=== PATIENT | female | born 1980 | race Caucasian/White ===

== ENCOUNTER 2016-06-07 12:50 | Inpatient (IN) | payer OTHER ==
[~2016-06-07] VITALS: Ht 157.5 cm; Wt 68.0 kg
[~2016-06-07 12:50] MED LIST: ALBUTEROL 3 ML3 ML INH; ALBUTEROL0.09 MG/A1 INH; AMOX-CLAV 875-1 EACH PO; AUGMENTIN 875875 MG PO; AZITHROMYCIN250 MG PO; BENADRYL ALLERG25 M1 PO; COTOLONE5 MG PO; FIORICET 325 MG1 TAB PO; LIDODERM 5% PAT1 PAT EXT; MONTELUKAST SOD10 M1 PO; MUCINEX1200 MG PO; NEURONTIN300 MG PO; OXYCODONE HCL30 M1 PO; OXYCODONE HCL30 MG PO; PAROXETINE30 MG PO; PAXIL40 M1 PO; PREDNISONE 10MG10 M1 PO; PREDNISONE10 M2 PO; PREDNISONE10 MG PO; PRENATAL VITAM1 EAC2 PO; ROBITUSSIN W/CO10 ML PO; ROXICODONE30 M1 PO; SINGULAIR10 MG PO; SPIRIVA18 MCG INH; SYMBICORT 160/41 PUF INH; TESSALON PERLE100 MG PO; TRAZODONE50 MG PO; ZOFRAN ODT4 M1 SL; ZOLPIDEM TARTRAT5 M1 PO; ZYRTEC10 M3 PO
--- NOTE | 2016-06-07 13:01 | ED DYSPNEA/ASTHMA COMPLAINT ---
History of Present Illness General Chief Complaint: Wheezing/Asthma Stated Complaint: ASMTHA ATTACK, ON INHALE R SIDE SHOULDER PAIN Source: patient, old records Exam Limitations: no limitations Vital Signs & Intake/Output Vital Signs & Intake/Output Vital Signs Date Time Temp Pulse Resp B/P Pulse O2 O2 Flow FiO2 Ox Delivery Rate 06/07 1811 98.2 100 20 116/62 91 Nasal 2.5L Cannula 06/07 1406 103 20 116/76 94 Nasal 4.0L Cannula 06/07 1401 94 Nasal 4.0L Cannula 06/07 1325 92 Nasal 3.0L Cannula 06/07 1253 96.0 120 20 128/86 90 Room Air Allergies Coded Allergies: NO KNOWN ALLERGIES (03/22/15) Reconcile Medications Albuterol Sulfate (Albuterol Sulfate Hfa) 90 MCG HFA.AER.AD 2 PUFF INH Q4-6 PRN PRN SHORTNESS OF BREATH 90 MCG PER PUFF Budesonide/Formoterol Fumara (Symbicort 160-4.5 Mcg Inhaler) 160 MCG/4.5 MCG PUF 2 PUF INH BID ASTHMA Oxycodone HCl 30 MG TABLET 1 TAB PO 4 TIMES/DAY PRN TMJ (Reported) Prednisone 10 MG TABLET 3 TAB PO DAILY BREATHING PROBLEMS (Reported) Tiotropium Caliente (Spiriva) 18 MCG CAP.W.DEV 1 CAP INH DAILY ASTHMA ( Reported) Trazodone HCl 50 MG TABLET 1 TAB PO QPM SLEEP (Reported) Triage Note: PT TO ED C/O ASTHMA ATTACK. N/V/D X 1 WEEK. PT HAS BEEN ON 30MG PREDNISONE DAILY. STATES HAS BEEN ON PREDNISONE SINCE DECEMBER. PT SEE'S DR GAMBLE FOR HER ASTHMA. RA SATS 90%. PT APPEARS SOB. PT TAKEN TO ROOM 7. Triage Nurses Notes Reviewed? yes : No Patient currently breastfeeds: No HPI: Patient is a 35-year-old female presents complaining of approximately one week of nausea, vomiting, diarrhea with intermittent in diffuse abdominal pain. Patient also reporting that just prior to arrival to the hospital she began with dyspnea and wheezing. Patient is currently on 30 mg of prednisone daily for cryptogenic organizing pneumonia. Patient has been admitted to the hospital she estimates approximately 20 times over the past 2 years due to respiratory issues. Patient has never been placed on a mechanical ventilator. Cough is nonproductive. Wheezing and dyspnea is currently severe. Patient reports that the vomiting and diarrhea has waxed and waned. The past couple of days the stool has been dark and at times appeared black. Patient started taking Pepto- Bismol once a day on Friday. Right posterior thoracic pain intermittent and sharp in nature. Patient denies fevers. Past History Travel History Traveled to [place] past 21 day No Medical History Any Pertinent Medical History? see below for history Neurological: NONE EENT: TMJ arthritis s/p jaw surgery at [facility] 2010 Cardiovascular: syncope (vasovagal(has had cardio eval)) Respiratory: asthma, bronchitis, pneumonia Gastrointestinal: constipation (IBS), irritable bowel syndrome Hepatic: NONE Renal: NONE Musculoskeletal: fibromyalgia Psychiatric: anxiety Endocrine: NONE Blood Disorders: NONE Cancer(s): NONE BUSINESS LIBRARIAN/Reproductive: NONE History of MRSA: No History of VRE: No History of CDIFF: No Pneumonia Vaccine: 03/23/15 Surgical History Surgical History: appendectomy, plantar wart removal jaw surgery for TMJ Psychosocial History Who do you live with Family Services at Home None What is your primary language Italian Tobacco Use: Never used ETOH Use: denies use Illicit Drug Use: denies illicit drug use Family History Family History, If Any: FATHER (Asthma). FH: diabetes mellitus UNCLE-MATERNAL (BOOP). GRANDMOTHER-MATERNAL (CHF). Relation not specified for: FH: CAD (coronary artery disease) FH: HTN (hypertension) FH: ovarian cancer FH: uterine cancer Hx Contributory? No Review of Systems Review of Systems Constitutional: Denies: chills, fever. EENTM: Reports: no symptoms. Respiratory: Reports: see HPI. Cardiovascular: Denies: chest pain. GI: Reports: see HPI. Genitourinary: Reports: no symptoms. Musculoskeletal: Reports: back pain. Skin: Reports: no symptoms. Neurological/Psychological: Reports: no symptoms. Hematologic/Endocrine: Reports: no symptoms. Immunologic/Allergic: Reports: no symptoms. Physical Exam Physical Exam General Appearance: alert, awake Head: atraumatic, normal appearance Eyes: Bilateral: normal appearance, PERRL, EOMI. Ears, Nose, Throat: normal pharynx, normal ENT inspection, hearing grossly normal Neck: normal inspection, supple, full range of motion Respiratory: INCREASED RESPIRATORY EFFORT. dIFFUSE MODERATE INSPIRATORY AND EXPIRATORY WHEEZING WITH DIMINISHED LUNG SOUNDS Cardiovascular: tachycardia (REGULAR RHYTHM) Gastrointestinal: normal bowel sounds, soft, MILD RIGHT UPPER QUADRANT TENDERNESS Extremities: normal inspection, normal capillary refill, normal range of motion Neurologic/Psych: awake, alert, oriented x 3 Skin: intact, normal color, warm/dry Lymphatic: no anterior cervical carol Core Measures ACS in differential dx? No Severe Sepsis Present: No Septic Shock Present: No Progress Differential Diagnosis: asthma, bronchitis, pulmonary embolism, pneumonia, intra -abdominal infection, gastroenteritis, biliary colic, cholecystitis Plan of Care: Orders Procedure Date/time Status Regular Diet 06/08 B Active Saline Lock 06/07 1935 Active Misc Message 06/07 1935 Active ED Holding Orders 06/07 1935 Active Admit to inpatient 06/07 1935 Active Code Status 06/07 1935 Active Patient Data 06/07 1928 Active ARTERIAL BLOOD GAS (GEN) 06/07 1827 Active D-DIMER 06/07 1459 Complete Intake & Output 06/07 1350 Active LIPASE 06/07 1308 Complete HUMAN BETA HCG SCREEN 06/07 1308 Complete COMPREHENSIVE METABOLIC PANEL 06/07 1308 Complete CBC WITHOUT DIFFERENTIAL 06/07 1308 Complete AMYLASE 06/07 1308 Complete Laboratory Tests 06/07/16 1905: pH 7.41, pCO2 39, pO2 71 L, HCO3 24, ABG O2 Sat (Measured) 94.0 L, P-50 (Temp Corrected) Y, Carboxyhemoglobin 0.6 L, O2 Concentration % 3L, Temperature 97.2, O2 Delivery Method N/C, Phlebotomy Draw Site RIGHT RADIAL 06/07/16 1640: D-Dimer 2303 H 06/07/16 1530: CBC w Diff MAN DIFF ORDERED, RBC 5.36, MCV 84.4, MCH 28.2, RDW 14.7 H, MPV 8.1, Gran % 60.7, Lymphocytes % 15.8 L, Monocytes % 2.5, Eosinophils % 20.8 H, Basophils % 0.2, Absolute Granulocytes 10.7 H, Segmented Neutrophils 57, Band Neutrophils 2, Absolute Lymphocytes 2.8, Lymphocytes 16 L, Monocytes 5, Absolute Monocytes 0.4, Eosinophils 19 H, Absolute Eosinophils 3.6, Basophils 1 , Absolute Basophils 0, Platelet Estimate VERIFIED BY SMEAR, Normocytic RBCs VERIFIED, Normochromic RBCs VERIFIED, PUBS MCHC 33.4, Fld Total RBCs Counted 100 06/07/16 1340: Anion Gap 14, Estimated GFR > 60, BUN/Creatinine Ratio 11.3, Glucose 91, Calcium 9.7, Total Bilirubin 0.6, AST 22, ALT 26, Alkaline Phosphatase 104, Total Protein 7.2, Albumin 4.3, Globulin 2.9, Albumin/Globulin Ratio 1.5, Amylase 35, Lipase 110, Total Beta HCG NEGATIVE 1350: Patient reports mild improvement. Discussed with Dr. Mei. 1450: Patient reports improvement of wheezing but continues with dyspnea. Patient's oxygen saturation only 91% on 2 L via nasal cannula. Dr. Gamble paged to discuss 1454: Discussed with Dr. Gamble: recommends adding on d-dimer. Agrees with medications given, no other medication recommendations at this time. 1620: No change in clinical condition. Discussed results with patient. Awaiting d-dimer results. 1820: Discussed with Dr. Sky: will admit, requesting ABG (ARTI COSBY,THOR) Diagnostic Imaging: Viewed by Me: Radiology Read, Ultrasound. Discussed w/RAD: Radiology Read, Ultrasound. Radiology Impression: PATIENT: TERESA RODRIGEZ PRESENT AGE: 35 PATIENT ACCOUNT NO: [id number] : 81 LOCATION: [facility] ORDERING PHYSICIAN: THOR COSBY SERVICE DATE: 06/07/16 EXAM TYPE: US - US-LIMITED ABDOMEN EXAMINATION: US ABDOMEN LIMITED CLINICAL INFORMATION: Abdominal pain. Vomiting and diarrhea. Right upper quadrant abdominal pain.. COMPARISON: Abdominal CT scan of 08/27/07. TECHNIQUE: Real-time imaging of the right upper quadrant abdominal viscera. FINDINGS: PANCREAS: Much of the body and tail are obscured by overlying bowel gas. Visualized portions are unremarkable. LIVER: Normal. The liver demonstrates normal size, contour and echogenicity. No focal lesion or intrahepatic biliary duct dilatation. GALLBLADDER: Normal. The gallbladder is physiologically distended without evidence of stones, sludge, polyps, wall thickening or pericholecystic fluid. COMMON BILE DUCT: Normal in caliber measuring 0.4 cm in diameter. RIGHT KIDNEY: Normal. No hydronephrosis. No renal calculi or focal parenchymal lesions. The kidney measures 8.6 cm in maximum dimension. FREE FLUID: None. IMPRESSION: Unremarkable examination. Incomplete assessment of the pancreas. DICTATED BY: TERESA RUFFIN MD DATE/TIME DICTATED:06/07/161353 CORRUGATOR MACHINE OPERATOR:RAD.LEON DATE/TIME TRANSCRIBED:06/07/161353 CONFIDENTIAL, DO NOT COPY WITHOUT APPROPRIATE AUTHORIZATION. <Electronically signed in Other Vendor System> SIGNED BY: TERESA RUFFIN MD 06/07/16 1401, PATIENT: TERESA RODRIGEZ PRESENT AGE: 35 PATIENT ACCOUNT NO: [id number] : 81 LOCATION: [facility] ORDERING PHYSICIAN: THOR COSBY SERVICE DATE: 140 EXAM TYPE: RAD - XRY-PORTABLE CHEST XRAY EXAMINATION: XR PORTABLE CHEST CLINICAL INFORMATION: Dyspnea, hypoxia and cough. COMPARISON: 04/18/2016 and . TECHNIQUE: Portable view of the chest was obtained. FINDINGS: No acute significant abnormality is noted involving the heart, lungs, mediastinum, bony thorax or soft tissues. Coarse reticulonodular markings are present at both bases and are unchanged. Previously, it was suggested that this might be multifocal pneumonia, however, these findings may be chronic as the findings back in 2014 appear similar as well. IMPRESSION: A worrisome finding is not present. Coarse reticulonodular opacities at the lung bases without significant change. DICTATED BY: ODETTE BLAIR MD DATE/TIME DICTATED:06/07/161447 CORRUGATOR MACHINE OPERATOR:NABOR DATE/TIME TRANSCRIBED:06/07/161447 CONFIDENTIAL, DO NOT COPY WITHOUT APPROPRIATE AUTHORIZATION. <Electronically signed in Other Vendor System> SIGNED BY: ODETTE BLAIR MD 06/07/16 1513, PATIENT: TERESA RODRIGEZ PRESENT AGE: 35 PATIENT ACCOUNT NO: [id number] : 81 LOCATION: [facility] ORDERING PHYSICIAN: THOR COSBY SERVICE DATE: 06/07/16 EXAM TYPE: CAT - CTA CHEST-PULMONARY EMBOLISM EXAMINATION: CT ANGIOGRAM OF THE CHEST WITH AND WITHOUT CONTRAST (CT PULMONARY ANGIOGRAM FOR PE) CLINICAL INFORMATION: 35-year-old female patient with dyspnea and elevated d-dimer. COMPARISON: CTA of the chest on 09/09/2014, CT of the chest on 05/31/2015, and CTA of the chest on 04/18/2016. No pulmonary emboli were seen on the prior CTA exams of the chest. Rather, both exams demonstrated lung disease. TECHNIQUE: Prior to contrast administration, noncontrast localization images were obtained. Subsequently, multidetector volumetric imaging was performed from the thoracic inlet to below the diaphragms following the administration of 95 mL Optiray 320 intravenous contrast. No contrast reaction reported Sagittal, coronal, and MIP oblique sagittal reformatted images were obtained on the CT workstation, uploaded to PACS, and reviewed. Total exam dose-length product 370 mGy-cm FINDINGS: QUALITY OF STUDY/CONTRAST BOLUS: Satisfactory. (Levo phase) PULMONARY ARTERIES: No central or segmental pulmonary emboli. THORACIC AORTA: No aneurysm or dissection. LUNG: Reexamination of the lungs again shows the bilateral patchy groundglass opacities that have been previously described. There is a patchy distribution with preservation of lung volumes. The distribution of this patient's migratory lung disease waxes and wanes, demonstrating fleeting evolution. It is important to note, that the patient's lung disease has significantly improved on long-term steroids. PLEURA: No pleural effusion or pneumothorax. MEDIASTINUM: Normal heart size. No pericardial effusion. No hilar or mediastinal lymphadenopathy. No evidence of septal bowing or right heart strain. CHEST WALL/AXILLA: No axillary or internal mammary lymphadenopathy. OSSEOUS STRUCTURES: No acute or suspicious osseous abnormality. UPPER ABDOMEN: Unremarkable. No reflux of contrast into the hepatic veins to suggest elevated right heart pressures. IMPRESSION: 1. No evidence of pulmonary embolism. 2. Significant improvement in the patient's lung disease. The radiologic pattern fits the diagnosis of cryptogenic organizing pneumonia. VTE: Negative. DICTATED BY: ATTILA GALINDO MD DATE/TIME DICTATED: 06/07/161802 CORRUGATOR MACHINE OPERATOR:NABOR DATE/TIME TRANSCRIBED:06/07/161802 CONFIDENTIAL, DO NOT COPY WITHOUT APPROPRIATE AUTHORIZATION. <Electronically signed in Other Vendor System> SIGNED BY: ATTILA GALINDO MD 06/07/16 1832 Initial ED EKG: none Departure Departure Disposition: STILL A PATIENT Condition: Stable Clinical Impression Primary Impression: Status asthmaticus Qualifiers: Asthma severity: severe persistent Qualified Code: J45.52 - Severe persistent asthma with status asthmaticus Referrals: THEODORA OCONNOR MD (PCP/Family) Departure Forms: Customer Survey General Discharge Information Admission Note Spoke With: MICK SKY MD Documentation of Exam: Documentation of any treatments & extenuating circumstances including Concerns Regarding Discharge (functional status, medication knowledge or non-compliance, living conditions, etc.) that warrant an admission rather than observation: Supplemental oxygen, IV corticosteroids, total respiratory care, pulmonary consultation. Despite continuous high-dose nebulizer treatment, IV steroids, IV magnesium patient continues to require supplemental oxygen. Discharge would be medically harmful. Critical Care Note Critical Care Note Critical Care Time: 30-74 min
[2016-06-07] MEDS ORDERED: PREDNISONE10 M2 PO (14:01)
--- NOTE | 2016-06-07 14:01 | ULTRASOUND REPORT ---
EXAMINATION: US ABDOMEN LIMITED CLINICAL INFORMATION: Abdominal pain. Vomiting and diarrhea. Right upper quadrant abdominal pain.. COMPARISON: Abdominal CT scan of 08/27/07. TECHNIQUE: Real-time imaging of the right upper quadrant abdominal viscera. FINDINGS: PANCREAS: Much of the body and tail are obscured by overlying bowel gas. Visualized portions are unremarkable. LIVER: Normal. The liver demonstrates normal size, contour and echogenicity. No focal lesion or intrahepatic biliary duct dilatation. GALLBLADDER: Normal. The gallbladder is physiologically distended without evidence of stones, sludge, polyps, wall thickening or pericholecystic fluid. COMMON BILE DUCT: Normal in caliber measuring 0.4 cm in diameter. RIGHT KIDNEY: Normal. No hydronephrosis. No renal calculi or focal parenchymal lesions. The kidney measures 8.6 cm in maximum dimension. FREE FLUID: None. IMPRESSION: Unremarkable examination. Incomplete assessment of the pancreas.
[2016-06-07] MEDS ORDERED: TRAZODONE HCL50 M1 PO (14:02)
[2016-06-07] MEDS ORDERED: OXYCODONE HCL30 M1 PO (14:03)
--- NOTE | 2016-06-07 15:13 | RADIOLOGY REPORT ---
EXAMINATION: XR PORTABLE CHEST CLINICAL INFORMATION: Dyspnea, hypoxia and cough. COMPARISON: 04/18/2016 and 09/09/2014. TECHNIQUE: Portable view of the chest was obtained. FINDINGS: No acute significant abnormality is noted involving the heart, lungs, mediastinum, bony thorax or soft tissues. Coarse reticulonodular markings are present at both bases and are unchanged. Previously, it was suggested that this might be multifocal pneumonia, however, these findings may be chronic as the findings back in 2014 appear similar as well. IMPRESSION: A worrisome finding is not present. Coarse reticulonodular opacities at the lung bases without significant change.
[2016-06-07 15:41] LABS: ABSOLUTE BASOPHIL COUNT 0 /CUMM (0.0-0.2); ABSOLUTE EOSINOPHIL COUNT 3.6 /CUMM (0.0-0.7); ABSOLUTE GRANULOCYTE CT 10.7 /CUMM (1.4-6.5); ABSOLUTE LYMPH COUNT 2.8 /CUMM (1.2-3.4); ABSOLUTE MONOCYTE COUNT 0.4 /CUMM (0.10-0.60); BASOPHIL % 0.2 % (0.0-2.0); EOSINOPHIL % 20.8 % (0-5); GRANULOCYTE % 60.7 % (42.2-75.2); HEMATOCRIT 45.2 % (37-47); MEAN CORPUSCULAR HGB 28.2 PG (27.0-31.0); MEAN CORPUSCULAR HGB CONC 33.4 G/DL (33.0-37.0); MEAN CORPUSCULAR VOLUME 84.4 FL (81.0-99.0); MEAN PLATELET VOLUME 8.1 FL (7.4-10.4); PLATELET COUNT 253 /CUMM (130-400); RBC DISTRIBUTION WIDTH 14.7 % (11.5-14.5); RED BLOOD CELL CT 5.36 /CUMM (4.20-5.40); WHITE BLOOD CELL COUNT 17.6 /CUMM (4.8-10.8)
--- NOTE | 2016-06-07 18:34 | CT SCAN REPORT ---
EXAMINATION: CT ANGIOGRAM OF THE CHEST WITH AND WITHOUT CONTRAST (CT PULMONARY ANGIOGRAM FOR PE) CLINICAL INFORMATION: 35-year-old female patient with dyspnea and elevated d-dimer. COMPARISON: CTA of the chest on 09/09/2014, CT of the chest on 05/31/2015, and CTA of the chest on 04/18/2016. No pulmonary emboli were seen on the prior CTA exams of the chest. Rather, both exams demonstrated lung disease. TECHNIQUE: Prior to contrast administration, noncontrast localization images were obtained. Subsequently, multidetector volumetric imaging was performed from the thoracic inlet to below the diaphragms following the administration of 95 mL Optiray 320 intravenous contrast. No contrast reaction reported Sagittal, coronal, and MIP oblique sagittal reformatted images were obtained on the CT workstation, uploaded to PACS, and reviewed. Total exam dose-length product 370 mGy-cm FINDINGS: QUALITY OF STUDY/CONTRAST BOLUS: Satisfactory. (Levo phase) PULMONARY ARTERIES: No central or segmental pulmonary emboli. THORACIC AORTA: No aneurysm or dissection. LUNG: Reexamination of the lungs again shows the bilateral patchy groundglass opacities that have been previously described. There is a patchy distribution with preservation of lung volumes. The distribution of this patient's migratory lung disease waxes and wanes, demonstrating fleeting evolution. It is important to note, that the patient's lung disease has significantly improved on long-term steroids. PLEURA: No pleural effusion or pneumothorax. MEDIASTINUM: Normal heart size. No pericardial effusion. No hilar or mediastinal lymphadenopathy. No evidence of septal bowing or right heart strain. CHEST WALL/AXILLA: No axillary or internal mammary lymphadenopathy. OSSEOUS STRUCTURES: No acute or suspicious osseous abnormality. UPPER ABDOMEN: Unremarkable. No reflux of contrast into the hepatic veins to suggest elevated right heart pressures. IMPRESSION: 1. No evidence of pulmonary embolism. 2. Significant improvement in the patient's lung disease. The radiologic pattern fits the diagnosis of cryptogenic organizing pneumonia. VTE: Negative.
--- NOTE | 2016-06-07 19:33 | History & Physical ---
RYLIEJULIA SHEEHAN 06/07/161931: General Information and HPI MD Statement: I have seen and personally examined TERESA RODRIGEZ and documented this H&P. The patient is a 35 year old F who presented with a patient stated chief complaint of [asthma]. Source of Information: patient, old records Exam Limitations: no limitations History of Present Illness: 35-year-old female with PMH of PNA, asthma attacks, severe dust sensitivity, recent admission on March 2016 to [facility] for shortness of breath during which patient was diagnosed with cryptogenic pneumonia by Dr. Verdugo and is started on long-term prednisone therapy. Two weeks ago patient had two close relatives with URI symptoms, she is not a smoker and received flu vaccine this year. Moving forward, patient developed worsenig SOB and productive cough with minimal sputum production, congestion and sinus fullness and tenderness and PND. Over the span two weeks she needed more Albuterol inhaler and became wheezy. Denies fever, chills, chest pain, AMS. About a week into her worsening respiratory symptoms, patient develped watert diarrhea and N/V ( mainly food and no blood; 3-4 episodes of V/D every day associated with abdominal pain, no blood , no travel). She had a phone conversation with Dr. Verdugo, who recommended her to come to the Ed and get checked. After leaving her house, her dyspnea got severe and she became confused and slurred. According to her friend/patient she had loud expiratory/inspiratory wheeze. Allergies/Medications Allergies: Coded Allergies: NO KNOWN ALLERGIES (03/22/15) Home Med list Albuterol Sulfate (Albuterol Sulfate Hfa) 90 MCG HFA.AER.AD 2 PUFF INH Q4-6 PRN PRN SHORTNESS OF BREATH 90 MCG PER PUFF Budesonide/Formoterol Fumara (Symbicort 160-4.5 Mcg Inhaler) 160 MCG/4.5 MCG PUF 2 PUF INH BID ASTHMA Oxycodone HCl 30 MG TABLET 1 TAB PO 4 TIMES/DAY PRN TMJ (Reported) Prednisone 10 MG TABLET 3 TAB PO DAILY BREATHING PROBLEMS (Reported) Tiotropium [place] (Spiriva) 18 MCG CAP.W.DEV 1 CAP INH DAILY ASTHMA ( Reported) Trazodone HCl 50 MG TABLET 1 TAB PO QPM SLEEP (Reported) Compliance With Home Meds: GOOD Past History Travel History Traveled to [place] past 21 day No Medical History Neurological: NONE EENT: TMJ arthritis s/p jaw surgery at [facility] 2010 Cardiovascular: syncope (vasovagal(has had cardio eval)) Respiratory: asthma, bronchitis, pneumonia Gastrointestinal: constipation (IBS), irritable bowel syndrome Hepatic: NONE Renal: NONE Musculoskeletal: fibromyalgia Psychiatric: anxiety Endocrine: NONE Blood Disorders: NONE Cancer(s): NONE 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 FH: diabetes mellitus UNCLE-MATERNAL (BOOP). GRANDMOTHER-MATERNAL (CHF). Relation not specified for: FH: CAD (coronary artery disease) FH: HTN (hypertension) FH: ovarian cancer FH: uterine cancer Psychosocial History Who Do You Live With? SIGNIFICANT OTHER Services at Home: None Primary Language: Sinhala ETOH Use: denies use Illicit Drug Use: denies illicit drug use Functional Ability ADLs Independent: dressing, eating, toileting, bathing. Ambulation: independent IADLs Independent: shopping, housework, finances, food prep, telephone, transportation , medication admin. Review of Systems Review of Systems Constitutional: Reports: see HPI, malaise. Denies: no symptoms, chills, diaphoresis, fever, weakness, unexplained weight loss. EENTM: Denies: no symptoms, see HPI, blurred vision, double vision, visual changes, eye pain, eye drainage, eye tearing, icterus, ear discharge, ear pain, ear redness, hearing changes, nasal congestion, epistaxis, nasal pain, throat pain, throat swelling, mouth pain, tooth pain. Cardiovascular: Reports: see HPI. Denies: chest pain, edema, orthopena, palpitations, peripheral edema, syncope. Respiratory: Reports: cough, short of breath, sputum production, wheezing. Denies: hemoptysis, orthopnea. GI: Denies: abdominal pain, bloating, constipation, diarrhea, distention, bowel incontinence, melena, nausea, bloody stool, changes in stool, vomiting, steatorrhea. Genitourinary: Denies: discharge, dysuria, frequency, hematuria, hesitation, nocturia, pain, urgency. Musculoskeletal: Denies: back pain, gout, joint pain, joint swelling, muscle pain, muscle stiffness, neck pain. Skin: Denies: cysts, change in skin color, change in hair/nails, dryness, erythema, jaundice, lesions, lymphangitis, lumps, moles, rash. Neurological/Psychological: Reports: headache. Denies: anxiety, ataxia, cognitive dysfunction, confusion, depressed, dementia, emotional problems, numbness, paresthesia, pre-existing deficit, petit mal seizures, tingling, tremors, tonic-clonic seizures, unable to move lower ext, unable to move upper ext, weakness, other. Hematologic/Endocrine: Denies: bruising, bleeding, polyuria, polydipsia, other. Immunologic/Allergic: Denies: splenectomy, HIV/AIDS, lymphadenopathy, other. All Other Systems: Reviewed and Negative Exam & Diagnostic Data Last 24 Hrs of Vital Signs/I&O Vital Signs Date Time Temp Pulse Resp B/P Pulse O2 O2 Flow FiO2 Ox Delivery Rate 06/07 2111 Nasal 3.0L Cannula 06/07 2022 96.4 89 18 100/59 94 Nasal 3.0L Cannula 06/07 1811 98.2 100 20 116/62 91 Nasal 2.5L Cannula 06/07 1406 103 20 116/76 94 Nasal 4.0L Cannula 06/07 1401 94 Nasal 4.0L Cannula 06/07 1325 92 Nasal 3.0L Cannula 06/07 1253 96.0 120 20 128/86 90 Room Air Intake & Output 06/07 1600 06/07 0800 06/07 0000 Intake Total 100 Output Total Balance 100 Intake, IV 100 Patient 160 lb Weight Physical Exam General Appearance Alert, Oriented X3, Cooperative, Mild Distress Skin No Rashes, No Breakdown, No Significant Lesion HEENT Atraumatic, PERRLA, EOMI, Mucous Membr. moist/pink Neck Supple, No JVD, No thryomegaly, +2 Carotid Pulse wo Bruit, No LAD Lymphatic Axillary nl, Cervical nl Cardiovascular Normal S1, Normal S2, No Murmurs Lungs expiratory wheeze, no pulsus paradoxus Abdomen Normal Bowel Sounds, Soft Neurological Normal Speech Extremities No Cyanosis, no central cyanosis Vascular Normal Pulses, Pulses Symmetrical Assessment/Plan Assessment: 35-year-old woman with past medical history significant for recurrent asthma attack and cryptogenic pneumonia was admitted for asthma exacerbation and gastroenteritis. ABG: PH 7.41/PCO2 39/PO2 71/HCO3 24 WBC 17.6 with left shift but no bandemia, platelet count 253 DD: 2303 BEP: Na 143, K 4.3, AG14, BUN 9,Cr 0.8, Abdominal ultrasound: Insignificant Chest CTA: Negative for pulmonary embolism showing cryptogenic pneumonia no significant change compared to previous CTs Chest x-ray: Coarse reticular nodular changes compatible w/ changes in 2015; no acute change List of active problems #1 asthma exacerbation * Continue IV Solu-Medrol 40 mg every 8 * Continue pro-air 3 mL every 4 as needed * Continue Symbicort 2 puffs twice a day * Continuous Spiriva 2 puffs twice a day * IV hydration with normal saline 75 mL per hour-repleting insensible water loss * No sputum cultures * Off antibiotics * O2 supplement is a cannula targets O2 saturation above 92% * TRC [id number] as needed #2 gastroenteritis; * Check C. difficile * Advance diet if tolerated clear liquids * With a chlorpropamide 5 mg every 4 as needed for nausea * IV fluids replacement as it was discussed above #3 cryptogenic pneumonia * IV Solu-Medrol as was discussed above * Consult pulmonology in the a.m. and Dr. Verdugo on Friday #4 leukocytosis-was possibly secondary to prednisone treatments no focal source of infection watch off antibiotics #5 chronic pain * Continue oxycodone 30 mg every 4 h * Tylenol 650 mg every 4 as needed for moderate moderate pain Full code Heparin 5000 U Q8 SQ As Ranked By This Provider Problem List: 1. Status asthmaticus Qualifiers Asthma severity: severe persistent Qualified Code: J45.52 - Severe persistent asthma with status asthmaticus 2. Cryptogenic organizing pneumonia 3. Leukocytosis Core Measures/Miscellaneous Acute Coronary Syndrome ACS Diagnosis: No Cerebrovascular Accident CVA/TIA Diagnosis: No Congestive Heart Failure CHF Diagnosis: No Venous Thromboembolism VTE Risk Factors: Acute medical illness, Obesity VTE Prophylaxis Ordered Inpt: Mech & Pharm No Mech VTE prophylaxis d/t: No contraindications No VTE Pharm Prophylaxis d/t: VTE low risk VTE Diagnosis: No VTE Type: NONE VTE Confirmed by (Test): NONE Severe Sepsis Severe Sepsis Present: No Septic Shock Septic Shock Present: No Miscellaneous Documentation Attending Case Discussed With: MICK MORRISON MD Primary Care Physician: ELVIN CHAPARRO,THEODORA Mehta 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 Level of Patient Care: General Medicine Resident Review Statement Resident Statement: examined this patient, discussed with internet consultant, agreed with internet consultant, discussed with family, reviewed EMR data (avail), discussed with nursing , discussed with case mgmt, reviewed images, amended to note MICK MORRISON 06/08/16 0804: Attending MD Review Statement Attending Statement Attending MD Statement: examined this patient, discuss w/resident/PA/CIG[employer] C[employer]ON SEALER, agreed w/resident/PA/CIGAR[employer] C[employer]ON SEALER, reviewed EMR data (avail), reviewed images, amended to note Attending Assessment/Plan: Cc nausea vomiting diarrhea, worsening of shortness of breath PMH: Asthma, recently diagnosed cryptogenic organizing pneumonia currently on tapering dose of steroid Patient had one week duration of nausea vomiting and diarrhea with vague abdominal pain, not relieved after bowel movement, it is not crampy. She also had upper respiratory symptoms since last 2 weeks along with cough and sputum production. She was on her way to ER for evaluation of diarrhea when her shortness of breath worsened. Vitals: Afebrile, mild tachycardia, RR, BP, within acceptable range O2 saturation well on 3 L. On exam: A O 3, no respiratory distress, anxious, neck supple, no lymphadenopathy, mucosa moist, no pharyngeal congestion. CVS: S1-S2, RRR. RS: No obvious rhonchi or wheezing heard. Abdomen soft, NT, ND, no guarding are rigidity, bowel sounds present. No focal neurological deficit. Labs: WBC 17.6, BMP, LFT unremarkable, d-dimer 2303. ABG does not show any respiratory acidosis., Lipase 110 Imaging: CT angiogram chest: Significant improvement in the patient's lung disease. Ultrasound of the abdomen: Unremarkable. Assessment and plan #1 asthma exacerbation: Even though patient had wheezing at the time of presentation in ER, eventually improved quite a bit with nebulization treatment, continue IV methylprednisolone 40 mg every 8 hour, albuterol nebulizations, taper off oxygen. Informed pulmonology about patient being in hospital, patient is under treatment for cryptogenic organizing pneumonia. #2 nausea vomiting and diarrhea: Probably a viral origin, check C. difficile as patient has been in hospital multiple times. If diarrhea doesn't improve then patient may benefit from stool cultures and stool ova parasite. Continue gentle hydration. No Lomotil or Imodium. #3 DVT prophylaxis with Lovenox, adequate pain control.
[2016-06-07 23:42] VITALS: BP 112/70
--- NOTE | 2016-06-08 05:19 | PN- Housestaff ---
Subjective Follow-up For: Asthma exacerbation Cryptogenic pneumonia Chronic pain Complaints: wheeze- improving, shortness of breath-is improving, mild abdominal pain,improving Subjective: Patient was visited and interviewed this morning. Over overnight she received respiratory treatment and IV Solu-Medrol. His symptoms has improved. Nausea vomiting diarrhea has subsided patient tolerated food very well however wishes to keep the diet on full liquid diet. Vital signs are stable she is on 3 L of oxygen nasal cannula ambulating without oxygen comfortably. Review of Systems Constitutional: Denies: chills, diaphoresis, fever, malaise, weakness, unexplained weight loss. EENTM: Denies: blurred vision, double vision, visual changes, eye pain, eye drainage, eye tearing, icterus, ear discharge, ear pain, ear redness, hearing changes, nasal congestion, epistaxis, nasal pain, throat pain, throat swelling, mouth pain, tooth pain. Cardiovascular: Denies: chest pain, edema, orthopena, palpitations, peripheral edema, syncope. Respiratory: Reports: cough, short of breath, sputum production, wheezing. Denies: hemoptysis, orthopnea. Gastrointestinal: Reports: abdominal pain, bloating, diarrhea, nausea, vomiting. Denies: constipation, distention, bowel incontinence, melena, changes in stool, steatorrhea. Genitourinary: Denies: discharge, dysuria, frequency, hematuria, hesitation, nocturia, pain, urgency. Musculoskeletal: Denies: back pain, gout, joint pain, joint swelling, muscle pain, muscle stiffness, neck pain. Skin: Denies: cysts, change in skin color, change in hair/nails, dryness, erythema, jaundice, lesions, lymphangitis, lumps, moles, rash. Objective Last 24 Hrs of Vital Signs/I&O Vital Signs Date Time Temp Pulse Resp B/P Pulse O2 O2 Flow FiO2 Ox Delivery Rate 06/08 0000 94 Nasal 3.0L Cannula 06/07 2342 97.4 90 20 112/70 92 06/07 2121 94 Nasal 3.0L Cannula 06/07 2110 Nasal 3.0L Cannula 06/07 2022 96.4 89 18 100/59 94 Nasal 3.0L Cannula 06/07 1811 98.2 100 20 116/62 91 Nasal 2.5L Cannula 06/07 1406 103 20 116/76 94 Nasal 4.0L Cannula 06/07 1401 94 Nasal 4.0L Cannula 06/07 1325 92 Nasal 3.0L Cannula 06/07 1253 96.0 120 20 128/86 90 Room Air Intake & Output 06/08 0800 06/08 0000 06/07 1600 Intake Total 1100 525 100 Output Total Balance 1100 525 100 Intake, IV 600 225 100 Intake, Oral 500 300 Patient 150 lb 160 lb Weight Physical Exam General Appearance: Alert, Oriented X3, Cooperative, No Acute Distress Skin: No Rashes, No Breakdown, No Significant Lesion HEENT: Atraumatic, PERRLA, EOMI, Mucous Membr. moist/pink Neck: No JVD, No thryomegaly Cardiovascular: Normal S1, Normal S2, No Murmurs, Gallops Lungs: Clear to Auscultation, Normal Air Movement Abdomen: Normal Bowel Sounds, Soft, No Tenderness, No Hepatospenomegaly Neurological: Normal Speech, Strength at 5/5 X4 Ext Extremities: No Clubbing, No Cyanosis, No Edema, Normal Pulses Vascular: Normal Pulses, Pulses Symmetrical Current Medications: Current Medications Sig/Nathan Start time Last Medication Dose Route Stop Time Status Admin Acetaminophen 650 MG Q4P PRN 06/07 2014 AC PO Albuterol Sulfate 3 ML BID 06/07 2199 AC INH Albuterol Sulfate 3 ML Q4H PRN 06/07 2014 AC INH Albuterol Sulfate 3 ML ONCE ONE 06/07 1315 DC 06/07 INH 06/07 1316 1324 Albuterol Sulfate 3 ML ONCE ONE 06/07 1315 DC 06/07 INH 06/07 1316 1324 Albuterol Sulfate 3 ML ONCE ONE 06/07 1315 DC 06/07 INH 06/07 1316 1324 Albuterol Sulfate 3 ML ONCE ONE 06/07 1315 DC 06/07 INH 06/07 1316 1324 Albuterol Sulfate 3 ML ONCE ONE 06/07 1315 DC 06/07 INH 06/07 1316 1324 Albuterol Sulfate 3 ML ONCE ONE 06/07 1315 DC 06/07 INH 06/07 1316 1324 Budesonide/ 2 PUF BID 06/07 2199 06/07 Formoterol Fumarate INH 2329 Heparin Sodium 5,000 UNIT Q8 06/07 2199 AC 06/08 (Porcine) SC 0608 Ipratropium [place] 2.5 ML ONCE ONE 06/07 1315 DC 06/07 INH 06/07 1316 1324 Magnesium Sulfate 1 GM Q2H 06/07 1315 DC 06/07 Dextrose/Water 100 ML IV 06/07 1714 1446 Methylprednisolone 40 MG Q8 06/07 2200 AC 06/08 IV 0608 Methylprednisolone 0 .STK-MED ONE 06/07 1353 DC .ROUTE Methylprednisolone 125 MG ONCE ONE 06/07 1315 DC 06/07 IV 06/07 1316 1400 Metoclopramide HCl 5 MG AC PRN 06/07 2014 AC PO Omeprazole 20 MG DAILY AC 06/08 0700 AC 06/08 PO 0611 Oxycodone HCl 30 MG Q4 HRS NEEDED PRN 06/07 2014 AC 06/08 PO 0609 Sodium Chloride 1,000 ML Q13H 06/07 2145 AC 06/07 IV 2148 Tiotropium [place] 1 PUF DAILY 06/08 1000 AC INH Trazodone HCl 50 MG QPM 06/07 220 AC 06/07 PO 2150 Last 24 Hrs of Lab/Luke Results Last 24 Hrs of Labs/Mics: Laboratory Tests 06/08/16 0712: Sodium Pending, Potassium Pending, Chloride Pending, Carbon Dioxide Pending, Anion Gap Pending, BUN Pending, Creatinine Pending, BUN/Creatinine Ratio Pending , CBC w Diff Pending, WBC Pending, RBC Pending, Hgb Pending, Hct Pending, MCV Pending, MCH Pending, RDW Pending, Plt Count Pending, MPV Pending, PUBS MCHC Pending 06/07/16 1905: pH 7.41, pCO2 39, pO2 71 L, HCO3 24, ABG O2 Sat (Measured) 94.0 L, P-50 (Temp Corrected) Y, Carboxyhemoglobin 0.6 L, O2 Concentration % 3L, Temperature 97.2, O2 Delivery Method N/C, Phlebotomy Draw Site RIGHT RADIAL 06/07/16 1640: D-Dimer 2303 H 06/07/16 1530: CBC w Diff MAN DIFF ORDERED, RBC 5.36, MCV 84.4, MCH 28.2, RDW 14.7 H, MPV 8.1, Gran % 60.7, Lymphocytes % 15.8 L, Monocytes % 2.5, Eosinophils % 20.8 H, Basophils % 0.2, Absolute Granulocytes 10.7 H, Segmented Neutrophils 57, Band Neutrophils 2, Absolute Lymphocytes 2.8, Lymphocytes 16 L, Monocytes 5, Absolute Monocytes 0.4, Eosinophils 19 H, Absolute Eosinophils 3.6, Basophils 1 , Absolute Basophils 0, Platelet Estimate VERIFIED BY SMEAR, Normocytic RBCs VERIFIED, Normochromic RBCs VERIFIED, PUBS MCHC 33.4, Fld Total RBCs Counted 100 06/07/16 1340: Anion Gap 14, Estimated GFR > 60, BUN/Creatinine Ratio 11.3, Glucose 91, Calcium 9.7, Total Bilirubin 0.6, AST 22, ALT 26, Alkaline Phosphatase 104, Total Protein 7.2, Albumin 4.3, Globulin 2.9, Albumin/Globulin Ratio 1.5, Amylase 35, Lipase 110, Total Beta HCG NEGATIVE Microbiology 06/07 2131 STOOL: Clostridium difficile Toxin A & B - COLB Lines/Diet/Fluids Fluids/Infusions: normal saline Assessment/Plan Assessment: 35-year-old woman with past medical history significant for recurrent asthma attack and cryptogenic pneumonia was admitted for asthma exacerbation and gastroenteritis. #1 asthma exacerbation * Continue IV Solu-Medrol 40 mg every 8 * Continue pro-air 3 mL every 4 as needed * Continue Symbicort 2 puffs twice a day * Continuous Spiriva 2 puffs twice a day * IV hydration with normal saline 75 mL per hour-repleting insensible water loss * No sputum cultures * Off antibiotics * O2 supplement is a cannula targets O2 saturation above 92% * TRC [id number] as needed * Please call Dr. Verdugo and informed him that patient was admitted to the hospital #2 gastroenteritis; * Full liquid diet; patient's could tolerate eating please advance the diet to regular food * Follow C. difficile * Advance diet if tolerated clear liquids * With a chlorpropamide 5 mg every 4 as needed for nausea * IV fluids replacement as it was discussed above #3 cryptogenic pneumonia * IV Solu-Medrol as was discussed above * Consult pulmonology in the a.m. and Dr. Verdugo on Friday #4 leukocytosis-was possibly secondary to prednisone treatments no focal source of infection watch off antibiotics #5 chronic pain * Continue oxycodone 30 mg every 4 h * Tylenol 650 mg every 4 as needed for moderate moderate pain Problem List: 1. Status asthmaticus 2. Depression 3. Vasovagal syncopes 4. Cryptogenic organizing pneumonia 5. TMJ (temporomandibular joint syndrome) 6. Leukocytosis Pain Ratin Pain Location: Back and abdomen Pain Goal: Pain 4 or less Pain Plan: Continue oxycodone 30 mg every 4 h Tylenol 650 mg every 4 as needed for moderate moderate pain Tomorrow's Labs & Rationales: none DVT/Prophylaxis: pharmacological
--- NOTE | 2016-06-08 08:06 | Admission Certification ---
Admission Certification Certification Statement - As attending physician, I certify that at the time of - admission, based on clinical presentation, severity of - symptoms, need for further diagnostic testing and - therapeutic interventions, and risk of adverse outcomes - without in-hospital treatment, in my clinical assessment, - this patient requires an acute hospital stay for a minimum - of two nights or longer. I have also considered psychsocial - factors such as support system, advanced age, financial - issues, cognitive issues, and failed out-patient treatments, - past re-admission history, safety of patient, and lack of - compliance as applicable. Specific rationale supporting this admission is: Asthma exacerbation, dehydration, vomiting diarrhea
[2016-06-08 08:21] LABS: ABSOLUTE BASOPHIL COUNT 0.1 /CUMM (0.0-0.2); ABSOLUTE EOSINOPHIL COUNT 1.1 /CUMM (0.0-0.7); ABSOLUTE GRANULOCYTE CT 15.9 /CUMM (1.4-6.5); ABSOLUTE LYMPH COUNT 3.7 /CUMM (1.2-3.4); ABSOLUTE MONOCYTE COUNT 0.8 /CUMM (0.10-0.60); BASOPHIL % 0.4 % (0.0-2.0); EOSINOPHIL % 5.1 % (0-5); GRANULOCYTE % 73.6 % (42.2-75.2); HEMATOCRIT 41.3 % (37-47); MEAN CORPUSCULAR HGB 28.4 PG (27.0-31.0); MEAN CORPUSCULAR HGB CONC 33.7 G/DL (33.0-37.0); MEAN CORPUSCULAR VOLUME 84.3 FL (81.0-99.0); MEAN PLATELET VOLUME 8.7 FL (7.4-10.4); PLATELET COUNT 258 /CUMM (130-400); RBC DISTRIBUTION WIDTH 14.4 % (11.5-14.5); WHITE BLOOD CELL COUNT 21.7 /CUMM (4.8-10.8)
[2016-06-08 08:27] VITALS: BP 116/60
--- NOTE | 2016-06-08 16:03 | PN- Att Addend ---
Attending MD Review Statement Attending Statement Attending MD Statement: examined this patient, discuss w/resident/PA/HIGHWAY PATROL PILOT, agreed w/resident/PA/HIGHW[employer]IL[employer], reviewed EMR data (avail), discussed w/nursing Attending Assessment/Plan: Patient seen and examined at bedside and agree with the resident's note. Discussed with patient the care plan. Acute asthma exacerbation. Will continue with IV steroids and will get pulmonology consult given her recent diagnosis of cryptogenic organizing pneumonia. Currently her breathing is better. Gastroenteritis with nausea and diarrhea and vomiting. Will send C. difficile to rule out C. difficile colitis. Discussed with patient the care plan in detail.
[2016-06-08 17:12] VITALS: BP 103/62
[2016-06-09 00:02] VITALS: BP 94/50
[2016-06-09 08:08] VITALS: BP 128/60
[2016-06-09 08:08] LABS: ABSOLUTE BASOPHIL COUNT 0.1 /CUMM (0.0-0.2); ABSOLUTE EOSINOPHIL COUNT 0.1 /CUMM (0.0-0.7); ABSOLUTE GRANULOCYTE CT 18.1 /CUMM (1.4-6.5); ABSOLUTE LYMPH COUNT 2.6 /CUMM (1.2-3.4); ABSOLUTE MONOCYTE COUNT 0.9 /CUMM (0.10-0.60); BASOPHIL % 0.2 % (0.0-2.0); EOSINOPHIL % 0.4 % (0-5); GRANULOCYTE % 83.2 % (42.2-75.2); HEMATOCRIT 38.2 % (37-47); MEAN CORPUSCULAR HGB 28.5 PG (27.0-31.0); MEAN CORPUSCULAR HGB CONC 33.8 G/DL (33.0-37.0); MEAN CORPUSCULAR VOLUME 84.4 FL (81.0-99.0); MEAN PLATELET VOLUME 8.9 FL (7.4-10.4); PLATELET COUNT 237 /CUMM (130-400); RBC DISTRIBUTION WIDTH 14.6 % (11.5-14.5); RED BLOOD CELL CT 4.53 /CUMM (4.20-5.40); WHITE BLOOD CELL COUNT 21.7 /CUMM (4.8-10.8)
--- NOTE | 2016-06-09 08:33 | PN- Housestaff ---
Subjective Follow-up For: Asthma exacerbation Cryptogenic pneumonia Chronic pain Subjective: seen and examined patient, complains of lower abdominal pain. Denies fever, chills, shortness of breath, vomitting. Review of Systems Constitutional: Denies: chills, diaphoresis, fever, malaise, weakness, unexplained weight loss. Cardiovascular: Denies: chest pain, edema, orthopena, palpitations, peripheral edema, syncope. Respiratory: Denies: cough, hemoptysis, orthopnea, short of breath, sputum production, stridor, wheezing. Gastrointestinal: Reports: abdominal pain. Denies: diarrhea. Objective Last 24 Hrs of Vital Signs/I&O Vital Signs Date Time Temp Pulse Resp B/P Pulse O2 O2 Flow FiO2 Ox Delivery Rate 06/09 1042 99 Room Air Room Air 06/09 0808 97.9 67 20 128/60 96 Room Air 06/09 0002 98.1 63 20 94/50 93 Room Air 06/08 1935 96 Room Air 06/08 1712 98.1 91 18 103/62 94 06/08 1600 94 Room Air Room Air Intake & Output 06/09 1600 06/09 0800 06/09 0000 Intake Total 500 925 Output Total Balance 500 925 Intake, IV 225 Intake, Oral 500 700 Physical Exam General Appearance: Alert, Oriented X3, Cooperative, No Acute Distress Cardiovascular: Normal S1, Normal S2 Lungs: Clear to Auscultation, Normal Air Movement Abdomen: Normal Bowel Sounds, Soft, pain to palpation of lower abd, no guarding, rebound tenderness noted Extremities: No Edema Current Medications: Current Medications Sig/Nathan Start time Last Medication Dose Route Stop Time Status Admin Acetaminophen 650 MG Q4P PRN 06/07 2014 AC PO Albuterol Sulfate 3 ML BID 06/07 INH 1036 Albuterol Sulfate 3 ML Q4H PRN 06/07 2014 AC INH Budesonide/ 2 PUF BID 06/07 Formoterol Fumarate INH 0841 Heparin Sodium 5,000 UNIT Q8 06/07 (Porcine) SC 0523 Methylprednisolone 40 MG Q8 06/07 IV 0523 Metoclopramide HCl 5 MG AC PRN 06/07 2014 AC PO Omeprazole 20 MG DAILY 06/08 0706/09 PO 0523 Oxycodone HCl 30 MG Q4 HRS NEEDED PRN 06/07 2014 AC 06/09 PO 0840 Sodium Chloride 1,000 ML Q13H 06/07 2145 DC 06/08 IV 0857 Tiotropium [place] 1 PUF DAILY 06/08 1000 AC 06/09 INH 0841 Trazodone HCl 50 MG QPM 06/07 2200 AC 06/08 PO 2108 Last 24 Hrs of Lab/Luke Results Last 24 Hrs of Labs/Mics: Laboratory Tests 06/09/16 0701: CBC w Diff MAN DIFF ORDERED, RBC 4.53, MCV 84.4, MCH 28.5, RDW 14.6 H, MPV 8.9, Gran % 83.2 H, Lymphocytes % 11.8 L, Monocytes % 4.4, Eosinophils % 0.4, Basophils % 0.2, Absolute Granulocytes 18.1 H, Segmented Neutrophils 74, Band Neutrophils 5, Absolute Lymphocytes 2.6, Lymphocytes 13 L, Monocytes 5, Absolute Monocytes 0.9 H, Eosinophils 1, Absolute Eosinophils 0.1, Absolute Basophils 0.1, Metamyelocytes 2 H, Platelet Estimate VERIFIED BY SMEAR, Anisocytosis 1+, PUBS MCHC 33.8 Microbiology 06/08 1731 STOOL: Clostridium difficile Toxin A & B - CAN Cancelled: Cancelled via OE: Duplicate Order Assessment/Plan Assessment: 35-year-old woman with past medical history significant for asthma attack and cryptogenic pneumonia was admitted for asthma exacerbation and gastroenteritis. plan asthma exacerbation * will taper IV Solu-Medrol 40 mg every 12 * Continue pro-air 3 mL every 4 as needed * Continue Symbicort 2 puffs twice a day * Continuous Spiriva 2 puffs twice a day * Off antibiotics * saturating well on RA * TRC [id number] as needed gastroenteritis; * afebrile, wbc 21.7 ( sec to IV steroids) * Full liquid diet;continues to have pain with eating, one episode of diarrhea yester evening * C. difficile negative * Advance diet if tolerated clear liquids * With a chlorpropamide 5 mg every 4 as needed for nausea chronic pain * Continue oxycodone 30 mg every 4 h * Tylenol 650 mg every 4 as needed for moderate moderate pain dvt ppx scheparin full code Problem List: 1. Pneumonia 2. Asthma exacerbation 3. Gastroenteritis Pain Ratin Pain Location: abdomen Pain Goal: Pain 4 or less Pain Plan: current regimen Tomorrow's Labs & Rationales: cbc
[2016-06-09 16:56] VITALS: BP 122/60
--- NOTE | 2016-06-09 18:56 | PN- Att Addend ---
Attending MD Review Statement Attending Statement Attending MD Statement: examined this patient, discuss w/resident/PA/QUALITY ANALYST/TECHNICAL WRITER, agreed w/resident/PA/QUALITY ANALYST/TECHNICAL WRITER, reviewed EMR data (avail) Attending Assessment/Plan: Acute asthma exacerbation. Will continue with IV steroids and will get pulmonology consult given her recent diagnosis of cryptogenic organizing pneumonia. Currently her breathing is better. Will decrease the steroids to 40mg iv q12h today. Gastroenteritis with nausea and diarrhea and vomiting. C diff negative. Diarrhea little better. Pt has undelying IBS with constipation. Could be related to that.
[2016-06-09 23:50] VITALS: BP 124/62
[2016-06-10 08:00] VITALS: BP 118/70
--- NOTE | 2016-06-10 08:08 | PN- Housestaff ---
Subjective Follow-up For: Asthma Assessment/Plan Assessment: 35-year-old woman with past medical history significant for asthma attack and cryptogenic pneumonia was admitted for asthma exacerbation and gastroenteritis. plan asthma exacerbation * will taper IV Solu-Medrol 40 mg every 12 * Continue pro-air 3 mL every 4 as needed * Continue Symbicort 2 puffs twice a day * Continuous Spiriva 2 puffs twice a day * Off antibiotics * saturating well on RA * TRC [id number] as needed gastroenteritis; * afebrile, wbc 21.7 ( sec to IV steroids) * Full liquid diet;continues to have pain with eating, one episode of diarrhea yester evening * C. difficile negative * Advance diet if tolerated clear liquids * With a chlorpropamide 5 mg every 4 as needed for nausea chronic pain * Continue oxycodone 30 mg every 4 h * Tylenol 650 mg every 4 as needed for moderate moderate pain dvt ppx scheparin full code
--- NOTE | 2016-06-10 08:29 | PN- Housestaff ---
JULIA COTA 06/10/16 0827: Subjective Follow-up For: asthma exacerbation Complaints: no complaints Subjective: patient was examine today. Stable and no complaints. She would like to be discharged after seeing Dr. Verdugo. Off O2 and ambulation w/o problem. Review of Systems Constitutional: Denies: chills, diaphoresis, fever, malaise, weakness, unexplained weight loss. EENTM: Denies: blurred vision, double vision, visual changes, eye pain, eye drainage, eye tearing, icterus, ear discharge, ear pain, ear redness, hearing changes, nasal congestion, epistaxis, nasal pain, throat pain, throat swelling, mouth pain, tooth pain. Cardiovascular: Denies: chest pain, edema, orthopena, palpitations, peripheral edema, syncope. Respiratory: Denies: cough, hemoptysis, orthopnea, short of breath, sputum production, stridor, wheezing. Gastrointestinal: Denies: abdominal pain, bloating, constipation, diarrhea, distention, bowel incontinence, melena, nausea, bloody stool, changes in stool, vomiting, steatorrhea. Musculoskeletal: Denies: back pain, gout, joint pain, joint swelling, muscle pain, muscle stiffness, neck pain. Skin: Denies: cysts, change in skin color, change in hair/nails, dryness, erythema, jaundice, lesions, lymphangitis, lumps, moles, rash. Neurological/Psychological: Denies: anxiety, ataxia, cognitive dysfunction, confusion, depressed, dementia, emotional problems, headache, numbness, paresthesia, pre-existing deficit, petit mal seizures, tingling, tremors, tonic-clonic seizures, unable to move lower ext , unable to move upper ext, weakness, other. Objective Last 24 Hrs of Vital Signs/I&O Vital Signs Date Time Temp Pulse Resp B/P Pulse O2 O2 Flow FiO2 Ox Delivery Rate 06/09 2350 97.9 80 20 124/62 96 06/09 1910 93 Room Air 06/09 1656 98.2 72 20 122/60 96 06/09 1042 99 Room Air Room Air Intake & Output 06/10 1600 06/10 0800 06/10 0000 Intake Total 240 880 Output Total Balance 240 880 Intake, Oral 240 880 Physical Exam General Appearance: Alert, Oriented X3, Cooperative, No Acute Distress Skin: No Rashes, No Breakdown, No Significant Lesion HEENT: Atraumatic, PERRLA, EOMI, Mucous Membr. moist/pink Neck: Supple, No JVD, No thryomegaly, +2 Carotid Pulse wo Bruit, No LAD Lymphatic: Axillary nl, Cervical nl Cardiovascular: Normal S1, Normal S2, No Murmurs, Gallops, Rubs Lungs: Clear to Auscultation, Normal Air Movement Abdomen: Normal Bowel Sounds, Soft, No Tenderness, No Hepatospenomegaly, No Masses Neurological: Normal Speech, Strength at 5/5 X4 Ext Extremities: No Clubbing, No Cyanosis, No Edema, Normal Pulses, No Tenderness/ Swelling Pelvic (FEMALE) Appearance Normal, No Cervical Tenderness, No Discharge Current Medications: Current Medications Sig/Nathan Start time Last Medication Dose Route Stop Time Status Admin Acetaminophen 650 MG Q4P PRN 06/07 2014 AC PO Albuterol Sulfate 3 ML BID 06/07 2199 AC 06/09 INH 1909 Albuterol Sulfate 3 ML Q4H PRN 06/07 2014 AC INH Budesonide/ 2 PUF BID 06/07 2199 AC 06/09 Formoterol Fumarate INH 220 Heparin Sodium 5,000 UNIT Q8 06/07 2199 AC 06/09 (Porcine) SC 2207 Methylprednisolone 40 MG Q12 06/09 220 AC 06/09 IV 2207 Methylprednisolone 40 MG Q8 06/07 2200 DC 06/09 IV 0523 Metoclopramide HCl 5 MG AC PRN 06/07 2014 AC PO Omeprazole 20 MG DAILY AC 06/08 0700 AC 06/10 PO 0621 Oxycodone HCl 30 MG Q4 HRS NEEDED PRN 06/07 2014 AC 06/10 PO 0647 Tiotropium [place] 1 PUF DAILY 06/08 1000 AC 06/09 INH 0841 Trazodone HCl 50 MG QPM 06/07 2199 AC 06/09 PO 2207 Assessment/Plan Assessment: 35-year-old woman with past medical history significant for asthma attack and cryptogenic pneumonia was admitted for asthma exacerbation and gastroenteritis. plan asthma exacerbation * Haroon steroids down to po prednisone, 30 mg po prednisone and D/C home * Continue pro-air 3 mL every 4 as needed * Continue Symbicort 2 puffs twice a day * Continuous Spiriva 2 puffs twice a day * Off antibiotics * saturating well on RA * TRC [id number] as needed gastroenteritis; * afebrile, wbc 21.7 ( sec to IV steroids) * Full liquid diet;continues to have pain with eating, one episode of diarrhea yester evening * C. difficile negative * Advance diet if tolerated clear liquids * With a chlorpropamide 5 mg every 4 as needed for nausea chronic pain * Continue oxycodone 30 mg every 4 h * Tylenol 650 mg every 4 as needed for moderate moderate pain dvt ppx scheparin full code Problem List: 1. Gastroenteritis 2. Status asthmaticus 3. Depression 4. Full code status Pain Ratin Pain Location: abdomen lower back Pain Goal: Pain 4 or less Pain Plan: oxycodone Tomorrow's Labs & Rationales: none BASSEM DELEON MD 06/10/16 1210: Attending MD Review Statement Attending Statement Attending MD Statement: examined this patient, discuss w/resident/PA/AQUEDUCT AND RESERVOIR KEEPER, agreed w/resident/PA/AQUEDUCT AND RESERVOIR KEEPER, discussed with family, reviewed EMR data (avail), discussed with nursing, discussed with case mgmt, reviewed images, amended to note Attending Assessment/Plan: Patient seen and examined, feels well. Offers no complaints. She is a 35-year- old male with history significant for cryptogenic pneumonia now admitted with asthma exacerbation. She also has history of chronic pain. She is medically stable for discharge home today on her chronic prednisone as per pulmonology. She will follow-up with her primary care doctor Dr. Ramirez and Dr. Verdugo as an outpatient.
[2016-06-10 09:20] LABS: ABSOLUTE BASOPHIL COUNT 0.1 /CUMM (0.0-0.2); ABSOLUTE EOSINOPHIL COUNT 0.1 /CUMM (0.0-0.7); ABSOLUTE GRANULOCYTE CT 14.2 /CUMM (1.4-6.5); ABSOLUTE MONOCYTE COUNT 0.9 /CUMM (0.10-0.60); BASOPHIL % 0.3 % (0.0-2.0); EOSINOPHIL % 0.5 % (0-5); GRANULOCYTE % 82.2 % (42.2-75.2); HEMATOCRIT 42.1 % (37-47); MEAN CORPUSCULAR HGB 28.5 PG (27.0-31.0); MEAN CORPUSCULAR HGB CONC 33.1 G/DL (33.0-37.0); MEAN CORPUSCULAR VOLUME 85.9 FL (81.0-99.0); MEAN PLATELET VOLUME 9.2 FL (7.4-10.4); PLATELET COUNT 227 /CUMM (130-400); RBC DISTRIBUTION WIDTH 15.1 % (11.5-14.5); WHITE BLOOD CELL COUNT 17.3 /CUMM (4.8-10.8)
--- NOTE | 2016-06-10 10:03 | Patient Discharge Instructions ---
Discharge Instructions General Discharge Information You were seen/treated for: asthma exacerbation Acute Coronary Syndrome Inclusion Criteria At DC or during hospital stay patient has or had the following: ACS DIAGNOSIS No Discharge Core Measures Meds if any: Prescribed or Continued at Discharge Meds if any: NOT Prescribed or Continued at Discharge Congestive Heart Failure Inclusion Criteria At DC or during hospital stay patient has or had the following: CHF DIAGNOSIS No Discharge Core Measures Meds if any: Prescribed or Continued at Discharge Meds if any: NOT Prescribed or Continued at Discharge Cerebrovascular accident Inclusion Criteria At DC or during hospital stay patient has or had the following: CVA/TIA Diagnosis No Discharge Core Measures Meds if any: Prescribed or Continued at Discharge Meds if any: NOT Prescribed or Continued at Discharge Venous thromboembolism Inclusion Criteria VTE Diagnosis No VTE Type NONE VTE Confirmed by (Test) NONE Discharge Core Measures - Per Current guidelines, there needs to be overlap - treatment for the first 5 days of Warfarin therapy. - If discharged on Warfarin prior to 5 days of - overlap therapy, the patient will need to be - assessed for post discharge needs including - *Post discharge parental anticoagulation - *Warfarin and/or parental anticoagulation education - *Follow up date to check INR post discharge At least 5 days overlap therapy as Inpatient No Meds if any: Prescribed or Continued at Discharge Note: Overlap Therapy is Warfarin and Anticoagulant Meds if any: NOT Prescribed or Continued at Discharge
[2016-06-10] MEDS ORDERED: OXYCODONE HCL30 M1 PO (10:07)
--- NOTE | 2016-06-10 12:01 | Cons- Pulmonary ---
General Information and HPI Consulting Request Date of Consult: 06/10/16 Requested By: Dr. 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 Had a miscarriage. Recent admit for asthma exacerbation. Per patient, Dr. Park has no plan for allergy shots. Never saw ENT. Still wheezing. Cough that is mostlly dry, dyspnea on exertion. No sick contacts. Significant allergies, reviewed. Has felt worse recently since stopping steroids. CT chest reviewed. Sig improvement consitent with CASTING MOLDER. Responsive to steroids. Best peak flow 290. Symbicort 2 puffs BID with rinsing of the mouth. Proair for rescue. She does not smoke or use drugs. She has a family history of asthma and CASTING MOLDER per the patient. No sick contacts, no travel history. No n/v/d/c. Allergies/Medications Allergies: Coded Allergies: NO KNOWN ALLERGIES (03/22/15) Home Med List: Albuterol Sulfate (Albuterol Sulfate Hfa) 90 MCG HFA.AER.AD 2 PUFF INH Q4-6 PRN PRN SHORTNESS OF BREATH 90 MCG PER PUFF Budesonide/Formoterol [place] (Symbicort 160-4.5 Mcg Inhaler) 160 MCG/4.5 MCG PUF 2 PUF INH BID ASTHMA Oxycodone HCl 30 MG TABLET 1 TAB PO 4 TIMES/DAY PRN TMJ Prednisone 10 MG TABLET 3 TAB PO DAILY BREATHING PROBLEMS (Reported) Tiotropium [place] (Spiriva) 18 MCG CAP.W.DEV 1 CAP INH DAILY ASTHMA ( Reported) Trazodone HCl 50 MG TABLET 1 TAB PO QPM SLEEP (Reported) Current Medications: Current Medications Sig/Nathan Start time Last Medication Dose Route Stop Time Status Admin Acetaminophen 650 MG Q4P PRN 06/07 2014 DCD PO Albuterol Sulfate 3 ML BID 06/07 2199 DCD 06/09 INH 1909 Albuterol Sulfate 3 ML Q4H PRN 06/07 2014 DCD INH Budesonide/ 2 PUF BID 06/07 2199 DCD 06/10 Formoterol Fumarate INH 1032 Heparin Sodium 5,000 UNIT Q8 06/07 2199 DCD 06/09 (Porcine) SC 2207 Methylprednisolone 40 MG DAILY 06/10 1000 DCD 06/10 IV 1032 Methylprednisolone 40 MG Q12 06/09 2199 DC 06/09 IV 2207 Methylprednisolone 40 MG Q8 06/07 2200 DC 06/09 IV 0523 Metoclopramide HCl 5 MG AC PRN 06/07 2014 DCD PO Omeprazole 20 MG DAILY AC 06/08 0700 DCD 06/10 PO 0621 Oxycodone HCl 30 MG Q4 HRS NEEDED PRN 06/07 2014 DCD 06/10 PO 1032 Tiotropium [place] 1 PUF DAILY 06/08 1000 DCD 06/10 INH 1032 Trazodone HCl 50 MG QPM 06/07 2199 DCD 06/09 PO 2207 Review of Systems Comments 18 point Review of Systems performed. Positive and negative pertinent findings are deliniated in the HPI. Otherwise the ROS is negative. Past History Travel History Traveled to [place] past 21 day No Medical History Blood Transfusion Hx: No Neurological: NONE EENT: TMJ arthritis s/p jaw surgery at [facility] 2010 Cardiovascular: syncope (vasovagal(has had cardio eval)) Respiratory: asthma, bronchitis, pneumonia Gastrointestinal: constipation (IBS), irritable bowel syndrome Hepatic: NONE Renal: NONE Musculoskeletal: fibromyalgia Psychiatric: anxiety Endocrine: NONE Blood Disorders: NONE Cancer(s): NONE GASTROENTEROLOGY PHYSICIAN/Reproductive: NONE Surgical History Surgical History: appendectomy, plantar wart removal jaw surgery for TMJ Family History Relations & Conditions If Any: FATHER (Asthma). FH: diabetes mellitus UNCLE-MATERNAL (BOOP). GRANDMOTHER-MATERNAL (CHF). Relation not specified for: FH: CAD (coronary artery disease) FH: HTN (hypertension) FH: ovarian cancer FH: uterine cancer Psychosocial History Where Do You Live? Home Who Do You Live With? SIGNIFICANT OTHER Services at Home: None Primary Language: Polish Smoking Status: Never Smoked ETOH Use: denies use Illicit Drug Use: denies illicit drug use Functional Ability ADLs Independent: dressing, eating, toileting, bathing. Ambulation: independent IADLs Independent: shopping, housework, finances, food prep, telephone, transportation , medication admin. Exam & Diagnostic Data Last 24 Hrs of Vital Signs/I&O Vital Signs Date Time Temp Pulse Resp B/P Pulse O2 O2 Flow FiO2 Ox Delivery Rate 06/10 0800 Room Air 06/10 0800 97.8 72 18 118/70 98 Room Air 06/09 2350 97.9 80 20 124/62 96 06/09 1910 93 Room Air 06/09 1656 98.2 72 20 122/60 96 Intake & Output 06/10 1600 06/10 0800 06/10 0000 Intake Total 240 880 Output Total Balance 240 880 Intake, Oral 240 880 Physical Exam Other Physical Findings: General - Alert, awake and oriented HEENT - normocephalic, atraumatic Cardiovascular - S1, S2 Lungs - clear lungs Abdomen - soft, bowel sounds positive, no tenderness Extremities - without edema or cyanosis Last 48 Hrs of Labs/Luke: Laboratory Tests 06/10/16 0720: CBC w Diff MAN DIFF ORDERED, RBC 4.90, MCV 85.9, MCH 28.5, RDW 15.1 H, MPV 9.2, Gran % 82.2 H, Lymphocytes % 11.6 L, Monocytes % 5.4, Eosinophils % 0.5, Basophils % 0.3, Absolute Granulocytes 14.2 H, Segmented Neutrophils 75, Band Neutrophils 4, Absolute Lymphocytes 2.0, Lymphocytes 11 L, Monocytes 3, Absolute Monocytes 0.9 H, Absolute Eosinophils 0.1, Absolute Basophils 0.1, Metamyelocytes 3 H, Myelocytes 4 H, Platelet Estimate ADEQUATE, Normocytic RBCs VERIFIED, Normochromic RBCs VERIFIED, PUBS MCHC 33.1 06/09/16 0701: CBC w Diff MAN DIFF ORDERED, RBC 4.53, MCV 84.4, MCH 28.5, RDW 14.6 H, MPV 8.9, Gran % 83.2 H, Lymphocytes % 11.8 L, Monocytes % 4.4, Eosinophils % 0.4, Basophils % 0.2, Absolute Granulocytes 18.1 H, Segmented Neutrophils 74, Band Neutrophils 5, Absolute Lymphocytes 2.6, Lymphocytes 13 L, Monocytes 5, Absolute Monocytes 0.9 H, Eosinophils 1, Absolute Eosinophils 0.1, Absolute Basophils 0.1, Metamyelocytes 2 H, Platelet Estimate VERIFIED BY SMEAR, Anisocytosis 1+, PUBS MCHC 33.8 Assessment/Plan Impression/Plan: Impression 35 year old woman * severe persistent asthma * Cryptogenic organizing pneumonia presumed based on improvement in CAT scan * insomnia Plan * Resume prednisone 30 mg by mouth and will see in the office * Ready for discharge from the pulmonary perspective * DVT prophylaxis at all times Thank you in allowing me to participate in the care of this patient. I will continue to follow along with the patient's progress. Please do not hesitate to call about any questions or issues. Consult Acknowledgment - Thank you for your consult request.
--- NOTE | 2016-06-21 13:21 | Discharge Summary ---
Visit Information Visit Dates Admission Date: 06/07/16 Discharge Date: 06/10/16 Hospital Course Course Attending Physician: BASSEM DELEON MD Primary Care Physician: ELVIN CHAPARRO,THEODORA Mehta Hospital Course: 35-year-old woman with past medical history significant for recurrent asthma attack and cryptogenic pneumonia was admitted for asthma exacerbation. Her initial lab results and imaging; ABG: PH 7.41/PCO2 39/PO2 71/HCO3 24; WBC 17.6 with left shift but no bandemia, platelet count 253; DD: 2303; BEP: Na 143, K 4.3, AG14, BUN 9,Cr 0.8. CTA of the chest was obtained, which was egative for pulmonary embolism showing cryptogenic pneumonia no significant change compared to previous CTs. Chest x-ray: Coarse reticular nodular changes compatible w/ changes in 2014; no acute change. Patient was started on IV solu-medrol and was kept pff-antibiotic, since there was no clear indication/evidence of infection. The next two days of hospital stay highlighted by marked improvement of her condition. On the third day, patient was visited by her clinical applications specialist, Dr. Verdugo. Per clinical applications specialist her IV solu-med was switched to her home-dose of PO prednisone and patient was discharged home, to follow up with Dr. Verdugo's office a an out patient. Allergies: Coded Allergies: NO KNOWN ALLERGIES (03/22/15) Pertinent Lab Results: abdominal Ultra sound: no pathologic finding Disposition Summary Disposition Principal Diagnosis: Asthma exacerbation Additional Diagnosis: Viral gastroenthritis Discharge Disposition: home or self care Discharge Instructions General Discharge Information Code Status: Full Code Patient's Diet: regular diet Patient's Activity: as tolerated Follow-Up Instructions/Appts: folow up w/ your PCP and clinical applications specialist Medications at Discharge Discharge Medications: Continue taking these medications: Albuterol Sulfate (Albuterol Sulfate Hfa) 90 MCG HFA.AER.AD 2 PUFF Inhale through mouth EVERY 4-6 HOURS NEEDED as needed for SHORTNESS OF BREATH Qty = 1 Instructions: 90 MCG PER PUFF Budesonide/Formoterol [place] (Symbicort 160-4.5 Mcg Inhaler) 160 MCG/4.5 MCG PUF 2 Puff Inhale through mouth TWICE DAILY Days = 30 Tiotropium [place] (Spiriva) 18 MCG CAP.W.DEV 1 Capsule Inhale through mouth DAILY Comments: Last Taken: 06/10/16 Time: 10AM Prednisone (Prednisone) 10 MG TABLET 3 Tablet ORAL DAILY Comments: NOT GIVEN IN HOSPITAL Trazodone HCl (Trazodone HCl) 50 MG TABLET 1 Tablet ORAL Every night Qty = 30 Comments: Last Taken: 06/09/16 Time: 10PM Oxycodone HCl (Oxycodone HCl) 30 MG TABLET 1 Tablet ORAL 4 TIMES A DAY as needed for TMJ Qty = 28 Comments: Last Taken: 06/10/16 Time: 10:30AM This prescription has been renewed Copies To: ELVIN CHAPARRO,THEODORA Mehta Attending MD Review Statement Documenting Attending: PANCHO CHAPARRO,BASSEM
== END 2016-06-10 11:26 | DRG 141 ==
LOC: ENPENDDIS → ENRESERVDT → ENRESERVTM → ERH 12:50 → 2NB 19:36 → ERHI 19:36 → 2NB 19:36
PROVIDERS: Internal Medicine; Physician Assistant; Student in an Organized Health Care Education/Training Program; ADMIT Internal Medicine
DX: J45.52 Severe persistent asthma with status asthmaticus (principal); K52.9 Noninfective gastroenteritis and colitis, unspecified; J84.116 Cryptogenic organizing pneumonia; M79.7 Fibromyalgia; F32.9 Major depressive disorder, single episode, unspecified; M26.609 Unspecified temporomandibular joint disorder, unspecified side
CPT/HCPCS: 2NBSP; 36415; 82436; 94644; 96374; 96375; 99291; J1644; J2920; J2930; J3490; J7060

== ENCOUNTER 2016-06-28 15:20 | Inpatient (IN) | payer OTHER ==
[~2016-06-28] VITALS: Ht 157.5 cm; Wt 76.7 kg
[~2016-06-28 15:20] MED LIST changes: +TRAZODONE HCL50 M1 PO
--- NOTE | 2016-06-28 15:27 | NUR ---
35 Y/O FEMALE C/O SOB X 1 WEEK; WORSENING TODAY, NO RELIEF WITH NEB TXS AT HOME (ALBUTEROL X 2, JUST PRIOR TO ARRIVAL). C/O COUGH - NON PRODUCTIVE. PT ABLE TO SPEAK SENTENCES THOUGH APPEARS WINDED AFTER FEW WORDS. SAT 80'S IN TRIAGE TAKEN TO ROOM, RT PAGED.
--- NOTE | 2016-06-28 15:44 | ED DYSPNEA/ASTHMA COMPLAINT ---
History of Present Illness General Chief Complaint: Wheezing/Asthma Stated Complaint: ASTHMA ATTACK Source: patient Exam Limitations: no limitations Allergies Coded Allergies: NO KNOWN ALLERGIES (03/22/15) Reconcile Medications Albuterol Sulfate 2.5 MG/3 ML (0.083 %) VIAL.NEB 1 Vial INH/SIXTO TID CRYPTOGENIC ORGANIZING PNUEMON (Reported) Albuterol Sulfate (Albuterol Sulfate Hfa) 90 MCG HFA.AER.AD 2 PUFF INH Q4-6 PRN PRN SHORTNESS OF BREATH 90 MCG PER PUFF Budesonide/Formoterol Fumara (Symbicort 160-4.5 Mcg Inhaler) 160 MCG/4.5 MCG PUF 2 PUF INH BID ASTHMA Omeprazole Magnesium 20 MG CAPSULE.DR 1 CAP PO DAILY GI (Reported) Oxycodone HCl 30 MG TABLET 1 TAB PO Q4P PRN PAIN (Reported) Prednisone 10 MG TABLET 2 TAB PO DAILY BREATHING PROBLEMS (Reported) Tiotropium [place] (Spiriva) 18 MCG CAP.W.DEV 1 CAP INH DAILY ASTHMA ( Reported) Trazodone HCl 50 MG TABLET 3 TAB PO QPM SLEEP (Reported) Triage Note: 35 Y/O FEMALE C/O SOB X 1 WEEK; WORSENING TODAY, NO RELIEF WITH NEB TXS AT HOME (ALBUTEROL X 2, JUST PRIOR TO ARRIVAL). C/O COUGH - NON PRODUCTIVE. PT ABLE TO SPEAK SENTENCES THOUGH APPEARS WINDED AFTER FEW WORDS. SAT 80'S IN TRIAGE TAKEN TO ROOM, RT PAGED. Triage Nurses Notes Reviewed? yes : No Patient currently breastfeeds: No HPI: This patient is a 35-year-old female with a past medical history including asthma and cryptogenic organizing pneumonia who presented to the emergency department today for evaluation of difficulty breathing. The patient reported that her breathing began today worse on Friday. She reported that due to her diagnosis of cryptogenic organizing pneumonia, she has been on prednisone since March 2016. She reported that whenever they try to wean her off of it, her breathing gets worse. The patient reported that she has been wheezing since Friday. She reported some chest pressure associated with her difficulty breathing. She denied any fevers, chills, headaches, visual changes, jaw pain, arm pain, abdominal pain, nausea, or vomiting. (ANGELA BUTT,ANGELES) Vital Signs & Intake/Output Vital Signs & Intake/Output Vital Signs Date Time Temp Pulse Resp B/P Pulse O2 O2 Flow FiO2 Ox Delivery Rate 06/30 0803 97 Nasal 3.0L Cannula 06/30 0800 95 Nasal 2.0L Cannula 06/30 0759 97.5 85 20 112/80 92 Nasal 4.0L Cannula 06/30 0023 4.0 02 0000 97 Nasal 4.0L Cannula 06/29 2353 97.7 105 20 116/68 94 06/29 2117 Nasal 2.0L Cannula 06/29 1649 95 Nasal 3.0L Cannula 06/29 1523 97.6 81 20 112/70 95 Nasal 4.0L Cannula ED Intake and Output 06/30 0000 06/29 1200 Intake Total 930 200 Output Total Balance 930 200 Intake, IV 30 Intake, Oral 900 200 Past History Travel History Traveled to [place] past 21 day No Medical History Any Pertinent Medical History? see below for history Neurological: NONE EENT: TMJ arthritis s/p jaw surgery at [facility] 2010 Cardiovascular: syncope (vasovagal(has had cardio eval)) Respiratory: asthma, bronchitis, cRYPTOGENIC ORGANIZING PNEUMONIA Gastrointestinal: constipation (IBS), irritable bowel syndrome Hepatic: NONE Renal: NONE Musculoskeletal: fibromyalgia Psychiatric: anxiety Endocrine: NONE Blood Disorders: NONE Cancer(s): NONE TALENT ASSISTANT/Reproductive: NONE History of MRSA: No History of VRE: No History of CDIFF: No Pneumonia Vaccine: 03/23/15 Influenza Vaccine: 01/18/16 Surgical History Surgical History: appendectomy, plantar wart removal jaw surgery for TMJ Psychosocial History Who do you live with Family Services at Home None What is your primary language Bahraini Tobacco Use: Never used Family History Family History, If Any: FATHER (Asthma). FH: diabetes mellitus UNCLE-MATERNAL (BOOP). GRANDMOTHER-MATERNAL (CHF). Relation not specified for: FH: CAD (coronary artery disease) FH: HTN (hypertension) FH: ovarian cancer FH: uterine cancer Hx Contributory? Yes (ANGELES MILLER PA-C) Review of Systems Review of Systems Constitutional: Reports: no symptoms. EENTM: Reports: no symptoms. Respiratory: Reports: see HPI. Cardiovascular: Reports: see HPI. GI: Reports: no symptoms. Genitourinary: Reports: no symptoms. Musculoskeletal: Reports: no symptoms. Skin: Reports: no symptoms. Neurological/Psychological: Reports: no symptoms. All Other Systems: Reviewed and Negative (ANGELA BUTTANGELES) Physical Exam Physical Exam Respiratory: chest non-tender, moderate respiratory distress. No accessory muscle use. Expiratory wheezes heard throughout all lung vargas. Scattered rhonchi. No rales. No stridor or decreased breath sounds Comments: Well-developed well-nourished person in moderate distress HEENT: Normal EENT exam, head normocephalic, moist mucous membranes Pupils equally round and reactive to light. Pharynx normal. No swelling or edema. Neck: Supple, no lymphadenopathy Back: Normal inspection Cardiovascular: Regular rate and rhythm with no murmurs, rubs, or gallops Extremity: Normal equal pulses Neuro: Alert oriented x3, cranial nerves II through XII grossly intact. Skin: No appreciable rash on exposed skin, skin is warm and dry. Psych: Mood and affect is normal Core Measures ACS in differential dx? Yes Severe Sepsis Present: No Septic Shock Present: No (ANGELA BUTT,ANGELES) Progress Differential Diagnosis: asthma, AMI, bronchitis, costochondritis, CHF, COPD, musculoskeletal pain, pericarditis, pulmonary embolism, pneumonia, pneumothorax, unstable angina Diagnostic Imaging: Viewed by Me: Radiology Read, CT Scan. Discussed w/RAD: Radiology Read, CT Scan. Radiology Impression: PATIENT: TERESA RODRIGEZ PRESENT AGE: 35 PATIENT ACCOUNT NO: [id number] : 81 LOCATION: [facility] ORDERING PHYSICIAN: ANGELES MILLER PA-C SERVICE DATE: 06/28/16 EXAM TYPE: CAT - CTA CHEST-PULMONARY EMBOLISM EXAMINATION: CT ANGIOGRAM OF THE CHEST WITH AND WITHOUT CONTRAST (CT PULMONARY ANGIOGRAM FOR PE) CLINICAL INFORMATION: Shortness of breath and elevated d-dimer. COMPARISON: Chest CTA 06/07/2015 per TECHNIQUE: Prior to contrast administration, noncontrast localization images were obtained. Subsequently, multidetector volumetric imaging was performed from the thoracic inlet to below the diaphragms following the administration of 95 mL Optiray 350 intravenous contrast. No contrast reaction reported Sagittal, coronal, and MIP oblique sagittal reformatted images were obtained on the CT workstation, uploaded to PACS, and reviewed. FINDINGS: No filling defects within the central, lobar, or segmental pulmonary arteries to suggest underlying pulmonary embolism. New multifocal areas of crazy paving with patchy groundglass opacities with superimposed interlobular septal thickening within the right and left upper lobes, the right middle lobe and lingula, and the lower lobes bilaterally. More nodular consolidative changes are appreciated within the upper lobes bilaterally. The imaging appearance is similar to the 04/18/[address] with these findings having nearly resolved on the 06/07/[address] and remain suggestive of cryptogenic organizing pneumonia. The thoracic aorta is normal in caliber. The heart is normal in size without evidence of a pericardial effusion. A mildly enlarged subcarinal lymph node is stable. There is no hilar or axillary lymphadenopathy. No significant soft tissue findings within the chest. The partially visualized upper abdomen is unremarkable. No acute osseous abnormalities. IMPRESSION: - No pulmonary embolism. - New multifocal areas of crazy paving with patchy groundglass opacities with superimposed interlobular septal thickening within the right and left upper lobes, the right middle lobe and lingula, and the lower lobes bilaterally. More nodular consolidative changes are appreciated within the upper lobes bilaterally. The imaging appearance is similar to the 04/18/[address] with these findings having nearly resolved on the 06/07/[address] and remain suggestive of cryptogenic organizing pneumonia. DICTATED BY: SARAY HOLLINGSWORTH MD DATE/TIME DICTATED:06/28/161844 MANUFACTURING ENGINEERING INTERN:NABOR DATE/TIME TRANSCRIBED:06/28/161844 CONFIDENTIAL, DO NOT COPY WITHOUT APPROPRIATE AUTHORIZATION. <Electronically signed in Other Vendor System> SIGNED BY: SARAY HOLLINGSWORTH MD 06/28/16 052 CXR Impression: PATIENT: TERESA RODRIGEZ PRESENT AGE : 35 PATIENT ACCOUNT NO: [id number] : 81 LOCATION: [facility] ORDERING PHYSICIAN: ANGELES MILLER PA-C SERVICE DATE: 06/28/16153 EXAM TYPE: RAD - XRY-PORTABLE CHEST XRAY EXAMINATION: XR PORTABLE CHEST CLINICAL INFORMATION: History of cryptogenic organizing pneumonia. COMPARISON: Prior studies including recent chest x-ray and CT scan of 06/07/16. TECHNIQUE: Portable portable AP erect chest. view of the chest was obtained. FINDINGS: No significant abnormality is noted involving the heart, lungs, mediastinum, bony thorax or soft tissues. No focal consolidation or other abnormality is demonstrated. IMPRESSION: Unremarkable examination. DICTATED BY: TERESA RUFFIN MD DATE/TIME DICTATED:06/28/161610 MANUFACTURING ENGINEERING INTERN:NABOR DATE/TIME TRANSCRIBED:1610 CONFIDENTIAL, DO NOT COPY WITHOUT APPROPRIATE AUTHORIZATION. < Electronically signed in Other Vendor System> SIGNED BY: TERESA RUFFIN MD 06/28/161616 Initial ED EKG: normal axis, normal intervals, no ST T wave changes, sinus tachycardia, 97 beats per minute Comments: 06/28/2016 5:05:38 PM: As above patient's bedside for reevaluation. She is still satting at approximately 89% on 2 L of oxygen. Still with expiratory wheezes heard on lung auscultation. D-dimer is elevated. This patient will get a CT angiogram of the chest to rule out PE or any other possible consolidations. The patient reported that Dr. Verdugo has requested that she get a sleep study in the near future to evaluate for obstructive sleep apnea. (ANGELA BUTT,ANGELES) Plan of Care: Orders Procedure Date/time Status CBC WITHOUT DIFFERENTIAL 07/01 599 Active CBC WITHOUT DIFFERENTIAL 06/30 599 Complete BASIC ELECTROLYTES PLUS BUN&CR 06/30 599 Complete THERAPIST ORDERS 06/30 UNK Complete Laboratory Tests 06/30/16 0712: Anion Gap 11, Estimated GFR > 60, BUN/Creatinine Ratio 18.3, CBC w Diff NO MAN DIFF REQ, RBC 4.31, MCV 85.2, MCH 28.4, RDW 14.5, MPV 8.7, Gran % 86.7 H, Lymphocytes % 8.3 L, Monocytes % 3.8, Eosinophils % 0, Basophils % 1.2, Absolute Granulocytes 10.7 H, Absolute Lymphocytes 1.0 L, Absolute Monocytes 0.5, Absolute Eosinophils 0, Absolute Basophils 0.1, PUBS MCHC 33.3 Departure Departure Disposition: STILL A PATIENT Condition: Stable Clinical Impression Primary Impression: Cryptogenic organizing pneumonia Referrals: ELVIN CHAPARRO,THEODORA Mehta (PCP/Family) Departure Forms: Customer Survey General Discharge Information Admission Note Spoke With: MICK MORRISON MD Documentation of Exam: Documentation of any treatments & extenuating circumstances including Concerns Regarding Discharge (functional status, medication knowledge or non-compliance, living conditions, etc.) that warrant an admission rather than observation: [ This patient is a 35 year old female with a history of cryptogenic organizing pneumonia and asthma who presented for SOB. 88% on room air. Cryptogenic organizing pneumonia on CTA. General medicine for oxygen therapy, prednisone, pulmonology consultation, trend labs, follow-up blood cultures, serial nebulizer treatments and close monitoring.] (ANGELES MILLER PA-C) PA/ELECTRICAL CAD DESIGNER Co-Sign Statement Statement: ED Attending supervision documentation- [] I saw and evaluated the patient. I have also reviewed all the pertinent lab results and diagnostic results. I agree with the findings and the plan of care as documented in the PA's/ELECTRICAL CAD DESIGNER's documentation. [x] I have reviewed the ED Record and agree with the PA's/ELECTRICAL CAD DESIGNER's documentation. [] Additions or exceptions (if any) to the PAs/ELECTRICAL CAD DESIGNER's note and plan are summarized below: [] (SARAY ROUSE DO) PA/ELECTRICAL CAD DESIGNER Co-Sign Statement Statement: ED Attending supervision documentation- [] I saw and evaluated the patient. I have also reviewed all the pertinent lab results and diagnostic results. I agree with the findings and the plan of care as documented in the PA's/ELECTRICAL CAD DESIGNER's documentation. [x] I have reviewed the ED Record and agree with the PA's/ELECTRICAL CAD DESIGNER's documentation. [] Additions or exceptions (if any) to the PAs/ELECTRICAL CAD DESIGNER's note and plan are summarized below: [] (ELISSA CHAPARRO,INDIRA Rodgers) Critical Care Note Critical Care Note Critical Care Time: non-applicable (ANGELES MILLER PA-C) suggestive of cryptogenic organizing pneumonia. The thoracic aorta is normal in caliber. The heart is normal in size without evidence of a pericardial effusion. A mildly enlarged subcarinal lymph node is stable. There is no hilar or axillary lymphadenopathy. No significant soft tissue findings within the chest. The partially visualized upper abdomen is unremarkable. No acute osseous abnormalities. IMPRESSION: - No pulmonary embolism. - New multifocal areas of crazy paving with patchy groundglass opacities with superimposed interlobular septal thickening within the right and left upper lobes, the right middle lobe and lingula, and the lower lobes bilaterally. More nodular consolidative changes are appreciated within the upper lobes bilaterally. The imaging appearance is similar to the 04/18/[address] with these findings having nearly resolved on the 06/07/[address] and remain suggestive of cryptogenic organizing pneumonia. DICTATED BY: SARAY HOLLINGSWORTH MD DATE/TIME DICTATED:06/28/161844 MANUFACTURING ENGINEERING INTERN:NABRO DATE/TIME TRANSCRIBED:06/28/161844 CONFIDENTIAL, DO NOT COPY WITHOUT APPROPRIATE AUTHORIZATION. <Electronically signed in Other Vendor System> SIGNED BY: SARAY HOLLINGSWORTH MD 06/28/16 185 CXR Impression: PATIENT: TERESA RODRIGEZ PRESENT AGE : 35 PATIENT ACCOUNT NO: [id number] : 81 LOCATION: [facility] ORDERING PHYSICIAN: ANGELES MILLER PA-C SERVICE DATE: 06/28/16 EXAM TYPE: RAD - XRY-PORTABLE CHEST XRAY EXAMINATION: XR PORTABLE CHEST CLINICAL INFORMATION: History of cryptogenic organizing pneumonia. COMPARISON: Prior studies including recent chest x-ray and CT scan of 06/07/16. TECHNIQUE: Portable portable AP erect chest. view of the chest was obtained. FINDINGS: No significant abnormality is noted involving the heart, lungs, mediastinum, bony thorax or soft tissues. No focal consolidation or other abnormality is demonstrated. IMPRESSION: Unremarkable examination. DICTATED BY: TERESA RUFFIN MD DATE/TIME DICTATED:06/28/161610 MANUFACTURING ENGINEERING INTERN:NABOR DATE/TIME TRANSCRIBED:1610 CONFIDENTIAL, DO NOT COPY WITHOUT APPROPRIATE AUTHORIZATION. < Electronically signed in Other Vendor System> SIGNED BY: TERESA RUFFIN MD 06/28/167 Initial ED EKG: normal axis, normal intervals, no ST T wave changes, sinus tachycardia, 97 beats per minute Comments: 06/28/2016 5:05:38 PM: As above patient's bedside for reevaluation. She is still satting at approximately 89% on 2 L of oxygen. Still with expiratory wheezes heard on lung auscultation. D-dimer is elevated. This patient will get a CT angiogram of the chest to rule out PE or any other possible consolidations. The patient reported that Dr. Verdugo has requested that she get a sleep study in the near future to evaluate for obstructive sleep apnea. (ANGELA BUTT,ANGELES) Departure Departure Disposition: STILL A PATIENT Condition: Stable Clinical Impression Primary Impression: Cryptogenic organizing pneumonia Referrals: THEODORA OCONNOR MD (PCP/Family) Departure Forms: Customer Survey General Discharge Information Admission Note Spoke With: MICK MORRISON MD Documentation of Exam: Documentation of any treatments & extenuating circumstances including Concerns Regarding Discharge (functional status, medication knowledge or non-compliance, living conditions, etc.) that warrant an admission rather than observation: [ This patient is a 35 year old female with a history of cryptogenic organizing pneumonia and asthma who presented for SOB. 88% on room air. Cryptogenic organizing pneumonia on CTA. General medicine for oxygen therapy, prednisone, pulmonology consultation, trend labs, follow-up blood cultures, serial nebulizer treatments and close monitoring.] (ANGELES MILLER PA-C) PA/ELECTRICAL CAD DESIGNER Co-Sign Statement Statement: ED Attending supervision documentation- [] I saw and evaluated the patient. I have also reviewed all the pertinent lab results and diagnostic results. I agree with the findings and the plan of care as documented in the PA's/ELECTRICAL CAD DESIGNER's documentation. [x] I have reviewed the ED Record and agree with the PA's/ELECTRICAL CAD DESIGNER's documentation. [] Additions or exceptions (if any) to the PAs/ELECTRICAL CAD DESIGNER's note and plan are summarized below: [] (SARAY ROUSE DO) PA/ELECTRICAL CAD DESIGNER Co-Sign Statement Statement: ED Attending supervision documentation- [] I saw and evaluated the patient. I have also reviewed all the pertinent lab results and diagnostic results. I agree with the findings and the plan of care as documented in the PA's/ELECTRICAL CAD DESIGNER's documentation. [x] I have reviewed the ED Record and agree with the PA's/ELECTRICAL CAD DESIGNER's documentation. [] Additions or exceptions (if any) to the PAs/ELECTRICAL CAD DESIGNER's note and plan are summarized below: [] (ELISSA CHAPARRO,INDIRA Rodgers) Critical Care Note Critical Care Note Critical Care Time: non-applicable (ANGELES MILLER PA-C)
--- NOTE | 2016-06-28 15:44 | NUR ---
MAYRA FROM RESP THERAPY AT BEDSIDE FOR NEB TREATMENT AND ABG SATS 91% WHILE ON NEB.
[2016-06-28] MEDS ORDERED: OXYCODONE HCL30 M1 PO (15:45)
[2016-06-28] MEDS ORDERED: ALBUTEROL2.5 MG/3 M INH/SOL (15:46)
[2016-06-28] MEDS ORDERED: OMEPRAZOLE MAGN20 M1 PO (15:47)
--- NOTE | 2016-06-28 16:17 | RADIOLOGY REPORT ---
EXAMINATION: XR PORTABLE CHEST CLINICAL INFORMATION: History of cryptogenic organizing pneumonia. COMPARISON: Prior studies including recent chest x-ray and CT scan of 06/07/16. TECHNIQUE: Portable portable AP erect chest. view of the chest was obtained. FINDINGS: No significant abnormality is noted involving the heart, lungs, mediastinum, bony thorax or soft tissues. No focal consolidation or other abnormality is demonstrated. IMPRESSION: Unremarkable examination.
[2016-06-28 16:38] LABS: ABSOLUTE BASOPHIL COUNT 0.1 /CUMM (0.0-0.2); ABSOLUTE EOSINOPHIL COUNT 2.5 /CUMM (0.0-0.7); ABSOLUTE GRANULOCYTE CT 5.6 /CUMM (1.4-6.5); ABSOLUTE LYMPH COUNT 3.1 /CUMM (1.2-3.4); ABSOLUTE MONOCYTE COUNT 0.6 /CUMM (0.10-0.60); BASOPHIL % 0.4 % (0.0-2.0); EOSINOPHIL % 20.8 % (0-5); GRANULOCYTE % 47.6 % (42.2-75.2); HEMATOCRIT 38.8 % (37-47); MEAN CORPUSCULAR HGB 28.3 PG (27.0-31.0); MEAN CORPUSCULAR HGB CONC 33.7 G/DL (33.0-37.0); MEAN CORPUSCULAR VOLUME 84.1 FL (81.0-99.0); MEAN PLATELET VOLUME 7.9 FL (7.4-10.4); PLATELET COUNT 231 /CUMM (130-400); RBC DISTRIBUTION WIDTH 14.1 % (11.5-14.5); RED BLOOD CELL CT 4.61 /CUMM (4.20-5.40); WHITE BLOOD CELL COUNT 11.8 /CUMM (4.8-10.8)
--- NOTE | 2016-06-28 16:51 | NUR ---
IV ACCESS ESTABLISHED, #22 LH IVF N/S INFUSION INITIATED AND PATIENT MEDICATED WTIH SOLUMEDROL PER ORDERS EKG BEING DONE AT PRESENT
--- NOTE | 2016-06-28 18:21 | NUR ---
PT TO CT SCAN AT THIS TIME
--- NOTE | 2016-06-28 18:58 | CT SCAN REPORT ---
EXAMINATION: CT ANGIOGRAM OF THE CHEST WITH AND WITHOUT CONTRAST (CT PULMONARY ANGIOGRAM FOR PE) CLINICAL INFORMATION: Shortness of breath and elevated d-dimer. COMPARISON: Chest CTA 06/07/2015 per TECHNIQUE: Prior to contrast administration, noncontrast localization images were obtained. Subsequently, multidetector volumetric imaging was performed from the thoracic inlet to below the diaphragms following the administration of 95 mL Optiray 350 intravenous contrast. No contrast reaction reported Sagittal, coronal, and MIP oblique sagittal reformatted images were obtained on the CT workstation, uploaded to PACS, and reviewed. FINDINGS: No filling defects within the central, lobar, or segmental pulmonary arteries to suggest underlying pulmonary embolism. New multifocal areas of crazy paving with patchy groundglass opacities with superimposed interlobular septal thickening within the right and left upper lobes, the right middle lobe and lingula, and the lower lobes bilaterally. More nodular consolidative changes are appreciated within the upper lobes bilaterally. The imaging appearance is similar to the 04/18/[address] with these findings having nearly resolved on the 06/07/[address] and remain suggestive of cryptogenic organizing pneumonia. The thoracic aorta is normal in caliber. The heart is normal in size without evidence of a pericardial effusion. A mildly enlarged subcarinal lymph node is stable. There is no hilar or axillary lymphadenopathy. No significant soft tissue findings within the chest. The partially visualized upper abdomen is unremarkable. No acute osseous abnormalities. IMPRESSION: - No pulmonary embolism. - New multifocal areas of crazy paving with patchy groundglass opacities with superimposed interlobular septal thickening within the right and left upper lobes, the right middle lobe and lingula, and the lower lobes bilaterally. More nodular consolidative changes are appreciated within the upper lobes bilaterally. The imaging appearance is similar to the 04/18/[address] with these findings having nearly resolved on the 06/07/[address] and remain suggestive of cryptogenic organizing pneumonia.
--- NOTE | 2016-06-28 19:31 | NUR ---
ASSUMED CARE FROM DEEDEE Alberto RN
--- NOTE | 2016-06-28 20:00 | NUR ---
PT APPEARS TO BE RESTING COMFORTABLY. RESP UNLABORED. PT REPORTS BREATHING IMPROVING. NO APPRENT DISTRESS. WILL CONTINUE TO MONITOR.
--- NOTE | 2016-06-28 20:14 | History & Physical ---
SARAI CHAPARRO,SURENDRA 06/28/16 2013: General Information and HPI MD Statement: I have seen and personally examined TERESA RODRIGEZ and documented this H&P. The patient is a 35 year old F who presented with shortness of breath. Source of Information: patient Exam Limitations: no limitations History of Present Illness: 35 yo F with pmh of recurrent asthma attack and cryptogenic pneumonia presented with worsening shortness of breath since Friday (day 5 today). According to the patient, she was in her usual state of health since her last discharge from [facility] on Jun 10, 2016, when she started having wheezes , cough, and shortness of breath since Friday. The progression was gradual, with productive cough with greyish sputum production. She was having more trouble breathing at night, despite having tried all her inhalers and taking Prednisone 20mg since Friday. Symptoms got worst last night and continued to be the same today which brought her to the emergency department. She admits to palpitations on/off, and sinus congestion. 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 Otherwise, she denies any fever, chills, recent travel, any sick contacts, chest pain, abdomen pain, bowel or bladder habit changes, nausea, vomiting, lethargy, joint pain, malaise. She is allergic to dust, but no recent exposure to unsual amount of dust. Allergies/Medications Allergies: Coded Allergies: NO KNOWN ALLERGIES (03/22/15) Home Med list Albuterol Sulfate 2.5 MG/3 ML (0.083 %) VIAL.NEB 1 Vial INH/SIXTO TID CRYPTOGENIC ORGANIZING PNUEMON (Reported) Albuterol Sulfate (Albuterol Sulfate Hfa) 90 MCG HFA.AER.AD 2 PUFF INH Q4-6 PRN PRN SHORTNESS OF BREATH 90 MCG PER PUFF Budesonide/Formoterol Fumara (Symbicort 160-4.5 Mcg Inhaler) 160 MCG/4.5 MCG PUF 2 PUF INH BID ASTHMA Omeprazole Magnesium 20 MG CAPSULE.DR 1 CAP PO DAILY GI (Reported) Oxycodone HCl 30 MG TABLET 1 TAB PO Q4P PRN PAIN (Reported) Prednisone 10 MG TABLET 2 TAB PO DAILY BREATHING PROBLEMS (Reported) Tiotropium Rodeo (Spiriva) 18 MCG CAP.W.DEV 1 CAP INH DAILY ASTHMA ( Reported) Trazodone HCl 50 MG TABLET 3 TAB PO QPM SLEEP (Reported) Past History Travel History Traveled to [place] past 21 day No Medical History Neurological: NONE EENT: TMJ arthritis s/p jaw surgery at [facility] 2010 Cardiovascular: syncope (vasovagal(has had cardio eval)) Respiratory: asthma, bronchitis, pneumonia, cRYPTOGENIC ORGANIZING Gastrointestinal: constipation (IBS), irritable bowel syndrome Hepatic: NONE Renal: NONE Musculoskeletal: fibromyalgia Psychiatric: anxiety Endocrine: NONE Blood Disorders: NONE Cancer(s): NONE COLOR GRINDER/Reproductive: NONE History of MRSA: No History of VRE: No History of CDIFF: No Influenza Vaccine: 01/18/16 Surgical History Surgical History: appendectomy, plantar wart removal jaw surgery for TMJ Past Family/Social History Family History Relations & Conditions if any FATHER (Asthma). FH: diabetes mellitus UNCLE-MATERNAL (BOOP). GRANDMOTHER-MATERNAL (CHF). Relation not specified for: FH: CAD (coronary artery disease) FH: HTN (hypertension) FH: ovarian cancer FH: uterine cancer Psychosocial History Who Do You Live With? SIGNIFICANT OTHER Services at Home: None Primary Language: Djiboutian Smoking Status: Never Smoked Illicit Drug Use: denies illicit drug use Functional Ability ADLs Independent: dressing, eating, toileting, bathing. Ambulation: independent IADLs Independent: shopping, housework, finances, food prep, telephone, transportation , medication admin. Review of Systems Review of Systems Constitutional: Reports: no symptoms. EENTM: Reports: no symptoms. Cardiovascular: Reports: see HPI, palpitations. Respiratory: Reports: see HPI, cough, short of breath, wheezing. Denies: hemoptysis, sputum production. GI: Reports: no symptoms. Genitourinary: Reports: no symptoms. Musculoskeletal: Reports: no symptoms. Skin: Reports: no symptoms. Neurological/Psychological: Reports: no symptoms. Hematologic/Endocrine: Reports: no symptoms. All Other Systems: Reviewed and Negative Exam & Diagnostic Data Last 24 Hrs of Vital Signs/I&O Vital Signs Date Time Temp Pulse Resp B/P Pulse O2 O2 Flow FiO2 Ox Delivery Rate 06/28 2220 Nasal 4.0L Cannula 06/28 2220 98.0 81 20 100/70 94 06/28 2109 97.7 90 20 133/74 96 Nasal 4.0L Cannula 02/03 1924 94 Nasal 5.0L Cannula 06/28 1907 98.1 83 22 102/58 93 Nasal 4.0L Cannula 06/28 1652 92 Nasal 4.0L Cannula 06/28 1545 88 Nasal 4.0L Cannula 06/28 1524 97.5 118 24 122/83 81 Room Air Intake & Output 06/29 0800 06/29 0000 06/28 1600 Intake Total 0 Output Total Balance 0 Intake, Oral 0 Patient 76.657 kg 72.575 kg Weight Physical Exam General Appearance Alert, Oriented X3, Cooperative, No Acute Distress, has oxygen being delivered via NC Last 24 Hrs of Labs/Luke: Laboratory Tests 06/28/161956: Lactic Acid 1.3 06/28/161609: Lactic Acid 0.6 L 06/28/16 161: Anion Gap 6, Estimated GFR > 60, BUN/Creatinine Ratio 11.4, Glucose 88, Calcium 8.9, Magnesium 1.8, Total Bilirubin 0.8, AST 17, ALT 31, Alkaline Phosphatase 75 , Troponin I < 0.01, Total Protein 6.3, Albumin 3.9, Globulin 2.4, Albumin/ Globulin Ratio 1.6, Total Beta HCG NEGATIVE, D-Dimer 1432 H, CBC w Diff NO MAN DIFF REQ, RBC 4.61, MCV 84.1, MCH 28.3, RDW 14.1, MPV 7.9, Gran % 47.6, Lymphocytes % 26.1, Monocytes % 5.1, Eosinophils % 20.8 H, Basophils % 0.4, Absolute Granulocytes 5.6, Absolute Lymphocytes 3.1, Absolute Monocytes 0.6, Absolute Eosinophils 2.5, Absolute Basophils 0.1, PUBS MCHC 33.7 06/28/16 1558: pH 7.37, pCO2 48 H, pO2 61 L, HCO3 27, ABG O2 Sat (Measured) 91.0 L, P-50 ( Temp Corrected) YES, Carboxyhemoglobin 0.4 L, O2 Concentration % 5L, Temperature 97.5, O2 Delivery Method NC, Phlebotomy Draw Site RIGHT RADIAL Microbiology 06/28 1949 BLOOD: Blood Culture - RECD 06/28 1609 BLOOD: Blood Culture - RECD Diagnostic Data EKG Results Normal sinus rhythm, rate- 97, normal intervals, no ST-T changes CXR Results CXR: Unremarkable examination. DICTATED BY: TERESA RUFFIN MD DATE/TIME DICTATED:06/28/161610 ASBESTOS REMOVAL SUPERVISOR:NABOR DATE/TIME TRANSCRIBED:06/28/161610 CT chest: IMPRESSION: - No pulmonary embolism. - New multifocal areas of crazy paving with patchy groundglass opacities with superimposed interlobular septal thickening within the right and left upper lobes, the right middle lobe and lingula, and the lower lobes bilaterally. More nodular consolidative changes are appreciated within the upper lobes bilaterally. The imaging appearance is similar to the 04/18/[address] with these findings having nearly resolved on the 06/07/[address] and remain suggestive of cryptogenic organizing pneumonia. DICTATED BY: SARAY HOLLINGSWORTH MD DATE/TIME DICTATED:06/28/161844 ASBESTOS REMOVAL SUPERVISOR:NABOR DATE/TIME TRANSCRIBED:06/28/161844 Other Results Physical examnination: General: obese patient in mild resp distress Head: Normocephalic, atraumatic Eyes: Pupils normal in size, regular, reacting to light and accommodation, EOM normal Ears: B/l normal on inspection Nose: Normal on inspection Throat/mouth: Moist mucosa Neck: Supple, full range of motion, no thyromegaly Heart: Regular rate, regular rhythm Lung: B/L WHEEZE PRESENT, no crepts heard Abd: Soft, non-tender, no distention appreciated Back: Normal range of motion Extremities: Normal knee exam bilaterally, no pedal edema, Distal neurovascular intact Neurologic: Alert, oriented x3, Cranial exam grossly intact, Speech is clear and coherent Skin: Warm and dry Psychiatric: Calm, cooperative, coherant Assessment/Plan Assessment: 35 yo F with pmh of recurrent asthma attack and cryptogenic pneumonia presented with worsening shortness of breath since Friday. She presented with acute hypoxia with saturation of 81% on room air, got better to 90% with oxygen at 4 L /m via nasal cannula, tachypneic at 24, tachycardic at 118. She received IV steroid, nebulizations with bronchodilators, normal saline at the emergency department, which improved her clinical condition significantly. Her labs were significant for eosinophils 20.8%, d-dimer 1432, WBC 11.8, otherwise normal CBC and BEP. ABG showed pH 7.37 with Hypertension 48 and significant hypoxia 61 despite oxygen concentration at 5 L/m. CAT scan of the chest ruled out PE but did mention of cryptogenic organizing pneumonia. EKG is in normal sinus rhythm. She is currently being managed in the general medical floor for following issues : #Acute hypoxic hypercarbic respiratory failure secondary to acute asthma exacerbation and flaring up of cryptogenic organizing pneumonia Patient has been having flareups of her symptoms every time her steroids are tapered, which also seems to be the case this time. -Total respiratory care with frequent nebulizations, target saturation level above 90% -IV methylprednisolone with a plan to taper it by oral prednisone. This needs to be discussed with the pulmonary doctor, as she tends to flareup every time. -Sinus tenderness that she has a chronic, so will not actively treat it as an acute sinusitis -Consider Pulmonary consult in the morning or on Friday as patient's condition requires #Continue pain medications for her temporomandibular junction frequent dislocations #Continue her medication trazodone for sleep #DVT prophylaxis with Lovenox #Regular diet #Full CODE STATUS As Ranked By This Provider Problem List: 1. Cryptogenic organizing pneumonia 2. Asthma exacerbation 3. TMJ (temporomandibular joint syndrome) Core Measures/Miscellaneous Acute Coronary Syndrome ACS Diagnosis: No Cerebrovascular Accident CVA/TIA Diagnosis: No Congestive Heart Failure CHF Diagnosis: No Venous Thromboembolism VTE Risk Factors: Obesity VTE Prophylaxis Ordered Inpt: Pharm- Lovenox No [facility] VTE prophylaxis d/t: No contraindications No VTE Pharm Prophylaxis d/t: No contraindications VTE Diagnosis: No VTE Type: NONE VTE Confirmed by (Test): NONE Severe Sepsis Severe Sepsis Present: No Septic Shock Septic Shock Present: No Miscellaneous Documentation Attending Case Discussed With: MICK MORRISON MD Primary Care Physician: THEODORA OCONNOR MD Patient sees these Specialists Cover Remover Dr Verdugo Level of Patient Care: General Medicine MICK MORRISON 06/28/16 8838: Attending Review Statement Attending Statement Attending MD Statement: examined this patient, discuss w/resident/PA/ANNEALING FURNACE OPERATOR, agreed w/resident/PA/ANNEALING FURNACE OPERATOR, discussed with family, reviewed EMR data (avail), reviewed images, amended to note Attending Assessment/Plan: Cc: worsening of SOB PMH: Asthma, cryptogenic organizing pneumonia currently on tapering dose of steroid, Depression, Chronic jaw pain Patient has recurrent hospitalizations with similar complaints since March. She was feeling better for a week and half after her recent discharge on June 10. She started to notice worsening of SOB, wheezing and dry cough since Friday. Her PO prednisone was decreased from 30 mg to 20 mg on Friday. She has been using her rescue inhaler every 1 to 2 hour. Her boyfriend noticed her lips going long during night and she had to wake up for inhalers. No other change that she has noticed, moderate chest tightness and soreness with coughing, no chest pain, no fever, chills, diarrhea, constipation, urinary symptoms, LOC, palpitations. She occasionally uses incentive spirometer at home. Vomiting 2. Her O2 saturation at home today was 78% so she came to ER. Vitals: Afebrile, mild tachycardia 118 at presentation, RR 22-24, BP 102/58, she was saturating 80s in triage, currently 94% on 5 L. On exam: A O 3, mild respiratory distress, anxious, neck supple, no lymphadenopathy, mucosa moist, no pharyngeal congestion. CVS: S1-S2, RRR. RS: Mild wheezing heard bilaterally with prolonged expiration. Abdomen soft, NT, ND, no guarding are rigidity, bowel sounds present. No focal neurological deficit. Labs: WBC 11.8 with eosinophils 20.8%, BMP, LFT unremarkable, d-dimer 1432. ABG 7.37/48/61/27 on 5 L CXR: Unremarkable. CT angiogram chest: No pulmonary embolism. New multifocal areas of crazy paving with patchy groundglass opacities with superimposed interlobular septal thickening within the right and left upper lobes, the right middle lobe and lingula, and the lower lobes bilaterally. More nodular consolidative changes are appreciated within the upper lobes bilaterally. The imaging appearance is similar to the 04/18/[address] with these findings having nearly resolved on the 06/07/[address] and remain suggestive of cryptogenic organizing pneumonia. Assessment and plan #1 acute hypoxic respiratory failure secondary to asthma exacerbation and cryptogenic organizing pneumonia #2 asthma exacerbation: Hypoxia, wheezing even after 2 doses of albuterol inhalation in ER, worsening symptoms over one week. Continue IV methylprednisolone 40 mg every 6 hours, scheduled and when necessary albuterol nebulization, continue oxygen by nasal cannula tapered gradually, PT evaluation in and ambulatory oxygen. #3 CT scan mentions worsening of infiltrates for cryptogenic organizing pneumonia : Continue steroids as mentioned above, nebulization treatment, informed pulmonology patient is known to Dr. Verdugo, patient does not have significant leukocytosis, no fever, no sputum production, no pleuritic chest pain I would hold off antibiotics at this time #4 chronic pain at left jaw continue her home doses of pain medications. #5 depression: Continue her home medications. #6 DVT prophylaxis with Lovenox. FREDO CHAPARRO,ANABELLE 06/29/16 0350: Resident Review Statement Resident Statement: examined this patient, discussed with software engineer intern, agreed with software engineer intern Other Findings: 35 YO F with pmh of crypogenic pna presents to the hosptial with difficulty breathing. She was seen here before with similar complaints. She states that whenever her steroid dose gets tapered she develops increased sob, wheezing and dry cough. Reporting that she recently decreased her prednisone from 30mg to 20mg on Friday. Reports using inhalers as directed without relief. 98.1, 83, 22, 102/58, 94 5LNC Alert and Oriented x 4 cvs s1-s2 no m/r/g resp continous wheezing in all lung vargas abdo soft, nontender, non distended, bs + ext no edema, pulses 2+ wbc 11.8, eosinophils 20.8, d-dimer 1432, BC pending cxr unremarkable cta no pe, patchy ground glass opacities, superimposed interlobular septal thickening w/in rt and left upper lobes 35 YO F with history of crytogenic organizing pna presents with acute hypoxic respiratory failure. She tried to use her inhalers at home to now avail. Reports improvement with steroids and nebulizers in ER. Would continue current treatment with IV steroids, and TRC with nebulizers and have pulmonology evaluate. continue home medications for chronic jaw pain, full code, dvt ppx lovenox
--- NOTE | 2016-06-28 20:43 | NUR ---
Emergency Dept UC Admit Note: To be admitted to [facility] by DR MORRISON with ASTHMA as the diagnosis, to [facility] / ROOM 214-1 location. Nursing Department Supervisor and admitting notified 06/28/16 at 2009
--- NOTE | 2016-06-28 21:49 | NUR ---
PT APPEARS COMFORTABLE. RESP UNLABORED. NO APPARENT DISTRESS
--- NOTE | 2016-06-28 22:00 | NUR ---
PT TRANSPORTED TO FLOOR
[2016-06-28 22:21] VITALS: BP 100/70
--- NOTE | 2016-06-28 23:19 | Admission Certification ---
Admission Certification Certification Statement - As attending physician, I certify that at the time of - admission, based on clinical presentation, severity of - symptoms, need for further diagnostic testing and - therapeutic interventions, and risk of adverse outcomes - without in-hospital treatment, in my clinical assessment, - this patient requires an acute hospital stay for a minimum - of two nights or longer. I have also considered psychsocial - factors such as support system, advanced age, financial - issues, cognitive issues, and failed out-patient treatments, - past re-admission history, safety of patient, and lack of - compliance as applicable. Specific rationale supporting this admission is: Asthma exacerbation , cryptogenic organizing pneumonia, acute hypoxic respiratory failure
--- NOTE | 2016-06-29 07:27 | PN- Housestaff ---
FREDO CHAPARRO,ANABELLE 06/29/16 0704: Subjective Follow-up For: shortness of breath Complaints: short of breath Subjective: Lying comfortably in bed, feels better after recieving treatment Review of Systems Constitutional: Reports: no symptoms. EENTM: Reports: mouth pain. Cardiovascular: Reports: no symptoms. Respiratory: Reports: cough, short of breath, wheezing. Gastrointestinal: Reports: no symptoms. Genitourinary: Reports: no symptoms. Musculoskeletal: Reports: joint pain (TMJ). Skin: Reports: no symptoms. Neurological/Psychological: Reports: no symptoms. Objective Last 24 Hrs of Vital Signs/I&O Vital Signs Date Time Temp Pulse Resp B/P Pulse O2 O2 Flow FiO2 Ox Delivery Rate 06/28 2220 Nasal 4.0L Cannula 06/28 222 98.0 81 20 100/70 94 06/28 2110 97.7 90 20 133/74 96 Nasal 4.0L Cannula 06/28 1924 94 Nasal 5.0L Cannula 06/28 1907 98.1 83 22 102/58 93 Nasal 4.0L Cannula 06/28 1652 92 Nasal 4.0L Cannula 06/28 1545 88 Nasal 4.0L Cannula 06/28 1524 97.5 118 24 122/83 81 Room Air Intake & Output 06/29 0800 06/29 0000 06/28 1600 Intake Total 200 0 Output Total Balance 200 0 Intake, Oral 200 0 Patient 169 lb 160 lb Weight Physical Exam General Appearance: Alert, Oriented X3, Cooperative, Mild Distress HEENT: Atraumatic, PERRLA, EOMI, Mucous Membr. moist/pink Neck: Supple, No JVD Cardiovascular: Regular Rate, Normal S1, Normal S2, No Murmurs Lungs: bilateral wheeze Abdomen: Normal Bowel Sounds, Soft, No Tenderness Neurological: Normal Speech, Strength at 5/5 X4 Ext, Normal Tone, Sensation Intact Extremities: No Edema, Normal Pulses Vascular: Normal Pulses, Pulses Symmetrical Current Medications: Current Medications Sig/Nathan Start time Last Medication Dose Route Stop Time Status Admin Acetaminophen 650 MG Q6P PRN 06/29 0130 AC PO Albuterol Sulfate 3 ML Q6 PRN 06/28 2245 AC INH Albuterol Sulfate 3 ML ONCE ONE 06/28 1630 DC 06/28 INH 06/28 1631 1922 Albuterol Sulfate 3 ML ONCE ONE 06/28 1545 DC 06/28 INH 06/28 1546 1544 Budesonide/ 2 PUF BID 06/29 1000 AC Formoterol Fumarate INH Enoxaparin Sodium 40 MG DAILY 06/29 1000 AC SC Ipratropium [place] 2.5 ML ONCE ONE 06/28 1545 DC 06/28 INH 06/28 1546 1544 Methylprednisolone 40 MG Q8 06/29 0600 AC 06/29 IV 0625 Methylprednisolone 0 .STK-MED ONE 06/28 1648 DC .ROUTE Methylprednisolone 125 MG ONCE ONE 06/28 1545 DC 06/28 IV 06/28 1546 1651 Omeprazole 20 MG DAILY AC 06/29 0700 AC 06/29 PO 0625 Oxycodone HCl 30 MG Q4P PRN 06/28 2245 AC 06/29 PO 0242 Sodium Chloride 1,000 ML BOLUS ONE 06/28 1545 DC 06/28 IV 06/28 1644 1657 Trazodone HCl 150 MG QPM 06/29 2200 AC 06/28 PO 2200 Last 24 Hrs of Lab/Luke Results Last 24 Hrs of Labs/Mics: Laboratory Tests 06/28/16 1957: Lactic Acid 1.3 06/28/16 1610: Lactic Acid 0.6 L 06/28/16 1610: Anion Gap 6, Estimated GFR > 60, BUN/Creatinine Ratio 11.4, Glucose 88, Calcium 8.9, Magnesium 1.8, Total Bilirubin 0.8, AST 17, ALT 31, Alkaline Phosphatase 75 , Troponin I < 0.01, Total Protein 6.3, Albumin 3.9, Globulin 2.4, Albumin/ Globulin Ratio 1.6, Total Beta HCG NEGATIVE, D-Dimer 1432 H, CBC w Diff NO MAN DIFF REQ, RBC 4.61, MCV 84.1, MCH 28.3, RDW 14.1, MPV 7.9, Gran % 47.6, Lymphocytes % 26.1, Monocytes % 5.1, Eosinophils % 20.8 H, Basophils % 0.4, Absolute Granulocytes 5.6, Absolute Lymphocytes 3.1, Absolute Monocytes 0.6, Absolute Eosinophils 2.5, Absolute Basophils 0.1, PUBS MCHC 33.7 06/28/16 1558: pH 7.37, pCO2 48 H, pO2 61 L, HCO3 27, ABG O2 Sat (Measured) 91.0 L, P-50 ( Temp Corrected) YES, Carboxyhemoglobin 0.4 L, O2 Concentration % 5L, Temperature 97.5, O2 Delivery Method NC, Phlebotomy Draw Site RIGHT RADIAL Microbiology 06/28 1949 BLOOD: Blood Culture - RECD 06/28 161 BLOOD: Blood Culture - RECD Orders Radiology Findings: No significant abnormality is noted involving the heart, lungs, mediastinum, bony thorax or soft tissues. No focal consolidation or other abnormality is demonstrated. - No pulmonary embolism. - New multifocal areas of crazy paving with patchy groundglass opacities with superimposed interlobular septal thickening within the right and left upper lobes, the right middle lobe and lingula, and the lower lobes bilaterally. More nodular consolidative changes are appreciated within the upper lobes bilaterally. The imaging appearance is similar to the 04/18/[address] with these findings having nearly resolved on the 06/07/[address] and remain suggestive of cryptogenic organizing pneumonia. Assessment/Plan Assessment: 35 YO Female who developed acute respiratory failure secondary to cryptogenic organizing pneumonia after steroids have been tapered. This has happened to her on at least 2 occasions in the recent past. Asthma exacerbation continue TRC and nebulizers started in ER along with IV soluemdrol 40mg Q8, maintain O2 saturation >92%, if symptoms improve may begin taper. Sees Dr. Verdugo would have him evaluate. Cryptogenic organizing pneumonia continue steroids, nebulizers, will hold off on abx as she has remained afebrile and white count is not signifcantly elevated. Continue to monitor at this time. Depression continue home medications for depression TMJ pain continue home narcotic medications as prescribed, monitoring pain levels. may need to start bowel regimen DVT ppx lovenox Problem List: 1. Asthma exacerbation 2. Cryptogenic organizing pneumonia 3. TMJ (temporomandibular joint syndrome) 4. Depression Pain Ratin Pain Location: TMJ Pain Goal: Pain 4 or less Pain Plan: continue home medication regimen Tomorrow's Labs & Rationales: cbc bep DVT/Prophylaxis: pharmacological Consulting Request: Consulting Specialty: Pulmonary Disease CAROLIN CHAPARRO,BERNICE 06/29/16 1153: Attending Review Statement Attending Statement Attending MD Statement: agreed w/resident/PA/FRENCH PASTRY COOK, reviewed EMR data (avail) Attending Assessment/Plan: Patient was admitted overnight. This morning while signs stable and patient currently afebrile. Her WBC count was 11.8 upon admission. Her CBC today is pending. Her chemistry labs also pending this morning. For her bilateral leg swelling ultrasound Doppler was done which did not show any DVT. Imaging studies from admission were reviewed. CTA from admission did not show any acute embolism. However study did show new multifocal areas of patchy groundglass opacities with septal thickening. Plan * Continue Solu-Medrol * Taper oxygen as tolerated * Continue supportive treatment TRC nebulizer * Obtain pulmonary consult for further recommendation
[2016-06-29 08:00] VITALS: BP 114/80
--- NOTE | 2016-06-29 10:26 | NUR ---
PT OFF THE FLOOR TO U/S TO RULE OUT DVT RO BLE'S. PENDING RETURN TO FLOOR.
--- NOTE | 2016-06-29 11:12 | ULTRASOUND REPORT ---
EXAMINATION: US TRIPLEX LOWER EXTREMITY, BILATERAL CLINICAL INFORMATION: Bilateral lower extremity edema and swelling. COMPARISON: Venous duplex examination dated 01/16/2016. TECHNIQUE: Color-flow triplex imaging with spectral analysis and compression Doppler were performed on the bilateral lower extremities. FINDINGS: Respiratory variation, normal compression and augmented flow are noted throughout the bilateral lower extremities. The visualized common femoral vein, proximal greater saphenous vein, femoral vein, profunda femoral vein, popliteal vein and visualized mid calf venous segments show no evidence of deep venous thrombosis. There is no Lawrence's cyst. IMPRESSION: Normal triplex scan without evidence of deep venous thrombosis involving the bilateral lower extremities.
[2016-06-29 12:13] LABS: ABSOLUTE BASOPHIL COUNT 0 /CUMM (0.0-0.2); ABSOLUTE EOSINOPHIL COUNT 0 /CUMM (0.0-0.7); ABSOLUTE GRANULOCYTE CT 7.9 /CUMM (1.4-6.5); ABSOLUTE LYMPH COUNT 0.9 /CUMM (1.2-3.4); ABSOLUTE MONOCYTE COUNT 0.1 /CUMM (0.10-0.60); BASOPHIL % 0.4 % (0.0-2.0); EOSINOPHIL % 0.1 % (0-5); HEMATOCRIT 38.7 % (37-47); MEAN CORPUSCULAR HGB 28.2 PG (27.0-31.0); MEAN CORPUSCULAR HGB CONC 33.4 G/DL (33.0-37.0); MEAN CORPUSCULAR VOLUME 84.6 FL (81.0-99.0); MEAN PLATELET VOLUME 8.4 FL (7.4-10.4); PLATELET COUNT 241 /CUMM (130-400); RBC DISTRIBUTION WIDTH 14.3 % (11.5-14.5); RED BLOOD CELL CT 4.57 /CUMM (4.20-5.40); WHITE BLOOD CELL COUNT 8.9 /CUMM (4.8-10.8)
[2016-06-29 12:16] LABS: GRANULOCYTE % 88.5 % (42.2-75.2)
--- NOTE | 2016-06-29 14:16 | Cons- Pulmonary ---
General Information and HPI Consulting Request Date of Consult: 06/29/16 Requested By: Med team History of Present Illness: 35 yo F with pmh of recurrent asthma attack and cryptogenic pneumonia presented with worsening shortness of breath since Friday (day 5 today). According to the patient, she was in her usual state of health since her last discharge from [facility] on Jun 10, 2016, when she started having wheezes , cough, and shortness of breath since Friday. The progression was gradual, with productive cough with greyish sputum production. She was having more trouble breathing at night, despite having tried all her inhalers and taking Prednisone 20mg since Friday. Symptoms got worst last night and continued to be the same today which brought her to the emergency department. She admits to palpitations on/off, and sinus congestion. 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 Otherwise, she denies any fever, chills, recent travel, any sick contacts, chest pain, abdomen pain, bowel or bladder habit changes, nausea, vomiting, lethargy, joint pain, malaise. She is allergic to dust, but no recent exposure to unsual amount of dust. Allergies/Medications Allergies: Coded Allergies: NO KNOWN ALLERGIES (03/22/15) Home Med List: Albuterol Sulfate 2.5 MG/3 ML (0.083 %) VIAL.NEB 1 Vial INH/SIXTO TID CRYPTOGENIC ORGANIZING PNUEMON (Reported) Albuterol Sulfate (Albuterol Sulfate Hfa) 90 MCG HFA.AER.AD 2 PUFF INH Q4-6 PRN PRN SHORTNESS OF BREATH 90 MCG PER PUFF Budesonide/Formoterol Fum[place] (Symbicort 160-4.5 Mcg Inhaler) 160 MCG/4.5 MCG PUF 2 PUF INH BID ASTHMA Omeprazole Magnesium 20 MG CAPSULE.DR 1 CAP PO DAILY GI (Reported) Oxycodone HCl 30 MG TABLET 1 TAB PO Q4P PRN PAIN (Reported) Prednisone 10 MG TABLET 2 TAB PO DAILY BREATHING PROBLEMS (Reported) Tiotropium [place] (Spiriva) 18 MCG CAP.W.DEV 1 CAP INH DAILY ASTHMA ( Reported) Trazodone HCl 50 MG TABLET 3 TAB PO QPM SLEEP (Reported) Review of Systems Review of Systems Constitutional: Reports: see HPI. Comments Review of Systems Review of Systems Constitutional: Reports: no symptoms. EENTM: Reports: no symptoms. Cardiovascular: Reports: see HPI, palpitations. Respiratory: Reports: see HPI, cough, short of breath, wheezing. Denies: hemoptysis, sputum production. GI: Reports: no symptoms. Genitourinary: Reports: no symptoms. Musculoskeletal: Reports: no symptoms. Skin: Reports: no symptoms. Neurological/Psychological: Reports: no symptoms. Hematologic/Endocrine: Reports: no symptoms. All Other Systems: Reviewed and Negative Past History Travel History Traveled to [place] past 21 day No Medical History Neurological: NONE EENT: TMJ arthritis s/p jaw surgery at [facility] 2010 Cardiovascular: syncope (vasovagal(has had cardio eval)) Respiratory: asthma, bronchitis, pneumonia, cRYPTOGENIC ORGANIZING Gastrointestinal: constipation (IBS), irritable bowel syndrome Hepatic: NONE Renal: NONE Musculoskeletal: fibromyalgia Psychiatric: anxiety Endocrine: NONE Blood Disorders: NONE Cancer(s): NONE SHAREPOINT MANAGER/Reproductive: NONE Surgical History Surgical History: appendectomy, plantar wart removal jaw surgery for TMJ Family History Relations & Conditions If Any: FATHER (Asthma). FH: diabetes mellitus UNCLE-MATERNAL (BOOP). GRANDMOTHER-MATERNAL (CHF). Relation not specified for: FH: CAD (coronary artery disease) FH: HTN (hypertension) FH: ovarian cancer FH: uterine cancer Psychosocial History Where Do You Live? Home Who Do You Live With? SIGNIFICANT OTHER Services at Home: None Primary Language: Omani Smoking Status: Never Smoked Illicit Drug Use: denies illicit drug use Functional Ability ADLs Independent: dressing, eating, toileting, bathing. Ambulation: independent IADLs Independent: shopping, housework, finances, food prep, telephone, transportation , medication admin. Exam & Diagnostic Data Last 24 Hrs of Vital Signs/I&O Vital Signs Date Time Temp Pulse Resp B/P Pulse O2 O2 Flow FiO2 Ox Delivery Rate 06/29 1019 Nasal 4.0L Cannula 06/29 821 93 Nasal 4.0L Cannula 06/29 08 97 Nasal 4.0L Cannula 06/29 08 97.4 79 20 114/80 95 Room Air 06/28 2220 Nasal 4.0L Cannula 06/28 2220 98.0 81 20 100/70 94 06/280 97.7 90 20 133/74 96 Nasal 4.0L Cannula 06/28 1924 94 Nasal 5.0L Cannula 06/28 1907 98.1 83 22 102/58 93 Nasal 4.0L Cannula 06/28 1652 92 Nasal 4.0L Cannula 06/28 1545 88 Nasal 4.0L Cannula 06/28 1524 97.5 118 24 122/83 81 Room Air Intake & Output 06/29 1600 06/29 0800 02 0000 Intake Total 200 0 Output Total Balance 200 0 Intake, Oral 200 0 Patient 169 lb Weight Last 48 Hrs of Labs/Luke: Laboratory Tests 06/29/16 1125: Anion Gap 10, Estimated GFR > 60, BUN/Creatinine Ratio 11.4, CBC w Diff MAN DIFF ORDERED, RBC 4.57, MCV 84.6, MCH 28.2, RDW 14.3, MPV 8.4, Gran % 88.5 H, Lymphocytes % 9.7 L, Monocytes % 1.3 L, Eosinophils % 0.1, Basophils % 0.4, Absolute Granulocytes 7.9 H, Absolute Lymphocytes 0.9 L, Absolute Monocytes 0.1 L, Absolute Eosinophils 0, Absolute Basophils 0, Platelet Estimate VERIFIED BY SMEAR, Normocytic RBCs VERIFIED, Normochromic RBCs VERIFIED, PUBS MCHC 33.4 06/28/16 1957: Lactic Acid 1.3 06/28/16 1610: Lactic Acid 0.6 L 06/28/16 1610: Anion Gap 6, Estimated GFR > 60, BUN/Creatinine Ratio 11.4, Glucose 88, Calcium 8.9, Magnesium 1.8, Total Bilirubin 0.8, AST 17, ALT 31, Alkaline Phosphatase 75 , Troponin I < 0.01, Total Protein 6.3, Albumin 3.9, Globulin 2.4, Albumin/ Globulin Ratio 1.6, Total Beta HCG NEGATIVE, D-Dimer 1432 H, CBC w Diff NO MAN DIFF REQ, RBC 4.61, MCV 84.1, MCH 28.3, RDW 14.1, MPV 7.9, Gran % 47.6, Lymphocytes % 26.1, Monocytes % 5.1, Eosinophils % 20.8 H, Basophils % 0.4, Absolute Granulocytes 5.6, Absolute Lymphocytes 3.1, Absolute Monocytes 0.6, Absolute Eosinophils 2.5, Absolute Basophils 0.1, PUBS MCHC 33.7 06/28/16 1558: pH 7.37, pCO2 48 H, pO2 61 L, HCO3 27, ABG O2 Sat (Measured) 91.0 L, P-50 ( Temp Corrected) YES, Carboxyhemoglobin 0.4 L, O2 Concentration % 5L, Temperature 97.5, O2 Delivery Method NC, Phlebotomy Draw Site RIGHT RADIAL Assessment/Plan Impression/Plan: 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 - New multifocal areas of crazy paving with patchy groundglass opacities with superimposed interlobular septal thickening within the right and left upper lobes, the right middle lobe and lingula, and the lower lobes bilaterally. More nodular consolidative changes are appreciated within the upper lobes bilaterally. The imaging appearance is similar to the 04/18/[address] with these findings having nearly resolved on the 06/07/[address] and remain suggestive of cryptogenic organizing pneumonia. General: obese patient in mild resp distress Head: Normocephalic, atraumatic Eyes: Pupils normal in size, regular, reacting to light and accommodation, EOM normal Ears: B/l normal on inspection Nose: Normal on inspection Throat/mouth: Moist mucosa Neck: Supple, full range of motion, no thyromegaly Heart: Regular rate, regular rhythm Lung: B/L WHEEZE PRESENT, no crepts heard Abd: Soft, non-tender, no distention appreciated Back: Normal range of motion Extremities: Normal knee exam bilaterally, no pedal edema, Distal neurovascular intact Neurologic: Alert, oriented x3, Cranial exam grossly intact, Speech is clear and coherent Skin: Warm and dry Psychiatric: Calm, cooperative, coherant 35 year old woman * severe persistent asthma, with ongoing wheezing * Cryptogenic organizing pneumonia presumed based on improvement in CAT scan by steroid rx * insomnia REC cont steroids Nebs May need olb will follow Full work up per Dr saldaña Consult Acknowledgment - Thank you for your consult request.
[2016-06-29 15:23] VITALS: BP 112/70
[2016-06-29 23:53] VITALS: BP 116/68
--- NOTE | 2016-06-30 00:47 | NUR ---
PT TEARY EYED, COMPLAINING OF PAIN TO RIGHT JAW. "I FELT A PIECE OF BONE CHIP OFF. IT HAPPENS ALL THE TIME". DR. HATHAWAY NOTIFIED, OK TO GIVE OXYCODONE AT THIS TIME (NOT DUE FOR ONE HOUR). GIVEN WITH TYLENOL WITH GOOD EFFECT
[2016-06-30 07:59] VITALS: BP 112/80
--- NOTE | 2016-06-30 09:11 | PN- Housestaff ---
CHAYA LUNA 06/30/16 0910: Subjective Follow-up For: Asthma exacerbation Cryptogenic organizing pneumonia Subjective: Have seen and examined the patient. Patient is feeling better. Still complains of cough. Vital signs were stable. No fevers. Review of Systems Constitutional: Reports: see HPI. Objective Last 24 Hrs of Vital Signs/I&O Vital Signs Date Time Temp Pulse Resp B/P Pulse O2 O2 Flow FiO2 Ox Delivery Rate 06/30 0803 97 Nasal 3.0L Cannula 06/30 0800 95 Nasal 2.0L Cannula 06/30 0759 97.5 85 20 112/80 92 Nasal 4.0L Cannula 06/30 0023 4.0 06/30 0000 97 Nasal 4.0L Cannula 06/29 2353 97.7 105 20 116/68 94 06/29 2117 Nasal 2.0L Cannula 06/29 1649 95 Nasal 3.0L Cannula 06/29 1523 97.6 81 20 112/70 95 Nasal 4.0L Cannula Intake & Output 06/30 1600 06/30 0800 06/30 0000 Intake Total 100 500 Output Total Balance 100 500 Intake, Oral 100 500 Physical Exam General Appearance: Alert, Oriented X3, Cooperative Other Physical Findings: Skin No Rashes, No Breakdown, No Significant Lesion HEENT Atraumatic, PERRLA, EOMI Neck Supple, No JVD, No thryomegaly Lymphatic Cervical nl Cardiovascular Regular Rate, Normal S1, Normal S2 Lungs clear to auscultation, Normal Air Movement Abdomen Normal Bowel Sounds, Soft, No Tenderness, No Hepatospenomegaly, No Masses Neurological Normal Gait, Normal Speech, Strength at 5/5 X4 Ext, Sensation Intact Extremities No Clubbing, No Cyanosis, No Edema,Normal Pulses Current Medications: Current Medications Sig/Nathan Start time Last Medication Dose Route Stop Time Status Admin Acetaminophen 650 MG .STK-MED ONE 06/30 0020 DC PO 06/30 0021 Acetaminophen 650 MG Q6P PRN 06/29 0130 AC 06/30 PO 1052 Albuterol Sulfate 3 ML EVERY 4 HRS/AWAKE 06/29 0800 AC 06/30 INH 0802 Budesonide/ 2 PUF BID 06/29 1000 AC 06/30 Formoterol Fumarate INH 1052 Enoxaparin Sodium 40 MG DAILY 06/29 1000 AC 06/30 SC 0758 Methylprednisolone 40 MG Q8 06/29 0600 AC 06/30 IV 0647 Omeprazole 20 MG DAILY AC 06/29 0700 AC 06/30 PO 0647 Oxycodone HCl 30 MG Q4P PRN 06/28 2245 AC 06/30 PO 1052 Tiotropium [place] 1 PUF DAILY 06/29 1000 AC 06/30 INH 1053 Trazodone HCl 150 MG QPM 06/29 2200 AC 06/29 PO 2105 Last 24 Hrs of Lab/Luke Results Last 24 Hrs of Labs/Mics: Laboratory Tests 06/30/16 0712: Anion Gap 11, Estimated GFR > 60, BUN/Creatinine Ratio 18.3, CBC w Diff NO MAN DIFF REQ, RBC 4.31, MCV 85.2, MCH 28.4, RDW 14.5, MPV 8.7, Gran % 86.7 H, Lymphocytes % 8.3 L, Monocytes % 3.8, Eosinophils % 0, Basophils % 1.2, Absolute Granulocytes 10.7 H, Absolute Lymphocytes 1.0 L, Absolute Monocytes 0.5, Absolute Eosinophils 0, Absolute Basophils 0.1, PUBS MCHC 33.3 06/29/16 1125: Anion Gap 10, Estimated GFR > 60, BUN/Creatinine Ratio 11.4, CBC w Diff MAN DIFF ORDERED, RBC 4.57, MCV 84.6, MCH 28.2, RDW 14.3, MPV 8.4, Gran % 88.5 H, Lymphocytes % 9.7 L, Monocytes % 1.3 L, Eosinophils % 0.1, Basophils % 0.4, Absolute Granulocytes 7.9 H, Absolute Lymphocytes 0.9 L, Absolute Monocytes 0.1 L, Absolute Eosinophils 0, Absolute Basophils 0, Platelet Estimate VERIFIED BY SMEAR, Normocytic RBCs VERIFIED, Normochromic RBCs VERIFIED, PUBS MCHC 33.4 Assessment/Plan Assessment: 35 YO Female who developed acute respiratory failure secondary to cryptogenic organizing pneumonia after steroids have been tapered. This has happened to her on at least 2 occasions in the recent past. #Asthma exacerbation -continue TRC and nebulizers - IV soluemdrol 40mg Q8, -maintain O2 saturation >92%, -We will follow director sports recommendation #Cryptogenic organizing pneumonia -continue steroids, nebulizers, -will hold off on abx as she has remained afebrile and white count is not signifcantly elevated. #Depression -continue home medications for depression #TMJ pain -continue home narcotic medications as prescribed, -monitoring pain levels. DVT prophylaxis is Lovenox, full code, regular diet Problem List: 1. Asthma exacerbation Pain Ratin Pain Location: no pain Pain Goal: Remain pain free Pain Plan: same Tomorrow's Labs & Rationales: CBC Consulting Request: Consulting Specialty: Pulmonary Disease CAROLIN CHAPARRO,BERNICE 06/30/16 1336: Attending MD Review Statement Attending Statement Attending MD Statement: examined this patient, discuss w/resident/PA/HYDROGEN TREATER, agreed w/resident/PA/HYDROGEN TREATER, reviewed EMR data (avail) Attending Assessment/Plan: Patient was admitted overnight. This morning while signs stable and patient currently afebrile. She feels slightly better compared to yesterday. She continues to have difficulty breathing and dyspnea on exertion. She remains on oxygen at 3 L. Chest exam shows bilateral scattered crepitation. Abdomen soft nontender. Neurological exam is within normal limits. WBC count is 12.3 and chemistry labs are within normal limits. Blood cultures from admission are negative so far. Ultrasound leg done yesterday was negative for DVT Assessment * Acute hypoxic respiratory failure * History of cryptogenic organizing pneumonia * History of depression * Chronic pain syndrome Plan * Continue Solu-Medrol * Taper oxygen as tolerated * Continue supportive treatment TRC nebulizer * Follow pulmonary recommendations
[2016-06-30 09:30] LABS: ABSOLUTE BASOPHIL COUNT 0.1 /CUMM (0.0-0.2); ABSOLUTE EOSINOPHIL COUNT 0 /CUMM (0.0-0.7); ABSOLUTE GRANULOCYTE CT 10.7 /CUMM (1.4-6.5); ABSOLUTE MONOCYTE COUNT 0.5 /CUMM (0.10-0.60); BASOPHIL % 1.2 % (0.0-2.0); EOSINOPHIL % 0 % (0-5); GRANULOCYTE % 86.7 % (42.2-75.2); HEMATOCRIT 36.7 % (37-47); MEAN CORPUSCULAR HGB 28.4 PG (27.0-31.0); MEAN CORPUSCULAR HGB CONC 33.3 G/DL (33.0-37.0); MEAN CORPUSCULAR VOLUME 85.2 FL (81.0-99.0); MEAN PLATELET VOLUME 8.7 FL (7.4-10.4); PLATELET COUNT 249 /CUMM (130-400); RBC DISTRIBUTION WIDTH 14.5 % (11.5-14.5); RED BLOOD CELL CT 4.31 /CUMM (4.20-5.40)
[2016-06-30 10:15] LABS: WHITE BLOOD CELL COUNT 12.3 /CUMM (4.8-10.8)
--- NOTE | 2016-06-30 11:52 | PN- Pulmonary ---
Subjective HPI/Critical Care Issues: Have seen and examined the patient. Patient is feeling better. Still complains of cough. Vital signs were stable. No fevers. Review of Systems Constitutional: Reports: see HPI. Objective Current Medications: Current Medications Sig/Nathan Start time Last Medication Dose Route Stop Time Status Admin Acetaminophen 650 MG .STK-MED ONE 06/30 0020 DC PO 06/30 0021 Acetaminophen 650 MG Q6P PRN 06/29 0130 AC 06/30 PO 1052 Albuterol Sulfate 3 ML EVERY 4 HRS/AWAKE 06/29 0800 AC 06/30 INH 1149 Budesonide/ 2 PUF BID 06/29 1000 AC 06/30 Formoterol Fumarate INH 1052 Enoxaparin Sodium 40 MG DAILY 06/29 1000 AC 06/30 SC 0758 Methylprednisolone 40 MG Q8 06/29 0600 AC 06/30 IV 0647 Omeprazole 20 MG DAILY AC 06/29 0700 AC 06/30 PO 0647 Oxycodone HCl 30 MG Q4P PRN 06/28 2245 AC 06/30 PO 1052 Tiotropium [place] 1 PUF DAILY 06/29 1000 AC 06/30 INH 1053 Trazodone HCl 150 MG QPM 06/29 2200 AC 06/29 PO 2105 Vital Signs & I&O Last 24 Hrs of Vitals and I&O: Vital Signs Date Time Temp Pulse Resp B/P Pulse O2 O2 Flow FiO2 Ox Delivery Rate 06/30 0803 97 Nasal 3.0L Cannula 06/30 0800 95 Nasal 2.0L Cannula 06/30 0759 97.5 85 20 112/80 92 Nasal 4.0L Cannula 06/30 0023 4.0 / 0000 97 Nasal 4.0L Cannula 06/29 2353 97.7 105 20 116/68 94 / 2117 Nasal 2.0L Cannula 06/29 1649 95 Nasal 3.0L Cannula 06/29 1523 97.6 81 20 112/70 95 Nasal 4.0L Cannula Intake & Output 06/30 1600 / 0800 02/ 0000 Intake Total 100 500 Output Total Balance 100 500 Intake, Oral 100 500 Impression/Plan Impression/Plan Impression/Plan: 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 - New multifocal areas of crazy paving with patchy groundglass opacities with superimposed interlobular septal thickening within the right and left upper lobes, the right middle lobe and lingula, and the lower lobes bilaterally. More nodular consolidative changes are appreciated within the upper lobes bilaterally. The imaging appearance is similar to the 04/18/[address] with these findings having nearly resolved on the 06/07/[address] and remain suggestive of cryptogenic organizing pneumonia. General: obese patient in mild resp distress Head: Normocephalic, atraumatic Eyes: Pupils normal in size, regular, reacting to light and accommodation, EOM normal Ears: B/l normal on inspection Nose: Normal on inspection Throat/mouth: Moist mucosa Neck: Supple, full range of motion, no thyromegaly Heart: Regular rate, regular rhythm Lung: B/L WHEEZE PRESENT, no crepts heard Abd: Soft, non-tender, no distention appreciated Back: Normal range of motion Extremities: Normal knee exam bilaterally, no pedal edema, Distal neurovascular intact Neurologic: Alert, oriented x3, Cranial exam grossly intact, Speech is clear and coherent Skin: Warm and dry Psychiatric: Calm, cooperative, coherant IMPRESSION 35 year old woman * severe persistent asthma, with ongoing wheezing * Cryptogenic organizing pneumonia presumed based on improvement in CAT scan by steroid rx * insomnia better REC cont steroids seems to be responding Nebs atc May need olb will follow Full work up per Dr saldaña
[2016-06-30 15:49] VITALS: BP 122/78
[2016-06-30 23:55] VITALS: BP 105/56
--- NOTE | 2016-07-01 06:48 | PN- Housestaff ---
See Addendum Subjective Follow-up For: Asthma exacerbation Cryptogenic organizing pneumonia Subjective: Patient seen and examined at bedside this AM. She reports her respiratory status is much improved and she is wheezing noticably less today. She is requesting discharge soon and is amenable to discharge tomorrow. Review of Systems Constitutional: Denies: chills, fever, malaise. EENTM: Denies: blurred vision, visual changes, hearing changes. Cardiovascular: Denies: chest pain, palpitations. Respiratory: Denies: cough, short of breath, wheezing. Gastrointestinal: Denies: bloating. Genitourinary: Denies: dysuria. Musculoskeletal: Denies: back pain. Skin: Denies: change in skin color, change in hair/nails. Neurological/Psychological: Denies: confusion. Hematologic/Endocrine: Denies: bruising, bleeding. Objective Last 24 Hrs of Vital Signs/I&O Vital Signs Date Time Temp Pulse Resp B/P Pulse O2 O2 Flow FiO2 Ox Delivery Rate 07/01 0906 97.7 89 20 110/64 94 Room Air 07/01 0741 96 Room Air 100% 07/01 0000 96 Room Air 06/30 2355 97.6 80 20 105/56 96 Room Air 06/30 2136 94 Room Air 06/30 1705 92 Room Air 06/30 1549 97.7 79 18 122/78 96 Nasal 2.0L Cannula Intake & Output 07/01 1600 / 0800 02/ 0000 Intake Total 510 480 Output Total Balance 510 480 Intake, IV 30 Intake, Oral 480 480 Physical Exam General Appearance: Alert, Oriented X3, Cooperative, No Acute Distress Skin: No Significant Lesion HEENT: Atraumatic, Mucous Membr. moist/pink Neck: Supple, No JVD Lymphatic: Cervical nl Cardiovascular: Regular Rate, Normal S1, Normal S2, No Murmurs Lungs: Normal Air Movement, Rare rhonchi Abdomen: Normal Bowel Sounds, Soft, No Tenderness Neurological: Normal Gait, Normal Speech, Normal Tone Extremities: No Clubbing, No Cyanosis, No Edema Vascular: Pulses Symmetrical Current Medications: Current Medications Sig/Nathan Start time Last Medication Dose Route Stop Time Status Admin Acetaminophen 650 MG .STK-MED ONE 07/01 551 DC PO 07/01 552 Acetaminophen 650 MG .STK-MED ONE 06/30 1954 DC PO 02/05 1956 Acetaminophen 650 MG Q6P PRN 06/29 0130 AC 07/01 PO 0555 Albuterol Sulfate 3 ML EVERY 4 HRS/AWAKE 06/29 0800 AC 07/01 INH 1235 Budesonide/ 2 PUF BID 06/29 1000 AC 07/01 Formoterol Fumarate INH 1027 Enoxaparin Sodium 40 MG DAILY 06/29 1000 AC 07/01 SC 0811 Methylprednisolone 40 MG Q12 07/01 2200 AC IV 07/02 0000 Methylprednisolone 40 MG Q8 06/29 0600 DC 07/01 IV 0553 Omeprazole 20 MG DAILY AC 06/29 0700 AC 07/01 PO 0552 Ondansetron HCl 4 MG Q12P PRN 06/30 1815 AC IV Oxycodone HCl 30 MG Q4P PRN 06/28 2245 AC 07/01 PO 1221 Prednisone 60 MG DAILY 07/02 1000 AC PO Tiotropium [place] 1 PUF DAILY 06/29 1000 AC 07/01 INH 1026 Trazodone HCl 150 MG QPM 06/29 2200 AC 06/30 PO 2116 Last 24 Hrs of Lab/Luke Results Last 24 Hrs of Labs/Mics: Laboratory Tests 07/01/16712: CBC w Diff NO MAN DIFF REQ, RBC 4.31, MCV 85.9, MCH 28.3, RDW 14.7 H, MPV 8.9, Gran % 88.8 H, Lymphocytes % 8.1 L, Monocytes % 2.9, Eosinophils % 0.1, Basophils % 0.1, Absolute Granulocytes 11.7 H, Absolute Lymphocytes 1.1 L, Absolute Monocytes 0.4, Absolute Eosinophils 0, Absolute Basophils 0, PUBS MCHC 33.0 Orders Radiology Findings: US LE: IMPRESSION: Normal triplex scan without evidence of deep venous thrombosis involving the bilateral lower extremities. Miscellaneous Findings: Chest CTA: IMPRESSION: - No pulmonary embolism. - New multifocal areas of crazy paving with patchy groundglass opacities with superimposed interlobular septal thickening within the right and left upper lobes, the right middle lobe and lingula, and the lower lobes bilaterally. More nodular consolidative changes are appreciated within the upper lobes bilaterally. The imaging appearance is similar to the 04/18/[address] with these findings having nearly resolved on the 06/07/[address] and remain suggestive of cryptogenic organizing pneumonia. Assessment/Plan Assessment: 35 YO Female who developed acute respiratory failure secondary to cryptogenic organizing pneumonia after steroids have been tapered. This has happened to her on at least 2 occasions in the recent past. The following is the assessment/plan: #Asthma exacerbation in the setting of severe persistent asthma -continue TRC and nebulizers - IV soluemdrol 40mg Q12 -Will switch to PO prednisone 60 mg tomorrow and taper as per pulm instructions -Continue symbicort, spiriva, [place]il -Maintain O2 saturation >92%, -We will continue to follow farmer general recommendation #Cryptogenic organizing pneumonia -Continue steroids, nebulizers, -Will hold off on abx as she has remained afebrile and white count is not signifcantly elevated (13.2, likely increased 2/2 high dose steroids). -Blood culture shows no growth to date, f/u final results -Repeat chest CT in 3-4 weeks -Consider biopsy as an outpatient if she continues to have episodic pneumonia #Depression -Continue trazodone 150 mg QPM #TMJ pain -Continue home roxicodone 30 mg PO Q4P -Continue close monitor of pain score FULL CODE DVT prophylaxis: Lovenox Regular Diet Home pain scale Problem List: 1. Asthma exacerbation 2. Cryptogenic organizing pneumonia 3. TMJ (temporomandibular joint syndrome) 4. Depression Pain Ratin Pain Location: n/a Pain Goal: Remain pain free Pain Plan: Roxicodone 30 mg PO Q4P for pain Tomorrow's Labs & Rationales: None. Consulting Request: Consulting Specialty: Pulmonary Disease
[2016-07-01 09:06] VITALS: BP 110/64
--- NOTE | 2016-07-01 09:13 | Patient Discharge Instructions ---
Discharge Instructions General Discharge Information You were seen/treated for: Cryptogenic organizing pneumonia Asthma exacerbation Special Instructions: Please follow up with your PCP within 7 days of discharge. Please follow up with Dr. Verdugo within 1 week of discharge for continued management of your asthma and cryptogenic organizing pneumonia. Please have a repeat Chest CT in 2-[address] Verdugo (he will provide you with a prescription at this 1 week office visit) and have results sent to him. Please take all medications as directed. Take your home prednisone daily as instructed b Dr. Verdugo. Diet Recommended Diet: Regular Activity Activity Self Limited: Yes Acute Coronary Syndrome Inclusion Criteria At DC or during hospital stay patient has or had the following: ACS DIAGNOSIS No Discharge Core Measures Meds if any: Prescribed or Continued at Discharge Meds if any: NOT Prescribed or Continued at Discharge Congestive Heart Failure Inclusion Criteria At DC or during hospital stay patient has or had the following: CHF DIAGNOSIS No Discharge Core Measures Meds if any: Prescribed or Continued at Discharge Meds if any: NOT Prescribed or Continued at Discharge Cerebrovascular accident Inclusion Criteria At DC or during hospital stay patient has or had the following: CVA/TIA Diagnosis No Discharge Core Measures Meds if any: Prescribed or Continued at Discharge Meds if any: NOT Prescribed or Continued at Discharge Venous thromboembolism Inclusion Criteria VTE Diagnosis No VTE Type NONE VTE Confirmed by (Test) NONE Discharge Core Measures - Per Current guidelines, there needs to be overlap - treatment for the first 5 days of Warfarin therapy. - If discharged on Warfarin prior to 5 days of - overlap therapy, the patient will need to be - assessed for post discharge needs including - *Post discharge parental anticoagulation - *Warfarin and/or parental anticoagulation education - *Follow up date to check INR post discharge At least 5 days overlap therapy as Inpatient No Meds if any: Prescribed or Continued at Discharge Note: Overlap Therapy is Warfarin and Anticoagulant Meds if any: NOT Prescribed or Continued at Discharge
[2016-07-01 09:28] LABS: ABSOLUTE BASOPHIL COUNT 0 /CUMM (0.0-0.2); ABSOLUTE EOSINOPHIL COUNT 0 /CUMM (0.0-0.7); ABSOLUTE GRANULOCYTE CT 11.7 /CUMM (1.4-6.5); ABSOLUTE LYMPH COUNT 1.1 /CUMM (1.2-3.4); ABSOLUTE MONOCYTE COUNT 0.4 /CUMM (0.10-0.60); BASOPHIL % 0.1 % (0.0-2.0); EOSINOPHIL % 0.1 % (0-5); MEAN CORPUSCULAR HGB 28.3 PG (27.0-31.0); MEAN CORPUSCULAR VOLUME 85.9 FL (81.0-99.0); MEAN PLATELET VOLUME 8.9 FL (7.4-10.4); PLATELET COUNT 253 /CUMM (130-400); RBC DISTRIBUTION WIDTH 14.7 % (11.5-14.5); RED BLOOD CELL CT 4.31 /CUMM (4.20-5.40); WHITE BLOOD CELL COUNT 13.2 /CUMM (4.8-10.8)
--- NOTE | 2016-07-01 10:45 | PN- Pulmonary ---
Subjective HPI/Critical Care Issues: Patient seen and examined this morning. She is feeling much better and off oxygen. She is saturating 94% on room air. Temperature is 97.7 and her white count is 12.3. Her current Solu-Medrol dose is 40 mg IV every 8. Objective Current Medications: Current Medications Sig/Nathan Start time Last Medication Dose Route Stop Time Status Admin Acetaminophen 650 MG .STK-MED ONE 06/30 1954 DC PO 06/30 1955 Acetaminophen 650 MG .STK-MED ONE 06/30 1046 DC PO 06/30 104 Acetaminophen 650 MG Q6P PRN 06/29 0130 AC 07/01 PO 0555 Albuterol Sulfate 3 ML EVERY 4 HRS/AWAKE 06/29 0800 AC 07/01 INH 0737 Budesonide/ 2 PUF BID 06/29 1000 AC 07/01 Formoterol Fumarate INH 1027 Enoxaparin Sodium 40 MG DAILY 06/29 1000 AC 07/01 SC 0811 Methylprednisolone 40 MG Q8 06/29 0600 AC 07/01 IV 0553 Omeprazole 20 MG DAILY AC 06/29 0700 AC 07/01 PO 0552 Ondansetron HCl 4 MG Q12P PRN 06/30 1815 AC IV Oxycodone HCl 30 MG Q4P PRN 06/28 2245 AC 07/01 PO 0811 Tiotropium [place] 1 PUF DAILY 06/29 1000 AC 07/01 INH 1026 Trazodone HCl 150 MG QPM 06/29 2200 AC 06/30 PO 2116 Vital Signs & I&O Last 24 Hrs of Vitals and I&O: Vital Signs Date Time Temp Pulse Resp B/P Pulse O2 O2 Flow FiO2 Ox Delivery Rate 07/01 0906 97.7 89 20 110/64 94 Room Air 07/01 0741 96 Room Air 100% 07/01 0000 96 Room Air 06/30 2355 97.6 80 20 105/56 96 Room Air 06/30 2136 94 Room Air 06/30 1705 92 Room Air 06/30 1549 97.7 79 18 122/78 96 Nasal 2.0L Cannula Intake & Output 07/01 1600 02/06 0800 02/ 0000 Intake Total 510 480 Output Total Balance 510 480 Intake, IV 30 Intake, Oral 480 480 Exam Other Physical Findings: General - Alert, awake and oriented HEENT - normocephalic, atraumatic Cardiovascular - S1, S2 Lungs - rare rhonchi Abdomen - soft, bowel sounds positive, no tenderness Extremities - without edema or cyanosis Results Last 24 Hrs of Lab Results: Laboratory Tests 07/01/16 0713: CBC w Diff Pending, WBC Pending, RBC Pending, Hgb Pending, Hct Pending, MCV Pending, MCH Pending, RDW Pending, Plt Count Pending, MPV Pending, PUBS MCHC Pending Impression/Plan Impression/Plan Impression/Plan: Impression 35-year-old woman with a history of asthma and cryptogenic organizing pneumonia. Plan -plan to reduce solumedrol 40 mg IV every 12 and plan for by mouth prednisone 60 mg and discharge tomorrow -would repeat ct chest in 3-4 weeks -f/u in office in 3-4 weeks -TRC/Nebs -dvt prophylaxis at all times -if continues to have fleeting pneumonia a biopsy will be warranted
[2016-07-01 12:05] LABS: GRANULOCYTE % 88.8 % (42.2-75.2)
[2016-07-01 16:32] VITALS: BP 110/62
[2016-07-02 00:02] VITALS: BP 112/70
--- NOTE | 2016-07-02 07:01 | PN- Housestaff ---
See Addendum Subjective Follow-up For: Asthma exacerbation Cryptogenic organizing pneumonia Subjective: Patient seen and examined at bedside this AM. She reports much improvement in her respiratory status and is requesting to go home. She reports that she is unable to see her chronic pain specialist for several weeks and is requesting a supple of her oxycodone to hold her over until that time. Review of Systems Constitutional: Denies: chills, fever, weakness. EENTM: Denies: blurred vision, hearing changes, throat pain. Cardiovascular: Denies: chest pain, palpitations. Respiratory: Denies: cough, short of breath, wheezing. Gastrointestinal: Denies: abdominal pain. Genitourinary: Denies: dysuria. Musculoskeletal: Reports: joint pain (TMJ, chronic). Skin: Denies: change in skin color, change in hair/nails. Neurological/Psychological: Denies: anxiety, headache. Hematologic/Endocrine: Denies: bruising, bleeding. Objective Last 24 Hrs of Vital Signs/I&O Vital Signs Date Time Temp Pulse Resp B/P Pulse O2 O2 Flow FiO2 Ox Delivery Rate 07/02 0759 98.3 72 20 120/81 96 Room Air 07/02 0747 98 Room Air Room Air 07/02 0002 98.0 67 19 112/70 93 Room Air 07/01 1634 94 Room Air 07/01 1632 98.0 88 20 110/62 93 07/01 1600 Room Air 07/01 0906 97.7 89 20 110/64 94 Room Air Intake & Output 07/02 1600 07/02 0800 02/ 0000 Intake Total 300 240 Output Total Balance 300 240 Intake, Oral 300 240 Physical Exam General Appearance: Alert, Oriented X3, Cooperative, No Acute Distress Skin: No Significant Lesion HEENT: Atraumatic, Mucous Membr. moist/pink Cardiovascular: Regular Rate, Normal S1, Normal S2, No Murmurs Lungs: Clear to Auscultation, Normal Air Movement Abdomen: Normal Bowel Sounds, Soft, No Tenderness, No Hepatospenomegaly, No Masses Neurological: Normal Speech, Strength at 5/5 X4 Ext, Normal Tone Extremities: No Clubbing, No Cyanosis, No Edema Current Medications: Current Medications Sig/Nathan Start time Last Medication Dose Route Stop Time Status Admin Acetaminophen 650 MG Q6P PRN 06/29 0130 AC 02/06 PO 0555 Albuterol Sulfate 3 ML EVERY 4 HRS/AWAKE 06/29 0800 AC 07/02 INH 0744 Budesonide/ 2 PUF BID 06/29 1000 AC 07/01 Formoterol Fumarate INH 2153 Enoxaparin Sodium 40 MG DAILY 06/29 1000 AC 07/01 SC 0811 Methylprednisolone 40 MG Q12 07/01 2200 DC 07/01 IV 07/02 0000 2151 Methylprednisolone 40 MG Q8 06/29 0600 DC 07/01 IV 0553 Omeprazole 20 MG DAILY AC 06/29 0700 AC 07/02 PO 0705 Ondansetron HCl 4 MG Q12P PRN 06/30 1815 AC IV Oxycodone HCl 30 MG Q4P PRN 06/28 2245 AC 07/02 PO 0709 Prednisone 60 MG DAILY 07/02 1000 AC PO Tiotropium [place] 1 PUF DAILY 06/29 1000 AC 07/01 INH 1026 Trazodone HCl 150 MG QPM 06/29 2200 AC 07/01 PO 2150 Assessment/Plan Assessment: 35 YO Female who developed acute respiratory failure secondary to cryptogenic organizing pneumonia after steroids have been tapered. This has happened to her on at least 2 occasions in the recent past. The following is the assessment/plan: #Asthma exacerbation in the setting of severe persistent asthma -Continue TRC and nebulizers -IV soluemdrol switched to PO prednisone 60 mg today, patient has a large supple of prednisone at home and will continue 40 mg at home and follow up closely with Dr. Verdugo -Pulm consult with Dr. Verdugo appreciated -Continue symbicort, spiriva, proventil -Maintain O2 saturation >92%, -Patient to follow up with Dr. Verdugo after discharge for continued management of asthma #Cryptogenic organizing pneumonia -Continue steroids, nebulizers -Will hold off on abx as she has remained afebrile and white count is not signifcantly elevated (13.2, likely increased 2/2 high dose steroids). -Blood culture shows no growth to date, f/u final results -Repeat chest CT in 3-4 weeks after discharge to monitor UTILIZATION MANAGEMENT RN -Consider biopsy as an outpatient if she continues to have episodic pneumonia #Depression -Continue trazodone 150 mg QPM #TMJ chronic pain -Continue home roxicodone 30 mg PO Q4P -Continue close monitor of pain score -[place] checked today, patient is requesting oxycodone but we will not fill a new prescription as she should have some medication remaining at home -Will send discharge summary to chronic pain specialist to make that physician aware patient is also receiving prescriptions for oxycodone occasionally from prescribers in [place] FULL CODE DVT prophylaxis: Lovenox Regular Diet Home pain scale Problem List: 1. Cryptogenic organizing pneumonia 2. TMJ (temporomandibular joint syndrome) 3. Asthma exacerbation Pain Ratin Pain Location: Chronic low back pain Pain Goal: Pain 4 or less Pain Plan: Oxycodone 30 mg Q4P for back pain. Tomorrow's Labs & Rationales: None. Consulting Request: Consulting Specialty: Pulmonary Disease
[2016-07-02] MEDS ORDERED: OXYCODONE HCL30 M1 PO (07:40)
[2016-07-02 07:59] VITALS: BP 120/81
--- NOTE | 2016-07-02 10:18 | PN- Pulmonary ---
Subjective HPI/Critical Care Issues: pt seen and examined room air feeling better dyspnea improved Objective Current Medications: Current Medications Sig/Nathan Start time Last Medication Dose Route Stop Time Status Admin Acetaminophen 650 MG Q6P PRN 06/29 0130 AC 07/01 PO 0555 Albuterol Sulfate 3 ML EVERY 4 HRS/AWAKE 06/29 0800 AC 07/02 INH 0744 Budesonide/ 2 PUF BID 06/29 1000 AC 07/02 Formoterol Fumarate INH 0902 Enoxaparin Sodium 40 MG DAILY 06/29 1000 AC 07/02 SC 0901 Methylprednisolone 40 MG Q12 07/01 2200 DC 07/01 IV 07/02 0000 2151 Methylprednisolone 40 MG Q8 06/29 0600 DC 07/01 IV 0553 Omeprazole 20 MG DAILY AC 06/29 0700 AC 07/02 PO 0705 Ondansetron HCl 4 MG Q12P PRN 06/30 1815 AC IV Oxycodone HCl 30 MG Q4P PRN 06/28 2245 AC 07/02 PO 0709 Prednisone 60 MG DAILY 07/02 1000 AC 07/02 PO 0901 Tiotropium [place] 1 PUF DAILY 06/29 1000 AC 07/02 INH 0902 Trazodone HCl 150 MG QPM 06/29 2200 AC 07/01 PO 2150 Vital Signs & I&O Last 24 Hrs of Vitals and I&O: Vital Signs Date Time Temp Pulse Resp B/P Pulse O2 O2 Flow FiO2 Ox Delivery Rate 07/02 0759 98.3 72 20 120/81 96 Room Air 07/02 0747 98 Room Air Room Air 07/02 0002 98.0 67 19 112/70 93 Room Air 07/01 1634 94 Room Air 07/01 1632 98.0 88 20 110/62 93 07/01 1600 Room Air Intake & Output 07/02 1600 07/02 0800 07/02 0000 Intake Total 300 240 Output Total Balance 300 240 Intake, Oral 300 240 Exam Other Physical Findings: General - Alert, awake and oriented HEENT - normocephalic, atraumatic Cardiovascular - S1, S2 Lungs - rare rhonchi Abdomen - soft, bowel sounds positive, no tenderness Extremities - without edema or cyanosis Impression/Plan Impression/Plan Impression/Plan: Impression 35-year-old woman with a history of asthma and cryptogenic organizing pneumonia. Plan -dc today on 40mg prednisone without a taper -would repeat ct chest in 3-4 weeks -f/u in office in 2 weeks -TRC/Nebs -dvt prophylaxis at all times -if continues to have fleeting pneumonia a biopsy will be warranted
--- NOTE | 2016-07-02 11:29 | NUR ---
NURSING NOTE: PATIENT DISCHARGED TO HOME SELF CARE. ALL DISCHARGE INFORMATION EDUCATED TO PATIENT. PATIENT HAS PRESCRIPTIONS AT HOME ALREADY. IV DISCONTINUED AT THIS TIME. PAIN CONTROLLED WITH MEDS.
--- NOTE | 2016-07-02 13:10 | Discharge Summary ---
Visit Information Visit Dates Admission Date: 06/28/16 Discharge Date: 07/02/16 Hospital Course Course Attending Physician: JUAN CHAPARRO,MYLA Leo Primary Care Physician: ELVIN CHAPARRO,THEODORA Mehta Consulting Request: Consulting Specialty: Pulmonary Disease Consulting Physician: Dr. Verdugo Reason for Consult: Acute asthma exacerbation, [facility] Course: Ms. Vásquez is a 35 year old female with PMH recurrent asthma attacks, cryptogenic organizing pneumonnia, depression and chronic TMJ pain on oxycodone who presented to [facility] on 06/28/16 with chief complaint of shortness of breath, wheezing and dry cough for about 4 days. Of note, patient had a recent discharge on June 10 for similar issues and was still on a tapering dose of steroids when these symptoms returned. She was requiring the use of her rescue inhaler every 1-2 hours and her boyfriend noted greying of her lips while she was sleeping. In the ED: Vital signs showed T 97.5, HR 118, RR 24, BP 122/83 and O2 saturation of 81% on room air. Labs showed eosinophils 20.8%, d-dimer 1432, WBC 11.8, otherwise normal CBC and BEP. ABG showed pH 7.37 with pCO2 48 and significant hypoxia to 61 despite oxygen concentration at 5 L/m. CXR was done and showed no acute abnormalities. Chest CTA was done and showed evidence of cryptogenic organizing pneumonia. Physical exam was done and is noted as below: General: obese patient in mild respiratory distress Head: Normocephalic, atraumatic Eyes: Pupils normal in size, regular, reactive to light and accommodation, EOM normal Ears: B/L normal on inspection Nose: Normal on inspection Throat/mouth: Moist mucosa Neck: Supple, full range of motion, no thyromegaly Heart: Regular rate, regular rhythm Lung: B/L WHEEZE PRESENT, no crepitis heard Abd: Soft, non-tender, no distention appreciated Back: Normal range of motion Extremities: Normal knee exam bilaterally, no pedal edema, neurovascularly intact Neurologic: Alert, oriented x3, Cranial exam grossly intact, Speech is clear and coherent Skin: Warm and dry Psychiatric: Calm, cooperative, coherant Patient was admitted to the general medicine floor and the following was the management: 1. Acute hypoxic hypercarbic respiratory failure secondary to acute asthma exacerbation and cryptogenic organizing pneumonia flare: Patient is noted to have recurrent flares with tapering doses of steroids. She was provided supplemental oxygen, TRC nebulizers, and started on IV methylprednisolone for anti-inflammatory properties. No antibiotics were started as patient had no fever, leukocytosis or signs of sepsis. Blood cultures were done and showed no growth at time of discharge. Patient was slowly titrated off of oxygen and continued on her home nebulizers. Pulmonary consult was placed and agreed with continuing steroids with a daily taper. Patient was ultimately switched to PO prednisone. Dr. Verdugo, her frame stylist suggested that patient has a large supple of 40 gm PO prednisone at home and she should take this daily until follow up with him in 1 week, at which time he would decide if she needed to be maintained on this dose or tapered. He will also repeat her chest CT within 3-4 weeks to monitor her cryptogenic organizing pneumonia. Patient is to continue all her home inhalers and we recommended highly that patient stay away from all known triggers to her asthma. 2. Depression: Patient was continued on trazodone 150 mg QPM. She may continue this on discharge and follow up closely with her PCP for continued care. 3. TMJ syndrome/Chronic pain: Patient was continued on her home roxicodone [address] [employer]ER was checked prior to patient's discharge and it appeared that patient was receiving prescriptions from both her chronic pain specialist in [place] as well as at several ED/[place] visits she has had recently. I encourage both her PCP and chronic pain specialist to check CT DYE TANK TENDER in both [place] and [place] for close monitoring of her oxycodone use. Patient was not given a prescription for this mediation and told to follow up with her chronic pain specialist for further management. 4. Code: FULL 5. DVT Prophylaxis: SC Lovenox Complications: None. Allergies: Coded Allergies: NO KNOWN ALLERGIES (03/22/15) Significant Procedures: EXAMINATION: XR PORTABLE CHEST CLINICAL INFORMATION: History of cryptogenic organizing pneumonia. COMPARISON: Prior studies including recent chest x-ray and CT scan of 06/07/16. TECHNIQUE: Portable portable AP erect chest. view of the chest was obtained. FINDINGS: No significant abnormality is noted involving the heart, lungs, mediastinum, bony thorax or soft tissues. No focal consolidation or other abnormality is demonstrated. IMPRESSION: Unremarkable examination. EXAMINATION: CT ANGIOGRAM OF THE CHEST WITH AND WITHOUT CONTRAST (CT PULMONARY ANGIOGRAM FOR PE) CLINICAL INFORMATION: Shortness of breath and elevated d-dimer. COMPARISON: Chest CTA 06/07/2015 per TECHNIQUE: Prior to contrast administration, noncontrast localization images were obtained. Subsequently, multidetector volumetric imaging was performed from the thoracic inlet to below the diaphragms following the administration of 95 mL Optiray 350 intravenous contrast. No contrast reaction reported Sagittal, coronal, and MIP oblique sagittal reformatted images were obtained on the CT workstation, uploaded to PACS, and reviewed. FINDINGS: No filling defects within the central, lobar, or segmental pulmonary arteries to suggest underlying pulmonary embolism. New multifocal areas of crazy paving with patchy groundglass opacities with superimposed interlobular septal thickening within the right and left upper lobes, the right middle lobe and lingula, and the lower lobes bilaterally. More nodular consolidative changes are appreciated within the upper lobes bilaterally. The imaging appearance is similar to the 04/18/[address] with these findings having nearly resolved on the 06/07/[address] and remain suggestive of cryptogenic organizing pneumonia. The thoracic aorta is normal in caliber. The heart is normal in size without evidence of a pericardial effusion. A mildly enlarged subcarinal lymph node is stable. There is no hilar or axillary lymphadenopathy. No significant soft tissue findings within the chest. The partially visualized upper abdomen is unremarkable. No acute osseous abnormalities. IMPRESSION: - No pulmonary embolism. - New multifocal areas of crazy paving with patchy groundglass opacities with superimposed interlobular septal thickening within the right and left upper lobes, the right middle lobe and lingula, and the lower lobes bilaterally. More nodular consolidative changes are appreciated within the upper lobes bilaterally. The imaging appearance is similar to the 04/18/[address] with these findings having nearly resolved on the 06/07/[address] and remain suggestive of cryptogenic organizing pneumonia. EXAMINATION: US TRIPLEX LOWER EXTREMITY, BILATERAL CLINICAL INFORMATION: Bilateral lower extremity edema and swelling. COMPARISON: Venous duplex examination dated 01/16/2016. TECHNIQUE: Color-flow triplex imaging with spectral analysis and compression Doppler were performed on the bilateral lower extremities. FINDINGS: Respiratory variation, normal compression and augmented flow are noted throughout the bilateral lower extremities. The visualized common femoral vein, proximal greater saphenous vein, femoral vein, profunda femoral vein, popliteal vein and visualized mid calf venous segments show no evidence of deep venous thrombosis. There is no Lawrence's cyst. IMPRESSION: Normal triplex scan without evidence of deep venous thrombosis involving the bilateral lower extremities. Disposition Summary Disposition Principal Diagnosis: Acute asthma exacerbation Cryptogenic organizing pneumonia Additional Diagnosis: Chronic pain 2/2 TMJ Syndrome Depression Discharge Disposition: home or self care Discharge Instructions General Discharge Information Code Status: Full Code Patient's Diet: Regular diet. Patient's Activity: Self-limited, as tolerated. Follow-Up Instructions/Appts: Please follow up with your PCP within 7 days of discharge. Please follow up with Dr. Verdugo within 1 week of discharge for continued management of your asthma and cryptogenic organizing pneumonia. Please have a repeat Chest CT in 2-[address] Verdugo (he will provide you with a prescription at this 1 week office visit) and have results sent to him. Please take all medications as directed. Take your home prednisone daily as instructed by Dr. Verdugo. Medications at Discharge Discharge Medications: Continue taking these medications: Albuterol Sulfate (Albuterol Sulfate Hfa) 90 MCG HFA.AER.AD 2 PUFF Inhale through mouth EVERY 4-6 HOURS NEEDED as needed for SHORTNESS OF BREATH Qty = 1 Instructions: 90 MCG PER PUFF Budesonide/Formoterol [place] (Symbicort 160-4.5 Mcg Inhaler) 160 MCG/4.5 MCG PUF 2 Puff Inhale through mouth TWICE DAILY Days = 30 Tiotropium [place] (Spiriva) 18 MCG CAP.W.DEV 1 Capsule Inhale through mouth DAILY Comments: Last Taken: 07/02/16 Time: 0900 AM Prednisone (Prednisone) 10 MG TABLET 2 Tablet ORAL DAILY Comments: 3 TABS GIVEN ON 07/02/16 @ 0900 AM Trazodone HCl (Trazodone HCl) 50 MG TABLET 3 Tablet ORAL Every night Qty = 30 Comments: Last Taken: 07/01/16 Time: 2200 PM Oxycodone HCl (Oxycodone HCl) 30 MG TABLET 1 Tablet ORAL EVERY 4 HOURS NEEDED as needed for PAIN Comments: Last Taken: 07/02/16 Time: 1100 AM Albuterol Sulfate (Albuterol Sulfate) 2.5 MG/3 ML (0.083 %) VIAL.NEB 1 Vial Inhale Solution THREE TIMES DAILY Qty = 270 Comments: Last Taken: 07/02/16 Time: 0800 AM GIVEN NEBULIZER TX Omeprazole Magnesium (Omeprazole Magnesium) 20 MG CAPSULE. 1 Capsule ORAL DAILY Qty = 14 Comments: Last Taken: 07/02/16 Time: 0700 AM Copies To: Dr. Heath Montgomery Jr, MD; ELVIN CHAPARRO,THEODORA Mehta; TYE CHAPARRO,ANGEL Attending Review Statement Documenting Attending: JUAN CHAPARRO,MYLA Leo Other Findings: DC home on po prednisone. see my addedum to progress note for more details.
== END 2016-07-02 11:35 | DRG 142 ==
LOC: ENRESERVDT → ENRESERVTM → ERH 15:20 → ERHI 19:12 → 2NB 19:12 → ENPENDDIS 19:12 → 2NB 22:00
PROVIDERS: Internal Medicine; Internal Medicine Interventional Cardiology; Physician Assistant; ADMIT Internal Medicine
DX: J84.116 Cryptogenic organizing pneumonia (principal); J45.901 Unspecified asthma with (acute) exacerbation; J96.01 Acute respiratory failure with hypoxia; K58.9 Irritable bowel syndrome, unspecified; M79.7 Fibromyalgia; F32.9 Major depressive disorder, single episode, unspecified; M26.609 Unspecified temporomandibular joint disorder, unspecified side
CPT/HCPCS: 2NBP; 2NBSP; 36415; 82436; 87040; 93005; 93010; 93970; 96374; J1650; J2405; J2920; J2930; J3490

== ENCOUNTER 2016-07-30 11:46 | Inpatient (IN) | payer OTHER ==
[~2016-07-30] VITALS: Ht 157.5 cm; Wt 74.8 kg
[~2016-07-30 11:46] MED LIST changes: +ALBUTEROL2.5 MG/3 M INH/SOL; +OMEPRAZOLE MAGN20 M1 PO
--- NOTE | 2016-07-30 11:55 | NUR ---
APPRECIATE TRIAGE NOTE. PA STUDENT AND PA ANIA TO BEDSIDE FOR EVAL.
--- NOTE | 2016-07-30 11:58 | ED DYSPNEA/ASTHMA COMPLAINT ---
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 Source: patient Exam Limitations: no limitations Vital Signs & Intake/Output Vital Signs & Intake/Output Vital Signs Date Time Temp Pulse Resp B/P Pulse O2 O2 Flow FiO2 Ox Delivery Rate 07/31 0800 95 Nasal 2.0L Cannula 07/31 0728 96.5 60 18 114/80 95 Nasal 3.0L Cannula 07/31 0000 93 Nasal 2.0L Cannula 07/30 2221 97.2 104 19 130/68 93 07/30 2000 Nasal 4.0L Cannula 07/30 1645 97 Nasal 2.0L Cannula 07/30 1640 98.7 88 20 114/80 97 07/30 1613 97.4 104 20 117/70 95 Room Air Room Air 07/30 1331 97.1 107 18 125/71 96 07/30 1232 94 Nasal 2.0L Cannula 07/30 1206 95 Nasal 2.0L Cannula 07/30 1151 97.4 134 26 124/90 87 Room Air ED Intake and Output 07/31 0000 07/30 1200 Intake Total 600 Output Total 550 Balance 50 Intake, Oral 600 Output, Urine 550 Patient 165 lb 165 lb Weight Allergies Coded Allergies: NO KNOWN ALLERGIES (07/30/16) Triage Note: TRIAGE: PT TO ER C/C DIFFICULTY BREATHING. HX OF ASTHMA, BRONCHITIS AND CRYPTOGENIC ORGANIZING PNEUONOMIA. REPORTS DIFFICULTY BREATHING WORSENING OVER THE LAST FEW DAYS. +AUDIBLE WHEEZE AND INCREASED WORK OF BREATHING. 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 TAKEN FROM TRIAGE TO [facility] RM 6 FOR TREATMENT AND FURTHER EVAL. Triage Nurses Notes Reviewed? yes Onset: Abrupt Duration: day(s):, constant, getting worse Timing: recent history Severity: moderate, severe Activities at Onset: none : No Patient currently breastfeeds: No HPI: 35-year-old female comes into emergency room for further evaluation of shortness of breath. Patient has history of bronchitis pneumonia asthma. Patient sees Dr. Verdugo. Patient has been on 30 mg of prednisone daily since March 2017 and they've been trying to decrease the dosing slowly but every time they do for her symptoms get worse. Some associated chest tightness. Coughing. Denies any fever. Denies any vomiting. Nothing seems to make this better. O2 saturation 88 percent upon arrival. Denies any other associated symptoms. (CY JOHNSON) Reconcile Medications Albuterol Sulfate 2.5 MG/3 ML (0.083 %) VIAL.NEB 1 Vial INH/SIXTO TID CRYPTOGENIC ORGANIZING PNUEMON (Reported) Albuterol Sulfate (Proair Hfa) 90 MCG HFA.AER.AD 2 PUF INH Q4-6 PRN PRN RESPIRATORY (Reported) Budesonide/Formoterol Fumarate (Symbicort 160-4.5 Mcg Inhaler) 160 MCG-4.5 MCG/ ACTUATION HFA.AER.AD 2 PUF INH BID SOB (Reported) Omeprazole Magnesium 20 MG CAPSULE.DR 1 CAP PO DAILY GI (Reported) Oxycodone HCl 30 MG TABLET 1 TAB PO Q4P PRN PAIN (Reported) Prednisone 10 MG TABLET 30 MG PO DAILY STEROID TAPER (Reported) Tiotropium [place] (Spiriva) 18 MCG CAP.W.DEV 1 CAP INH DAILY ASTHMA ( Reported) Trazodone HCl 50 MG TABLET 3 TAB PO QPM SLEEP (Reported) (BRISA CHAPARRO,DEE) Past History Travel History Traveled to [place] past 21 day No Medical History Any Pertinent Medical History? 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 FH: diabetes mellitus UNCLE-MATERNAL (BOOP). GRANDMOTHER-MATERNAL (CHF). Relation not specified for: FH: CAD (coronary artery disease) FH: HTN (hypertension) FH: ovarian cancer FH: uterine cancer Hx Contributory? No (CY JOHNSON) Review of Systems Review of Systems Constitutional: Reports: see HPI. EENTM: Reports: no symptoms. Respiratory: Reports: see HPI. Cardiovascular: Reports: no symptoms. GI: Reports: no symptoms. Genitourinary: Reports: no symptoms. Musculoskeletal: Reports: no symptoms. Skin: Reports: no symptoms. Neurological/Psychological: Reports: no symptoms. Hematologic/Endocrine: Reports: no symptoms. Immunologic/Allergic: Reports: no symptoms. All Other Systems: Reviewed and Negative (CY JOHNSON) Physical Exam Physical Exam General Appearance: well developed/nourished, no apparent distress, alert Head: atraumatic, normal appearance Eyes: Bilateral: normal appearance. Ears, Nose, Throat: normal pharynx, normal ENT inspection, hearing grossly normal Neck: normal inspection Respiratory: decreased breath sounds, wheezing, respiratory distress (moderate) Cardiovascular: regular rate/rhythm Gastrointestinal: soft Extremities: normal inspection, normal capillary refill Neurologic/Psych: awake, alert, oriented x 3, normal gait Skin: intact, normal color Core Measures ACS in differential dx? No Severe Sepsis Present: No Septic Shock Present: No (CY JOHNSON) Progress Differential Diagnosis: asthma, AMI, bronchitis, costochondritis, CHF, COPD, musculoskeletal pain, pericarditis, pulmonary embolism, pneumonia, pneumothorax, rib fracture, unstable angina Plan of Care: Orders Procedure Date/time Status RAPID VIRAL INFLUENZA A 07/31 0756 Complete Regular Diet 07/30 D Active RT: Evaluation 07/30 1959 Active CULTURE,URINE 07/30 1829 Active STREP PNEUMO URINARY ANTIGEN 07/30 1829 Active LEGIONELLA URINARY ANTIGEN 07/30 1829 Active URINALYSIS 07/30 1829 Complete Vital Signs 07/30 1636 Active Teach/Educate 07/30 1636 Active Pain Treatment and Response 07/30 1636 Active Nutritional Intake, Monitor 07/30 1636 Active Isolation 07/30 1636 Active Intake & Output 07/30 1636 Active Patient Care Conference 07/30 1636 Active Activity/Ambulation 07/30 1636 Active Lab Add-on Test 07/30 1502 Active Pathway - chart 07/30 1448 Active Pathway - chart 07/30 1447 Active House Staff 07/30 1447 Active Patient Data 07/30 1447 Active Code Status 07/30 1447 Active Vital Signs 07/30 1444 Active Code Status 07/30 1444 Complete Intake & Output 07/30 1415 Active Patient Data 07/30 1400 Active Admit to inpatient 07/30 1355 Active TROPONIN LEVEL 07/30 1215 Complete PHOSPHORUS 07/30 1215 Complete MAGNESIUM 07/30 1215 Complete HUMAN BETA HCG SCREEN 07/30 1157 Complete COMPREHENSIVE METABOLIC PANEL 07/30 1157 Complete CBC WITHOUT DIFFERENTIAL 07/30 1157 Complete EKG 07/30 1157 Active OXYGEN SETUP CHG 07/30 UNK Complete OXYGEN 07/30 UNK Complete OXYGEN TRANSPORT 07/30 UNK Complete TRC EVALUATION (GEN) 07/30 UNK Complete THERAPIST ORDERS 07/30 UNK Complete AEROSOL (GEN) 07/30 UNK Complete VTE Mechanical Prophylaxis 07/30 UNK Active Current Medications Sig/Nathan Start time Last Medication Dose Stop Time Status Admin Montelukast Sodium 10 MG AT BEDTIME 07/31 2200 AC (Singulair) Loratadine 10 MG DAILY 07/31 1000 AC (Claritin) Acetaminophen 650 MG Q6P PRN 07/30 1500 AC (Tylenol) Laboratory Tests 07/30/162035: Urine Color YEL, Urine Clarity CLEAR, Urine pH 6.5, Ur Specific [place] 1.010, Urine Protein NEG, Urine Ketones NEG, Urine Nitrite NEG, Urine Bilirubin NEG, Urine Urobilinogen 0.2, Ur Leukocyte Esterase NEG, Ur Microscopic EXAM NOT REQUIRED, Urine Hemoglobin NEG, Urine Glucose >=1000 H 07/30/16 1215: Anion Gap 9, Estimated GFR > 60, BUN/Creatinine Ratio 17.1, Glucose 101 H, Calcium 9.1, Phosphorus 4.5, Magnesium 1.6, Total Bilirubin 0.9, AST 26, ALT 35, Alkaline Phosphatase 67, Troponin I < 0.01, Total Protein 6.5, Albumin 3.9, Globulin 2.6, Albumin/Globulin Ratio 1.5, Total Beta HCG NEGATIVE, CBC w Diff NO MAN DIFF REQ, RBC 4.77, MCV 83.9, MCH 28.1, RDW 13.9, MPV 7.6, Gran % 62.7, Lymphocytes % 23.1, Monocytes % 6.6, Eosinophils % 7.1 H, Basophils % 0.5, Absolute Granulocytes 6.0, Absolute Lymphocytes 2.2, Absolute Monocytes 0.6, Absolute Eosinophils 0.7, Absolute Basophils 0, PUBS MCHC 33.5 Microbiology 07/31 09 NASOPHARYN: Influenza Virus A & B Rapid Smear - COMP 07/31 2035 URINE ROUT: Legionella Antigen - RES 07/31 2035 URINE ROUT: Streptococcus pneumoniae Antigen (M - RES 07/31 2035 URINE ROUT: Urine Culture - RES Diagnostic Imaging: Viewed by Me: Radiology Read. Discussed w/RAD: Radiology Read. Radiology Impression: SERVICE DATE: 07/30/16 EXAM TYPE: RAD - XRY-CHEST XRAY, PA AND LATERAL EXAMINATION: XR CHEST, 2 VIEWS CLINICAL INFORMATION: Shortness of breath. COMPARISON: CT and chest radiograph dated 06/28/2016 TECHNIQUE: PA and lateral views of the chest were obtained. FINDINGS: Mild atelectasis is present in the lung bases. Lungs otherwise clear. No consolidation, pneumothorax, or pleural effusion. Cardiac and mediastinal contours are normal. Pulmonary vasculature is unremarkable. Osseous thorax is unremarkable. IMPRESSION: No acute cardiopulmonary findings. Mild bibasilar atelectasis. DICTATED BY: MAMTA MENDIETA MD DATE/TIME DICTATED:07/30/161333 RN PALLIATIVE CARE:NABOR DATE/TIME TRANSCRIBED:07/30/161333 CONFIDENTIAL, DO NOT COPY WITHOUT APPROPRIATE AUTHORIZATION. <Electronically signed in Other Vendor System> Initial ED EKG: normal intervals, normal p-waves, normal sinus rhythm, rate (108 ) (CY JOHNSON) Departure Departure Disposition: STILL A PATIENT Condition: Stable Clinical Impression Primary Impression: Asthma exacerbation Secondary Impressions: Hypoxia Referrals: THEODORA OCONNOR MD (PCP/Family) Departure Forms: Customer Survey General Discharge Information Admission Note Spoke With: JOSE ALFREDO PATRICK MD Documentation of Exam: Documentation of any treatments & extenuating circumstances including Concerns Regarding Discharge (functional status, medication knowledge or non-compliance, living conditions, etc.) that warrant an admission rather than observation: Patient was hypoxic here in the emergency room. Patient will require supplemental oxygen. Regular breathing treatments. IV steroids. Pulmonary consultation. High risk. Patient has failed outpatient treatment with oral steroids. (CY JOHNSON) PA/SECONDARY SET UP MAN Co-Sign Statement Statement: ED Attending supervision documentation- [] I saw and evaluated the patient. I have also reviewed all the pertinent lab results and diagnostic results. I agree with the findings and the plan of care as documented in the PA's/SECONDARY SET UP MAN's documentation. [X] I have reviewed the ED Record and agree with the PA's/SECONDARY SET UP MAN's documentation. [] Additions or exceptions (if any) to the PAs/SECONDARY SET UP MAN's note and plan are summarized below: [] (BRISA CHAPARRO,DEE) Critical Care Note Critical Care Note Critical Care Time: non-applicable (ANIA COSBY,CY)
--- NOTE | 2016-07-30 12:05 | NUR ---
EKG IN PROGRESS. RT TO BEDSIDE FOR DUONEB.
[2016-07-30 12:27] LABS: ABSOLUTE BASOPHIL COUNT 0 /CUMM (0.0-0.2); ABSOLUTE EOSINOPHIL COUNT 0.7 /CUMM (0.0-0.7); ABSOLUTE LYMPH COUNT 2.2 /CUMM (1.2-3.4); ABSOLUTE MONOCYTE COUNT 0.6 /CUMM (0.10-0.60); BASOPHIL % 0.5 % (0.0-2.0); EOSINOPHIL % 7.1 % (0-5); GRANULOCYTE % 62.7 % (42.2-75.2); MEAN CORPUSCULAR HGB 28.1 PG (27.0-31.0); MEAN CORPUSCULAR HGB CONC 33.5 G/DL (33.0-37.0); MEAN CORPUSCULAR VOLUME 83.9 FL (81.0-99.0); MEAN PLATELET VOLUME 7.6 FL (7.4-10.4); PLATELET COUNT 237 /CUMM (130-400); RBC DISTRIBUTION WIDTH 13.9 % (11.5-14.5); RED BLOOD CELL CT 4.77 /CUMM (4.20-5.40); WHITE BLOOD CELL COUNT 9.5 /CUMM (4.8-10.8)
--- NOTE | 2016-07-30 12:30 | NUR ---
LINE EST #20 TO LEFT HAND. LABS OBTAINED AND SENT (LAV,SST,EXTRA BLUE,EXTRA NELSON.) PT MEDICATED WITH SOLUMEDROL 125MG IV PER EMAR. PT SAO2 NOTED TO BE 94% ON NC 2L.
--- NOTE | 2016-07-30 12:51 | NUR ---
PT TO RADIOLOGY VIA STRETCHER.
--- NOTE | 2016-07-30 13:05 | NUR ---
PT RETURN FROM RADIOLOGY VIA STRETCHER.
--- NOTE | 2016-07-30 13:39 | RADIOLOGY REPORT ---
EXAMINATION: XR CHEST, 2 VIEWS CLINICAL INFORMATION: Shortness of breath. COMPARISON: CT and chest radiograph dated 06/28/2016 TECHNIQUE: PA and lateral views of the chest were obtained. FINDINGS: Mild atelectasis is present in the lung bases. Lungs otherwise clear. No consolidation, pneumothorax, or pleural effusion. Cardiac and mediastinal contours are normal. Pulmonary vasculature is unremarkable. Osseous thorax is unremarkable. IMPRESSION: No acute cardiopulmonary findings. Mild bibasilar atelectasis.
--- NOTE | 2016-07-30 13:55 | NUR ---
HARJEET ANIA TO BEDSIDE TO DICUSS RESULTS AND POC.
--- NOTE | 2016-07-30 14:06 | History & Physical ---
MYRA MIN 07/30/16 1406: General Information and HPI MD Statement: I have seen and personally examined TERESA RODRIGEZ and documented this H&P. The patient is a 35 year old F who presented with a patient stated chief complaint of [difficulty breathing]. Source of Information: patient Exam Limitations: no limitations History of Present Illness: Ms. Rodrigez is a 35-year-old patient lady with a PMH of asthma, cryptogenic organizing pneumonia, insomnia, IBS, fibromyalgia, chronic joint pain in setting of TMJ who presents with complaints of 2 day duration persistent difficulty breathing. Symptoms started on Friday after she took her dog in a walk outside in the cool air. She reports that since then she has been experiencing chest tightness and difficulty with deep inspiration. Despite using her pro-air and nebulizer treatment symptoms have persisted. Later that night she did notice that her saturations dropped to 84% on RA. She also endorses wheezing and mild sore throat since Friday. She does endorse sick contact in her knees had an ear infection but denies anyone with URI symptoms. Patient follows up with Dr. Verdugo with her last visit 2 weeks ago when her prednisone was decreased from 40 mg to 30 mg daily. She underwent a 24-hour nocturnal pulse oximetry study and mailed out the device to the [employer] yesterday. ROS: She denies any fevers, chills, palpitations, nausea, vomiting, changes in bowel/bladder habits. Allergies/Medications Allergies: Coded Allergies: NO KNOWN ALLERGIES (07/30/16) Home Med list Albuterol Sulfate 2.5 MG/3 ML (0.083 %) VIAL.NEB 1 Vial INH/SIXTO TID CRYPTOGENIC ORGANIZING PNUEMON (Reported) Albuterol Sulfate (Proair Hfa) 90 MCG HFA.AER.AD 2 PUF INH Q4-6 PRN PRN RESPIRATORY (Reported) Budesonide/Formoterol Fumarate (Symbicort 160-4.5 Mcg Inhaler) 160 MCG-4.5 MCG/ ACTUATION HFA.AER.AD 2 PUF INH BID SOB (Reported) Omeprazole Magnesium 20 MG CAPSULE.DR 1 CAP PO DAILY GI (Reported) Oxycodone HCl 30 MG TABLET 1 TAB PO Q4P PRN PAIN (Reported) Prednisone 10 MG TABLET 30 MG PO DAILY STEROID TAPER (Reported) Tiotropium [place] (Spiriva) 18 MCG CAP.W.DEV 1 CAP INH DAILY ASTHMA ( Reported) Trazodone HCl 50 MG TABLET 3 TAB PO QPM SLEEP (Reported) Past History Travel History Traveled to [place] past 21 day No Medical History Neurological: NONE EENT: TMJ arthritis s/p jaw surgery at [facility] 2010 Cardiovascular: syncope (vasovagal(has had cardio eval)) Respiratory: asthma, bronchitis, pneumonia, cRYPTOGENIC ORGANIZING Gastrointestinal: constipation (IBS), irritable bowel syndrome Hepatic: NONE Renal: NONE Musculoskeletal: fibromyalgia Psychiatric: anxiety Endocrine: NONE Blood Disorders: NONE Cancer(s): 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 FH: diabetes mellitus UNCLE-MATERNAL (BOOP). GRANDMOTHER-MATERNAL (CHF). Relation not specified for: FH: CAD (coronary artery disease) FH: HTN (hypertension) FH: ovarian cancer FH: uterine cancer Psychosocial History Who Do You Live With? SIGNIFICANT OTHER Services at Home: None Primary Language: Citizen Of [place] Functional Ability ADLs Independent: dressing, eating, toileting, bathing. Ambulation: independent IADLs Independent: shopping, housework, finances, food prep, telephone, transportation , medication admin. Review of Systems Review of Systems Constitutional: Reports: see HPI. EENTM: Reports: see HPI. Cardiovascular: Reports: see HPI. Respiratory: Reports: see HPI. GI: Reports: no symptoms. Genitourinary: Reports: no symptoms. Musculoskeletal: Reports: no symptoms. Skin: Reports: no symptoms. Neurological/Psychological: Reports: no symptoms. Exam & Diagnostic Data Last 24 Hrs of Vital Signs/I&O Vital Signs Date Time Temp Pulse Resp B/P Pulse O2 O2 Flow FiO2 Ox Delivery Rate 07/30 1331 97.1 107 18 125/71 96 07/30 1232 94 Nasal 2.0L Cannula 07/30 1206 95 Nasal 2.0L Cannula 07/30 1151 97.4 134 26 124/90 87 Room Air Intake & Output 07/30 1600 07/30 0800 07/30 0000 Intake Total Output Total Balance Patient 165 lb Weight Physical Exam General Appearance Alert, Cooperative, No Acute Distress Skin No Significant Lesion HEENT EOMI, Mucous Membr. moist/pink, SCant pharyngeal erythema Neck No LAD Lymphatic Cervical nl Cardiovascular Regular Rate, Normal S1, Normal S2 Lungs Distant breath sounds with expiratory wheezing present BL Abdomen Normal Bowel Sounds, Soft, No Tenderness Neurological Normal Speech, Strength at 5/5 X4 Ext Extremities No Edema, Normal Pulses Vascular Pulses Symmetrical Last 24 Hrs of Labs/Luke: Laboratory Tests 07/30/16 1215: Anion Gap 9, Estimated GFR > 60, BUN/Creatinine Ratio 17.1, Glucose 101 H, Calcium 9.1, Phosphorus 4.5, Magnesium 1.6, Total Bilirubin 0.9, AST 26, ALT 35, Alkaline Phosphatase 67, Troponin I < 0.01, Total Protein 6.5, Albumin 3.9, Globulin 2.6, Albumin/Globulin Ratio 1.5, Total Beta HCG NEGATIVE, CBC w Diff NO MAN DIFF REQ, RBC 4.77, MCV 83.9, MCH 28.1, RDW 13.9, MPV 7.6, Gran % 62.7, Lymphocytes % 23.1, Monocytes % 6.6, Eosinophils % 7.1 H, Basophils % 0.5, Absolute Granulocytes 6.0, Absolute Lymphocytes 2.2, Absolute Monocytes 0.6, Absolute Eosinophils 0.7, Absolute Basophils 0, PUBS MCHC 33.5 Diagnostic Data CXR Results No acute cardiopulmonary findings. Mild bibasilar atelectasis. Assessment/Plan Assessment: 35-year-old patient lady with a PMH of asthma, cryptogenic organizing pneumonia, insomnia, IBS, fibromyalgia, chronic joint pain in setting of TMJ who presents with complaints of 2 day duration persistent difficulty breathing and chest tightness. VS: BP 124/90, HR 134, RR 26, SPO2 87% on 2L, T 97.4 Pertinent labs: WBC 9.5 with 7.1% eosinophilia, H&H 13.4/40.0, potassium, bicarbonate 28, BUN/Cr 12/0.7 Rapid influenza test: Negative Problem list: 1. Asthma exacerbation with hypoxia 2. History of cryptogenic organizing pneumonia on the steroid taper 3. Chronic jaw pain Plan: * Admit to general medicine floor * Nebulizer treatments * Patient received 1 dose of Solu-Medrol 125 mg in ER. We'll start her on 40 mg IV Q8 from tomorrow with gradual taper * Follow-up strep/Legionella antigens * Follow-up mag and phosphorus levels. Replete if less than 2.0 * EKG unremarkable. Follow-up troponin * Continue oxycodone 30 mg PO Q4PRN for chronic jaw pain * Regular diet * DVT prophylaxis: Lovenox * CODE STATUS: Full code AM TEAM: Follow-up with pulmonology consult. Dr. Verdugo already notified Will contact her building consultant to obtain records of previous workup As Ranked By This Provider Problem List: 1. Asthma exacerbation 2. Hypoxia 3. Cryptogenic organizing pneumonia 4. TMJ (temporomandibular joint syndrome) Core Measures/Miscellaneous Acute Coronary Syndrome ACS Diagnosis: No Cerebrovascular Accident CVA/TIA Diagnosis: No Congestive Heart Failure CHF Diagnosis: No Venous Thromboembolism VTE Risk Factors: Acute medical illness No Mech VTE prophylaxis d/t: No contraindications No VTE Pharm Prophylaxis d/t: No contraindications VTE Diagnosis: No VTE Type: NONE VTE Confirmed by (Test): NONE Severe Sepsis Severe Sepsis Present: No Septic Shock Septic Shock Present: No Miscellaneous Documentation Attending Case Discussed With: JOSE ALFREDO PATRICK MD Primary Care Physician: THEODORA OCONNOR MD Patient sees these Specialists Dr. Verdugo (pulmonology) Level of Patient Care: General Medicine Consults Needed: Consulting Specialty: Pulmonary Disease Resident Review Statement Resident Statement: examined this patient, discussed with rn international, agreed with rn international, reviewed EMR data (avail), discussed with nursing, reviewed images JOSE ALFREDO PATRICK MD 07/30/16 1731: Attending Review Statement Attending Statement Attending Statement: examined this patient, discuss w/resident/PA/WAREHOUSE TEAM MEMBER, agreed w/resident/PA/WAREHOUSE TEAM MEMBER, reviewed EMR data (avail), discussed with nursing, reviewed images, amended to note Attending Assessment/Plan: The patient is a 35 yo female with h/o IBS, GERD, fibromyalgia, chronic joint pain, asthma and cryptogenic organizing pneumonia who presented in the [facility] ED with c/o severe dyspnea that has been worsening over 2 days. Stated that this began after being exposed to cold wind outside. She was noted to be hypoxemic with pulse of of 87% on RA. She has been on Prednisone 30 mg daily. The patient stated that she had seen an building consultant and testing showed multiple environmental allergies, particularly dust. She had been tapered from Prednisone 40 mg to 30 mg 2 weeks prior after seeing Dr. Verdugo. She underwent nocturnal pulse oximetry testing as an OP (device was sent out yesterday for processing). She denied any fever or sputum production. Physical Exam: VS: T 97.4, P 134 on presentation, R 26 on presentation, BP 124/90, PO 87% RA- 94% 2L HEENT: eyes- PERRLA, EOMI cristino- moist mucosa w/o lesions Neck: no adenopathy or thyromegaly Chest: moderate diffuse diminished breath sounds with mild to moderate expiratory wheeze at the time of my exam (post aerosol and IV Medrol) Cor: RRR at time of my exam (was tachy on admit), nl S1, S2 w/o murm Abd: BS+, soft, NT Ext: no edema, pulses 2+ Neuro: alert & oriented x 3, non-focal exam Labs/Tests: As above Impression/Plan: #Acute Hypoxic Respiratory Failure- secondary to asthma exacerbation. Plan: Admit to medical floor and treat above. Nasal oxygen support and follow oxygen levels closely #Acute Asthma Exacerbation- while on Prednisone 30 mg (slow taper). The patient does have eosinophilia and has had 3 recent admits for this. Has seen building consultant and may be allergic component. Dr. Verdugo has spoken about possible lung biopsy for evaluation. Plan: Admit to medical floor as above. Agree with IV Medrol/albuterol aerosol as above. Pulmonary consult Dr. Verdugo (notified by ED) Usually no role for Zitrhomax in asthma. Obtain building consultant report- and explore allergen reduction. ? consider Singulair. #GERD- on omeprazole. Plan: Continue Omeprazole. #Fibromyalgia- on Trazodone. Plan: Continue Trazodone.
[2016-07-30] MEDS ORDERED: PREDNISONE10 M2 PO (14:30)
[2016-07-30] MEDS ORDERED: SYMBICORT 16010.2 GM INH (14:30)
[2016-07-30] MEDS ORDERED: PROAIR HFA8.5 GM INH (14:31)
--- NOTE | 2016-07-30 14:46 | NUR ---
REGULAR FOOD TRAY ORDERED.
--- NOTE | 2016-07-30 15:19 | Admission Certification ---
Admission Certification Certification Statement - As attending physician, I certify that at the time of - admission, based on clinical presentation, severity of - symptoms, need for further diagnostic testing and - therapeutic interventions, and risk of adverse outcomes - without in-hospital treatment, in my clinical assessment, - this patient requires an acute hospital stay for a minimum - of two nights or longer. I have also considered psychsocial - factors such as support system, advanced age, financial - issues, cognitive issues, and failed out-patient treatments, - past re-admission history, safety of patient, and lack of - compliance as applicable. Specific rationale supporting this admission is: The patient presents with acute hypoxic respiratory failure secondary to bronchospasm/asthma exacerbation. Needs admission for IV Medrol, aerosol, oxygen (nasal) and close respiratory monitoring. Pulmonary consult- Dr. Verdugo.
--- NOTE | 2016-07-30 16:03 | NUR ---
REPORT GIVEN TO CLAUDIA PEREIRA. [facility] CALLED FOR PT TRANSPORT.
[2016-07-30 16:40] VITALS: BP 114/80
--- NOTE | 2016-07-30 17:23 | NUR ---
PATIENT ARRIVED TO FLOOR AT 1633 FROM ER, DX ASTHMA VS 98.7 88 20 114/80 97% 2L O2 A&O, INDEPENDENT, SKIN INTACT, LUNG SOUNDS DIMINISHED AT BASES, NO DISTRESS IV #20 TO LH PLACED TODAY IN ER ORIENTED TO CALL JI AND ROOM CONTINUE TO MONITOR
--- NOTE | 2016-07-30 19:01 | Cons- Pulmonary ---
General Information and HPI Consulting Request Date of Consult: 07/30/16 Requested By: Dr. Nascimento Reason for Consult: dyspnea/bronchospasm Source of Information: patient Exam Limitations: no limitations History of Present Illness: 35 year old woman with presumed cryptogenic organizing pneumonia, severe persistent asthma with bronchospasm. 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 Presented to ED after having significant worsened dyspnea. She has had worsening of her symptoms since the weekend, when she walked her dog and the wind caused her to have a significant bronchospasm that was poorly responsive to albuterol at home. Her CXR is normal, no significant laboratory abnormalities. She feels significantly better with bronchodilation and systemic steroids. No fevers, no chills, no sick contacts, no n/v/d/c. Allergies/Medications Allergies: Coded Allergies: NO KNOWN ALLERGIES (07/30/16) Home Med List: Albuterol Sulfate 2.5 MG/3 ML (0.083 %) VIAL.NEB 1 Vial INH/SXITO TID CRYPTOGENIC ORGANIZING PNUEMON (Reported) Albuterol Sulfate (Proair Hfa) 90 MCG HFA.AER.AD 2 PUF INH Q4-6 PRN PRN RESPIRATORY (Reported) Budesonide/Formoterol Fumarate (Symbicort 160-4.5 Mcg Inhaler) 160 MCG-4.5 MCG/ ACTUATION HFA.AER.AD 2 PUF INH BID SOB (Reported) Omeprazole Magnesium 20 MG CAPSULE.DR 1 CAP PO DAILY GI (Reported) Oxycodone HCl 30 MG TABLET 1 TAB PO Q4P PRN PAIN (Reported) Prednisone 10 MG TABLET 30 MG PO DAILY STEROID TAPER (Reported) Tiotropium [place] (Spiriva) 18 MCG CAP.W.DEV 1 CAP INH DAILY ASTHMA ( Reported) Trazodone HCl 50 MG TABLET 3 TAB PO QPM SLEEP (Reported) Current Medications: Current Medications Sig/Nathan Start time Last Medication Dose Route Stop Time Status Admin Acetaminophen 650 MG Q6P PRN 07/30 1500 AC PO Albuterol Sulfate 3 ML ONCE ONE 07/30 1200 DC 07/30 INH 07/30 1201 1206 Budesonide/ 2 PUF BID 07/30 2200 AC Formoterol Fumarate INH Enoxaparin Sodium 40 MG DAILY 07/31 1000 AC SC Ipratropium [place] 2.5 ML ONCE ONE 07/30 1200 DC 07/30 INH 07/30 1201 1206 Methylprednisolone 40 MG Q8 07/31 0600 AC IV Methylprednisolone 0 .STK-MED ONE 07/30 1222 DC .ROUTE Methylprednisolone 125 MG ONCE ONE 07/30 1200 DC 07/30 IV 07/30 1201 1230 Omeprazole 20 MG DAILY AC 07/31 0700 AC PO Oxycodone HCl 30 MG Q4P PRN 07/30 1830 AC 07/30 PO 1832 Oxycodone/ 1 TAB Q6P PRN 07/30 1500 DC Acetaminophen PO Oxycodone/ 2 TAB Q6P PRN 07/30 1500 DC Acetaminophen PO Trazodone HCl 150 MG QPM 07/30 2200 AC PO Review of Systems Comments 18 pt ros reviewed pertinent positives and negatives are in the chart Past History Travel History Traveled to [place] past 21 day No Medical History Blood Transfusion Hx: No Neurological: NONE EENT: TMJ arthritis s/p jaw surgery at [facility] 2010 Cardiovascular: syncope (vasovagal(has had cardio eval)) Respiratory: asthma, bronchitis, pneumonia, cRYPTOGENIC ORGANIZING Gastrointestinal: constipation (IBS), irritable bowel syndrome Hepatic: NONE Renal: NONE Musculoskeletal: fibromyalgia Psychiatric: anxiety Endocrine: NONE Blood Disorders: NONE Cancer(s): NONE MOTOR CHECKER/Reproductive: NONE Surgical History Surgical History: appendectomy, plantar wart removal jaw surgery for TMJ Family History Relations & Conditions If Any: FATHER (Asthma). FH: diabetes mellitus UNCLE-MATERNAL (BOOP). GRANDMOTHER-MATERNAL (CHF). Relation not specified for: FH: CAD (coronary artery disease) FH: HTN (hypertension) FH: ovarian cancer FH: uterine cancer Psychosocial History Where Do You Live? Home Who Do You Live With? SIGNIFICANT OTHER Services at Home: None Primary Language: Divehi Smoking Status: Never Smoked Functional Ability ADLs Independent: dressing, eating, toileting, bathing. Ambulation: independent IADLs Independent: shopping, housework, finances, food prep, telephone, transportation , medication admin. Exam & Diagnostic Data Last 24 Hrs of Vital Signs/I&O Vital Signs Date Time Temp Pulse Resp B/P Pulse O2 O2 Flow FiO2 Ox Delivery Rate 07/30 1645 97 Nasal 2.0L Cannula 07/30 1640 98.7 88 20 114/80 97 07/30 1613 97.4 104 20 117/70 95 Room Air Room Air 07/30 1331 97.1 107 18 125/71 96 07/30 1232 94 Nasal 2.0L Cannula 07/30 1206 95 Nasal 2.0L Cannula 07/30 1151 97.4 134 26 124/90 87 Room Air Intake & Output 07/30 1600 07/30 0800 07/30 0000 Intake Total Output Total Balance Patient 165 lb Weight Physical Exam Other Physical Findings: General - Alert, awake and oriented HEENT - normocephalic, atraumatic Cardiovascular - S1, S2 Lungs - rare rhonchi Abdomen - soft, bowel sounds positive, no tenderness Extremities - without edema or cyanosis Last 48 Hrs of Labs/Luke: Laboratory Tests 07/30/16 1215: Anion Gap 9, Estimated GFR > 60, BUN/Creatinine Ratio 17.1, Glucose 101 H, Calcium 9.1, Phosphorus 4.5, Magnesium 1.6, Total Bilirubin 0.9, AST 26, ALT 35, Alkaline Phosphatase 67, Troponin I < 0.01, Total Protein 6.5, Albumin 3.9, Globulin 2.6, Albumin/Globulin Ratio 1.5, Total Beta HCG NEGATIVE, CBC w Diff NO MAN DIFF REQ, RBC 4.77, MCV 83.9, MCH 28.1, RDW 13.9, MPV 7.6, Gran % 62.7, Lymphocytes % 23.1, Monocytes % 6.6, Eosinophils % 7.1 H, Basophils % 0.5, Absolute Granulocytes 6.0, Absolute Lymphocytes 2.2, Absolute Monocytes 0.6, Absolute Eosinophils 0.7, Absolute Basophils 0, PUBS MCHC 33.5 Assessment/Plan Impression/Plan: Impression 35-year-old woman with a history of asthma and cryptogenic organizing pneumonia. Here with asthma excacerbation/bronchospasm Plan -reduce solumedrol to 40mg iv q12h, plan for po steroids quickly (not to be tapered without pulmonary direction), will guide taper with you. -will repeat ct chest as an outpatient -TRC/Nebs -dvt prophylaxis at all times Consult Acknowledgment - Thank you for your consult request.
[2016-07-30 22:21] VITALS: BP 130/68
--- NOTE | 2016-07-31 07:27 | PN- Housestaff ---
GUERO CHAPARRO,[facility] 07/31/16 0727: Subjective Follow-up For: Asthma exacerbation with hypoxia History of cryptogenic organizing pneumonia on the steroid taper Subjective: Patient was seen and examined this morning. Patient endoursed that her symptoms improved significantly. On 2 L O2, reported dry cough, some muscular chest pain with coughing not radiated to neck or arm, denied papitation. She dened fever, chills. Vital signs are stable, afabrile. No overnight events. Review of Systems Constitutional: Reports: see HPI. Objective Last 24 Hrs of Vital Signs/I&O Vital Signs Date Time Temp Pulse Resp B/P Pulse O2 O2 Flow FiO2 Ox Delivery Rate 07/31 0728 96.5 60 18 114/80 95 Nasal 3.0L Cannula 07/31 0000 93 Nasal 2.0L Cannula 07/30 2221 97.2 104 19 130/68 93 / 2000 Nasal 4.0L Cannula 07/30 1645 97 Nasal 2.0L Cannula 07/30 1640 98.7 88 20 114/80 97 07/30 1613 97.4 104 20 117/70 95 Room Air Room Air 07/30 1331 97.1 107 18 125/71 96 07/30 1232 94 Nasal 2.0L Cannula 07/30 1206 95 Nasal 2.0L Cannula 07/30 1151 97.4 134 26 124/90 87 Room Air Intake & Output 07/31 1600 07/31 0800 /08 0000 Intake Total 240 600 Output Total 550 Balance 240 50 Intake, Oral 240 600 Output, Urine 550 Patient 74.843 kg Weight Physical Exam General Appearance: Alert, Oriented X3, Cooperative, No Acute Distress Skin: No Rashes, No Breakdown, No Significant Lesion HEENT: Atraumatic, PERRLA, EOMI, Mucous Membr. moist/pink Neck: Supple, No JVD Cardiovascular: Regular Rate, Normal S1, Normal S2, No Murmurs Lungs: bilateral decrease air entery with fine expiratory wheeze. Abdomen: Normal Bowel Sounds, Soft, No Tenderness Neurological: Normal Gait, Normal Speech, Strength at 5/5 X4 Ext, Normal Tone, Sensation Intact, Cranial Nerves 3-12 NL, Reflexes 2+ Extremities: No Clubbing, No Cyanosis, No Edema, Normal Pulses Assessment/Plan Assessment: Assessment: 35-year-old patient lady with a PMH of asthma, cryptogenic organizing pneumonia, multiple allergies, insomnia, IBS, fibromyalgia, chronic joint pain in setting of TMJ who presented on 07/30/16 with chief complain of persistent difficulty breathing and chest tightness for 3 days. Chest x-ray: No acute cardiopulmonary findings. Mild bibasilar atelectasis. Rapid influenza test: Negative Problem list: 1. Asthma exacerbation with hypoxia 2. History of cryptogenic organizing pneumonia on the steroid taper 3. Chronic jaw pain Plan: #Asthma exacerbation -Continue Solu-Medrol 40 mg every 12 with possible switch to oral prednisone tomorrow (with guidance from Dr. Verdugo) -Continue nebulizer -Influenza test negative and strep/Legionella antigens negative -Pulmonology consultation is on board, thanks for recommendation -Patient had recently nocturnal oximetry study, waiting for the results to be received by Dr. Verdugo -We contacted patient's allergic specialist Dr. Park ([place]) for records -Will start Singulair 10 mg daily and Claritin 1810 mg daily -CT chest and CBC as follow up outpatient studies #Chronic jaw pain -Continue oxycodone 30 mg PO Q4PRN -Regular diet -DVT prophylaxis: Lovenox -CODE STATUS: Full code -Consultation pulmonology Problem List: 1. Asthma exacerbation 2. Cryptogenic organizing pneumonia Pain Ratin Pain Location: Chronic toe pain Pain Goal: Pain 4 or less Pain Plan: oxycodone 30 mg PO Q4PRN Tomorrow's Labs & Rationales: None Consulting Request: Consulting Specialty: Pulmonary Disease JOSE ALFREDO PATRICK MD 07/31/16 2435: Attending MD Review Statement Attending Statement Attending MD Statement: examined this patient, discuss w/resident/PA/TELETRAY OPERATOR, agreed w/resident/PA/TELETRAY OPERATOR, reviewed EMR data (avail), discussed with nursing, amended to note Attending Assessment/Plan: The patient was seen and discussed with house staff. Agree with the plan of care as outlined.
[2016-07-31 07:28] VITALS: BP 114/80
--- NOTE | 2016-07-31 09:48 | PN- Pulmonary ---
Subjective HPI/Critical Care Issues: pt seen and examined doing much better wheezing resolving eosinophilia noted had a nocturnal pulse oximetry over weekend, awaiting results Objective Current Medications: Current Medications Sig/Nathan Start time Last Medication Dose Route Stop Time Status Admin Acetaminophen 650 MG Q6P PRN 07/30 1500 AC PO Albuterol Sulfate 3 ML EVERY 4 HRS/AWAKE 07/31 0800 DC INH Albuterol Sulfate 3 ML EVERY 4 HRS/AWAKE 07/31 0800 AC 07/31 INH 0823 Albuterol Sulfate 3 ML EVERY 4 HRS/AWAKE .. 07/31 0000 DC INH Albuterol Sulfate 3 ML ONCE ONE 07/30 1200 DC 07/30 INH 07/30 1201 1206 Budesonide/ 2 PUF BID 07/30 2200 AC 07/30 Formoterol Fumarate INH 2056 Enoxaparin Sodium 40 MG DAILY 07/31 1000 AC SC Ipratropium Mobile 2.5 ML ONCE ONE 07/30 1200 DC 07/30 INH 07/30 1201 1206 Loratadine 10 MG DAILY 07/31 1000 UNVr PO Methylprednisolone 40 MG Q8 07/31 06 AC 07/31 IV 0552 Methylprednisolone 0 .STK-MED ONE 07/30 1222 DC .ROUTE Methylprednisolone 125 MG ONCE ONE 07/30 1200 DC 07/30 IV 07/30 1201 1230 Montelukast Sodium 10 MG AT BEDTIME 07/31 0945 UNVr PO Omeprazole 20 MG DAILY AC 07/31 0700 AC 07/31 PO 0552 Oxycodone HCl 30 MG Q4P PRN 07/30 1830 AC 07/31 PO 0654 Oxycodone/ 1 TAB Q6P PRN 07/30 1500 DC Acetaminophen PO Oxycodone/ 2 TAB Q6P PRN 07/30 1500 DC Acetaminophen PO Trazodone HCl 150 MG QPM 07/30 2200 AC 07/30 PO 2058 Vital Signs & I&O Last 24 Hrs of Vitals and I&O: Vital Signs Date Time Temp Pulse Resp B/P Pulse O2 O2 Flow FiO2 Ox Delivery Rate 08/01 727 96.5 60 18 114/80 95 Nasal 3.0L Cannula 07/31 0000 93 Nasal 2.0L Cannula 07/30 2221 97.2 104 19 130/68 93 07/30 2000 Nasal 4.0L Cannula 07/30 1645 97 Nasal 2.0L Cannula 07/30 1640 98.7 88 20 114/80 97 07/30 1613 97.4 104 20 117/70 95 Room Air Room Air 07/30 1331 97.1 107 18 125/71 96 07/30 1232 94 Nasal 2.0L Cannula 07/30 1206 95 Nasal 2.0L Cannula 07/30 1151 97.4 134 26 124/90 87 Room Air Intake & Output 07/31 1600 07/31 0800 07/31 0000 Intake Total 240 600 Output Total 550 Balance 240 50 Intake, Oral 240 600 Output, Urine 550 Patient 165 lb Weight Exam Other Physical Findings: General - Alert, awake and oriented HEENT - normocephalic, atraumatic Cardiovascular - S1, S2 Lungs - rare rhonchi Abdomen - soft, bowel sounds positive, no tenderness Extremities - without edema or cyanosis Results Last 24 Hrs of Lab Results: Laboratory Tests 07/30/162035: Urine Color YEL, Urine Clarity CLEAR, Urine pH 6.5, Ur Specific Morrill 1.010, Urine Protein NEG, Urine Ketones NEG, Urine Nitrite NEG, Urine Bilirubin NEG, Urine Urobilinogen 0.2, Ur Leukocyte Esterase NEG, Ur Microscopic EXAM NOT REQUIRED, Urine Hemoglobin NEG, Urine Glucose >=1000 H 07/30/16 1215: Anion Gap 9, Estimated GFR > 60, BUN/Creatinine Ratio 17.1, Glucose 101 H, Calcium 9.1, Phosphorus 4.5, Magnesium 1.6, Total Bilirubin 0.9, AST 26, ALT 35, Alkaline Phosphatase 67, Troponin I < 0.01, Total Protein 6.5, Albumin 3.9, Globulin 2.6, Albumin/Globulin Ratio 1.5, Total Beta HCG NEGATIVE, CBC w Diff NO MAN DIFF REQ, RBC 4.77, MCV 83.9, MCH 28.1, RDW 13.9, MPV 7.6, Gran % 62.7, Lymphocytes % 23.1, Monocytes % 6.6, Eosinophils % 7.1 H, Basophils % 0.5, Absolute Granulocytes 6.0, Absolute Lymphocytes 2.2, Absolute Monocytes 0.6, Absolute Eosinophils 0.7, Absolute Basophils 0, PUBS MCHC 33.5 Impression/Plan Impression/Plan Impression/Plan: Impression 35-year-old woman with a history of asthma and cryptogenic organizing pneumonia. Here with asthma excacerbation/bronchospasm, eosinophilia. Plan -change solumedrol to 40mg iv q12h (not to be tapered without pulmonary direction), will guide taper with you. will likely reduce to po prednisone tomorrow with a dc plan in next 24 hrs -will repeat ct chest as an outpatient -TRC/Nebs -awaiting results of recent nocturnal oximetry -with respect to eosinophilia, will require a cbc follow up as outpt, she follows with Dr. Park ([place] [facility]), resume singulair 10mg daily -dvt prophylaxis at all times
[2016-07-31 14:46] VITALS: BP 104/68
[2016-07-31 21:52] VITALS: BP 106/68
--- NOTE | 2016-08-01 06:33 | Patient Discharge Instructions ---
Discharge Instructions General Discharge Information You were seen/treated for: Asthma exacerbation Watch for these problems: Worsening shortness of breath, chest pain, palpitations, change in color of sputum fevers or chills. Special Instructions: Please follow-up with your PCP within 1-2 weeks after discharge. Please follow-up with Dr. Verdugo at the next scheduled appointment. We started you on 2 medications for allergies. Please take them as directed. Please contact your patient accounts specialist to schedule a follow up appointment within the next 2 weeks. Diet Continue normal diet: Yes Activity Full Activity/No Limits: Yes Acute Coronary Syndrome Inclusion Criteria At DC or during hospital stay patient has or had the following: ACS DIAGNOSIS No Discharge Core Measures Meds if any: Prescribed or Continued at Discharge Meds if any: NOT Prescribed or Continued at Discharge Congestive Heart Failure Inclusion Criteria At DC or during hospital stay patient has or had the following: CHF DIAGNOSIS No Discharge Core Measures Meds if any: Prescribed or Continued at Discharge Meds if any: NOT Prescribed or Continued at Discharge Cerebrovascular accident Inclusion Criteria At DC or during hospital stay patient has or had the following: CVA/TIA Diagnosis No Discharge Core Measures Meds if any: Prescribed or Continued at Discharge Meds if any: NOT Prescribed or Continued at Discharge Venous thromboembolism Inclusion Criteria VTE Diagnosis No VTE Type NONE VTE Confirmed by (Test) NONE Discharge Core Measures - Per Current guidelines, there needs to be overlap - treatment for the first 5 days of Warfarin therapy. - If discharged on Warfarin prior to 5 days of - overlap therapy, the patient will need to be - assessed for post discharge needs including - *Post discharge parental anticoagulation - *Warfarin and/or parental anticoagulation education - *Follow up date to check INR post discharge At least 5 days overlap therapy as Inpatient No Meds if any: Prescribed or Continued at Discharge Note: Overlap Therapy is Warfarin and Anticoagulant Meds if any: NOT Prescribed or Continued at Discharge
--- NOTE | 2016-08-01 07:11 | PN- Housestaff ---
GUERO CHAPARRO,[facility] 08/01/16 0711: Subjective Follow-up For: Asthma exacerbation with hypoxia History of cryptogenic organizing pneumonia on the steroid taper Subjective: A shunt was seen and examined this morning, she reported improvement of her shortness of breath, she saturated well on room air on ambulation 97-93%. She reported improvement of her cough, may need some Mucinex to bring up the mucus. She denied any fever or chills. She reported last bowel movement 2 days ago but doesn't want any laxatives as this is her regular bowel regimen. She also reported overnight pain at her right toe and its chronic jaw pain that responded to treatment. Review of Systems Constitutional: Reports: see HPI. Objective Last 24 Hrs of Vital Signs/I&O Vital Signs Date Time Temp Pulse Resp B/P Pulse O2 O2 Flow FiO2 Ox Delivery Rate 08/01 1429 98.2 100 18 116/82 92 Room Air 08/01 0814 94 Room Air 08/01 0813 93 Room Air 08/01 0810 16 93 Room Air 08/01 0810 16 93 Room Air 08/01 0806 16 94 Room Air 08/01 0716 96.2 86 18 120/82 96 Nasal 2.0L Cannula 08/01 0000 Nasal 2.0L Cannula 07/31 2152 98.1 89 20 106/68 95 Nasal 2.0L Cannula 07/31 1650 97 Nasal 2.0L Cannula 07/31 1600 92 Nasal 2.0L Cannula Intake & Output 08/01 1600 08/01 0800 08/01 0000 Intake Total 910 800 Output Total Balance 910 800 Intake, IV 10 Intake, Oral 900 800 Number 0 Bowel Movements Physical Exam General Appearance: Alert, Oriented X3, Cooperative, No Acute Distress Skin: No Rashes, No Breakdown, No Significant Lesion HEENT: Atraumatic, PERRLA, EOMI, Mucous Membr. moist/pink Neck: Supple Cardiovascular: Regular Rate, Normal S1, Normal S2, No Murmurs Lungs: Clear to Auscultation, Normal Air Movement Abdomen: Normal Bowel Sounds, Soft, No Tenderness Neurological: Normal Gait, Normal Speech, Strength at 5/5 X4 Ext, Normal Tone, Sensation Intact, Cranial Nerves 3-12 NL, Reflexes 2+ Extremities: No Clubbing, No Cyanosis, No Edema, Normal Pulses Assessment/Plan Assessment: Assessment: 35-year-old patient lady with a PMH of asthma, cryptogenic organizing pneumonia, multiple allergies, insomnia, IBS, fibromyalgia, chronic joint pain in setting of TMJ who presented on 07/30/16 with chief complain of persistent difficulty breathing and chest tightness for 3 days. Chest x-ray: No acute cardiopulmonary findings. Mild bibasilar atelectasis. Rapid influenza test: Negative Problem list: 1. Asthma exacerbation with hypoxia 2. History of cryptogenic organizing pneumonia on the steroid taper 3. Chronic jaw pain Plan: #Asthma exacerbation -Discontinue Solu-Medrol and start prednisone 30 mg without taper (patient will follow up with Dr. Verdugo after discharge for steroid tapering) -Continue nebulizer -Influenza test negative and strep/Legionella antigens negative -Pulmonology consultation is on board, thanks for recommendation -Patient had recently nocturnal oximetry study, waiting for the results to be received by Dr. Verdugo -We contacted patient's allergic specialist Dr. Park ([place]) for records -Continue Singulair 10 mg daily and Claritin 1810 mg daily -CT chest and CBC as follow up outpatient studies -Patient is for discharge today #Chronic jaw pain -Continue oxycodone 30 mg PO Q4PRN -Regular diet -DVT prophylaxis: Lovenox -CODE STATUS: Full code -Consultation pulmonology Problem List: 1. Asthma exacerbation Pain Ratin Pain Location: Jaw pain Pain Goal: Pain 4 or less Pain Plan: oxycodone 30 mg PO Q4PRN Tomorrow's Labs & Rationales: None Consulting Request: Consulting Specialty: Pulmonary Disease JOSE ALFREDO PATRICK MD 08/01/16 9091: Attending MD Review Statement Attending Statement Attending MD Statement: examined this patient, discuss w/resident/PA/VENEER PULLER, agreed w/resident/PA/VENEER PULLER, reviewed EMR data (avail), discussed with nursing, amended to note Attending Assessment/Plan: The patient was seen and discussed with house staff. Agree with the plan of care as outlined.
[2016-08-01 07:16] VITALS: BP 120/82
--- NOTE | 2016-08-01 08:11 | NUR ---
NURSING NOTE: PT RESTING IN BED; 94% O2 ON ROOM AIR. PT AMBULATED IN HALLWAY ON ROOM AIR, O2 SATS REMAIN 93%, PT DENIED SOB, STEADY GAIT NOTED. PT SETTLED BACK INTO BED, 93% O2 ON ROOM AIR. PT DENIES DISTRESS. 156 MADE AWARE. CONT TO MONITOR.
--- NOTE | 2016-08-01 11:38 | PN- Pulmonary ---
Subjective HPI/Critical Care Issues: pt seen and examined feeling better no events no n/v/d/c Objective Current Medications: Current Medications Sig/Nathan Start time Last Medication Dose Route Stop Time Status Admin Acetaminophen 650 MG Q6P PRN 07/30 1500 AC PO Albuterol Sulfate 3 ML EVERY 4 HRS/AWAKE 07/31 0800 AC 08/01 INH 0812 Budesonide/ 2 PUF BID 07/30 2200 AC 08/01 Formoterol Fumarate INH 1130 Enoxaparin Sodium 40 MG DAILY 07/31 1000 AC 08/01 SC 1129 Loratadine 10 MG DAILY 07/31 1000 AC 08/01 PO 1129 Methylprednisolone 40 MG 0600,1800 07/31 1800 AC 08/01 IV 0558 Methylprednisolone 40 MG Q8 07/31 0600 DC 07/31 IV 0552 Montelukast Sodium 10 MG AT BEDTIME 07/31 2200 AC 07/31 PO 2126 Omeprazole 20 MG DAILY AC 07/31 0700 AC 08/01 PO 0558 Ondansetron HCl 4 MG ONCE ONE 08/01 0230 DC 08/01 IV 08/01 0231 0233 Oxycodone HCl 30 MG Q4P PRN 07/30 1830 AC 08/01 PO 1125 Patient Medication 1 ED .STK-MED ONE 07/31 1345 DC Teaching ED 07/31 1346 Trazodone HCl 150 MG QPM 07/30 2200 AC 07/31 PO 2126 Vital Signs & I&O Last 24 Hrs of Vitals and I&O: Vital Signs Date Time Temp Pulse Resp B/P Pulse O2 O2 Flow FiO2 Ox Delivery Rate 08/01 813 94 Room Air 08/01 812 93 Room Air 08/01 809 16 93 Room Air 08/02 0710 16 93 Room Air 08/01 805 16 94 Room Air 08/01 0716 96.2 86 18 120/82 96 Nasal 2.0L Cannula 08/01 0000 Nasal 2.0L Cannula 07/31 2152 98.1 89 20 106/68 95 Nasal 2.0L Cannula 07/31 1650 97 Nasal 2.0L Cannula 07/31 1600 92 Nasal 2.0L Cannula 07/31 1446 97.8 93 20 104/68 92 Nasal 2.0L Cannula Intake & Output 08/01 1600 08/01 0800 08/01 0000 Intake Total 800 Output Total Balance 800 Intake, Oral 800 Exam Other Physical Findings: General - Alert, awake and oriented HEENT - normocephalic, atraumatic Cardiovascular - S1, S2 Lungs - rare rhonchi Abdomen - soft, bowel sounds positive, no tenderness Extremities - without edema or cyanosis Impression/Plan Impression/Plan Impression/Plan: Impression 35-year-old woman with a history of asthma and cryptogenic organizing pneumonia. Here with asthma excacerbation/bronchospasm, eosinophilia. Plan -dc home -dc solumedrol -prednisone 30mg without a taper, to see me in office -will repeat ct chest as an outpatient -TRC/Nebs -awaiting results of recent nocturnal oximetry -with respect to eosinophilia, will require a cbc follow up as outpt, she follows with Dr. Park (Cosmetician/[place]), resume singulair 10mg daily -dvt prophylaxis at all times
[2016-08-01] MEDS ORDERED: ZYRTEC10 M3 PO (14:09)
[2016-08-01] MEDS ORDERED: MONTELUKAST SOD10 M1 PO (14:10)
--- NOTE | 2016-08-01 14:12 | Discharge Summary ---
Visit Information Visit Dates Admission Date: 07/30/16 Discharge Date: 08/01/16 Hospital Course Course Attending Physician: JOSE ALFREDO PATRICK MD Primary Care Physician: ELVIN CHAPARRO,THEODORA Mehta Consulting Request: Consulting Specialty: Pulmonary Disease Hospital Course: Ms. Vásquez is a 35 year old female with past medical history significant for asthma, cryptogenic organizing pneumonia, insomnia, IBS, fibromyalgia, chronic joint pain in setting of TMJ who presented on 07/30/16 with chief complaint of persistent difficulty breathing for 2 days. Patient reported that her symptoms started on Friday 2 days prior to admission, specifically after she took her dog in a walk outside in the cool air. She reports that since then she has been experiencing chest tightness and difficulty with deep inspiration. Despite using her pro-air and nebulizer treatment symptoms have persisted, she also reported drop in her saturation to 84% on room air on that night in association with wheeze and mild sore throat. Positive history of sick contact. Patient has had multiple admissions because of asthma exacerbation, she follows up with Dr. Verdugo with her last visit 2 weeks ago when her prednisone was decreased from 40 mg to 30 mg daily. She underwent a 24-hour nocturnal pulse oximetry study and mailed out the device to the [employer] yesterday. ROS: She denies any fevers, chills, palpitations, nausea, vomiting, changes in bowel/bladder habits. VS: BP 124/90, HR 134, RR 26, SPO2 87% on 2L, T 97.4 Physical Exam: VS: T 97.4, P 134 on presentation, R 26 on presentation, BP 124/90, PO 87% RA- 94% 2L HEENT: eyes- PERRLA, EOMI cristino- moist mucosa w/o lesions Neck: no adenopathy or thyromegaly Chest: moderate diffuse diminished breath sounds with mild to moderate expiratory wheeze at the time of my exam (post aerosol and IV Medrol) Cor: RRR at time of my exam (was tachy on admit), nl S1, S2 w/o murm Abd: BS+, soft, NT Ext: no edema, pulses 2+ Neuro: alert & oriented x 3, non-focal exam Pertinent labs: WBC 9.5 with 7.1% eosinophilia, H&H 13.4/40.0, potassium, bicarbonate 28, BUN/Cr 12/0.7 Chest x-ray: No acute cardiopulmonary findings. Mild bibasilar atelectasis. Rapid influenza test: Negative Assessment: 35-year-old patient lady with a PMH of asthma, cryptogenic organizing pneumonia, multiple allergies, insomnia, IBS, fibromyalgia, chronic joint pain in setting of TMJ who presented on 07/30/16 with chief complain of persistent difficulty breathing and chest tightness for 3 days. Problem list: 1. Asthma exacerbation with hypoxia 2. History of cryptogenic organizing pneumonia on the steroid taper 3. Chronic jaw pain Plan: #Asthma exacerbation -Patient was started on Solu-Medrol for 40mg every 12 and switched to prednisone 30 mg without taper (patient will follow up with Dr. Verdugo after discharge for steroid tapering) -TRC and nebulizer -Influenza test negative and strep/Legionella antigens negative -Pulmonology consultation is on board, thanks for recommendation -Patient had recently nocturnal oximetry study, waiting for the results to be received by Dr. Verdugo -We contacted patient's allergic specialist Dr. Park ([place]) for records, still pending -Singulair 10 mg daily and Claritin 1810 mg daily -CT chest and CBC as follow up outpatient studies #Chronic jaw pain -Continue oxycodone 30 mg PO Q4PRN -Regular diet -DVT prophylaxis: Lovenox -CODE STATUS: Full code -Consultation pulmonology Allergies: Coded Allergies: NO KNOWN ALLERGIES (07/30/16) Disposition Summary Disposition Principal Diagnosis: Asthma exacerbation Additional Diagnosis: Esinophilia mostly allergic related Discharge Disposition: home or self care Discharge Instructions General Discharge Information Code Status: Full Code Patient's Diet: Regular diet Patient's Activity: As tolerated Follow-Up Instructions/Appts: -Please follow-up with your PCP within 1-2 weeks after discharge. -Please follow-up with Dr. Verdugo at the next scheduled appointment. -We started you on 2 medications for allergies. Please take them as directed. -Please contact your locator specialist to schedule a follow up appointment within the next 2 weeks. -Patient was given a lab split for CBC to follow up on esinophilia. Medications at Discharge Discharge Medications: Continue taking these medications: Tiotropium [place] (Spiriva) 18 MCG CAP.W.DEV 1 Capsule Inhale through mouth DAILY Comments: NOT GIVEN IN HOSPITAL Trazodone HCl (Trazodone HCl) 50 MG TABLET 3 Tablet ORAL Every night Qty = 30 Comments: Last Taken: 08/01/16 Time: 2200 PM Oxycodone HCl (Oxycodone HCl) 30 MG TABLET 1 Tablet ORAL EVERY 4 HOURS NEEDED as needed for PAIN Comments: Last Taken: 08/01/16 Time: 3:30PM Albuterol Sulfate (Albuterol Sulfate) 2.5 MG/3 ML (0.083 %) VIAL.NEB 1 Vial Inhale Solution THREE TIMES DAILY Qty = 270 Comments: NOT GIVEN IN HOSPITAL Omeprazole Magnesium (Omeprazole Magnesium) 20 MG CAPSULE.DR 1 Capsule ORAL DAILY Qty = 14 Comments: Last Taken: 08/01/16 Time: 0600 AM Prednisone (Prednisone) 10 MG TABLET 30 Milligram ORAL DAILY Qty = 20 Comments: NOT GIVEN IN HOSPITAL Budesonide/Formoterol Fumarate (Symbicort 160-4.5 Mcg Inhaler) 160 MCG-4.5 MCG/ ACTUATION HFA.AER.AD 2 Puff Inhale through mouth TWICE DAILY Comments: Last Taken: 08/01/16 Time: 1130AM Albuterol Sulfate (Proair Hfa) 90 MCG HFA.AER.AD 2 Puff Inhale through mouth EVERY 4-6 HOURS NEEDED as needed for RESPIRATORY Comments: NOT GIVEN IN HOSPITAL Start taking the following new medications: Cetirizine HCl (Zyrtec) 10 MG TABLET 1 Tablet ORAL AT BEDTIME Qty = 30 No Refills Instructions: INSTRUCTED Montelukast Sodium (Montelukast Sodium) 10 MG TABLET 1 Tablet ORAL AT BEDTIME Qty = 30 No Refills Instructions: INSTRUCTED Copies To: ANGEL VERDUGO MD Attending MD Review Statement Documenting Attending: JOSE ALFREDO PATRICK MD Other Findings: The patient was seen and discussed with house staff. Agree with the plan of care as outlined. Copies To: ANGEL VERDUGO MD
--- NOTE | 2016-08-01 14:18 | NUR ---
NURSING NOTE: PT STATES "MY JAW LOCKED AND WHEN IT POPPED BACK, PART OF MY TOOTH BROKE OFF AND I SWALLOWED IT." 188 MADE AWARE. TYLENOL GIVEN PER MD ORDERS. PT IN NO ACUTE DISTRESS, INSTRUCTED TO REPORT ANY CHEST OR STOMACH PAIN. PT VOICED UNDERSTANDING. CONTINUE TO MONITOR.
[2016-08-01 14:29] VITALS: BP 116/82
--- NOTE | 2016-08-01 15:56 | NUR ---
NURSING NOTE; CMR NOT FINALIZING IN COMPUTER. UNABLE TO PRINT RED. PT ANXIOUS TO LEAVE, UNWILLING TO WAIT, ELECTRONIC SCRIPTS DID NOT TRANSMIT TO PHARMACY, HARD COPY SCRIPTS GIVEN TO PT. DISCHARGED AT 1558
== END 2016-08-01 15:58 | DRG 141 ==
LOC: ENRESERVDT → ENRESERVTM → ERH 11:46 → 2NB 13:55 → ERHI 13:55 → ENPENDDIS 13:55 → 2NB 16:30
PROVIDERS: Physician Assistant Medical; ADMIT Internal Medicine
DX: J45.901 Unspecified asthma with (acute) exacerbation (principal); J84.116 Cryptogenic organizing pneumonia; J96.01 Acute respiratory failure with hypoxia; M26.629 Arthralgia of temporomandibular joint, unspecified side; K58.9 Irritable bowel syndrome, unspecified; M79.7 Fibromyalgia
CPT/HCPCS: 2NBSP; 81003; 87086; 87449; 87450; 87804; 87804-59; 93005; 93010; 96374; J1650; J2405; J2920; J2930; J3490; J7512

== ENCOUNTER 2016-08-20 11:39 | Observation (INO) | payer OTHER ==
[~2016-08-20] VITALS: Ht 157.5 cm; Wt 72.6 kg
[~2016-08-20 11:39] MED LIST changes: +PROAIR HFA8.5 GM INH; +SYMBICORT 16010.2 GM INH
--- NOTE | 2016-08-20 11:48 | NUR ---
PT TO ED FOR C/O SOB. STATES SHE WAS JUST IN DR GAMBLE'S OFFICE AND WAS SENT DOWN TO R/O PE. PT WAS HYPERTENSIVE, TACHY AND HAD LOW 02 SAT'S IN HIS OFFICE. PT C/O NAUSEA AND "FEELS FAINT". DENIES ANY PAIN. RA SATS 92%. BP 109/73, HEARTRATE 142.
--- NOTE | 2016-08-20 11:57 | ED GENERAL ADULT ---
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 Source: patient, old records Exam Limitations: no limitations Vital Signs & Intake/Output Vital Signs & Intake/Output Vital Signs Date Time Temp Pulse Resp B/P Pulse O2 O2 Flow FiO2 Ox Delivery Rate 08/20 1856 98.7 85 20 107/68 95 Nasal 2.5L Cannula 08/20 1721 96.5 97 18 94/60 96 Nasal 2.0L Cannula 08/20 1601 85 18 107/56 94 Nasal 2.0L Cannula 08/20 1404 118 18 119/60 93 Room Air 08/20 1400 Nasal 2.0L Cannula 08/20 1212 96 Nasal 2.5L Cannula 08/20 1145 99.6 144 20 109/73 92 Room Air Allergies Coded Allergies: NO KNOWN ALLERGIES (07/30/16) Reconcile Medications Albuterol Sulfate 2.5 MG/3 ML (0.083 %) VIAL.NEB 1 Vial INH/SIXTO TID CRYPTOGENIC ORGANIZING PNUEMON (Reported) Albuterol Sulfate (Proair Hfa) 90 MCG HFA.AER.AD 2 PUF INH Q4-6 PRN PRN RESPIRATORY (Reported) Budesonide/Formoterol Fumarate (Symbicort 160-4.5 Mcg Inhaler) 160 MCG-4.5 MCG/ ACTUATION HFA.AER.AD 2 PUF INH BID SOB (Reported) Cetirizine HCl (Zyrtec) 10 MG TABLET 1 TAB PO AT BEDTIME Allergies INSTRUCTED Montelukast Sodium 10 MG TABLET 1 TAB PO AT BEDTIME Allergies INSTRUCTED Omeprazole Magnesium 20 MG CAPSULE.DR 1 CAP PO DAILY GI (Reported) Oxycodone HCl 30 MG TABLET 1 TAB PO Q4P PRN PAIN (Reported) Prednisone 10 MG TABLET 30 MG PO DAILY ASTHMA (Reported) Tiotropium [place] (Spiriva) 18 MCG CAP.W.DEV 1 CAP INH DAILY ASTHMA ( Reported) Trazodone HCl 50 MG TABLET 3 TAB PO QPM SLEEP (Reported) Triage Note: PT TO ED FOR C/O SOB. STATES SHE WAS JUST IN DR GAMBLE'S OFFICE AND WAS SENT DOWN TO R/O PE. PT WAS HYPERTENSIVE, TACHY AND HAD LOW 02 SAT'S IN HIS OFFICE. PT C/O NAUSEA AND "FEELS FAINT". DENIES ANY PAIN. RA SATS 92%. BP 109/73, HEARTRATE 142. Triage Nurses Notes Reviewed? yes Onset: Gradual Duration: day(s): (3) Timing: recent history Injury Environment: home Severity: moderate Severity Numbers: 8 Modifying Factors: Improves With: immobilization. : No Patient currently breastfeeds: No HPI: Patient is a 35-year-old female with history of cryptogenic organizing pneumonia and reports that she is in the hospital every 3-4 weeks for an exacerbation of her asthma. She reports that she noticed some increasing shortness of breath, nonproductive cough, malaise worsening over the past 3 days. She just got out of the hospital about 3 weeks ago. She was seeing her retail event assistant today in office and he did not like her vital signs and sent her to the emergency department for evaluation to rule out pulmonary embolus. Patient denying any lower extremity swelling. No recent travel. Positive nausea without vomiting. Reports increasing shortness of breath with exertion. No chest pain or palpitations. She's been using her inhalers at home without relief. (RAFI BEGUM) Past History Travel History Traveled to [place] past 21 day No Medical History Any Pertinent Medical History? see below for history Neurological: NONE EENT: TMJ arthritis s/p jaw surgery at [facility] 2010 Cardiovascular: syncope (vasovagal(has had cardio eval)) Respiratory: asthma, bronchitis, pneumonia, cRYPTOGENIC ORGANIZING Gastrointestinal: constipation (IBS), irritable bowel syndrome Hepatic: NONE Renal: NONE Musculoskeletal: fibromyalgia Psychiatric: anxiety Endocrine: NONE Blood Disorders: NONE Cancer(s): NONE METAL PLATER/Reproductive: NONE History of MRSA: No History of VRE: No History of CDIFF: No Influenza Vaccine: 01/18/16 Surgical History Surgical History: appendectomy, plantar wart removal jaw surgery for TMJ Psychosocial History Who do you live with Significant Other Services at Home None What is your primary language Indonesian Tobacco Use: Never used ETOH Use: denies use Illicit Drug Use: denies illicit drug use Family History Family History, If Any: FATHER (Asthma). FH: diabetes mellitus UNCLE-MATERNAL (BOOP). GRANDMOTHER-MATERNAL (CHF). Relation not specified for: FH: CAD (coronary artery disease) FH: HTN (hypertension) FH: ovarian cancer FH: uterine cancer Hx Contributory? Yes (RAFI EBGUM) Review of Systems Review of Systems Constitutional: Reports: malaise. Comments Review of systems: See HPI, All other systems negative. Constitutional, no chills fever or weight loss HEENT: No visual changes no sore throat Cardiovascular: No chest pain ,palpitation , orthopnea or ankle swelling Skin, no jaundice no rashes Respiratory: No sputum or hemoptysis GI: No nausea no vomiting : No dysuria No hematuria Muscle skeletal: no back pain, no neck pain, Neurologic: No numbness no confusion Psych: No stress anxiety or depression,. Heme/endocrine: No bruising no bleeding no polyuria or polydipsia Immunology: No splenectomy or history of AIDS (RAFI BEGUM) Physical Exam Physical Exam General Appearance: well developed/nourished, alert, awake, mild distress Comments: Well-developed well-nourished person in no acute distress HEENT: . Pupils equally round and reactive to light and accommodation. Nose is atraumatic. External auditory canal and Tympanic membranes clear. Pharynx normal. No swelling or edema. Neck: Supple, no lymphadenopathy, normal range of motion without pain or tenderness Back: Nontender Cardiovascular: Regular rate and rhythms no murmurs rubs or gallops, normal JVP Respiratory: Chest nontender. No respiratory distress.diffuse wheezing to auscultation bilaterally Extremity: No edema, no calf tenderness to palpation, normal and equal pulses. Neuro: Alert oriented x3 Skin: No appreciable rash on exposed skin, skin is warm and dry. Psych: Mood and affect is normal, memory and judgment is normal. Core Measures ACS in differential dx? Yes CVA/TIA Diagnosis: No Severe Sepsis Present: No Septic Shock Present: No (RAFI BEGUM) Progress Differential Diagnoses I considered the following diagnoses in my evaluation of the patient: Asthma exacerbation, exacerbation of cryptogenic obliterating pneumonia, PE, ACS, bronchitis, viral syndrome Plan of Care: Orders Procedure Date/time Status Anticipated Discharge 08/21 0800 Active CBC WITHOUT DIFFERENTIAL 08/21 0600 Active Regular Diet 08/20 D Active Teach/Educate 08/20 185 Active Pain Treatment and Response 08/20 185 Active Nutritional Intake, Monitor 08/20 185 Active Isolation 08/20 185 Active Patient Care Conference 08/20 185 Active Activity/Ambulation 08/[address] in observation 08/20 1745 Active Add-on Test (ER Only) 08/20 1536 Active ECHOCARDIOGRAM 08/20 1523 Active TRC EVALUATION (GEN) 08/20 1521 Active Pathway - chart 08/20 1521 Active House Staff 08/20 1521 Active Patient Data 08/20 1521 Active STREP PNEUMO URINARY ANTIGEN 08/20 1521 Complete LEGIONELLA URINARY ANTIGEN 08/20 1521 Complete LOWER RESPIRATORY CULTURE 08/20 1521 Active URINALYSIS 08/20 1521 Complete Code Status 08/20 1521 Active ED Holding Orders 08/20 1520 Active Vital Signs 08/20 1520 Active Code Status 08/20 1520 Complete RAPID VIRAL INFLUENZA A 08/20 1451 Complete Patient Data 08/20 1444 Active Intake & Output 08/20 1254 Active Add-on Test (ER Only) 08/20 1221 Active THYROID STIMULATING HORMONE 08/20 1206 Complete MAGNESIUM 08/20 1206 Complete FREE T4 08/20 1206 Complete B-TYPE NATRIURETIC PEP (BNP) 08/20 1206 Complete BLOOD CULTURE 08/20 1201 Active TROPONIN LEVEL 08/20 1156 Complete PARTIAL THROMBOPLASTIN TIME 08/20 1156 Complete PROTHROMBIN TIME 08/20 1156 Complete HUMAN BETA HCG SCREEN 08/20 1156 Complete COMPREHENSIVE METABOLIC PANEL 08/20 1156 Complete CBC WITHOUT DIFFERENTIAL 08/20 1156 Complete EKG 08/20 1156 Active VTE Mechanical Prophylaxis 08/20 UNK Active Vital Signs 08/20 UNK Active MISTAKE 08/20 UNK Active Telemetry/Industrial Illuminating Engineer 08/20 UNK Active Current Medications Sig/Nathan Start time Last Medication Dose Stop Time Status Admin Loratadine 10 MG DAILY 08/21 1000 AC (Claritin) Tiotropium [place] 1 PUF DAILY 08/21 1000 AC (Spiriva) Omeprazole 20 MG DAILY AC 08/21 0700 AC (Prilosec) Budesonide/ 2 PUF BID 08/20 2200 AC Formoterol Fumarate (Symbicort) Heparin Sodium 5,000 UNIT Q8 08/20 2200 AC (Porcine) Methylprednisolone 40 MG Q12 08/20 2200 AC (Solumedrol) Montelukast Sodium 10 MG AT BEDTIME 08/20 2200 AC (Singulair) Trazodone HCl 150 MG QPM 08/20 2200 AC (Desyrel) Albuterol Sulfate 2 PUF Q4-6 PRN PRN 08/20 1530 AC (Ventolin) Ondansetron HCl 4 MG Q6P PRN 08/20 1530 AC (Zofran) Laboratory Tests 08/20/16 1750: Urine Color YEL, Urine Clarity CLEAR, Urine pH 8.0, Ur Specific [place] <= 1.005 , Urine Protein NEG, Urine Ketones NEG, Urine Nitrite NEG, Urine Bilirubin NEG, Urine Urobilinogen 0.2, Ur Leukocyte Esterase NEG, Ur Microscopic EXAM NOT REQUIRED, Urine Hemoglobin NEG, Urine Glucose NEG 08/20/16 1206: Anion Gap 9, Estimated GFR > 60, BUN/Creatinine Ratio 10.0, Glucose 91, Calcium 9.2, Magnesium 1.6, Total Bilirubin 0.7, AST 20, ALT 35, Alkaline Phosphatase 83 , Troponin I < 0.01, Jwy-X-Gblvbueexzx Pept 52.9, Total Protein 6.8, Albumin 4.0 , Globulin 2.8, Albumin/Globulin Ratio 1.4, TSH 1.710, Free T4 0.98, Total Beta HCG NEGATIVE, PT 12.0, INR 1.14, APTT 39 H, CBC w Diff MAN DIFF ORDERED, RBC 4.92, MCV 82.3, MCH 28.0, RDW 13.6, MPV 8.0, Gran % 78.0 H, Lymphocytes % 12.8 L, Monocytes % 4.8, Eosinophils % 3.8, Basophils % 0.6, Absolute Granulocytes 13.1 H, Absolute Lymphocytes 2.2, Absolute Monocytes 0.8 H, Absolute Eosinophils 0.6, Absolute Basophils 0.1, Platelet Estimate VERIFIED BY SMEAR, Anisocytosis 1+, PUBS MCHC 34.0 Microbiology 08/20 175 URINE ROUT: Legionella Antigen - COMP 08/20 175 URINE ROUT: Streptococcus pneumoniae Antigen (M - COMP 08/20 1557 NASOPHARYN: Influenza Virus A & B Rapid Smear - COMP 08/20 1521 LOWER RESP: Respiratory Culture - ORD 08/20 1521 LOWER RESP: Gram Stain - ORD 08/20 1230 BLOOD: Blood Culture - RECD 08/20 1221 BLOOD: Blood Culture - RECD Diagnostic Imaging: Viewed by Me: CT Scan. Discussed w/RAD: CT Scan. Radiology Impression: Total exam dose-length product 509 mGy-cm. FINDINGS: QUALITY OF STUDY/CONTRAST BOLUS: Satisfactory PULMONARY ARTERIES: No central or segmental pulmonary emboli. THORACIC AORTA: No aneurysm or dissection. LUNG: The central airways are patent. There is improvement of the previous groundglass opacities seen throughout both lungs. There is new nodular consolidative opacity in the superior segment of the left lower lobe with additional groundglass opacities also seen at the left base. There is near complete resolution of the remaining groundglass opacities. Mild bronchial wall thickening persists. PLEURA : No pleural effusion or pneumothorax. MEDIASTINUM: Normal heart size. No pericardial effusion. No hilar or mediastinal lymphadenopathy. Stable subcarinal lymph node. No evidence of septal bowing or right heart strain. CHEST WALL/ AXILLA: No axillary or internal mammary lymphadenopathy. OSSEOUS STRUCTURES: No acute or suspicious osseous abnormality. UPPER ABDOMEN: Unremarkable. No reflux of contrast into the hepatic veins to suggest elevated right heart pressures. IMPRESSION: 1. No pulmonary embolism. 2. Significant improvement of the multifocal groundglass opacities with septal thickening throughout both lungs. There is residual groundglass opacity at the left lung base with new nodular consolidation in the superior segment of the left lower lobe. These findings are again suspicious for pneumonia. VTE: negative Initial ED EKG: SINUS TACHYCARDIA Comments: Patient given a DuoNeb treatment on arrival. Also given dose of IV Solu-Medrol. Patient was pretty tachycardic. Cannot perk are negative of the lungs have diffuse wheezing. Patient will have CTA. Patient informed of CT results. No signs of pulmonary embolus. Patient will be admitted for exacerbation of cryptogenic pneumonia. IV site measure 40 mg twice a day recommended by pulmonology. Recommending observation admission for tachycardia and steroids. H&H and is resting comfortably. In no acute distress. (RAFI BEGUM) Differential Diagnoses I considered the following diagnoses in my evaluation of the patient: (PADMA RUSSELL,SARAY Sanabria) Departure Departure Time of Disposition: 1428 Disposition: STILL A PATIENT Condition: Stable Clinical Impression Primary Impression: Cryptogenic organizing pneumonia Secondary Impressions: Tachycardia Referrals: ELVIN CHAPARRO,THEODORA Mehta (PCP/Family) Departure Forms: Customer Survey General Discharge Information Observation Note Spoke With: AUGUSTINE CHAPARRO,LANDRY Physician Advisor Notified: ZEUS CHAPARRO,MINA [address] Patient In: Non-ED OBS Care Area Rationale for Observation: My rational for observation is as follows . Patient requiring supplemental oxygen, pulmonology consultation, telemetry monitoring for tachycardia, IV Solu- Medrol to 40 mg twice a day, serial DuoNeb treatment. Requiring more oxygen than patient's baseline. Titration of oxygen will be needed. (RAFI BEGUM) Observation Note Rationale for Observation: My rational for observation is as follows . PA/ACQUISITION EDITOR Co-Sign Statement Statement: ED Attending supervision documentation- [X] I saw and evaluated the patient. I have also reviewed all the pertinent lab results and diagnostic results. I agree with the findings and the plan of care as documented in the PA's/ACQUISITION EDITOR's documentation. [] I have reviewed the ED Record and agree with the PA's/ACQUISITION EDITOR's documentation. [] Additions or exceptions (if any) to the PAs/ACQUISITION EDITOR's note and plan are summarized below: [] 08/20/16 2:30 PM The patient was seen and evaluated by me. I agree with the PAs evaluation. Lungs revealed poor air entry on my exam, she is awake alert and oriented 3. She was placed in observation, IV steroids, pulmonary consultation. (PADMA RUSSELL,SARAY Sanabria) Critical Care Note Critical Care Note Critical Care Time: 30-74 min (RAFI BEUGM)
--- NOTE | 2016-08-20 12:08 | NUR ---
PT TO ROOM 21 FOR HARJEET SUAREZ AT BEDSIDE. EKG DONE, PT PLACED ON INSTRUCTIONAL INTERVENTIONIST AND 2L OF O2 VIA NC FOR LOW O2 SAT ON RA . LABS DRAWN AND SENT. 20G IV PLACED TO RAC FOR CTA
[2016-08-20 12:17] LABS: ABSOLUTE BASOPHIL COUNT 0.1 /CUMM (0.0-0.2); ABSOLUTE EOSINOPHIL COUNT 0.6 /CUMM (0.0-0.7); ABSOLUTE GRANULOCYTE CT 13.1 /CUMM (1.4-6.5); ABSOLUTE LYMPH COUNT 2.2 /CUMM (1.2-3.4); ABSOLUTE MONOCYTE COUNT 0.8 /CUMM (0.10-0.60); BASOPHIL % 0.6 % (0.0-2.0); EOSINOPHIL % 3.8 % (0-5); HEMATOCRIT 40.5 % (37-47); MEAN CORPUSCULAR VOLUME 82.3 FL (81.0-99.0); PLATELET COUNT 260 /CUMM (130-400); RBC DISTRIBUTION WIDTH 13.6 % (11.5-14.5); RED BLOOD CELL CT 4.92 /CUMM (4.20-5.40); WHITE BLOOD CELL COUNT 16.8 /CUMM (4.8-10.8)
--- NOTE | 2016-08-20 12:24 | NUR ---
1ST SET BC SENT
[2016-08-20 12:25] LABS: PTT 39 SEC (25-37)
--- NOTE | 2016-08-20 12:53 | NUR ---
PT SITTING UP IN BED, CHECKING CELL PHONE TEXTS. COMPLAINING OF HEADACHE, NAUSEA AND DRY MOUTH. GIVEN SOLUMEDROL IV
--- NOTE | 2016-08-20 13:02 | NUR ---
PT UP TO BATHROOM DUE TO NAUSEA
--- NOTE | 2016-08-20 13:06 | NUR ---
MEDICATED FOR NAUSEA AND TAKEN TO CT SCAN. REMAINS TACHYCARDIC WITH HEART RATE 124
--- NOTE | 2016-08-20 13:41 | CT SCAN REPORT ---
EXAMINATION: CT ANGIOGRAM OF THE CHEST WITH AND WITHOUT CONTRAST (CT PULMONARY ANGIOGRAM FOR PE) CLINICAL INFORMATION: Shortness of breath. Rule out pulmonary embolism. COMPARISON: Chest radiograph from 07/30/2016. Multiple priors, most recently CTA from 06/28/2016. TECHNIQUE: Prior to contrast administration, noncontrast localization images were obtained. Subsequently, multidetector volumetric imaging was performed from the thoracic inlet to below the diaphragms following the administration of 100 mL Optiray 350 intravenous contrast. No contrast reaction reported. Sagittal, coronal, and MIP oblique sagittal reformatted images were obtained on the CT workstation, uploaded to PACS, and reviewed. Total exam dose-length product 509 mGy-cm. FINDINGS: QUALITY OF STUDY/CONTRAST BOLUS: Satisfactory PULMONARY ARTERIES: No central or segmental pulmonary emboli. THORACIC AORTA: No aneurysm or dissection. LUNG: The central airways are patent. There is improvement of the previous groundglass opacities seen throughout both lungs. There is new nodular consolidative opacity in the superior segment of the left lower lobe with additional groundglass opacities also seen at the left base. There is near complete resolution of the remaining groundglass opacities. Mild bronchial wall thickening persists. PLEURA: No pleural effusion or pneumothorax. MEDIASTINUM: Normal heart size. No pericardial effusion. No hilar or mediastinal lymphadenopathy. Stable subcarinal lymph node. No evidence of septal bowing or right heart strain. CHEST WALL/AXILLA: No axillary or internal mammary lymphadenopathy. OSSEOUS STRUCTURES: No acute or suspicious osseous abnormality. UPPER ABDOMEN: Unremarkable. No reflux of contrast into the hepatic veins to suggest elevated right heart pressures. IMPRESSION: 1. No pulmonary embolism. 2. Significant improvement of the multifocal groundglass opacities with septal thickening throughout both lungs. There is residual groundglass opacity at the left lung base with new nodular consolidation in the superior segment of the left lower lobe. These findings are again suspicious for pneumonia. VTE: negative
--- NOTE | 2016-08-20 15:06 | History & Physical ---
BUNNY CHAPARRO,FLIP 08/20/16 1505: General Information and HPI MD Statement: I have seen and personally examined TERESA RODRIGEZ and documented this H&P. The patient is a 35 year old F who presented with a patient stated chief complaint of [I have body aches and is difficult for me to breathe]. Source of Information: patient, old records Exam Limitations: no limitations History of Present Illness: This is a 35-year-old lady with a history of asthma, cryptogenic organizing pneumonia, insomnia, chronic fibromyalgia presents to the emergency room after being evaluated by Dr. Verdugo who sent her in because she was tachycardic and also has been having tactile fevers, body aches over the course of last couple of days in addition to having dyspnea. She was recently admitted at [facility] at the beginning of July and discharged after being given IV steroids for a few days. She states that this is normal for her to have an exacerbation and she ends up in the ER almost every month. Denies any chest pain, recent travels. Does admit to nausea and had one episode of vomiting nonbloody/ nonbilious in the emergency room. Allergies/Medications Allergies: Coded Allergies: NO KNOWN ALLERGIES (07/30/16) Home Med list Albuterol Sulfate 2.5 MG/3 ML (0.083 %) VIAL.NEB 1 Vial INH/SIXTO TID CRYPTOGENIC ORGANIZING PNUEMON (Reported) Albuterol Sulfate (Proair Hfa) 90 MCG HFA.AER.AD 2 PUF INH Q4-6 PRN PRN RESPIRATORY (Reported) Budesonide/Formoterol Fumarate (Symbicort 160-4.5 Mcg Inhaler) 160 MCG-4.5 MCG/ ACTUATION HFA.AER.AD 2 PUF INH BID SOB (Reported) Cetirizine HCl (Zyrtec) 10 MG TABLET 1 TAB PO AT BEDTIME Allergies INSTRUCTED Montelukast Sodium 10 MG TABLET 1 TAB PO AT BEDTIME Allergies INSTRUCTED Omeprazole Magnesium 20 MG CAPSULE.DR 1 CAP PO DAILY GI (Reported) Oxycodone HCl 30 MG TABLET 1 TAB PO Q4P PRN PAIN (Reported) Prednisone 10 MG TABLET 30 MG PO DAILY ASTHMA (Reported) Tiotropium [place] (Spiriva) 18 MCG CAP.W.DEV 1 CAP INH DAILY ASTHMA ( Reported) Trazodone HCl 50 MG TABLET 3 TAB PO QPM SLEEP (Reported) Past History Travel History Traveled to [place] past 21 day No Medical History Neurological: NONE EENT: TMJ arthritis s/p jaw surgery at [facility] 2010 Cardiovascular: syncope (vasovagal(has had cardio eval)) Respiratory: asthma, bronchitis, pneumonia, cRYPTOGENIC ORGANIZING Gastrointestinal: constipation (IBS), irritable bowel syndrome Hepatic: NONE Renal: NONE Musculoskeletal: fibromyalgia Psychiatric: anxiety Endocrine: NONE Blood Disorders: NONE Cancer(s): NONE 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 FH: diabetes mellitus UNCLE-MATERNAL (BOOP). GRANDMOTHER-MATERNAL (CHF). Relation not specified for: FH: CAD (coronary artery disease) FH: HTN (hypertension) FH: ovarian cancer FH: uterine cancer Psychosocial History Who Do You Live With? SIGNIFICANT OTHER Services at Home: None Primary Language: French ETOH Use: denies use Illicit Drug Use: denies illicit drug use Functional Ability ADLs Independent: dressing, eating, toileting, bathing. Ambulation: independent IADLs Independent: shopping, housework, finances, food prep, telephone, transportation , medication admin. Review of Systems Review of Systems Constitutional: Reports: see HPI. Exam & Diagnostic Data Last 24 Hrs of Vital Signs/I&O Vital Signs Date Time Temp Pulse Resp B/P Pulse O2 O2 Flow FiO2 Ox Delivery Rate 08/20 1404 118 18 119/60 93 Room Air 08/20 1212 96 Nasal 2.5L Cannula 08/20 1145 99.6 144 20 109/73 92 Room Air Intake & Output 08/20 1600 08/20 0800 08/20 0000 Intake Total Output Total Balance Patient 160 lb Weight Physical Exam General Appearance Alert, Oriented X3, Cooperative HEENT Atraumatic, PERRLA, EOMI Neck Supple Lymphatic Axillary nl, Cervical nl Cardiovascular Regular Rate, Normal S1, Normal S2 Lungs wheezing b/l Abdomen Normal Bowel Sounds, Soft, No Tenderness Extremities No Clubbing, No Cyanosis, No Edema Last 24 Hrs of Labs/Luke: Laboratory Tests 08/20/16 1206: Anion Gap 9, Estimated GFR > 60, BUN/Creatinine Ratio 10.0, Glucose 91, Calcium 9.2, Magnesium 1.6, Total Bilirubin 0.7, AST 20, ALT 35, Alkaline Phosphatase 83 , Troponin I < 0.01, Total Protein 6.8, Albumin 4.0, Globulin 2.8, Albumin/ Globulin Ratio 1.4, Total Beta HCG NEGATIVE, PT 12.0, INR 1.14, APTT 39 H, CBC w Diff MAN DIFF ORDERED, RBC 4.92, MCV 82.3, MCH 28.0, RDW 13.6, MPV 8.0, Gran % 78.0 H, Lymphocytes % 12.8 L, Monocytes % 4.8, Eosinophils % 3.8, Basophils % 0.6, Absolute Granulocytes 13.1 H, Absolute Lymphocytes 2.2, Absolute Monocytes 0.8 H, Absolute Eosinophils 0.6, Absolute Basophils 0.1, Platelet Estimate VERIFIED BY SMEAR, Anisocytosis 1+, PUBS MCHC 34.0 Microbiology 08/20 1451 NASOPHARYN: Influenza Virus A & B Rapid Smear - ORD 08/20 1230 BLOOD: Blood Culture - RECD 08/20 1221 BLOOD: Blood Culture - RECD Diagnostic Data EKG Results Rate 123, MA 144, QRS 58, QTC 412Sinus tachycardia, no change since previous tracing Other Results cta- PATIENT: TERESA RODRIGEZ PRESENT AGE: 35 PATIENT ACCOUNT NO: [id number] : 81 LOCATION: [facility] ORDERING PHYSICIAN: RAFI COSBY SERVICE DATE: 08/20/161156 EXAM TYPE: CAT - CTA CHEST-PULMONARY EMBOLISM EXAMINATION: CT ANGIOGRAM OF THE CHEST WITH AND WITHOUT CONTRAST (CT PULMONARY ANGIOGRAM FOR PE) CLINICAL INFORMATION: Shortness of breath. Rule out pulmonary embolism. COMPARISON: Chest radiograph from 07/30/2016. Multiple priors, most recently CTA from 06/28/2016. TECHNIQUE: Prior to contrast administration, noncontrast localization images were obtained. Subsequently, multidetector volumetric imaging was performed from the thoracic inlet to below the diaphragms following the administration of 100 mL Optiray 350 intravenous contrast. No contrast reaction reported. Sagittal, coronal, and MIP oblique sagittal reformatted images were obtained on the CT workstation, uploaded to PACS, and reviewed. Total exam dose-length product 509 mGy-cm. FINDINGS: QUALITY OF STUDY/CONTRAST BOLUS: Satisfactory PULMONARY ARTERIES: No central or segmental pulmonary emboli. THORACIC AORTA: No aneurysm or dissection. LUNG: The central airways are patent. There is improvement of the previous groundglass opacities seen throughout both lungs. There is new nodular consolidative opacity in the superior segment of the left lower lobe with additional groundglass opacities also seen at the left base. There is near complete resolution of the remaining groundglass opacities. Mild bronchial wall thickening persists. PLEURA: No pleural effusion or pneumothorax. MEDIASTINUM: Normal heart size. No pericardial effusion. No hilar or mediastinal lymphadenopathy. Stable subcarinal lymph node. No evidence of septal bowing or right heart strain. CHEST WALL/AXILLA: No axillary or internal mammary lymphadenopathy. OSSEOUS STRUCTURES: No acute or suspicious osseous abnormality. UPPER ABDOMEN: Unremarkable. No reflux of contrast into the hepatic veins to suggest elevated right heart pressures. IMPRESSION: 1. No pulmonary embolism. 2. Significant improvement of the multifocal groundglass opacities with septal thickening throughout both lungs. There is residual groundglass opacity at the left lung base with new nodular consolidation in the superior segment of the left lower lobe. These findings are again suspicious for pneumonia. VTE: negative DICTATED BY: WILDA BRITO MD DATE/TIME DICTATED:08/20/161330 DIRECTOR CORPORATE COMMUNICATIONS:NABOR DATE/TIME TRANSCRIBED:08/20/161330 CONFIDENTIAL, DO NOT COPY WITHOUT APPROPRIATE AUTHORIZATION. 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 Asthma 3. Leukocytosis likely secondary to chronic steroid use 4. Tachycardia, unclear etiology, she does not seem dehydrated or anemic, there is a potential here for an anxiety-like state 5. Chronic TMJ Plan- Telemetry admit Vitals per protocol Solu-Medrol 40 IV twice a day per pulmonary Continue all steroids inhalers and nebulizers Will get an echocardiogram as requested by pulmonary Add on thyroid studies to admission labs Given her myalgias and low-grade fevers, will get flu swab And Legionella antigens, sputum culture if able to expectorate, blood cultures Cardiology evaluation Continue home meds Regular diet Pain pathway DVT prophylaxis with subcutaneous heparin Full code As Ranked By This Provider Problem List: 1. Tachycardia 2. Hypoxia 3. Gastroenteritis 4. Depression 5. Cryptogenic organizing pneumonia Core Measures/Miscellaneous Acute Coronary Syndrome ACS Diagnosis: No Cerebrovascular Accident CVA/TIA Diagnosis: No Congestive Heart Failure CHF Diagnosis: No Venous Thromboembolism VTE Risk Factors: Acute medical illness No [facility] V[facility] prophylaxis d/t: No contraindications No VTE Pharm Prophylaxis d/t: No contraindications VTE Diagnosis: No VTE Type: NONE VTE Confirmed by (Test): NONE Severe Sepsis Severe Sepsis Present: No Septic Shock Septic Shock Present: No Miscellaneous Documentation Attending Case Discussed With: dr. bradshaw Primary Care Physician: THEODORA OCONNOR MD Patient sees these Specialists dr. verdugo Level of Patient Care: Telemetry Resident Review Statement Resident Statement: examined this patient, discussed with internal communications specialist LANDRY BRADSHAW MD 08/20/16 1656: Attending MD Review Statement Attending Statement Attending MD Statement: examined this patient, discuss w/resident/PA/EXPELLER WORKER, agreed w/resident/PA/EXPELLER WORKER, reviewed EMR data (avail) Attending Assessment/Plan: 35F PMH fibromyalgia, cryptogenic organizing pneumonia presenting with 2 days of fever, weakness, fatigue, cough. Sinus tachycardia to 141 in ED. CTA negative in ED. Patient appears short of breath with coarse breath sounds bilaterally. WBC normal, afebrile here. Plan - Observation in telemetry - Pulmonary consult - Solumedrol 40mg IV BID - Nebulizer treatments - Send sputum culture - [place] home medications - Cardiology consult for tachycardia - Obtain echocardiogram - Anticipated discharge tomorrow
--- NOTE | 2016-08-20 15:20 | NUR ---
PT ON MONITOR. HEART RATE IMPROVING. HEART RATE 95
--- NOTE | 2016-08-20 15:23 | NUR ---
PT AWARE OF PLANS TO ADMIT TO HOSPTIAL FOR PNEUMONIA
--- NOTE | 2016-08-20 16:44 | NUR ---
BED ASSIGNMENT [id number]
--- NOTE | 2016-08-20 17:36 | NUR ---
REPORT CALLED TO VAL ON TELE UNIT. PT UP TO RESTROOM TO PROVIDE URINE SPECIMEN. AVL NOTIFIED THAT PT NEEDS RESP CULTURE
[2016-08-20 18:56] VITALS: BP 107/68
[2016-08-20 23:07] VITALS: BP 102/66
--- NOTE | 2016-08-21 03:00 | NUR ---
UPON ASSESSMENT MILD ST ELEVATION NOTED TO TELE MONITOR. PT HAD BEEN C/O NAUSEA WITH RELIEF FROM ZOFRAN. BP 98/62, HR 90'S 02 93% ON 2L. NO C/O CP, MILD C/O SOB WITH NO VISIBLE SIGNS OF DISTRESS. BE ROLON MD MADE AWARE, EKG ORDERED AND REVIEWED. F/U EKG ORDERED FOR 0700 NO OTHER NEW ORDERS AT THIS TIME, WILL CONTINUE TO MONITOR.
--- NOTE | 2016-08-21 07:12 | PN- Housestaff ---
MAGGIE CHAPARRO,NO 08/21/16 0711: Subjective Follow-up For: Cryptogenic organizing pneumonia Tachycardia Complaints: pain in the back of right side of the chest Tele-Events Since Last Visit: Normal sinus rhythm, with heart rate between 78-89, no any overnight events Subjective: Patient is seen and examined at the bedside. She was feeling much better. She was complaining of pain in the back of the right side of the chest. It was 3 out of 10. She says after getting steroids, it is much improved. She denies any tachycardia, tachypnea, chest pain, abdominal pain, fever, nausea, vomiting. Review of Systems Constitutional: Reports: malaise, weakness. Denies: chills, diaphoresis, fever. EENTM: Denies: no symptoms. Cardiovascular: Denies: chest pain, edema, orthopena, palpitations, peripheral edema. Respiratory: Reports: short of breath, wheezing. Denies: cough, hemoptysis, orthopnea, sputum production, stridor. Gastrointestinal: Denies: abdominal pain, bloating, constipation, diarrhea, distention. Genitourinary: Denies: discharge, dysuria, frequency, hematuria. Musculoskeletal: Reports: back pain, joint pain, muscle pain. Denies: joint swelling. Skin: Denies: no symptoms. Neurological/Psychological: Reports: anxiety, depressed. Denies: cognitive dysfunction, confusion, headache. Objective Last 24 Hrs of Vital Signs/I&O Vital Signs Date Time Temp Pulse Resp B/P Pulse O2 O2 Flow FiO2 Ox Delivery Rate 08/21 1627 97.7 94 20 124/64 95 Nasal 4.0L Cannula 08/21 1615 97 Nasal 4.0L Cannula 08/21 0829 92 Nasal 2.5L Cannula 08/21 0800 Nasal 2.0L Cannula 08/21 08 98.0 96 20 100/62 94 Nasal Cannula 08/21 0000 93 Nasal 2.0L Cannula 08/20 2307 98.2 100 20 102/66 92 Nasal 2.0L Cannula 08/20 2116 Nasal 2.0L Cannula 08/20 1856 98.7 85 20 107/68 95 Nasal 2.5L Cannula Intake & Output 08/21 1600 08/21 0800 08/21 0000 Intake Total 720 600 Output Total Balance 720 600 Intake, Oral 720 600 Patient 72.575 kg Weight Physical Exam General Appearance: Alert, Oriented X3, Cooperative, No Acute Distress Skin: No Rashes, No Breakdown Cardiovascular: Normal S1, Normal S2 Lungs: wheezing on the right side of middle part of the chest, rest of the lungs clear to auscultation Abdomen: Soft, No Tenderness Neurological: Normal Speech Extremities: No Clubbing, No Cyanosis, No Edema Vascular: Normal Pulses, Pulses Symmetrical Current Medications: Current Medications Sig/Nathan Start time Last Medication Dose Route Stop Time Status Admin Albuterol Sulfate 3 ML EVERY 4 HRS/AWAKE 08/21 0800 AC 08/21 INH 1638 Albuterol Sulfate 2 PUF Q4-6 PRN PRN 08/20 1530 AC INH Budesonide/ 2 PUF BID 08/20 2200 AC 08/21 Formoterol Fumarate INH 0938 Heparin Sodium 5,000 UNIT Q8 08/20 2200 AC 08/21 (Porcine) SC 1335 Loratadine 10 MG DAILY 08/21 1000 AC 08/21 PO 0937 Methylprednisolone 40 MG Q12 08/21 2200 AC IV 08/21 2205 Methylprednisolone 40 MG Q12 08/20 2200 DC 08/21 IV 0935 Montelukast Sodium 10 MG AT BEDTIME 08/20 2200 AC 08/20 PO 2115 Omeprazole 20 MG DAILY AC 08/21 0700 AC 08/21 PO 0547 Ondansetron HCl 4 MG Q6P PRN 08/20 1530 AC 08/21 IV 0935 Oxycodone HCl 30 MG Q4P PRN 08/20 1530 AC 08/21 PO 1740 Prednisone 60 MG DAILY 08/22 1000 AC PO Prednisone 60 MG DAILY 08/21 1513 DC PO Tiotropium [place] 1 PUF DAILY 08/21 1000 AC 08/21 INH 0935 Trazodone HCl 150 MG QPM 08/20 2200 AC 08/20 PO 2115 Last 24 Hrs of Lab/Luke Results Last 24 Hrs of Labs/Mics: Laboratory Tests 08/21/16 0630: CBC w Diff NO MAN DIFF REQ, RBC 4.56, MCV 82.8, MCH 27.7, RDW 14.1, MPV 8.4, Gran % 92.7 H, Lymphocytes % 6.4 L, Monocytes % 0.9 L, Eosinophils % 0, Basophils % 0 L, Absolute Granulocytes 14.1 H, Absolute Lymphocytes 1.0 L, Absolute Monocytes 0.1 L, Absolute Eosinophils 0, Absolute Basophils 0, PUBS MCHC 33.5 Assessment/Plan Assessment: Patient is a 35-year-old female with significant past medical history of TMJ dislocation on pain medication, IBS , chronic fibromyalgia, asthma, cryptogenic organizing pneumonia, sent to [facility] by Dr. Verdugo and he found that patient had tachycardia, along with fever. She was admitted to [facility] in early July with the same complain and was given IV steroids. Plan - Cryptogenic organizing pneumonia -migratory changes on the CT scan - * CTA was negative for PE * We will follow Dr Bhat rcms * We will continue inj Solu-Medrol 40 milligrams IV twice a day for today and then stop * We'll start patient on tab prednisone 60 mg PO OD * We start patient on Cap Omeprazole 20mg OD PO AC * We will keep oxygen at night and we will check ambulatory SpO2, to determine the oxygen requirment on walking. * Target of SPO2 more than 88% and will try to keep patient on 2 liters of oxygen * We will watch for breathing * We will follow CXR tmr to see for evidence of pneumonia. * TRC/breathing Tachycardia under evaluation * We will watch for tachycardia * We will follow cardiology rcms * We will follow Echo Asthma - * We will continue tab Moteleukast 10mg PO HS. Anxiety/Depression - * We will continue Tab Trazodone 150mg QPM TMJ Arthritis /Dislocation - * Pain medication according to pain score Diet - Regular Diet DVT Prophylaxis - ALPS/Heparin Code status -FC Problem List: 1. Tachycardia 2. Cryptogenic organizing pneumonia 3. TMJ (temporomandibular joint syndrome) 4. Fibromyalgia 5. Asthma Pain Ratin Pain Location: TMJ joint Pain Goal: Remain pain free Pain Plan: mild -moderate Tomorrow's Labs & Rationales: CBC - f/u for leucocytosis CXR -f/u for pneumonia DVT/Prophylaxis: mechanical, pharmacological JOSE ALFREDO PATRICK MD 08/21/16 4679: Attending Review Statement Attending Statement Attending Statement: examined this patient, discuss w/resident/PA/WHISKEY REGAUGER, agreed w/resident/PA/WHISKEY REGAUGER, reviewed EMR data (avail), discussed with nursing, discussed with case mgmt, amended to note Attending Assessment/Plan: The patient was seen and discussed with house staff. Appreciate Pulmonary and Cardiology input. ECHO done and result pending. Still desaturating with ambulation. Will continue care today and re-check ambulatory pulse oximetry tomorrow.
[2016-08-21 08:00] VITALS: BP 100/62; BP 178/70
[2016-08-21 08:04] LABS: ABSOLUTE BASOPHIL COUNT 0 /CUMM (0.0-0.2); ABSOLUTE EOSINOPHIL COUNT 0 /CUMM (0.0-0.7); ABSOLUTE GRANULOCYTE CT 14.1 /CUMM (1.4-6.5); ABSOLUTE MONOCYTE COUNT 0.1 /CUMM (0.10-0.60); BASOPHIL % 0 % (0.0-2.0); EOSINOPHIL % 0 % (0-5); HEMATOCRIT 37.7 % (37-47); MEAN CORPUSCULAR HGB 27.7 PG (27.0-31.0); MEAN CORPUSCULAR HGB CONC 33.5 G/DL (33.0-37.0); MEAN CORPUSCULAR VOLUME 82.8 FL (81.0-99.0); MEAN PLATELET VOLUME 8.4 FL (7.4-10.4); RBC DISTRIBUTION WIDTH 14.1 % (11.5-14.5); RED BLOOD CELL CT 4.56 /CUMM (4.20-5.40); WHITE BLOOD CELL COUNT 15.2 /CUMM (4.8-10.8)
[2016-08-21 08:47] LABS: GRANULOCYTE % 92.7 % (42.2-75.2); PLATELET COUNT 241 /CUMM (130-400)
--- NOTE | 2016-08-21 11:34 | Cons- Pulmonary ---
General Information and HPI Consulting Request Date of Consult: 08/21/16 Requested By: Dr. 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 Sent in to the ED yesterday for Heart rate 146, saturating 87% on room air. Feels faint, but overall improved. Her CT is suggestive of some fleeting/migrotary inflammatory changes, but globally improved. On nocturnal o2. No VTE was seen on CTA. Recent hospitalization. Consistnet with cryptogenic organizing pneumonia. CT scan with migratory features. Biopsy was not pursued due to patient wishes and empiric therapy was preferred. She remains on prednisone. Started on IV solumedrol yesterday. Some weight gain. Significant improvement in dyspnea, no wheezing. Effects of prednisone are primarily weight gain, however realizing improvement. Previously had a miscarriage and continues to have a depressed mood. Per patient, Dr. Park has no plan for allergy shots. Symbicort 2 puffs BID with rinsing of the mouth. Proair for rescue. She does not smoke or use drugs. 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 No sick contacts, no travel history. No n/v/d/c. Allergies/Medications Allergies: Coded Allergies: NO KNOWN ALLERGIES (07/30/16) Home Med List: Albuterol Sulfate 2.5 MG/3 ML (0.083 %) VIAL.NEB 1 Vial INH/SIXTO TID CRYPTOGENIC ORGANIZING PNUEMON (Reported) Albuterol Sulfate (Proair Hfa) 90 MCG HFA.AER.AD 2 PUF INH Q4-6 PRN PRN RESPIRATORY (Reported) Budesonide/Formoterol Fumarate (Symbicort 160-4.5 Mcg Inhaler) 160 MCG-4.5 MCG/ ACTUATION HFA.AER.AD 2 PUF INH BID SOB (Reported) Cetirizine HCl (Zyrtec) 10 MG TABLET 1 TAB PO AT BEDTIME Allergies INSTRUCTED Montelukast Sodium 10 MG TABLET 1 TAB PO AT BEDTIME Allergies INSTRUCTED Omeprazole Magnesium 20 MG CAPSULE.DR 1 CAP PO DAILY GI (Reported) Oxycodone HCl 30 MG TABLET 1 TAB PO Q4P PRN PAIN (Reported) Prednisone 10 MG TABLET 30 MG PO DAILY ASTHMA (Reported) Tiotropium [place] (Spiriva) 18 MCG CAP.W.DEV 1 CAP INH DAILY ASTHMA ( Reported) Trazodone HCl 50 MG TABLET 3 TAB PO QPM SLEEP (Reported) Current Medications: Current Medications Sig/Nathan Start time Last Medication Dose Route Stop Time Status Admin Albuterol Sulfate 3 ML EVERY 4 HRS/AWAKE 08/21 0800 AC 08/21 INH 0827 Albuterol Sulfate 2 PUF Q4-6 PRN PRN 08/20 1530 AC INH Albuterol Sulfate 3 ML ONCE ONE 08/20 1215 DC 08/20 INH 08/20 1216 1210 Budesonide/ 2 PUF BID 08/20 2200 AC 08/21 Formoterol Fumarate INH 0938 Heparin Sodium 5,000 UNIT Q8 08/20 2200 AC 08/21 (Porcine) SC 0547 Ipratropium [place] 2.5 ML ONCE ONE 08/20 1215 DC 08/20 INH 08/20 1216 1210 Loratadine 10 MG DAILY 08/21 1000 AC 08/21 PO 0937 Methylprednisolone 40 MG Q12 08/20 2200 AC 08/21 IV 0935 Methylprednisolone 0 .STK-MED ONE 08/20 1251 DC .ROUTE Methylprednisolone 125 MG ONCE ONE 08/20 1215 DC 08/20 IV 08/20 1216 1253 Montelukast Sodium 10 MG AT BEDTIME 08/20 2200 AC 08/20 PO 2115 Omeprazole 20 MG DAILY AC 08/21 0700 AC 08/21 PO 0547 Ondansetron HCl 4 MG Q6P PRN 08/20 1530 AC 08/21 IV 0935 Ondansetron HCl 4 MG ONCE ONE 08/20 1315 DC 08/20 IV 08/20 1316 1306 Ondansetron HCl 0 .STK-MED ONE 08/20 1306 DC .ROUTE Oxycodone HCl 30 MG Q4P PRN 08/20 1530 AC 08/21 PO 0941 Tiotropium [place] 1 PUF DAILY 08/21 1000 AC 08/21 INH 0935 Trazodone HCl 150 MG QPM 08/20 2200 AC 08/20 PO 2115 Review of Systems Comments 18 point Review of Systems performed. Positive and negative pertinent findings are deliniated in the HPI. Otherwise the ROS is negative. Past History Travel History Traveled to [place] past 21 day No Medical History Blood Transfusion Hx: No Neurological: NONE EENT: TMJ arthritis s/p jaw surgery at 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 FH: diabetes mellitus UNCLE-MATERNAL (BOOP). GRANDMOTHER-MATERNAL (CHF). Relation not specified for: FH: CAD (coronary artery disease) FH: HTN (hypertension) FH: ovarian cancer FH: uterine cancer Psychosocial History Who Do You Live With? SIGNIFICANT OTHER Services at Home: None Primary Language: Romansh Smoking Status: Never Smoked ETOH Use: denies use Illicit Drug Use: denies illicit drug use Functional Ability ADLs Independent: dressing, eating, toileting, bathing. Ambulation: independent IADLs Independent: shopping, housework, finances, food prep, telephone, transportation , medication admin. Exam & Diagnostic Data Last 24 Hrs of Vital Signs/I&O Vital Signs Date Time Temp Pulse Resp B/P Pulse O2 O2 Flow FiO2 Ox Delivery Rate 08/21 0829 92 Nasal 2.5L Cannula 08/21 0800 Nasal 2.0L Cannula 08/21 0800 98.0 96 20 100/62 94 Nasal Cannula 08/21 0000 93 Nasal 2.0L Cannula 08/20 2307 98.2 100 20 102/66 92 Nasal 2.0L Cannula 08/20 2116 Nasal 2.0L Cannula 08/20 1856 98.7 85 20 107/68 95 Nasal 2.5L Cannula 08/20 1721 96.5 97 18 94/60 96 Nasal 2.0L Cannula 08/20 1601 85 18 107/56 94 Nasal 2.0L Cannula 08/20 1404 118 18 119/60 93 Room Air 08/20 1400 Nasal 2.0L Cannula 08/20 1212 96 Nasal 2.5L Cannula 08/20 1145 99.6 144 20 109/73 92 Room Air Intake & Output 08/21 1600 08/21 0800 08/21 0000 Intake Total 600 Output Total Balance 600 Intake, Oral 600 Patient 160 lb Weight Physical Exam Other Physical Findings: General - Alert, awake and oriented HEENT - normocephalic, atraumatic Cardiovascular - S1, S2, tachycardic Lungs - rhonchi improved Abdomen - soft, bowel sounds positive, no tenderness Extremities - without edema or cyanosis Last 48 Hrs of Labs/Luke: Laboratory Tests 08/21/16 0630: CBC w Diff NO MAN DIFF REQ, RBC 4.56, MCV 82.8, MCH 27.7, RDW 14.1, MPV 8.4, Gran % 92.7 H, Lymphocytes % 6.4 L, Monocytes % 0.9 L, Eosinophils % 0, Basophils % 0 L, Absolute Granulocytes 14.1 H, Absolute Lymphocytes 1.0 L, Absolute Monocytes 0.1 L, Absolute Eosinophils 0, Absolute Basophils 0, PUBS MCHC 33.5 08/20/161749: Urine Color YEL, Urine Clarity CLEAR, Urine pH 8.0, Ur Specific [place] <= 1.005 , Urine Protein NEG, Urine Ketones NEG, Urine Nitrite NEG, Urine Bilirubin NEG, Urine Urobilinogen 0.2, Ur Leukocyte Esterase NEG, Ur Microscopic EXAM NOT REQUIRED, Urine Hemoglobin NEG, Urine Glucose NEG 08/20/16 1206: Anion Gap 9, Estimated GFR > 60, BUN/Creatinine Ratio 10.0, Glucose 91, Calcium 9.2, Magnesium 1.6, Total Bilirubin 0.7, AST 20, ALT 35, Alkaline Phosphatase 83 , Troponin I < 0.01, Uyl-V-Ecvsjvqedhw Pept 52.9, Total Protein 6.8, Albumin 4.0 , Globulin 2.8, Albumin/Globulin Ratio 1.4, TSH 1.710, Free T4 0.98, Total Beta HCG NEGATIVE, PT 12.0, INR 1.14, APTT 39 H, CBC w Diff MAN DIFF ORDERED, RBC 4.92, MCV 82.3, MCH 28.0, RDW 13.6, MPV 8.0, Gran % 78.0 H, Lymphocytes % 12.8 L, Monocytes % 4.8, Eosinophils % 3.8, Basophils % 0.6, Absolute Granulocytes 13.1 H, Absolute Lymphocytes 2.2, Absolute Monocytes 0.8 H, Absolute Eosinophils 0.6, Absolute Basophils 0.1, Platelet Estimate VERIFIED BY SMEAR, Anisocytosis 1+, PUBS MCHC 34.0 Microbiology 08/20 1749 URINE ROUT: Legionella Antigen - COMP 03/28 1750 URINE ROUT: Streptococcus pneumoniae Antigen (M - COMP 08/20 1557 NASOPHARYN: Influenza Virus A & B Rapid Smear - COMP Assessment/Plan Impression/Plan: Impression 35 year old woman * Cryptogenic organizing pneumonia - fleeting/migratory changes, overall better * tachycardia of unclear etiology * negative for VTE * depression/anxiety * nocturnal hypoxemia and acute hypoxemic respiratory failure Plan - d/c solumedrol - begin prednisone 60 mg po today - check cxr 08/22 - f/u echo - f/u Dr. Lozano's recommendations - check ambulatory o2 sats to determine o2 needs when walking - continue nocturnal oxygen - no need for abx at this point DVT prophylaxis at all times Consult Acknowledgment - Thank you for your consult request.
--- NOTE | 2016-08-21 12:45 | NUR ---
NSG NOTE: PATIENT REPORTS PALPITATIONS; HR 120S; BP 130/60; PATIENT STATES "I THINK THIS IS BECAUSE MY JAW STILL HURTS"; DR. PATRICK NOTIFIED; WILL MONITOR
[2016-08-21 16:27] VITALS: BP 124/64
--- NOTE | 2016-08-21 17:26 | Cons- Cardiology ---
General Information and HPI Consulting Request Date of Consult: 08/21/16 Requested By: LANDRY BRADSHAW MD Reason for Consult: Persistent tachycardia Source of Information: patient, old records History of Present Illness: This is a 35-year-old lady with a history of asthma, cryptogenic organizing pneumonia, insomnia, chronic fibromyalgia presents to the emergency room after being evaluated by Dr. Verdugo who sent her in because she was tachycardic and also has been having tactile fevers, body aches over the course of last couple of days in addition to having dyspnea. The patient was noted to have elevatd heart rate with sinus tachycardia and no other obvious supraventricular arrhythmias. She denies any known cardiac history. She has had intermittent palpitations. quality assurance monitor final shows episodes of elevated rate with sinus tachycardia and occasional ventricualr ectopy. NO SVT or AF. Rate improving today with ST at 90-110 Allergies/Medications Allergies: Coded Allergies: NO KNOWN ALLERGIES (07/30/16) Home Med List: Albuterol Sulfate 2.5 MG/3 ML (0.083 %) VIAL.NEB 1 Vial INH/SIXTO TID CRYPTOGENIC ORGANIZING PNUEMON (Reported) Albuterol Sulfate (Proair Hfa) 90 MCG HFA.AER.AD 2 PUF INH Q4-6 PRN PRN RESPIRATORY (Reported) Budesonide/Formoterol Fumarate (Symbicort 160-4.5 Mcg Inhaler) 160 MCG-4.5 MCG/ ACTUATION HFA.AER.AD 2 PUF INH BID SOB (Reported) Cetirizine HCl (Zyrtec) 10 MG TABLET 1 TAB PO AT BEDTIME Allergies INSTRUCTED Montelukast Sodium 10 MG TABLET 1 TAB PO AT BEDTIME Allergies INSTRUCTED Omeprazole Magnesium 20 MG CAPSULE.DR 1 CAP PO DAILY GI (Reported) Oxycodone HCl 30 MG TABLET 1 TAB PO Q4P PRN PAIN (Reported) Prednisone 10 MG TABLET 30 MG PO DAILY ASTHMA (Reported) Tiotropium [place] (Spiriva) 18 MCG CAP.W.DEV 1 CAP INH DAILY ASTHMA ( Reported) Trazodone HCl 50 MG TABLET 3 TAB PO QPM SLEEP (Reported) Current Medications: Current Medications Sig/Nathan Start time Last Medication Dose Route Stop Time Status Admin Albuterol Sulfate 3 ML EVERY 4 HRS/AWAKE 08/21 0800 AC 08/21 INH 1638 Albuterol Sulfate 2 PUF Q4-6 PRN PRN 08/20 1530 AC INH Budesonide/ 2 PUF BID 08/20 2200 AC 08/21 Formoterol Fumarate INH 0938 Heparin Sodium 5,000 UNIT Q8 08/20 2200 AC 08/21 (Porcine) SC 1335 Loratadine 10 MG DAILY 08/21 1000 AC 08/21 PO 0937 Methylprednisolone 40 MG Q12 08/21 2200 AC IV 08/21 2205 Methylprednisolone 40 MG Q12 08/20 2200 DC 08/21 IV 0935 Montelukast Sodium 10 MG AT BEDTIME 08/20 2200 AC 08/20 PO 2115 Omeprazole 20 MG DAILY AC 08/21 0700 AC 08/21 PO 0547 Ondansetron HCl 4 MG Q6P PRN 08/20 1530 AC 08/21 IV 0935 Oxycodone HCl 30 MG Q4P PRN 08/20 1530 AC 08/21 PO 1335 Prednisone 60 MG DAILY 08/22 1000 AC PO Prednisone 60 MG DAILY 08/21 1513 DC PO Tiotropium [place] 1 PUF DAILY 08/21 1000 AC 08/21 INH 0935 Trazodone HCl 150 MG QPM 08/20 2200 AC 08/20 PO 2115 Past History Travel History Traveled to [place] past 21 day No Medical History Blood Transfusion Hx: No Neurological: NONE EENT: TMJ arthritis s/p jaw surgery at [facility] 2010 Cardiovascular: syncope (vasovagal(has had cardio eval)) Respiratory: asthma, bronchitis, pneumonia, cRYPTOGENIC ORGANIZING Gastrointestinal: constipation (IBS), irritable bowel syndrome Hepatic: NONE Renal: NONE Musculoskeletal: fibromyalgia Psychiatric: anxiety Endocrine: NONE Blood Disorders: NONE Cancer(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 FH: diabetes mellitus UNCLE-MATERNAL (BOOP). GRANDMOTHER-MATERNAL (CHF). Relation not specified for: FH: CAD (coronary artery disease) FH: HTN (hypertension) FH: ovarian cancer FH: uterine cancer Psychosocial History Who Do You Live With? SIGNIFICANT OTHER Services at Home: None Primary Language: Kyrgyz Smoking Status: Never Smoked ETOH Use: denies use Illicit Drug Use: denies illicit drug use Functional Ability ADLs Independent: dressing, eating, toileting, bathing. Ambulation: independent IADLs Independent: shopping, housework, finances, food prep, telephone, transportation , medication admin. Exam & Diagnostic Data Vital Signs and I&O Vital Signs Date Time Temp Pulse Resp B/P Pulse O2 O2 Flow FiO2 Ox Delivery Rate 08/21 1627 97.7 94 20 124/64 95 Nasal 4.0L Cannula 08/21 1615 97 Nasal 4.0L Cannula 08/21 0829 92 Nasal 2.5L Cannula 08/21 0800 Nasal 2.0L Cannula 08/21 0800 98.0 96 20 100/62 94 Nasal Cannula 08/21 0000 93 Nasal 2.0L Cannula 08/20 2307 98.2 100 20 102/66 92 Nasal 2.0L Cannula 08/20 2116 Nasal 2.0L Cannula 08/20 1856 98.7 85 20 107/68 95 Nasal 2.5L Cannula Intake & Output 08/21 1600 08/21 0800 08/21 0000 08/20 1600 08/20 0800 08/20 0000 Intake Total 720 600 Output Total Balance 720 600 Intake, Oral 720 600 Patient 160 lb 160 lb Weight Physical Exam: General Appearance: Alert, Oriented X3, Cooperative, No Acute Distress, mild Cushingoid appearance Skin: Normal Cardiovascular: Normal S1, Normal S2, 1/6 systolic murmur Lungs: wheezing on the right side of middle part of the chest, rest of the lungs clear to auscultation Abdomen: Soft, No Tenderness Neurological: Non focal Extremities: No Clubbing, No Cyanosis, No Edema Vascular: Normal Pulses, Pulses Symmetrical Labs/Luke Results: Laboratory Tests 08/21 08/20 0630 1750 Hematology CBC w Diff NO MAN DIFF REQ WBC (4.8 - 10.8 /CUMM) 15.2 H RBC (4.20 - 5.40 /CUMM) 4.56 Hgb (12.0 - 16.0 G/DL) 12.6 Hct (37 - 47 %) 37.7 MCV (81.0 - 99.0 FL) 82.8 MCH (27.0 - 31.0 PG) 27.7 RDW (11.5 - 14.5 %) 14.1 Plt Count (130 - 400 /CUMM) 241 MPV (7.4 - 10.4 FL) 8.4 Gran % (42.2 - 75.2 %) 92.7 H Lymphocytes % (20.5 - 51.1 %) 6.4 L Monocytes % (1.7 - 9.3 %) 0.9 L Eosinophils % (0 - 5 %) 0 Basophils % (0.0 - 2.0 %) 0 L Absolute Granulocytes (1.4 - 6.5 /CUMM) 14.1 H Absolute Lymphocytes (1.2 - 3.4 /CUMM) 1.0 L Absolute Monocytes (0.10 - 0.60 /CUMM) 0.1 L Absolute Eosinophils (0.0 - 0.7 /CUMM) 0 Absolute Basophils (0.0 - 0.2 /CUMM) 0 PUBS MCHC (33.0 - 37.0 G/DL) 33.5 Urines Urine Color (YEL,AMB,STR) YEL Urine Clarity (CLEAR) CLEAR Urine pH (5.0 - 8.0) 8.0 Ur Specific [place] (1.001 - 1.035) <= 1.005 Urine Protein (NEG,<30 MG/DL) NEG Urine Ketones (NEG) NEG Urine Nitrite (NEG) NEG Urine Bilirubin (NEG) NEG Urine Urobilinogen (0.1 - 1.0 EU/dl) 0.2 Ur Leukocyte Esterase (NEG) NEG Ur Microscopic EXAM NOT REQUIRED Urine Hemoglobin (NEG) NEG Urine Glucose (N MG/DL) NEG 08/20 1206 Chemistry Sodium (137 - 145 mmol/L) 137 Potassium (3.5 - 5.1 mmol/L) 4.0 Chloride (98 - 107 mmol/L) 98 Carbon Dioxide (22 - 30 mmol/L) 30 Anion Gap (5 - 16) 9 BUN (7 - 17 mg/dL) 8 Creatinine (0.5 - 1.0 mg/dL) 0.8 Estimated GFR (>60 ml/min) > 60 BUN/Creatinine Ratio (7 - 25 %) 10.0 Glucose (65 - 99 mg/dL) 91 Calcium (8.4 - 10.2 mg/dL) 9.2 Magnesium (1.6 - 2.3 mg/dL) 1.6 Total Bilirubin (0.2 - 1.3 mg/dL) 0.7 AST (14 - 36 U/L) 20 ALT (9 - 52 U/L) 35 Alkaline Phosphatase (<127 U/L) 83 Troponin I (< 0.11 ng/ml) < 0.01 Wpq-T-Ckujvvribey Pept (<125 pg/mL) 52.9 Total Protein (6.3 - 8.2 g/dL) 6.8 Albumin (3.5 - 5.0 g/dL) 4.0 Globulin (1.9 - 4.2 gm/dL) 2.8 Albumin/Globulin Ratio (1.1 - 2.2 %) 1.4 TSH (0.270 - 4.200 uIU/mL) 1.710 Free T4 (0.79 - 2.35 ng/dL) 0.98 Total Beta HCG (NEGATIVE) NEGATIVE Coagulation PT (9.4 - 12.5 SEC) 12.0 INR (0.90 - 1.19) 1.14 APTT (25 - 37 SEC) 39 H Hematology CBC w Diff MAN DIFF ORDERED WBC (4.8 - 10.8 /CUMM) 16.8 H RBC (4.20 - 5.40 /CUMM) 4.92 Hgb (12.0 - 16.0 G/DL) 13.8 Hct (37 - 47 %) 40.5 MCV (81.0 - 99.0 FL) 82.3 MCH (27.0 - 31.0 PG) 28.0 RDW (11.5 - 14.5 %) 13.6 Plt Count (130 - 400 /CUMM) 260 MPV (7.4 - 10.4 FL) 8.0 Gran % (42.2 - 75.2 %) 78.0 H Lymphocytes % (20.5 - 51.1 %) 12.8 L Monocytes % (1.7 - 9.3 %) 4.8 Eosinophils % (0 - 5 %) 3.8 Basophils % (0.0 - 2.0 %) 0.6 Absolute Granulocytes (1.4 - 6.5 /CUMM) 13.1 H Absolute Lymphocytes (1.2 - 3.4 /CUMM) 2.2 Absolute Monocytes (0.10 - 0.60 /CUMM) 0.8 H Absolute Eosinophils (0.0 - 0.7 /CUMM) 0.6 Absolute Basophils (0.0 - 0.2 /CUMM) 0.1 Platelet Estimate (ADEQUATE) VERIFIED BY SMEAR Anisocytosis 1+ PUBS MCHC (33.0 - 37.0 G/DL) 34.0 Diagnostic Data Other Results CTA chest: 1. No pulmonary embolism. 2. Significant improvement of the multifocal groundglass opacities with septal thickening throughout both lungs. There is residual groundglass opacity at the left lung base with new nodular consolidation in the superior segment of the left lower lobe. These findings are again suspicious for pneumonia. Assessment/Plan Assessment/Plan Assessment: 1. Sinus tachycardia - likley multifactorial (Hypoxia, dehydration, nebulizers, etc) 2. Cryptogenic Organizing pneumonia 3. TMJ syndrome 4. Fibromyalgia 5. Asthma Recommendations: - At the present time I would continue to monitor the patient's rate and not consider any pharmacologic intervention. - Monitor heart rate response to nebulizer therapy - Echocardiogram to exclude the possibility fo any underlying structural heart disease. Consult Acknowledgment - Thank you for your consult request.
--- NOTE | 2016-08-21 18:59 | Discharge Summary ---
Visit Information Visit Dates Admission Date: 08/20/16 Discharge Date: 08/22/2016 Hospital Course Course Attending Physician: LANDRY BRADSHAW MD Primary Care Physician: THEODORA OCONNOR MD Hospital Course: Patient is a 35-year-old female with significant past medical history of TMJ dislocation on pain medication, IBS , chronic fibromyalgia, asthma, cryptogenic organizing pneumonia, sent to [facility] ED by Dr. Verdugo and he found that patient had tachycardia, along with fever. She was admitted to [facility] in early July with the same complain and was given IV steroids. Vital signs at the time of admission -temperature 99.6, pulse 144, respiratory rate 20, blood pressure 109/73, SPO2 92% on room air. Cryptogenic organizing pneumonia -migratory changes on the CT scan - Patient presented with fever, cough, wheezing, tachycardia. We did CTA which did not show it any signs of PE. We started her on IV Solu-Medrol. She responded well to the steroids. We regularly monitored her in telemetry for tachycardia and shortness of breath. She responded to IV steroid. Later we discharge her on oral steroid tablet prednisone 30 milligrams once a day, with advise to follow- up with Dr. 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 At the time of discharge, she needed 2 liters of oxygen overnight with saturation of 94% and on ambulation her SPO2 was 92% on room air. Tachycardia be secondary to fever/dehydration/albuterol inhalation We took cardiology consult and they advised for telemetry monitoring. During telemetry monitoring she does not had any episodes of arrhythmia/tachycardia. Echocardiogram showed - very small pericardial effusion,LVEF -65-70%. Later patient speaks out that, she was not taking her pain medication since last 1 week and that's why she started getting withdrawal symptoms in form of, anxiety and tachycardia. We discharged her with advised to follow-up with business writer as an outpatient. Allergies: Coded Allergies: NO KNOWN ALLERGIES (07/30/16) Disposition Summary Disposition Principal Diagnosis: Cryptogenic organizing pneumonia -migratory pattern on CT chest Tachycardia, probably secondary to fever, dehydration, albuterol inhalation, anxiety Additional Diagnosis: Asthma Fibromyalgia Anxiety/Depression TMJ Arthritis /Dislocation Obesity Discharge Disposition: home or self care Discharge Instructions General Discharge Information Code Status: Full Code Patient's Diet: Regular diet Patient's Activity: As tolerated Follow-Up Instructions/Appts: Please follow-up with Dr. Verdugo for further evaluation of recurrent episodes of breathlessness. You may require Pulmonary function test in future. Please follow up with business writer within a week of discharge for further evaluation of tachycardia Follow-up with your PCP within a week of discharge Please take the prednisone as advised Medications at Discharge Discharge Medications: Continue taking these medications: Tiotropium [place] (Spiriva) 18 MCG CAP.W.DEV 1 Capsule Inhale through mouth DAILY Comments: NOT GIVEN IN HOSPITAL Trazodone HCl (Trazodone HCl) 50 MG TABLET 3 Tablet ORAL Every night Qty = 30 Comments: Last Taken: 08/01/16 Time: 2200 PM Oxycodone HCl (Oxycodone HCl) 30 MG TABLET 1 Tablet ORAL EVERY 4 HOURS NEEDED as needed for PAIN Comments: Last Taken: 08/01/16 Time: 3:30PM Albuterol Sulfate (Albuterol Sulfate) 2.5 MG/3 ML (0.083 %) VIAL.NEB 1 Vial Inhale Solution THREE TIMES DAILY Qty = 270 Comments: NOT GIVEN IN HOSPITAL Omeprazole Magnesium (Omeprazole Magnesium) 20 MG CAPSULE.DR 1 Capsule ORAL DAILY Qty = 14 Comments: Last Taken: 08/01/16 Time: 0600 AM Prednisone (Prednisone) 10 MG TABLET 30 Milligram ORAL DAILY Qty = 20 Comments: NOT GIVEN IN HOSPITAL Budesonide/Formoterol Fumarate (Symbicort 160-4.5 Mcg Inhaler) 160 MCG-4.5 MCG/ ACTUATION HFA.AER.AD 2 Puff Inhale through mouth TWICE DAILY Comments: Last Taken: 08/01/16 Time: 1130AM Albuterol Sulfate (Proair Hfa) 90 MCG HFA.AER.AD 2 Puff Inhale through mouth EVERY 4-6 HOURS NEEDED as needed for RESPIRATORY Comments: NOT GIVEN IN HOSPITAL Cetirizine HCl (Zyrtec) 10 MG TABLET 1 Tablet ORAL AT BEDTIME Qty = 30 Instructions: INSTRUCTED Montelukast Sodium (Montelukast Sodium) 10 MG TABLET 1 Tablet ORAL AT BEDTIME Qty = 30 Instructions: INSTRUCTED Copies To: ELVIN CHAPARRO,THEODORA Mehta Attending Review Statement Documenting Attending: AUGUSTINE CHAPARRO,LANDRY
[2016-08-22 00:27] VITALS: BP 110/84
--- NOTE | 2016-08-22 08:22 | PN- Housestaff ---
See Addendum Subjective Follow-up For: Cryptogenic organizing pneumonia Tachycardia, probably secondary to withdrawal from pain medication Complaints: no complaints Tele-Events Since Last Visit: Normal sinus rhythm, heart rate between 70-84/MIN, no any overnight events Subjective: Patient seen and examined at the bedside. She does not have any active complain. She states that her pain in her back is much improved. She has an episode of tachycardia in the night, but which was subsided with in seconds. Denies chest pain, shortness of breath, cough, nasal congestion. She was saturating 94% on room air and after walking saturation remains between 92 to 94%. Review of Systems Constitutional: Reports: weakness. Cardiovascular: Denies: chest pain, edema, orthopena, palpitations. Respiratory: Denies: cough, hemoptysis, orthopnea, short of breath, sputum production. Gastrointestinal: Denies: abdominal pain, bloating, constipation, diarrhea. Genitourinary: Denies: no symptoms. Musculoskeletal: Reports: back pain. Denies: no symptoms. Skin: Denies: no symptoms. Objective Last 24 Hrs of Vital Signs/I&O Vital Signs Date Time Temp Pulse Resp B/P Pulse O2 O2 Flow FiO2 Ox Delivery Rate 08/22 1040 93 Room Air 08/22 0831 97.8 77 20 110/62 93 Nasal Cannula 08/22 0027 97.9 89 20 110/84 95 Nasal 2.0L Cannula 08/22 0000 Nasal 2.0L Cannula 08/21 1627 97.7 94 20 124/64 95 Nasal 4.0L Cannula 08/21 1615 97 Nasal 4.0L Cannula 08/21 1600 Nasal 2.0L Cannula Intake & Output 08/22 1600 08/22 0800 08/22 0000 Intake Total 130 500 Output Total Balance 130 500 Intake, IV 10 Intake, Oral 120 500 Physical Exam General Appearance: Alert, Oriented X3, Cooperative, No Acute Distress Cardiovascular: Normal S1, Normal S2 Lungs: Clear to Auscultation, Normal Air Movement, mild wheezing in right middle lobe Abdomen: Soft, No Tenderness Neurological: Normal Speech Extremities: No Clubbing, No Cyanosis, No Edema Vascular: Normal Pulses, Pulses Symmetrical Current Medications: Current Medications Sig/Nathan Start time Last Medication Dose Route Stop Time Status Admin Albuterol Sulfate 3 ML EVERY 4 HRS/AWAKE 08/21 0800 AC 08/22 INH 1037 Albuterol Sulfate 2 PUF Q4-6 PRN PRN 08/20 1530 AC INH Budesonide/ 2 PUF BID 08/20 2200 AC 08/22 Formoterol Fumarate INH 1029 Heparin Sodium 5,000 UNIT Q8 08/20 2200 AC 08/22 (Porcine) SC 0615 Loratadine 10 MG DAILY 08/21 1000 AC 08/22 PO 1026 Methylprednisolone 40 MG Q12 08/21 2200 DC 08/21 IV 08/21 220 2154 Methylprednisolone 40 MG Q12 08/20 2200 DC 08/21 IV 0935 Montelukast Sodium 10 MG AT BEDTIME 08/20 2200 AC 08/21 PO 2152 Omeprazole 20 MG DAILY AC 08/21 0700 AC 08/22 PO 0615 Ondansetron HCl 4 MG .STK-MED ONE 08/21 1914 DC IM 08/21 191 Ondansetron HCl 4 MG .STK-MED ONE 08/21 1906 DC PO 08/21 1907 Ondansetron HCl 4 MG Q6P PRN 08/20 1530 AC 08/21 IV 1918 Oxycodone HCl 30 MG Q4P PRN 08/20 1530 AC 08/22 PO 1026 Prednisone 60 MG DAILY 08/22 1000 AC 08/22 PO 1026 Prednisone 60 MG DAILY 08/21 1513 DC PO Tiotropium [place] 1 PUF DAILY 08/21 1000 AC 08/22 INH 1028 Trazodone HCl 150 MG QPM 08/20 2200 AC 08/21 PO 2153 Assessment/Plan Assessment: Patient is a 35-year-old female with significant past medical history of TMJ dislocation on pain medication, IBS , chronic fibromyalgia, asthma, cryptogenic organizing pneumonia, sent to [place] ED by Dr. Verdugo and he found that patient had tachycardia, along with fever. She was admitted to [facility] in early July with the same complain and was given IV steroids. Plan - Discharged today Cryptogenic organizing pneumonia -migratory changes on the CT scan - * CTA was negative for PE * We will follow Dr Bhat [facility] * We'll give tab prednisone 60 mg PO OD today and followed by prednisone 30 mg PO OD, till she follow-up with Dr. Verdugo as an outpatient. * We will continue Cap Omeprazole 20mg OD PO AC * We will keep patient on 2 liters of oxygen at night * Her ambulatory SpO2, was 92% on air. * TRC/breathing Tachycardia under evaluation * Echo - mild pericardial effusion otherwise normal. Asthma - * We will continue tab Moteleukast 10mg PO HS. Anxiety/Depression - * We will continue Tab Trazodone 150mg QPM TMJ Arthritis /Dislocation - * Pain medication according to pain score Diet - Regular Diet DVT Prophylaxis - ALPS/Heparin Code status - Problem List: 1. Cryptogenic organizing pneumonia 2. Asthma 3. Depression Pain Ratin Pain Location: Right medial part of theback of the chest Pain Goal: Remain pain free Pain Plan: mild Tomorrow's Labs & Rationales: Not required as patient is going home DVT/Prophylaxis: early ambulation low risk
[2016-08-22 08:31] VITALS: BP 110/62
--- NOTE | 2016-08-22 08:34 | ECHOCARDIOGRAM REPORT ---
TERESA RODRIGEZ Age: 35 : 1980 Gender: F Exam Date: 08/21/2016 18:22 Exam Location: 1 [address] Ht (in): 62 Wt (lb): 160 BSA: 1.81 BP: 100 / 62 Ordering Physician: ADRIANA HOLLIS M Referring Physician: Karie Lozano MD Technologist: Leanna Garza [facility] Room Number: 174-02 Indications: SUPRAVENTRICULAR TACHYCARDIA Rhythm: Sinus Technical Quality: Fair FINDINGS Left Ventricle Normal size left ventricle. No obvious regional wall motion abnormalities. Normal left ventricular ejection fraction estimated at 65-70%. Right Ventricle Right ventricle not well visualized, grossly normal. Right Atrium Normal right atrial size. Left Atrium Normal left atrial size. Mitral Valve Mitral valve thickened. Trace mitral regurgitation. Aortic Valve Diffuse thickening (sclerosis) of the aortic valve cusps without reduced excursion. Structurally normal trileaflet aortic valve. No aortic stenosis. No aortic regurgitation. Tricuspid Valve Tricuspid valve not well visualized, grossly normal. Trace tricuspid regurgitation. Pulmonic Valve Pulmonic valve not well visualized, grossly normal. Pericardium Minimal pericardial effusion (normal variant). Great Vessels Normal size aortic root and proximal ascending aorta. CONCLUSIONS 1. This was a technically difficult examination. 2. The aortic valve is trileaflet and normal. 3. Mild thickening of the mitral leaflets is present with minimal mitral insufficiency. 4. A very small pericardial effusion is present. 5. The left ventricular chamber size and systolic function are normal with no resting wall motion abnormalities. 6. The rigth heart structures are grossly normal. Minimal tricuspid insufficiency is present. The RV systolic pressure could not be accurately assessed on this examination. Karie Lozano M.D. (Electronically Signed) Final Date: 22 August 2016 08:33 MEASUREMENTS (Male / Female) Normal Values 2D ECHO LV Diastolic Diameter PLAX 3.6 cm 4.2 - 5.9 / 3.9 - 5.3 cm LV Systolic Diameter PLAX 2.1 cm 2.1 - 4.0 cm LV Fractional Shortening PLAX 41.7 % 25 - 46 % LV Ejection Fraction 2D Teich 73.5 % IVS Diastolic Thickness 1.0 cm LVPW Diastolic Thickness 1.1 cm LV Relative Wall Thickness 0.6 RV Internal Dim ED PLAX 2.1 cm 1.9 - 3.8 cm LVOT Diameter 2.0 cm Aortic Root Diameter 2.5 cm LA Systolic Diameter LX 3.7 cm 3.0 - 4.0 / 2.7 - 3.8 cm LA Volume 29.0 cm 18 - 58 / 22 - 52 cm Ascending Aorta Diameter 2.7 cm DOPPLER AV Peak Velocity 176.0 cm/s AV Peak Gradient 12.4 mmHg AV Mean Velocity 120.0 cm/s AV Mean Gradient 7.0 mmHg AV Velocity Time Integral 34.5 cm LVOT Peak Velocity 155.0 cm/s LVOT Peak Gradient 9.6 mmHg LVOT Mean Velocity 96.2 cm/s LVOT Mean Gradient 5.0 mmHg LVOT Velocity Time Integral 31.7 cm LVOT Stroke Volume 99.6 cm AV Area Cont Eq vti 2.9 cm AV Area Cont Eq pk 2.8 cm MV Peak Velocity 114.0 cm/s MV Peak Gradient 5.2 mmHg MV Mean Velocity 74.0 cm/s MV Mean Gradient 3.0 mmHg Mitral E Point Velocity 120.0 cm/s Mitral A Point Velocity 116.0 cm/s Mitral E to A Ratio 1.0 MV PHT Velocity 120.0 cm/s MV Deceleration [place] 925.0 cm/s MV Pressure Half Time 38.9 ms MV Area PHT 3.2 cm MV Deceleration Time 219.0 ms TR Peak Velocity 140.0 cm/s TR Peak Gradient 7.8 mmHg Right Atrial Pressure 5.0 mmHg Pulmonary Artery Systolic Pressu 12.8 mmHg Right Ventricular Systolic Press 12.8 mmHg PV Peak Velocity 127.0 cm/s PV Peak Gradient 6.5 mmHg PV Mean Velocity 85.8 cm/s PV Mean Gradient 3.0 mmHg PV Velocity Time Integral 27.6 cm LV E' Lateral Velocity 11.6 cm/s Mitral E to LV E' Lateral Ratio 10.3 LV E' Septal Velocity 11.6 cm/s Mitral E to LV E' Septal Ratio 10.3
--- NOTE | 2016-08-22 09:15 | PN- Cardiology ---
Subjective Subjective: Pt seen and examined, offers no complaints. Review of Systems Constitutional: Reports: see HPI. Objective Vital Signs and I&Os Vital Signs Date Time Temp Pulse Resp B/P Pulse O2 O2 Flow FiO2 Ox Delivery Rate 08/22 830 97.8 77 20 110/62 93 Nasal Cannula 08/22 0027 97.9 89 20 110/84 95 Nasal 2.0L Cannula 08/22 0000 Nasal 2.0L Cannula 08/21 1627 97.7 94 20 124/64 95 Nasal 4.0L Cannula 08/21 1615 97 Nasal 4.0L Cannula 08/21 1600 Nasal 2.0L Cannula Intake & Output 08/22 1600 08/22 0800 08/22 0000 08/21 1600 08/21 0800 08/21 0000 Intake Total 130 500 720 600 Output Total Balance 130 500 720 600 Intake, IV 10 Intake, Oral 120 500 720 600 Patient 160 lb Weight Physical Exam General Appearance: well developed/nourished, no apparent distress, alert Ears, Nose, Throat: normal pharynx, normal ENT inspection Respiratory: chest non-tender, no respiratory distress Cardiovascular: regular rate/rhythm Abdomen: normal bowel sounds, soft, non-tender Back: normal inspection, normal range of motion Extremities: normal inspection, normal capillary refill Current Medications: Current Medications Sig/Nathan Start time Last Medication Dose Route Stop Time Status Admin Albuterol Sulfate 3 ML EVERY 4 HRS/AWAKE 08/21 0800 AC 08/21 INH 2055 Albuterol Sulfate 2 PUF Q4-6 PRN PRN 08/20 1530 AC INH Budesonide/ 2 PUF BID 08/20 2200 AC 08/21 Formoterol Fumarate INH 2150 Heparin Sodium 5,000 UNIT Q8 08/20 2200 AC 08/22 (Porcine) SC 0615 Loratadine 10 MG DAILY 08/21 1000 AC 08/21 PO 0937 Methylprednisolone 40 MG Q12 08/21 2199 DC 08/21 IV 08/21 2204 215 Methylprednisolone 40 MG Q12 08/20 2200 DC 08/21 IV 0935 Montelukast Sodium 10 MG AT BEDTIME 08/20 2200 AC 08/21 PO 2152 Omeprazole 20 MG DAILY AC 08/21 0700 AC 08/22 PO 0615 Ondansetron HCl 4 MG .STK-MED ONE 08/21 1913 DC IM 08/21 1914 Ondansetron HCl 4 MG .STK-MED ONE 08/21 1906 DC PO 08/21 1907 Ondansetron HCl 4 MG Q6P PRN 08/20 1530 AC 08/21 IV 1918 Oxycodone HCl 30 MG Q4P PRN 08/20 1530 AC 08/22 PO 0617 Prednisone 60 MG DAILY 08/22 1000 AC PO Prednisone 60 MG DAILY 08/21 1513 DC PO Tiotropium [place] 1 PUF DAILY 08/21 1000 AC 08/21 INH 0935 Trazodone HCl 150 MG QPM 08/20 2200 AC 08/21 PO 2153 Results Last 48 Hrs of Labs/Mics: Laboratory Tests 08/21/16 0630: CBC w Diff NO MAN DIFF REQ, RBC 4.56, MCV 82.8, MCH 27.7, RDW 14.1, MPV 8.4, Gran % 92.7 H, Lymphocytes % 6.4 L, Monocytes % 0.9 L, Eosinophils % 0, Basophils % 0 L, Absolute Granulocytes 14.1 H, Absolute Lymphocytes 1.0 L, Absolute Monocytes 0.1 L, Absolute Eosinophils 0, Absolute Basophils 0, PUBS MCHC 33.5 08/20/16 1750: Urine Color YEL, Urine Clarity CLEAR, Urine pH 8.0, Ur Specific [place] <= 1.005 , Urine Protein NEG, Urine Ketones NEG, Urine Nitrite NEG, Urine Bilirubin NEG, Urine Urobilinogen 0.2, Ur Leukocyte Esterase NEG, Ur Microscopic EXAM NOT REQUIRED, Urine Hemoglobin NEG, Urine Glucose NEG 08/20/16 1206: Anion Gap 9, Estimated GFR > 60, BUN/Creatinine Ratio 10.0, Glucose 91, Calcium 9.2, Magnesium 1.6, Total Bilirubin 0.7, AST 20, ALT 35, Alkaline Phosphatase 83 , Troponin I < 0.01, Vpd-E-Zphvbtufxrb Pept 52.9, Total Protein 6.8, Albumin 4.0 , Globulin 2.8, Albumin/Globulin Ratio 1.4, TSH 1.710, Free T4 0.98, Total Beta HCG NEGATIVE, PT 12.0, INR 1.14, APTT 39 H, CBC w Diff MAN DIFF ORDERED, RBC 4.92, MCV 82.3, MCH 28.0, RDW 13.6, MPV 8.0, Gran % 78.0 H, Lymphocytes % 12.8 L, Monocytes % 4.8, Eosinophils % 3.8, Basophils % 0.6, Absolute Granulocytes 13.1 H, Absolute Lymphocytes 2.2, Absolute Monocytes 0.8 H, Absolute Eosinophils 0.6, Absolute Basophils 0.1, Platelet Estimate VERIFIED BY SMEAR, Anisocytosis 1+, PUBS MCHC 34.0 Microbiology 08/20 1749 URINE ROUT: Legionella Antigen - COMP 08/20 1749 URINE ROUT: Streptococcus pneumoniae Antigen (M - COMP 08/20 1557 NASOPHARYN: Influenza Virus A & B Rapid Smear - COMP Assessment/Plan Assessment/Plan Assessment- 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 Leukocytosis 2/2 steroids 3. Sinus tachycardia, resolved 4. Chronic TMJ syndrome 5. 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 No
--- NOTE | 2016-08-22 10:39 | Patient Discharge Instructions ---
Discharge Instructions General Discharge Information You were seen/treated for: Difficulty in breathing and tachycardia Special Instructions: please follow up with your PCP with in a week of discharge. please follow up with your neurologist. 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 Please continue night time oxygen. Diet Recommended Diet: Heart Healthy Activity Full Activity/No Limits: No (as tolerated) Activity Self Limited: No Acute Coronary Syndrome Inclusion Criteria At DC or during hospital stay patient has or had the following: ACS DIAGNOSIS No Discharge Core Measures Meds if any: Prescribed or Continued at Discharge Meds if any: NOT Prescribed or Continued at Discharge Congestive Heart Failure Inclusion Criteria At DC or during hospital stay patient has or had the following: CHF DIAGNOSIS No Discharge Core Measures Meds if any: Prescribed or Continued at Discharge Meds if any: NOT Prescribed or Continued at Discharge Cerebrovascular accident Inclusion Criteria At DC or during hospital stay patient has or had the following: CVA/TIA Diagnosis No Discharge Core Measures Meds if any: Prescribed or Continued at Discharge Meds if any: NOT Prescribed or Continued at Discharge Venous thromboembolism Inclusion Criteria VTE Diagnosis No VTE Type NONE VTE Confirmed by (Test) NONE Discharge Core Measures - Per Current guidelines, there needs to be overlap - treatment for the first 5 days of Warfarin therapy. - If discharged on Warfarin prior to 5 days of - overlap therapy, the patient will need to be - assessed for post discharge needs including - *Post discharge parental anticoagulation - *Warfarin and/or parental anticoagulation education - *Follow up date to check INR post discharge At least 5 days overlap therapy as Inpatient No Meds if any: Prescribed or Continued at Discharge Note: Overlap Therapy is Warfarin and Anticoagulant Meds if any: NOT Prescribed or Continued at Discharge
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
[2016-08-22] MEDS ORDERED: OXYCODONE HCL30 M1 PO (13:14)
--- NOTE | 2016-08-22 14:42 | RADIOLOGY REPORT ---
EXAMINATION: XR CHEST CLINICAL INFORMATION: Dyspnea. Tachycardia. COMPARISON: Chest done on 07/30/2016. TECHNIQUE: 2 views of the chest were obtained. FINDINGS: Mild prominent bronchovascular markings are noted predominantly at both lower lobes, similar to prior study. No superimposed discrete focal alveolar airspace disease is noted. The cardiac mediastinal silhouette is within normal limits. There is no pleural effusion present. The visualized upper abdomen is unremarkable. No significant change since prior study. IMPRESSION: No acute cardiopulmonary disease. Stable nonspecific bibasilar prominent bronchovascular markings, unchanged since 07/30/2016.
== END 2016-08-22 14:10 ==
LOC: ENRESERVTM → ENRESERVDT → ERH 11:39 → 1NO 15:20 → ENPENDDIS 15:20 → ERHI 15:20 → 1NO 17:45
PROVIDERS: Internal Medicine; Physician Assistant; ADMIT Internal Medicine
DX: J84.116 Cryptogenic organizing pneumonia (principal); R50.9 Fever, unspecified; R00.0 Tachycardia, unspecified; E86.0 Dehydration; J45.909 Unspecified asthma, uncomplicated; M79.7 Fibromyalgia; M26.69 Other specified disorders of temporomandibular joint; E66.9 Obesity, unspecified; R06.00 Dyspnea, unspecified; Z79.52 Long term (current) use of systemic steroids; R06.02 Shortness of breath
CPT/HCPCS: 1NSP; 36415; 81003; 87040; 87070; 87449; 87450; 87804; 87804-59; 93005; 93010; 93306; 96372; 96374; 96375; 96376; G0378; J1644; J2405; J2920; J2930; J3101; J3490

== ENCOUNTER 2016-09-28 12:48 | Inpatient (IN) | payer OTHER ==
[~2016-09-28] VITALS: Ht 157.5 cm; Wt 72.6 kg
--- NOTE | 2016-09-28 13:00 | NUR ---
PT EVALUATED BY HARJEET ESCALANTE
--- NOTE | 2016-09-28 13:02 | ED DYSPNEA/ASTHMA COMPLAINT ---
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/PALP Source: patient, old records Exam Limitations: no limitations Vital Signs & Intake/Output Vital Signs & Intake/Output Vital Signs Date Time Temp Pulse Resp B/P B/P Pulse O2 O2 Flow FiO2 Mean Ox Delivery Rate 09/28 1444 98.2 100 21 138/76 94 Nasal 4.0L Cannula 09/28 1313 87 Nasal 4.0L Cannula 09/28 1307 91 Nasal 4.0L Cannula 09/28 1306 97.9 106 20 125/74 92 Nasal 4.0L Cannula Allergies Coded Allergies: NO KNOWN ALLERGIES (07/30/16) Reconcile Medications Albuterol Sulfate (Proair Hfa) 90 MCG HFA.AER.AD 2 PUF INH Q4-6 PRN PRN RESPIRATORY (Reported) Budesonide/Formoterol Fumarate (Symbicort 160-4.5 Mcg Inhaler) 160 MCG-4.5 MCG/ ACTUATION HFA.AER.AD 2 PUF INH BID SOB (Reported) Cetirizine HCl (Zyrtec) 10 MG TABLET 1 TAB PO AT BEDTIME Allergies INSTRUCTED Montelukast Sodium 10 MG TABLET 1 TAB PO AT BEDTIME Allergies INSTRUCTED Omeprazole Magnesium 20 MG CAPSULE.DR 1 CAP PO DAILY GI (Reported) Oxycodone HCl 30 MG TABLET 1 TAB PO Q4P PRN PAIN Tiotropium [place] (Spiriva) 18 MCG CAP.W.DEV 1 CAP INH DAILY ASTHMA ( Reported) Trazodone HCl 50 MG TABLET 3 TAB PO QPM SLEEP (Reported) Triage Nurses Notes Reviewed? yes HPI: Patient is a 35-year-old female with history of cryptogenic organizing pneumonia presents complaining of asthma exacerbation. Patient reports that she's been having dyspnea and wheezing for 1-2 weeks which has been gradually worsening. Symptoms are currently severe. Patient has been using her albuterol inhaler with minimal improvement. Last used her inhaler yesterday evening. Patient has had recurrent admissions for similar. Patient reports that symptoms began with "a stomach" when she began to have respiratory symptoms. 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 Positive associated diaphoresis. Patient reports that her fianc is a smoker but does not smoke around her changes his clothing prior to being around her. Patient denies chest pain, fevers, lower extemity pain, lower extremity swelling, hormone/contraceptive use. (THOR PEDRO) Past History Medical History Any Pertinent Medical History? see below for history Neurological: NONE EENT: TMJ arthritis s/p jaw surgery at [facility] 2010 Cardiovascular: syncope (vasovagal(has had cardio eval)) Respiratory: asthma, bronchitis, pneumonia, cRYPTOGENIC ORGANIZING Gastrointestinal: constipation (IBS), irritable bowel syndrome Hepatic: NONE Renal: NONE Musculoskeletal: fibromyalgia Psychiatric: anxiety Endocrine: NONE Blood Disorders: NONE Cancer(s): NONE LEATHER SKINNER/Reproductive: NONE History of MRSA: No History of VRE: No History of CDIFF: No Influenza Vaccine: 01/18/16 Surgical History Surgical History: appendectomy, plantar wart removal jaw surgery for TMJ Psychosocial History Who do you live with Significant Other Services at Home None What is your primary language Luxembourgish Family History Family History, If Any: FATHER (Asthma). FH: diabetes mellitus UNCLE-MATERNAL (BOOP). GRANDMOTHER-MATERNAL (CHF). Relation not specified for: FH: CAD (coronary artery disease) FH: HTN (hypertension) FH: ovarian cancer FH: uterine cancer Hx Contributory? No (THOR PEDRO) Review of Systems Review of Systems Constitutional: Reports: diaphoresis. Denies: chills, fever. EENTM: Reports: no symptoms, mouth pain (chronic jaw pain). Respiratory: Reports: see HPI. Cardiovascular: Denies: chest pain. GI: Denies: abdominal pain, nausea, vomiting. Genitourinary: Reports: no symptoms. Musculoskeletal: Reports: no symptoms. Skin: Reports: no symptoms. Neurological/Psychological: Reports: no symptoms. Hematologic/Endocrine: Reports: no symptoms. Immunologic/Allergic: Reports: no symptoms. (THOR PEDRO) Physical Exam Physical Exam General Appearance: alert, awake Head: atraumatic, normal appearance Eyes: Bilateral: normal appearance, PERRL, EOMI. Ears, Nose, Throat: normal pharynx, normal ENT inspection, hearing grossly normal Neck: normal inspection, supple, full range of motion Respiratory: diffusely diminished lung sounds with diffuse moderate inspiratory and expiratory wheezing Cardiovascular: tachycardia (regular rhythm) Gastrointestinal: soft, non-tender Extremities: normal inspection, normal capillary refill, normal range of motion, no edema Neurologic/Psych: no motor/sensory deficits, awake, alert, oriented x 3 Skin: intact, normal color, warm/dry Lymphatic: no anterior cervical carol Core Measures ACS in differential dx? No Severe Sepsis Present: No Septic Shock Present: No (ARTI COSBY,THOR) Progress Differential Diagnosis: asthma, bronchitis, pulmonary embolism, pneumonia, cryptogenic organizing pneumonia vs community acquired pneumonia vs healthcare associated/acquired pneumonia. Malignancy Plan of Care: Orders Procedure Date/time Status Regular Diet 09/28 D Active Patient Data 09/28 1627 Active Add-on Test (ER Only) 09/28 154 Active BLOOD CULTURE 09/28 1548 Active Telemetry/Business Office Manager 09/28 1329 Active LACTIC ACID 09/28 1328 Complete OXYGEN SETUP (GEN) 09/28 132 Active CONTINOUS NEBULIZER TX (1 HR) 09/28 132 Complete Saline Lock 09/28 1320 Active Admit to inpatient 09/28 1320 Active Vital Signs 09/28 1320 Active Activity/Ambulation 09/28 1320 Active Code Status 09/28 1320 Active HUMAN BETA HCG SCREEN 09/28 1310 Complete COMPREHENSIVE METABOLIC PANEL 09/28 1310 Complete CBC WITHOUT DIFFERENTIAL 09/28 1310 Complete EKG 09/28 1250 Active Current Medications Sig/Nathan Start time Last Medication Dose Stop Time Status Admin Azithromycin 500 MG ONCE ONE 09/28 1600 AC (Zithromax) 09/28 1659 Sodium Chloride 250 ML (Normal Saline 0.9%) Laboratory Tests 09/28/16 1328: Anion Gap 13, Estimated GFR > 60, BUN/Creatinine Ratio 11.4, Glucose 82, Lactic Acid 0.8, Calcium 9.0, Total Bilirubin 0.8, AST 21, ALT 36, Alkaline Phosphatase 87, Total Protein 7.0, Albumin 4.2, Globulin 2.8, Albumin/Globulin Ratio 1.5, Total Beta HCG NEGATIVE, CBC w Diff NO MAN DIFF REQ, RBC 5.01, MCV 82.3, MCH 26.7 L, RDW 14.8 H, MPV 8.2, Gran % 54.8, Lymphocytes % 20.8, Monocytes % 6.2, Eosinophils % 17.8 H, Basophils % 0.4, Absolute Granulocytes 7.4 H, Absolute Lymphocytes 2.8, Absolute Monocytes 0.8 H, Absolute Eosinophils 2.4, Absolute Basophils 0.1, PUBS MCHC 32.5 L Microbiology 09/28 1605 BLOOD: Blood Culture - RECD 09/28 1548 BLOOD: Blood Culture - ORD 1310: Patient arrived with an oxygen saturation of 84% on room air. Increased to 91-92% on 4 L by nasal cannula. High-dose continuous albuterol nebulizer ordered. Previous record reviewed. Patient had CTA that ruled out PE on previous admission approximately 5 weeks ago. Repeat CTA deferred at this time. Discussed with Dr. Parada. 1410: Patient reports mild improvement, is still on the continuous nebulizer treatment. Lungs were examined. Improved air movement but continues with moderate diffuse wheezing. Discussed results of labs and chest x-ray with patient. Discussed with Dr. Bradshaw for admission. (ARTI COSBY,THOR) Diagnostic Imaging: Viewed by Me: Radiology Read. Discussed w/RAD: Radiology Read. CXR Impression: PATIENT: TERESA RODRIGEZ PRESENT AGE : 35 PATIENT ACCOUNT NO: [id number] : 81 LOCATION: [facility] ORDERING PHYSICIAN: THOR COSBY SERVICE DATE: 09/28/16 EXAM TYPE: RAD - XRY-PORTABLE CHEST XRAY EXAMINATION: XR PORTABLE CHEST CLINICAL INFORMATION: Cough, dyspnea COMPARISON: 08/22/2016 chest x-ray TECHNIQUE: Portable upright AP view of the chest was obtained. FINDINGS: The cardiomediastinal silhouette is normal. The pulmonary vascularity is within normal limits. There are patchy bilateral airspace disease in the bilateral lower lobes, more prominent than the comparison chest x-ray. There is also suggestion of a 1.1 cm nodular density at the right lung apex. No pleural effusions or pneumothorax. The visualized bony thorax is unremarkable. IMPRESSION: 1. Bilateral lower lungs opacities, can represent pneumonia. 2. A 1.1 cm right upper lobe nodular density. It is a new finding since the comparison CT scan and chest x-ray and could be artifactual and as the result of superimposed shadows. Consider further evaluation by standard PA and lateral chest x-rays, if clinically indicated. DICTATED BY: DANIELA MOMIN MD DATE/TIME DICTATED:09/28/161536 LICENSED PRACTICAL NURSE INSTRUCTOR:NABOR DATE/TIME TRANSCRIBED:09/28/161536 CONFIDENTIAL, DO NOT COPY WITHOUT APPROPRIATE AUTHORIZATION. <Electronically signed in Other Vendor System> SIGNED BY: DANIELA MOMIN MD 09/28/16 1545 Initial ED EKG: sinus tachycardia 105 bpm, normal axis, normal intervals, no acute st/t wave abnormalities Prior EKG: changed (faster rate than previous) Rhythm Strip: normal sinus rhythm (THOR PEDRO) Departure Departure Time of Disposition: 1550 Disposition: STILL A PATIENT Condition: Stable Clinical Impression Primary Impression: Multifocal pneumonia Secondary Impressions: Cryptogenic organizing pneumonia Status asthmaticus Qualifiers: Asthma severity: unspecified severity Qualified Code: J45.902 - Unspecified asthma with status asthmaticus Referrals: THEODORA OCONNOR MD (PCP/Family) Departure Forms: Customer Survey General Discharge Information Admission Note Spoke With: LANDRY BRADSHAW MD Documentation of Exam: Documentation of any treatments & extenuating circumstances including Concerns Regarding Discharge (functional status, medication knowledge or non-compliance, living conditions, etc.) that warrant an admission rather than observation: Total respiratory care, IV steroids, pulmonary consultation, supplemental oxygen (THOR PEDRO) PA/HUMANITIES AND LANGUAGES PROFESSOR Co-Sign Statement Statement: ED Attending supervision documentation- x I saw and evaluated the patient. I have also reviewed all the pertinent lab results and diagnostic results. I agree with the findings and the plan of care as documented in the PA's/HUMANITIES AND LANGUAGES PROFESSOR's documentation. [] I have reviewed the ED Record and agree with the PA's/HUMANITIES AND LANGUAGES PROFESSOR's documentation. [] Additions or exceptions (if any) to the PAs/HUMANITIES AND LANGUAGES PROFESSOR's note and plan are summarized below: [] (EVERT CHAPARRO,DANIELLE) Critical Care Note Critical Care Note Critical Care Time: 30-74 min (THOR PEDRO)
--- NOTE | 2016-09-28 13:02 | NUR ---
35 Y/O FEMALE COMES IN FOR DIFFICULTY BREATHING. PT STS SHE HAS HX OF CRYPTOGENIC ORGANIZING PNEUMONIA, AND FOR PAST WEEK SHE HAS BEEN COUGHING NON STOP AND CAN NOT CATCH BREATH SOMETIMES. PT ARRIVES IN ROOM AND SAT IS 84% RA, PLACED ON OXYGEN 2L WITH SOME EFFECT. PT NOTED TO HAVE EXPIARATORY WHEEZES IN ALL LOBES. EKG COMPLETED AND PT ALSO NOTED TO BE SLIGHTLY TACHY AND DIAPHORETIC. PT STS SHE GETS ANXIOUS WHEN SHE IS UNABLE TO BREATH. PT DENIES ANY OTHER COMPLAINTS.
--- NOTE | 2016-09-28 13:34 | NUR ---
RT AT BEDSIDE WITH PT AND PT MEDICATED ORDERED AND HAS CONTIONOUS NEB GOING
[2016-09-28 14:13] LABS: ABSOLUTE BASOPHIL COUNT 0.1 /CUMM (0.0-0.2); ABSOLUTE EOSINOPHIL COUNT 2.4 /CUMM (0.0-0.7); ABSOLUTE GRANULOCYTE CT 7.4 /CUMM (1.4-6.5); ABSOLUTE LYMPH COUNT 2.8 /CUMM (1.2-3.4); ABSOLUTE MONOCYTE COUNT 0.8 /CUMM (0.10-0.60); BASOPHIL % 0.4 % (0.0-2.0); EOSINOPHIL % 17.8 % (0-5); GRANULOCYTE % 54.8 % (42.2-75.2); HEMATOCRIT 41.2 % (37-47); MEAN CORPUSCULAR HGB 26.7 PG (27.0-31.0); MEAN CORPUSCULAR HGB CONC 32.5 G/DL (33.0-37.0); MEAN CORPUSCULAR VOLUME 82.3 FL (81.0-99.0); MEAN PLATELET VOLUME 8.2 FL (7.4-10.4); PLATELET COUNT 322 /CUMM (130-400); RBC DISTRIBUTION WIDTH 14.8 % (11.5-14.5); RED BLOOD CELL CT 5.01 /CUMM (4.20-5.40); WHITE BLOOD CELL COUNT 13.4 /CUMM (4.8-10.8)
--- NOTE | 2016-09-28 15:45 | RADIOLOGY REPORT ---
EXAMINATION: XR PORTABLE CHEST CLINICAL INFORMATION: Cough, dyspnea COMPARISON: 08/22/2016 chest x-ray TECHNIQUE: Portable upright AP view of the chest was obtained. FINDINGS: The cardiomediastinal silhouette is normal. The pulmonary vascularity is within normal limits. There are patchy bilateral airspace disease in the bilateral lower lobes, more prominent than the comparison chest x-ray. There is also suggestion of a 1.1 cm nodular density at the right lung apex. No pleural effusions or pneumothorax. The visualized bony thorax is unremarkable. IMPRESSION: 1. Bilateral lower lungs opacities, can represent pneumonia. 2. A 1.1 cm right upper lobe nodular density. It is a new finding since the comparison CT scan and chest x-ray and could be artifactual and as the result of superimposed shadows. Consider further evaluation by standard PA and lateral chest x-rays, if clinically indicated.
--- NOTE | 2016-09-28 16:30 | NUR ---
PT MEDICATED ORDERED WITH BOTH ROCEPHIN AND ZITHRO
--- NOTE | 2016-09-28 16:36 | History & Physical ---
JULIA COTA 09/28/16 1636: General Information and HPI MD Statement: I have seen and personally examined TERESA RODRIGEZ and documented this H&P. The patient is a 35 year old F who presented with a patient stated chief complaint of [pneumonia ]. History of Present Illness: 35-year-old woman was admitted for complaint of worsening short of breath cough and wheezing . Patient is a 35-year-old female with significant past medical history of TMJ dislocation on pain medication, IBS , chronic fibromyalgia, mild mild COPD with reversible terminal airway disease on 2 lit nocturnal O2, cryptogenic organizing pneumonia. Isaura was recently was recently discharged from [facility], back in 08/21/2016, on 30 mg of by mouth steroid daily for cryptogenic pneumonia. According to patient about 7-10 days ago she started having worsening cough with intermittent clear sputum, worsening wheezing and increase O2 demenad. Upon presenteation in the ED her O2 sat was 87% and patient was started was placed on 4 lit of NC O2 that corrected her sat to mid 90s %. Patient denies any fever, chills, chest pain, of dictation, joint pain, GI symptoms. No history of recent travel or sick contacts, she has been compliant with his steroid treatment and nebulizers. Lifetime nonsmoker/ no known occupational exposure to organic antigens. Vital signs at the time of admission were stable except for initial desaturaion to 87%. Allergies/Medications Allergies: Coded Allergies: NO KNOWN ALLERGIES (07/30/16) Home Med list Albuterol Sulfate (Proair Hfa) 90 MCG HFA.AER.AD 2 PUF INH Q4-6 PRN PRN RESPIRATORY (Reported) Budesonide/Formoterol Fumarate (Symbicort 160-4.5 Mcg Inhaler) 160 MCG-4.5 MCG/ ACTUATION HFA.AER.AD 2 PUF INH BID SOB (Reported) Cetirizine HCl (Zyrtec) 10 MG TABLET 1 TAB PO AT BEDTIME Allergies INSTRUCTED Montelukast Sodium 10 MG TABLET 1 TAB PO AT BEDTIME Allergies INSTRUCTED Omeprazole Magnesium 20 MG CAPSULE.DR 1 CAP PO DAILY GI (Reported) Oxycodone HCl 30 MG TABLET 1 TAB PO Q4P PRN PAIN Tiotropium [place] (Spiriva) 18 MCG CAP.W.DEV 1 CAP INH DAILY ASTHMA ( Reported) Trazodone HCl 50 MG TABLET 3 TAB PO QPM SLEEP (Reported) Compliance With Home Meds: GOOD Past History Travel History Traveled to [place] past 21 day No Medical History Neurological: NONE EENT: TMJ arthritis s/p jaw surgery at [facility] 2010 Cardiovascular: syncope (vasovagal(has had cardio eval)) Respiratory: asthma, bronchitis, pneumonia, cRYPTOGENIC ORGANIZING Gastrointestinal: constipation (IBS), irritable bowel syndrome Hepatic: NONE Renal: NONE Musculoskeletal: fibromyalgia Psychiatric: anxiety Endocrine: NONE Blood Disorders: NONE Cancer(s): NONE 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 FH: diabetes mellitus UNCLE-MATERNAL (BOOP). GRANDMOTHER-MATERNAL (CHF). Relation not specified for: FH: CAD (coronary artery disease) FH: HTN (hypertension) FH: ovarian cancer FH: uterine cancer Psychosocial History Where do you live? Home Who Do You Live With? SIGNIFICANT OTHER Services at Home: None Primary Language: Icelandic ETOH Use: occasional use Illicit Drug Use: denies illicit drug use Functional Ability ADLs Independent: dressing, eating, toileting, bathing. Ambulation: independent IADLs Independent: shopping, housework, finances, food prep, telephone, transportation , medication admin. Review of Systems Review of Systems Constitutional: Reports: see HPI. Denies: chills, diaphoresis, fever, malaise, weakness, unexplained weight loss. EENTM: Reports: see HPI. Cardiovascular: Reports: no symptoms. Respiratory: Reports: see HPI, cough, short of breath, sputum production. GI: Reports: see HPI. Genitourinary: Reports: see HPI. Musculoskeletal: Reports: see HPI. Skin: Reports: see HPI. Neurological/Psychological: Reports: see HPI. Hematologic/Endocrine: Reports: see HPI. Immunologic/Allergic: Reports: see HPI. All Other Systems: Reviewed and Negative Exam & Diagnostic Data Last 24 Hrs of Vital Signs/I&O Vital Signs Date Time Temp Pulse Resp B/P B/P Pulse O2 O2 Flow FiO2 Mean Ox Delivery Rate 09/28 1725 96.3 92 20 107/63 94 09/28 1444 98.2 100 21 138/76 94 Nasal 4.0L Cannula 09/28 1313 87 Nasal 4.0L Cannula 09/28 1307 91 Nasal 4.0L Cannula 09/28 1306 97.9 106 20 125/74 92 Nasal 4.0L Cannula Intake & Output 09/28 1600 09/28 0800 09/28 0000 Intake Total Output Total Balance Patient 160 lb Weight Weight Reported by Patient Measurement Method Physical Exam General Appearance Alert, Oriented X3, Cooperative, Mild Distress Skin No Rashes, No Breakdown HEENT Atraumatic, PERRLA, EOMI, Mucous Membr. moist/pink Neck Supple, No JVD, No thryomegaly, +2 Carotid Pulse wo Bruit, No LAD Lymphatic Axillary nl, Cervical nl Cardiovascular Normal S1, Normal S2, No Murmurs Lungs end expiratory wheeze, no cracking no rales Abdomen Soft, No Tenderness Neurological Normal Gait, Normal Speech, Strength at 5/5 X4 Ext Extremities No Cyanosis Last 24 Hrs of Labs/Luke: Laboratory Tests 09/28/16 1328: Anion Gap 13, Estimated GFR > 60, BUN/Creatinine Ratio 11.4, Glucose 82, Lactic Acid 0.8, Calcium 9.0, Total Bilirubin 0.8, AST 21, ALT 36, Alkaline Phosphatase 87, Total Protein 7.0, Albumin 4.2, Globulin 2.8, Albumin/Globulin Ratio 1.5, Total Beta HCG NEGATIVE, CBC w Diff NO MAN DIFF REQ, RBC 5.01, MCV 82.3, MCH 26.7 L, RDW 14.8 H, MPV 8.2, Gran % 54.8, Lymphocytes % 20.8, Monocytes % 6.2, Eosinophils % 17.8 H, Basophils % 0.4, Absolute Granulocytes 7.4 H, Absolute Lymphocytes 2.8, Absolute Monocytes 0.8 H, Absolute Eosinophils 2.4, Absolute Basophils 0.1, PUBS MCHC 32.5 L Microbiology 09/28 1625 BLOOD: Blood Culture - RECD 09/28 1605 BLOOD: Blood Culture - RECD Diagnostic Data CXR Results 1. Bilateral lower lungs opacities, can represent pneumonia. 2. A 1.1 cm right upper lobe nodular density. It is a new finding since the comparison CT scan and chest x-ray and could be artifactual and as the result of superimposed shadows. Consider further evaluation by standard PA and lateral chest x-rays, if clinically indicated. Assessment/Plan Assessment: 35-year-old woman was admitted for worsening this apnea. Pertinent findings Sodium 138, potassium 4.3, BUN 8, creatinine 0.7, CURB65 0.7% mortality and PS on 0.1% mortality score 24 class I WBC 13.4 no left shift no bandemia significant peripheral Eosinophilia Vital signs are stable. List of active problems #1 worsening dysrhythmia: List of differential diagnosis for this patient includes another flare of her mild COPD/terminal airway reversible disease overlap and or community acquired pneumonia in the setting of cryptogenic organizing pneumonia- was suggested by imaging finding patient refused lung biopsy; currently on 30 mg by mouth prednisone daily. She has elevated WBC(on by mouth steroids) without fever and one time documented O2 saturation of 87%. Her pneumonia severity index is are very low. She received 1 dose of ceftriaxone and azithro and steroid 125 mg IV in the emergency room. * Admit to general medical floor * Watch off antibiotics-if patient spikes fever cover for immunity acquired pneumonia (ceftriaxone plus azithromycin) * Please could produce a sputum sent sputum culture * Contact Dr. Broderick in the a.m. for pulmonology input # 2 Cryptogenic organizing pneumonia: Patient diagnosis of cryptogenic pneumonia was not confirmed with lung biopsy per patient refusal and wishes to follow [place] treatment with prednisone. 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 Slight change in CXR compare to the past. * Continue by mouth prednisone 30 mg by mouth daily * get stool test for parasite- R/O another cause of peripheral eosinophilia * Follow pulmonology recommendation #3 mild COPD and reversible terminal airway disease * Continue Symbicort 2 puff by mouth twice a day * Albuterol 2 puffs every 6 hours when necessary * Ipratropium 2.5 mL every 4 as needed for shortness of breath * Singulair 10 mg by mouth at bedtime # suspicious new lung nodule or mass * Chest Ct W/o CONTRAST #anxiety and difficulty sleeping * Trazodone 150 mg at bedtime DVT prophylaxis-heparin 5000 units subcutaneous every 8 Pain management-Tylenol 650 mg every 6 as needed for mild pain, oxycodone 30 mg every 4 as needed for severe pain Full code As Ranked By This Provider Problem List: 1. Cryptogenic organizing pneumonia 2. TMJ (temporomandibular joint syndrome) 3. Depression Core Measures/Miscellaneous Acute Coronary Syndrome ACS Diagnosis: No Cerebrovascular Accident CVA/TIA Diagnosis: No Congestive Heart Failure CHF Diagnosis: No Venous Thromboembolism VTE Risk Factors: Acute medical illness, Obesity No Mech VTE prophylaxis d/t: No contraindications No VTE Pharm Prophylaxis d/t: No contraindications VTE Diagnosis: No VTE Type: NONE VTE Confirmed by (Test): NONE Severe Sepsis Severe Sepsis Present: No Septic Shock Septic Shock Present: No Miscellaneous Documentation Attending Case Discussed With: LANDRY BRADSHAW MD Primary Care Physician: THEODORA OCONNOR MD Patient sees these Specialists Supervisor [employer] Level of Patient Care: General Medicine Consults Needed: Consulting Specialty: Pulmonary Disease Consulting Physician: Peggy CHAPARRO Reason for Consult: NARROW GAUGE OPERATOR Resident Review Statement Resident Statement: examined this patient LANDRY BRADSHAW MD 09/28/16 1849: Attending MD Review Statement Attending Statement Attending MD Statement: examined this patient, discuss w/resident/PA/HOME OFFICE REPRESENTATIVE, agreed w/resident/PA/HOME OFFICE REPRESENTATIVE, reviewed EMR data (avail) Attending Assessment/Plan: 35F PMH cryptogenic organizing pneumonia, anxiety admitted for shortness of breath at rest and with exertion and hypoxia to 84% in ED on room air at rest and with ambulation. Patient reports feeling weak and dyspneic the past few days, no infectious symptoms. Afebrile, stable vitals, labs reviewed. Bilateral mild rhonchi on exam, exam otherwise benign. 1. Cryptogenic organizing pneumonia 2. Acute hypoxemic respiratory failure 3. Anxiety Plan - Admit to general medicine - Watch off antibiotics for now - Increase Prednisone to 60mg daily (on 30mg at home) - Pulmonary consult - Nebulizer treatments - Continue home medication - CT chest - DVT PPx
--- NOTE | 2016-09-28 17:09 | NUR ---
HOUSE STAFF AT BEDSIDE WITH PT
--- NOTE | 2016-09-28 17:10 | NUR ---
REPORT GIVEN TO NURSE ON FLOOR
--- NOTE | 2016-09-28 17:14 | NUR ---
PT TO ROOM 229 BED 2
--- NOTE | 2016-09-28 17:50 | NUR ---
TERESA RODRIGEZ Nurse Note by: MELI WHIPPLE I agree with the PROOFING MACHINE OPERATOR findings/evaluation of this patient's condition. Entered by: MELI WHIPPLE Date: 09/28/16 Time: 7632
[2016-09-28 18:25] VITALS: BP 101/71
--- NOTE | 2016-09-28 18:49 | PN- Student ---
Subjective Subjective: Source: Patient and patient's boyfriend, reliable historians. HPI: Patient is a 35 year-old female with a PMH of TMJ dislocation on oxycodone, IBS, GERD, fibromyalgia, asthma (on 2L oxygen at night), cryptogenic organizing pneumonia, who presented with the [facility] ED with a chief complaint of worsening shortness of breath for the past two weeks. Patient decided to come to the ED after home pulse oximetry read 79%. Has been using albuterol inhaler with minimal improvement. Patient was discharged from on 08/21/16 on 30mg PO steroids for cryptogenic pneumonia. She notes the she comes to the ED and is admitted to about every 4-6 weeks for shortness of breath. She is a patient of Dr. Verdugo, but has not seen Dr. Verdugo for follow-up appointment since last discharge from hospital. She had to cancel her last appointment with Dr. Verdugo due to feeling nauseous and vomiting on day of appointment. Shortness of breath is associated with cough and wheezing, fatigue, headaches, and vomiting x2. Cough has occurred for the past 2 weeks, constant cough throughout the day and was productive for 1 week with clear sputum, but for the last week has been a dry cough with no sputum production. Pt describes headaches as "throbbing" and tension-type and occur bilaterally on forehead, occur 3-4 times per week in the morning, and do not wake her up at night. Headaches are worse when coughing, and motrin helps relieve them. Patient notes two episodes of nausea and vomiting in the past week. Vomited 1 week ago, which she thinks was due to a "stomach bug" from something she ate because her boyfriend also vomited one time. Patient vomited again 3 days ago and thinks it was due to not eating and feeling dehydrated. Patient has only felt nauseous around the time of vomiting. Notes no blood in vomit. ED Course: On ED admission, patient had oxygen saturation 87% and was put on 4L oxygen via NC. Oxygen corrected to 94-95%. Started on IV azithromycin 500mg one time. Continuous albuterol nebulizer given. ROS: denies fevers/chills, diarrhea, constipation, urinary symptoms, chest pain, lower extremity edema. Denies recent travel. PMH: -Asthma -Cryptogenic organizing pneumonia -IBS- constipation -GERD -Fibromyalgia -TMJ arthritis s/p jaw surgery in 2011 -Anxiety -Vasovagal syncope- has had cardiology evaluation -Surgeries: appendectomy, wisdom teeth removal, TMJ surgery, plantar wart removal Allergies: NKDA Home Medications: -Albuterol 2 puffs q4-6hrs prn for shortness of breath -Budesonide/Formoterol Fumarate 2 puffs BID for shortness of breath -Cetirizine HCl (Zyrtex) 10mg tablet PO qpm for allergies -Montelukast 10mg tablet PO qpm for asthma -Omeprazole 20mg capsule PO qday for GERD -Oxycodone 30mg tablet PO q4hrs prn for jaw pain -Tiotropium bromide 18mcg inhaled qday for asthma -Trazodone 150mg qpm for sleep -Prednisone 30mg, was planning on tapering down steroids at next visit with Dr. Verdugo -Patient notes good compliance with medications -Denies herbal supplement use Family History: -Father: asthma, DM -Maternal uncle: cryptogenic organizing pneumonia (BOOP), 20 yrs ago from it -Maternal grandmother: CHF Social History: -Denies tobacco use, has never smoked tobacco. -Denies alcohol use, has not had alcohol "for years". -Denies illicit drug use. -Boyfriend smokes tobacco. Patient notes that boyfriend does not smoke around her. -Lives with boyfriend. Objective Objective: Vital Signs Date Time Temp Pulse Resp B/P B/P Pulse O2 O2 Flow FiO2 Mean Ox Delivery Rate 09/28 1835 95 Nasal 4.0L Cannula 09/28 1825 98.1 101 18 101/71 94 Nasal 4.0L Cannula /06 1725 96.3 92 20 107/63 94 05/06 1444 98.2 100 21 138/76 94 Nasal 4.0L Cannula /06 1313 87 Nasal 4.0L Cannula / 1307 91 Nasal 4.0L Cannula 05/ 1306 97.9 106 20 125/74 92 Nasal 4.0L Cannula Intake & Output 05/06 1600 05/06 0800 05/06 0000 Intake Total Output Total Balance Patient 160 lb Weight Weight Reported by Patient Measurement Method Physical Exam: -General: cooperative, in no acute distress -Head: normocephalic, atraumatic -Eyes: EOMI, PERRLA, conjunctivae pink, sclerae anicteric -Nose: no nasal congestion, no trauma -Mouth: dentition good, moist mucous membranes, oropharynx without erythema/ exudates -Neck: supple, trachea midline, no lymphadenopathy -Lungs: no tenderness on chest palpation, bilateral inspiratory and expiratory wheezing heard diffusely, decreased air entry throughout. -Cardiovascular: regular rate and rhythm, S1, S2, no murmurs, rubs, or gallops; radial and PT pulses 2+ bilaterally -Abdomen: bowel sounds normal, soft, non-tender, no masses, no hepatosplenomegaly -Extremities: no clubbing, cyanosis, or edema; FROM bilaterally -Neuro: alert and oriented x3 Results Results: Laboratory Tests 09/28/16 1328: Anion Gap 13, Estimated GFR > 60, BUN/Creatinine Ratio 11.4, Glucose 82, Lactic Acid 0.8, Calcium 9.0, Total Bilirubin 0.8, AST 21, ALT 36, Alkaline Phosphatase 87, Total Protein 7.0, Albumin 4.2, Globulin 2.8, Albumin/Globulin Ratio 1.5, Total Beta HCG NEGATIVE, CBC w Diff NO MAN DIFF REQ, RBC 5.01, MCV 82.3, MCH 26.7 L, RDW 14.8 H, MPV 8.2, Gran % 54.8, Lymphocytes % 20.8, Monocytes % 6.2, Eosinophils % 17.8 H, Basophils % 0.4, Absolute Granulocytes 7.4 H, Absolute Lymphocytes 2.8, Absolute Monocytes 0.8 H, Absolute Eosinophils 2.4, Absolute Basophils 0.1, PUBS MCHC 32.5 L Microbiology 09/28 1758 STOOL: Cryptosporidium Antigen - COLB 09/28 1758 STOOL: Giardia Antigen (LEIDY) - COLB 09/28 175 LOWER RESP: Respiratory Culture - COLB 09/29 1755 LOWER RESP: Gram Stain - COLB 09/28 1625 BLOOD: Blood Culture - RECD 09/28 1605 BLOOD: Blood Culture - RECD EKG: sinus tachycardia 105 bpm, normal axis, normal intervals, no acute ST-T wave abnormalities. Imaging: Chest x-ray: 1. Bilateral lower lung opacities, can represent pneumonia 2. A 1.1 cm right upper lobe nodular density. This is a new finding since the comparison CT scan and CXR, and could be artifactual as the result of superimposed shadows. Consider further evaluation by standard PA and lateral CXRs if clinically indicated. Assessment/Plan Assessment: This is a 35 year-old female with PMH of TMJ dislocation on oxycodone, IBS, GERD , fibromyalgia, asthma (on 2L oxygen at night), cryptogenic organizing pneumonia , who presented with the [facility] ED with a chief complaint of worsening shortness of breath for the past two weeks. Was discharged from on 08/21/16 for cryptogenic organizing pneumonia. Associated with cough, wheezing, fatigue, headaches, and nausea and vomiting x2. On admission, oxygen saturation was 87%. Was put on 4L oxygen NC, continuous albuterol nebulizer, and azithromycin 500mg. Oxygen saturation improved to 95%, and patient noted that she felt less short of breath. Chest x-ray showed bilateral lower lung opacities. Labs notable for WBCs 13.4, eosinophils 17.8%. Differential Diagnosis: 1. Asthma exacerbation: given patient's PMH of asthma, worsening shortness of breath, wheezing, and that albuterol inhaler has been only helping her minimally , the patient could have an asthma exacerbation. Eosinophila could be due to asthma exacerbation. 2. Pneumonia- cryptogenic organizing pneumonia vs. community-acquired pneumonia vs. hospital acquired pneumonia: patient has had fatigue, cough, shortness of breath, but denies fevers. Bilateral lower lung opacities could represent pneumonia. Patient is at increased risk for pneumonia, as she has asthma. Patient was inpatient at 5 weeks ago, and could have hospital-acquired pneumonia. 3. Pulmonary embolism: less likely, as patient had CTA 5 weeks ago on last admission which ruled out PE. 4. Cardiovascular etiology: less likely. Patient had normal EKG, denied chest pain, denied leg swelling. Chest x-ray did not show cardiomegaly or edema. Plan: For shortness of breath and cough: -Admit to general medicine floor for further monitoring and evaluation. -Dr. Verdugo (soldering technician) will plan on seeing patient today. -Dr. Woods (soldering technician) will see patient tomorrow. -Follow pulmonology recommendations. -Will not increase steroid dose at this time- patient has been taking 30mg steroids regularly and was planning on tapering down steroids at next appointment with Dr. Verdugo. -Oxygen via nasal canula as needed for dyspnea. -Respiratory therapy- albuterol nebulizer therapy for dyspnea. -Consider no antibiotics at this time if asthma exacerbation is more likely. -Blood and sputum cultures pending. For headaches: -Ibuprofen 400mg q4-6hrs as needed (maximum 3,200mg/day). Sherif Birch, MS3
--- NOTE | 2016-09-28 18:52 | Admission Certification ---
Admission Certification Certification Statement - As attending physician, I certify that at the time of - admission, based on clinical presentation, severity of - symptoms, need for further diagnostic testing and - therapeutic interventions, and risk of adverse outcomes - without in-hospital treatment, in my clinical assessment, - this patient requires an acute hospital stay for a minimum - of two nights or longer. I have also considered psychsocial - factors such as support system, advanced age, financial - issues, cognitive issues, and failed out-patient treatments, - past re-admission history, safety of patient, and lack of - compliance as applicable. Specific rationale supporting this admission is: Cryptogenic organizing pneumonia with acute hypoxemic respiratory failure
--- NOTE | 2016-09-28 19:50 | NUR ---
1800- PT ARRIVED TO FLOOR VIA STRETCHER FROM ER. REPORT REC'D FROM JUANJOSE SPARKS RN. PT WITH STATUS ASTHMATIUS. O2 SAT 95% ON 4L NC. A/V/OX3. VSS. ORIENTED TO ROOM AND CALL LIGHT.
--- NOTE | 2016-09-28 20:28 | NUR ---
PT HAD A CXRAY DONE AROUND 1400. NOTICED A DUPLICATE ORDER FOR CXRY FOR NOW. CALLED DIRECTOR APPOINTMENT KEREN TO D/C IT. PT SENT FOR CT CHEST WITH DISTRIBUTION.
--- NOTE | 2016-09-28 22:40 | CT SCAN REPORT ---
EXAMINATION: CT CHEST WITHOUT CONTRAST CLINICAL INFORMATION: Shortness of breath. COMPARISON: CTA chest 07/31/2016. TECHNIQUE: Multidetector volumetric CT imaging of the chest was done. Axial MIP volume rendering provided. Sagittal and coronal reformatted images were obtained. DLP: 2:15 mGy-cm FINDINGS: CERTIFIED LACTATION COUNSELOR: Branch Library Clerk views of the chest demonstrate symmetric pulmonary expansion. LUNGS: Evaluation of the lung parenchyma demonstrates diffuse groundglass opacities within the bilateral lungs, notably within the bilateral upper lobes as well as within the right middle and bilateral lower lobes. These findings are nonspecific but may represent an infectious or inflammatory process. Pulmonary edema and hemorrhage can also present similarly. There is minimal debris within the right mainstem bronchus. The airways are otherwise patent, without endobronchial obstructing lesions. No suspicious pulmonary nodules or masses are identified. MEDIASTINUM: Subcentimeter mediastinal lymph nodes with associated central fatty linda. Normal heart size, without significant pericardial effusion. Bovine configuration of the aortic arch. No significant hilar adenopathy. A subcentimeter hypoattenuating nodule within the right thyroid gland measuring approximately 8 mm. This may represent a small thyroid gland nodule. PLEURA: There is no pleural effusion. No pleural mass or thickening. AXILLA: No lymphadenopathy. UPPER ABDOMEN: No acute findings within the upper abdomen. OSSEOUS STRUCTURES: No acute osseous abnormality. Normal alignment of the imaged thoracolumbar spine. IMPRESSION: Diffuse ground glass opacities within all lobes of the bilateral lungs, as detailed above. The visualized ossicles considerations include but are not limited to a diffuse infectious or inflammatory process. Pulmonary edema, inhalational injury and pulmonary hemorrhage can also present similarly. Correlate with patient clinical symptoms.
[2016-09-28 22:48] VITALS: BP 116/60
[2016-09-29 06:30] VITALS: BP 112/68
[2016-09-29 09:32] LABS: ABSOLUTE BASOPHIL COUNT 0 /CUMM (0.0-0.2); ABSOLUTE EOSINOPHIL COUNT 0 /CUMM (0.0-0.7); ABSOLUTE GRANULOCYTE CT 12.6 /CUMM (1.4-6.5); ABSOLUTE LYMPH COUNT 1.6 /CUMM (1.2-3.4); ABSOLUTE MONOCYTE COUNT 0.3 /CUMM (0.10-0.60); BASOPHIL % 0.3 % (0.0-2.0); EOSINOPHIL % 0 % (0-5); HEMATOCRIT 38.2 % (37-47); MEAN CORPUSCULAR HGB CONC 32.7 G/DL (33.0-37.0); MEAN CORPUSCULAR VOLUME 82.5 FL (81.0-99.0); MEAN PLATELET VOLUME 8.4 FL (7.4-10.4); PLATELET COUNT 321 /CUMM (130-400); RBC DISTRIBUTION WIDTH 14.9 % (11.5-14.5); RED BLOOD CELL CT 4.64 /CUMM (4.20-5.40); WHITE BLOOD CELL COUNT 14.6 /CUMM (4.8-10.8)
--- NOTE | 2016-09-29 10:31 | Cons- Pulmonary ---
General Information and HPI Consulting Request Date of Consult: 09/29/16 Requested By: javy Reason for Consult: Shortness of breath History of Present Illness: This is 35-year-old who carries a diagnosis of cryptogenic organizing pneumonia admitted with increasing shortness of breath. CT scan shows diffuse groundglass opacities in conjunction with marked eosinophilia. Patient denies any environmental exposures. She was to followed up for further evaluation but was nonadherent Allergies/Medications Allergies: Coded Allergies: NO KNOWN ALLERGIES (07/30/16) Home Med List: Albuterol Sulfate (Proair Hfa) 90 MCG HFA.AER.AD 2 PUF INH Q4-6 PRN PRN RESPIRATORY (Reported) Budesonide/Formoterol Fumarate (Symbicort 160-4.5 Mcg Inhaler) 160 MCG-4.5 MCG/ ACTUATION HFA.AER.AD 2 PUF INH BID SOB (Reported) Cetirizine HCl (Zyrtec) 10 MG TABLET 1 TAB PO AT BEDTIME Allergies INSTRUCTED Montelukast Sodium 10 MG TABLET 1 TAB PO AT BEDTIME Allergies INSTRUCTED Omeprazole Magnesium 20 MG CAPSULE.DR 1 CAP PO DAILY GI (Reported) Oxycodone HCl 30 MG TABLET 1 TAB PO Q4P PRN PAIN Tiotropium [place] (Spiriva) 18 MCG CAP.W.DEV 1 CAP INH DAILY ASTHMA ( Reported) Trazodone HCl 50 MG TABLET 3 TAB PO QPM SLEEP (Reported) Review of Systems Review of Systems Constitutional: Denies: chills, fever. Cardiovascular: Denies: chest pain. Respiratory: Reports: short of breath. Past History Travel History Traveled to [place] past 21 day No Medical History Blood Transfusion Hx: No Neurological: FIBROMYALGIA EENT: TMJ arthritis s/p jaw surgery at [facility] 2010 Cardiovascular: syncope (vasovagal(has had cardio eval)) Respiratory: asthma, bronchitis, pneumonia, cRYPTOGENIC ORGANIZING Gastrointestinal: constipation (IBS), irritable bowel syndrome Hepatic: NONE Renal: NONE Musculoskeletal: fibromyalgia Psychiatric: anxiety Endocrine: NONE Blood Disorders: NONE Cancer(s): NONE HARPOONER/Reproductive: NONE Surgical History Surgical History: appendectomy, plantar wart removal jaw surgery for TMJ Family History Relations & Conditions If Any: FATHER (Asthma). FH: diabetes mellitus UNCLE-MATERNAL (BOOP). GRANDMOTHER-MATERNAL (CHF). Relation not specified for: FH: CAD (coronary artery disease) FH: HTN (hypertension) FH: ovarian cancer FH: uterine cancer Psychosocial History Where Do You Live? Home Who Do You Live With? SIGNIFICANT OTHER Services at Home: None Primary Language: Romanian Smoking Status: Never Smoked ETOH Use: occasional use Illicit Drug Use: denies illicit drug use Functional Ability ADLs Independent: dressing, eating, toileting, bathing. Ambulation: independent IADLs Independent: shopping, housework, finances, food prep, telephone, transportation , medication admin. Exam & Diagnostic Data Last 24 Hrs of Vital Signs/I&O Vital Signs Date Time Temp Pulse Resp B/P B/P Pulse O2 O2 Flow FiO2 Mean Ox Delivery Rate 09/29 0810 95 Nasal 4.0L Cannula 09/29 0630 98.6 75 18 112/68 95 Nasal 4.0L Cannula 09/29 0022 Nasal 4.0L Cannula 09/29 0000 Nasal 4.0L Cannula / 2248 98.4 89 20 116/60 95 Nasal 4.0L Cannula / 1835 95 Nasal 4.0L Cannula /06 1825 98.1 101 18 101/71 94 Nasal 4.0L Cannula /06 1725 96.3 92 20 107/63 94 05/06 1444 98.2 100 21 138/76 94 Nasal 4.0L Cannula /06 1313 87 Nasal 4.0L Cannula /06 1307 91 Nasal 4.0L Cannula 05/06 1306 97.9 106 20 125/74 92 Nasal 4.0L Cannula Intake & Output / 1600 05/07 0800 05/07 0000 Intake Total 100 100 Output Total Balance 100 100 Intake, Oral 100 100 Patient 160 lb Weight Oxygen saturation 4 L 95% exam for chest shows clear lung vargas rare crackles without wheezing cardiac exam shows normal S1 and S2 without murmurs Last 48 Hrs of Labs/Luke: Laboratory Tests 09/29/16 0717: CBC w Diff Pending, WBC Pending, RBC Pending, Hgb Pending, Hct Pending, MCV Pending, MCH Pending, RDW Pending, Plt Count Pending, MPV Pending, PUBS MCHC Pending 09/28/16 1328: Anion Gap 13, Estimated GFR > 60, BUN/Creatinine Ratio 11.4, Glucose 82, Lactic Acid 0.8, Calcium 9.0, Total Bilirubin 0.8, AST 21, ALT 36, Alkaline Phosphatase 87, Total Protein 7.0, Albumin 4.2, Globulin 2.8, Albumin/Globulin Ratio 1.5, Total Beta HCG NEGATIVE, CBC w Diff NO MAN DIFF REQ, RBC 5.01, MCV 82.3, MCH 26.7 L, RDW 14.8 H, MPV 8.2, Gran % 54.8, Lymphocytes % 20.8, Monocytes % 6.2, Eosinophils % 17.8 H, Basophils % 0.4, Absolute Granulocytes 7.4 H, Absolute Lymphocytes 2.8, Absolute Monocytes 0.8 H, Absolute Eosinophils 2.4, Absolute Basophils 0.1, PUBS MCHC 32.5 L Assessment/Plan Impression/Plan: 35-year-old who is had intermittent marked eosinophilia pulmonary infiltrates of uncertain etiology. Concern is raised over differential of hypersensitivity pneumonitis. Or eosinophilic associated lung diseases Recommendations: Sputum for eosinophils. Continue current medical regimen. Dr. Verdugo will follow-up tomorrow. Taper FiO2 his saturations allow. Would need to reconsider fiberoptic bronchoscopy with lavage and biopsy Consult Acknowledgment - Thank you for your consult request.
[2016-09-29 10:55] LABS: GRANULOCYTE % 86.3 % (42.2-75.2)
--- NOTE | 2016-09-29 13:41 | PN- Att Addend ---
Attending Addendum Attending Brief Note 35F PMH cryptogenic organizing pneumonia, anxiety admitted for shortness of breath at rest and with exertion and hypoxia to 84% in ED on room air at rest and with ambulation. Patient reports feeling weak and dyspneic the past few days, no infectious symptoms. Afebrile, stable vitals, labs reviewed. Bilateral mild rhonchi on exam, exam otherwise benign. AFVSS NAD NCAT Supple RRR Coarse breath sounds bilaterally Soft, NTND No c/c/e Pulses intact A&Ox3 no focal deficits Current Medications Sig/Nathan Start time Last Medication Dose Route Stop Time Status Admin Albuterol Sulfate 3 ML EVERY 4 HRS/AWAKE 09/29 0815 AC 09/29 INH 1146 Albuterol Sulfate 2 PUF Q4-6 PRN PRN 09/28 171 AC INH Azithromycin 500 MG ONCE ONE 09/28 1600 DC 09/28 Sodium Chloride 250 ML IV 09/28 1659 1630 Budesonide/ 2 PUF BID 09/28 2200 AC 09/29 Formoterol Fumarate INH 1036 Ceftriaxone Sodium 1,000 MG ONCE ONE 09/28 1600 DC 09/28 IV 09/28 1601 1630 Heparin Sodium 5,000 UNIT Q8 09/28 1708 AC 09/29 (Porcine) SC 1324 Ipratropium [place] 2.5 ML Q4 HRS NEEDED PRN 09/28 171 AC INH Montelukast Sodium 10 MG AT BEDTIME 09/28 2200 AC 09/28 PO 2131 Omeprazole 20 MG DAILY AC 09/29 0700 AC 09/29 PO 0654 Oxycodone HCl 30 MG Q4P PRN 09/28 1715 09/29 PO 1041 Patient Medication 1 UNIT ONE NR 09/28 171 [place] Teaching ED 09/28 1730 Patient Medication 1 UNIT ONE NR 09/28 1715 [facility] ED 09/28 1730 Patient Medication 1 UNIT ONE NR 09/28 171 [facility] ED 09/28 1730 Prednisone 60 MG DAILY 09/29 1000 AC 09/29 PO 1036 Trazodone HCl 150 MG QPM 09/28 2200 AC 09/28 PO 2131 Laboratory Tests 09/29 0717 Hematology CBC w Diff NO MAN DIFF REQ WBC (4.8 - 10.8 /CUMM) 14.6 H RBC (4.20 - 5.40 /CUMM) 4.64 Hgb (12.0 - 16.0 G/DL) 12.5 Hct (37 - 47 %) 38.2 MCV (81.0 - 99.0 FL) 82.5 MCH (27.0 - 31.0 PG) 27.0 RDW (11.5 - 14.5 %) 14.9 H Plt Count (130 - 400 /CUMM) 321 MPV (7.4 - 10.4 FL) 8.4 Gran % (42.2 - 75.2 %) 86.3 H Lymphocytes % (20.5 - 51.1 %) 11.2 L Monocytes % (1.7 - 9.3 %) 2.2 Eosinophils % (0 - 5 %) 0 Basophils % (0.0 - 2.0 %) 0.3 Absolute Granulocytes (1.4 - 6.5 /CUMM) 12.6 H Absolute Lymphocytes (1.2 - 3.4 /CUMM) 1.6 Absolute Monocytes (0.10 - 0.60 /CUMM) 0.3 Absolute Eosinophils (0.0 - 0.7 /CUMM) 0 Absolute Basophils (0.0 - 0.2 /CUMM) 0 PUBS MCHC (33.0 - 37.0 G/DL) 32.7 L 1. Cryptogenic organizing pneumonia 2. Acute hypoxemic respiratory failure 3. Anxiety Plan - Admit to general medicine - Watch off antibiotics for now - Increase Prednisone to 60mg daily (on 30mg at home) - Pulmonary consult - Nebulizer treatments - Continue home medication - CT chest - DVT PPx
[2016-09-29 14:52] VITALS: BP 118/72
--- NOTE | 2016-09-29 15:41 | NUR ---
ORDER PLACED FOR STOOL FOR OVA AND PARASITE. DISCUSSED WITH DR. MENDIOLA TO WHY ORDER WAS PLACED. MD UNSURE OF WHY ORDER WAS PLACED. PER MD, NO NEED TO SEND STOOL CX'S. REQUESTED ORDER TO BE CANCELLED.
--- NOTE | 2016-09-29 17:29 | Event Note ---
Event Note Event Note: I called laboratory regarding how best to order for sputum eosinophils as recommended per pulmonology. I was informed that it was not a routine test performed in hospital and that only urine could be tested for eosinophils. As such I could not order the recommended test. This will likely have to be followed up on Saturday 09/30.
[2016-09-29 22:32] VITALS: BP 110/64
[2016-09-30 06:30] VITALS: BP 118/60
--- NOTE | 2016-09-30 08:51 | PN- Housestaff ---
ARLENE CHAPARRO,ERIC 09/30/16 0851: Subjective Follow-up For: Eosinophilic pneumonia Subjective: Saw patient at bedside this a.m. She was asleep but arousable. Stated she had no overnight events or complaints. She remains on 3 L nasal cannula. Her home O2 requirement at night is tWO. She said she was too sleepy to answer many of my questions but that she wanted to speak with Dr. Verdugo. Review of Systems Constitutional: Reports: no symptoms. EENTM: Reports: no symptoms. Objective Last 24 Hrs of Vital Signs/I&O Vital Signs Date Time Temp Pulse Resp B/P B/P Pulse O2 O2 Flow FiO2 Mean Ox Delivery Rate 09/30 1610 93 Nasal 3.0L Cannula 09/30 1600 Nasal 3.0L Cannula 09/30 1450 98.7 83 20 110/60 93 Nasal 4.0L Cannula 09/30 0808 94 Nasal 4.0L Cannula 09/30 0800 95 Nasal 3.0L Cannula 09/30 0630 98.4 85 18 118/60 96 Nasal 4.0L Cannula 09/30 0000 Nasal 4.0L Cannula 09/29 2232 98.2 72 18 110/64 92 Nasal 4.0L Cannula Intake & Output 09/30 1600 08 0800 05/08 0000 Intake Total 720 100 100 Output Total Balance 720 100 100 Intake, Oral 720 100 100 Physical Exam General Appearance: Alert, Oriented X3, Cooperative, No Acute Distress Skin: No Significant Lesion HEENT: Mucous Membr. moist/pink Neck: Supple Cardiovascular: Regular Rate, Normal S1, Normal S2, No Murmurs Lungs: DIFFUSE WHEEZES BILAT Abdomen: Soft, No Tenderness Neurological: Normal Speech Current Medications: Current Medications Sig/Nathan Start time Last Medication Dose Route Stop Time Status Admin Albuterol Sulfate 3 ML EVERY 4 HRS/AWAKE 09/29 0815 AC 09/30 INH 1610 Albuterol Sulfate 2 PUF Q4-6 PRN PRN 09/28 1715 AC INH Budesonide/ 2 PUF BID 09/28 2200 AC 09/30 Formoterol Fumarate INH 0951 Heparin Sodium 5,000 UNIT Q8 09/28 1708 AC 09/30 (Porcine) SC 1339 Ipratropium Elsie 2.5 ML Q4 HRS NEEDED PRN 09/28 1715 AC INH Montelukast Sodium 10 MG AT BEDTIME 09/280 AC 09/29 PO 2036 Omeprazole 20 MG DAILY AC 09/29 0700 MO 09/30 PO 0541 Oxycodone HCl 30 MG Q4P PRN 09/28 1715 AC 09/30 PO 1531 Patient Medication 1 ED .STK-MED ONE 09/30 1407 [facility] ED 09/30 1408 Prednisone 70 MG DAILY 09/30 1000 AC 09/30 PO 0951 Prednisone 60 MG DAILY 09/29 1000 DC 09/29 PO 1036 Trazodone HCl 150 MG QPM 09/28 2200 AC 09/29 PO 203 Last 24 Hrs of Lab/Luke Results Last 24 Hrs of Labs/Mics: Laboratory Tests 09/30/16 0640: Anion Gap 7, Estimated GFR > 60, BUN/Creatinine Ratio 24.3, CBC w Diff NO MAN DIFF REQ, RBC 4.30, MCV 82.8, MCH 26.8 L, RDW 15.1 H, MPV 8.7, Gran % 81.5 H, Lymphocytes % 12.0 L, Monocytes % 6.2, Eosinophils % 0.1, Basophils % 0.2, Absolute Granulocytes 12.7 H, Absolute Lymphocytes 1.9, Absolute Monocytes 1.0 H, Absolute Eosinophils 0, Absolute Basophils 0, PUBS MCHC 32.4 L 09/30/16 0600: IgE Pending Assessment/Plan Assessment: This is a 35-year-old female with past medical history significant for TMJ on chronic pain meds, IBS, 5 neuralgia, COPD, reactive airway disease, on 2 L nasal cannula at night, with numerous admissions in the past year for "cryptogenic organizing pneumonia." Patient was recently discharged from [facility] on 08/21/2016 with steroids. However she returns with same chief complaint of shortness of breath. He is admitted to general med floor for further management of shortness of breath and workup for possible cryptogenic organizing pneumonia. CT chest: IMPRESSION: Diffuse ground glass opacities within all lobes of the bilateral lungs, as detailed above. The visualized ossicles considerations include but are not limited to a diffuse infectious or inflammatory process. Pulmonary edema, inhalational injury and pulmonary hemorrhage can also present similarly. Correlate with patient clinical symptoms. PLAN Worsening shortness of breath: Patient carries a previous exit organizing pneumonia. However this diagnosis was not based on Friday biopsy as patient has previously refused this procedure. She has been discharged with empiric 30 mg prednisone treatment. Her CT chest shows groundglass opacities in all lobes of both lungs. Patient is on nocturnal nasal cannula 2 L at home. She does live with partner who is a current heavy smoker. Note that admission patient had significant eosinophilia of 17.8%. Previously she has been as high as 20% eosinophilia. This would not be necessarily consistent with a diagnosis of organic organizing pneumonia. * She received Ceftriaxone and azithromycin 1 AND Solu-Medrol 125 mg 1 in ED * Pulmonary consult with Dr. Verdugo who is her quality assurance supervisor * Follow-up Sputum eosinophilia * Follow-up IgE * Nasal cannula for saturations greater than 92%. * Prednisone 70mg daily; per pulmonology recommendations * Discontinue PPI as it can cause peripheral eosinophilia * Monitor patient off antibiotics * Consider stool testing for ruling out causes of eosinophilia Positive blood culture: One out of 2 blood cultures are positive for GPC, GPR. Upon speaking with the lab, most likely this represents coag negative staph and diphtheroids. Most likely contaminant. * No antibiotics required COPD/reactive airway disease: * Continue nebs * TRC Lung nodule: Patient has cxr finding of possible 1.1 cm lung nodule * F/U Pulmonary recommendations Anxiety/insomnia: Chronic and stable * Continue trazodone Problem List: 1. Multifocal pneumonia 2. Asthma 3. Hypoxia Pain Ratin Pain Location: NONE Pain Goal: Remain pain free Pain Plan: NONE Tomorrow's Labs & Rationales: CBC BEP DVT/Prophylaxis: pharmacological Consulting Request: Consulting Specialty: Pulmonary Disease Consulting Physician: Peggy CHAPARRO Reason for Consult: MELINA LAGOS 09/30/16 1347: Attending MD Review Statement Attending Statement Attending MD Statement: examined this patient, discuss w/resident/PA/OPERATIONS PLANT ATTENDANT, agreed w/resident/PA/OPERATIONS PLANT ATTENDANT, discussed with family, reviewed EMR data (avail), discussed with nursing, discussed with case mgmt, reviewed images, amended to note Attending Assessment/Plan: 1. Cryptogenic organizing pneumonia 2. Acute hypoxemic respiratory failure improving 3. Peripheral eosniophilia 4. Asthma vs ?eosinophil pneumonia Plan - Admit to general medicine - Watch off antibiotics for now, oxygen supplementation as needed. - Increased Prednisone to 70mg daily (on 30mg at home) - Pulmonary appreciated, sputum for eosinophils. - Nebulizer treatments - Discontinue PPI/omeprazole. prn antacids. - CT chest with b/l ground glass opacities. - DVT PPx
[2016-09-30 08:53] LABS: ABSOLUTE BASOPHIL COUNT 0 /CUMM (0.0-0.2); ABSOLUTE EOSINOPHIL COUNT 0 /CUMM (0.0-0.7); ABSOLUTE GRANULOCYTE CT 12.7 /CUMM (1.4-6.5); ABSOLUTE LYMPH COUNT 1.9 /CUMM (1.2-3.4); BASOPHIL % 0.2 % (0.0-2.0); EOSINOPHIL % 0.1 % (0-5); GRANULOCYTE % 81.5 % (42.2-75.2); HEMATOCRIT 35.6 % (37-47); MEAN CORPUSCULAR HGB 26.8 PG (27.0-31.0); MEAN CORPUSCULAR HGB CONC 32.4 G/DL (33.0-37.0); MEAN CORPUSCULAR VOLUME 82.8 FL (81.0-99.0); MEAN PLATELET VOLUME 8.7 FL (7.4-10.4); PLATELET COUNT 328 /CUMM (130-400); RBC DISTRIBUTION WIDTH 15.1 % (11.5-14.5); WHITE BLOOD CELL COUNT 15.6 /CUMM (4.8-10.8)
--- NOTE | 2016-09-30 09:07 | PN- Pulmonary ---
Subjective HPI/Critical Care Issues: pt seen and examined weekend events reviewed 94% on 4LNC hemodynamically stable and afebrile CT reviewed Diffuse ground glass opacities within all lobes of the bilateral lungs. Objective Current Medications: Current Medications Sig/Nathan Start time Last Medication Dose Route Stop Time Status Admin Albuterol Sulfate 3 ML EVERY 4 HRS/AWAKE 09/30 0715 AC 09/30 INH 0804 Albuterol Sulfate 2 PUF Q4-6 PRN PRN 09/28 1715 AC INH Budesonide/ 2 PUF BID 09/28 220 AC 09/29 Formoterol Fumarate INH 2033 Heparin Sodium 5,000 UNIT Q8 09/28 1708 AC 09/30 (Porcine) SC 0541 Ipratropium [place] 2.5 ML Q4 HRS NEEDED PRN 09/28 171 AC INH Montelukast Sodium 10 MG AT BEDTIME 09/28 2200 AC 09/29 PO 2036 Omeprazole 20 MG DAILY AC 09/29 0700 AC 09/30 PO 0541 Oxycodone HCl 30 MG Q4P PRN 09/28 1715 AC 09/30 PO 0541 Prednisone 60 MG DAILY 09/29 1000 AC 09/29 PO 1036 Trazodone HCl 150 MG QPM 09/28 2200 AC 09/29 PO 2032 Vital Signs & I&O Last 24 Hrs of Vitals and I&O: Vital Signs Date Time Temp Pulse Resp B/P B/P Pulse O2 O2 Flow FiO2 Mean Ox Delivery Rate 10/01 807 94 Nasal 4.0L Cannula 09/30 0630 98.4 85 18 118/60 96 Nasal 4.0L Cannula 09/30 0000 Nasal 4.0L Cannula 09/29 2232 98.2 72 18 110/64 92 Nasal 4.0L Cannula 09/29 1630 91 Nasal 4.0L Cannula 09/29 1452 98.0 107 20 118/72 93 Intake & Output 09/30 1600 09/30 0800 09/30 0000 Intake Total 100 100 Output Total Balance 100 100 Intake, Oral 100 100 Exam Other Physical Findings: gen awake and alert heent ncat cvs s1, s2 lungs scattered rhonchi abd soft bs+ ext without edema Results Last 24 Hrs of Lab Results: Laboratory Tests 09/30/16 0640: Anion Gap 7, Estimated GFR > 60, BUN/Creatinine Ratio 24.3, CBC w Diff Pending, WBC Pending, RBC Pending, Hgb Pending, Hct Pending, MCV Pending, MCH Pending, RDW Pending, Plt Count Pending, MPV Pending, PUBS MCHC Pending Impression/Plan Impression/Plan Impression/Plan: Impression 35 year old woman * presumed cryptogenic organizing pneumonia * acute hypoxemic respiratory failure * anxiety * Resolved Eosinophilia Plan - TRC/Nebs - singulair - symbicort continue - cont prednisone 60mg - sputum should be sent for eosinophils - this can be done while the patient is here, inform the lab - check IgE - would increase prednisone to 70mg (1mg/kg) - bronchoscopy less likely to provide yield at this point, if no improvement would consider open lung biopsy DVT prophylaxis at all times
--- NOTE | 2016-09-30 14:43 | PN- Student ---
Subjective Subjective: CC: Worsening shortness of breath, coughing, and wheezing HPI: Patient is a 35-year-old woman with a past medical history significant for anxiety, chronic fibromyalgia, irritable bowel syndrome, asthma, bronchitis, cryptogenic organizing pneumonia, vasovagal pneumonia, and TMJ arthritis who presented to [facility] complaining of worsening shortness of breath, coughing, and wheezing. Symptoms have been present for the past 7-10 days with intermittent production of clear sputum. On ED admission, her O2 saturation was 84% where she was subsequently put on 2L of O2 with some effect. On arrival to the general medicine floor, O2 saturation was 95% on 4L of O2 via nasal canula. Patient was recently discharged from [facility] in 08/21/2016 with 30 mg Prednisone by mouth for Cryptogenic organizing pneumonia. Patient denies any fever, chills, chest pain joint pain, GI symptoms. Past Medical History: Anxiety, chronic fibromyalgia, irritable bowel syndrome, asthma, bronchitis, cryptogenic organizing pneumonia, vasavagal syncope, TMJ arthritis Past Surgical History: Appendectomy, plantar wart removal, jaw surgery for TMJ Family History: Father: Asthma, Diabetes mellitus Maternal uncle: Bronchiolitis [place]iter[place] with Organizing Pneumonia (BOOP) Maternal grandmother: CHF Psychosocial History: Patient lives with her significant other at home. Reports occasional alcohol use. Denies illicit drug use. Home Medication List: Albuterol Sulfate (Proair Hfa) 90 Mcg HFA.AER.AD - 2 PUF INH Q4-6 PRN ( Respiratory) Budesonide/Formoterol Fumarate (Symbicort) 160 Mcg-4.5 Mcg/Actuation HFA.AER.AD - 2 PUF INH BID (Shortness of Breath) Cetirizine HCl (Zyrtec) 10 mg Tablet - 1 Tab PO at Bedtime (Allergies) INSTRUCTED Montelukast Sodium 10 mg Tablet - 1 Tab PO at Bedtime (Allergies) INSTRUCTED Omeprazole Magnesium 20 mg Capsule.DR - 1 CAP PO Daily (GI) Oxycodone HCl 30 mg Tablet - 1 Tab PO Q4P PRN (Pain) Tiotropium [place] (Spiriva) 18 Mcg CAP.W.DEV - 1 CAP INH Daily (Asthma) Trazodone HCl 50 mg Tablet - 3 Tab PO QPM (Sleep) Allergies: No known allergies Objective Objective: Vital Signs Date Time Temp Pulse Resp B/P B/P Pulse O2 O2 Flow FiO2 Mean Ox Delivery Rate 09/30 0808 94 Nasal 4.0L Cannula 09/30 0800 95 Nasal 3.0L Cannula 09/30 0630 98.4 85 18 118/60 96 Nasal 4.0L Cannula 09/30 0000 Nasal 4.0L Cannula 09/29 2232 98.2 72 18 110/64 92 Nasal 4.0L Cannula 09/29 1630 91 Nasal 4.0L Cannula 09/29 1452 98.0 107 20 118/72 93 Intake & Output 09/30 1600 09/30 0800 05 0000 Intake Total 100 100 Output Total Balance 100 100 Intake, Oral 100 100 Physical Exam: General Appearance Alert, Oriented X3, Cooperative Skin No Rashes, No Breakdown HEENT Atraumatic, PERRLA, EOMI, Mucous Membr. moist/pink Neck Supple, No JVD, No thryomegaly, +2 Carotid Pulse wo Bruit, No LAD Lymphatic Axillary nl, Cervical nl Cardiovascular Normal S1, Normal S2, No Murmurs Lungs Diffuse bilateral inspiratory/expiratory wheezing Abdomen Soft, No Tenderness Neurological Normal Gait, Normal Speech, Strength at 5/5 X4 Ext Extremities No Cyanosis Current Medications Sig/Nathan Start time Last Medication Dose Route Stop Time Status Admin Albuterol Sulfate 3 ML EVERY 4 HRS/AWAKE 09/29 0815 AC 09/30 INH 1140 Albuterol Sulfate 2 PUF Q4-6 PRN PRN 09/28 1715 AC INH Budesonide/ 2 PUF BID 09/28 2200 AC 09/30 Formoterol Fumarate INH 0951 Heparin Sodium 5,000 UNIT Q8 09/28 1708 AC 09/30 (Porcine) SC 1339 Ipratropium [place] 2.5 ML Q4 HRS NEEDED PRN 09/28 1715 AC INH Montelukast Sodium 10 MG AT BEDTIME 09/28 2200 AC 09/29 PO 2036 Omeprazole 20 MG DAILY AC 09/29 0700 DC 09/30 PO 0541 Oxycodone HCl 30 MG Q4P PRN 09/28 1715 09/30 PO 0955 Patient Medication 1 ED .STK-MED ONE 09/30 1407 DC Teaching ED 09/30 1408 Prednisone 70 MG DAILY 09/30 1000 AC 09/30 PO 0951 Prednisone 60 MG DAILY 09/29 1000 DC 09/29 PO 1036 Trazodone HCl 150 MG QPM 09/28 2200 AC 09/29 PO 2031 Assessment/Plan Assessment: Patient is a 35-year-old woman with a past medical history significant for anxiety, chronic fibromyalgia, irritable bowel syndrome, asthma, bronchitis, cryptogenic organizing pneumonia, vasovagal pneumonia, and TMJ arthritis who presented to [facility] complaining of worsening shortness of breath, coughing, and wheezing. Symptoms have been present for the past 7-10 days with intermittent production of clear sputum. 1 - Acute Hypoxemic Respiratory Failure 2 - Chronic Eosinophilic Pneumonia vs Asthma vs Cryptogenic Organizing Pneumonia 3 - Eosinophilia 4 - Anxiety 1. Acute Hypoxemic Respiratory Failure. Patient presented to the ED with worsening shortness of breath, coughing, wheezing, and an O2 saturation of 84%. * Predisone 70 mg daily * Symbicort 2 PUFF PO BID * Albuterol 2 PUFF Q6 as needed * Ipratropium 2.5 mL Q4 as needed * Singulair 10 mg PO at bedtime 2. Chronic Eosinophilic Pneumonia vs Asthma vs Cryptogenic Organizing Pneumonia. Patient had an eosinophil count of 17.8 on admission. She was previously discharged from [facility] in 08/21/2016 with 30 mg Prednisone PO for Cryptogenic Organizing Pneumonia. * Sputum culture for eosinophils * Check IgE * Bronchoscopy less likely to provide yield as per Pulmonary consult * If no improvement seen, consider open-lung biopsy 3. Eosinophilia. Eosinophil count on admission was 17.8. * Resolved * Prednisone 70 mg daily 4. Anxiety. * Trazodone 150 mg at bedtime DVT Prophylaxis - Heparin 5000 Units SQ Q8 Pain management - Tylenol 650 mg Q6 (Mild), Oxycodon 30 mg Q4 (Severe) Full code
[2016-09-30 14:50] VITALS: BP 110/60
--- NOTE | 2016-09-30 16:54 | NUR ---
SHIFT NOTE: PT A/V/OX3. IND OOB, STEADY GAIT NOTED. PT REQUESTING PAIN MEDICATIONS AT 1500. PT ON ROXICODONE 30MG PO Q4. PT GIVEN ROXICODONE 30MG PER EMAR FOR A PAIN OF 7/10 TO JAW AND LOWER BACK. PT ON 3LNC, PRN O2 AT HOME AT BEDTIME. EXP & INSP WHEEZES NOTED. PT HAS NONPRODUCTIVE COUGH. #20 LH FLUSHING EASILY. PT SLEEPING AT THIS TIME. WILL CONTINUE TO MONITOR.
[2016-09-30] MEDS ORDERED: PREDNISONE20 M1 PO (20:00)
--- NOTE | 2016-09-30 20:02 | Patient Discharge Instructions ---
Discharge Instructions General Discharge Information You were seen/treated for: SHORTNESS OF BREATH Special Instructions: PLEASE F/U WITH YOUR PCP IN 1 WEEK OF DISCHARGE. PLEASE F/U WITH DR GAMBLE IN 1-2 WEEK OF DISCHARGE Diet Continue normal diet: Yes Activity Full Activity/No Limits: Yes Acute Coronary Syndrome Inclusion Criteria At DC or during hospital stay patient has or had the following: ACS DIAGNOSIS No Discharge Core Measures Meds if any: Prescribed or Continued at Discharge Meds if any: NOT Prescribed or Continued at Discharge Congestive Heart Failure Inclusion Criteria At DC or during hospital stay patient has or had the following: CHF DIAGNOSIS No Discharge Core Measures Meds if any: Prescribed or Continued at Discharge Meds if any: NOT Prescribed or Continued at Discharge Cerebrovascular accident Inclusion Criteria At DC or during hospital stay patient has or had the following: CVA/TIA Diagnosis No Discharge Core Measures Meds if any: Prescribed or Continued at Discharge Meds if any: NOT Prescribed or Continued at Discharge Venous thromboembolism Inclusion Criteria VTE Diagnosis No VTE Type NONE VTE Confirmed by (Test) NONE Discharge Core Measures - Per Current guidelines, there needs to be overlap - treatment for the first 5 days of Warfarin therapy. - If discharged on Warfarin prior to 5 days of - overlap therapy, the patient will need to be - assessed for post discharge needs including - *Post discharge parental anticoagulation - *Warfarin and/or parental anticoagulation education - *Follow up date to check INR post discharge At least 5 days overlap therapy as Inpatient No Meds if any: Prescribed or Continued at Discharge Note: Overlap Therapy is Warfarin and Anticoagulant Meds if any: NOT Prescribed or Continued at Discharge
[2016-09-30 22:07] VITALS: BP 116/72
--- NOTE | 2016-10-01 04:15 | PN- Housestaff ---
KEREN WAGNER 10/01/16 0415: Subjective Follow-up For: 1. Asthma versus COPD exacerbation 2. Cryptogenic organizing pneumonia 3. Chronic eosinophilia 4. Anxiety Complaints: pain scale (0-10) Subjective: Patient was seen and examined this morning. She is alert, awake and oriented to time place and person. No acute events noticed overnight. She does complain some cough and wheezing. However she denies any chest pain, racing of heart. She offers no other complaints. She feels she is getting better with prednisone 70 mg daily. She is saturating at 92% on nasal cannula 2 L. Review of Systems Constitutional: Denies: see HPI. Objective Last 24 Hrs of Vital Signs/I&O Vital Signs Date Time Temp Pulse Resp B/P B/P Pulse O2 O2 Flow FiO2 Mean Ox Delivery Rate 09/30 2206 97.6 78 20 116/72 95 Nasal 2.0L Cannula 09/30 1610 93 Nasal 3.0L Cannula 09/30 1600 Nasal 3.0L Cannula 09/30 1450 98.7 83 20 110/60 93 Nasal 4.0L Cannula 09/30 0808 94 Nasal 4.0L Cannula 09/30 0800 95 Nasal 3.0L Cannula 09/30 0630 98.4 85 18 118/60 96 Nasal 4.0L Cannula Intake & Output 10/01 0800 10/01 0000 09/30 1600 Intake Total 700 720 Output Total Balance 700 720 Intake, Oral 700 720 Physical Exam General Appearance: Alert, Oriented X3, Cooperative, No Acute Distress Skin: No Rashes, No Breakdown HEENT: Atraumatic, PERRLA, EOMI Neck: Supple, No JVD Lymphatic: Cervical nl Cardiovascular: Normal S1, Normal S2 Lungs: rhonchi b/l Abdomen: Normal Bowel Sounds, Soft, No Tenderness Vascular: Normal Pulses Current Medications: Current Medications Sig/Nathan Start time Last Medication Dose Route Stop Time Status Admin Albuterol Sulfate 3 ML EVERY 4 HRS/AWAKE 09/29 0815 AC 10/01 INH 0808 Albuterol Sulfate 2 PUF Q4-6 PRN PRN 09/28 1715 AC INH Budesonide/ 2 PUF BID 09/28 2200 AC 08 Formoterol Fumarate INH 2146 Heparin Sodium 5,000 UNIT Q8 09/28 1708 AC 10/01 (Porcine) SC 0545 Ipratropium [place] 2.5 ML Q4 HRS NEEDED PRN 09/28 1715 AC INH Montelukast Sodium 10 MG AT BEDTIME 09/28 2200 AC 09/30 PO 2146 Omeprazole 20 MG DAILY AC 09/29 0700 DC 09/30 PO 0541 Oxycodone HCl 30 MG Q4P PRN 09/28 1715 AC 10/01 PO 0555 Patient Medication 1 ED .STK-MED ONE 09/30 1407 VT Teaching ED 09/30 1408 Prednisone 70 MG DAILY 09/30 1000 AC 09/30 PO 0951 Prednisone 60 MG DAILY 09/29 1000 DC 09/29 PO 1036 Trazodone HCl 150 MG QPM 09/28 2200 AC 09/30 PO 2146 Last 24 Hrs of Lab/Luke Results Last 24 Hrs of Labs/Mics: Laboratory Tests 10/01/16 0756: Anion Gap 7, Estimated GFR > 60, BUN/Creatinine Ratio 25.7 H, CBC w Diff NO MAN DIFF REQ, RBC 4.37, MCV 82.7, MCH 26.5 L, RDW 14.5, MPV 7.9, Gran % 71.2, Lymphocytes % 20.5, Monocytes % 7.6, Eosinophils % 0.5, Basophils % 0.2, Absolute Granulocytes 9.6 H, Absolute Lymphocytes 2.8, Absolute Monocytes 1.0 H, Absolute Eosinophils 0.1, Absolute Basophils 0, PUBS MCHC 32.0 L Assessment/Plan Assessment: This is a 35-year-old female with past medical history significant for TMJ arthritis on chronic pain meds, IBS, fibromyalgia, COPD, reactive airway disease , on 2 L o2 nasal cannula at night, with numerous admissions in the past year for "cryptogenic organizing pneumonia." Patient was recently discharged from [facility] on 08/21/2016 with steroids. However she returns with same chief complaint of shortness of breath. she is admitted to general med floor for further management of shortness of breath and workup for possible cryptogenic organizing pneumonia. CT chest: IMPRESSION: Diffuse ground glass opacities within all lobes of the bilateral lungs, as detailed above. The visualized ossicles considerations include but are not limited to a diffuse infectious or inflammatory process. Pulmonary edema, inhalational injury and pulmonary hemorrhage can also present similarly. Correlate with patient clinical symptoms. PLAN Worsening shortness of breath: mostly Chronic Eosinophilic Pneumonia vs Asthma vs Cryptogenic Organizing Pneumonia Patient carries a diagnosis of cryptogenic organizing pneumonia. However this diagnosis was not based on lung biopsy as patient has previously refused this procedure. She has been discharged with empiric 30 mg prednisone treatment. Her CT chest shows groundglass opacities in all lobes of both lungs. Patient is on nocturnal nasal cannula 2 L at home. She does live with partner who is a current heavy smoker. Note that on admission patient had significant eosinophilia of 17.8%. Previously she has been as high as 20% eosinophilia. This would not be necessarily consistent with a diagnosis of organic organizing pneumonia. * She received Ceftriaxone and azithromycin 1 AND Solu-Medrol 125 mg 1 in ED * Pulmonary consulted with Dr. Verdugo who is her cushion padder * Follow-up Sputum eosinophilia * Follow-up IgE * Nasal cannula for saturations greater than 92%. * Prednisone 70mg daily; per pulmonology recommendations * Discontinue PPI as it can cause peripheral eosinophilia * Monitor patient off antibiotics * Consider stool testing for ruling out causes of eosinophilia. Acute Hypoxemic Respiratory Failure- improved since admission. Patient presented to the ED with worsening shortness of breath, coughing, wheezing, and an O2 saturation of 84%. * Predisone 70 mg daily * Symbicort 2 PUFF PO BID * Albuterol 2 PUFF Q6 as needed * Ipratropium 2.5 mL Q4 as needed * Singulair 10 mg PO at bedtime Positive blood culture: One out of 2 blood cultures are positive for GPC, GPR. Upon speaking with the lab, most likely this represents coag negative staph and diphtheroids. Most likely contaminant. * No antibiotics required right now. COPD/reactive airway disease: * Continue nebs * TRC Lung nodule: Patient has cxr finding of possible 1.1 cm lung nodule * F/U Pulmonary recommendations Anxiety/insomnia: Chronic and stable * Continue trazodone Peripheral eosinophilia Eosinophil count on admission was 17.8. * Resolved * Prednisone 70 mg daily Problem List: 1. Asthma exacerbation 2. Fibromyalgia 3. IBS (irritable bowel syndrome) 4. TMJ (temporomandibular joint syndrome) 5. Cryptogenic organizing pneumonia Pain Ratin Pain Location: n/a Pain Goal: Remain pain free Pain Plan: tylinol Tomorrow's Labs & Rationales: cbc bep Consulting Request: Consulting Specialty: Pulmonary Disease Consulting Physician: Peggy CHAPARRO Reason for Consult: MELINA LAGOS 10/01/16 1134: Attending MD Review Statement Attending Statement Attending MD Statement: examined this patient, discuss w/resident/PA/ZIPPER TRIMMER HAND, agreed w/resident/PA/ZIPPER TRIMMER HAND, discussed with family, reviewed EMR data (avail), discussed with nursing, discussed with case mgmt, reviewed images, amended to note Attending Assessment/Plan: 1. Cryptogenic organizing pneumonia 2. Acute hypoxemic respiratory failure improving 3. Peripheral eosniophilia 4. Asthma vs ?eosinophil pneumonia Plan - Admit to general medicine - Watch off antibiotics for now, oxygen supplementation as needed. - Increased Prednisone to 70mg daily (on 30mg at home) - Pulmonary appreciated, sputum for eosinophils. Possible send for RAST study - Nebulizer treatments - Discontinued PPI/omeprazole. prn antacids. - CT chest with b/l ground glass opacities. - DVT PPx
[2016-10-01 07:25] VITALS: BP 114/70
--- NOTE | 2016-10-01 08:05 | PN- Student ---
Subjective Subjective: Patient was seen this morning. Appears alert, awake, and oriented to time, place , and person. No acute overnight reports. Patient denies any current complaints. Objective Objective: Vital Signs Date Time Temp Pulse Resp B/P B/P Pulse O2 O2 Flow FiO2 Mean Ox Delivery Rate 10/01 1000 95 Nasal 2.0L Cannula 10/01 0810 92 Nasal 2.0L Cannula 10/01 0800 Nasal 2.0L Cannula 10/01 0725 98.1 89 20 114/70 95 Nasal 2.0L Cannula 10/01 0000 95 Nasal 2.0L Cannula 09/30 2207 97.6 78 20 116/72 95 Nasal 2.0L Cannula 09/30 1610 93 Nasal 3.0L Cannula 09/30 1600 Nasal 3.0L Cannula 09/30 1450 98.7 83 20 110/60 93 Nasal 4.0L Cannula Intake & Output 10/01 1600 10/01 0800 10/01 0000 Intake Total 50 700 Output Total Balance 50 700 Intake, IV 0 Intake, Oral 50 700 Number 0 Bowel Movements Physical Exam: General Appearance Alert, Oriented X3, Cooperative Skin No Rashes, No Breakdown HEENT Atraumatic, PERRLA, EOMI, Mucous Membr. moist/pink Neck Supple, No JVD, No thryomegaly, +2 Carotid Pulse wo Bruit, No LAD Lymphatic Axillary nl, Cervical nl Cardiovascular Normal S1, Normal S2, No Murmurs Lungs Clear lung sounds with occasional expiratory wheezes Abdomen Soft, No Tenderness Neurological Normal Gait, Normal Speech, Strength at 5/5 X4 Ext Extremities No Cyanosis Current Medications Sig/Nathan Start time Last Medication Dose Route Stop Time Status Admin Albuterol Sulfate 3 ML EVERY 4 HRS/AWAKE 09/29 0815 AC 09/30 INH 2100 Albuterol Sulfate 2 PUF Q4-6 PRN PRN 09/28 1715 AC INH Budesonide/ 2 PUF BID 09/28 2200 AC 09/30 Formoterol Fumarate INH 2146 Heparin Sodium 5,000 UNIT Q8 09/28 1708 AC 10/01 (Porcine) SC 0545 Ipratropium [place] 2.5 ML Q4 HRS NEEDED PRN 09/28 1715 AC INH Montelukast Sodium 10 MG AT BEDTIME 09/28 2200 AC 09/30 PO 2146 Omeprazole 20 MG DAILY AC 09/29 0700 DC 09/30 PO 0541 Oxycodone HCl 30 MG Q4P PRN 09/28 1715 AC 10/01 PO 0555 Patient Medication 1 ED .STK-MED ONE 09/30 1407 [facility] ED 09/30 1408 Prednisone 70 MG DAILY 09/30 1000 AC 09/30 PO 0951 Prednisone 60 MG DAILY 09/29 1000 DC 09/29 PO 1036 Trazodone HCl 150 MG QPM 09/28 2200 AC 09/30 PO 2146 Assessment/Plan Assessment: Assessment: Patient is a 35-year-old woman with a past medical history significant for anxiety, chronic fibromyalgia, irritable bowel syndrome, asthma, bronchitis, cryptogenic organizing pneumonia, vasovagal pneumonia, and TMJ arthritis who presented to [facility] complaining of worsening shortness of breath, coughing, and wheezing. Symptoms have been present for the past 7-10 days with intermittent production of clear sputum. 1 - Worsening Shortness of Breath 2 - Acute Hypoxemic Respiratory Failure 3 - Eosinophilia 4 - Lung Nodule 5 - Anxiety Chest CT: IMPRESSION: Diffuse ground glass opacities within all lobes of the bilateral lungs, as detailed above. The visualized ossicles considerations include but are not limited to a diffuse infectious or inflammatory process. Pulmonary edema, inhalational injury and pulmonary hemorrhage can also present similarly. Correlate with patient clinical symptoms. Chest X-Ray IMPRESSION: 1. Bilateral lower lungs opacities, can represent pneumonia. 2. A 1.1 cm right upper lobe nodular density. It is a new finding since the comparison CT scan and chest x-ray and could be artifactual and as the result of superimposed shadows. Consider further evaluation by standard PA and lateral chest x-rays, if clinically indicated. 1. Worsening Shortness of Breath. Differentials include Cryptogenic Organizing Pneumonia, Chronic Eosinophilic Pneumonia, and Asthma. Lung biopsy was previously considered for diagnosis. However, patient refused the procedure. She was discharged from [facility] in 08/21/2016 with 30 mg Prednisone PO for Cryptogenic Organizing Pneumonia. On recent admission, peripheral eosinophil count was 17.8% in the setting of reccurrent past episodes of peripheral eosinophilia as high as 20.8% on 06/07/2016 & 06/28/2016. Improved since admission. * Send sputum culture for eosinophils * Check hypersensitivity penumonitis panel (RAST) * Check IgE * Bronchoscopy less likely to provide yield * If no improvement seen, consider open-lung biopsy 2. Acute Hypoxemic Respiratory Failure. Patient presented to the ED with worsening shortness of breath, coughing, wheezing, and an O2 saturation of 84%. Improved since admission. * Predisone 70 mg daily * Symbicort 2 PUFF PO BID * Albuterol 2 PUFF Q6 as needed * Ipratropium 2.5 mL Q4 as needed * Singulair 10 mg PO at bedtime 3. Eosinophilia. Eosinophil count on admission was 17.8%. * Resolved * Prednisone 70 mg daily 4. Lung Nodule. * Follow-up with Pulmonary recommendations 5. Anxiety. * Trazodone 150 mg at bedtime
[2016-10-01 08:08] LABS: ABSOLUTE BASOPHIL COUNT 0 /CUMM (0.0-0.2); ABSOLUTE EOSINOPHIL COUNT 0.1 /CUMM (0.0-0.7); ABSOLUTE GRANULOCYTE CT 9.6 /CUMM (1.4-6.5); ABSOLUTE LYMPH COUNT 2.8 /CUMM (1.2-3.4); BASOPHIL % 0.2 % (0.0-2.0); EOSINOPHIL % 0.5 % (0-5); GRANULOCYTE % 71.2 % (42.2-75.2); HEMATOCRIT 36.2 % (37-47); MEAN CORPUSCULAR HGB 26.5 PG (27.0-31.0); MEAN CORPUSCULAR VOLUME 82.7 FL (81.0-99.0); MEAN PLATELET VOLUME 7.9 FL (7.4-10.4); PLATELET COUNT 341 /CUMM (130-400); RBC DISTRIBUTION WIDTH 14.5 % (11.5-14.5); RED BLOOD CELL CT 4.37 /CUMM (4.20-5.40); WHITE BLOOD CELL COUNT 13.4 /CUMM (4.8-10.8)
--- NOTE | 2016-10-01 11:24 | PN- Pulmonary ---
Subjective HPI/Critical Care Issues: Patient seen and examined this morning. She appears to be somewhat improved and feels better. She is able to ambulate. Objective Current Medications: Current Medications Sig/Nathan Start time Last Medication Dose Route Stop Time Status Admin Albuterol Sulfate 3 ML EVERY 4 HRS/AWAKE 09/29 0815 AC 10/01 INH 0808 Albuterol Sulfate 2 PUF Q4-6 PRN PRN 09/28 171 AC INH Budesonide/ 2 PUF BID 09/28 2199 AC 10/01 Formoterol Fumarate INH 0957 Heparin Sodium 5,000 UNIT Q8 09/28 1708 AC 10/01 (Porcine) SC 0545 Ipratropium [place] 2.5 ML Q4 HRS NEEDED PRN 09/28 171 AC INH Montelukast Sodium 10 MG AT BEDTIME 09/28 2199 AC 09/30 PO 2146 Oxycodone HCl 30 MG Q4P PRN 09/28 171 AC 10/01 PO 0956 Patient Medication 1 ED .STK-MED ONE 09/30 140 [facility] Teaching ED 09/30 140 Prednisone 70 MG DAILY 09/30 1000 AC 10/01 PO 0956 Trazodone HCl 150 MG QPM 09/28 2200 AC 09/30 PO 2146 Vital Signs & I&O Last 24 Hrs of Vitals and I&O: Vital Signs Date Time Temp Pulse Resp B/P B/P Pulse O2 O2 Flow FiO2 Mean Ox Delivery Rate 10/01 1000 95 Nasal 2.0L Cannula 10/01 0810 92 Nasal 2.0L Cannula 10/01 08 Nasal 2.0L Cannula 10/01 0725 98.1 89 20 114/70 95 Nasal 2.0L Cannula 10/01 0000 95 Nasal 2.0L Cannula 09/30 2207 97.6 78 20 116/72 95 Nasal 2.0L Cannula 09/30 1610 93 Nasal 3.0L Cannula 09/30 1600 Nasal 3.0L Cannula 09/30 1450 98.7 83 20 110/60 93 Nasal 4.0L Cannula Intake & Output 10/01 1600 10/01 0800 05 0000 Intake Total 50 700 Output Total Balance 50 700 Intake, IV 0 Intake, Oral 50 700 Number 0 Bowel Movements Exam Other Physical Findings: gen awake and alert heent ncat cvs s1, s2 lungs scattered rhonchi abd soft bs+ ext without edema Results Last 24 Hrs of Lab Results: Laboratory Tests 10/01/16 0756: Anion Gap 7, Estimated GFR > 60, BUN/Creatinine Ratio 25.7 H, CBC w Diff NO MAN DIFF REQ, RBC 4.37, MCV 82.7, MCH 26.5 L, RDW 14.5, MPV 7.9, Gran % 71.2, Lymphocytes % 20.5, Monocytes % 7.6, Eosinophils % 0.5, Basophils % 0.2, Absolute Granulocytes 9.6 H, Absolute Lymphocytes 2.8, Absolute Monocytes 1.0 H, Absolute Eosinophils 0.1, Absolute Basophils 0, PUBS MCHC 32.0 L 10/01/16 0600: Ref Lab Test Result Pending Impression/Plan Impression/Plan Impression/Plan: Impression 35 year old woman * presumed cryptogenic organizing pneumonia * acute hypoxemic respiratory failure * anxiety * Resolved Eosinophilia Plan - check hypersensitivty pneumonitis panel (RAST) - TRC/Nebs - singulair - symbicort continue - cont prednisone 60mg - sputum should be sent for eosinophils - this can be done while the patient is here, inform the lab - check IgE - cont prednisone to 70mg (1mg/kg) - bronchoscopy less likely to provide yield at this point, if no improvement would consider open lung biopsy DVT prophylaxis at all times
[2016-10-01 14:50] VITALS: BP 115/80
[2016-10-01 22:37] VITALS: BP 124/76
[2016-10-02 06:53] VITALS: BP 114/78
--- NOTE | 2016-10-02 07:32 | PN- Housestaff ---
KEREN WAGNER 10/02/16 0731: Subjective Follow-up For: 1. Asthma versus COPD exacerbation 2. Cryptogenic organizing pneumonia 3. Chronic eosinophilia 4. Anxiety Complaints: pain scale (0-10) Subjective: Patient was seen and examined this morning. She is alert awake and oriented to time place and person. No acute events noticed overnight. She denies any cough, difficulty breathing, wheeze, chest pain. She ambulated last night without oxygen and and her saturations were 95%. She is stable to go home today. She continues to use oxygen at nighttime. Review of Systems Constitutional: Reports: see HPI. Objective Last 24 Hrs of Vital Signs/I&O Vital Signs Date Time Temp Pulse Resp B/P B/P Pulse O2 O2 Flow FiO2 Mean Ox Delivery Rate 10/02 0807 94 Nasal 1.0L Cannula 10/02 0653 98.3 76 18 114/78 95 Nasal Cannula 10/02 0000 95 Nasal 2.0L Cannula 10/01 2237 98.6 88 20 124/76 95 Nasal 2.0L Cannula 10/01 1633 96 Nasal 2.0L Cannula 10/01 1600 Nasal 2.0L Cannula 10/01 1450 97.6 67 20 115/80 92 Intake & Output 10/02 1600 10/02 0800 05 0000 Intake Total 240 Output Total Balance 240 Intake, Oral 240 Physical Exam General Appearance: Alert, Oriented X3, Cooperative, No Acute Distress Skin: No Rashes, No Breakdown HEENT: Atraumatic, PERRLA Neck: Supple, No JVD Lymphatic: Cervical nl Cardiovascular: Normal S1, Normal S2 Lungs: Normal Air Movement, rhonchi heard Abdomen: Normal Bowel Sounds, Soft, No Tenderness Neurological: Strength at 5/5 X4 Ext Extremities: No Clubbing, No Cyanosis, No Edema Vascular: Normal Pulses Current Medications: Current Medications Sig/Nathan Start time Last Medication Dose Route Stop Time Status Admin Albuterol Sulfate 3 ML EVERY 4 HRS/AWAKE 09/29 0815 AC 10 INH 0755 Albuterol Sulfate 2 PUF Q4-6 PRN PRN / 1715 AC INH Budesonide/ 2 PUF BID / 2200 AC 0510 Formoterol Fumarate INH 0907 Heparin Sodium 5,000 UNIT Q8 09/28 1708 AC 10/02 (Porcine) SC 0629 Ipratropium [place] 2.5 ML Q4 HRS NEEDED PRN 09/28 1714 AC INH Montelukast Sodium 10 MG AT BEDTIME 09/280 AC 10/01 PO 2148 Oxycodone HCl 30 MG Q4P PRN 09/28 1715 AC 10/02 PO 1049 Prednisone 70 MG DAILY 09/30 1000 AC 10/02 PO 0907 Trazodone HCl 150 MG QPM 09/28 220 AC 10/01 PO 2148 Last 24 Hrs of Lab/Luke Results Last 24 Hrs of Labs/Mics: Laboratory Tests 10/02/16 0620: Anion Gap 8, Estimated GFR > 60, BUN/Creatinine Ratio 18.6, CBC w Diff NO MAN DIFF REQ, RBC 4.54, MCV 83.3, MCH 26.8 L, RDW 14.8 H, MPV 8.2, Gran % 69.4, Lymphocytes % 21.5, Monocytes % 8.1, Eosinophils % 0.6, Basophils % 0.4, Absolute Granulocytes 10.8 H, Absolute Lymphocytes 3.3, Absolute Monocytes 1.3 H, Absolute Eosinophils 0.1, Absolute Basophils 0.1, PUBS MCHC 32.2 L Assessment/Plan Assessment: This is a 35-year-old female with past medical history significant for TMJ arthritis on chronic pain meds, IBS, fibromyalgia, COPD, reactive airway disease , on 2 L o2 nasal cannula at night, with numerous admissions in the past year for "cryptogenic organizing pneumonia." Patient was recently discharged from [facility] on 08/21/2016 with steroids. However she returns with same chief complaint of shortness of breath. she is admitted to general med floor for further management of shortness of breath and workup for possible cryptogenic organizing pneumonia. CT chest: IMPRESSION: Diffuse ground glass opacities within all lobes of the bilateral lungs, as detailed above. The visualized ossicles considerations include but are not limited to a diffuse infectious or inflammatory process. Pulmonary edema, inhalational injury and pulmonary hemorrhage can also present similarly. Correlate with patient clinical symptoms. PLAN Worsening shortness of breath: mostly Chronic Eosinophilic Pneumonia vs Asthma vs Cryptogenic Organizing Pneumonia Patient carries a diagnosis of cryptogenic organizing pneumonia. However this diagnosis was not based on lung biopsy as patient has previously refused this procedure. She has been discharged with empiric 30 mg prednisone treatment. Her CT chest shows groundglass opacities in all lobes of both lungs. Patient is on nocturnal nasal cannula 2 L at home. She does live with partner who is a current heavy smoker. Note that on admission patient had significant eosinophilia of 17.8%. Previously she has been as high as 20% eosinophilia. * She received Ceftriaxone and azithromycin 1 AND Solu-Medrol 125 mg 1 in ED * Pulmonary consulted with Dr. Verdugo who is her tunnel heading inspector * Follow-up Sputum eosinophilia * Follow-up IgE showed 442. * Nasal cannula for saturations greater than 92%. * Prednisone 70mg daily; per pulmonology recommendations * Discontinue PPI as it can cause peripheral eosinophilia * Monitor patient off antibiotics Acute Hypoxemic Respiratory Failure- improved since admission. Patient presented to the ED with worsening shortness of breath, coughing, wheezing, and an O2 saturation of 84%. * Predisone 70 mg daily * Symbicort 2 PUFF PO BID * Albuterol 2 PUFF Q6 as needed * Ipratropium 2.5 mL Q4 as needed * Singulair 10 mg PO at bedtime Positive blood culture: One out of 2 blood cultures are positive for GPC, GPR. Upon speaking with the lab, most likely this represents coag negative staph and diphtheroids. Most likely contaminant. * No antibiotics required right now. COPD/reactive airway disease: * Continue nebs * TRC Lung nodule: Patient has cxr finding of possible 1.1 cm lung nodule * F/U Pulmonary recommendations Anxiety/insomnia: Chronic and stable * Continue trazodone Peripheral eosinophilia Eosinophil count on admission was 17.8. * Resolved * Prednisone 70 mg daily Patient is stable to go home today * She was advised to take 70 mg prednisone daily for now * Advised her to follow-up with Dr. Verdugo in 2 weeks * Planning to get CT chest as an outpatient and further decisions were made accordingly based on CT results as per Dr. Verdugo Problem List: 1. Asthma 2. Cryptogenic organizing pneumonia Pain Ratin Pain Location: none Pain Goal: Remain pain free Pain Plan: tylinol Tomorrow[facility] Labs & Rationales: none Consulting Request: Consulting Specialty: Pulmonary Disease Consulting Physician: Peggy CHAPARRO Reason for Consult: MELINA LAGOS 10/02/16 1147: Attending MD Review Statement Attending Statement Attending MD Statement: examined this patient, discuss w/resident/PA/DIRECTOR OF QUANTITATIVE RESEARCH, agreed w/resident/PA/DIRECTOR OF QUANTITATIVE RESEARCH, discussed with family, reviewed EMR data (avail), discussed with nursing, discussed with case mgmt, reviewed images, amended to note Attending Assessment/Plan: 1. Cryptogenic organizing pneumonia 2. Acute hypoxemic respiratory failure improving 3. Peripheral eosniophilia 4. Asthma vs ?eosinophil pneumonia Plan - Admit to general medicine - Watch off antibiotics for now, oxygen supplementation as needed. - Increased Prednisone to 70mg daily (on 30mg at home) - Pulmonary appreciated, sputum for eosinophils. - Nebulizer treatments - Discontinued PPI/omeprazole. prn antacids. - CT chest with b/l ground glass opacities. - DVT PPx - f/u Pulmonary Dr verdugo as o/p. hypersensitivity penumonitis panel send out. - Patient stable for discharge.
[2016-10-02 07:47] LABS: ABSOLUTE BASOPHIL COUNT 0.1 /CUMM (0.0-0.2); ABSOLUTE EOSINOPHIL COUNT 0.1 /CUMM (0.0-0.7); ABSOLUTE GRANULOCYTE CT 10.8 /CUMM (1.4-6.5); ABSOLUTE LYMPH COUNT 3.3 /CUMM (1.2-3.4); ABSOLUTE MONOCYTE COUNT 1.3 /CUMM (0.10-0.60); BASOPHIL % 0.4 % (0.0-2.0); EOSINOPHIL % 0.6 % (0-5); GRANULOCYTE % 69.4 % (42.2-75.2); HEMATOCRIT 37.8 % (37-47); MEAN CORPUSCULAR HGB 26.8 PG (27.0-31.0); MEAN CORPUSCULAR HGB CONC 32.2 G/DL (33.0-37.0); MEAN CORPUSCULAR VOLUME 83.3 FL (81.0-99.0); MEAN PLATELET VOLUME 8.2 FL (7.4-10.4); PLATELET COUNT 317 /CUMM (130-400); RBC DISTRIBUTION WIDTH 14.8 % (11.5-14.5); RED BLOOD CELL CT 4.54 /CUMM (4.20-5.40); WHITE BLOOD CELL COUNT 15.5 /CUMM (4.8-10.8)
[2016-10-02] MEDS ORDERED: PREDNISONE20 M1 PO (10:52)
--- NOTE | 2016-10-02 10:55 | PN- Pulmonary ---
Subjective HPI/Critical Care Issues: pt seen and examined feeling better somewhat lethargic on 70mg prednisone Objective Current Medications: Current Medications Sig/Nathan Start time Last Medication Dose Route Stop Time Status Admin Albuterol Sulfate 3 ML EVERY 4 HRS/AWAKE 09/29 0815 AC 10/02 INH 0755 Albuterol Sulfate 2 PUF Q4-6 PRN PRN 09/28 171 AC INH Budesonide/ 2 PUF BID 09/28 220 AC 10/02 Formoterol Fumarate INH 0907 Heparin Sodium 5,000 UNIT Q8 09/28 170 AC 10/02 (Porcine) SC 0629 Ipratropium [place] 2.5 ML Q4 HRS NEEDED PRN 09/28 171 AC INH Montelukast Sodium 10 MG AT BEDTIME 09/28 2199 AC 10/01 PO 2148 Oxycodone HCl 30 MG Q4P PRN 09/28 171 AC 10/02 PO 1049 Prednisone 70 MG DAILY 09/30 1000 AC 10/02 PO 0907 Trazodone HCl 150 MG QPM 09/28 2199 AC 10/01 PO 2148 Vital Signs & I&O Last 24 Hrs of Vitals and I&O: Vital Signs Date Time Temp Pulse Resp B/P B/P Pulse O2 O2 Flow FiO2 Mean Ox Delivery Rate 10/02 0807 94 Nasal 1.0L Cannula 10/02 0653 98.3 76 18 114/78 95 Nasal Cannula 10/02 0000 95 Nasal 2.0L Cannula 10/01 2237 98.6 88 20 124/76 95 Nasal 2.0L Cannula 10/01 1633 96 Nasal 2.0L Cannula 10/01 1600 Nasal 2.0L Cannula 10/01 1450 97.6 67 20 115/80 92 Intake & Output 10/02 1600 10/02 0800 10/02 0000 Intake Total 240 Output Total Balance 240 Intake, Oral 240 Exam Other Physical Findings: gen awake and alert heent ncat cvs s1, s2 lungs scattered rhonchi abd soft bs+ ext without edema Results Last 24 Hrs of Lab Results: Laboratory Tests 10/02/16 0620: Anion Gap 8, Estimated GFR > 60, BUN/Creatinine Ratio 18.6, CBC w Diff NO MAN DIFF REQ, RBC 4.54, MCV 83.3, MCH 26.8 L, RDW 14.8 H, MPV 8.2, Gran % 69.4, Lymphocytes % 21.5, Monocytes % 8.1, Eosinophils % 0.6, Basophils % 0.4, Absolute Granulocytes 10.8 H, Absolute Lymphocytes 3.3, Absolute Monocytes 1.3 H, Absolute Eosinophils 0.1, Absolute Basophils 0.1, PUBS MCHC 32.2 L Impression/Plan Impression/Plan Impression/Plan: Impression 35 year old woman * presumed cryptogenic organizing pneumonia * acute hypoxemic respiratory failure * anxiety * Resolved Eosinophilia Plan - f/u hypersensitivty pneumonitis panel (RAST) - TRC/Nebs - singulair - symbicort continue - cont prednisone to 70mg (1mg/kg) without a taper - bronchoscopy less likely to provide yield at this point, if no improvement would consider open lung biopsy - dc planning, if no improvement on imaging, or readmission, will have OLBx DVT prophylaxis at all times
--- NOTE | 2016-10-02 13:30 | Discharge Summary ---
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 However she returns with same chief complaint of shortness of breath. she is admitted to general med floor for further management of shortness of breath and workup for possible cryptogenic organizing pneumonia. Worsening shortness of breath: * Mostly Chronic Eosinophilic Pneumonia vs Asthma vs Cryptogenic Organizing Pneumonia versus hypersensitivity pneumonitis. Patient carries a diagnosis of cryptogenic organizing pneumonia. However this diagnosis was not based on lung biopsy as patient has previously refused this procedure. She has been discharged with empiric 30 mg prednisone treatment previously. Her CT chest shows groundglass opacities in all lobes of both lungs. Patient is on nocturnal nasal cannula 2 L at home. She does live with partner who is a current heavy smoker. Note that on admission patient had significant eosinophilia of 17.8%. Previously she has been as high as 20% eosinophilia. She received Ceftriaxone and azithromycin 1 AND Solu-Medrol 125 mg 1 in ED. Pulmonary consulted with Dr. Gamble who is her client service consultant. Prednisone increased to 70 mg from 30 mg home dose. Monitored off from antibiotics. We discontinued PPI as it causes peripheral eosinophilia. * Follow-up IgE showed 442. * She was advised to take 70 mg prednisone daily for now * Advised her to follow-up with Dr. Gamble in 2 weeks * Planning to get CT chest as an outpatient and further decisions were made accordingly based on CT results as per Dr. Gamble. * please follow-up hypersensitivity panel testing results with Dr. Gamble as outpatient Acute Hypoxemic Respiratory Failure- improved since admission. Patient presented to the ED with worsening shortness of breath, coughing, wheezing, and an O2 saturation of 84%. * Increased Predisone from 30 to 70 mg daily * Symbicort 2 PUFF PO BID given * Albuterol 2 PUFF Q6 as needed given * Ipratropium 2.5 mL Q4 as needed given * Singulair 10 mg PO at bedtime given Positive blood culture: One out of 2 blood cultures are positive for GPC, GPR. Upon speaking with the lab, most likely this represents coag negative staph and diphtheroids. Most likely contaminant. * No antibiotics were given COPD/reactive airway disease: * Continued nebs andTRC Lung nodule: Patient has cxr finding of possible 1.1 cm lung nodule Advised to follow-up with Dr. Gamble closely Anxiety/insomnia: Chronic and stable * Continued trazodone Peripheral eosinophilia Eosinophil count on admission was 17.8. * Resolved * Prednisone 70 mg daily given Complications: None Allergies: Coded Allergies: NO KNOWN ALLERGIES (07/30/16) Significant Procedures: none Pertinent Lab Results: CXR- IMPRESSION: 1. Bilateral lower lungs opacities, can represent pneumonia. 2. A 1.1 cm right upper lobe nodular density. It is a new finding since the comparison CT scan and chest x-ray and could be artifactual and as the result of superimposed shadows. Consider further evaluation by standard PA and lateral chest x-rays, if clinically indicated. CT CHEST IMPRESSION: Diffuse ground glass opacities within all lobes of the bilateral lungs, as detailed above. The visualized ossicles considerations include but are not limited to a diffuse infectious or inflammatory process. Pulmonary edema, inhalational injury and pulmonary hemorrhage can also present similarly. Correlate with patient clinical symptoms. Disposition Summary Disposition Principal Diagnosis: 1. Asthma versus COPD exacerbation 2. Possible Cryptogenic organizing pneumonia 3. Chronic eosinophilia 4. Anxiety Additional Diagnosis: Possible hypersensitivity pneumonitis Discharge Disposition: home or self care Discharge Instructions General Discharge Information Code Status: Full Code Patient's Diet: As tolerated Patient's Activity: As tolerated Follow-Up Instructions/Appts: * She was advised to take 70 mg prednisone daily for now * Advised her to follow-up with Dr. Gamble in 2 weeks * Planning to get CT chest as an outpatient and further decisions were made accordingly based on CT results as per Dr. Gamble Medications at Discharge Discharge Medications: Continue taking these medications: Tiotropium [place] (Spiriva) 18 MCG CAP.W.DEV 1 Capsule Inhale through mouth DAILY Comments: NOT GIVEN Trazodone HCl (Trazodone HCl) 50 MG TABLET 3 Tablet ORAL Every night Qty = 30 Comments: Last Taken: 10/01/16 Time: 10:00 PM Omeprazole Magnesium (Omeprazole Magnesium) 20 MG CAPSULE.DR 1 Capsule ORAL DAILY Qty = 14 Comments: NOT GIVEN Budesonide/Formoterol Fumarate (Symbicort 160-4.5 Mcg Inhaler) 160 MCG-4.5 MCG/ ACTUATION HFA.AER.AD 2 Puff Inhale through mouth TWICE DAILY Comments: Last Taken: 10/02/16 Time: 10:30 AM Albuterol Sulfate (Proair Hfa) 90 MCG HFA.AER.AD 2 Puff Inhale through mouth EVERY 4-6 HOURS NEEDED as needed for RESPIRATORY Comments: Last Taken: 10/02/16 Time: 0800 AM Cetirizine HCl (Zyrtec) 10 MG TABLET 1 Tablet ORAL AT BEDTIME Qty = 30 Instructions: INSTRUCTED Comments: NOT GIVEN Montelukast Sodium (Montelukast Sodium) 10 MG TABLET 1 Tablet ORAL AT BEDTIME Qty = 30 Instructions: INSTRUCTED Comments: Last Taken: 10/01/16 Time: 10:00 PM Oxycodone HCl (Oxycodone HCl) 30 MG TABLET 1 Tablet ORAL EVERY 4 HOURS NEEDED as needed for PAIN Qty = 18 Comments: Last Taken: 10/02/16 Time: 1050 AM Start taking the following new medications: Prednisone (Prednisone) 20 MG TABLET 70 Milligram ORAL DAILY Qty = 30 No Refills Comments: Last Taken: 10/02/16 Time: 1000 AM Copies To: ANGEL GAMBLE MD
== END 2016-10-02 11:36 | DRG 142 ==
LOC: ERH 12:48 → 2NA 13:20 → ERHI 13:20 → ENRESERV 17:08 → 2NA 17:58
PROVIDERS: Physician Assistant; Student in an Organized Health Care Education/Training Program; ADMIT Internal Medicine
DX: J84.116 Cryptogenic organizing pneumonia (principal); J96.01 Acute respiratory failure with hypoxia; D72.1 Eosinophilia; J45.901 Unspecified asthma with (acute) exacerbation; J44.1 Chronic obstructive pulmonary disease with (acute) exacerbation; J44.9 Chronic obstructive pulmonary disease, unspecified; M26.609 Unspecified temporomandibular joint disorder, unspecified side; K58.9 Irritable bowel syndrome, unspecified; M79.7 Fibromyalgia; F41.8 Other specified anxiety disorders; Z77.22 Contact with and (suspected) exposure to environmental tobacco smoke (acute) (chronic); J45.909 Unspecified asthma, uncomplicated; F41.9 Anxiety disorder, unspecified
CPT/HCPCS: 2NASP; 86331; 86606; 86609; 36415; 82436; 87040; 87070; 87147; 87328; 87329; 93005; 93010; 94644; 96365; J1644; J2930; J3490

== ENCOUNTER 2016-11-03 12:29 | Inpatient (IN) | payer OTHER ==
[~2016-11-03] VITALS: Ht 157.5 cm; Wt 74.8 kg
[~2016-11-03 12:29] MED LIST changes: +PREDNISONE20 M1 PO
--- NOTE | 2016-11-03 12:35 | ED DYSPNEA/ASTHMA COMPLAINT ---
History of Present Illness General Chief Complaint: Wheezing/Asthma Stated Complaint: ASTHMA RA Source: patient Exam Limitations: no limitations Vital Signs & Intake/Output Vital Signs & Intake/Output Vital Signs Date Time Temp Pulse Resp B/P B/P Pulse O2 O2 Flow FiO2 Mean Ox Delivery Rate 11/03 1455 98.1 102 20 104/61 96 Nasal 2.0L Cannula 11/03 1431 94 Nasal 2.0L Cannula 11/03 1245 94 Nasal 2.0L Cannula 11/03 1244 97.8 125 28 127/88 90 Room Air Allergies Coded Allergies: NO KNOWN ALLERGIES (07/30/16) Reconcile Medications Albuterol Sulfate (Proair Hfa) 90 MCG HFA.AER.AD 2 PUF INH Q4-6 PRN PRN RESPIRATORY (Reported) Budesonide/Formoterol Fumarate (Symbicort 160-4.5 Mcg Inhaler) 160 MCG-4.5 MCG/ ACTUATION HFA.AER.AD 2 PUF INH BID SOB (Reported) Cetirizine HCl (Zyrtec) 10 MG TABLET 1 TAB PO AT BEDTIME Allergies INSTRUCTED Montelukast Sodium 10 MG TABLET 1 TAB PO QPM ALLERGIES (Reported) Omeprazole Magnesium 20 MG CAPSULE.DR 1 CAP PO DAILY GI (Reported) Oxycodone HCl 30 MG TABLET 1 TAB PO Q4P PRN PAIN Paroxetine HCl 30 MG TABLET 2 TAB PO DAILY MENTAL HEALTH (Reported) Prednisone 20 MG TABLET 1 TAB PO BID ASTHMA (Reported) Tiotropium [place] (Spiriva) 18 MCG CAP.W.DEV 1 CAP INH DAILY ASTHMA ( Reported) Trazodone HCl 50 MG TABLET 3 TAB PO QPM SLEEP (Reported) Triage Nurses Notes Reviewed? yes Onset: Gradual Duration: day(s): (2-3) Timing: no prior history Severity: moderate Activities at Onset: none Prior Episodes/Possible Cause: frequent episodes Modifying Factors: Improves With: other (PREDNISONE). : No Patient currently breastfeeds: No HPI: Patient is a 36-year-old female with history of cryptogenic organizing pneumonia presenting to the emergency department with chief complaint of shortness of breath, wheezing worsening over the past 2-3 days. Patient denies any fevers or chills. Positive increase in wheezing. Dry cough. No sputum production. History of similar symptoms. Patient reports that she usually gets admitted once a month for the symptoms. She's been on high-dose prednisone daily for the past month with some relief. Denies any large semi-swelling. No chest pain or palpitations. (RAFI BEGUM) Past History Travel History Traveled to [place] past 21 day No Medical History Any Pertinent Medical History? 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 FH: diabetes mellitus UNCLE-MATERNAL (BOOP). GRANDMOTHER-MATERNAL (CHF). Relation not specified for: FH: CAD (coronary artery disease) FH: HTN (hypertension) FH: ovarian cancer FH: uterine cancer Hx Contributory? No (RAFI BEGMU) Review of Systems Review of Systems Constitutional: Reports: no symptoms. Comments Review of systems: See HPI, All other systems negative. Constitutional, no chills fever or weight loss HEENT: No visual changes no sore throat no congestion Cardiovascular: No chest pain ,palpitation , orthopnea or ankle swelling Skin, no jaundice no rashes Respiratory: No sputum or hemoptysis GI: No nausea no vomiting : No dysuria No hematuria Muscle skeletal: no back pain, no neck pain, Neurologic: No numbness no confusion, no headaches Psych: No stress anxiety or depression,. Heme/endocrine: No bruising no bleeding no polyuria or polydipsia Immunology: No splenectomy or history of AIDS (RAFI BEGUM) Physical Exam Physical Exam General Appearance: well developed/nourished, no apparent distress, alert, awake , comfortable Respiratory: wheezing Comments: Well-developed well-nourished person in mild to moderate distress HEENT: Normal EENT exam, extraocular motion intact, no nystagmus. Pupils equally round and reactive to light and accommodation. Nose is atraumatic. External auditory canal and Tympanic membranes clear. Pharynx normal. No swelling or edema. Neck: Supple, no lymphadenopathy, normal range of motion without pain or tenderness Back: Nontender, no CVA tenderness. Full range of motion Cardiovascular: Tachycardic rate and rhythms no murmurs rubs or gallops, normal JVP Respiratory: Chest nontender. Moderate respiratory distress, increased work of breathing.diffuse wheezing to auscultation bilaterally Extremity: No edema Neuro: Alert oriented x3 Skin: No appreciable rash on exposed skin, skin is warm and dry. Psych: Mood and affect is normal, memory and judgment is normal. Core Measures ACS in differential dx? No Severe Sepsis Present: No Septic Shock Present: No (MICHELLE COSBY,RAFI) Progress Differential Diagnosis: PNEUMONIA, EXACERBATION OF BRONCHITIS, ASTHMA EXACERBATION, EXACERBATION OF CRYPTOGENIC ORGANIZING PNEUMONIA Plan of Care: Orders Procedure Date/time Status Admit to inpatient 11/03 1457 Active BLOOD CULTURE 11/03 1449 Active COMPREHENSIVE METABOLIC PANEL 11/03 1236 Complete CBC WITHOUT DIFFERENTIAL 11/03 1236 Complete EKG 11/03 1236 Active Current Medications Sig/Nathan Start time Last Medication Dose Stop Time Status Admin Azithromycin 500 MG ONCE ONE 11/03 1500 AC (Zithromax) 11/03 1559 Sodium Chloride 250 ML (Normal Saline 0.9%) Magnesium Sulfate 1 GM ONCE ONE 11/03 1330 AC 11/03 (Mag Sulfate in D5) 11/03 1729 1400 Dextrose/Water 100 ML (D5W) Laboratory Tests 11/03/16 1313: Anion Gap 14, Estimated GFR > 60, BUN/Creatinine Ratio 11.3, Glucose 99, Calcium 9.6, Total Bilirubin 1.1, AST 26, ALT 78 H, Alkaline Phosphatase 90, Total Protein 7.4, Albumin 4.5, Globulin 2.9, Albumin/Globulin Ratio 1.6, CBC w Diff NO MAN DIFF REQ, RBC 5.67 H, MCV 81.0, MCH 26.0 L, RDW 15.0 H, MPV 7.8, Gran % 50.5, Lymphocytes % 30.4, Monocytes % 5.7, Eosinophils % 12.7 H, Basophils % 0.7, Absolute Granulocytes 5.0, Absolute Lymphocytes 3.0, Absolute Monocytes 0.6 , Absolute Eosinophils 1.3, Absolute Basophils 0.1, PUBS MCHC 32.2 L Microbiology 11/03 1448 BLOOD: Blood Culture - ORD 11/03 1448 BLOOD: Blood Culture - ORD Diagnostic Imaging: Viewed by Me: Radiology Read. Discussed w/RAD: Radiology Read. Radiology Impression: PATIENT: TERESA RODRIGEZ PRESENT AGE: 36 PATIENT ACCOUNT NO: [id number] : 81 LOCATION: [facility] ORDERING PHYSICIAN: RAFI COSBY SERVICE DATE: 11/03/16 EXAM TYPE: RAD - XRY-CHEST XRAY, PA AND LATERAL EXAMINATION: XR CHEST CLINICAL INFORMATION: Shortness of breath. Evaluate for pneumonia. COMPARISON: CXR and chest CT from 09/28/2016. TECHNIQUE: Chest, 2 views FINDINGS: Compared to the prior chest radiograph of 09/28/2016, there has been disease improvement and/or resolution within lung bases. There is likely some residual interstitial opacity in the middle lobe. There is increased opacity in the medial left lung apex. No pneumothorax or pleural effusion. There is apparent peribronchial interstitial thickening in both lungs. Cardiac silhouette is normal in size. The mediastinal and hilar contours are normal. Bones are unremarkable. IMPRESSION: - Peribronchial interstitial thickening in both lungs. Active airway inflammation is suspected. - Although patchy opacities in lower lobes have either improved or resolved, there is increased opacity in the medial left lung apex, consistent with pneumonia. DICTATED BY: EDGARD PENA MD DATE/TIME DICTATED:11/03/161344 LANDSCAPE HORTICULTURE INSTRUCTOR:NABOR DATE/TIME TRANSCRIBED:11/03/161344 CONFIDENTIAL, DO NOT COPY WITHOUT APPROPRI Initial ED EKG: SINUS TACHYCARDIA, LOW VOLTAGE THROUGHOUT, 115 BPM Comments: On arrival patient is afebrile in mild distress with diffuse wheezing on exam. Oxygen saturation hovering around 90% on room air. Patient does not use oxygen at home. History of cryptogenic organizing pneumonia, usually gets admitted to the hospital once a month for similar symptoms. DuoNeb initiated along with a dose of IV Solu-Medrol. 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 Supplemental oxygen provided at 2 L nasal cannula. Oxygen saturation then raised up to 95%. 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 Patient informed of all lab results, x-ray shows new organizing pneumonia. Patient will be treated for pneumonia with IV Rocephin and azithromycin. Started on short continuous nebulizer with 3 albuterol treatments, patient also given IV magnesium to help with bronchodilation. Patient longer in respiratory distress. Patient still has diffuse wheezing, slightly improved after initial breathing treatment. Heart rate seems to be trending downward now the increased work of breathing has subsided. D/W DR WITT AND HE AGREES WITH PLAN. Oxygen saturation off supplemental O2 continues to to the low 90s, upper 80s. 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 We will continue antibiotics and IV steroids. Pulmonology consultation. Discharge at this time and medically harmful. (RAFI BEGUM) Departure Departure Time of Disposition: 1354 Disposition: STILL A PATIENT Condition: Stable Clinical Impression Primary Impression: Cryptogenic organizing pneumonia Secondary Impressions: Pneumonia Qualifiers: Pneumonia type: due to unspecified organism Laterality: left Lung location: unspecified part of lung Qualified Code: J18.9 - Pneumonia, unspecified organism Referrals: ELVIN CHAPARRO,THEODORA Mehta (PCP/Family) Departure Forms: Customer Survey General Discharge Information Admission Note Spoke With: CAROLIN CHAPARRO,MELINDA Alberto Documentation of Exam: Documentation of any treatments & extenuating circumstances including Concerns Regarding Discharge (functional status, medication knowledge or non-compliance, living conditions, etc.) that warrant an admission rather than observation: Patient requiring IV steroids, pulmonary consultation, supplemental oxygen, IV antibiotics to help with pneumonia and inflammation, discharge at this time would be medically harmful. BLOOD CULTURES TO RETURN. (RAFI BEGUM) PA/SENIOR STACK ENGINEER Co-Sign Statement Statement: ED Attending supervision documentation- [X] I saw and evaluated the patient. I have also reviewed all the pertinent lab results and diagnostic results. I agree with the findings and the plan of care as documented in the PA's/SENIOR STACK ENGINEER's documentation. [X] I have reviewed the ED Record and agree with the PA's/SENIOR STACK ENGINEER's documentation. [] Additions or exceptions (if any) to the PAs/SENIOR STACK ENGINEER's note and plan are summarized below: [] (MIRYAM CHAPARRO,VANE Camarena) Critical Care Note Critical Care Note Critical Care Time: 30-74 min (RAFI BEGUM)
--- NOTE | 2016-11-03 12:38 | NUR ---
PT C/O ASTHMA. O2 SATS 88 IN TRIAGE ON RA. PT SPEAKING IN SHORT SENTENCES. PT USED ALBUTEROL AND NEB TX AT HOME WITHOUT RELIEF
--- NOTE | 2016-11-03 12:42 | NUR ---
UPON ARRIVAL TO ROOM RESP PAGED. AUD WHEEZES NOTED ALERT BUT WINDED PLACED ON 2L
[2016-11-03 13:35] LABS: ABSOLUTE BASOPHIL COUNT 0.1 /CUMM (0.0-0.2); ABSOLUTE EOSINOPHIL COUNT 1.3 /CUMM (0.0-0.7); ABSOLUTE MONOCYTE COUNT 0.6 /CUMM (0.10-0.60); BASOPHIL % 0.7 % (0.0-2.0); EOSINOPHIL % 12.7 % (0-5); GRANULOCYTE % 50.5 % (42.2-75.2); HEMATOCRIT 45.9 % (37-47); MEAN CORPUSCULAR HGB CONC 32.2 G/DL (33.0-37.0); MEAN PLATELET VOLUME 7.8 FL (7.4-10.4); PLATELET COUNT 320 /CUMM (130-400); RED BLOOD CELL CT 5.67 /CUMM (4.20-5.40); WHITE BLOOD CELL COUNT 9.9 /CUMM (4.8-10.8)
--- NOTE | 2016-11-03 13:53 | RADIOLOGY REPORT ---
EXAMINATION: XR CHEST CLINICAL INFORMATION: Shortness of breath. Evaluate for pneumonia. COMPARISON: CXR and chest CT from 09/28/2016. TECHNIQUE: Chest, 2 views FINDINGS: Compared to the prior chest radiograph of 09/28/2016, there has been disease improvement and/or resolution within lung bases. There is likely some residual interstitial opacity in the middle lobe. There is increased opacity in the medial left lung apex. No pneumothorax or pleural effusion. There is apparent peribronchial interstitial thickening in both lungs. Cardiac silhouette is normal in size. The mediastinal and hilar contours are normal. Bones are unremarkable. IMPRESSION: - Peribronchial interstitial thickening in both lungs. Active airway inflammation is suspected. - Although patchy opacities in lower lobes have either improved or resolved, there is increased opacity in the medial left lung apex, consistent with pneumonia.
[2016-11-03] MEDS ORDERED: PREDNISONE20 M1 PO (13:57)
[2016-11-03] MEDS ORDERED: PAROXETINE HCL30 M1 PO (13:59)
[2016-11-03] MEDS ORDERED: MONTELUKAST SOD10 M1 PO (14:00)
--- NOTE | 2016-11-03 15:10 | History & Physical ---
GENA CUMMINGS 11/03/16 1510: General Information and HPI MD Statement: I have seen and personally examined TERESA RODRIGEZ and documented this H&P. The patient is a 36 year old F who presented with a patient stated chief complaint of worsening shortness of breath and wheezing since yesterday []. Source of Information: patient Exam Limitations: no limitations History of Present Illness: Patient is 36 year old female with past medical history significant for TMJ arthritis her chronic pain medications, IBS, asthma, seasonal allergies, fibromyalgia, history of cryptogenic organizing pneumonia diagnosed a year ago came with chief complaint of worsening shortness of breath and wheezing since yesterday. Of note patient was admitted with same complaint in September and was discharged on 70 mg of prednisone which was tapered down to 40 mg every day and she was currently taking 40 mg prednisone daily. After discharge she was supposed to see Dr. Verdugo but she went on medications and didn't get a chance to see him. Since yesterday she started having worsening shortness of breath and wheezing that make her come to ED. She denied palpitations, chest pain, headache, any urinary or bowel complaints. She denied fever, chills but endorses to have minimally productive cough. Vital signs on admission were temperature 97.8, pulse 125, respiratory rate 28, blood pressure 127/88 and she was saturating 90% on room air later on she required 2 L nasal cannula oxygen to keep oxygen saturation 94%. Admission labs were WBC count 9.9, hemoglobin 14.8, platelet count 320, eosinophil count 12.7 with normal serum chemistries. Chest x-ray showed - Peribronchial interstitial thickening in both lungs. Active airway inflammation is suspected. - Although patchy opacities in lower lobes have either improved or resolved, there is increased opacity in the medial left lung apex, consistent with pneumonia. In the emergency room patient was given multiple nebulizer treatments, magnesium sulfate with significant relief of her symptoms. She was also given a dose of ceftriaxone and azithromycin Allergies/Medications Allergies: Coded Allergies: NO KNOWN ALLERGIES (07/30/16) Home Med list Albuterol Sulfate (Proair Hfa) 90 MCG HFA.AER.AD 2 PUF INH Q4-6 PRN PRN RESPIRATORY (Reported) Budesonide/Formoterol Fumarate (Symbicort 160-4.5 Mcg Inhaler) 160 MCG-4.5 MCG/ ACTUATION HFA.AER.AD 2 PUF INH BID SOB (Reported) Cetirizine HCl (Zyrtec) 10 MG TABLET 1 TAB PO AT BEDTIME Allergies INSTRUCTED Montelukast Sodium 10 MG TABLET 1 TAB PO QPM ALLERGIES (Reported) Omeprazole Magnesium 20 MG CAPSULE.DR 1 CAP PO DAILY GI (Reported) Oxycodone HCl 30 MG TABLET 1 TAB PO Q4P PRN PAIN Paroxetine HCl 30 MG TABLET 2 TAB PO DAILY MENTAL HEALTH (Reported) Prednisone 20 MG TABLET 1 TAB PO BID ASTHMA (Reported) Tiotropium [place] (Spiriva) 18 MCG CAP.W.DEV 1 CAP INH DAILY ASTHMA ( Reported) Trazodone HCl 50 MG TABLET 3 TAB PO QPM SLEEP (Reported) Compliance With Home Meds: FAIR Past History Travel History Traveled to [place] past 21 day No Medical History Neurological: FIBROMYALGIA EENT: TMJ arthritis s/p jaw surgery at [facility] 2010 Cardiovascular: syncope (vasovagal(has had cardio eval)) Respiratory: asthma, bronchitis, pneumonia, cRYPTOGENIC ORGANIZING Gastrointestinal: constipation (IBS), irritable bowel syndrome Hepatic: NONE Renal: NONE Musculoskeletal: fibromyalgia Psychiatric: anxiety Endocrine: NONE Blood Disorders: NONE Cancer(s): NONE DEBT COUNSELOR/Reproductive: NONE History of MRSA: No History of VRE: No History of CDIFF: No Surgical History Surgical History: appendectomy, plantar wart removal jaw surgery for TMJ Past Family/Social History Family History Relations & Conditions if any FATHER (Asthma). FH: diabetes mellitus UNCLE-MATERNAL (BOOP). GRANDMOTHER-MATERNAL (CHF). Relation not specified for: FH: CAD (coronary artery disease) FH: HTN (hypertension) FH: ovarian cancer FH: uterine cancer Psychosocial History Who Do You Live With? SIGNIFICANT OTHER Services at Home: None Primary Language: Latvian ETOH Use: denies use Illicit Drug Use: denies illicit drug use Functional Ability ADLs Independent: dressing, eating, toileting, bathing. Ambulation: independent IADLs Independent: shopping, housework, finances, food prep, telephone, transportation , medication admin. Review of Systems Review of Systems Constitutional: Denies: chills, diaphoresis, fever. Cardiovascular: Denies: chest pain, edema. Respiratory: Reports: cough, short of breath. GI: Denies: bloating, constipation, diarrhea. Genitourinary: Denies: dysuria, frequency. Musculoskeletal: Denies: gout, joint pain. Exam & Diagnostic Data Last 24 Hrs of Vital Signs/I&O Vital Signs Date Time Temp Pulse Resp B/P B/P Pulse O2 O2 Flow FiO2 Mean Ox Delivery Rate 11/03 1455 98.1 102 20 104/61 96 Nasal 2.0L Cannula 11/03 1431 94 Nasal 2.0L Cannula 11/03 1245 94 Nasal 2.0L Cannula 11/03 1244 97.8 125 28 127/88 90 Room Air Intake & Output 11/03 1600 11/03 0800 11/03 0000 Intake Total Output Total Balance Patient 165 lb Weight Physical Exam General Appearance Alert, Oriented X3, Cooperative, No Acute Distress Cardiovascular Regular Rate, Normal S1, Normal S2 Lungs bilateral expiratory wheezes throughout lung vargas Abdomen Soft, No Tenderness Last 24 Hrs of Labs/Luke: Laboratory Tests 11/03/16 1313: Anion Gap 14, Estimated GFR > 60, BUN/Creatinine Ratio 11.3, Glucose 99, Calcium 9.6, Total Bilirubin 1.1, AST 26, ALT 78 H, Alkaline Phosphatase 90, Total Protein 7.4, Albumin 4.5, Globulin 2.9, Albumin/Globulin Ratio 1.6, CBC w Diff NO MAN DIFF REQ, RBC 5.67 H, MCV 81.0, MCH 26.0 L, RDW 15.0 H, MPV 7.8, Gran % 50.5, Lymphocytes % 30.4, Monocytes % 5.7, Eosinophils % 12.7 H, Basophils % 0.7, Absolute Granulocytes 5.0, Absolute Lymphocytes 3.0, Absolute Monocytes 0.6 , Absolute Eosinophils 1.3, Absolute Basophils 0.1, PUBS MCHC 32.2 L Microbiology 11/03 1526 BLOOD: Blood Culture - RECD 11/03 1515 BLOOD: Blood Culture - RECD 11/03 1514 LOWER RESP: Respiratory Culture - ORD 11/03 151 LOWER RESP: Gram Stain - ORD Diagnostic Data CXR Results - Peribronchial interstitial thickening in both lungs. Active airway inflammation is suspected. - Although patchy opacities in lower lobes have either improved or resolved, there is increased opacity in the medial left lung apex, consistent with pneumonia. Assessment/Plan Assessment: Patient is 36 year old female with history of underlying cryptogenic organizing pneumonia came with worsening shortness of breath and wheezing and found to have elevated eosinophil count and chest x-ray showed increased opacity in the medial left lung apex most likely due to underlying disease. We'll admit patient on general medical floor and will take care for the following problems List 1. History of cryptogenic organizing pneumonia 2. Asthma exacerbation 3. Elevated eosinophil count 4. History of fibromyalgia, chronic pain disorder 5. History of anxiety 6. History of insomnia Plan 1. We will admit patient on general medical floor 2. Patient was given 125 mg of Solu-Medrol in ED with significant relief we will start her on 40 mg Solu-Medrol 3 times a day from tomorrow 3. We will request Dr. Verdugo is see patient in a.m. 4. We will watch patient off of antibiotics for now and we'll send sputum culture 5. TRC and nebulization 6. We will continue her home medications including cetirizine, montelukast, paroxetine, trazodone and inhalers 7. Supplemental oxygen to keep oxygen saturation more than 90% Pharmacological DVT prophylaxis Regular diet Patient is full code As Ranked By This Provider Problem List: 1. Cryptogenic organizing pneumonia 2. Asthma Core Measures/Miscellaneous Acute Coronary Syndrome ACS Diagnosis: No Cerebrovascular Accident CVA/TIA Diagnosis: No Congestive Heart Failure CHF Diagnosis: No VTE (View Protocol) VTE Risk Factors: Acute medical illness No [facility] VTE prophylaxis d/t: No contraindications No VTE Pharm Prophylaxis d/t: No contraindications VTE Diagnosis: No VTE Type: NONE VTE Confirmed by (Test): NONE Sepsis (View Protocol) Severe Sepsis Present: No Septic Shock Septic Shock Present: No Miscellaneous Documentation Attending Case Discussed With: CAROLIN CHAPARRO,BERNICE Primary Care Physician: THEODORA OCONNOR MD Patient sees these Specialists [facility] Finish Opener Level of Patient Care: General Medicine Consults Needed: Consulting Specialty: Pulmonary Disease Consulting Physician: Dr. Verdugo Reason for Consult: cryptogenic organizing pneumonia Resident Review Statement Resident Statement: examined this patient, discussed with advisory internship BERNICE COE MD 11/03/16 1814: Attending Review Statement Attending Statement Attending Assessment/Plan: Patient seen and examined. Plan of care discussed with the medical team and the patient. Available lab work and radiology test reports were reviewed. In summary this is a 36 year old female with past medical history significant for TMJ arthritis her chronic pain medications, IBS, asthma, seasonal allergies, fibromyalgia, history of cryptogenic organizing pneumonia diagnosed a year ago came with chief complaint of worsening shortness of breath and wheezing since yesterday. She has had increasing cough and greenish phlegm for past 1-2 days. She denies any fever. She also complains of right upper chest and shoulder pain. She is complaining of severe jaw pain at this point. Vital Signs Date Time Temp Pulse Resp B/P B/P Pulse O2 O2 Flow FiO2 Mean Ox Delivery Rate 11/03 1710 98.6 107 18 116/72 96 Nasal 2.0L Cannula 11/03 1653 Nasal 2.0L Cannula 11/03 1455 98.1 102 20 104/61 96 Nasal 2.0L Cannula 11/03 1431 94 Nasal 2.0L Cannula 11/03 1245 94 Nasal 2.0L Cannula 11/03 1244 97.8 125 28 127/88 90 Room Air Intake & Output 11/03 1600 11/03 0800 11/03 0000 Intake Total Output Total Balance Patient 165 lb Weight Exam: General: Patient awake alert oriented without any distress CVS: S1 plus S2 without any murmur or gallops Chest: Scattered bronchial breathing on the left side and scattered crepitations with minimal axillary wheeze. There is no respiratory distress. Abdomen: Soft nontender, bowel sound present, no guarding or rebound LITURGICAL MUSIC DIRECTOR: Awake alert oriented without any focal neuro deficit and follows command appropriately Extremities: No edema; no clubbing or cyanosis noted Laboratory Tests 11/03 1313 Chemistry Sodium (137 - 145 mmol/L) 141 Potassium (3.5 - 5.1 mmol/L) 4.6 Chloride (98 - 107 mmol/L) 101 Carbon Dioxide (22 - 30 mmol/L) 26 Anion Gap (5 - 16) 14 BUN (7 - 17 mg/dL) 9 Creatinine (0.5 - 1.0 mg/dL) 0.8 Estimated GFR (>60 ml/min) > 60 BUN/Creatinine Ratio (7 - 25 %) 11.3 Glucose (65 - 99 mg/dL) 99 Calcium (8.4 - 10.2 mg/dL) 9.6 Total Bilirubin (0.2 - 1.3 mg/dL) 1.1 AST (14 - 36 U/L) 26 ALT (9 - 52 U/L) 78 H Alkaline Phosphatase (<127 U/L) 90 Total Protein (6.3 - 8.2 g/dL) 7.4 Albumin (3.5 - 5.0 g/dL) 4.5 Globulin (1.9 - 4.2 gm/dL) 2.9 Albumin/Globulin Ratio (1.1 - 2.2 %) 1.6 Hematology CBC w Diff NO MAN DIFF REQ WBC (4.8 - 10.8 /CUMM) 9.9 RBC (4.20 - 5.40 /CUMM) 5.67 H Hgb (12.0 - 16.0 G/DL) 14.8 Hct (37 - 47 %) 45.9 MCV (81.0 - 99.0 FL) 81.0 MCH (27.0 - 31.0 PG) 26.0 L RDW (11.5 - 14.5 %) 15.0 H Plt Count (130 - 400 /CUMM) 320 MPV (7.4 - 10.4 FL) 7.8 Gran % (42.2 - 75.2 %) 50.5 Lymphocytes % (20.5 - 51.1 %) 30.4 Monocytes % (1.7 - 9.3 %) 5.7 Eosinophils % (0 - 5 %) 12.7 H Basophils % (0.0 - 2.0 %) 0.7 Absolute Granulocytes (1.4 - 6.5 /CUMM) 5.0 Absolute Lymphocytes (1.2 - 3.4 /CUMM) 3.0 Absolute Monocytes (0.10 - 0.60 /CUMM) 0.6 Absolute Eosinophils (0.0 - 0.7 /CUMM) 1.3 Absolute Basophils (0.0 - 0.2 /CUMM) 0.1 PUBS MCHC (33.0 - 37.0 G/DL) 32.2 L Microbiology Date/Time Procedure - Status Source Growth 11/03 1526 Blood Culture - RECD BLOOD 11/03 1515 Blood Culture - RECD BLOOD 11/03 1514 Respiratory Culture - ORD LOWER RESP 11/03 1514 Gram Stain - ORD LOWER RESP Chest x-ray - Peribronchial interstitial thickening in both lungs. Active airway inflammation is suspected. - Although patchy opacities in lower lobes have either improved or resolved, there is increased opacity in the medial left lung apex, consistent with pneumonia Assessment * asthma exacerbation * Possible left-sided pneumonia * History of cryptogenic organizing pneumonia * History of TMJ arthritis Plan * Agree with starting Solu Medrol; hold prednisone this point * Given the patient has a new cough and sputum with a new infiltrate I will start Suprax and azithromycin although patient does not have fever or elevated white cell count or left shift. Patient states that these symptoms are typical for developing new pneumonia. * Resume pain medication as per CMR
--- NOTE | 2016-11-03 15:15 | NUR ---
BREATHING MUCH IMPROVED NO ACUTE RESP DISTRESS.
--- NOTE | 2016-11-03 15:24 | NUR ---
PT ADMITTED TO ROOM 219-2
--- NOTE | 2016-11-03 16:04 | NUR ---
[facility] D/C
[2016-11-03 17:10] VITALS: BP 116/72
--- NOTE | 2016-11-03 18:14 | Admission Certification ---
Admission Certification Certification Statement - As attending physician, I certify that at the time of - admission, based on clinical presentation, severity of - symptoms, need for further diagnostic testing and - therapeutic interventions, and risk of adverse outcomes - without in-hospital treatment, in my clinical assessment, - this patient requires an acute hospital stay for a minimum - of two nights or longer. I have also considered psychsocial - factors such as support system, advanced age, financial - issues, cognitive issues, and failed out-patient treatments, - past re-admission history, safety of patient, and lack of - compliance as applicable. Specific rationale supporting this admission is: Asthma exacerbation and pneumonia
[2016-11-03 22:23] VITALS: BP 118/66
[2016-11-04 06:26] VITALS: BP 112/76
--- NOTE | 2016-11-04 06:38 | PN- Housestaff ---
DOUGLAS CHAPARRO,MIKE 11/04/16 0638: Subjective Follow-up For: Asthma exacerbation Subjective: Patient was seen and examined this morning. Alert, awake and oriented to time place and person. She reports feeling much better but feels like she still needs oxygen. No acute events noted overnight. Denies any fever, chills, chest discomfort, palpitations, abdominal pain, nausea, vomiting, headache. No events reported overnight. Review of Systems Constitutional: Reports: see HPI. Objective Last 24 Hrs of Vital Signs/I&O Vital Signs Date Time Temp Pulse Resp B/P B/P Pulse O2 O2 Flow FiO2 Mean Ox Delivery Rate 11/04 0800 96 Nasal 2.0L Cannula 11/04 0626 97.6 83 20 112/76 92 11/04 0000 Nasal 2.0L Cannula 11/03 2223 98.5 100 20 118/66 100 Nasal 4.0L Cannula 11/03 2148 Nasal 2.0L Cannula 11/03 1710 98.6 107 18 116/72 96 Nasal 2.0L Cannula 11/03 1653 Nasal 2.0L Cannula 11/03 1455 98.1 102 20 104/61 96 Nasal 2.0L Cannula 11/03 1431 94 Nasal 2.0L Cannula Intake & Output 11/04 1600 11/04 0800 11/04 0000 Intake Total 480 780 Output Total Balance 480 780 Intake, IV 300 Intake, Oral 480 480 Patient 74.843 kg Weight Weight Reported by Patient Measurement Method Physical Exam General Appearance: Alert, Oriented X3, Cooperative, No Acute Distress Other Physical Findings: Skin: No Rashes, No Breakdown HEENT: Atraumatic, PERRLA Neck: Supple, No JVD Lymphatic: Cervical nl Cardiovascular: Normal S1, Normal S2 Lungs: Normal Air Movement, rhonchi heard Abdomen: Normal Bowel Sounds, Soft, No Tenderness Neurological: Strength at 5/5 X4 Ext Extremities: No Clubbing, No Cyanosis, No Edema Vascular: Normal Pulses Current Medications: Current Medications Sig/Nathan Start time Last Medication Dose Route Stop Time Status Admin Acetaminophen 650 MG Q6P PRN 11/03 1515 AC PO Albuterol Sulfate 3 ML TID 11/04 1000 CAN INH Albuterol Sulfate 3 ML BID 11/04 1000 AC 11/04 INH 0819 Albuterol Sulfate 2 PUF Q4-6 PRN PRN 11/03 1600 AC INH Azithromycin 500 MG DAILY@2100 11/03 2100 AC 11/03 Sodium Chloride 250 ML IV 2207 Azithromycin 500 MG DAILY@11/03 1900 DC Sodium Chloride 250 ML IV Azithromycin 500 MG DAILY 11/03 1811 CAN Sodium Chloride 250 ML IV Azithromycin 500 MG ONCE ONE 11/03 1500 DC Sodium Chloride 250 ML IV 11/03 1559 Budesonide/ 2 PUF BID 11/03 1554 AC 11/04 Formoterol Fumarate INH 0932 Ceftriaxone Sodium 1,000 MG DAILY@11/03 AC 11/03 IV 2206 Ceftriaxone Sodium 1,000 MG DAILY@11/03 1900 DC IV Ceftriaxone Sodium 1,000 MG DAILY 11/03 1811 CAN IV Ceftriaxone Sodium 0 .STK-MED ONE 11/03 1535 DC .ROUTE Ceftriaxone Sodium 1,000 MG ONCE ONE 11/03 1500 DC IV 11/03 1501 Enoxaparin Sodium 40 MG DAILY 11/03 1512 AC 11/04 SC 0928 Ibuprofen 600 MG Q6P PRN 11/03 1515 AC PO Loratadine 10 MG AT BEDTIME 11/03 2200 AC 11/03 PO 2232 Magnesium Sulfate 1 GM ONCE ONE 11/03 1330 DC 11/03 Dextrose/Water 100 ML IV 11/03 1729 1400 Methylprednisolone 40 MG Q8 11/03 2200 AC 11/04 IV 0622 Montelukast Sodium 10 MG QPM 11/03 2200 AC 11/03 PO 2206 Omeprazole 20 MG DAILY AC 11/04 0700 AC 11/04 PO 0622 Ondansetron HCl 4 MG Q6P PRN 11/03 2215 AC 11/03 IV 2232 Oxycodone HCl 30 MG Q4P PRN 11/04 1030 AC 11/04 PO 1112 Oxycodone HCl 30 MG Q6P PRN 11/04 0706 DC PO Oxycodone HCl 30 MG Q6P PRN 11/04 0000 CAN PO Oxycodone HCl 30 MG Q4P PRN 11/03 2145 DC 11/04 PO 0623 Oxycodone HCl 30 MG Q6P PRN 11/03 1815 DC 11/03 PO 1840 Oxycodone HCl 10 MG Q6P PRN 11/03 1515 DC PO Paroxetine HCl 60 MG DAILY 11/04 1000 AC 11/04 PO 0933 Patient Medication 1 ED .STK-MED ONE 11/04 1358 DC Teaching ED 11/04 1359 Tiotropium [place] 1 PUF DAILY 11/03 1557 AC 11/04 INH 0930 Trazodone HCl 150 MG QPM 11/03 2200 AC 11/03 PO 2205 Last 24 Hrs of Lab/Luke Results Last 24 Hrs of Labs/Mics: Laboratory Tests 11/04/16 0803: Anion Gap 10, Estimated GFR > 60, BUN/Creatinine Ratio 16.7, CBC w Diff MAN DIFF ORDERED, RBC 5.15, MCV 80.7 L, MCH 26.3 L, RDW 15.3 H, MPV 8.1, Gran % 85.8 H, Lymphocytes % 11.8 L, Monocytes % 2.3, Eosinophils % 0.1, Basophils % 0 L, Absolute Granulocytes 9.9 H, Absolute Lymphocytes 1.4, Absolute Monocytes 0.3, Absolute Eosinophils 0, Absolute Basophils 0, Platelet Estimate VERIFIED BY SMEAR, Anisocytosis 1+, PUBS MCHC 32.7 L Microbiology 11/03 1526 BLOOD: Blood Culture - RES 11/03 1515 BLOOD: Blood Culture - RES 11/03 1514 LOWER RESP: Respiratory Culture - COLB 11/03 151 LOWER RESP: Gram Stain - COLB Assessment/Plan Assessment: 60 y/o F with PMHx of Blchzdu-Seybm-Ltevt disease, non-Hodgkin's lymphoma of the head and neck s/p surgery and chemo radiation, RA, and chronic pain disorder/ neuropathy who presented with confusion, fever and productive cough for 3 days, concerning for pneumonia with COPD/asthma exacerbation. # Acute hypoxic resp failure Most likely 2/2 PNA with a component of asthma/COPD exacerbation. Patient carries a diagnosis of cryptogenic organizing pneumonia. However this diagnosis was not based on lung biopsy as patient has previously refused this procedure. * Vitals per protocol * TRC neb tx and oxygen support as needed * Antibiotics/steroid as below # Sepsis - resolved Patient presented with fever and tachycardia. Most likely infectious source PNA. She was also hypotensive. Responded well to IV hdyration with normal saline. * Vitals per protocol * IV hydration as above * Send pancultures * Antibiotics to cover for CAP as discussed below # Community acquired pneumonia CXR showed peribronchial interstitial thickening in both lungs with a suspiscion of active airway inflammation. Also increased opacity in the medial left lung apex, consistent with pneumonia in [place]. Even though she was hospitalized within the past 90 days, her clinical picture doesn't look like HCAP. * Cont IV CTX and Zithromax * Cont to appreciate pulm recs # Asthma/COPD exacerbation * IV Solumedrol 40mg Q8 * Continue TRC neb tx as needed * Cont Singulair, Symbicort, Spiriva, and Claritin # Anxiety/insomnia: Chronic and stable * Continue trazodone at home dose - Regular diet - Mild pain pathway - DVTppx with Lovenox and ALPs - Full code. Problem List: 1. Pneumonia 2. Asthma exacerbation 3. IBS (irritable bowel syndrome) 4. Fibromyalgia 5. Full code status 6. Tachycardia 7. Depression Pain Ratin Pain Location: 0 Pain Goal: Remain pain free Pain Plan: Mild path Tomorrow's Labs & Rationales: CBC - PNA BEP - hyperkalemia Consulting Request: Consulting Specialty: Pulmonary Disease Consulting Physician: Dr. Verdugo Reason for Consult: cryptogenic organizing pneumonia [facility] 1337: Attending MD Review Statement Attending Statement Attending MD Statement: examined this patient, discuss w/resident/PA/STORE SALES CONSULTANT, agreed w/resident/PA/STORE SALES CONSULTANT, reviewed EMR data (avail) Attending Assessment/Plan: 36F PMH TMJ arthritis her chronic pain medications, IBS, asthma, seasonal allergies, fibromyalgia, history of cryptogenic organizing pneumonia admitted with shortness of breath, wheezing, productive cough with green sputum, and left jaw pain in the setting of [place] pneumonia with acute asthma exacerbation. Patient feels much better today. She is breathing comfortably though audible wheezing are still heard. She is off oxygen and feels well. She reports occasionally severe left jaw pain that is controlled with her home pain meds. 1. [place] pneumonia 2. Acute asthma exacerbation 3. TMJ dislocation, chronic Plan - Continue on general medicine - TRC/nebulizer treatments - Continue Ceftriaxone and Azithromycin - Follow cultures - Follow pulmonary recommendations - Continue Solumedrol - Continue home medications - DVT PPx
[2016-11-04 08:25] LABS: ABSOLUTE BASOPHIL COUNT 0 /CUMM (0.0-0.2); ABSOLUTE EOSINOPHIL COUNT 0 /CUMM (0.0-0.7); ABSOLUTE GRANULOCYTE CT 9.9 /CUMM (1.4-6.5); ABSOLUTE LYMPH COUNT 1.4 /CUMM (1.2-3.4); ABSOLUTE MONOCYTE COUNT 0.3 /CUMM (0.10-0.60); BASOPHIL % 0 % (0.0-2.0); EOSINOPHIL % 0.1 % (0-5); HEMATOCRIT 41.5 % (37-47); MEAN CORPUSCULAR HGB 26.3 PG (27.0-31.0); MEAN CORPUSCULAR HGB CONC 32.7 G/DL (33.0-37.0); MEAN CORPUSCULAR VOLUME 80.7 FL (81.0-99.0); MEAN PLATELET VOLUME 8.1 FL (7.4-10.4); PLATELET COUNT 335 /CUMM (130-400); RBC DISTRIBUTION WIDTH 15.3 % (11.5-14.5); RED BLOOD CELL CT 5.15 /CUMM (4.20-5.40); WHITE BLOOD CELL COUNT 11.5 /CUMM (4.8-10.8)
[2016-11-04 08:34] LABS: GRANULOCYTE % 85.8 % (42.2-75.2)
--- NOTE | 2016-11-04 11:11 | Cons- Pulmonary ---
General Information and HPI Consulting Request Date of Consult: 11/04/16 Requested By: Dr. Belcher Reason for Consult: Cough and shortness of breath. Source of Information: patient, old records Exam Limitations: no limitations History of Present Illness: The patient is a 36-year-old female with a history of presumed cryptogenic organizing pneumonia, recurrent acute hypoxemic respiratory failure, eosinophilia and anxiety. She also has TMJ arthritis and chronic pain, IBS, asthma, seasonal allergies, and fibromyalgia. The patient was admitted on 11/03 with complaints of worsening shortness of breath and increased wheezing. The patient has intermittently been on high-dose steroids for her respiratory condition. The patient most recently was taking 40 mg of prednisone daily. She presented with worsening shortness of breath, increased wheezing, and cough productive of yellow sputum. The patient initially had a chest x-ray that demonstrated left upper lobe pneumonia. She has been treated with IV ceftriaxone, azithromycin, and Solu-Medrol. She also has been receiving nebulizer treatments regularly. The patient reports feeling markedly improved. She is now less short of breath and has less wheezing. She is moving more air. She is afebrile. Overall she feels better and denies any new complaints today. Allergies/Medications Allergies: Coded Allergies: NO KNOWN ALLERGIES (07/30/16) Home Med List: Albuterol Sulfate (Proair Hfa) 90 MCG HFA.AER.AD 2 PUF INH Q4-6 PRN PRN RESPIRATORY (Reported) Budesonide/Formoterol Fumarate (Symbicort 160-4.5 Mcg Inhaler) 160 MCG-4.5 MCG/ ACTUATION HFA.AER.AD 2 PUF INH BID SOB (Reported) Cetirizine HCl (Zyrtec) 10 MG TABLET 1 TAB PO AT BEDTIME Allergies INSTRUCTED Montelukast Sodium 10 MG TABLET 1 TAB PO QPM ALLERGIES (Reported) Omeprazole Magnesium 20 MG CAPSULE.DR 1 CAP PO DAILY GI (Reported) Oxycodone HCl 30 MG TABLET 1 TAB PO Q4P PRN PAIN Paroxetine HCl 30 MG TABLET 2 TAB PO DAILY MENTAL HEALTH (Reported) Prednisone 20 MG TABLET 1 TAB PO BID ASTHMA (Reported) Tiotropium [place] (Spiriva) 18 MCG CAP.W.DEV 1 CAP INH DAILY ASTHMA ( Reported) Trazodone HCl 50 MG TABLET 3 TAB PO QPM SLEEP (Reported) Current Medications: Current Medications Sig/Nathan Start time Last Medication Dose Route Stop Time Status Admin Acetaminophen 650 MG Q6P PRN 11/03 1515 AC PO Albuterol Sulfate 3 ML TID 11/04 1000 CAN INH Albuterol Sulfate 3 ML BID 11/04 1000 AC 11/04 INH 0819 Albuterol Sulfate 2 PUF Q4-6 PRN PRN 11/03 1600 AC INH Albuterol Sulfate 3 ML ONCE ONE 11/03 1330 DC 11/03 INH 11/03 1331 1431 Albuterol Sulfate 3 ML ONCE ONE 11/03 1330 DC 11/03 INH 11/03 1331 1431 Albuterol Sulfate 3 ML ONCE ONE 11/03 1330 DC 11/03 INH 11/03 1331 1431 Albuterol Sulfate 3 ML ONCE ONE 11/03 1245 DC 11/03 INH 11/03 1246 1245 Azithromycin 500 MG DAILY@11/03 2100 AC 11/03 Sodium Chloride 250 ML IV 2207 Azithromycin 500 MG DAILY@11/03 1900 DC Sodium Chloride 250 ML IV Azithromycin 500 MG DAILY 11/03 1811 CAN Sodium Chloride 250 ML IV Azithromycin 500 MG ONCE ONE 11/03 1500 DC Sodium Chloride 250 ML IV 11/03 1559 Budesonide/ 2 PUF BID 11/03 1554 AC 11/04 Formoterol Fumarate INH 0932 Ceftriaxone Sodium 1,000 MG DAILY@11/03 AC 11/03 IV 2206 Ceftriaxone Sodium 1,000 MG DAILY@0 11/03 1900 DC IV Ceftriaxone Sodium 1,000 MG DAILY 11/03 1811 CAN IV Ceftriaxone Sodium 0 .STK-MED ONE 11/03 1535 DC .ROUTE Ceftriaxone Sodium 1,000 MG ONCE ONE 11/03 1500 DC IV 11/03 1501 Enoxaparin Sodium 40 MG DAILY 11/03 1512 AC 11/04 SC 0928 Ibuprofen 600 MG Q6P PRN 11/03 1515 AC PO Ipratropium [place] 2.5 ML ONCE ONE 11/03 1245 DC 11/03 INH 11/03 1246 1245 Loratadine 10 MG AT BEDTIME 11/030 AC 11/03 PO 2232 Magnesium Sulfate 1 GM ONCE ONE 11/03 1330 DC 11/03 Dextrose/Water 100 ML IV 11/03 1729 1400 Methylprednisolone 40 MG Q8 11/03 2200 AC 11/04 IV 0622 Methylprednisolone 0 .STK-MED ONE 11/03 1352 DC .ROUTE Methylprednisolone 125 MG ONCE ONE 11/03 1245 DC 11/03 IV 11/03 1246 1243 Montelukast Sodium 10 MG QPM 11/03 2200 AC 11/03 PO 2206 Omeprazole 20 MG DAILY AC 11/04 0700 AC 11/04 PO 0622 Ondansetron HCl 4 MG Q6P PRN 11/03 2215 AC 11/03 IV 2232 Oxycodone HCl 30 MG Q4P PRN 11/04 1030 AC PO Oxycodone HCl 30 MG Q6P PRN 11/04 0706 DC PO Oxycodone HCl 30 MG Q6P PRN 11/04 0000 CAN PO Oxycodone HCl 30 MG Q4P PRN 11/03 2145 DC 11/04 PO 0623 Oxycodone HCl 30 MG Q6P PRN 11/03 1815 DC 11/03 PO 1840 Oxycodone HCl 10 MG Q6P PRN 11/03 1515 DC PO Paroxetine HCl 60 MG DAILY 11/04 1000 AC 11/04 PO 0933 Tiotropium [place] 1 PUF DAILY 11/03 1557 AC 11/04 INH 0930 Trazodone HCl 150 MG QPM 11/03 2200 AC 11/03 PO 2205 Review of Systems Review of Systems Constitutional: Denies: see HPI, chills, diaphoresis, fever, malaise, weakness, unexplained weight loss. Cardiovascular: Denies: chest pain, edema, orthopena, palpitations, peripheral edema, syncope. Respiratory: Reports: cough, orthopnea, short of breath, sputum production, wheezing. Denies : hemoptysis, stridor. GI: Denies: no symptoms. Genitourinary: Denies: no symptoms. Musculoskeletal: Denies: no symptoms. Skin: Denies: no symptoms. All Other Systems: Reviewed and Negative Past History Travel History Traveled to [place] past 21 day No Medical History Neurological: FIBROMYALGIA EENT: TMJ arthritis s/p jaw surgery at [facility] 2010 Cardiovascular: syncope (vasovagal(has had cardio eval)) Respiratory: asthma, bronchitis, pneumonia, cRYPTOGENIC ORGANIZING Gastrointestinal: constipation (IBS), irritable bowel syndrome Hepatic: NONE Renal: NONE Musculoskeletal: fibromyalgia Psychiatric: anxiety Endocrine: NONE Blood Disorders: NONE Cancer(s): NONE HEALTHCARE ANALYST/Reproductive: NONE Surgical History Surgical History: appendectomy, plantar wart removal jaw surgery for TMJ Family History Relations & Conditions If Any: FATHER (Asthma). FH: diabetes mellitus UNCLE-MATERNAL (BOOP). GRANDMOTHER-MATERNAL (CHF). Relation not specified for: FH: CAD (coronary artery disease) FH: HTN (hypertension) FH: ovarian cancer FH: uterine cancer Psychosocial History Who Do You Live With? SIGNIFICANT OTHER Services at Home: None Primary Language: Kyrgyz Smoking Status: Never Smoked ETOH Use: denies use Illicit Drug Use: denies illicit drug use Functional Ability ADLs Independent: dressing, eating, toileting, bathing. Ambulation: independent IADLs Independent: shopping, housework, finances, food prep, telephone, transportation , medication admin. Exam & Diagnostic Data Last 24 Hrs of Vital Signs/I&O Vital Signs Date Time Temp Pulse Resp B/P B/P Pulse O2 O2 Flow FiO2 Mean Ox Delivery Rate 11/04 0626 97.6 83 20 112/76 92 11/04 0000 Nasal 2.0L Cannula 11/03 2223 98.5 100 20 118/66 100 Nasal 4.0L Cannula 11/03 2148 Nasal 2.0L Cannula 11/03 1710 98.6 107 18 116/72 96 Nasal 2.0L Cannula 11/03 1653 Nasal 2.0L Cannula 11/03 1455 98.1 102 20 104/61 96 Nasal 2.0L Cannula 11/03 1431 94 Nasal 2.0L Cannula 11/03 1245 94 Nasal 2.0L Cannula 11/03 1244 97.8 125 28 127/88 90 Room Air Intake & Output 11/04 1600 11/04 0800 11/04 0000 Intake Total 480 780 Output Total Balance 480 780 Intake, IV 300 Intake, Oral 480 480 Patient 165 lb Weight Weight Reported by Patient Measurement Method Physical Exam General Appearance: well developed/nourished, no apparent distress, comfortable Head: atraumatic, normal appearance Neck: supple Respiratory: decreased breath sounds, wheezing Cardiovascular: regular rate/rhythm Gastrointestinal: normal bowel sounds, soft, non-tender Skin: intact, normal color, warm/dry Last 48 Hrs of Labs/Luke: Laboratory Tests 11/04/16 0803: Anion Gap 10, Estimated GFR > 60, BUN/Creatinine Ratio 16.7, CBC w Diff MAN DIFF ORDERED, RBC 5.15, MCV 80.7 L, MCH 26.3 L, RDW 15.3 H, MPV 8.1, Gran % 85.8 H, Lymphocytes % 11.8 L, Monocytes % 2.3, Eosinophils % 0.1, Basophils % 0 L, Absolute Granulocytes 9.9 H, Segmented Neutrophils Pending, Absolute Lymphocytes 1.4, Absolute Monocytes 0.3, Absolute Eosinophils 0, Absolute Basophils 0, PUBS MCHC 32.7 L 11/03/16 1313: Anion Gap 14, Estimated GFR > 60, BUN/Creatinine Ratio 11.3, Glucose 99, Calcium 9.6, Total Bilirubin 1.1, AST 26, ALT 78 H, Alkaline Phosphatase 90, Total Protein 7.4, Albumin 4.5, Globulin 2.9, Albumin/Globulin Ratio 1.6, CBC w Diff NO MAN DIFF REQ, RBC 5.67 H, MCV 81.0, MCH 26.0 L, RDW 15.0 H, MPV 7.8, Gran % 50.5, Lymphocytes % 30.4, Monocytes % 5.7, Eosinophils % 12.7 H, Basophils % 0.7, Absolute Granulocytes 5.0, Absolute Lymphocytes 3.0, Absolute Monocytes 0.6 , Absolute Eosinophils 1.3, Absolute Basophils 0.1, PUBS MCHC 32.2 L Diagnostic Data CXR Results - Peribronchial interstitial thickening in both lungs. Active airway inflammation is suspected. - Although patchy opacities in lower lobes have either improved or resolved, there is increased opacity in the medial left lung apex, consistent with pneumonia. Assessment/Plan Impression/Plan: 1. Left upper lobe pneumonia. 2. History of asthma with ongoing bronchospasm, improved with nebulizer treatments and IV Solu-Medrol. 3. 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 pneumonia, on high-dose steroids. 4. Seasonal allergies, on montelukast and Claritin. Recommendations: * Continue ceftriaxone and azithromycin. * Continue IV Solu-Medrol the current dose. * Continue nebs/total respiratory care. * Montelukast and Claritin asked to continue as well. * Symbicort and Spiriva to continue. * Out of bed to chair. * DVT prophylaxis at all times. * We will continue to follow. Thank you for the consult. Consult Acknowledgment - Thank you for your consult request.
[2016-11-04 14:55] VITALS: BP 110/68
[2016-11-04 22:45] VITALS: BP 110/60
[2016-11-05 06:00] VITALS: BP 122/80
--- NOTE | 2016-11-05 06:18 | PN- Housestaff ---
See Addendum Subjective Follow-up For: Asthma exacerbation Subjective: Patient was seen and examined this morning. She feels much better without humidity here in the hospital. Denies any fever, chills, chest discomfort, palpitations, abdominal pain, nausea, vomiting, headache. No events reported overnight. Review of Systems Constitutional: Reports: see HPI. Objective Last 24 Hrs of Vital Signs/I&O Vital Signs Date Time Temp Pulse Resp B/P B/P Pulse O2 O2 Flow FiO2 Mean Ox Delivery Rate 11/04 2245 97.9 100 18 110/60 92 Room Air 11/04 1900 94 Room Air 11/04 1455 98.2 97 20 110/68 91 Room Air 11/04 0800 96 Nasal 2.0L Cannula Intake & Output 11/05 0800 11/05 0000 11/04 1600 Intake Total 720 Output Total Balance 720 Intake, Oral 720 Number 0 Bowel Movements Physical Exam General Appearance: Alert, Oriented X3, Cooperative, No Acute Distress Other Physical Findings: Skin: No Rashes, No Breakdown HEENT: Atraumatic, PERRLA Neck: Supple, No JVD Lymphatic: Cervical nl Cardiovascular: Normal S1, Normal S2 Lungs: Normal Air Movement, rhonchi heard Abdomen: Normal Bowel Sounds, Soft, No Tenderness Neurological: Strength at 5/5 X4 Ext Extremities: No Clubbing, No Cyanosis, No Edema Vascular: Normal Pulses Current Medications: Current Medications Sig/Nathan Start time Last Medication Dose Route Stop Time Status Admin Acetaminophen 650 MG Q6P PRN 11/03 1515 AC PO Albuterol Sulfate 3 ML TID 11/04 1000 CAN INH Albuterol Sulfate 3 ML BID 11/04 1000 AC 11/04 INH 1900 Albuterol Sulfate 2 PUF Q4-6 PRN PRN 11/03 1600 AC INH Alprazolam 0.25 MG ONCE ONE 11/04 2230 DC 11/04 PO 11/04 2231 2302 Azithromycin 500 MG DAILY@11/03 AC 11/04 Sodium Chloride 250 ML IV 2153 Budesonide/ 2 PUF BID 11/03 1554 AC 11/04 Formoterol Fumarate INH 2144 Ceftriaxone Sodium 1,000 MG DAILY@11/03 2100 AC 11/04 IV 2148 Enoxaparin Sodium 40 MG DAILY 11/03 1512 AC 11/04 SC 0928 Ibuprofen 600 MG Q6P PRN 11/03 1515 AC PO Loratadine 10 MG AT BEDTIME 11/03 2199 AC 11/04 PO 2146 Methylprednisolone 40 MG Q8 11/03 2200 AC 11/05 IV 0537 Montelukast Sodium 10 MG QPM 11/03 2200 AC 11/04 PO 2146 Omeprazole 20 MG DAILY AC 11/04 0700 AC 11/05 PO 0536 Ondansetron HCl 4 MG Q6P PRN 11/03 2215 AC 11/03 IV 2232 Oxycodone HCl 30 MG .STK-MED ONE 11/04 1051 DC PO 11/04 1052 Oxycodone HCl 30 MG Q4P PRN 11/04 1030 AC 11/05 PO 0535 Oxycodone HCl 30 MG Q6P PRN 11/04 0706 DC PO Paroxetine HCl 60 MG DAILY 11/04 1000 AC 11/04 PO 0933 Patient Medication 1 ED .STK-MED ONE 11/04 1358 DC Teaching ED 11/04 1359 Tiotropium [place] 1 PUF DAILY 11/03 1557 AC 11/04 INH 0930 Trazodone HCl 150 MG QPM 11/03 2199 AC 11/04 PO 2146 Last 24 Hrs of Lab/Luke Results Last 24 Hrs of Labs/Mics: Laboratory Tests 11/05/16 0636: Sodium Pending, Potassium Pending, Chloride Pending, Carbon Dioxide Pending, Anion Gap Pending, BUN Pending, Creatinine Pending, BUN/Creatinine Ratio Pending , CBC w Diff Pending, WBC Pending, RBC Pending, Hgb Pending, Hct Pending, MCV Pending, MCH Pending, RDW Pending, Plt Count Pending, MPV Pending, PUBS MCHC Pending 11/04/16 0803: Anion Gap 10, Estimated GFR > 60, BUN/Creatinine Ratio 16.7, CBC w Diff MAN DIFF ORDERED, RBC 5.15, MCV 80.7 L, MCH 26.3 L, RDW 15.3 H, MPV 8.1, Gran % 85.8 H, Lymphocytes % 11.8 L, Monocytes % 2.3, Eosinophils % 0.1, Basophils % 0 L, Absolute Granulocytes 9.9 H, Absolute Lymphocytes 1.4, Absolute Monocytes 0.3, Absolute Eosinophils 0, Absolute Basophils 0, Platelet Estimate VERIFIED BY SMEAR, Anisocytosis 1+, PUBS MCHC 32.7 L Assessment/Plan Assessment: 60 y/o F with PMHx of Gbeevjc-Mfhsx-Slqyc disease, non-Hodgkin's lymphoma of the head and neck s/p surgery and chemo radiation, RA, and chronic pain disorder/ neuropathy who presented with confusion, fever and productive cough for 3 days, concerning for pneumonia with COPD/asthma exacerbation. # Acute hypoxic resp failure Most likely 2/2 PNA with a component of asthma/COPD exacerbation. Patient carries a diagnosis of cryptogenic organizing pneumonia. However this diagnosis was not based on lung biopsy as patient has previously refused this procedure. * Vitals per protocol * TRC neb tx and oxygen support as needed * Antibiotics/steroid as below # Sepsis - resolved Patient presented with fever and tachycardia. Most likely infectious source PNA. She was also hypotensive. Responded well to IV hdyration with normal saline. * Vitals per protocol * IV hydration as above * Send pancultures * Antibiotics to cover for CAP as discussed below # Community acquired pneumonia CXR showed peribronchial interstitial thickening in both lungs with a suspiscion of active airway inflammation. Also increased opacity in the medial left lung apex, consistent with pneumonia in [place]. Even though she was hospitalized within the past 90 days, her clinical picture doesn't look like HCAP. * Discontinue IV CTX and Zithromax, switch to moxifloxacin * Cont to appreciate pulm recs # Asthma/COPD exacerbation * Discontinue IV Solumedrol 40mg Q8 * Discharge on prednisone (patient takes 20mg PO BID for asthma) * Continue TRC neb tx as needed * Cont Singulair, Symbicort, Spiriva, and Claritin # Anxiety/insomnia: Chronic and stable * Continue trazodone at home dose - Regular diet - Mild pain pathway - DVTppx with Lovenox and ALPs - Full code. Problem List: 1. Pneumonia 2. Asthma 3. Multifocal pneumonia 4. Hypoxia 5. Depression 6. TMJ (temporomandibular joint syndrome) 7. Cryptogenic organizing pneumonia Pain Ratin Pain Location: Shoulder Pain Goal: Pain 7 or less Pain Plan: Mild Tomorrow's Labs & Rationales: CBC - PNA Consulting Request: Consulting Specialty: Pulmonary Disease Consulting Physician: Dr. Verdugo Reason for Consult: cryptogenic organizing pneumonia
[2016-11-05 07:51] LABS: ABSOLUTE BASOPHIL COUNT 0 /CUMM (0.0-0.2); ABSOLUTE EOSINOPHIL COUNT 0 /CUMM (0.0-0.7); ABSOLUTE LYMPH COUNT 1.3 /CUMM (1.2-3.4); EOSINOPHIL % 0 % (0-5); HEMATOCRIT 38.4 % (37-47); MEAN CORPUSCULAR HGB CONC 32.7 G/DL (33.0-37.0)
[2016-11-05 08:14] LABS: ABSOLUTE GRANULOCYTE CT 16.1 /CUMM (1.4-6.5); ABSOLUTE MONOCYTE COUNT 0.5 /CUMM (0.10-0.60); BASOPHIL % 0.1 % (0.0-2.0); GRANULOCYTE % 90.3 % (42.2-75.2); MEAN CORPUSCULAR HGB 26.5 PG (27.0-31.0); MEAN CORPUSCULAR VOLUME 81.1 FL (81.0-99.0); MEAN PLATELET VOLUME 8.7 FL (7.4-10.4); PLATELET COUNT 338 /CUMM (130-400); RBC DISTRIBUTION WIDTH 15.4 % (11.5-14.5); RED BLOOD CELL CT 4.73 /CUMM (4.20-5.40)
[2016-11-05 08:21] LABS: WHITE BLOOD CELL COUNT 17.8 /CUMM (4.8-10.8)
--- NOTE | 2016-11-05 08:50 | PN- Pulmonary ---
See Addendum Subjective HPI/Critical Care Issues: pt seen and examined 93% on room air afebrile hemodynamically stable feels much better Objective Current Medications: Current Medications Sig/Nathan Start time Last Medication Dose Route Stop Time Status Admin Acetaminophen 650 MG Q6P PRN 11/03 1515 AC PO Albuterol Sulfate 3 ML TID 11/04 1000 CAN INH Albuterol Sulfate 3 ML BID 11/04 1000 AC 11/05 INH 0824 Albuterol Sulfate 2 PUF Q4-6 PRN PRN 11/03 1600 AC INH Alprazolam 0.25 MG ONCE ONE 11/04 2230 DC 11/04 PO 11/04 2231 2302 Azithromycin 500 MG DAILY@11/03 2100 AC 11/04 Sodium Chloride 250 ML IV 2153 Budesonide/ 2 PUF BID 11/03 1554 AC 11/04 Formoterol Fumarate INH 2144 Ceftriaxone Sodium 1,000 MG DAILY@11/03 2100 AC 11/04 IV 2148 Enoxaparin Sodium 40 MG DAILY 11/03 1512 AC 11/04 SC 0928 Ibuprofen 600 MG Q6P PRN 11/03 1515 AC PO Loratadine 10 MG AT BEDTIME 11/03 2200 AC 11/04 PO 2146 Methylprednisolone 40 MG Q8 11/03 2200 AC 11/05 IV 0537 Montelukast Sodium 10 MG QPM 11/03 2200 AC 11/04 PO 2146 Omeprazole 20 MG DAILY AC 11/04 0700 AC 11/05 PO 0536 Ondansetron HCl 4 MG Q6P PRN 11/03 2215 AC 11/03 IV 2232 Oxycodone HCl 30 MG .STK-MED ONE 11/04 1051 DC PO 11/04 1052 Oxycodone HCl 30 MG Q4P PRN 11/04 1030 AC 11/05 PO 0535 Oxycodone HCl 30 MG Q6P PRN 11/04 0706 DC PO Paroxetine HCl 60 MG DAILY 11/04 1000 AC 11/04 PO 0933 Patient Medication 1 ED .STK-MED ONE 11/04 1358 DC Teaching ED 11/04 1359 Tiotropium [place] 1 PUF DAILY 11/03 1557 AC 11/04 INH 0930 Trazodone HCl 150 MG QPM 11/03 2200 AC 11/04 PO 2146 Vital Signs & I&O Last 24 Hrs of Vitals and I&O: Vital Signs Date Time Temp Pulse Resp B/P B/P Pulse O2 O2 Flow FiO2 Mean Ox Delivery Rate 11/05 0828 93 Room Air Room Air 11/04 2245 97.9 100 18 110/60 92 Room Air 11/04 1900 94 Room Air 11/04 1455 98.2 97 20 110/68 91 Room Air Exam Other Physical Findings: gen awake and alert heent ncat cvs s1, s2 lungs rare rhonchi abd soft bs+ ext without edema Results Last 24 Hrs of Lab Results: Laboratory Tests 11/05/16 0636: Anion Gap 13, Estimated GFR > 60, BUN/Creatinine Ratio 20.0, CBC w Diff MAN DIFF ORDERED, WBC Pending, RBC Pending, Hgb Pending, Hct Pending, MCV Pending, MCH Pending, RDW Pending, Plt Count Pending, MPV Pending, Gran % Pending, Lymphocytes % Pending, Monocytes % Pending, Eosinophils % Pending, Basophils % Pending, Absolute Granulocytes Pending, Segmented Neutrophils Pending, Absolute Lymphocytes Pending, Absolute Monocytes Pending, Absolute Eosinophils Pending, Absolute Basophils Pending, PUBS MCHC Pending Impression/Plan Impression/Plan Impression/Plan: Impression 36 year old woman * [place] CAP * 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
[2016-11-05] MEDS ORDERED: AVELOX400 M1 PO (09:16)
--- NOTE | 2016-11-05 09:17 | Patient Discharge Instructions ---
Discharge Instructions General Discharge Information You were seen/treated for: Community acquired pneumonia Asthma/COPD exacerbation Special Instructions: Please follow up with Dr. Verdugo within 2 weeks. Finish taking antibiotics as prescribed. Avoid any possible triggers of your asthma/COPD exacerbation (i.e. humidity). Acute Coronary Syndrome Inclusion Criteria At DC or during hospital stay patient has or had the following: ACS DIAGNOSIS No Discharge Core Measures Meds if any: Prescribed or Continued at Discharge Meds if any: NOT Prescribed or Continued at Discharge Congestive Heart Failure Inclusion Criteria At DC or during hospital stay patient has or had the following: CHF DIAGNOSIS No Discharge Core Measures Meds if any: Prescribed or Continued at Discharge Meds if any: NOT Prescribed or Continued at Discharge Cerebrovascular accident Inclusion Criteria At DC or during hospital stay patient has or had the following: CVA/TIA Diagnosis No Discharge Core Measures Meds if any: Prescribed or Continued at Discharge Meds if any: NOT Prescribed or Continued at Discharge Venous thromboembolism Inclusion Criteria VTE Diagnosis No VTE Type NONE VTE Confirmed by (Test) NONE Discharge Core Measures - Per Current guidelines, there needs to be overlap - treatment for the first 5 days of Warfarin therapy. - If discharged on Warfarin prior to 5 days of - overlap therapy, the patient will need to be - assessed for post discharge needs including - *Post discharge parental anticoagulation - *Warfarin and/or parental anticoagulation education - *Follow up date to check INR post discharge At least 5 days overlap therapy as Inpatient No Meds if any: Prescribed or Continued at Discharge Note: Overlap Therapy is Warfarin and Anticoagulant Meds if any: NOT Prescribed or Continued at Discharge
--- NOTE | 2016-11-05 13:18 | Discharge Summary ---
Visit Information Visit Dates Admission Date: 11/03/16 Discharge Date: 11/05/16 Hospital Course Course Attending Physician: LANDRY BRADSHAW MD Primary Care Physician: THEODORA OCONNOR MD Consulting Request: Consulting Specialty: Pulmonary Disease Consulting Physician: Dr. Verdugo Reason for Consult: cryptogenic organizing pneumonia Hospital Course: 60 y/o F with PMHx of Khtrtbe-Xmalp-Zxizs disease, non-Hodgkin's lymphoma of the head and neck s/p surgery and chemo radiation, RA, and chronic pain disorder/ neuropathy who presented with confusion, fever and productive cough for 3 days, concerning for pneumonia with COPD/asthma exacerbation. # Acute hypoxic resp failure - resolved Most likely 2/2 PNA with a component of asthma/COPD exacerbation. Patient carries a diagnosis of cryptogenic organizing pneumonia. However this diagnosis was not based on lung biopsy as patient has previously refused this procedure. Her respiratry status improved with treatment for pneumonia as below. # Sepsis - resolved Patient presented with fever and tachycardia. Most likely infectious source PNA. She was also hypotensive. Responded well to IV hdyration with normal saline. Blood cultures didn't show any growth. Patient was kept on antibiotics to cover for CAP as discussed below. # Community acquired pneumonia CXR showed peribronchial interstitial thickening in both lungs with a suspiscion of active airway inflammation. Also increased opacity in the medial left lung apex, consistent with pneumonia in [place]. Even though she was hospitalized within the past 90 days, her clinical picture doesn't look like HCAP. Patient received IV CTX and Zithromax, which were transitioned to 4 days of moxifloxacin 400mg PO daily on discharge. # Asthma/COPD exacerbation Patient received IV Solumedrol 40mg Q8 which was switched to home dose of prednisone 20mg PO BID. She was kept on home meds Singulair, Symbicort, Spiriva, and Claritin. # Anxiety/insomnia: Chronic and stable Patient was kept on trazodone at home dose. - Regular diet - Mild pain pathway - DVTppx with Lovenox and ALPs - Full code. Allergies: Coded Allergies: NO KNOWN ALLERGIES (07/30/16) Disposition Summary Disposition Principal Diagnosis: Community acquired pneumonia Additional Diagnosis: Sepsis Acute hypoxic respiratory failure Discharge Disposition: home or self care Discharge Instructions General Discharge Information Code Status: Full Code Patient's Diet: Heart heatlhy Patient's Activity: As tolerated Follow-Up Instructions/Appts: Please follow up with Dr. Verdugo within 2 weeks. Finish taking antibiotics as prescribed. Avoid any possible triggers of your asthma/COPD exacerbation (i.e. humidity). Medications at Discharge Discharge Medications: Continue taking these medications: Tiotropium [place] (Spiriva) 18 MCG CAP.W.DEV 1 Capsule Inhale through mouth DAILY Comments: Last Taken: 11/05/16 Time: 09 Trazodone HCl (Trazodone HCl) 50 MG TABLET 3 Tablet ORAL Every night Qty = 30 Comments: Last Taken: 10/01/16 Time: 10:00 PM Omeprazole Magnesium (Omeprazole Magnesium) 20 MG CAPSULE.DR 1 Capsule ORAL DAILY Qty = 14 Comments: Last Taken:11/05/16 Time: 0536 Budesonide/Formoterol Fumarate (Symbicort 160-4.5 Mcg Inhaler) 160 MCG-4.5 MCG/ ACTUATION HFA.AER.AD 2 Puff Inhale through mouth TWICE DAILY Comments: Last Taken: 11/05/16 Time: 08 Albuterol Sulfate (Proair Hfa) 90 MCG HFA.AER.AD 2 Puff Inhale through mouth EVERY 4-6 HOURS NEEDED as needed for RESPIRATORY Comments: Cetirizine HCl (Zyrtec) 10 MG TABLET 1 Tablet ORAL AT BEDTIME Qty = 30 Instructions: INSTRUCTED Comments: NOT GIVEN Oxycodone HCl (Oxycodone HCl) 30 MG TABLET 1 Tablet ORAL EVERY 4 HOURS NEEDED as needed for PAIN Qty = 18 Comments: Last Taken: 11/05/16 Time: 934 Prednisone (Prednisone) 20 MG TABLET 1 Tablet ORAL TWICE DAILY Paroxetine HCl (Paroxetine HCl) 30 MG TABLET 2 Tablet ORAL DAILY Qty = 60 Comments: Last Taken: 11/05/16 Time: 933 Montelukast Sodium (Montelukast Sodium) 10 MG TABLET 1 Tablet ORAL Every night Comments: Last Taken: 11/04/16 Time: 2145 Start taking the following new medications: Moxifloxacin HCl (Avelox) 400 MG TABLET 1 Tablet ORAL DAILY Qty = 4 No Refills Instructions: Stop after last dose on 11/08. Copies To: EVLIN CHAPARRO,THEODORA Mehta; TYE CHAPARRO,ANGEL
--- NOTE | 2016-11-05 13:39 | Event Note ---
Event Note Event Note: Patient's prescription for repeat CBC was dropped off at the [facility] on [facility] floor. Because I was unable to get hold of Ms. Vásquez who already left the hospital, this information was relayed to her friend Mr. Barneyew Adela. He confirmed that he and Ms. Vásquez will come by and case picker the prescription.
== END 2016-11-05 12:30 | DRG 140 ==
LOC: ERH 12:29 → 2NB 14:57 → ERHI 14:57 → ENRESERV 15:22 → ENTRNSPT 16:12 → 2NB 16:53 → CMPTRNSPT 16:59 → 2NB 11-04 09:00
PROVIDERS: Internal Medicine; Physician Assistant; ADMIT Hospitalist
DX: J44.0 Chronic obstructive pulmonary disease with (acute) lower respiratory infection (principal); J96.01 Acute respiratory failure with hypoxia; J18.9 Pneumonia, unspecified organism; J44.1 Chronic obstructive pulmonary disease with (acute) exacerbation; J45.901 Unspecified asthma with (acute) exacerbation; F41.9 Anxiety disorder, unspecified; M79.7 Fibromyalgia; M26.69 Other specified disorders of temporomandibular joint; K58.9 Irritable bowel syndrome, unspecified
CPT/HCPCS: 2NSBP; 36415; 82436; 87040; 87070; 93005; 93010; 96374; 96375; 99291; J0456; J0696; J1650; J2405; J2920; J2930; J3490; J7040

== ENCOUNTER 2016-11-27 21:30 | Emergency (ER) | payer OTHER ==
[~2016-11-27] VITALS: Ht 157.5 cm; Wt 72.6 kg
[~2016-11-27 21:30] MED LIST changes: +AVELOX400 M1 PO; +PAROXETINE HCL30 M1 PO
--- NOTE | 2016-11-27 22:14 | ED DYSPNEA/ASTHMA COMPLAINT ---
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 [employer] Source: patient Exam Limitations: no limitations Vital Signs & Intake/Output Vital Signs & Intake/Output Vital Signs Date Time Temp Pulse Resp B/P B/P Pulse O2 O2 Flow FiO2 Mean Ox Delivery Rate 11/28 0057 98.3 78 20 110/62 96 Room Air 11/28 0008 97.5 79 20 113/64 97 Nasal 3.0L Cannula 11/27 2305 98 Room Air 11/274 96 Nasal 3.5L Cannula 11/27 2136 97.5 87 26 110/81 94 Room Air ED Intake and Output 11/28 0000 11/27 1200 Intake Total Output Total Balance Patient 160 lb Weight Weight Reported by Patient Measurement Method Allergies Coded Allergies: NO KNOWN ALLERGIES (07/30/16) Reconcile Medications Albuterol Sulfate (Proair Hfa) 90 MCG HFA.AER.AD 2 PUF INH Q4-6 PRN PRN RESPIRATORY (Reported) Budesonide/Formoterol Fumarate (Symbicort 160-4.5 Mcg Inhaler) 160 MCG-4.5 MCG/ ACTUATION HFA.AER.AD 2 PUF INH BID SOB (Reported) Cetirizine HCl (Zyrtec) 10 MG TABLET 1 TAB PO AT BEDTIME Allergies INSTRUCTED Montelukast Sodium 10 MG TABLET 1 TAB PO QPM ALLERGIES (Reported) Omeprazole Magnesium 20 MG CAPSULE.DR 1 CAP PO DAILY GI (Reported) Oxycodone HCl 30 MG TABLET 1 TAB PO Q4P PRN PAIN Paroxetine HCl 30 MG TABLET 2 TAB PO DAILY MENTAL HEALTH (Reported) Prednisone 20 MG TABLET 1 TAB PO BID ASTHMA (Reported) Tiotropium [place] (Spiriva) 18 MCG CAP.W.DEV 1 CAP INH DAILY ASTHMA ( Reported) Trazodone HCl 50 MG TABLET 3 TAB PO QPM SLEEP (Reported) Triage Note: PT TO ED C/O ASTHMA EXACERBATION. O2 SAT 94% ON RA ON ARRIVAL WITH 3 WORD DYSPNEA AND AUDIBLE WHEEZES. PLACED ON 4L NC, O2 SAT TO 95%. FINISHED ABX ON 11/08. IS CURRENTLY ON 40 MG PREDNISONE Triage Nurses Notes Reviewed? yes Onset: Gradual Duration: day(s): (2) Timing: recent history Severity: moderate Activities at Onset: none Prior Episodes/Possible Cause: frequent episodes Modifying Factors: Improves With: immobilization. Worsens With: movement. Associated Symptoms: cough : No Patient currently breastfeeds: No HPI: Patient is a 36-year-old female presenting to the emergency department with chief complaint of increasing wheezing, dry cough this pain going on for the past 2 days. History of cryptogenic organizing pneumonia, he usually is seen in the emergency department once every month for similar symptoms. Is usually on steroids and different inhalers for her symptoms. Tried using her inhaler multiple times prior to arrival without relief. No fevers or chills. Denies any chest pain. Positive shortness of breath. Symptoms worse with coughing and exertion. (RAFI BEGUM) Past History Travel History Traveled to [place] past 21 day No Medical History Any Pertinent Medical History? 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 FH: diabetes mellitus UNCLE-MATERNAL (BOOP). GRANDMOTHER-MATERNAL (CHF). Relation not specified for: FH: CAD (coronary artery disease) FH: HTN (hypertension) FH: ovarian cancer FH: uterine cancer Hx Contributory? No (RAFI BEGUM) Review of Systems Review of Systems Constitutional: Reports: no symptoms. Comments Review of systems: See HPI, All other systems negative. Constitutional, no chills fever or weight loss HEENT: No visual changes no sore throat no congestion Cardiovascular: No chest pain ,palpitation , orthopnea or ankle swelling Skin, no jaundice no rashes Respiratory: No sputum or hemoptysis GI: No nausea no vomiting : No dysuria No hematuria Muscle skeletal: no back pain, no neck pain, Neurologic: No numbness no confusion NO ONEILL Psych: No stress anxiety or depression,. Heme/endocrine: No bruising no bleeding no polyuria or polydipsia Immunology: No splenectomy or history of AIDS (RAFI BEGUM) Physical Exam Physical Exam General Appearance: well developed/nourished, no apparent distress, alert, awake , comfortable Respiratory: INSPIRATORY AND EXPIRATORY WHEEZING Comments: Well-developed well-nourished person in no acute distress HEENT: Pupils equally round and reactive to light and accommodation. Nose is atraumatic. External auditory canal and Tympanic membranes clear. Pharynx normal. No swelling or edema. Neck: Normal inspection, full range of motion Back: Nontender Cardiovascular: Regular rate and rhythms no murmurs rubs or gallops, normal JVP Respiratory: Chest nontender. No respiratory distress. expiratory and inspiratory wheezing auscultation bilaterally. No increased work of breathing. Abdomen: Soft, nontender nondistended, no appreciable organomegaly. Normal bowel sounds. No ascites Extremity: No edema, no calf tenderness to palpation, normal and equal pulses. Neuro: Alert oriented x3 Skin: No appreciable rash on exposed skin, skin is warm and dry. Psych: Mood and affect is normal, memory and judgment is normal. Core Measures ACS in differential dx? No Severe Sepsis Present: No Septic Shock Present: No (RAFI BEGUM) Progress Differential Diagnosis: asthma, bronchitis, costochondritis, CHF, COPD, pulmonary embolism, pneumonia Plan of Care: Orders Procedure Date/time Status TROPONIN LEVEL 11/27 2226 Complete MAGNESIUM 11/27 2226 Complete COMPREHENSIVE METABOLIC PANEL 11/27 2226 Complete CBC WITHOUT DIFFERENTIAL 11/27 2226 Complete Laboratory Tests 11/27/16 2243: Anion Gap 13, Estimated GFR > 60, BUN/Creatinine Ratio 11.4, Glucose 98, Calcium 9.0, Magnesium 2.0, Total Bilirubin 1.4 H, AST 40 H, ALT 33, Alkaline Phosphatase 73, Troponin I < 0.01, Total Protein 7.7, Albumin 4.7, Globulin 3.0, Albumin/Globulin Ratio 1.6, CBC w Diff NO MAN DIFF REQ, RBC 5.42 H, MCV 80.8 L , MCH 26.4 L, RDW 16.3 H, MPV 8.3, Gran % 49.6, Lymphocytes % 29.6, Monocytes % 5.3, Eosinophils % 14.9 H, Basophils % 0.6, Absolute Granulocytes 5.0, Absolute Lymphocytes 3.0, Absolute Monocytes 0.5, Absolute Eosinophils 1.5, Absolute Basophils 0.1, PUBS MCHC 32.7 L Diagnostic Imaging: Viewed by Me: Radiology Read. Discussed w/RAD: Radiology Read. Radiology Impression: PATIENT: TERESA RODRIGEZ PRESENT AGE: 36 PATIENT ACCOUNT NO: [id number] : 81 LOCATION: [facility] ORDERING PHYSICIAN: RAFI COSBY SERVICE DATE: 11/27/16 EXAM TYPE: RAD - XRY-CHEST XRAY, PA AND LATERAL EXAMINATION: XR CHEST CLINICAL INFORMATION: Shortness of breath COMPARISON: 11/03/2016 TECHNIQUE: 2 views of the chest were obtained. FINDINGS: The lungs are well expanded. There is no focal consolidation, edema, or effusion. Mild bronchial wall thickening noted. No pneumothorax. The cardiomediastinal silhouette is within normal limits. No acute osseous abnormality. IMPRESSION: No dense consolidation. Bronchial wall thickening can be seen with a small airways process such as asthma or atypical/ viral infection. DICTATED BY: DARYL CHAPARRO,WILDA DATE/TIME DICTATED:11/27/162319 Initial ED EKG: none Comments: 0024: Patient updated on imaging results and lab work results. When she was informed that there was no pneumonia on x-ray results she reports that they usually can see it on CT. Patient reports that she does not get comfortable going home. She does not have air conditioning at home. Patient just finished her magnesium, we're going to perform an ambulatory oxygen saturation test. She reports that she is getting increased anxiety. 0048: Ambulatory oxygen saturation remains at 96%. Patient moving better air after breathing treatments. Patient will be discharged home, she will continue daily medications. Patient reports that every time she gets anxious her jaw locks up, requires Ativan to help with her symptoms. Patient given 1 mg Ativan IV. Her father's picking her up from the hospital. Patient nontoxic. SINCE incident. She'll return for any worsening symptoms or concerns. (MICHELLE COSBY,RAFI) Departure Departure Time of Disposition: 45 Disposition: HOME OR SELF CARE Condition: Stable Clinical Impression Primary Impression: Asthma Qualifiers: Asthma severity: unspecified severity Asthma complication type: uncomplicated Qualified Code: J45.909 - Unspecified asthma, uncomplicated Referrals: ELVIN CHAPARRO,THEODORA Mehta (PCP/Family) ANGEL GAMBLE MD Additional Instructions: Follow-up with your database designer call to make an appointment. Continue daily medications as previously prescribed. Return for any worsening symptoms or concerns. Departure Forms: Customer Survey General Discharge Information (RAFI BEGUM) PA/CARAMEL CANDY MAKER HELPER Co-Sign Statement Statement: ED Attending supervision documentation- [] I saw and evaluated the patient. I have also reviewed all the pertinent lab results and diagnostic results. I agree with the findings and the plan of care as documented in the PA's/CARAMEL CANDY MAKER HELPER's documentation. [x] I have reviewed the ED Record and agree with the PA's/CARAMEL CANDY MAKER HELPER's documentation. [] Additions or exceptions (if any) to the PAs/CARAMEL CANDY MAKER HELPER's note and plan are summarized below: [] (ELISSA CHAPARRO,INDIRA Rodgers) Critical Care Note Critical Care Note Critical Care Time: non-applicable (RAFI BEGUM)
[2016-11-27 22:58] LABS: ABSOLUTE BASOPHIL COUNT 0.1 /CUMM (0.0-0.2); ABSOLUTE EOSINOPHIL COUNT 1.5 /CUMM (0.0-0.7); ABSOLUTE MONOCYTE COUNT 0.5 /CUMM (0.10-0.60); BASOPHIL % 0.6 % (0.0-2.0); EOSINOPHIL % 14.9 % (0-5); GRANULOCYTE % 49.6 % (42.2-75.2); HEMATOCRIT 43.8 % (37-47); MEAN CORPUSCULAR HGB 26.4 PG (27.0-31.0); MEAN CORPUSCULAR HGB CONC 32.7 G/DL (33.0-37.0); MEAN CORPUSCULAR VOLUME 80.8 FL (81.0-99.0); MEAN PLATELET VOLUME 8.3 FL (7.4-10.4); PLATELET COUNT 289 /CUMM (130-400); RBC DISTRIBUTION WIDTH 16.3 % (11.5-14.5); RED BLOOD CELL CT 5.42 /CUMM (4.20-5.40); WHITE BLOOD CELL COUNT 10.1 /CUMM (4.8-10.8)
--- NOTE | 2016-11-27 23:26 | RADIOLOGY REPORT ---
EXAMINATION: XR CHEST CLINICAL INFORMATION: Shortness of breath COMPARISON: 11/03/2016 TECHNIQUE: 2 views of the chest were obtained. FINDINGS: The lungs are well expanded. There is no focal consolidation, edema, or effusion. Mild bronchial wall thickening noted. No pneumothorax. The cardiomediastinal silhouette is within normal limits. No acute osseous abnormality. IMPRESSION: No dense consolidation. Bronchial wall thickening can be seen with a small airways process such as asthma or atypical/viral infection.
[2016-11-28 00:57] VITALS: BP 110/62
== END 2016-11-28 00:57 ==
LOC: ERH 21:30
PROVIDERS: Physician Assistant
DX: J45.909 Unspecified asthma, uncomplicated (principal)
CPT/HCPCS: 1263; 96365; 96375; J2930

== ENCOUNTER 2016-12-12 20:58 | Inpatient (IN) | payer OTHER ==
[~2016-12-12] VITALS: Ht 165.1 cm; Wt 74.8 kg
--- NOTE | 2016-12-12 21:01 | NUR ---
PT SPO2 84% HR 129
--- NOTE | 2016-12-12 21:11 | NUR ---
36 F WITH SIGNIFICANT ASTHMA HX ARRIVES WITH SEVERE DIFFUSE INSP/EXP WHEEZE AND 02 SAT 82% RA. DUONEB TX'S AT HOME WITHOUT RELIEF, LAST 20 MINS AGO WITHOUT RELIEF. TRIPODING IN TRIAGE, WITH DIFF TAKING DEEP BREATH. RATE 30 AND SHALLOW. RT CALLED FOR CONTINUOUS TX AND EVAL. PT IMMEDIATELY TO ROOM FOR SUPPLIMENTAL O2
--- NOTE | 2016-12-12 21:25 | NUR ---
RESP AT BESIDE
--- NOTE | 2016-12-12 21:25 | NUR ---
IV EST #20 RAC
--- NOTE | 2016-12-12 21:25 | ED DYSPNEA/ASTHMA COMPLAINT ---
History of Present Illness General Chief Complaint: Dyspnea (COPD, CHF, Other) Stated Complaint: DIFF BREATHING Source: patient, old records Exam Limitations: no limitations Vital Signs & Intake/Output Vital Signs & Intake/Output Vital Signs Date Time Temp Pulse Resp B/P B/P Pulse O2 O2 Flow FiO2 Mean Ox Delivery Rate 12/13 0340 90 91 Venti Mask 45% 12/13 0158 96 Venti Mask 45% 12/13 0149 97.8 102 26 108/78 96 Venti Mask 45% 12/12 2349 96 Venti Mask 45% 12/12 2335 96.7 101 16 134/63 98 Non 100% ReBreather 12/12 2206 98 Non 100% ReBreather 12/12 2118 100 Non 100% ReBreather 12/12 2112 99.6 104 24 139/80 99 Non 100% ReBreather 12/12 2106 126 30 82 Room Air Allergies Coded Allergies: NO KNOWN ALLERGIES (07/30/16) Reconcile Medications Albuterol Sulfate (Proair Hfa) 90 MCG HFA.AER.AD 2 PUF INH Q4-6 PRN PRN RESPIRATORY (Reported) Budesonide/Formoterol Fumarate (Symbicort 160-4.5 Mcg Inhaler) 160 MCG-4.5 MCG/ ACTUATION HFA.AER.AD 2 PUF INH BID SOB (Reported) Cetirizine HCl (Zyrtec) 10 MG TABLET 1 TAB PO AT BEDTIME Allergies INSTRUCTED Montelukast Sodium 10 MG TABLET 1 TAB PO QPM ALLERGIES (Reported) Omeprazole Magnesium 20 MG CAPSULE.DR 1 CAP PO DAILY GI (Reported) Oxycodone HCl 30 MG TABLET 1 TAB PO Q4P PRN PAIN Paroxetine HCl 30 MG TABLET 2 TAB PO DAILY MENTAL HEALTH (Reported) Prednisone 20 MG TABLET 1 TAB PO BID ASTHMA (Reported) Tiotropium Brandywine (Spiriva) 18 MCG CAP.W.DEV 1 CAP INH DAILY ASTHMA ( Reported) Trazodone HCl 50 MG TABLET 3 TAB PO QPM SLEEP (Reported) Triage Note: 36 F WITH SIGNIFICANT ASTHMA HX ARRIVES WITH SEVERE DIFFUSE INSP/EXP WHEEZE AND 02 SAT 82% RA. DUONEB TX'S AT HOME WITHOUT RELIEF, LAST 20 MINS AGO WITHOUT RELIEF. TRIPODING IN TRIAGE, WITH DIFF TAKING DEEP BREATH. RATE 30 AND SHALLOW. RT CALLED FOR CONTINUOUS TX AND EVAL. PT IMMEDIATELY TO ROOM FOR SUPPLIMENTAL O2 Triage Nurses Notes Reviewed? yes Onset: 2 days Duration: day(s):, constant, continues in ED Timing: recent history Severity: severe Activities at Onset: none Prior Episodes/Possible Cause: frequent episodes, illness exposure Modifying Factors: Improves With: rest. Worsens With: movement. Associated Symptoms: cough, wheezing, weakness LMP (ages 10-50): unknown : No Patient currently breastfeeds: No HPI: 2 days prior to admission patient complains of progressive shortness of breath with increasing wheezing associated with fatigue and nonproductive cough. She denies fever chills chest pain headache dysuria rash bleeding nausea vomiting diarrhea abdominal pain. Past History Medical History Any Pertinent Medical History? 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 FH: diabetes mellitus UNCLE-MATERNAL (BOOP). GRANDMOTHER-MATERNAL (CHF). Relation not specified for: FH: CAD (coronary artery disease) FH: HTN (hypertension) FH: ovarian cancer FH: uterine cancer Hx Contributory? Yes Review of Systems Review of Systems Constitutional: Reports: see HPI, weakness. EENTM: Reports: no symptoms. Respiratory: Reports: see HPI, cough, short of breath, wheezing. Denies: sputum production. Cardiovascular: Reports: no symptoms. GI: Reports: no symptoms. Genitourinary: Reports: no symptoms. Musculoskeletal: Reports: no symptoms. Skin: Reports: no symptoms. Neurological/Psychological: Reports: no symptoms. Hematologic/Endocrine: Reports: no symptoms. Immunologic/Allergic: Reports: no symptoms. All Other Systems: Reviewed and Negative Physical Exam Physical Exam General Appearance: well developed/nourished, alert, awake, anxious, severe distress, obese Head: atraumatic, normal appearance Eyes: Bilateral: normal appearance, PERRL, EOMI. Ears, Nose, Throat: normal pharynx, normal ENT inspection Neck: normal inspection, supple, full range of motion, no midline tenderness Respiratory: chest non-tender, accessory muscle use, wheezing, respiratory distress Cardiovascular: regular rate/rhythm, normal peripheral pulses, norml femoral pulses equa Peripheral Pulses: 4+ carotid (R), 4+ carotid (L) Gastrointestinal: normal bowel sounds, soft, non-tender, no organomegaly Extremities: normal inspection, normal capillary refill, normal range of motion, no edema Neurologic/Psych: no motor/sensory deficits, awake, alert, oriented x 3, normal mood/affect, laboratory monitor II-XII nml as tested Skin: intact, normal color, warm/dry Lymphatic: no anterior cervical carol Core Measures ACS in differential dx? No Severe Sepsis Present: No Septic Shock Present: No Progress Differential Diagnosis: asthma, bronchitis, COPD, pneumonia Plan of Care: Orders Procedure Date/time Status Regular Diet 12/13 B Active ARTERIAL BLOOD GAS (GEN) 12/13 0600 Active CBC WITHOUT DIFFERENTIAL 12/13 0600 Active BASIC ELECTROLYTES PLUS BUN&CR 12/13 0600 Active LACTIC ACID 12/13 0530 Active Pathway - chart 12/13 0224 Active House Staff 12/13 0224 Active Code Status 12/13 0224 Active STREP PNEUMO URINARY ANTIGEN 12/13 0149 Active LEGIONELLA URINARY ANTIGEN 12/13 0149 Active LOWER RESPIRATORY CULTURE 12/13 0149 Active Vital Signs 12/13 0148 Active Teach/Educate 12/138 Active Pain Treatment and Response 12/13 0148 Active Nutritional Intake, Monitor 12/13 0148 Active Isolation 12/13 0148 Active Intake & Output 12/13 0148 Active Patient Care Conference 12/13 0148 Active Activity/Ambulation 12/13 0148 Active LACTIC ACID 12/13 0142 Complete OXYGEN SETUP (GEN) 12/13 0020 Complete Saline Lock 12/13 0020 Active Admit to inpatient 12/13 0020 Active Vital Signs 12/13 0020 Active Activity/Ambulation 12/13 0020 Active Code Status 12/13 0020 Complete Admit to inpatient 12/13 0014 Active Patient Data 12/13 0014 Active Patient Data 12/13 0013 Active ARTERIAL BLOOD GAS (GEN) 12/13 0007 Complete TRC EVALUATION (GEN) 12/13 UNK Active VTE Mechanical Prophylaxis 12/13 UNK Active FingerStick- Glucose 12/13 UNK Active Intake & Output 12/12 2346 Active BLOOD CULTURE 12/13 2115 Active MAGNESIUM 12/13 2115 Complete HUMAN BETA HCG SCREEN 12/13 2115 Complete COMPREHENSIVE METABOLIC PANEL 12/13 2115 Complete CBC WITHOUT DIFFERENTIAL 12/13 2115 Complete Current Medications Sig/Nathan Start time Last Medication Dose Stop Time Status Admin Loratadine 10 MG 2200 12/13 220 AC (Claritin) Montelukast Sodium 10 MG QPM 12/13 2200 AC (Singulair) Trazodone HCl 150 MG QPM 12/13 2200 AC (Desyrel) Vancomycin HCl 1,000 MG DAILY 12/13 220 AC Sodium Chloride 250 ML (Normal Saline 0.9%) Budesonide/ 2 PUF BID 12/13 1000 AC Formoterol Fumarate (Symbicort) Enoxaparin Sodium 40 MG DAILY 12/13 1000 AC (Lovenox) Paroxetine HCl 60 MG DAILY 12/13 1000 AC (Paxil) Tiotropium Brandywine 1 PUF DAILY 12/13 1000 AC (Spiriva) Ceftazidime 2,000 MG IQ8 12/13 0800 AC (Fortaz) Omeprazole 20 MG DAILY AC 12/13 0700 AC (Prilosec) Methylprednisolone 40 MG Q6 12/13 0600 AC (Solumedrol) Sodium Chloride 1,000 ML Q8H 12/13 0345 UNVr 12/13 (Normal Saline 0.9%) 12/13 1144 0358 Acetaminophen 650 MG Q6P PRN 12/13 0230 AC (Tylenol) Oxycodone HCl 30 MG Q4P PRN 12/13 0145 AC 12/13 (Roxicodone) 0210 Laboratory Tests 12/13/16 0220: Lactic Acid 3.3 H 12/13/16 0030: pH 7.36, pCO2 46 H, pO2 88, HCO3 25, ABG O2 Sat (Measured) 96.0, Carboxyhemoglobin 0.3 L, O2 Concentration % .45, O2 Delivery Method V/M, Phlebotomy Draw Site RIGHT BRACHIAL 12/12/162133: Anion Gap 11, Estimated GFR > 60, BUN/Creatinine Ratio 8.8, Glucose 91, Calcium 9.6, Magnesium 1.9, Total Bilirubin 0.9, AST 21, ALT 24, Alkaline Phosphatase 89 , Total Protein 7.7, Albumin 4.7, Globulin 3.0, Albumin/Globulin Ratio 1.6, Total Beta HCG NEGATIVE, CBC w Diff NO MAN DIFF REQ, RBC 5.27, MCV 82.4, MCH 26.4 L, RDW 15.8 H, MPV 8.6, Gran % 61.9, Lymphocytes % 23.7, Monocytes % 4.6, Eosinophils % 9.3 H, Basophils % 0.5, Absolute Granulocytes 8.1 H, Absolute Lymphocytes 3.1, Absolute Monocytes 0.6, Absolute Eosinophils 1.2, Absolute Basophils 0.1, PUBS MCHC 32.0 L Microbiology 12/13 148 URINE ROUT: Legionella Antigen - ORD 12/13 148 URINE ROUT: Streptococcus pneumoniae Antigen (M - ORD 12/13 148 LOWER RESP: Respiratory Culture - COLB 12/13 148 LOWER RESP: Gram Stain - COLB 12/12 2153 BLOOD: Blood Culture - RECD 12/13 2143 BLOOD: Blood Culture - RECD Diagnostic Imaging: Viewed by Me: Radiology Read. Discussed w/RAD: Radiology Read. CXR Impression: Small focus of hazy opacification within the right lung base which could correspond to atelectasis or developing infiltrate. Initial ED EKG: none Departure Departure Disposition: STILL A PATIENT Condition: Stable Clinical Impression Primary Impression: Pneumonia Qualifiers: Pneumonia type: due to unspecified organism Laterality: right Lung location: unspecified part of lung Qualified Code: J18.9 - Pneumonia, unspecified organism Secondary Impressions: Status asthmaticus Qualifiers: Asthma severity: severe persistent Qualified Code: J45.52 - Severe persistent asthma with status asthmaticus Referrals: THEODORA OCONNOR MD (PCP/Family) Departure Forms: Customer Survey General Discharge Information Admission Note Spoke With: MICK MORRISON MD Documentation of Exam: Documentation of any treatments & extenuating circumstances including Concerns Regarding Discharge (functional status, medication knowledge or non-compliance, living conditions, etc.) that warrant an admission rather than observation: Supplemental oxygen serial beta agonist nebs medication adjustment IV steroids IV antibiotics pulmonary evaluation continuing care discharge planning Critical Care Note Critical Care Note Critical Care Time: 30-74 min (40)
--- NOTE | 2016-12-12 21:32 | NUR ---
PT MEDICATED PER EMAR
[2016-12-12 21:44] LABS: ABSOLUTE BASOPHIL COUNT 0.1 /CUMM (0.0-0.2); ABSOLUTE EOSINOPHIL COUNT 1.2 /CUMM (0.0-0.7); ABSOLUTE GRANULOCYTE CT 8.1 /CUMM (1.4-6.5); ABSOLUTE LYMPH COUNT 3.1 /CUMM (1.2-3.4); ABSOLUTE MONOCYTE COUNT 0.6 /CUMM (0.10-0.60); BASOPHIL % 0.5 % (0.0-2.0); EOSINOPHIL % 9.3 % (0-5); GRANULOCYTE % 61.9 % (42.2-75.2); HEMATOCRIT 43.4 % (37-47); MEAN CORPUSCULAR HGB 26.4 PG (27.0-31.0); MEAN CORPUSCULAR VOLUME 82.4 FL (81.0-99.0); MEAN PLATELET VOLUME 8.6 FL (7.4-10.4); PLATELET COUNT 357 /CUMM (130-400); RBC DISTRIBUTION WIDTH 15.8 % (11.5-14.5); RED BLOOD CELL CT 5.27 /CUMM (4.20-5.40); WHITE BLOOD CELL COUNT 13.1 /CUMM (4.8-10.8)
--- NOTE | 2016-12-12 22:03 | NUR ---
PT MEDICATED PER EMAR WITH MAG RUNNING OVER [address] LOYD
--- NOTE | 2016-12-12 22:03 | NUR ---
RESP AT BEDSIDE
--- NOTE | 2016-12-12 22:26 | RADIOLOGY REPORT ---
EXAMINATION: CHEST 1 VIEW CLINICAL INFORMATION: Shortness of breath, wheezing. COMPARISON: 11/27/2016. TECHNIQUE: An AP view of the chest is provided. FINDINGS: The cardiac silhouette is not enlarged. The mediastinal and hilar contours are unremarkable. There are neither pleural effusions nor pneumothoraces. There is a small focus of hazy opacification within the right lung base. The osseous structures are unremarkable. IMPRESSION: Small focus of hazy opacification within the right lung base which could correspond to atelectasis or developing infiltrate. Recommendation is for a followup chest series to be obtained following treatment and/or resolution of symptoms to assure resolution of this appearance.
--- NOTE | 2016-12-12 22:55 | NUR ---
THIS RN ASSUMED CARE OF PT PER CLAUDIA HIGGINBOTHAM.
--- NOTE | 2016-12-12 23:25 | NUR ---
DR LOYD IN FOR POC
--- NOTE | 2016-12-12 23:38 | NUR ---
RT CAME INTO PTS RM AND CHANGED PT TO VENTI MASK AT 45%.
--- NOTE | 2016-12-13 01:14 | NUR ---
PT TO AND FROM CT SCAN VIA STRETCHER.
--- NOTE | 2016-12-13 01:18 | NUR ---
PT AMBULATED TO THE BATHROOM WITH A STEADY GAIT
--- NOTE | 2016-12-13 01:23 | NUR ---
THIS RN GAVE REPORT TO CLAUDIA MTZ.
--- NOTE | 2016-12-13 01:41 | CT SCAN REPORT ---
EXAMINATION: CT CHEST WITHOUT CONTRAST CLINICAL INFORMATION: Acute dyspnea. COMPARISON: 09/28/2016 and 08/12/2016 TECHNIQUE: Multidetector volumetric CT imaging of the chest was done. Axial MIP volume rendering provided. Sagittal and coronal reformatted images were obtained. DLP: 275 mGy-cm FINDINGS: LUNGS: Again seen are patchy foci of groundglass attenuation throughout both lungs with adjacent interstitial thickening, consistent with a crazy paving pattern. The involvement of the lung bases appears improved as compared to the prior study, though as does the calcification in the right middle lobe and left upper lobe appears more pronounced. Opacities in the right upper lobe are different than prior, though in a similar distribution and not significantly changed in extent. Central airways are clear. No superimposed nodules or significant interstitial thickening. MEDIASTINUM: Mediastinal is normal. Heart is normal in size. No pericardial effusion. Thyroid gland is normal. There are a few subcentimeter mediastinal lymph nodes. The 0.8 cm precarinal lymph node (short axis) is within normal limits with a normal fatty hilum, unchanged. PLEURA: There is no pleural effusion. No pleural mass or thickening. AXILLA: No lymphadenopathy. UPPER ABDOMEN: Unremarkable. OSSEOUS STRUCTURES: Unremarkable. IMPRESSION: Patchy multifocal groundglass opacities throughout both lungs in a similar distribution to the prior study with new opacities in some areas and resolution of previously seen opacities in others. Overall burden of opacities is not significantly changed from 09/28/2016. As previously noted, the pattern is suggestive of cryptogenic organizing pneumonia, though other inflammatory and infectious etiologies are possible.
[2016-12-13 01:49] VITALS: BP 108/78
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
--- NOTE | 2016-12-13 02:34 | Admission Certification ---
Admission Certification Certification Statement - As attending physician, I certify that at the time of - admission, based on clinical presentation, severity of - symptoms, need for further diagnostic testing and - therapeutic interventions, and risk of adverse outcomes - without in-hospital treatment, in my clinical assessment, - this patient requires an acute hospital stay for a minimum - of two nights or longer. I have also considered psychsocial - factors such as support system, advanced age, financial - issues, cognitive issues, and failed out-patient treatments, - past re-admission history, safety of patient, and lack of - compliance as applicable. Specific rationale supporting this admission is: Acute on chronic hypoxic respiratory failure secondary to asthma exacerbation and presumed cryptogenic organizing pneumonia with secondary pneumonia
[2016-12-13 07:27] VITALS: BP 114/62
[2016-12-13 08:38] LABS: ABSOLUTE BASOPHIL COUNT 0 /CUMM (0.0-0.2); ABSOLUTE EOSINOPHIL COUNT 0 /CUMM (0.0-0.7); ABSOLUTE GRANULOCYTE CT 8.9 /CUMM (1.4-6.5); ABSOLUTE LYMPH COUNT 0.6 /CUMM (1.2-3.4); ABSOLUTE MONOCYTE COUNT 0 /CUMM (0.10-0.60); BASOPHIL % 0.1 % (0.0-2.0); EOSINOPHIL % 0 % (0-5); MEAN CORPUSCULAR HGB 26.1 PG (27.0-31.0); MEAN CORPUSCULAR HGB CONC 32.1 G/DL (33.0-37.0); MEAN CORPUSCULAR VOLUME 81.4 FL (81.0-99.0); MEAN PLATELET VOLUME 9.1 FL (7.4-10.4); PLATELET COUNT 289 /CUMM (130-400); RBC DISTRIBUTION WIDTH 15.8 % (11.5-14.5); RED BLOOD CELL CT 4.59 /CUMM (4.20-5.40); WHITE BLOOD CELL COUNT 9.4 /CUMM (4.8-10.8)
--- NOTE | 2016-12-13 09:15 | PN- Housestaff ---
JANETH CHAPARRO,NOVA 12/13/16 0847: Subjective Follow-up For: # acute hypoxic respiratory failure secondary to asthma exacerbation cryptogenic organizing pneumonia with suspected superadded bacterial pneumonia chronic pain at left jaw, depression Complaints: SOB Cough Tele-Events Since Last Visit: [id number] Subjective: I personally examined the patient at bedside she was sitting comfortably in bed in no acute distress shows a nasal oxygen 4 L was saturating at 96%, she reported having shortness of breath and cough Review of Systems Constitutional: Denies: see HPI. Cardiovascular: Denies: no symptoms. Respiratory: Reports: cough, short of breath, sputum production, wheezing. Gastrointestinal: Denies: no symptoms. Genitourinary: Denies: no symptoms. Objective Last 24 Hrs of Vital Signs/I&O Vital Signs Date Time Temp Pulse Resp B/P B/P Pulse O2 O2 Flow FiO2 Mean Ox Delivery Rate 12/13 0820 94 Nasal 4.0L Cannula 12/13 0727 97.7 94 18 114/62 98 CPAP 12/13 0455 92 Venti Mask 45% 12/13 0340 90 91 Venti Mask 45% 12/13 0158 96 Venti Mask 45% 12/13 0149 97.8 102 26 108/78 96 Venti Mask 45% 12/12 2349 96 Venti Mask 45% 12/12 2335 96.7 101 16 134/63 98 Non 100% ReBreather 12/12 2206 98 Non 100% ReBreather 12/12 2118 100 Non 100% ReBreather 12/12 2113 99.6 104 24 139/80 99 Non 100% ReBreather 12/12 2106 126 30 82 Room Air Intake & Output 12/13 1600 12/13 0800 12/13 0000 Intake Total 730 Output Total Balance 730 Intake, IV 250 Intake, Oral 480 Patient 165 lb Weight Weight Reported by Patient Measurement Method Physical Exam General Appearance: Alert, Oriented X3, Cooperative, No Acute Distress Skin: No Rashes, No Breakdown, No Significant Lesion Skin Temp/Moisture Exam: Warm/Dry Sepsis Skin Exam (color): Normal for Ethnicity HEENT: Atraumatic, PERRLA, EOMI, Mucous Membr. moist/pink Neck: Supple, No JVD Cardiovascular: Regular Rate, Normal S1, Normal S2, No Murmurs Lungs: wide spread wheezes and crepitation Abdomen: Normal Bowel Sounds, Soft, No Tenderness Neurological: Normal Speech, Strength at 5/5 X4 Ext, Normal Tone, Sensation Intact, Cranial Nerves 3-12 NL Extremities: No Edema Current Medications: Current Medications Sig/Nathan Start time Last Medication Dose Route Stop Time Status Admin Acetaminophen 650 MG Q6P PRN 12/13 0230 AC PO Albuterol Sulfate 15 ML ONCE ONE 12/12 2214 DC 12/12 INH 12/12 Albuterol Sulfate 9 ML ONCE ONE 12/12 2199 DC 12/12 INH 12/12 Albuterol Sulfate 3 ML ONCE ONE 12/12 2114 DC 12/12 INH 12/12 Albuterol Sulfate 3 ML ONCE ONE 12/12 2114 DC 12/12 INH 12/12 Albuterol Sulfate 3 ML ONCE ONE 12/12 2114 DC 12/12 INH 12/12 Budesonide/ 2 PUF BID 12/13 1000 AC Formoterol Fumarate INH Ceftazidime 2,000 MG IQ8 12/13 0800 AC IV Ceftazidime 0 .STK-MED ONE 12/12 2308 DC .ROUTE Ceftazidime 1,000 MG ONCE ONE 12/12 2245 DC 12/12 IV 12/12 2246 2310 Enoxaparin Sodium 40 MG DAILY 12/13 1000 AC SC Ipratropium [place] 2.5 ML ONCE ONE 12/12 2114 DC INH 12/13 2115 Loratadine 10 MG 2200 12/13 2199 AC PO Magnesium Sulfate 2 GM ONCE ONE 12/12 2114 DC 12/12 Dextrose/Water 100 ML IV 12/13 0114 2203 Methylprednisolone 40 MG Q6 12/13 0600 AC 12/13 IV 0604 Methylprednisolone 0 .STK-MED ONE 12/12 2133 DC .ROUTE Methylprednisolone 125 MG ONCE ONE 12/12 2114 DC 12/12 IV 12/13 2115 213 Montelukast Sodium 10 MG QPM 12/13 2200 AC PO Omeprazole 20 MG DAILY AC 12/13 0700 AC 12/13 PO 0604 Oxycodone HCl 30 MG Q4P PRN 12/13 0145 AC 12/13 PO 0609 Paroxetine HCl 60 MG DAILY 12/13 1000 AC PO Sodium Chloride 1,000 ML Q8H 12/13 0345 AC 12/13 IV 12/13 1144 0358 Tiotropium [place] 1 PUF DAILY 12/13 1000 AC INH Trazodone HCl 150 MG QPM 12/13 2199 AC PO Vancomycin HCl 1,000 MG DAILY 12/13 2199 AC Sodium Chloride 250 ML IV Vancomycin HCl 0 .STK-MED ONE 12/12 2308 DC .ROUTE Vancomycin HCl 1,000 MG ONCE ONE 12/12 2245 DC 12/12 Sodium Chloride 250 ML IV 12/12 2344 2312 Last 24 Hrs of Lab/Luke Results Last 24 Hrs of Labs/Mics: Laboratory Tests 12/13/16 0650: Lactic Acid 4.3 H 12/13/16 0650: Anion Gap 14, Estimated GFR > 60, BUN/Creatinine Ratio 10.0, CBC w Diff Pending, WBC Pending, RBC Pending, Hgb Pending, Hct Pending, MCV Pending, MCH Pending, RDW Pending, Plt Count Pending, MPV Pending, PUBS MCHC Pending 12/13/16 0220: Lactic Acid 3.3 H 12/13/16 0030: pH 7.36, pCO2 46 H, pO2 88, HCO3 25, ABG O2 Sat (Measured) 96.0, Carboxyhemoglobin 0.3 L, O2 Concentration % .45, O2 Delivery Method V/M, Phlebotomy Draw Site RIGHT BRACHIAL 12/12/162133: Anion Gap 11, Estimated GFR > 60, BUN/Creatinine Ratio 8.8, Glucose 91, Calcium 9.6, Magnesium 1.9, Total Bilirubin 0.9, AST 21, ALT 24, Alkaline Phosphatase 89 , Total Protein 7.7, Albumin 4.7, Globulin 3.0, Albumin/Globulin Ratio 1.6, Total Beta HCG NEGATIVE, CBC w Diff NO MAN DIFF REQ, RBC 5.27, MCV 82.4, MCH 26.4 L, RDW 15.8 H, MPV 8.6, Gran % 61.9, Lymphocytes % 23.7, Monocytes % 4.6, Eosinophils % 9.3 H, Basophils % 0.5, Absolute Granulocytes 8.1 H, Absolute Lymphocytes 3.1, Absolute Monocytes 0.6, Absolute Eosinophils 1.2, Absolute Basophils 0.1, PUBS MCHC 32.0 L Microbiology 12/13 148 URINE ROUT: Legionella Antigen - COLB 12/13 148 URINE ROUT: Streptococcus pneumoniae Antigen (M - COLB 07/21 0149 LOWER RESP: Respiratory Culture - COLB 12/13 014 LOWER RESP: Gram Stain - COLB 12/12 215 BLOOD: Blood Culture - RECD 12/13 2143 BLOOD: Blood Culture - RECD Orders Radiology Findings: CT Chest: Patchy multifocal groundglass opacities throughout both lungs in a similar distribution to the prior study with new opacities in some areas and resolution of previously seen opacities in others. Overall burden of opacities is not significantly changed from 09/28/2016. As previously noted, the pattern is suggestive of cryptogenic organizing pneumonia, though other inflammatory and infectious etiologies are possible. 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 She is on home dose of prednisone 40 mg. She is one of Dr. Verdugo patient's.She presented to the ED for worsening shortness of breath, pleuritic chest pain, peresistant cough.She was desaturated on room air, tachycardic She was treated with IV Solu-Medrol, nonreproducible mask 100% oxygen and nebulizer. Vital signs on admission heart rate 100, blood pressure stable, no fever O2 saturation more than 92% on 40% ventimask. Labs: WBC 13.1, hemoglobin 13.9, hematocrit 43.4, platelets 357, RDW 15.8, neutrophils 61%, eosinophils 9.3% ,BMP, LFT unremarkable ,ABG 7.36/46/88/25 on 45% venture mask CXR: 1. Small focus of hazy opacification within the right lung base which could correspond to atelectasis or developing infiltrate. 2. Recommendation is for a followup chest series to be obtained following treatment and/or resolution of symptoms to assure resolution of this appearance. CT chest without contast: Again seen are patchy foci of groundglass attenuation throughout both lungs with adjacent interstitial thickening, consistent with a crazy paving pattern. The involvement of the lung bases appears improved as compared to the prior study, though as does the calcification in the right middle lobe and left upper lobe appears more pronounced. Opacities in the right upper lobe are different than prior, though in a similar distribution and not significantly changed in extent. # acute hypoxic respiratory failure: Secondary to asthma exacerbation versus persistent cryptogenic organizing pneumonia versus with the superadded bacterial pneumonia Continue IV methylprednisone 40 mg Q 12 DC ceftazidime and vancomycin as per dr Verdugo ( low possibility of infection) We'll continue to monitor her off antibiotics Continuous pulse oximetry monitoring Follow-up one urine strep and Legionella Blood cultures, sputum culture , in lactate History and TRC, nebulizer Continue to monitor in telemetry Pulmonary consult appreciated #TMJ disease: 1. Continue her home doses of pain meds #Depression: The patient has history of depression Continue home meds paroxetine by mouth Full code DVT prophylaxis: Lovenox Regular Most probably secondary to asthma exacerbation versus cryptogenic pneumonia with superadded bacterial infection Problem List: 1. Asthma with acute exacerbation in adult 2. Multifocal pneumonia 3. Hypoxia 4. Cryptogenic organizing pneumonia 5. TMJ (temporomandibular joint syndrome) 6. Acute and chronic respiratory failure with hypoxia 7. Depression Pain Ratin Pain Location: N/A Pain Goal: Remain pain free Pain Plan: TYLENOL Tomorrow's Labs & Rationales: CBC BEP DVT/Prophylaxis: pharmacological JOHN CHAPARRO,DEION 12/13/16 1223: Attending MD Review Statement Attending Statement Attending MD Statement: examined this patient, discuss w/resident/PA/HOT DIPPER, agreed w/resident/PA/HOT DIPPER, reviewed EMR data (avail), discussed with nursing, discussed with case mgmt, amended to note Attending Assessment/Plan: Patient seen and examined. Lying comfortably in bed not in any acute distress. She reports feeling better. She reports secondhand smoke exposure from her ex- boyfriend. She denies chest pain. She denies nausea vomiting. She reports good appetite. She is currently hemodynamically stable and maintaining saturation on 3 L of oxygen. On examination she is not in any respiratory distress. She has fair entry bilaterally with mild expiratory rhonchi. She has no clinical evidence of infection at present. She is afebrile. She is hemodynamically stable. Leukocytosis presents on presentation yesterday have resolved today. It is noted she is on chronic steroid therapy. Chest CT was suggestive of no significant overall change in burden of opacities. Previously seen opacities were resolved but a new opacity was seen in some areas. Pulmonary consultation appreciated. Recommendations as management in case of asthma exacerbation. She is noted to have eosinophilia on her labs. Recommendations: -Continue bronchodilator therapy. -Continue systemic steroid therapy. Okay to reduce dose to twice daily. -Obtain sputum cultures if able. -Continue oxygen supplementation. Patient will require home O2 at nighttime per recommendations of the pulmonology service. -Patient to consider undergoing a lung biopsy to establish a diagnosis of cryptogenic organizing pneumonia. -Pulmonology service is considering monitoring patient off antibiotic therapy. Follow-up sputum cultures. If patient remains afebrile and lactic acid begins to trend downwards may consider discontinuing antibiotic therapy. -Continue IV hydration for now until the lactic acid level is trending downwards.
[2016-12-13 09:50] LABS: HEMATOCRIT 37.4 % (37-47)
[2016-12-13 09:51] LABS: GRANULOCYTE % 93.7 % (42.2-75.2)
--- NOTE | 2016-12-13 10:22 | Cons- Pulmonary ---
General Information and HPI Consulting Request Date of Consult: 12/13/16 Requested By: Dr. Sky Reason for Consult: hypoxemic respiratory failure Source of Information: patient, old records Exam Limitations: no limitations History of Present Illness: 36 year old woman. Known to me. Hx of presumed cryptogenic organizing pneumonia. On steroids, currently at home on 40mg prednisone. Has declined lung bx previously. Hx of asthma. Exposed to smoking from boyfriend, with whom she just . She presented in hypoxemic respiratory failure, saturation at home per patient was as low as 79%. She had a mild leukocytosis which can be contributed to steroids. She feels somewhat better, but still with dyspnea and hypoxemia. Her CT scan has minimal change from September 2016. 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 No fevers, no chills, no n/v/d/c. + Anxiety, no sick contacts, + tobacco exposure. No cp, no headaches, no dizziness. Allergies/Medications Allergies: Coded Allergies: NO KNOWN ALLERGIES (07/30/16) Home Med List: Albuterol Sulfate (Proair Hfa) 90 MCG HFA.AER.AD 2 PUF INH Q4-6 PRN PRN RESPIRATORY (Reported) Budesonide/Formoterol Fumarate (Symbicort 160-4.5 Mcg Inhaler) 160 MCG-4.5 MCG/ ACTUATION HFA.AER.AD 2 PUF INH BID SOB (Reported) Cetirizine HCl (Zyrtec) 10 MG TABLET 1 TAB PO AT BEDTIME Allergies INSTRUCTED Montelukast Sodium 10 MG TABLET 1 TAB PO QPM ALLERGIES (Reported) Omeprazole Magnesium 20 MG CAPSULE.DR 1 CAP PO DAILY GI (Reported) Oxycodone HCl 30 MG TABLET 1 TAB PO Q4P PRN PAIN Paroxetine HCl 30 MG TABLET 2 TAB PO DAILY MENTAL HEALTH (Reported) Prednisone 20 MG TABLET 1 TAB PO BID ASTHMA (Reported) Tiotropium [place] (Spiriva) 18 MCG CAP.W.DEV 1 CAP INH DAILY ASTHMA ( Reported) Trazodone HCl 50 MG TABLET 3 TAB PO QPM SLEEP (Reported) Current Medications: Current Medications Sig/Nathan Start time Last Medication Dose Route Stop Time Status Admin Acetaminophen 650 MG Q6P PRN 12/13 0230 AC PO Albuterol Sulfate 15 ML ONCE ONE 12/12 2214 DC 12/12 INH 12/12 Albuterol Sulfate 9 ML ONCE ONE 12/12 2199 DC 12/12 INH 12/12 Albuterol Sulfate 3 ML ONCE ONE 12/12 2114 DC 12/12 INH 12/12 Albuterol Sulfate 3 ML ONCE ONE 12/12 2114 DC 12/12 INH 12/12 Albuterol Sulfate 3 ML ONCE ONE 12/12 2114 DC 12/12 INH 12/12 Budesonide/ 2 PUF BID 12/13 1000 AC 12/13 Formoterol Fumarate INH 09 Ceftazidime 2,000 MG IQ8 12/13 0800 AC 12/13 IV 0929 Ceftazidime 0 .STK-MED ONE 12/13 2307 DC .ROUTE Ceftazidime 1,000 MG ONCE ONE 12/125 DC 12/12 IV 12/12 224 2310 Enoxaparin Sodium 40 MG DAILY 12/13 1000 AC 12/13 SC 0930 Ipratropium [place] 2.5 ML ONCE ONE 12/12 2114 DC INH 12/13 2115 Loratadine 10 MG 2200 12/13 2199 AC PO Magnesium Sulfate 2 GM ONCE ONE 12/12 2114 DC 12/12 Dextrose/Water 100 ML IV 12/13 113 2203 Methylprednisolone 40 MG Q6 12/13 0600 AC 12/13 IV 0604 Methylprednisolone 0 .STK-MED ONE 12/12 2133 DC .ROUTE Methylprednisolone 125 MG ONCE ONE 12/12 2114 DC 12/12 IV 12/12 Montelukast Sodium 10 MG QPM 12/13 2200 AC PO Omeprazole 20 MG DAILY AC 12/13 0700 AC 12/13 PO 0604 Oxycodone HCl 30 MG Q4P PRN 12/13 0145 AC 12/13 PO 0609 Paroxetine HCl 60 MG DAILY 12/13 1000 AC 12/13 PO 0930 Sodium Chloride 1,000 ML Q8H 12/13 0345 AC 12/13 IV 12/13 1944 0358 Tiotropium [place] 1 PUF DAILY 12/13 1000 AC 12/13 INH 0931 Trazodone HCl 150 MG QPM 12/13 2200 AC PO Vancomycin HCl 1,000 MG DAILY 12/13 220 AC Sodium Chloride 250 ML IV Vancomycin HCl 0 .STK-MED ONE 07/20 2308 DC .ROUTE Vancomycin HCl 1,000 MG ONCE ONE 12/12 2245 DC 12/12 Sodium Chloride 250 ML IV 12/12 2344 2312 Review of Systems Comments 18 point review of systems performed. Pertinent positive and negative findings are in the HPI, otherwise negative. 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 FH: diabetes mellitus UNCLE-MATERNAL (BOOP). GRANDMOTHER-MATERNAL (CHF). Relation not specified for: FH: CAD (coronary artery disease) FH: HTN (hypertension) FH: ovarian cancer FH: uterine cancer Psychosocial History Where Do You Live? Home Who Do You Live With? SIGNIFICANT OTHER Services at Home: None Primary Language: Maltese Smoking Status: Never Smoked Functional Ability ADLs Independent: dressing, eating, toileting, bathing. Ambulation: independent IADLs Independent: shopping, housework, finances, food prep, telephone, transportation , medication admin. Exam & Diagnostic Data Last 24 Hrs of Vital Signs/I&O Vital Signs Date Time Temp Pulse Resp B/P B/P Pulse O2 O2 Flow FiO2 Mean Ox Delivery Rate 12/13 0820 94 Nasal 4.0L Cannula 12/13 0727 97.7 94 18 114/62 98 CPAP 12/13 0455 92 Venti Mask 45% 12/13 0340 90 91 Venti Mask 45% 12/13 0158 96 Venti Mask 45% 12/13 0149 97.8 102 26 108/78 96 Venti Mask 45% 12/12 2349 96 Venti Mask 45% 12/12 2335 96.7 101 16 134/63 98 Non 100% ReBreather 12/126 98 Non 100% ReBreather 12/12 2117 100 Non 100% ReBreather 12/12 2112 99.6 104 24 139/80 99 Non 100% ReBreather 12/12 2106 126 30 82 Room Air Intake & Output 12/13 1600 12/13 0800 12/13 0000 Intake Total 730 Output Total Balance 730 Intake, IV 250 Intake, Oral 480 Patient 165 lb Weight Weight Reported by Patient Measurement Method Physical Exam Other Physical Findings: gen awake and alert heent ncat cvs s1, s2 lungs end expiratory wheezing abd bs+, elevated bmi ext without edema Last 48 Hrs of Labs/Luke: Laboratory Tests 12/13/16 0650: Lactic Acid 4.3 H 12/13/16 0650: Anion Gap 14, Estimated GFR > 60, BUN/Creatinine Ratio 10.0, CBC w Diff NO MAN DIFF REQ, RBC 4.59, MCV 81.4, MCH 26.1 L, RDW 15.8 H, MPV 9.1, Gran % 93.7 H, Lymphocytes % 5.9 L, Monocytes % 0.3 L, Eosinophils % 0, Basophils % 0.1, Absolute Granulocytes 8.9 H, Absolute Lymphocytes 0.6 L, Absolute Monocytes 0 L, Absolute Eosinophils 0, Absolute Basophils 0, PUBS MCHC 32.1 L 12/13/16 0220: Lactic Acid 3.3 H 12/13/16 0030: pH 7.36, pCO2 46 H, pO2 88, HCO3 25, ABG O2 Sat (Measured) 96.0, Carboxyhemoglobin 0.3 L, O2 Concentration % .45, O2 Delivery Method V/M, Phlebotomy Draw Site RIGHT BRACHIAL 12/12/162133: Anion Gap 11, Estimated GFR > 60, BUN/Creatinine Ratio 8.8, Glucose 91, Calcium 9.6, Magnesium 1.9, Total Bilirubin 0.9, AST 21, ALT 24, Alkaline Phosphatase 89 , Total Protein 7.7, Albumin 4.7, Globulin 3.0, Albumin/Globulin Ratio 1.6, Total Beta HCG NEGATIVE, CBC w Diff NO MAN DIFF REQ, RBC 5.27, MCV 82.4, MCH 26.4 L, RDW 15.8 H, MPV 8.6, Gran % 61.9, Lymphocytes % 23.7, Monocytes % 4.6, Eosinophils % 9.3 H, Basophils % 0.5, Absolute Granulocytes 8.1 H, Absolute Lymphocytes 3.1, Absolute Monocytes 0.6, Absolute Eosinophils 1.2, Absolute Basophils 0.1, PUBS MCHC 32.0 L Assessment/Plan Impression/Plan: Impression 36 year old woman * acute exacerbation of asthma likely from second hand tobacco exposure * presumed crytptogenic organizing pneumonia * hypoxemic respiratory failure due to above * anxiety * elevated bmi * eosinophilia Plan -trc/nebs -cont symbicort, spiriva -singulair and claritin -check IgE level -eosinophils peripherally resolved -reduce solumedrol to 40mg iv q12h -monitor pulse oximetry - goal >92% -requires nocturnal oxygen (arranged at home) -patient can benefit from a lung biopsy, I discussed with patient, based on her present clinical course will make that determination, she remains reluctant -doubt need for antibiotics, consider monitoring off antibiotics -send sputum cx, legionella and strep ag DVT prophylaxis at all times Consult Acknowledgment - Thank you for your consult request.
--- NOTE | 2016-12-13 18:09 | Discharge Summary ---
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 She waas on home dose of prednisone 40 mg. She is one of Dr. Verdugo patient's.She presented to the ED for worsening shortness of breath, pleuritic chest pain, peresistant cough.She was desaturated on room air, tachycardic She was treated in ED with IV Solu-Medrol, nonreproducible mask 100% oxygen and nebulizer. Vital signs on admission heart rate 100, blood pressure stable, no fever O2 saturation more than 92% on 40% ventimask. Labs on admission: WBC 13.1, hemoglobin 13.9, hematocrit 43.4, platelets 357, RDW 15.8, neutrophils 61%, eosinophils 9.3% ,BMP, LFT unremarkable ,ABG 7.36/46/ 88/25 on 45% venture mask CXR: 1. Small focus of hazy opacification within the right lung base which could correspond to atelectasis or developing infiltrate. 2. Recommendation is for a followup chest series to be obtained following treatment and/or resolution of symptoms to assure resolution of this appearance. CT chest without contast: Again seen are patchy foci of groundglass attenuation throughout both lungs with adjacent interstitial thickening, consistent with a crazy paving pattern. The involvement of the lung bases appears improved as compared to the prior study, though as does the calcification in the right middle lobe and left upper lobe appears more pronounced. Opacities in the right upper lobe are different than prior, though in a similar distribution and not significantly changed in extent. # acute hypoxic respiratory failure: Likely was Secondary to asthma exacerbation but still might be due to persistent cryptogenic organizing pneumonia versus with the superadded bacterial pneumonia. She was treated with IV methylprednisone, was monitored off antibiotics for low possibility of active infection, blood cultures, sputum cultures, urine for strep and legonella was sent. She was monitored on telemetry. Her pulse ox was continuously monitored. She was also treated his oxygen, TRC, nebulizer. Dr. Verdugo (her engraving operator) was on board. Shw was sent home on prednisone Ramo aggarwal for PCP prophylaxis. Planning to do lung biopsy in outpatient clinic. #TMJ disease: Patient had history of TMJ disease, she was kept on her home doses of pain meds #Depression: The patient had history of depression. She was kept on her home meds paroxetine by mouth Full code DVT prophylaxis: Lovenox Regular Allergies: Coded Allergies: NO KNOWN ALLERGIES (07/30/16) Disposition Summary Disposition Principal Diagnosis: 1. Asthma with acute exacerbation in adult 2. Multifocal pneumonia 3. Hypoxia 4. Cryptogenic organizing pneumonia Additional Diagnosis: 1-TMJ (temporomandibular joint syndrome) 2- Acute and chronic respiratory failure with hypoxia 3- Depression Discharge Disposition: home or self care Discharge Instructions General Discharge Information Code Status: Full Code Patient's Diet: Regular diet Patient's Activity: As tolerated Follow-Up Instructions/Appts: #1 please follow up with her legal practice manager in 1 week of discharge #2 please follow-up with your PCP in 1 week of discharge Medications at Discharge Discharge Medications: Stop taking the following medications: Prednisone (Prednisone) 20 MG TABLET ORAL TWICE DAILY Continue taking these medications: Tiotropium [place] (Spiriva) 18 MCG CAP.W.DEV 1 Capsule Inhale through mouth DAILY Comments: Last Taken: 12/18/16 Time: 09:26a.m Trazodone HCl (Trazodone HCl) 50 MG TABLET 3 Tablet ORAL Every night Qty = 30 Comments: Last Taken: 12/17/16 Time: 9:48 PM Omeprazole Magnesium (Omeprazole Magnesium) 20 MG CAPSULE.DR 1 Capsule ORAL DAILY Qty = 14 Comments: Last Taken:12/18/16 Time: 6:30A.M Budesonide/Formoterol Fumarate (Symbicort 160-4.5 Mcg Inhaler) 160 MCG-4.5 MCG/ ACTUATION HFA.AER.AD 2 Puff Inhale through mouth TWICE DAILY Comments: Last Taken:12/18/16 Time: 9:26A.M Albuterol Sulfate (Proair Hfa) 90 MCG HFA.AER.AD 2 Puff Inhale through mouth EVERY 4-6 HOURS NEEDED as needed for RESPIRATORY Comments: Last Taken:12/18/16 Time: 7:59A.M Cetirizine HCl (Zyrtec) 10 MG TABLET 1 Tablet ORAL AT BEDTIME Qty = 30 Instructions: INSTRUCTED Comments: NOT GIVEN Oxycodone HCl (Oxycodone HCl) 30 MG TABLET 1 Tablet ORAL EVERY 4 HOURS NEEDED as needed for PAIN Qty = 18 Comments: Last Taken: 12/18/16 Time: 9:26a.m Paroxetine HCl (Paroxetine HCl) 30 MG TABLET 2 Tablet ORAL DAILY Qty = 60 Comments: Last Taken: 12/18/16 Time: 09:26a.m Montelukast Sodium (Montelukast Sodium) 10 MG TABLET 1 Tablet ORAL Every night Comments: Last Taken: 12/17/16 Time:9:48P.M Start taking the following new medications: Prednisone (Prednisone) 20 MG TABLET 2 Tablet ORAL DAILY Qty = 30 No Refills Comments: PLEASE TAKE 2 TAB PO DAILY (40 MG) STARTING FROM 12/21 ONWARDS TILL YOU SEE YOUR GYMNASTIC TEACHER LAST TAKEN: 12/18/16 TIME 9:26A.M Prednisone (Prednisone) 50 MG TABLET 1 Tablet ORAL DAILY Qty = 3 No Refills Instructions: . Comments: Last Taken:12/18/16 Time:9:26A.M PLEASE TAKE ONE TAB PO DAILY (50 MG) ON 12/19,12/20,12/21 Sulfamethoxazole/Trimethoprim (Sulfamethoxazole-Tmp Ds Tablet) 800 MG-160 MG TABLET 1 Tablet ORAL DAILY Qty = 30 No Refills Comments: Last Taken:12/18/16 Time:9:26A.M Copies To: ELVIN CHAPARRO,THEODORA Mehta Attending MD Review Statement Documenting Attending: JOSE ALFREDO PATRICK MD Other Findings: The patient was seen by Dr. Vizcaino on the day of discharge. Plan as above to follow-up with Dr. Verdugo who will arrange OP lung biopsy.
--- NOTE | 2016-12-13 18:13 | Patient Discharge Instructions ---
Discharge Instructions General Discharge Information You were seen/treated for: # acute hypoxic respiratory failure secondary to asthma exacerbation # cryptogenic organizing pneumonia with suspected superadded bacterial pneumonia #TMJ disease in left jaw # depression Watch for these problems: Worsening shortness of breath Increased heart rate Increased respirations. Special Instructions: #1 please follow up with your legal support analyst in 1 week of discharge. You may need an outpatient lung biopsy, which can be arranged at that time. #2 please follow-up with your PCP in 1 week of discharge Diet Continue normal diet: Yes Recommended Diet: Regular Activity Full Activity/No Limits: Yes Acute Coronary Syndrome Inclusion Criteria At DC or during hospital stay patient has or had the following: ACS DIAGNOSIS No Discharge Core Measures Meds if any: Prescribed or Continued at Discharge Meds if any: NOT Prescribed or Continued at Discharge Congestive Heart Failure Inclusion Criteria At DC or during hospital stay patient has or had the following: CHF DIAGNOSIS No Discharge Core Measures Meds if any: Prescribed or Continued at Discharge Meds if any: NOT Prescribed or Continued at Discharge Cerebrovascular accident Inclusion Criteria At DC or during hospital stay patient has or had the following: CVA/TIA Diagnosis No Discharge Core Measures Meds if any: Prescribed or Continued at Discharge Meds if any: NOT Prescribed or Continued at Discharge Venous thromboembolism Inclusion Criteria VTE Diagnosis No VTE Type NONE VTE Confirmed by (Test) NONE Discharge Core Measures - Per Current guidelines, there needs to be overlap - treatment for the first 5 days of Warfarin therapy. - If discharged on Warfarin prior to 5 days of - overlap therapy, the patient will need to be - assessed for post discharge needs including - *Post discharge parental anticoagulation - *Warfarin and/or parental anticoagulation education - *Follow up date to check INR post discharge At least 5 days overlap therapy as Inpatient No Meds if any: Prescribed or Continued at Discharge Note: Overlap Therapy is Warfarin and Anticoagulant Meds if any: NOT Prescribed or Continued at Discharge
[2016-12-13 22:52] VITALS: BP 110/60
[2016-12-14 07:11] VITALS: BP 100/60
--- NOTE | 2016-12-14 08:45 | PN- Housestaff ---
JAMARCUS LACEY 12/14/16 0845: Subjective Follow-up For: Acute hypoxic respiratory failure secondary to asthma exacerbation Cryptogenic organizing pneumonia with suspected superadded bacterial pneumonia Chronic pain at left jaw Depression Subjective: Patient has no complaints. No acute events overnight Review of Systems Constitutional: Reports: see HPI. Objective Last 24 Hrs of Vital Signs/I&O Vital Signs Date Time Temp Pulse Resp B/P B/P Pulse O2 O2 Flow FiO2 Mean Ox Delivery Rate 12/14 1458 97.9 84 20 110/64 94 Nasal Cannula 12/14 0900 Nasal 4.0L Cannula 12/14 0825 Nasal 2.0L Cannula 12/14 0711 98.4 61 20 100/60 93 Nasal Cannula 12/14 0000 Nasal 4.0L Cannula 12/13 2252 97.6 74 20 110/60 91 Nasal 3.0L Cannula 12/13 1600 96 Nasal 4.0L Cannula 12/13 1559 98 Nasal 3.0L Cannula Intake & Output 12/14 1600 12/14 0800 12/14 0000 Intake Total 240 1025 Output Total Balance 240 1025 Intake, IV 375 Intake, Oral 240 650 Physical Exam General Appearance: Alert, Oriented X3, Cooperative, No Acute Distress HEENT: Atraumatic, PERRLA Cardiovascular: Regular Rate, Normal S1, Normal S2 Lungs: Bilateral wheezing on 2LNC Abdomen: Normal Bowel Sounds, Soft, No Tenderness Extremities: No Cyanosis, No Edema, No Tenderness/Swelling Current Medications: Current Medications Sig/Nathan Start time Last Medication Dose Route Stop Time Status Admin Acetaminophen 650 MG Q6P PRN 12/13 0230 AC PO Albuterol Sulfate 3 ML EVERY 4 HRS/AWAKE 12/13 1200 AC 12/14 INH 1221 Budesonide/ 2 PUF BID 12/13 1000 AC 12/14 Formoterol Fumarate INH 1022 Enoxaparin Sodium 40 MG DAILY 12/13 1000 AC 12/14 SC 1021 Loratadine 10 MG 2200 12/130 AC 12/13 PO 2133 Methylprednisolone 40 MG Q12 12/13 2199 AC 12/14 IV 1019 Montelukast Sodium 10 MG QPM 12/13 2200 AC 12/13 PO 2133 Omeprazole 20 MG DAILY AC 12/13 0700 AC 12/14 PO 0652 Oxycodone HCl 30 MG .STK-MED ONE 12/13 1625 DC PO 12/13 1626 Oxycodone HCl 30 MG Q4P PRN 12/13 0145 AC 12/14 PO 1506 Paroxetine HCl 60 MG DAILY 12/13 1000 AC 12/14 PO 1019 Sodium Chloride 1,000 ML Q8H 12/13 0345 DC 12/13 IV 12/13 1944 1111 Tiotropium [place] 1 PUF DAILY 12/13 1000 AC 12/14 INH 1022 Trazodone HCl 150 MG QPM 12/13 2200 AC 12/13 PO 2133 Assessment/Plan Assessment: 76-year-old lady with past medical history of cryptogenic organizing pneumonia ( without any biopsy to prove the diagnosis), asthma, allergy to dust, fibromyalgia, TMJ disorder, 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 She is on home dose of prednisone 40 mg. She is one of Dr. Verdugo patient's.She presented to the ED for worsening shortness of breath, pleuritic chest pain, peresistant cough.She was desaturated on room air, tachycardic She was treated with IV Solu-Medrol, nonreproducible mask 100% oxygen and nebulizer. Vital signs on admission heart rate 100, blood pressure stable, no fever O2 saturation more than 92% on 40% ventimask. Labs: WBC 13.1, hemoglobin 13.9, hematocrit 43.4, platelets 357, RDW 15.8, neutrophils 61%, eosinophils 9.3% ,BMP, LFT unremarkable ,ABG 7.36/46/88/25 on 45% venture mask CXR: 1. Small focus of hazy opacification within the right lung base which could correspond to atelectasis or developing infiltrate. 2. Recommendation is for a followup chest series to be obtained following treatment and/or resolution of symptoms to assure resolution of this appearance. CT chest without contast: Again seen are patchy foci of groundglass attenuation throughout both lungs with adjacent interstitial thickening, consistent with a crazy paving pattern. The involvement of the lung bases appears improved as compared to the prior study, though as does the calcification in the right middle lobe and left upper lobe appears more pronounced. Opacities in the right upper lobe are different than prior, though in a similar distribution and not significantly changed in extent. # acute hypoxic respiratory failure: Secondary to asthma exacerbation versus persistent cryptogenic organizing pneumonia versus with the superadded bacterial pneumonia DC ceftazidime and vancomycin as per dr Verdugo ( low possibility of infection) We'll continue to monitor her off antibiotics Continuous pulse oximetry monitoring Follow-up one urine strep and Legionella Blood cultures, sputum culture , in lactate History and TRC, nebulizer Continue to monitor in telemetry Pulmonary consult appreciated Discontinued IV methylprednisone 40 mg Q 12 for 12/14 last dose, to start Prednisone 60mg PO 12/15 #TMJ disease: 1. Continue her home doses of pain meds #Depression: The patient has history of depression Continue home meds paroxetine by mouth Full code DVT prophylaxis: Lovenox Regular Most probably secondary to asthma exacerbation versus cryptogenic pneumonia with superadded bacterial infection Problem List: 1. Cryptogenic organizing pneumonia 2. Acute and chronic respiratory failure with hypoxia 3. Pneumonia 4. Asthma exacerbation 5. TMJ (temporomandibular joint syndrome) Pain Ratin Pain Location: N/A Pain Goal: Remain pain free Pain Plan: N/A Tomorrow's Labs & Rationales: CBC BEP FELIX LOPEZ MD,DEION 12/14/16 0917: Attending MD Review Statement Attending Statement Attending MD Statement: examined this patient, discuss w/resident/PA/[employer] SPECIAL AGENT, agreed w/resident/PA/[employer] SPECIAL AGENT, reviewed EMR data (avail), discussed with nursing, amended to note Attending Assessment/Plan: Patient seen and examined. Resting comfortably and not in any acute distress. Reports feeling better. Denies shortness of breath or cough this morning. She is maintaining saturation on 2 L of oxygen. On examination lungs are clear to auscultation bilaterally. She has no new complaints this morning. Recommendations: -Continue Solu-Medrol 40 mg IV every 12 today. Transition to prednisone 40 mg orally daily tomorrow. -Mobilize patient. -Anticipate discharge in the next 48 hours if she continues to improve clinically. -Out-Patient follow-up with the pulmonary service for consideration of lung biopsy. -Lactic acid level is trending down. Discontinue IV hydration. -She has been unable to provide sputum for cultures. She is afebrile. Leukocytosis has resolved. Antibiotics were discontinued per recommendations of the pulmonology service.
--- NOTE | 2016-12-14 11:42 | PN- Pulmonary ---
Subjective HPI/Critical Care Issues: pt seen and examined saturating 93% on 2LNC feels better still wheezing Objective Current Medications: Current Medications Sig/Nathan Start time Last Medication Dose Route Stop Time Status Admin Acetaminophen 650 MG Q6P PRN 12/13 0230 AC PO Albuterol Sulfate 3 ML EVERY 4 HRS/AWAKE 12/13 1200 AC 12/14 INH 0824 Budesonide/ 2 PUF BID 12/13 1000 AC 12/14 Formoterol Fumarate INH 1022 Ceftazidime 2,000 MG IQ8 12/13 0800 DC 12/13 IV 0929 Enoxaparin Sodium 40 MG DAILY 12/13 1000 AC 12/14 SC 1021 Loratadine 10 MG 2200 12/13 2200 AC 12/13 PO 2133 Methylprednisolone 40 MG Q12 12/13 2200 AC 12/14 IV 1019 Montelukast Sodium 10 MG QPM 12/13 2200 AC 12/13 PO 2133 Omeprazole 20 MG DAILY AC 12/13 0700 AC 12/14 PO 0652 Oxycodone HCl 30 MG .STK-MED ONE 12/13 1625 DC PO 12/13 1626 Oxycodone HCl 30 MG Q4P PRN 12/13 0145 AC 12/14 PO 1020 Paroxetine HCl 60 MG DAILY 12/13 1000 AC 12/14 PO 1019 Sodium Chloride 1,000 ML Q8H 12/13 0345 DC 12/13 IV 12/13 1944 1111 Tiotropium [place] 1 PUF DAILY 12/13 1000 AC 12/14 INH 1022 Trazodone HCl 150 MG QPM 12/13 2200 AC 12/13 PO 2133 Vancomycin HCl 1,000 MG DAILY 12/13 2200 CAN Sodium Chloride 250 ML IV Vital Signs & I&O Last 24 Hrs of Vitals and I&O: Vital Signs Date Time Temp Pulse Resp B/P B/P Pulse O2 O2 Flow FiO2 Mean Ox Delivery Rate 12/14 0825 Nasal 2.0L Cannula 12/14 0711 98.4 61 20 100/60 93 Nasal Cannula 12/14 0000 Nasal 4.0L Cannula 12/13 2252 97.6 74 20 110/60 91 Nasal 3.0L Cannula 12/13 1600 96 Nasal 4.0L Cannula 12/13 1559 98 Nasal 3.0L Cannula 12/13 1413 Nasal 3.0L Cannula Intake & Output 12/14 1600 12/14 0800 12/14 0000 Intake Total 240 1025 Output Total Balance 240 1025 Intake, IV 375 Intake, Oral 240 650 Exam Other Physical Findings: gen awake and alert heent ncat cvs s1, s2 lungs end expiratory wheezing abd bs+, elevated bmi ext without edema Results Last 24 Hrs of Lab Results: Laboratory Tests 12/13/16 1230: Lactic Acid 2.7 H, IgE 152 H Impression/Plan Impression/Plan Impression/Plan: Impression 36 year old woman * acute exacerbation of asthma likely from second hand tobacco exposure * presumed crytptogenic organizing pneumonia * hypoxemic respiratory failure due to above * anxiety * elevated bmi * eosinophilia Plan -trc/nebs -cont symbicort, spiriva -singulair and claritin -IgE is 152 from 442 and eosinophilia resolved -cont solumedrol to 40mg iv q12h today and reduce to 60mg prednisone tomorrow -monitor pulse oximetry - goal >92% -requires nocturnal oxygen (arranged at home) -patient can benefit from a lung biopsy, I discussed with patient, based on her present clinical course will make that determination, she remains reluctant -no obvious infection and would consider monitoring off antibiotics DVT prophylaxis at all times DC planning
[2016-12-14 14:58] VITALS: BP 110/64
[2016-12-14 22:37] VITALS: BP 100/60
[2016-12-15 06:39] VITALS: BP 103/64
[2016-12-15 08:27] LABS: ABSOLUTE BASOPHIL COUNT 0 /CUMM (0.0-0.2); ABSOLUTE EOSINOPHIL COUNT 0 /CUMM (0.0-0.7); ABSOLUTE GRANULOCYTE CT 14.8 /CUMM (1.4-6.5); ABSOLUTE LYMPH COUNT 1.1 /CUMM (1.2-3.4); ABSOLUTE MONOCYTE COUNT 0.4 /CUMM (0.10-0.60); BASOPHIL % 0.1 % (0.0-2.0); EOSINOPHIL % 0 % (0-5); GRANULOCYTE % 91.1 % (42.2-75.2); HEMATOCRIT 36.5 % (37-47); MEAN CORPUSCULAR HGB 26.5 PG (27.0-31.0); MEAN CORPUSCULAR HGB CONC 32.2 G/DL (33.0-37.0); MEAN CORPUSCULAR VOLUME 82.3 FL (81.0-99.0); MEAN PLATELET VOLUME 9.6 FL (7.4-10.4); PLATELET COUNT 306 /CUMM (130-400); RBC DISTRIBUTION WIDTH 16.2 % (11.5-14.5); RED BLOOD CELL CT 4.44 /CUMM (4.20-5.40)
--- NOTE | 2016-12-15 09:49 | PN- Pulmonary ---
Subjective HPI/Critical Care Issues: pt seen and examined o2 is at 4LNC still with dyspnea but wheezing improved difficulty staying asleep able to ambulate Objective Current Medications: Current Medications Sig/Nathan Start time Last Medication Dose Route Stop Time Status Admin Acetaminophen 650 MG Q6P PRN 12/13 0230 AC PO Albuterol Sulfate 3 ML EVERY 4 HRS/AWAKE 12/13 1200 AC 12/15 INH 0732 Budesonide/ 2 PUF BID 12/13 1000 AC 12/15 Formoterol Fumarate INH 0920 Enoxaparin Sodium 40 MG DAILY 12/13 1000 AC 12/15 SC 0922 Loratadine 10 MG 2200 12/13 2200 AC 12/14 PO 2202 Methylprednisolone 40 MG Q12 12/13 2200 DC 12/14 IV 12/14 2359 2203 Montelukast Sodium 10 MG QPM 12/13 2200 AC 12/14 PO 2202 Omeprazole 20 MG DAILY AC 12/13 0700 AC 12/15 PO 0632 Oxycodone HCl 30 MG .STK-MED ONE 12/14 1505 DC PO 12/14 1506 Oxycodone HCl 30 MG Q4P PRN 12/13 0145 AC 12/15 PO 0921 Paroxetine HCl 60 MG DAILY 12/13 1000 AC 12/15 PO 0923 Prednisone 60 MG DAILY 12/15 1000 AC 12/15 PO 0922 Tiotropium [place] 1 PUF DAILY 12/13 1000 AC 12/15 INH 0923 Trazodone HCl 150 MG QPM 12/13 2200 AC 12/14 PO 2202 Vital Signs & I&O Last 24 Hrs of Vitals and I&O: Vital Signs Date Time Temp Pulse Resp B/P B/P Pulse O2 O2 Flow FiO2 Mean Ox Delivery Rate 12/15 0743 94 Nasal 2.0L Cannula 12/15 0639 98.4 88 20 103/64 94 Nasal 2.0L Cannula 12/15 0000 Nasal 2.0L Cannula 12/147 98.0 82 20 100/60 95 Nasal Cannula 12/14 1615 93 Nasal 2.0L Cannula 12/14 1458 97.9 84 20 110/64 94 Nasal Cannula Intake & Output 12/15 1600 12/15 0800 12/15 0000 Intake Total 240 600 Output Total Balance 240 600 Intake, Oral 240 600 Exam Other Physical Findings: gen awake and alert heent ncat cvs s1, s2 lungs end expiratory wheezing abd bs+, elevated bmi ext without edema Results Last 24 Hrs of Lab Results: Laboratory Tests 12/15/16 0605: Anion Gap 12, Estimated GFR > 60, BUN/Creatinine Ratio 17.1, Lactic Acid 3.0 H, CBC w Diff Pending, WBC Pending, RBC Pending, Hgb Pending, Hct Pending, MCV Pending, MCH Pending, RDW Pending, Plt Count Pending, MPV Pending, Gran % Pending, Lymphocytes % Pending, Monocytes % Pending, Eosinophils % Pending, Basophils % Pending, Absolute Granulocytes Pending, Absolute Lymphocytes Pending , Absolute Monocytes Pending, Absolute Eosinophils Pending, Absolute Basophils Pending, PUBS MCHC Pending Impression/Plan Impression/Plan Impression/Plan: Impression 36 year old woman * acute exacerbation of asthma likely from second hand tobacco exposure * presumed crytptogenic organizing pneumonia * hypoxemic respiratory failure due to above * anxiety * elevated bmi * eosinophilia resolved Plan -trc/nebs -cont symbicort, spiriva -singulair and claritin -IgE is 152 from 442 and eosinophilia resolved -60mg prednisone x 3 days, 50x3, then remain on 40mg as outpatient and f/u with me in office -will d/w pt and consider bactrim for PCP prophylaxis given high steroids- if pt agreeble would begin prophylactic Bactrim (PO) -monitor pulse oximetry - goal >92% -requires nocturnal oxygen (arranged at home) -patient can benefit from a lung biopsy, I discussed with patient, based on her present clinical course will make that determination, she remains reluctant -no obvious infection and would consider monitoring off antibiotics DVT prophylaxis at all times DC planning
--- NOTE | 2016-12-15 09:57 | PN- Housestaff ---
JANETH CHAPARRO,NOVA 12/15/16 0956: Subjective Follow-up For: Acute hypoxic respiratory failure secondary to asthma exacerbation Cryptogenic organizing pneumonia with suspected superadded bacterial pneumonia Chronic pain at left jaw Depression Complaints: SOB Subjective: I personally seen the patient at bedside, she looked short of breath" weeker, was on nasal cannula on 4 L oxygen Review of Systems Constitutional: Reports: diaphoresis, malaise, weakness. EENTM: Denies: no symptoms. Cardiovascular: Denies: no symptoms. Respiratory: Reports: cough, short of breath, sputum production, wheezing. Gastrointestinal: Denies: no symptoms. Genitourinary: Denies: no symptoms. Neurological/Psychological: Denies: no symptoms. Objective Last 24 Hrs of Vital Signs/I&O Vital Signs Date Time Temp Pulse Resp B/P B/P Pulse O2 O2 Flow FiO2 Mean Ox Delivery Rate 12/15 0743 94 Nasal 2.0L Cannula 12/15 0639 98.4 88 20 103/64 94 Nasal 2.0L Cannula 12/15 0000 Nasal 2.0L Cannula 12/14 2237 98.0 82 20 100/60 95 Nasal Cannula 12/14 1615 93 Nasal 2.0L Cannula 12/14 1458 97.9 84 20 110/64 94 Nasal Cannula Intake & Output 12/15 1600 12/15 0800 12/15 0000 Intake Total 240 600 Output Total Balance 240 600 Intake, Oral 240 600 Physical Exam General Appearance: Alert, Oriented X3, Cooperative, No Acute Distress, Mild Distress Skin: No Rashes, No Breakdown, No Significant Lesion Skin Temp/Moisture Exam: Warm/Dry HEENT: Atraumatic, PERRLA, EOMI, Mucous Membr. 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 She is on home dose of prednisone 40 mg. She is one of Dr. Verdugo patient's.She presented to the ED for worsening shortness of breath, pleuritic chest pain, peresistant cough.She was desaturated on room air, tachycardic She was treated with IV Solu-Medrol, nonreproducible mask 100% oxygen and nebulizer. Vital signs on admission heart rate 100, blood pressure stable, no fever O2 saturation more than 92% on 40% ventimask. Labs: WBC 13.1, hemoglobin 13.9, hematocrit 43.4, platelets 357, RDW 15.8, neutrophils 61%, eosinophils 9.3% ,BMP, LFT unremarkable ,ABG 7.36/46/88/25 on 45% venture mask CXR: 1. Small focus of hazy opacification within the right lung base which could correspond to atelectasis or developing infiltrate. 2. Recommendation is for a followup chest series to be obtained following treatment and/or resolution of symptoms to assure resolution of this appearance. CT chest without contast: Again seen are patchy foci of groundglass attenuation throughout both lungs with adjacent interstitial thickening, consistent with a crazy paving pattern. The involvement of the lung bases appears improved as compared to the prior study, though as does the calcification in the right middle lobe and left upper lobe appears more pronounced. Opacities in the right upper lobe are different than prior, though in a similar distribution and not significantly changed in extent. # acute hypoxic respiratory failure: Worsened, pulse ox is 94 on 4 L today Secondary to asthma exacerbation versus persistent cryptogenic organizing pneumonia versus with the superadded bacterial pneumonia DC ceftazidime and vancomycin as per dr Verdugo ( low possibility of infection) Bactrim twice a day was started. PCP prophylaxis as PER Dr. Verdugo recommendation We'll continue to monitor her off antibiotics Continuous pulse oximetry monitoring Follow-up one urine strep and Legionella Blood cultures, sputum culture , in lactate History and TRC, nebulizer Continue to monitor in telemetry Discontinued IV methylprednisone 40 mg Q 12 for 12/14 last dose, Continue Prednisone taper 60mg PO started ON 12/15 #TMJ disease: 1. Continue her home doses of pain meds #Depression: The patient has history of depression Continue home meds paroxetine by mouth Full code DVT prophylaxis: Lovenox Regular Most probably secondary to asthma exacerbation versus cryptogenic pneumonia with superadded bacterial infection Problem List: 1. Acute and chronic respiratory failure with hypoxia 2. Asthma Pain Ratin Pain Location: N/A Pain Goal: Remain pain free Pain Plan: TYLENOL Tomorrow's Labs & Rationales: CBC BEP LACTATE DVT/Prophylaxis: mechanical JOHN CHAPARRO,DEION 12/15/16 1331: Attending MD Review Statement Attending Statement Attending MD Statement: examined this patient, discuss w/resident/PA/EDGE DRUMMER, agreed w/resident/PA/EDGE DRUMMER, reviewed EMR data (avail), discussed with nursing, amended to note Attending Assessment/Plan: And examined. Resting comfortably and not in acute distress. No issues overnight. She continues to require oxygen supplementation during the day. At home she is only on oxygen at night. She offers no complaints today and reports feeling better. On examination she has good entry bilaterally with no added sounds. Laboratory data reveals significant increase of her white cell count likely secondary to steroid therapy. Recommendations: -Continue bronchodilator therapy. -Gl Accountant service is considering prophylactic dose of Bactrim for PCP. Please follow-up. -Anticipate discharge in the next 24-48 hours. -Assess need for daytime oxygen supplementation prior to discharge. -Repeat CBC in a.m.
[2016-12-15 10:08] LABS: WHITE BLOOD CELL COUNT 16.2 /CUMM (4.8-10.8)
[2016-12-15 14:33] VITALS: BP 104/80
[2016-12-15 22:00] VITALS: BP 104/68
[2016-12-16 05:40] VITALS: BP 110/66
[2016-12-16 08:30] LABS: ABSOLUTE BASOPHIL COUNT 0 /CUMM (0.0-0.2); ABSOLUTE EOSINOPHIL COUNT 0 /CUMM (0.0-0.7); ABSOLUTE GRANULOCYTE CT 12.1 /CUMM (1.4-6.5); ABSOLUTE LYMPH COUNT 1.8 /CUMM (1.2-3.4); ABSOLUTE MONOCYTE COUNT 0.7 /CUMM (0.10-0.60); BASOPHIL % 0.2 % (0.0-2.0); EOSINOPHIL % 0.1 % (0-5); GRANULOCYTE % 82.7 % (42.2-75.2); HEMATOCRIT 37.6 % (37-47); MEAN CORPUSCULAR HGB 26.4 PG (27.0-31.0); MEAN CORPUSCULAR HGB CONC 32.2 G/DL (33.0-37.0); PLATELET COUNT 295 /CUMM (130-400); RBC DISTRIBUTION WIDTH 16.8 % (11.5-14.5); RED BLOOD CELL CT 4.58 /CUMM (4.20-5.40); WHITE BLOOD CELL COUNT 14.7 /CUMM (4.8-10.8)
--- NOTE | 2016-12-16 08:46 | PN- Housestaff ---
See Addendum Subjective Follow-up For: Acute hypoxic respiratory failure secondary to asthma exacerbation Cryptogenic organizing pneumonia with suspected superadded bacterial pneumonia Chronic pain at left jaw Depression Complaints: SOB Subjective: And personally examined the patient at bedside, she reports having shortness of breath, sweating, and low-grade fever in addition to increased cough Review of Systems Constitutional: Reports: diaphoresis. Denies: see HPI. Cardiovascular: Denies: no symptoms. Respiratory: Reports: cough, short of breath, wheezing. Gastrointestinal: Denies: no symptoms. Genitourinary: Denies: no symptoms. Neurological/Psychological: Denies: no symptoms. Objective Last 24 Hrs of Vital Signs/I&O Vital Signs Date Time Temp Pulse Resp B/P B/P Pulse O2 O2 Flow FiO2 Mean Ox Delivery Rate 12/16 0757 95 Nasal 4.0L Cannula 12/16 0540 97.9 65 18 110/66 96 Nasal 4.0L Cannula 12/16 0000 Nasal 4.0L Cannula 12/15 2229 98.2 12/15 2200 99.1 88 18 104/68 92 Nasal 4.0L Cannula 12/15 2130 99.1 12/15 1554 91 Nasal 4.0L Cannula 12/15 1433 98.9 80 20 104/80 93 Intake & Output 12/16 1600 12/16 0800 12/16 0000 Intake Total 600 Output Total Balance 600 Intake, Oral 600 Physical Exam General Appearance: Alert, Oriented X3, Cooperative, No Acute Distress Skin: No Rashes, No Breakdown, No Significant Lesion Skin Temp/Moisture Exam: Warm/Dry HEENT: Atraumatic, PERRLA, EOMI, Mucous Membr. 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 She is on home dose of prednisone 40 mg. She is one of Dr. Verdugo patient's.She presented to the ED for worsening shortness of breath, pleuritic chest pain, peresistant cough.She was desaturated on room air, tachycardic She was treated with IV Solu-Medrol, nonreproducible mask 100% oxygen and nebulizer. Vital signs on admission heart rate 100, blood pressure stable, no fever O2 saturation more than 92% on 40% ventimask. Labs: WBC 13.1, hemoglobin 13.9, hematocrit 43.4, platelets 357, RDW 15.8, neutrophils 61%, eosinophils 9.3% ,BMP, LFT unremarkable ,ABG 7.36/46/88/25 on 45% venture mask CXR: 1. Small focus of hazy opacification within the right lung base which could correspond to atelectasis or developing infiltrate. 2. Recommendation is for a followup chest series to be obtained following treatment and/or resolution of symptoms to assure resolution of this appearance. CT chest without contast: Again seen are patchy foci of groundglass attenuation throughout both lungs with adjacent interstitial thickening, consistent with a crazy paving pattern. The involvement of the lung bases appears improved as compared to the prior study, though as does the calcification in the right middle lobe and left upper lobe appears more pronounced. Opacities in the right upper lobe are different than prior, though in a similar distribution and not significantly changed in extent. # acute hypoxic respiratory failure: Worsened, pulse ox is 95 on 3 L today Secondary to asthma exacerbation versus persistent cryptogenic organizing pneumonia with the superadded bacterial pneumonia DC ceftazidime and vancomycin as per dr Verdugo ( low possibility of infection) Continue Bactrim DS once a day for PCP prophylaxis as PER Dr. Verdugo recommendation (day 2) Continue Prednisone taper 60mg PO started ON 12/15 Continuous pulse oximetry monitoring Negative urine for strep and Legionella Blood cultures no growth in day 1 tube TRC, nebulizer, oxygen Continue to monitor in telemetry #TMJ disease: Continue her home doses of pain meds #Depression: The patient has history of depression Continue home meds paroxetine by mouth Full code DVT prophylaxis: Lovenox Regular Problem List: 1. Acute and chronic respiratory failure with hypoxia 2. Asthma with acute exacerbation in adult Pain Ratin Pain Location: N/A Pain Goal: Remain pain free Pain Plan: TylenoL Tomorrow's Labs & Rationales: CC BEP DVT/Prophylaxis: pharmacological
--- NOTE | 2016-12-16 09:32 | PN- Pulmonary ---
Subjective HPI/Critical Care Issues: pt seen and examined 4LNC saturating 95%, will reduce fio2 started on bactrim somewhat improving Objective Current Medications: Current Medications Sig/Nathan Start time Last Medication Dose Route Stop Time Status Admin Acetaminophen 650 MG .STK-MED ONE 12/15 2128 DC PO 12/15 2129 Acetaminophen 650 MG Q6P PRN 12/13 0230 AC 12/15 PO 2130 Albuterol Sulfate 3 ML EVERY 4 HRS/AWAKE 12/13 1200 AC 12/16 INH 0755 Budesonide/ 2 PUF BID 12/13 1000 AC 12/16 Formoterol Fumarate INH 09 Enoxaparin Sodium 40 MG DAILY 12/13 1000 AC 12/16 SC 0912 Loratadine 10 MG 2200 12/13 2200 AC 12/15 PO 2129 Montelukast Sodium 10 MG QPM 12/13 2200 AC 12/15 PO 2129 Omeprazole 20 MG DAILY AC 12/13 0700 AC 12/16 PO 0637 Ondansetron HCl 4 MG ONCE ONE 12/15 1914 DC 12/15 IV 12/15 Oxycodone HCl 30 MG .STK-MED ONE 12/16 0018 DC PO 12/16 0019 Oxycodone HCl 30 MG .STK-MED ONE 12/16 1999 DC PO 12/15 2000 Oxycodone HCl 30 MG .STK-MED ONE 12/15 1436 DC PO 12/15 1437 Oxycodone HCl 30 MG Q4P PRN 12/13 0145 AC 12/16 PO 0735 Paroxetine HCl 60 MG DAILY 12/13 1000 AC 12/16 PO 0912 Prednisone 60 MG DAILY 12/15 1000 AC 12/16 PO 0913 Tiotropium [place] 1 PUF DAILY 12/13 1000 AC 12/16 INH 0912 Trazodone HCl 150 MG QPM 12/13 2200 AC 12/15 PO 2129 Trimethoprim/ 1 TAB DAILY 12/16 1000 AC 12/16 Sulfamethoxazole PO 09 Trimethoprim/ 1 TAB BID 12/15 1213 DC 12/15 Sulfamethoxazole PO 12/15 Vital Signs & I&O Last 24 Hrs of Vitals and I&O: Vital Signs Date Time Temp Pulse Resp B/P B/P Pulse O2 O2 Flow FiO2 Mean Ox Delivery Rate 12/16 0757 95 Nasal 4.0L Cannula 12/16 0540 97.9 65 18 110/66 96 Nasal 4.0L Cannula 12/16 0000 Nasal 4.0L Cannula 12/15 2229 98.2 12/15 2200 99.1 88 18 104/68 92 Nasal 4.0L Cannula 12/15 2130 99.1 12/15 1554 91 Nasal 4.0L Cannula 12/15 1433 98.9 80 20 104/80 93 Intake & Output 12/16 1600 12/16 0800 12/16 0000 Intake Total 600 Output Total Balance 600 Intake, Oral 600 Exam Other Physical Findings: gen awake and alert heent ncat cvs s1, s2 lungs end expiratory wheezing abd bs+, elevated bmi ext without edema Results Last 24 Hrs of Lab Results: Laboratory Tests 12/16/16 0728: Anion Gap 11, Estimated GFR > 60, BUN/Creatinine Ratio 18.6, Lactic Acid 1.8, CBC w Diff NO MAN DIFF REQ, RBC 4.58, MCV 82.0, MCH 26.4 L, RDW 16.8 H, MPV 9.0, Gran % 82.7 H, Lymphocytes % 11.9 L, Monocytes % 5.1, Eosinophils % 0.1, Basophils % 0.2, Absolute Granulocytes 12.1 H, Absolute Lymphocytes 1.8, Absolute Monocytes 0.7 H, Absolute Eosinophils 0, Absolute Basophils 0, PUBS MCHC 32.2 L Impression/Plan Impression/Plan Impression/Plan: Impression 36 year old woman * acute exacerbation of asthma likely from second hand tobacco exposure * presumed crytptogenic organizing pneumonia * hypoxemic respiratory failure due to above * anxiety * elevated bmi * eosinophilia resolved Plan -trc/nebs -cont symbicort, spiriva -singulair and claritin -IgE is 152 from 442 and eosinophilia resolved -prednisone taper as ordered -bactrim for PCP prophylaxis given high steroids -monitor pulse oximetry - goal >92% -requires nocturnal oxygen (arranged at home) -patient can benefit from a lung biopsy, I discussed with patient, based on her present clinical course will make that determination, she remains reluctant -no obvious infection and would consider monitoring off antibiotics DVT prophylaxis at all times DC planning
--- NOTE | 2016-12-16 11:43 | PN- Student ---
JANY WALKER 12/16/16 1105: Subjective Subjective: Patient is a 36 year old female with a notable past medical history of cryptogenic organizing pneumonia (no validating biospy), asthma, fibromyalgia, TMJ disorder, reversible terminal airway disease who was treated for pneumonia in October 2016, is assessed today due to her recent asthma exacerbation. Patient reports increased diaphoresis over the last two nights. There does not appear to be any specific trigger or pattern to these periods of profuse sweating, but she does report a fever of "around 99.5" last night. Patient reports that she does not normally become febrile when she is ill. She also reports that she is still having interscapular pain upon deep inspiration that she reports is moderate in nature. Patient reports that this pain is very similar to the pain she has felt when diagnosed with pneumonia. She is currently on 3 L nasal cannula, a decrease from 4 L she was on yesterday. She is still reporting episodes of shortness of breath and coughing that occurs more in the evening. Patient denies chest pain, palpitations, abdominal pain, headache, dizziness and other musculoskeletal pain. Objective Objective: Laboratory Tests 12/17 727 Chemistry Sodium (137 - 145 mmol/L) 139 Potassium (3.5 - 5.1 mmol/L) 4.5 Chloride (98 - 107 mmol/L) 101 Carbon Dioxide (22 - 30 mmol/L) 28 Anion Gap (5 - 16) 11 BUN (7 - 17 mg/dL) 13 Creatinine (0.5 - 1.0 mg/dL) 0.7 Estimated GFR (>60 ml/min) > 60 BUN/Creatinine Ratio (7 - 25 %) 18.6 Lactic Acid (0.7 - 2.1 mmol/L) 1.8 Hematology CBC w Diff NO MAN DIFF REQ WBC (4.8 - 10.8 /CUMM) 14.7 H RBC (4.20 - 5.40 /CUMM) 4.58 Hgb (12.0 - 16.0 G/DL) 12.1 Hct (37 - 47 %) 37.6 MCV (81.0 - 99.0 FL) 82.0 MCH (27.0 - 31.0 PG) 26.4 L RDW (11.5 - 14.5 %) 16.8 H Plt Count (130 - 400 /CUMM) 295 MPV (7.4 - 10.4 FL) 9.0 Gran % (42.2 - 75.2 %) 82.7 H Lymphocytes % (20.5 - 51.1 %) 11.9 L Monocytes % (1.7 - 9.3 %) 5.1 Eosinophils % (0 - 5 %) 0.1 Basophils % (0.0 - 2.0 %) 0.2 Absolute Granulocytes (1.4 - 6.5 /CUMM) 12.1 H Absolute Lymphocytes (1.2 - 3.4 /CUMM) 1.8 Absolute Monocytes (0.10 - 0.60 /CUMM) 0.7 H Absolute Eosinophils (0.0 - 0.7 /CUMM) 0 Absolute Basophils (0.0 - 0.2 /CUMM) 0 PUBS MCHC (33.0 - 37.0 G/DL) 32.2 L Vital Signs Date Time Temp Pulse Resp B/P B/P Pulse O2 O2 Flow FiO2 Mean Ox Delivery Rate 12/16 0757 95 Nasal 4.0L Cannula 12/16 0540 97.9 65 18 110/66 96 Nasal 4.0L Cannula 12/16 0000 Nasal 4.0L Cannula 12/15 2229 98.2 12/15 2200 99.1 88 18 104/68 92 Nasal 4.0L Cannula 12/15 2130 99.1 12/15 1554 91 Nasal 4.0L Cannula 12/15 1433 98.9 80 20 104/80 93 Physical Exam: General: Patient is alert and oriented x3. Patient is apporpriately dressed and is sitting up in bed with a nasal cannula. HEENT: Normocephalic and atraumatic. Neck: No apparent JVD. Patient freely turns her head without pain. Cardiovasular: S1 and S2 heard. No thrills palpated. No rubs, murmurs or gallops heard in all precordial areas. Regular rate and rhythm. Pulse is strong and rhythmic bilaterally. Respiratory: Wheeze heard in all lung vargas bilaterally at the end of expiration. Abdomen: Soft and nontender to palpation. Normal bowel sounds upon ausculation. Skin: No apparent rashes or lesions observed. Assessment/Plan Assessment: #Acute hypoxia Patient should remain on 3 L O2 per nasal cannula with continuous pulse ox monitoring. Continue Bactrim DS, day 2, for PCP prophylaxis. Prednisone taper started on 12/15 is still in effect. D/C vancomycin and ceftazidime due to low likelihood of infection. WBC count decresed over the last 24 hours from 16.2 to 14.7. Continue home medications for TMJ disease and depression. JOSE ALFREDO PATRICK MD 12/19/16 5880: Attending MD Review Statement Attending Sign Off Attending Cosign Statement: I have: examined this patient, agreed w/resident/PA/SYNTHETIC GEM PRESS OPERATOR. Other Findings: Agree with above.
[2016-12-16 16:09] VITALS: BP 100/70
[2016-12-16 22:00] VITALS: BP 112/74
--- NOTE | 2016-12-17 07:17 | PN- Housestaff ---
JANETH CHAPARRO,NOVA 12/17/16 0717: Subjective Follow-up For: -Acute hypoxic respiratory failure secondary to asthma exacerbation -Cryptogenic organizing pneumonia with suspected superadded bacterial pneumonia -Chronic pain at left jaw -Depression Complaints: SOB NIGHT SWEAT chest pain Tele-Events Since Last Visit: i have personally examined the patient at bed side, she was sittinig comfortable in bed , reports having SOB and night sweats Review of Systems Constitutional: Reports: diaphoresis, weakness. EENTM: Denies: no symptoms. Cardiovascular: Denies: no symptoms. Respiratory: Reports: short of breath, sputum production, wheezing. Gastrointestinal: Denies: no symptoms. Skin: Denies: no symptoms. Objective Last 24 Hrs of Vital Signs/I&O Vital Signs Date Time Temp Pulse Resp B/P B/P Pulse O2 O2 Flow FiO2 Mean Ox Delivery Rate 12/17 0728 98.4 77 18 108/70 96 Nasal 3.0L Cannula 12/17 0721 94 Nasal 3.0L Cannula 12/17 0000 Nasal 3.0L Cannula 12/16 2200 98.6 75 18 112/74 93 Nasal 3.0L Cannula 12/16 1609 98.4 81 20 100/70 92 Nasal 3.0L Cannula 12/16 1600 93 Nasal 3.0L Cannula 12/16 1550 94 Nasal 3.0L Cannula Intake & Output 12/17 1600 12/17 0800 12/17 0000 Intake Total 600 Output Total Balance 600 Intake, IV 0 Intake, Oral 600 Number 0 Bowel Movements Physical Exam General Appearance: Alert, Oriented X3, Cooperative, No Acute Distress Skin: No Rashes, No Breakdown, No Significant Lesion Skin Temp/Moisture Exam: Warm/Dry HEENT: Atraumatic, PERRLA, EOMI, Mucous Membr. 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 She is on home dose of prednisone 40 mg. She is one of Dr. Verdugo patient's.She presented to the ED for worsening shortness of breath, pleuritic chest pain, peresistant cough.She was desaturated on room air, tachycardic She was treated with IV Solu-Medrol, nonreproducible mask 100% oxygen and nebulizer. Vital signs on admission heart rate 100, blood pressure stable, no fever O2 saturation more than 92% on 40% ventimask. Labs on admission: WBC 13.1, hemoglobin 13.9, hematocrit 43.4, platelets 357, RDW 15.8, neutrophils 61%, eosinophils 9.3% ,BMP, LFT unremarkable ,ABG 7.36/46/ 88/25 on 45% venture mask CXR: 1. Small focus of hazy opacification within the right lung base which could correspond to atelectasis or developing infiltrate. 2. Recommendation is for a followup chest series to be obtained following treatment and/or resolution of symptoms to assure resolution of this appearance. CT chest without contast: Again seen are patchy foci of groundglass attenuation throughout both lungs with adjacent interstitial thickening, consistent with a hrazy paving pattern. The involvement of the lung bases appears improved as compared to the prior study, though as does the calcification in the right middle lobe and left upper lobe appears more pronounced. Opacities in the right upper lobe are different than prior, though in a similar distribution and not significantly changed in extent. # acute hypoxic respiratory failure: improved, pulse ox is 96 on 3 L today likely Secondary to asthma exacerbation versus persistent cryptogenic organizing pneumonia We'll continue to monitor her off antibiotics ( low possibility of infection) Continue Bactrim DS once a day for PCP prophylaxis as PER Dr. Verdugo recommendation (day 3) ID consult appreciated Continue Prednisone taper 60mg PO started ON 12/15 Continuous pulse oximetry monitoring Negative urine for strep and Legionella Blood cultures no growth in day 1 tube TRC, nebulizer, oxygen Continue to monitor in telemetry #TMJ disease: Continue her home doses of pain meds #Depression: The patient has history of depression Continue home meds paroxetine by mouth Full code DVT prophylaxis: Lovenox Regular Problem List: 1. Acute and chronic respiratory failure with hypoxia 2. Asthma with acute exacerbation in adult 3. Cryptogenic organizing pneumonia Pain Ratin Pain Location: jaw Pain Goal: Pain 4 or less Pain Plan: Tylenol Oxycodone Tomorrow's Labs & Rationales: n/a DVT/Prophylaxis: mechanical, pharmacological JOSE ALFREDO PATRICK MD 12/17/16 2143: Attending MD Review Statement Attending Statement Attending MD Statement: examined this patient, discuss w/resident/PA/UTILITY AIRCREWMAN, agreed w/resident/PA/UTILITY AIRCREWMAN, reviewed EMR data (avail), discussed with nursing, discussed with case mgmt, amended to note Attending Assessment/Plan: The patient was seen and discussed with house staff. Agree with the plan of care as outlined. Slow improvement with decreased wheezing today. Appreciate pulmonary follow-up. Patient to have lung biopsy as outpatient when stable.
[2016-12-17 07:28] VITALS: BP 108/70
[2016-12-17 08:30] LABS: ABSOLUTE BASOPHIL COUNT 0 /CUMM (0.0-0.2); ABSOLUTE EOSINOPHIL COUNT 0 /CUMM (0.0-0.7); ABSOLUTE GRANULOCYTE CT 12.5 /CUMM (1.4-6.5); ABSOLUTE LYMPH COUNT 2.6 /CUMM (1.2-3.4); ABSOLUTE MONOCYTE COUNT 0.8 /CUMM (0.10-0.60); BASOPHIL % 0.2 % (0.0-2.0); EOSINOPHIL % 0.3 % (0-5); GRANULOCYTE % 77.9 % (42.2-75.2); MEAN PLATELET VOLUME 8.6 FL (7.4-10.4); PLATELET COUNT 329 /CUMM (130-400); RBC DISTRIBUTION WIDTH 16.1 % (11.5-14.5); WHITE BLOOD CELL COUNT 16.1 /CUMM (4.8-10.8)
[2016-12-17 09:20] LABS: HEMATOCRIT 41.8 % (37-47); MEAN CORPUSCULAR HGB 26.1 PG (27.0-31.0); MEAN CORPUSCULAR HGB CONC 32.3 G/DL (33.0-37.0); MEAN CORPUSCULAR VOLUME 80.9 FL (81.0-99.0); RED BLOOD CELL CT 5.17 /CUMM (4.20-5.40)
--- NOTE | 2016-12-17 11:09 | PN- Pulmonary ---
Subjective HPI/Critical Care Issues: pt seen and examined feeling better slightly has not been out of bed Objective Current Medications: Current Medications Sig/Nathan Start time Last Medication Dose Route Stop Time Status Admin Acetaminophen 650 MG Q6P PRN 12/13 0230 AC 12/15 PO 2130 Albuterol Sulfate 3 ML EVERY 4 HRS/AWAKE 12/13 1200 AC 12/17 INH 0718 Budesonide/ 2 PUF BID 12/13 1000 AC 12/17 Formoterol Fumarate INH 0913 Enoxaparin Sodium 40 MG DAILY 12/13 1000 AC 12/17 SC 0911 Guaifenesin 600 MG Q12 12/17 1000 AC PO Loratadine 10 MG 2200 12/13 2200 AC 12/16 PO 2240 Montelukast Sodium 10 MG QPM 12/13 2200 AC 12/16 PO 2240 Omeprazole 20 MG DAILY AC 12/13 0700 AC 12/17 PO 0636 Oxycodone HCl 30 MG .STK-MED ONE 12/16 1117 DC PO 12/16 1118 Oxycodone HCl 30 MG Q4P PRN 12/13 0145 AC 12/17 PO 0452 Paroxetine HCl 60 MG DAILY 12/13 1000 AC 12/17 PO 0912 Prednisone 60 MG DAILY 12/15 1000 AC 12/17 PO 0912 Tiotropium [place] 1 PUF DAILY 12/13 1000 AC 12/17 INH 0913 Trazodone HCl 150 MG QPM 12/13 2200 AC 12/16 PO 2240 Trimethoprim/ 1 TAB DAILY 12/16 1000 AC 12/17 Sulfamethoxazole PO 0912 Vital Signs & I&O Last 24 Hrs of Vitals and I&O: Vital Signs Date Time Temp Pulse Resp B/P B/P Pulse O2 O2 Flow FiO2 Mean Ox Delivery Rate 12/18 727 98.4 77 18 108/70 96 Nasal 3.0L Cannula 12/17 0721 94 Nasal 3.0L Cannula 12/17 0000 Nasal 3.0L Cannula 12/16 2199 98.6 75 18 112/74 93 Nasal 3.0L Cannula 12/16 1609 98.4 81 20 100/70 92 Nasal 3.0L Cannula 12/16 1600 93 Nasal 3.0L Cannula 12/16 1550 94 Nasal 3.0L Cannula Intake & Output 12/17 1600 12/17 0800 12/17 0000 Intake Total 600 Output Total Balance 600 Intake, IV 0 Intake, Oral 600 Number 0 Bowel Movements Exam Other Physical Findings: gen awake and alert heent ncat cvs s1, s2 lungs end expiratory wheezing improved abd bs+, elevated bmi ext without edema Results Last 24 Hrs of Lab Results: Laboratory Tests 12/17/16 0755: CBC w Diff NO MAN DIFF REQ, RBC 5.17, MCV 80.9 L, MCH 26.1 L, RDW 16.1 H, MPV 8.6, Gran % 77.9 H, Lymphocytes % 16.4 L, Monocytes % 5.2, Eosinophils % 0.3, Basophils % 0.2, Absolute Granulocytes 12.5 H, Absolute Lymphocytes 2.6, Absolute Monocytes 0.8 H, Absolute Eosinophils 0, Absolute Basophils 0, PUBS MCHC 32.3 L Impression/Plan Impression/Plan Impression/Plan: Impression 36 year old woman * acute exacerbation of asthma likely from second hand tobacco exposure * presumed crytptogenic organizing pneumonia * hypoxemic respiratory failure due to above * anxiety * elevated bmi * eosinophilia resolved Plan -trc/nebs -cont symbicort, spiriva -singulair and claritin -IgE is 152 from 442 and eosinophilia resolved -prednisone taper as ordered -bactrim for PCP prophylaxis given high steroids -monitor pulse oximetry - goal >92% -requires nocturnal oxygen (arranged at home) -patient can benefit from a lung biopsy, I discussed with patient, based on her present clinical course will make that determination, she remains reluctant -no obvious infection and would consider monitoring off antibiotics DVT prophylaxis at all times DC planning review o2 requirements
[2016-12-17] MEDS ORDERED: PREDNISONE50 M1 PO (14:22)
[2016-12-17] MEDS ORDERED: PREDNISONE20 M1 PO (14:22)
--- NOTE | 2016-12-17 14:31 | PN- Student ---
JANY WALKER 12/17/16 1344: Subjective Subjective: Patient is a 36 year old female with a notable past medical history of cryptogenic organizing pneumonia (no validating biospy), asthma, fibromyalgia, TMJ disorder, reversible terminal airway disease who was treated for pneumonia in October 2016, is assessed today due to her recent asthma exacerbation. Patient continues to report increased diaphoresis at night, but reports that her wheezing is improving. She also reports that last night her jaw "locked up" due to her TMJ disorder and that she had intense left sided dental pain because of it. Patient continues to report similar intrascapular back pain upon inspiration, but reports no other issues. She reports having a bowel movement yesterday and she is having no problems ambulating. Patient is still on 3 L O2 via nasal cannula. Upon questioning, patient denies recent sick contacts of individuals with TB and reports that she can no longer have the tuberculin skin test due to continuous positive tests. She adds that when she is assessed for TB she is required to have a chest X-Ray, that has yielded negative results. Auto Camp Attendant was present for a conversation between supervising advisory internship and patient regarding the potential of a lung biopsy, where patient expressed concern due to possible sternotomy. Current Medications Sig/Nathan Start time Last Medication Dose Route Stop Time Status Admin Acetaminophen 650 MG Q6P PRN 12/13 0230 AC 12/15 PO 2130 Albuterol Sulfate 3 ML EVERY 4 HRS/AWAKE 12/13 1200 AC 12/17 INH 1123 Budesonide/ 2 PUF BID 12/13 1000 AC 12/17 Formoterol Fumarate INH 0913 Enoxaparin Sodium 40 MG DAILY 12/13 1000 AC 12/17 SC 0911 Guaifenesin 600 MG Q12 12/17 1000 AC 12/17 PO 1320 Loratadine 10 MG 2200 12/13 2200 AC 12/16 PO 2240 Montelukast Sodium 10 MG QPM 12/13 2200 AC 12/16 PO 2240 Omeprazole 20 MG DAILY AC 12/13 0700 AC 12/17 PO 0636 Oxycodone HCl 30 MG Q4P PRN 12/13 0145 AC 12/17 PO 1321 Paroxetine HCl 60 MG DAILY 12/13 1000 AC 12/17 PO 0912 Prednisone 60 MG DAILY 12/15 1000 AC 12/17 PO 0912 Tiotropium [place] 1 PUF DAILY 12/13 1000 AC 12/17 INH 0913 Trazodone HCl 150 MG QPM 12/13 2200 AC 12/16 PO 2240 Trimethoprim/ 1 TAB DAILY 12/16 1000 AC 12/17 Sulfamethoxazole PO 0912 Objective Objective: Physical Exam: General: Patient is laying in bed, appropriate dress and hygiene, oriented x3. HEENT: Normocephalic and atraumatic. EOMI. Neck: Flexible without any tenderness upon motion and palpation. No JVD observed. Cardiovascular: S1 and S2 heard and are of normal rate and rhythm. No thrills palpated. No rubs, murmurs or gallops heard in all precordial areas. Radial pulses are strong and rhythmic. Respiratory: Expiratory wheeze is heard in all lung vargas, but is of less severity than assessment done yesterday. Patient is still on 3L of O2 via nasal cannula. Abdomen: Soft and nontender to palpation. Normal bowel sounds are heard in all four quadrants. Skin: No apparent lesions or rashes observed. Laboratory Tests 12/17 0755 Hematology CBC w Diff NO MAN DIFF REQ WBC (4.8 - 10.8 /CUMM) 16.1 H RBC (4.20 - 5.40 /CUMM) 5.17 Hgb (12.0 - 16.0 G/DL) 13.5 Hct (37 - 47 %) 41.8 MCV (81.0 - 99.0 FL) 80.9 L MCH (27.0 - 31.0 PG) 26.1 L RDW (11.5 - 14.5 %) 16.1 H Plt Count (130 - 400 /CUMM) 329 MPV (7.4 - 10.4 FL) 8.6 Gran % (42.2 - 75.2 %) 77.9 H Lymphocytes % (20.5 - 51.1 %) 16.4 L Monocytes % (1.7 - 9.3 %) 5.2 Eosinophils % (0 - 5 %) 0.3 Basophils % (0.0 - 2.0 %) 0.2 Absolute Granulocytes (1.4 - 6.5 /CUMM) 12.5 H Absolute Lymphocytes (1.2 - 3.4 /CUMM) 2.6 Absolute Monocytes (0.10 - 0.60 /CUMM) 0.8 H Absolute Eosinophils (0.0 - 0.7 /CUMM) 0 Absolute Basophils (0.0 - 0.2 /CUMM) 0 PUBS MCHC (33.0 - 37.0 G/DL) 32.3 L Vital Signs Date Time Temp Pulse Resp B/P B/P Pulse O2 O2 Flow FiO2 Mean Ox Delivery Rate 12/17 1354 95 Nasal 2.0L Cannula 12/17 0728 98.4 77 18 108/70 96 Nasal 3.0L Cannula 12/17 0721 94 Nasal 3.0L Cannula 12/17 0000 Nasal 3.0L Cannula 12/16 2200 98.6 75 18 112/74 93 Nasal 3.0L Cannula 12/16 1609 98.4 81 20 100/70 92 Nasal 3.0L Cannula 12/16 1600 93 Nasal 3.0L Cannula 12/16 1550 94 Nasal 3.0L Cannula Intake & Output 12/17 1600 12/17 0800 12/17 0000 Intake Total 600 Output Total Balance 600 Intake, IV 0 Intake, Oral 600 Number 0 Bowel Movements Assessment/Plan Assessment: #Acute hypoxia Patient should remain on 3 L O2 per nasal cannula with continuous pulse ox monitoring. Continue Bactrim DS, day 3, for PCP prophylaxis. Prednisone taper started on 12/15 is still in effect. Consult pulmonolgy in regards to potential biopsy options and in order to have a conversation about these possibilites with patient. #Tuberculosis R/O Initially considered due to continued night sweating and duration of symptoms although atypical of TB. Due to lack of sick contacts, and imaging studies/history inconsistencies, TB has been ruled out. #Continue home medications for TMJ disease and depression. JOSE ALFREDO PATRICK MD 12/19/16 9920: Attending MD Review Statement Attending Sign Off Attending Cosign Statement: I have: examined this patient, agreed w/resident/PA/CLOTH DOFFER. Other Findings: Agree with above.
[2016-12-17 14:50] VITALS: BP 120/80
--- NOTE | 2016-12-17 19:00 | NUR ---
PT ARRIVED TO FLOOR FROM 1NA. VSS. PT C/O SEVERE, CHRONIC JAW PAIN. WILL MEDICATE PER EMAR. PT ON 2L NC AT 92%. PT ORIENTED TO ROOM AND EDUCATED REPAIR SPECIALIST JI.
[2016-12-17 19:11] VITALS: BP 106/66
[2016-12-17 21:57] VITALS: BP 124/80
[2016-12-18 06:00] VITALS: BP 118/66
--- NOTE | 2016-12-18 10:35 | PN- Pulmonary ---
Subjective HPI/Critical Care Issues: Patient seen and examined this morning. She is on room air and feeling somewhat better. Her wheezing has clearly decreased. She is afebrile and at this being discharged later today. Objective Current Medications: Current Medications Sig/Nathan Start time Last Medication Dose Route Stop Time Status Admin Acetaminophen 650 MG Q6P PRN 12/13 0230 AC 12/15 PO 2130 Albuterol Sulfate 3 ML EVERY 4 HRS/AWAKE 12/13 1200 AC 12/18 INH 0759 Budesonide/ 2 PUF BID 12/13 1000 AC 12/18 Formoterol Fumarate INH 0926 Enoxaparin Sodium 40 MG DAILY 12/13 1000 AC 12/18 SC 0926 Guaifenesin 600 MG Q12 12/17 1000 AC 12/18 PO 0926 Loratadine 10 MG 2200 12/13 2200 AC 12/17 PO 2148 Montelukast Sodium 10 MG QPM 12/13 2200 AC 12/17 PO 2148 Omeprazole 20 MG DAILY AC 12/13 0700 AC 12/18 PO 0630 Oxycodone HCl 30 MG .STK-MED ONE 12/17 1320 DC PO 12/17 1321 Oxycodone HCl 30 MG Q4P PRN 12/13 0145 AC 12/18 PO 0700 Paroxetine HCl 60 MG DAILY 12/13 1000 AC 12/18 PO 0926 Prednisone 60 MG DAILY 12/15 1000 AC 12/18 PO 0926 Tiotropium [place] 1 PUF DAILY 12/13 1000 AC 12/18 INH 0926 Trazodone HCl 150 MG QPM 12/13 2200 AC 12/17 PO 2148 Trimethoprim/ 1 TAB DAILY 12/16 1000 AC 12/18 Sulfamethoxazole PO 0926 Vital Signs & I&O Last 24 Hrs of Vitals and I&O: Vital Signs Date Time Temp Pulse Resp B/P B/P Pulse O2 O2 Flow FiO2 Mean Ox Delivery Rate 12/18 0802 97 Nasal 1.5L Cannula 12/18 08 97 Nasal 2.0L Cannula 12/18 06 98.0 63 20 118/66 93 Nasal Cannula 12/177 98.1 90 20 124/80 94 12/17 1911 98.2 90 20 106/66 92 Nasal 2.0L Cannula 12/17 1610 94 Room Air 2.0L 12/17 1450 98.6 80 18 120/80 93 Nasal 2.0L Cannula 12/17 1354 95 Nasal 2.0L Cannula Intake & Output 12/18 1600 12/18 0800 12/18 0000 Intake Total 80 Output Total Balance 80 Intake, Oral 80 Exam Other Physical Findings: She is awake and alert. Her wheezing has decreased. Her abdomen is soft. There is no edema. Cardiac exam is normal. Impression/Plan Impression/Plan Impression/Plan: Impression 36 year old woman * improved acute exacerbation of asthma likely from second hand tobacco exposure * presumed crytptogenic organizing pneumonia * hypoxemic respiratory failure due to above Plan -trc/nebs -cont symbicort, spiriva -singulair and claritin -IgE is 152 from 442 and eosinophilia resolved -prednisone taper as ordered, remain on 40mg prednisone without taper until seen in office -bactrim for PCP prophylaxis given high steroids -monitor pulse oximetry - goal >92% -requires nocturnal oxygen (arranged at home) -patient can benefit from a lung biopsy, I discussed with patient, based on her present clinical course will make that determination, she remains reluctant -no obvious infection and would consider monitoring off antibiotics DVT prophylaxis at all times DC planning review o2 requirements
--- NOTE | 2016-12-18 11:10 | PN- Housestaff ---
Subjective Follow-up For: -Acute hypoxic respiratory failure secondary to asthma exacerbation -Cryptogenic organizing pneumonia -Chronic pain at left jaw -Depression Subjective: I have personally seen and examined the patient this morning. Reports improvement in her breathing. Still complains of pain in her jaw. Denies any fever, chills, worsening shortness of breath, chest pain or overnight events. Review of Systems Constitutional: Reports: no symptoms. EENTM: Reports: no symptoms. Cardiovascular: Reports: no symptoms. Respiratory: Reports: cough, sputum production. Gastrointestinal: Reports: no symptoms. Genitourinary: Reports: no symptoms. Musculoskeletal: Reports: no symptoms. Skin: Reports: no symptoms. Neurological/Psychological: Reports: no symptoms. Hematologic/Endocrine: Reports: no symptoms. Immunologic/Allergic: Reports: no symptoms. Objective Last 24 Hrs of Vital Signs/I&O Vital Signs Date Time Temp Pulse Resp B/P B/P Pulse O2 O2 Flow FiO2 Mean Ox Delivery Rate 12/18 1300 91 Room Air Room Air 12/18 0802 97 Nasal 1.5L Cannula 12/18 0800 97 Nasal 2.0L Cannula 12/18 0600 98.0 63 20 118/66 93 Nasal Cannula 12/18 0000 94 Nasal 2.0L Cannula 12/17 2157 98.1 90 20 124/80 94 12/17 1911 98.2 90 20 106/66 92 Nasal 2.0L Cannula 12/17 1610 94 Room Air 2.0L 12/17 1450 98.6 80 18 120/80 93 Nasal 2.0L Cannula Intake & Output 12/18 1600 12/18 0800 12/18 0000 Intake Total 480 100 80 Output Total Balance 480 100 80 Intake, IV 0 Intake, Oral 480 100 80 Number 0 Bowel Movements Patient 165 lb Weight Physical Exam General Appearance: Alert, Oriented X3, Cooperative Other Physical Findings: Skin: No Rashes, No Breakdown, No Significant Lesion Skin Temp/Moisture Exam: Warm/Dry HEENT: Atraumatic, PERRLA, EOMI, Mucous Membr. moist/pink Neck: Supple, No JVD Cardiovascular: Regular Rate, Normal S1, Normal S2, No Murmurs Lungs: Mild wheezing most noticeable in lung apices Abdomen: Normal Bowel Sounds, Soft, No Tenderness Neurological: Normal Gait, Normal Speech, Strength at 5/5 X4 Ext, Normal Tone Extremities: No Clubbing, No Cyanosis, No Edema Current Medications: Current Medications Sig/Nathan Start time Last Medication Dose Route Stop Time Status Admin Acetaminophen 650 MG Q6P PRN 12/13 0230 AC 12/15 PO 2130 Albuterol Sulfate 3 ML EVERY 4 HRS/AWAKE 12/13 1200 AC 12/18 INH 0759 Budesonide/ 2 PUF BID 12/13 1000 AC 12/18 Formoterol Fumarate INH 0926 Enoxaparin Sodium 40 MG DAILY 12/13 1000 AC 12/18 SC 0926 Guaifenesin 600 MG Q12 12/17 1000 AC 12/18 PO 0926 Loratadine 10 MG 2200 12/13 2200 AC 12/17 PO 2148 Montelukast Sodium 10 MG QPM 12/13 2200 AC 12/17 PO 2148 Omeprazole 20 MG DAILY AC 12/13 0700 AC 12/18 PO 0630 Oxycodone HCl 30 MG Q4P PRN 12/13 0145 AC 12/18 PO 1117 Paroxetine HCl 60 MG DAILY 12/13 1000 AC 12/18 PO 0926 Prednisone 60 MG DAILY 12/15 1000 AC 12/18 PO 0926 Tiotropium [place] 1 PUF DAILY 12/13 1000 AC 12/18 INH 0926 Trazodone HCl 150 MG QPM 12/13 220 AC 12/17 PO 2148 Trimethoprim/ 1 TAB DAILY 12/16 1000 AC 12/18 Sulfamethoxazole PO 09 Assessment/Plan Assessment: 36-year-old lady with past medical history of cryptogenic organizing pneumonia ( without any biopsy to prove the diagnosis), asthma, allergy to dust, fibromyalgia, TMJ disorder, 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 She is on home dose of prednisone 40 mg. She is one of Dr. Verdugo patient's.She presented to the ED for worsening shortness of breath, pleuritic chest pain, peresistant cough.She was desaturated on room air, tachycardic She was treated with IV Solu-Medrol, nonreproducible mask 100% oxygen and nebulizer. Vital signs on admission heart rate 100, blood pressure stable, no fever O2 saturation more than 92% on 40% ventimask. Labs on admission: WBC 13.1, hemoglobin 13.9, hematocrit 43.4, platelets 357, RDW 15.8, neutrophils 61%, eosinophils 9.3% ,BMP, LFT unremarkable ,ABG 7.36/46/ 88/25 on 45% venture mask CXR: 1. Small focus of hazy opacification within the right lung base which could correspond to atelectasis or developing infiltrate. 2. Recommendation is for a followup chest series to be obtained following treatment and/or resolution of symptoms to assure resolution of this appearance. CT chest without contast: Again seen are patchy foci of groundglass attenuation throughout both lungs with adjacent interstitial thickening, consistent with a hrazy paving pattern. The involvement of the lung bases appears improved as compared to the prior study, though as does the calcification in the right middle lobe and left upper lobe appears more pronounced. Opacities in the right upper lobe are different than prior, though in a similar distribution and not significantly changed in extent. # acute hypoxic respiratory failure: improved, pulse ox is 97 on 2 L this morning likely Secondary to asthma exacerbation versus persistent cryptogenic organizing pneumonia We'll continue to monitor her off antibiotics ( low possibility of infection) Continue Bactrim DS once a day for PCP prophylaxis as PER Dr. Verdugo recommendation (day 4) ID consult appreciated Continue Prednisone taper 60mg PO started ON 12/15, discharged on 50mg x 3days, will resume her usual dose of 40 mg after 3 days Continuous pulse oximetry monitoring Negative urine for strep and Legionella Blood cultures no growth in day 1 tube TRC, nebulizer, oxygen Continue to monitor in telemetry #TMJ disease: Continue her home doses of pain meds #Depression: The patient has history of depression Continue home meds paroxetine by mouth Full code DVT prophylaxis: Lovenox Regular Problem List: 1. Asthma exacerbation 2. Cryptogenic organizing pneumonia 3. TMJ (temporomandibular joint syndrome) 4. Depression Pain Ratin Pain Location: jaw Pain Goal: Remain pain free Pain Plan: Pain pathway Tomorrow's Labs & Rationales: None
[2016-12-18] MEDS ORDERED: PREDNISONE20 M1 PO (13:31)
[2016-12-18] MEDS ORDERED: PREDNISONE50 M1 PO (13:33)
[2016-12-18] MEDS ORDERED: SULFAMETHOXAZO1 EAC1 PO (13:38)
--- NOTE | 2016-12-18 13:51 | PN- Att Addend ---
Attending MD Review Statement Attending Statement Attending MD Statement: examined this patient, discuss w/resident/PA/CHILDREN'S MINISTER, agreed w/resident/PA/CHILDREN'S MINISTER, reviewed EMR data (avail), discussed w/nursing, discussed w/ case mgmt Attending Assessment/Plan: d/w stud master/mistress dr saldaña, he is ok with pt being dced on po steroid taper and pt will be tapered off to 40mg daily and then will f/u with pulmonary clinic for further management . d/w pt the care plan. see dc summary for more details.
== END 2016-12-18 13:54 | DRG 142 ==
LOC: DELPENDDIS → ERH 20:58 → ERHI 12-13 00:14 → 2NA 12-13 00:14 → 1NO 12-13 00:14 → ENRESERV 12-13 01:01 → 1NO 12-13 01:43 → ENPENDDIS 12-16 11:34 → 2NA 12-17 19:08 → ENPENDDIS 12-18 13:44 → 2NA 12-18 13:54
PROVIDERS: Emergency Medicine; Internal Medicine; ADMIT Internal Medicine
DX: J84.116 Cryptogenic organizing pneumonia (principal); F32.9 Major depressive disorder, single episode, unspecified; G89.29 Other chronic pain; Z87.891 Personal history of nicotine dependence; M79.7 Fibromyalgia; J30.89 Other allergic rhinitis; M26.609 Unspecified temporomandibular joint disorder, unspecified side; Z99.81 Dependence on supplemental oxygen; J96.21 Acute and chronic respiratory failure with hypoxia; J45.901 Unspecified asthma with (acute) exacerbation; F41.9 Anxiety disorder, unspecified; J15.9 Unspecified bacterial pneumonia
CPT/HCPCS: 1NP; 2NAP; 36415; 82436; 87040; 87070; 87449; 87450; 94644; 94645; 96374; 96375; 99291; J0713; J1650; J2405; J2920; J2930; J3370; J3490; J7040

== ENCOUNTER 2017-05-23 14:30 | Observation (INO) | payer OTHER, MEDICARE ==
[~2017-05-23] VITALS: Ht 157.5 cm; Wt 77.1 kg
[~2017-05-23 14:30] MED LIST changes: +AZITHROMYCIN250 M1 PO; +BACTRIM 400-801 EACH PO; +BACTRIM DS TAB1 EACH PO; +LORATADINE10 M1 PO; +OMEPRAZOLE20 M3 PO; +PREDNISONE50 M1 PO; +SULFAMETHOXAZO1 EAC1 PO
[2017-05-23] MEDS ORDERED: HYDROXYZINE HCL10 M2 PO (14:46)
--- NOTE | 2017-05-23 15:22 | RADIOLOGY REPORT ---
EXAMINATION: XR PORTABLE CHEST CLINICAL INFORMATION: Shortness breath. Hypoxia. COMPARISON: CT dated 07/28/2016 and radiograph dated 04/07/2017 TECHNIQUE: AP portable upright view of the chest FINDINGS: Chronic patchy areas of hazy opacification in the lung bases (right greater than left) are unchanged from prior. No new airspace opacification is identified. Cardiac mediastinal contours are unchanged. Pulmonary vasculature is normal. Osseous structures are unremarkable. IMPRESSION: Persistent hazy airspace opacities in the lung bases. These are not significantly changed from prior. Cryptogenic organizing pneumonia was the main possibility entertained on the prior CT.
[2017-05-23 15:28] LABS: ABSOLUTE BASOPHIL COUNT 0 /CUMM (0.0-0.2); ABSOLUTE EOSINOPHIL COUNT 1.2 /CUMM (0.0-0.7); ABSOLUTE GRANULOCYTE CT 5.8 /CUMM (1.4-6.5); ABSOLUTE LYMPH COUNT 2.8 /CUMM (1.2-3.4); ABSOLUTE MONOCYTE COUNT 0.4 /CUMM (0.10-0.60); BASOPHIL % 0.2 % (0.0-2.0); EOSINOPHIL % 11.8 % (0-5); GRANULOCYTE % 56.6 % (42.2-75.2); HEMATOCRIT 36.7 % (37-47); MEAN CORPUSCULAR HGB 25.6 PG (27.0-31.0); MEAN CORPUSCULAR HGB CONC 32.6 G/DL (33.0-37.0); MEAN CORPUSCULAR VOLUME 78.4 FL (81.0-99.0); MEAN PLATELET VOLUME 7.4 FL (7.4-10.4); PLATELET COUNT 408 /CUMM (130-400); RBC DISTRIBUTION WIDTH 17.8 % (11.5-14.5); RED BLOOD CELL CT 4.67 /CUMM (4.20-5.40); WHITE BLOOD CELL COUNT 10.2 /CUMM (4.8-10.8)
--- NOTE | 2017-05-23 16:19 | ED DYSPNEA/ASTHMA COMPLAINT ---
See Addendum History of Present Illness General Chief Complaint: Dyspnea (COPD, CHF, Other) Stated Complaint: BIBA FOR SOB,DIFF BREATHING Source: patient, old records Exam Limitations: no limitations Vital Signs & Intake/Output Vital Signs & Intake/Output Vital Signs Date Time Temp Pulse Resp B/P B/P Pulse O2 O2 Flow FiO2 Mean Ox Delivery Rate 05/23 2007 98.5 95 18 134/85 97 Room Air Room Air 05/23 1837 Nasal 2.0L Cannula 05/23 174 98.3 96 20 133/85 97 Nasal 2.0L Cannula 05/23 1437 98.3 96 22 149/87 96 Non ReBreather Allergies Coded Allergies: NO KNOWN ALLERGIES (07/30/16) Reconcile Medications Albuterol Sulfate (Proair Hfa) 90 MCG HFA.AER.AD 2 PUF INH Q4-6 PRN PRN RESPIRATORY (Reported) Budesonide/Formoterol Fumarate (Symbicort 160-4.5 Mcg Inhaler) 160 MCG-4.5 MCG/ ACTUATION HFA.AER.AD 2 PUF INH BID SOB (Reported) Hydroxyzine HCl (hydrOXYzine HCl) 10 MG TABLET 10 MG PO PRN FOR INCREASED HEART RATE (Reported) Loratadine 10 MG TABLET 10 MG PO DAILY ASTHMA . Montelukast Sodium 10 MG TABLET 10 MG PO AT BEDTIME asthma . Oxycodone HCl 30 MG TABLET 1 TAB PO Q4H PRN PAIN (Reported) Paroxetine HCl 30 MG TABLET 2 TAB PO DAILY MENTAL HEALTH (Reported) Prednisone 20 MG TABLET 2 TAB PO DAILY SHORTNESS OF BREATH . Tiotropium [place] (Spiriva) 18 MCG CAP.W.DEV 1 CAP INH DAILY ASTHMA ( Reported) Trazodone HCl 50 MG TABLET 3 TAB PO QPM SLEEP (Reported) Triage Note: ELINA FOR INCREASED SOB, LOW O2 81% AT HOME-TRIALED 4 ALBUTEROL TREATMENTS WITH MINIMAL RELIEF. WITH EMS ALBUTEROL X1, SOLUMEDROL 125 MG IV, 2G MAG IV PT C/O BACK PAIN WITH DEEP INSPIRATION Triage Nurses Notes Reviewed? yes Onset: Gradual Duration: day(s): (3-4), constant, continues in ED, getting worse Timing: recent history Severity: mild, moderate Activities at Onset: none Prior Episodes/Possible Cause: frequent episodes Modifying Factors: Worsens With: movement. Associated Symptoms: anxiety, cough, chest pain, wheezing, weakness LMP (ages 10-50): unknown : No Patient currently breastfeeds: No HPI: 36-year-old female past medical history of cryptogenic pneumonia presents for evaluation of cough, weakness, shortness of breath and wheezing. Patient states that symptoms have been gradually worsening over the past few days. She states that shortness of breath or significant only worse on exertion and improves slightly at rest. She has been seen here multiple times for this. She's been using DuoNeb times at home without any improvement. She states that her oxygen saturation was 81% at home on room air. She came in by ambulance and received 2 g of magnesium 125 of Solu-Medrol and DuoNeb times. She states she's done 5 DuoNeb's today. No fevers hemoptysis or lower extremity edema. She does report pain with deep inspiration in her back and flanks. No nausea vomiting diarrhea no fever. (Reji Walker) Past History Travel History Traveled to [place] past 21 day No Medical History Any Pertinent Medical History? 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 FH: diabetes mellitus UNCLE-MATERNAL (BOOP). GRANDMOTHER-MATERNAL (CHF). Relation not specified for: FH: CAD (coronary artery disease) FH: HTN (hypertension) FH: ovarian cancer FH: uterine cancer Hx Contributory? No (Reji Walker) Review of Systems Review of Systems Constitutional: Reports: no symptoms. EENTM: Reports: no symptoms. Respiratory: Reports: see HPI, cough, short of breath, wheezing. Cardiovascular: Reports: see HPI, chest pain. GI: Reports: no symptoms. Genitourinary: Reports: no symptoms. Musculoskeletal: Reports: no symptoms. Skin: Reports: no symptoms. Neurological/Psychological: Reports: no symptoms. Hematologic/Endocrine: Reports: no symptoms. Immunologic/Allergic: Reports: no symptoms. All Other Systems: Reviewed and Negative (Reji Walker) Physical Exam Physical Exam General Appearance: well developed/nourished, alert, awake, anxious, moderate distress, obese Head: atraumatic, normal appearance Eyes: Bilateral: normal appearance, PERRL, EOMI. Ears, Nose, Throat: normal pharynx, normal ENT inspection, hearing grossly normal Neck: normal inspection, supple, full range of motion Respiratory: rhonchi, wheezing, respiratory distress, chest wall is diffusely tender to palpation. The lateral and posterior ribs tender to palpation Cardiovascular: regular rate/rhythm, normal peripheral pulses Peripheral Pulses: 2+ radial (R), 2+ radial (L) Gastrointestinal: normal bowel sounds, soft, non-tender, no organomegaly Extremities: normal inspection, normal range of motion, no edema Neurologic/Psych: no motor/sensory deficits, awake, alert, oriented x 3, normal gait Skin: intact, normal color, warm/dry Lymphatic: no anterior cervical carol Core Measures ACS in differential dx? No CVA/TIA Diagnosis No Sepsis Present: No Sepsis Focused Exam Completed? No (Reji Walker) Progress Differential Diagnosis: asthma, bronchitis, CHF, COPD, pulmonary embolism, pneumonia, pneumothorax, cryptogenic pneumonia Plan of Care: Orders Procedure Date/time Status Regular Diet 05/24 B Active Vital Signs 05/23 2018 Active Teach/Educate 05/23 2018 Active Pain Treatment and Response 05/23 2018 Active Nutritional Intake, Monitor 05/23 2018 Active Isolation 05/23 2018 Active Intake & Output 05/23 2018 Active Patient Care Conference 05/23 2018 Active Activity/Ambulation 05/23 2018 Active RT: Evaluation 05/23 1836 Active Pathway - chart 05/23 1814 Active House Staff 05/23 1814 Active Code Status 05/[address] in observation 05/23 1729 Active Misc Message 05/23 1729 Active ED Holding Orders 05/23 1729 Active Vital Signs 05/23 1729 Active Code Status 05/23 1729 Complete ARTERIAL BLOOD GAS (GEN) 05/23 1716 Complete Patient Data 05/23 170 Active Add-on Test (ER Only) 05/23 1619 Active EKG 05/23 1619 Active Intake & Output 05/23 1525 Active TROPONIN LEVEL 05/23 1515 Complete B-TYPE NATRIURETIC PEP (BNP) 05/23 1515 Complete D-DIMER 05/23 1459 Complete COMPREHENSIVE METABOLIC PANEL 05/23 1442 Complete CBC WITHOUT DIFFERENTIAL 05/23 1442 Complete TRC EVALUATION (GEN) 05/23 UNK Complete THERAPIST ORDERS 05/23 UNK Complete VTE Mechanical Prophylaxis 05/23 UNK Active Current Medications Sig/Nathan Start time Last Medication Dose Stop Time Status Admin Budesonide/ 2 PUF BID 05/23 2200 AC Formoterol Fumarate (Symbicort) Heparin Sodium 5,000 UNIT Q8 05/23 2200 AC (Porcine) Methylprednisolone 40 MG Q8 05/23 2200 AC (Solumedrol) Oxycodone HCl 30 MG Q4 05/23 2200 AC (Roxicodone) Trazodone HCl 150 MG 0 05/23 2200 AC (Desyrel) Albuterol Sulfate 3 ML EVERY 4 HRS/AWAKE 05/23 2000 AC (Proventil) Tiotropium [place] 1 PUF DAILY 05/23 1817 AC (Spiriva) Loratadine 10 MG DAILY 05/23 1816 AC (Claritin) Loratadine 10 MG DAILY 05/23 1815 CAN (Claritin) Laboratory Tests 05/23/17 182: pH 7.42, pCO2 39, pO2 87, HCO3 25, ABG O2 Sat (Measured) 96.0, P-50 (Temp Corrected) Y, Carboxyhemoglobin 0.1 L, O2 Concentration % 2L, Temperature 97.2, O2 Delivery Method N/C, Phlebotomy Draw Site RIGHT RADIAL 05/23/17 151: Anion Gap 10, Estimated GFR > 60, BUN/Creatinine Ratio 13.8, Glucose 124 H, Calcium 9.1, Total Bilirubin 0.6, AST 19, ALT 26, Alkaline Phosphatase 97, Troponin I < 0.01, Zrq-T-Iycmerwtkyr Pept 57.9, Total Protein 6.6, Albumin 4.1, Globulin 2.5, Albumin/Globulin Ratio 1.6, D-Dimer High Sensitivty < 200, CBC w Diff NO MAN DIFF REQ, RBC 4.67, MCV 78.4 L, MCH 25.6 L, RDW 17.8 H, MPV 7.4, Gran % 56.6, Lymphocytes % 27.4, Monocytes % 4.0, Eosinophils % 11.8 H, Basophils % 0.2, Absolute Granulocytes 5.8, Absolute Lymphocytes 2.8, Absolute Monocytes 0.4, Absolute Eosinophils 1.2, Absolute Basophils 0, PUBS MCHC 32.6 L Patient seen and evaluated. She has had multiple similar episodes. She received magnesium Solu-Medrol and DuoNeb times in route. She received a DuoNeb here without any improvement. She has diffuse wheezing and rhonchi bilaterally. Patient was ambulated in the emergency department and desaturated to the 80s on room air. She's been on nasal cannula oxygen and saturating in the mid 90s while at rest. Patient becomes very short of breath with any type of exertion. Patient has a negative chest x-ray negative white blood cell count negative d- dimer negative EKG and troponin. Patient will be admitted to the hospital for IV steroids, IV antibiotics, pulmonology consult, oxygen saturation monitoring. Case discussed with Dr. Mei he agrees. Patient cleared by case management for observation. Diagnostic Imaging: Viewed by Me: Radiology Read. Discussed w/RAD: Radiology Read. CXR Impression: PATIENT: TERESA RODRIGEZ PRESENT AGE : 36 PATIENT ACCOUNT NO: [id number] : 81 LOCATION: [facility] ORDERING PHYSICIAN: Reji COSBY SERVICE DATE: 05/23/17 EXAM TYPE: RAD - XRY- PORTABLE CHEST XRAY EXAMINATION: XR PORTABLE CHEST CLINICAL INFORMATION: Shortness breath. Hypoxia. COMPARISON: CT dated 07/28/2016 and radiograph dated TECHNIQUE: AP portable upright view of the chest FINDINGS: Chronic patchy areas of hazy opacification in the lung bases (right greater than left) are unchanged from prior. No new airspace opacification is identified. Cardiac mediastinal contours are unchanged. Pulmonary vasculature is normal. Osseous structures are unremarkable. IMPRESSION: Persistent hazy airspace opacities in the lung bases. These are not significantly changed from prior. Cryptogenic organizing pneumonia was the main possibility entertained on the prior CT. DICTATED BY: Abel Garner MD DATE/TIME DICTATED:05/23/171516 TILE SPRAYER:NABOR DATE/TIME TRANSCRIBED:05/23/177 CONFIDENTIAL, DO NOT COPY WITHOUT APPROPRIATE AUTHORIZATION. Initial ED EKG: normal sinus rhythm (Reji Walker) Departure Departure Disposition: STILL A PATIENT Condition: Stable Clinical Impression Primary Impression: Hypoxia Referrals: James CHAPARRO,Socrates Mehta (PCP/Family) Departure Forms: Customer Survey General Discharge Information Observation Note Spoke With: Kaylen CHAPARRO,Sarath Physician Advisor Notified: ZEUS CHAPARRO,MINA [address] Patient In: Non-ED OBS Care Area Rationale for Observation: My rational for observation is as follows [patient is hypoxic when ambulating at room air. She received IV Solu-Medrol IV magnesium and multiple DuoNeb this without any improvement. She was ambulated in the emergency department and desaturated to 88%. She'll be admitted for observation.]. (Reji Walker) PA/MEDICAID BILLER Co-Sign Statement Statement: ED Attending supervision documentation- [x] I saw and evaluated the patient. I have also reviewed all the pertinent lab results and diagnostic results. I agree with the findings and the plan of care as documented in the PA's/MEDICAID BILLER's documentation. [] I have reviewed the ED Record and agree with the PA's/MEDICAID BILLER's documentation. [] Additions or exceptions (if any) to the PAs/MEDICAID BILLER's note and plan are summarized below: [] (Hamida CHAPARRO,Jackson Hu) Critical Care Note Critical Care Note Critical Care Time: non-applicable (Reji Walker)
--- NOTE | 2017-05-23 17:14 | History & Physical ---
Suzy Gibbs 05/23/17 1713: General Information and HPI MD Statement: I have seen and personally examined TERESA RODRIGEZ and documented this H&P. The patient is a 36 year old F who presented with a patient stated chief complaint of [shortness of breath ]. 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 She was at her normal state of health care discharged from [facility] earlier this month. Facies course of Bactrim and was on by mouth prednisone. About 2-3 days ago patient noticed intermittent wheezing and mild dyspnea primarily on exertion. According to patient, all of her family members had symptoms of upper respiratory tract infection one week prior to her symptoms. Patient shortness of breath worsened over this ratio of 2-3 days and did not improve with frequent use of inhaler. According to patient she was found hypoxic at 81 and 87% on room air by her visiting nurse. Ambulance was called, her emergency responders patient was hypoxic to 81% and received 1 dose of IV Solu-Medrol 125 and 2 g of IV magnesium which improved her shortness of breath. Additionally patient noticed few days of generalized fatigue and, dry cough and nasal congestion. She denies any runny nose, fevers, shaking chills, GI symptoms. Currently nonsmoker (neither active nor passes). During her last admission, she was treated with PO steroids, Singulair, Spiriva, Claritin and was sent home on Bactrim prophylaxis for PCP. She was supposed to follow up with her usual count team clerk specialist next week. Of note, according to patient he is on OxyContin 30 mg every 4 for pain management. In the ED vitals temperature 98.3, pulse 96, respiration 20, blood pressure 133/ 85, pulse ox 88% on 2 L nasal cannula. Labs showed a white count of 11.7,eosinophils 11.8%, normal chemistries, d-dimer less than 200 Allergies/Medications Allergies: Coded Allergies: NO KNOWN ALLERGIES (07/30/16) Home Med list Albuterol Sulfate (Proair Hfa) 90 MCG HFA.AER.AD 2 PUF INH Q4-6 PRN PRN RESPIRATORY (Reported) Budesonide/Formoterol Fumarate (Symbicort 160-4.5 Mcg Inhaler) 160 MCG-4.5 MCG/ ACTUATION HFA.AER.AD 2 PUF INH BID SOB (Reported) Hydroxyzine HCl (hydrOXYzine HCl) 10 MG TABLET 10 MG PO DAILY PRN FOR INCREASED HEART RATE (Reported) Loratadine 10 MG TABLET 10 MG PO DAILY ASTHMA . Montelukast Sodium 10 MG TABLET 10 MG PO AT BEDTIME asthma . Oxycodone HCl 30 MG TABLET 1 TAB PO Q4H PRN PAIN (Reported) Paroxetine HCl 30 MG TABLET 2 TAB PO DAILY MENTAL HEALTH (Reported) Prednisone 20 MG TABLET 2 TAB PO DAILY SHORTNESS OF BREATH . Sulfamethoxazole/Trimethoprim (Bactrim Ds Tablet) 800 MG-160 MG TABLET 1 TAB PO Friday PCP PROPHYLAXIS Tiotropium [place] (Spiriva) 18 MCG CAP.W.DEV 1 CAP INH DAILY ASTHMA ( Reported) Trazodone HCl 50 MG TABLET 3 TAB PO QPM SLEEP (Reported) Compliance With Home Meds: FAIR Past History Travel History Traveled to [place] past 21 day No Medical History Neurological: FIBROMYALGIA EENT: TMJ arthritis s/p jaw surgery at [facility] 2010 Cardiovascular: syncope (vasovagal(has had cardio eval)) Respiratory: asthma, bronchitis, pneumonia, CRYPTOGENIC ORGANIZING Gastrointestinal: constipation (IBS), irritable bowel syndrome Hepatic: NONE Renal: NONE Musculoskeletal: fibromyalgia Psychiatric: anxiety Endocrine: NONE Blood Disorders: NONE Cancer(s): NONE 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 FH: diabetes mellitus UNCLE-MATERNAL (BOOP). GRANDMOTHER-MATERNAL (CHF). Relation not specified for: FH: CAD (coronary artery disease) FH: HTN (hypertension) FH: ovarian cancer FH: uterine cancer Psychosocial History Who Do You Live With? SIGNIFICANT OTHER Services at Home: None Primary Language: Mauritanian ETOH Use: denies use Illicit Drug Use: denies illicit drug use Functional Ability ADLs Independent: dressing, eating, toileting, bathing. Ambulation: independent IADLs Independent: shopping, housework, finances, food prep, telephone, transportation , medication admin. Review of Systems Review of Systems Constitutional: Reports: see HPI. Exam & Diagnostic Data Last 24 Hrs of Vital Signs/I&O Vital Signs Date Time Temp Pulse Resp B/P B/P Pulse O2 O2 Flow FiO2 Mean Ox Delivery Rate 05/23 1745 98.3 96 20 133/85 97 Nasal 2.0L Cannula 05/23 1437 98.3 96 22 149/87 96 Non ReBreather Intake & Output 05/23 1600 05/23 0800 05/23 0000 Intake Total Output Total Balance Patient 170 lb Weight Weight Reported by Patient Measurement Method Physical Exam General Appearance Alert, Oriented X3, Cooperative, Mild Distress Skin No Rashes, No Breakdown, No Significant Lesion Skin Temp/Moisture Exam: Warm/Dry HEENT PERRLA, EOMI Neck No JVD Cardiovascular Normal S1, Normal S2, No Murmurs Lungs mild expiratory wheeze, poor respiratory effort Abdomen Soft Neurological Normal Speech, Strength at 5/5 X4 Ext, Normal Tone, Sensation Intact, L4-L5 paraspinal muscle tenderness Extremities No Cyanosis, No Edema Body Front and Back (Adult) 1) Paraspinal muscle tenderness Last 24 Hrs of Labs/Luke: Laboratory Tests 05/23/17 1515: Anion Gap 10, Estimated GFR > 60, BUN/Creatinine Ratio 13.8, Glucose 124 H, Calcium 9.1, Total Bilirubin 0.6, AST 19, ALT 26, Alkaline Phosphatase 97, Troponin I < 0.01, Uri-B-Cstxljrhhfr Pept 57.9, Total Protein 6.6, Albumin 4.1, Globulin 2.5, Albumin/Globulin Ratio 1.6, D-Dimer High Sensitivty < 200, CBC w Diff NO MAN DIFF REQ, RBC 4.67, MCV 78.4 L, MCH 25.6 L, RDW 17.8 H, MPV 7.4, Gran % 56.6, Lymphocytes % 27.4, Monocytes % 4.0, Eosinophils % 11.8 H, Basophils % 0.2, Absolute Granulocytes 5.8, Absolute Lymphocytes 2.8, Absolute Monocytes 0.4, Absolute Eosinophils 1.2, Absolute Basophils 0, PUBS MCHC 32.6 L Diagnostic Data CXR Results Persistently hazy airspace opacities in lung bases. No change compared to pass. Cryptogenic organizing pneumonia is a main possibilities Assessment/Plan Assessment: 36-year-old woman with past medical history of mild COPD-asthma overlap syndrome , presumable cryptogenic organizing pneumonia (no tissue diagnosis per patient wishes on chronic prednisone) and peripheral eosinophilia was admitted for allegedly hypoxic respiratory failure. 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, [place], chronic allerigic pneumonitis, multifactorial #2 Significant leukocytosis without evidence of infection was possibly secondary to steroids #3 chronic pain Plan * Admit to general medical floor as an observation * TRC / neb * Symbicort 1604 0.52 puffs twice daily * Spriva 18 MCG one capsule daily * IV Solu-Medrol 40 mg every 8h * Oxycodone 30 mg 1 tab every 4 as needed for chronic pain * Loratadine 10 mg by mouth daily * Singulair 10 mg by mouth daily at bedtime * pulm consult in the am Housekeeping [facility] As Ranked By This Provider Problem List: 1. Cryptogenic organizing pneumonia 2. Depression 3. TMJ (temporomandibular joint syndrome) 4. Leukocytosis 5. Full code status Core Measures/Misc (02/09) Acute Coronary Syndrome ACS Diagnosis: No Congestive Heart Failure Congestive Heart Failure Diagnosis No Cerebrovascular Accident CVA/TIA Diagnosis: No VTE (View Protocol) VTE Risk Factors CHF or Resp Failure No Mechanical VTE Prophylaxis d/t N/A MechProphylax Ordered No VTE Pharm Prophylaxis d/t NA PharmProphylax ordered Sepsis (View protocol) Sepsis Present: No Resident Review Statement Resident Statement: examined this patient, discussed with geotechnical intern, agreed with geotechnical intern, discussed with family, reviewed EMR data (avail), discussed with nursing , discussed with case mgmt, reviewed images, amended to note Attending MD Review Statement Attending Statement Attending MD Statement: examined this patient, discuss w/resident/PA/WIRELESS TECHNICIAN, agreed w/resident/PA/WIRELESS TECHNICIAN, discussed with family, reviewed EMR data (avail), discussed with nursing, discussed with case mgmt, reviewed images, amended to note Sarath Abdullahi 05/23/17 1747: Attending MD Review Statement Attending Statement Attending MD Statement: examined this patient, discuss w/resident/PA/WIRELESS TECHNICIAN, agreed w/resident/PA/WIRELESS TECHNICIAN, discussed with family, reviewed EMR data (avail), discussed with nursing, discussed with case mgmt, reviewed images, amended to note Attending Assessment/Plan: 36 o/f with pmh of asthma/ [place] on chronic steroid therapy and bactrim prophyalxis with triple therapy comes with shortness of breath and hypoxic 80 desaturating in ER requrign magnesium iv, iv solu medrol, oxygen supplementation. Patient being placed in observation status for asthma exacerbation with underlying [place]. Chest xray with similar findings as previous chest xray. Patient will receive iv solu-medrol, bactrim, bronchodilators, TRCs. Consult pulmonary. Patient had multiple hospitalsiations this year from similar complaints. gi/dvt prophylaxis full code, plan of care d/fri patient bedside in er.
[2017-05-23 20:24] VITALS: BP 122/84
--- NOTE | 2017-05-24 04:41 | PN- Housestaff ---
Suzy Gibbs 05/24/17 0440: Subjective Follow-up For: acute hypoxic respiratory failure 2/2 to asthma-copd exacerbation chronic pain anxiety and depression Complaints: back pain 7 out of 10, shortness of breath Subjective: patient reports interactible back pain. worsens w/ movement. no radiation. VSS On N/C 2 lit Not in distress; uses full sentences for communication and was able to finish her meal. Review of Systems Constitutional: Reports: see HPI. Cardiovascular: Reports: see HPI. Respiratory: Reports: short of breath, wheezing. Denies: cough. Gastrointestinal: Reports: no symptoms. Musculoskeletal: Reports: see HPI, back pain. Objective Last 24 Hrs of Vital Signs/I&O Vital Signs Date Time Temp Pulse Resp B/P B/P Pulse O2 O2 Flow FiO2 Mean Ox Delivery Rate 05/24 0831 94 Nasal 2.0L Cannula 05/24 0738 92 Nasal 2.0L Cannula 05/24 0724 24 94 Nasal 2.0L Cannula 05/24 0700 98.5 77 18 120/73 92 Nasal 2.0L Cannula 05/24 0000 94 Nasal 2.0L Cannula 05/23 2024 98.1 89 19 122/84 94 Nasal 2.0L Cannula 05/23 2021 94 Nasal 2.0L Cannula 05/23 2007 98.5 95 18 134/85 97 Room Air Room Air 05/23 1837 Nasal 2.0L Cannula 05/23 1745 98.3 96 20 133/85 97 Nasal 2.0L Cannula 05/23 1437 98.3 96 22 149/87 96 Non ReBreather Intake & Output 05/24 1600 05/24 0800 05/24 0000 Intake Total 510 480 Output Total Balance 510 480 Intake, IV 30 Intake, Oral 480 480 Number 0 Bowel Movements Patient 170 lb Weight Physical Exam General Appearance: Alert, Oriented X3, Cooperative, No Acute Distress HEENT: Atraumatic, PERRLA, EOMI, Mucous Membr. moist/pink Neck: No JVD Lymphatic: Axillary nl, Cervical nl Cardiovascular: Normal S1, Normal S2, No Murmurs Lungs: faint end expiratory wheez Abdomen: Soft Neurological: Normal Gait, Normal Speech Extremities: No Edema Current Medications: Current Medications Sig/Nathan Start time Last Medication Dose Route Stop Time Status Admin Acetaminophen 0 .STK-MED ONE 05/23 1505 DC IV Acetaminophen 1,000 MG ONCE ONE 05/23 1500 DC 05/23 N/A 1 UNIT IV 05/23 1514 1512 Albuterol Sulfate 3 ML EVERY 4 HRS/AWAKE 05/23 2000 AC 05/24 INH 0733 Budesonide/ 2 PUF BID 05/23 2200 AC 05/24 Formoterol Fumarate INH 0723 Diclofenac Sodium 1 REILLY 4 TIMES/DAY 05/24 1007 AC TOP Heparin Sodium 5,000 UNIT Q8 05/23 2200 AC (Porcine) SC Hydroxyzine HCl 10 MG DAILY 05/24 1000 AC PO Loratadine 10 MG DAILY 05/23 1816 AC 05/24 PO 0945 Loratadine 10 MG DAILY 05/23 1815 CAN PO Methylprednisolone 40 MG Q8 05/23 2200 AC 05/24 IV 0557 Montelukast Sodium 10 MG AT BEDTIME 05/24 2200 AC PO Oxycodone HCl 30 MG Q4 05/23 2200 AC 05/24 PO 0945 Paroxetine HCl 60 MG DAILY 05/24 1000 AC PO Tiotropium [place] 1 PUF DAILY 05/23 1817 AC 05/24 INH 0945 Trazodone HCl 150 MG 05/23 AC 05/23 PO 2107 Last 24 Hrs of Lab/Luke Results Last 24 Hrs of Labs/Mics: Laboratory Tests 05/23/17 1825: pH 7.42, pCO2 39, pO2 87, HCO3 25, ABG O2 Sat (Measured) 96.0, P-50 (Temp Corrected) Y, Carboxyhemoglobin 0.1 L, O2 Concentration % 2L, Temperature 97.2, O2 Delivery Method N/C, Phlebotomy Draw Site RIGHT RADIAL 05/23/17 1515: Anion Gap 10, Estimated GFR > 60, BUN/Creatinine Ratio 13.8, Glucose 124 H, Calcium 9.1, Total Bilirubin 0.6, AST 19, ALT 26, Alkaline Phosphatase 97, Troponin I < 0.01, Lwf-[id number]-Hniafgdgdum Pept 57.9, Total Protein 6.6, Albumin 4.1, Globulin 2.5, Albumin/Globulin Ratio 1.6, D-Dimer High Sensitivty < 200, CBC w Diff NO MAN DIFF REQ, RBC 4.67, MCV 78.4 L, MCH 25.6 L, RDW 17.8 H, MPV 7.4, Gran % 56.6, Lymphocytes % 27.4, Monocytes % 4.0, Eosinophils % 11.8 H, Basophils % 0.2, Absolute Granulocytes 5.8, Absolute Lymphocytes 2.8, Absolute Monocytes 0.4, Absolute Eosinophils 1.2, Absolute Basophils 0, PUBS MCHC 32.6 L Assessment/Plan Assessment: 36-year-old woman with past medical history of mild COPD-asthma overlap syndrome , presumable cryptogenic organizing pneumonia (no tissue diagnosis per patient wishes on chronic prednisone) and peripheral eosinophilia was admitted for allegedly hypoxic respiratory failure. 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 Headache 2. Pneumonia 3. Asthma exacerbation 4. IBS (irritable bowel syndrome) 5. Fibromyalgia 6. Full code status 7. 8. Leukocytosis 9. Acute bronchitis 10. 11. TMJ (temporomandibular joint syndrome) 12. Cryptogenic organizing pneumonia 13. Vasovagal syncopes 14. Depression 15. Status asthmaticus 16. Gastroenteritis 17. Hypoxia 18. Tachycardia 19. Asthma 20. Multifocal pneumonia 21. Asthma with acute exacerbation in adult 22. Acute and chronic respiratory failure with hypoxia 23. Acute and chronic respiratory failure with hypoxia 24. Cryptogenic organizing pneumonia Pain Ratin Pain Location: low back Pain Goal: Pain 4 or less Pain Plan: pain pathway Tomorrow's Labs & Rationales: none Discharge Plan Discharge Disposition: home Stable for Discharge? No Anticipated Discharge (Day): tomorrow Donna Landa MD 05/24/17 1205: Attending MD Review Statement Attending Statement Attending MD Statement: examined this patient, discuss w/resident/PA/PICTURE BOOKER, agreed w/resident/PA/PICTURE BOOKER, reviewed EMR data (avail), discussed with nursing, reviewed images Attending Assessment/Plan: Pt feels like she pulled/twisted her back. The resident has prescribed some voltaren gel for her in addition to her usual opiates. 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 We are treating her with IV steroids as an exacerbation of COPD. Awaiting pulmonary evaluation. I don't think she needs antibiotics but will follow closely. She is on Bactrim for prophylaxis as she is chronically steroid dependent.
[2017-05-24 07:00] VITALS: BP 120/73
[2017-05-24 14:33] VITALS: BP 118/70
--- NOTE | 2017-05-24 16:11 | Cons- Pulmonary ---
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 She was at her normal state of health care discharged from [facility] earlier this month. Facies course of Bactrim and was on by mouth prednisone. About 2-3 days ago patient noticed intermittent wheezing and mild dyspnea primarily on exertion. According to patient, all of her family members had symptoms of upper respiratory tract infection one week prior to her symptoms. Patient shortness of breath worsened over this ratio of 2-3 days and did not improve with frequent use of inhaler. According to patient she was found hypoxic at 81 and 87% on room air by her visiting nurse. Ambulance was called, her emergency responders patient was hypoxic to 81% and received 1 dose of IV Solu-Medrol 125 and 2 g of IV magnesium which improved her shortness of breath. Additionally patient noticed few days of generalized fatigue and, dry cough and nasal congestion. She denies any runny nose, fevers, shaking chills, GI symptoms. Currently nonsmoker (neither active nor passes). During her last admission, she was treated with PO steroids, Singulair, Spiriva, Claritin and was sent home on Bactrim prophylaxis for PCP. She was supposed to follow up with her usual member of technical staff specialist next week. Of note, according to patient he is on OxyContin 30 mg every 4 for pain management. In the ED vitals temperature 98.3, pulse 96, respiration 20, blood pressure 133/ 85, pulse ox 88% on 2 L nasal cannula. Labs showed a white count of 11.7,eosinophils 11.8%, normal chemistries, d-dimer less than 200 Allergies/Medications Allergies: Coded Allergies: NO KNOWN ALLERGIES (07/30/16) Home Med List: Albuterol Sulfate (Proair Hfa) 90 MCG HFA.AER.AD 2 PUF INH Q4-6 PRN PRN RESPIRATORY (Reported) Budesonide/Formoterol Fumarate (Symbicort 160-4.5 Mcg Inhaler) 160 MCG-4.5 MCG/ ACTUATION HFA.AER.AD 2 PUF INH BID SOB (Reported) Hydroxyzine HCl (hydrOXYzine HCl) 10 MG TABLET 10 MG PO PRN FOR INCREASED HEART RATE (Reported) Loratadine 10 MG TABLET 10 MG PO DAILY ASTHMA . Montelukast Sodium 10 MG TABLET 10 MG PO AT BEDTIME asthma . Oxycodone HCl 30 MG TABLET 1 TAB PO Q4H PRN PAIN (Reported) Paroxetine HCl 30 MG TABLET 2 TAB PO DAILY MENTAL HEALTH (Reported) Prednisone 20 MG TABLET 2 TAB PO DAILY SHORTNESS OF BREATH . Tiotropium [place] (Spiriva) 18 MCG CAP.W.DEV 1 CAP INH DAILY ASTHMA ( Reported) Trazodone HCl 50 MG TABLET 3 TAB PO QPM SLEEP (Reported) Review of Systems Review of Systems Constitutional: Reports: see HPI. Past History Travel History Traveled to [place] past 21 day No Medical History Blood Transfusion Hx: No Neurological: FIBROMYALGIA EENT: TMJ arthritis s/p jaw surgery at [facility] 2010 Cardiovascular: syncope (vasovagal(has had cardio eval)) Respiratory: asthma, bronchitis, pneumonia, CRYPTOGENIC ORGANIZING Gastrointestinal: constipation (IBS), irritable bowel syndrome Hepatic: NONE Renal: NONE Musculoskeletal: fibromyalgia Psychiatric: anxiety Endocrine: NONE Blood Disorders: NONE Cancer(s): NONE EMERGENCY MEDICINE NURSE PRACTITIONER/Reproductive: miscarriage, 2016 Surgical History Surgical History: appendectomy, plantar wart removal jaw surgery for TMJ Family History Relations & Conditions If Any: FATHER (Asthma). FH: diabetes mellitus UNCLE-MATERNAL (BOOP). GRANDMOTHER-MATERNAL (CHF). Relation not specified for: FH: CAD (coronary artery disease) FH: HTN (hypertension) FH: ovarian cancer FH: uterine cancer Psychosocial History Who Do You Live With? SIGNIFICANT OTHER Services at Home: None Primary Language: Thai Smoking Status: Never Smoked ETOH Use: denies use Illicit Drug Use: denies illicit drug use Functional Ability ADLs Independent: dressing, eating, toileting, bathing. Ambulation: independent IADLs Independent: shopping, housework, finances, food prep, telephone, transportation , medication admin. Exam & Diagnostic Data Last 24 Hrs of Vital Signs/I&O Vital Signs Date Time Temp Pulse Resp B/P B/P Pulse O2 O2 Flow FiO2 Mean Ox Delivery Rate 05/24 1433 98.2 101 18 118/70 93 Nasal 2.0L Cannula 05/24 0831 94 Nasal 2.0L Cannula 05/24 0738 92 Nasal 2.0L Cannula 05/24 0724 24 94 Nasal 2.0L Cannula 05/24 0700 98.5 77 18 120/73 92 Nasal 2.0L Cannula 05/24 0000 94 Nasal 2.0L Cannula 05/23 2024 98.1 89 19 122/84 94 Nasal 2.0L Cannula 05/23 2021 94 Nasal 2.0L Cannula 05/23 2007 98.5 95 18 134/85 97 Room Air Room Air 05/23 1837 Nasal 2.0L Cannula 05/23 1745 98.3 96 20 133/85 97 Nasal 2.0L Cannula Intake & Output 05/24 1600 05/24 0800 05/24 0000 Intake Total 820 510 480 Output Total Balance 820 510 480 Intake, IV 20 30 Intake, Oral 800 480 480 Number 0 0 Bowel Movements Patient 170 lb Weight Last 48 Hrs of Labs/Luke: Laboratory Tests 05/23/17 1825: pH 7.42, pCO2 39, pO2 87, HCO3 25, ABG O2 Sat (Measured) 96.0, P-50 (Temp Corrected) Y, Carboxyhemoglobin 0.1 L, O2 Concentration % 2L, Temperature 97.2, O2 Delivery Method N/C, Phlebotomy Draw Site RIGHT RADIAL 05/23/17 1515: Anion Gap 10, Estimated GFR > 60, BUN/Creatinine Ratio 13.8, Glucose 124 H, Calcium 9.1, Total Bilirubin 0.6, AST 19, ALT 26, Alkaline Phosphatase 97, Troponin I < 0.01, Jal-V-Dbugtjkdwjh Pept 57.9, Total Protein 6.6, Albumin 4.1, Globulin 2.5, Albumin/Globulin Ratio 1.6, D-Dimer High Sensitivty < 200, CBC w Diff NO MAN DIFF REQ, RBC 4.67, MCV 78.4 L, MCH 25.6 L, RDW 17.8 H, MPV 7.4, Gran % 56.6, Lymphocytes % 27.4, Monocytes % 4.0, Eosinophils % 11.8 H, Basophils % 0.2, Absolute Granulocytes 5.8, Absolute Lymphocytes 2.8, Absolute Monocytes 0.4, Absolute Eosinophils 1.2, Absolute Basophils 0, PUBS MCHC 32.6 L Assessment/Plan Impression/Plan: General Appearance Alert, Oriented X3, Cooperative, Mild Distress Skin No Rashes, No Breakdown, No Significant Lesion Skin Temp/Moisture Exam: Warm/Dry HEENT PERRLA, EOMI Neck No JVD Cardiovascular Normal S1, Normal S2, No Murmurs Lungs mild expiratory wheeze, poor respiratory effort Abdomen Soft Neurological Normal Speech, Strength at 5/5 X4 Ext, Normal Tone, Sensation Intact, L4-L5 paraspinal muscle tenderness Extremities No Cyanosis, No Edema IMRRESSION 36-year-old woman with past medical history of mild COPD-asthma overlap syndrome , chronic on and off eosinophilic phenotype, presumable cryptogenic organizing pneumonia (no tissue diagnosis per patient wishes on chronic prednisone) and peripheral eosinophilia was admitted for worsening resp insuff ISSUES Mild resp insuff due to above Severe asthma with eosinophilic phenotype 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
[2017-05-24] MEDS ORDERED: BACTRIM DS TAB1 EACH PO (18:01)
[2017-05-24 21:58] VITALS: BP 114/70
[2017-05-25 06:53] VITALS: BP 118/80
[2017-05-25 08:37] LABS: ABSOLUTE BASOPHIL COUNT 0 /CUMM (0.0-0.2); ABSOLUTE EOSINOPHIL COUNT 0 /CUMM (0.0-0.7); ABSOLUTE GRANULOCYTE CT 10.5 /CUMM (1.4-6.5); ABSOLUTE LYMPH COUNT 0.9 /CUMM (1.2-3.4); ABSOLUTE MONOCYTE COUNT 0.4 /CUMM (0.10-0.60); BASOPHIL % 0.3 % (0.0-2.0); EOSINOPHIL % 0 % (0-5); HEMATOCRIT 35.6 % (37-47); MEAN CORPUSCULAR HGB 25.7 PG (27.0-31.0); MEAN CORPUSCULAR HGB CONC 32.3 G/DL (33.0-37.0); MEAN CORPUSCULAR VOLUME 79.4 FL (81.0-99.0); MEAN PLATELET VOLUME 8.3 FL (7.4-10.4); PLATELET COUNT 451 /CUMM (130-400); RBC DISTRIBUTION WIDTH 18.4 % (11.5-14.5); RED BLOOD CELL CT 4.49 /CUMM (4.20-5.40); WHITE BLOOD CELL COUNT 11.8 /CUMM (4.8-10.8)
[2017-05-25 09:09] LABS: GRANULOCYTE % 88.6 % (42.2-75.2)
--- NOTE | 2017-05-25 09:39 | PN- Housestaff ---
Phoebe,[facility] 05/25/17 0938: Subjective Follow-up For: -Asthma exacerbation Complaints: no complaints Subjective: Patient seen and examined, lying on the bed comfortable, with no acute distress, she is on 2 L oxygen, she reported that her baseline is 2L nocturnal oxygen. She reports improvements in her breathing, minimal cough, no fever, no chills, vitals overnight remained stable Review of Systems Constitutional: Reports: no symptoms. EENTM: Reports: no symptoms. Cardiovascular: Reports: no symptoms. Respiratory: Reports: cough, short of breath, wheezing. Gastrointestinal: Reports: no symptoms. Genitourinary: Reports: no symptoms. Musculoskeletal: Reports: see HPI. Skin: Reports: no symptoms. Objective Last 24 Hrs of Vital Signs/I&O Vital Signs Date Time Temp Pulse Resp B/P B/P Pulse O2 O2 Flow FiO2 Mean Ox Delivery Rate 05/25 0730 Nasal 2.0L Cannula 05/25 0653 98.0 74 20 118/80 94 05/25 0000 Nasal 2.0L Cannula 05/24 2158 98.6 78 19 114/70 93 Nasal 2.0L Cannula 05/24 1610 91 Nasal 2.0L Cannula 05/24 1600 Nasal 2.0L Cannula 05/24 1433 98.2 101 18 118/70 93 Nasal 2.0L Cannula Intake & Output 05/25 1600 05/25 0800 05/25 0000 Intake Total 490 1010 Output Total Balance 490 1010 Intake, IV 10 10 Intake, Oral 480 1000 Number 0 Bowel Movements Physical Exam General Appearance: Alert, Oriented X3, Cooperative, No Acute Distress Skin: No Rashes, No Breakdown, No Significant Lesion HEENT: Atraumatic, PERRLA, EOMI, Mucous Membr. moist/pink Neck: Supple, No JVD Lymphatic: Axillary nl, Cervical nl Cardiovascular: Regular Rate, Normal S1, Normal S2, No Murmurs Lungs: Normal Air Movement, B/L wheezing Abdomen: Normal Bowel Sounds, Soft, No Tenderness Neurological: Normal Speech, Strength at 5/5 X4 Ext, Normal Tone, Sensation Intact Extremities: No Clubbing, No Cyanosis, No Edema Vascular: Normal Pulses, Pulses Symmetrical Current Medications: Current Medications Sig/Nathan Start time Last Medication Dose Route Stop Time Status Admin Albuterol Sulfate 3 ML EVERY 4 HRS/AWAKE 05/23 2000 AC 05/24 INH 2030 Budesonide/ 2 PUF BID 05/23 2200 AC 05/25 Formoterol Fumarate INH 0859 Diclofenac Sodium 1 REILLY 4 TIMES/DAY 05/24 1007 AC TOP Heparin Sodium 5,000 UNIT Q8 05/23 2200 AC (Porcine) SC Hydroxyzine HCl 10 MG DAILY 05/24 1000 AC 05/25 PO 0900 Loratadine 10 MG DAILY 05/236 AC 05/25 PO 0900 Methylprednisolone 40 MG Q8 05/230 DC 05/24 IV 1408 Montelukast Sodium 10 MG AT BEDTIME 05/24 2200 AC 05/24 PO 2141 Oxycodone HCl 30 MG Q4 05/25 1400 AC PO Oxycodone HCl 20 MG Q4 05/24 2200 DC 05/25 PO 0859 Oxycodone HCl 30 MG Q4 05/23 2200 DC 05/24 PO 1755 Paroxetine HCl 60 MG DAILY 05/24 1000 AC 05/25 PO 0900 Prednisone 40 MG DAILY 05/24 1752 AC 05/25 PO 0900 Tiotropium [place] 1 PUF DAILY 05/23 1817 AC 05/25 INH 0859 Trazodone HCl 150 MG 05/23 AC 05/24 PO 2142 Trimethoprim/ 1 TAB BID 05/24 2200 AC 05/24 Sulfamethoxazole PO 214 Last 24 Hrs of Lab/Luke Results Last 24 Hrs of Labs/Mics: Laboratory Tests 05/25/17 0707: CBC w Diff NO MAN DIFF REQ, RBC 4.49, MCV 79.4 L, MCH 25.7 L, RDW 18.4 H, MPV 8.3, Gran % 88.6 H, Lymphocytes % 7.8 L, Monocytes % 3.3, Eosinophils % 0, Basophils % 0.3, Absolute Granulocytes 10.5 H, Absolute Lymphocytes 0.9 L, Absolute Monocytes 0.4, Absolute Eosinophils 0, Absolute Basophils 0, PUBS MCHC 32.3 L Assessment/Plan Assessment: 36-year-old woman with past medical history of mild COPD-asthma overlap syndrome , presumable cryptogenic organizing pneumonia (no tissue diagnosis per patient wishes on chronic prednisone) and peripheral eosinophilia was admitted for allegedly hypoxic respiratory failure. 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, RECRUITING INTERN, chronic allerigic pneumonitis, multifactorial #2 Significant leukocytosis without evidence of infection was possibly secondary to steroids #3 chronic pain #4 anxiety and depression Plan * continue observation * TRC / neb * Symbicort 1604 0.52 puffs twice daily * Spriva 18 MCG one capsule daily * On prednisone 40mg daily * Oxycodone 30 mg 1 tab every 4 as needed for chronic pain * Loratadine 10 mg by mouth daily * Singulair 10 mg by mouth daily at bedtime * paroxethin -home dose * Voltran gel 1% for back pain * PT * Will extend observation for 24 hours, if she remained stable dc at am [employer] Problem List: 1. Asthma exacerbation 2. Cryptogenic organizing pneumonia Pain Ratin Pain Location: Generalized Pain Goal: Remain pain free Pain Plan: - Tomorrow's Labs & Rationales: - DVT/Prophylaxis: pharmacological Donna Landa MD 05/25/17 1032: Attending MD Review Statement Attending Statement Attending MD Statement: examined this patient, discuss w/resident/PA/BUILDING ENGINEER, agreed w/resident/PA/BUILDING ENGINEER, reviewed EMR data (avail), discussed with nursing, reviewed images Attending Assessment/Plan: Pt still feels significantly short of breath and doesn't feel up to going home today. She feels like tomorrow will be better for her. She also states that she takes oxycodone 30 every 4 and she is unclear why the dose was reduced. Will extend the observationfor another 24 hours. She has underlying suspected cryptogenic organizing pneumonia, not biopsy proven as per patient choice and is chronically steroid dependent. We are treating her with by mouth steroids and will ambulate her and check her sats. Will increase her oxycodone to 30 every 4 as she normally takes and will anticipate discharge in a.m. with outpatient follow-up.
--- NOTE | 2017-05-25 13:35 | PN- Pulmonary ---
Subjective HPI/Critical Care Issues: Patient seen and examined, lying on the bed comfortable, with no acute distress, she is on 2 L oxygen, she reported that her baseline is 2L nocturnal oxygen. She reports improvements in her breathing, minimal cough, no fever, no chills, vitals overnight remained stable Objective Current Medications: Current Medications Sig/Nathan Start time Last Medication Dose Route Stop Time Status Admin Albuterol Sulfate 3 ML EVERY 4 HRS/AWAKE 05/23 2000 AC 05/25 INH 1110 Budesonide/ 2 PUF BID 05/23 2200 AC 05/25 Formoterol Fumarate INH 0859 Diclofenac Sodium 1 REILLY 4 TIMES/DAY 05/24 1007 AC TOP Heparin Sodium 5,000 UNIT Q8 05/23 2200 AC (Porcine) SC Hydroxyzine HCl 10 MG DAILY 05/24 1000 AC 05/25 PO 0900 Loratadine 10 MG DAILY 05/23 181 AC 05/25 PO 0900 Methylprednisolone 40 MG Q8 05/23 2200 DC 05/24 IV 1408 Montelukast Sodium 10 MG AT BEDTIME 05/24 2200 AC 05/24 PO 2141 Oxycodone HCl 30 MG Q4 05/25 1400 AC 05/25 PO 1301 Oxycodone HCl 20 MG Q4 05/24 2200 DC 05/25 PO 0859 Oxycodone HCl 30 MG Q4 05/23 2200 DC 05/24 PO 1755 Paroxetine HCl 60 MG DAILY 05/24 1000 AC 05/25 PO 0900 Prednisone 40 MG DAILY 05/24 1752 AC 05/25 PO 0900 Tiotropium [place] 1 PUF DAILY 05/23 1817 AC 05/25 INH 0859 Trazodone HCl 150 MG 2200 05/23 2200 AC 05/24 PO 2142 Trimethoprim/ 1 TAB BID 05/24 2200 AC 05/25 Sulfamethoxazole PO 1116 Vital Signs & I&O Last 24 Hrs of Vitals and I&O: Vital Signs Date Time Temp Pulse Resp B/P B/P Pulse O2 O2 Flow FiO2 Mean Ox Delivery Rate 05/25 1113 95 Nasal 2.0L Cannula 05/25 0730 Nasal 2.0L Cannula 05/25 0653 98.0 74 20 118/80 94 05/25 0000 Nasal 2.0L Cannula 05/24 2158 98.6 78 19 114/70 93 Nasal 2.0L Cannula 05/24 1610 91 Nasal 2.0L Cannula 05/24 1600 Nasal 2.0L Cannula 05/24 1433 98.2 101 18 118/70 93 Nasal 2.0L Cannula Intake & Output 05/25 1600 05/25 0800 05/25 0000 Intake Total 490 1010 Output Total Balance 490 1010 Intake, IV 10 10 Intake, Oral 480 1000 Number 0 Bowel Movements Impression/Plan Impression/Plan Impression/Plan: General Appearance Alert, Oriented X3, Cooperative, Mild Distress Skin No Rashes, No Breakdown, No Significant Lesion Skin Temp/Moisture Exam: Warm/Dry HEENT PERRLA, EOMI Neck No JVD Cardiovascular Normal S1, Normal S2, No Murmurs Lungs mild expiratory wheeze, poor respiratory effort Abdomen Soft Neurological Normal Speech, Strength at 5/5 X4 Ext, Normal Tone, Sensation Intact, L4-L5 paraspinal muscle tenderness Extremities No Cyanosis, No Edema IMRRESSION 36-year-old woman with past medical history of mild COPD-asthma overlap syndrome , chronic on and off eosinophilic phenotype, presumable cryptogenic organizing pneumonia (no tissue diagnosis per patient wishes on chronic prednisone) and peripheral eosinophilia was admitted for worsening resp insuff ISSUES Mild resp insuff due to above Severe asthma with eosinophilic phenotype 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
[2017-05-25 14:10] VITALS: BP 110/60
[2017-05-25 21:53] VITALS: BP 120/80
[2017-05-26 06:41] VITALS: BP 128/84
--- NOTE | 2017-05-26 09:39 | PN- Housestaff ---
Subjective Follow-up For: Asthma exacerbation Complaints: lethargic Subjective: Patient feeling better as compared to yesterday. She did not have any acute episodes of shortness of breath or chest pain overnight. She feels lethargic. Review of Systems Constitutional: Denies: chills, fever. EENTM: Denies: visual changes. Cardiovascular: Denies: chest pain, palpitations. Respiratory: Denies: cough, short of breath. Gastrointestinal: Denies: abdominal pain, constipation. Genitourinary: Denies: dysuria. Musculoskeletal: Reports: joint pain (TMJ). Objective Last 24 Hrs of Vital Signs/I&O Vital Signs Date Time Temp Pulse Resp B/P B/P Pulse O2 O2 Flow FiO2 Mean Ox Delivery Rate 05/26 0808 98 Nasal 2.0L Cannula 05/26 0725 95 Nasal 2.0L Cannula 05/26 0641 98.0 71 18 128/84 95 05/26 0000 Nasal 2.0L Cannula 05/25 2153 98.0 87 19 120/80 96 Nasal 2.0L Cannula 05/25 2031 95 Nasal 2.0L Cannula 05/25 1620 91 Nasal 2.0L Cannula 05/25 1600 Nasal 2.0L Cannula 05/25 1410 97.8 92 22 110/60 94 Nasal 2.0L Cannula Intake & Output 05/26 1600 05/26 0800 05/26 0000 Intake Total 240 1210 Output Total Balance 240 1210 Intake, IV 10 Intake, Oral 240 1200 Physical Exam General Appearance: Alert, Oriented X3, Cooperative, No Acute Distress HEENT: Atraumatic Neck: Supple Cardiovascular: Regular Rate, Normal S1, Normal S2 Lungs: mild bilateral wheezing Abdomen: Normal Bowel Sounds, Soft, No Tenderness Neurological: Normal Speech, Normal Tone, Sensation Intact Extremities: No Clubbing, No Edema Vascular: Normal Pulses Current Medications: Current Medications Sig/Nathan Start time Last Medication Dose Route Stop Time Status Admin Albuterol Sulfate 3 ML EVERY 4 HRS/AWAKE 05/23 2000 AC 05/26 INH 0806 Budesonide/ 2 PUF BID 05/23 2200 AC 05/26 Formoterol Fumarate INH 1031 Diclofenac Sodium 1 REILLY 4 TIMES/DAY 05/24 1007 AC TOP Heparin Sodium 5,000 UNIT Q8 05/23 2200 AC (Porcine) SC Hydroxyzine HCl 10 MG DAILY 05/24 1000 AC 05/26 PO 1031 Loratadine 10 MG DAILY 05/23 1816 AC 05/26 PO 1032 Montelukast Sodium 10 MG AT BEDTIME 05/24 2200 AC 05/25 PO 2130 Oxycodone HCl 30 MG Q4 05/25 1400 AC 05/26 PO 1031 Oxycodone HCl 30 MG .STK-MED ONE 05/25 1258 DC PO 05/25 1259 Paroxetine HCl 60 MG DAILY 05/24 1000 AC 05/26 PO 1031 Prednisone 40 MG DAILY 05/24 1752 AC 05/26 PO 1031 Tiotropium [place] 1 PUF DAILY 05/23 1817 AC 05/26 INH 1031 Trazodone HCl 150 MG 2200 05/23 220 AC 05/25 PO 2130 Trimethoprim/ 1 TAB BID 05/24 2200 DC 05/25 Sulfamethoxazole PO 0 Last 24 Hrs of Lab/Luke Results Last 24 Hrs of Labs/Mics: Laboratory Tests 05/25/17 1305: Urine Opiates Screen > 4000.00 H, Methadone Screen 42, Barbiturate Screen < 60, Ur Phencyclidine Scrn < 6.00, Amphetamines Screen < 100, U Benzodiazepines Scrn < 85, Urine Cocaine Screen 554 H, Urine Cannabis Screen < 5.00 Lines/Diet/Fluids Restraints: none Assessment/Plan Assessment: 36-year-old woman with past medical history of mild COPD-asthma overlap syndrome , presumable cryptogenic organizing pneumonia (no tissue diagnosis per patient wishes on chronic prednisone) and peripheral eosinophilia was admitted for hypoxic respiratory failure. Significant leukocytosis and eosinophilia on yesterday labs Chest x-ray unchanged suggestive of cryptogenic organizing pneumonia Vital signs are stable, patient remained afebrile overnight Patient was placed in observation for the management of following problems #1 hypoxic respiratory failure secondary to COPD/asthma ( probably allergic w/ peripheral eosino) overlap syndrome exacerbation, GLASS CUT OFF TENDER, chronic allerigic pneumonitis, multifactorial #2 Significant leukocytosis without evidence of infection was possibly secondary to steroids #3 chronic pain #4 anxiety and depression Plan * continue observation * TRC / neb * Symbicort 1604 0.52 puffs twice daily * Spriva 18 MCG one capsule daily * On prednisone 40mg daily * Oxycodone 30 mg 1 tab every 4 as needed for chronic pain * Loratadine 10 mg by mouth daily * Singulair 10 mg by mouth daily at bedtime * paroxethin -home dose * Voltran gel 1% for back pain * Patient was placed on Bactrim for PCP prophylaxis yesterday 1 Bactrim DS tablet 3 times a week, will continue that on discharge * Observation was extended yesterday. We will check oxygen saturation off oxygen sitting and on ambulation. Patient will follow-up with Dr. Verdugo on discharge Lethargy Patient was complaining of weakness and lethargy this morning. Likely secondary to decreased mobility during hospitalization. Physical therapy ordered. If patients weakness does not improve during the day will obtain influenza testing as patient did not receive vaccination this season. Patient is currently full code Patient is on heparin for DVT prophylaxis Patient is on pain management Patient is on regular diet Problem List: 1. Cryptogenic organizing pneumonia 2. Asthma with acute exacerbation in adult Pain Ratin Pain Location: TMJ Pain Goal: Pain 4 or less Pain Plan: Pain medications on board Tomorrow's Labs & Rationales: No labs DVT/Prophylaxis: pharmacological
--- NOTE | 2017-05-26 10:13 | Patient Discharge Instructions ---
Discharge Instructions General Discharge Information You were seen/treated for: Shortness of breath Special Instructions: Follow up with Dr. Verdugo in a week after discharge. Follow up with PCP in 2 weeks after discharge Diet Continue normal diet: Yes Activity Full Activity/No Limits: No Acute Coronary Syndrome Inclusion Criteria At DC or during hospital stay patient has or had the following: ACS DIAGNOSIS No Discharge Core Measures Meds if any: Prescribed or Continued at Discharge Meds if any: NOT Prescribed or Continued at Discharge Congestive Heart Failure Inclusion Criteria At DC or during hospital stay patient has or had the following: CHF DIAGNOSIS No Discharge Core Measures Meds if any: Prescribed or Continued at Discharge Meds if any: NOT Prescribed or Continued at Discharge Cerebrovascular accident Inclusion Criteria At DC or during hospital stay patient has or had the following: CVA/TIA Diagnosis No Discharge Core Measures Meds if any: Prescribed or Continued at Discharge Meds if any: NOT Prescribed or Continued at Discharge Venous thromboembolism Inclusion Criteria VTE Diagnosis No VTE Type NONE VTE Confirmed by (Test) NONE Discharge Core Measures - Per Current guidelines, there needs to be overlap - treatment for the first 5 days of Warfarin therapy. - If discharged on Warfarin prior to 5 days of - overlap therapy, the patient will need to be - assessed for post discharge needs including - *Post discharge parental anticoagulation - *Warfarin and/or parental anticoagulation education - *Follow up date to check INR post discharge At least 5 days overlap therapy as Inpatient No Meds if any: Prescribed or Continued at Discharge Note: Overlap Therapy is Warfarin and Anticoagulant Meds if any: NOT Prescribed or Continued at Discharge
--- NOTE | 2017-05-26 11:32 | PN- Att Addend ---
Attending Addendum Attending Brief Note Patient seen and examined. Agree with resident's note. Patient feels tired and weak today. I encouraged the patient to walk around after lunch. If she stays stable with no desaturation then likely discharge today with outpatient follow- up. She is chronically prednisone and opiate dependent. And has this presumptive diagnosis of COPD with no biopsy as per her choice.
[2017-05-26] MEDS ORDERED: BACTRIM DS TAB1 EACH PO ×2 (11:34→12:07)
--- NOTE | 2017-05-26 12:36 | PN- Pulmonary ---
Subjective HPI/Critical Care Issues: Doing better Objective Current Medications: Current Medications Sig/Nathan Start time Last Medication Dose Route Stop Time Status Admin Albuterol Sulfate 3 ML EVERY 4 HRS/AWAKE 05/23 2000 AC 05/26 INH 0806 Budesonide/ 2 PUF BID 05/23 2200 AC 05/26 Formoterol Fumarate INH 1031 Diclofenac Sodium 1 REILLY 4 TIMES/DAY 05/24 1007 AC TOP Heparin Sodium 5,000 UNIT Q8 05/23 220 AC (Porcine) SC Hydroxyzine HCl 10 MG DAILY 05/24 1000 AC 05/26 PO 1031 Loratadine 10 MG DAILY 05/23 1816 AC 05/26 PO 1032 Montelukast Sodium 10 MG AT BEDTIME 05/24 2200 AC 05/25 PO 2130 Oxycodone HCl 30 MG Q4 05/25 1400 AC 05/26 PO 1031 Oxycodone HCl 30 MG .STK-MED ONE 05/25 1258 DC PO 05/25 1259 Paroxetine HCl 60 MG DAILY 05/24 1000 AC 05/26 PO 1031 Prednisone 40 MG DAILY 05/24 1752 AC 05/26 PO 1031 Tiotropium [place] 1 PUF DAILY 05/23 1817 AC 05/26 INH 1031 Trazodone HCl 150 MG 05/23 AC 05/25 PO 2130 Trimethoprim/ 1 TAB BID 05/24 2200 DC 05/25 Sulfamethoxazole PO 2130 Vital Signs & I&O Last 24 Hrs of Vitals and I&O: Vital Signs Date Time Temp Pulse Resp B/P B/P Pulse O2 O2 Flow FiO2 Mean Ox Delivery Rate 05/26 0808 98 Nasal 2.0L Cannula 05/26 0725 95 Nasal 2.0L Cannula 05/26 0641 98.0 71 18 128/84 95 05/26 0000 Nasal 2.0L Cannula 05/25 2153 98.0 87 19 120/80 96 Nasal 2.0L Cannula 05/25 2031 95 Nasal 2.0L Cannula 05/25 1620 91 Nasal 2.0L Cannula 05/25 1600 Nasal 2.0L Cannula 05/25 1410 97.8 92 22 110/60 94 Nasal 2.0L Cannula Intake & Output 05/26 1600 05/26 0800 05/26 0000 Intake Total 240 1210 Output Total Balance 240 1210 Intake, IV 10 Intake, Oral 240 1200 Impression/Plan Impression/Plan Impression/Plan: General Appearance Alert, Oriented X3, Cooperative, Mild Distress Skin No Rashes, No Breakdown, No Significant Lesion Skin Temp/Moisture Exam: Warm/Dry HEENT PERRLA, EOMI Neck No JVD Cardiovascular Normal S1, Normal S2, No Murmurs Lungs mild expiratory wheeze, poor respiratory effort Abdomen Soft Neurological Normal Speech, Strength at 5/5 X4 Ext, Normal Tone, Sensation Intact, L4-L5 paraspinal muscle tenderness Extremities No Cyanosis, No Edema Urine tox positive for cocaine and morphine IMPRESSION 36-year-old woman with past medical history of mild COPD-asthma overlap syndrome , chronic on and off eosinophilic phenotype, presumable cryptogenic organizing pneumonia (no tissue diagnosis per patient wishes on chronic prednisone) and peripheral eosinophilia was admitted for worsening resp insuff ISSUES Mild resp insuff due to above Severe asthma with eosinophilic phenotype 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
[2017-05-26 14:29] VITALS: BP 122/80
== END 2017-05-26 17:33 ==
LOC: ERH 14:30 → ERHI 17:29 → 2NB 17:29 → ENRESERV 18:16 → ENTRNSPT 19:53 → EDTRNSPT 20:04 → EDTRNSPTSTS 20:04 → 2NB 20:16 → CMPTRNSPT 20:25 → ENPENDDIS 05-26 17:00 → 2NB 05-26 17:33
PROVIDERS: Physician Assistant Medical; Student in an Organized Health Care Education/Training Program
DX: J96.01 Acute respiratory failure with hypoxia (principal); J44.1 Chronic obstructive pulmonary disease with (acute) exacerbation; D72.1 Eosinophilia; M79.7 Fibromyalgia; D72.829 Elevated white blood cell count, unspecified; M26.609 Unspecified temporomandibular joint disorder, unspecified side; F41.9 Anxiety disorder, unspecified; G89.29 Other chronic pain; F32.9 Major depressive disorder, single episode, unspecified; F11.20 Opioid dependence, uncomplicated; E66.01 Morbid (severe) obesity due to excess calories; Z99.81 Dependence on supplemental oxygen; Z79.52 Long term (current) use of systemic steroids; K58.1 Irritable bowel syndrome with constipation; R06.89 Other abnormalities of breathing
CPT/HCPCS: 1263; 1328; 1530; 1748; 36415; 80307; 93005; 93010; 96374; 96375; 96376; G0378; J0131; J1644; J2920; J3490

== ENCOUNTER 2017-06-19 20:02 | Observation (INO) | payer OTHER, MEDICARE ==
[~2017-06-19] VITALS: Ht 157.5 cm; Wt 77.1 kg
[~2017-06-19 20:02] MED LIST changes: +HYDROXYZINE HCL10 M2 PO
--- NOTE | 2017-06-19 20:30 | ED DYSPNEA/ASTHMA COMPLAINT ---
History of Present Illness General Chief Complaint: General Adult Stated Complaint: PT IS HAVING PROBLEM BREATHING Source: patient Exam Limitations: no limitations Vital Signs & Intake/Output Vital Signs & Intake/Output Vital Signs Date Time Temp Pulse Resp B/P B/P Pulse O2 O2 Flow FiO2 Mean Ox Delivery Rate 06/19 2231 98.5 85 19 121/72 97 Nasal 4.0L Cannula 06/19 2152 94 Nasal 4.0L Cannula 06/19 2035 Nasal 4.0L Cannula 06/19 93 Nasal 4.0L Cannula 06/19 2004 120 30 128/81 79 Room Air Room Air ED Intake and Output 06/20 0000 06/19 1200 Intake Total 0 Output Total Balance 0 Intake, Oral 0 Patient 170 lb Weight Allergies Coded Allergies: No Known Allergies (06/19/17) Reconcile Medications Albuterol Sulfate (Proair Hfa) 90 MCG HFA.AER.AD 2 PUF INH Q4-6 PRN PRN RESPIRATORY (Reported) Budesonide/Formoterol Fumarate (Symbicort 160-4.5 Mcg Inhaler) 160 MCG-4.5 MCG/ ACTUATION HFA.AER.AD 2 PUF INH BID SOB (Reported) Guaifenesin/Dextromethorphan (Mucinex Dm ER 1,200-60 MG Tab) (Unknown Strength) TBMP.12HR (Unknown Dose) PO BID MUCUS/COUGH (Reported) Hydroxyzine HCl (hydrOXYzine HCl) 10 MG TABLET 10 MG PO DAILY PRN FOR INCREASED HEART RATE (Reported) Loratadine 10 MG TABLET 10 MG PO DAILY ASTHMA . Montelukast Sodium 10 MG TABLET 10 MG PO AT BEDTIME asthma . Oxycodone HCl 30 MG TABLET 1 TAB PO Q4H PRN PAIN (Reported) Paroxetine HCl 30 MG TABLET 2 TAB PO DAILY MENTAL HEALTH (Reported) Prednisone 20 MG TABLET 2 TAB PO DAILY SHORTNESS OF BREATH . Tiotropium [place] (Spiriva) 18 MCG CAP.W.DEV 1 CAP INH DAILY ASTHMA ( Reported) Trazodone HCl 50 MG TABLET 3 TAB PO QPM SLEEP (Reported) Triage Note: PT BROUGHT DIRECTLY TO [facility] FOR BACK PAIN, SWEATS, NAUSEA AND COUGHING. PT HAS A HX OF cryptogenic organizing pneumonia, AND IS CHRONICALLY ON 2L AT NIGHT. PT AT 79% ON ARRIVAL AND PLACED ON 4L. PT STATES SHE TOOK A DUONEB AND WOULD LIKE TO HOLD OFF BECUASE HER HEART IS RACING, CURRENTLY 120 Triage Nurses Notes Reviewed? 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 she reports SOB, cough, nausea, headache and back pain. symptoms have been present for 2 weeks with today being the worst. cough is productive with green/beaulieu sputum with occassional blood. patient states she did a nebulizer treatment prior to coming to the hospital with no relief of symptoms. Patient feels sweaty and diaphoretic with associated chills. (Denver Marrero) Past History Travel History Traveled to [place] past 21 day No Medical History Any Pertinent Medical History? 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 FH: diabetes mellitus UNCLE-MATERNAL (BOOP). GRANDMOTHER-MATERNAL (CHF). Relation not specified for: FH: CAD (coronary artery disease) FH: HTN (hypertension) FH: ovarian cancer FH: uterine cancer Hx Contributory? Yes (Denver Marrero) Review of Systems Review of Systems Constitutional: Reports: chills, diaphoresis, malaise. Denies: fever. EENTM: Reports: no symptoms. Respiratory: Reports: cough, short of breath, sputum production, wheezing. Cardiovascular: Reports: palpitations. GI: Reports: abdominal pain, nausea. Genitourinary: Reports: no symptoms. Musculoskeletal: Reports: muscle pain (back). Skin: Reports: no symptoms. Neurological/Psychological: Reports: no symptoms. Hematologic/Endocrine: Reports: no symptoms. Immunologic/Allergic: Reports: no symptoms. All Other Systems: Reviewed and Negative (Denver Marrero) Physical Exam Physical Exam General Appearance: well developed/nourished, alert, awake, anxious, moderate distress Head: atraumatic, normal appearance Eyes: Bilateral: normal appearance, EOMI. Ears, Nose, Throat: normal ENT inspection Neck: normal inspection Respiratory: chest non-tender, accessory muscle use, rhonchi, wheezing, respiratory distress (moderate) Cardiovascular: tachycardia Gastrointestinal: non-tender, no organomegaly Extremities: normal inspection Neurologic/Psych: awake, alert Skin: intact, normal color Core Measures ACS in differential dx? No CVA/TIA Diagnosis No Sepsis Present: No Sepsis Focused Exam Completed? No (Denver Marrero) Progress Differential Diagnosis: asthma, altitude sickness, bronchitis, costochondritis, COPD, musculoskeletal pain, pericarditis, pulmonary embolism, pneumonia, pneumothorax, rib fracture, unstable angina, SUBSYSTEMS ENGINEER Plan of Care: Orders Procedure Date/time Status Regular Diet 06/20 B Active OXYGEN SETUP (GEN) 06/20 28 Active Saline Lock 06/[address] in observation 06/20 0029 Active Vital Signs 06/20 28 Active Activity/Ambulation 06/20 002 Active Code Status 06/20 002 Active Patient Data 06/20 0027 Active RAPID VIRAL INFLUENZA A 06/19 2016 Complete BLOOD CULTURE 06/19 2014 Active TROPONIN LEVEL 06/19 2014 Complete LACTIC ACID 06/19 2014 Complete HUMAN BETA HCG SCREEN 06/19 2014 Complete COMPREHENSIVE METABOLIC PANEL 06/19 2014 Complete CBC WITHOUT DIFFERENTIAL 06/19 2014 Complete EKG 06/19 2014 Active Laboratory Tests 06/19/17 2315: Lactic Acid Cancelled 06/19/17 2035: Anion Gap 12, Estimated GFR > 60, BUN/Creatinine Ratio 14.3, Glucose 87, Lactic Acid 0.7, Calcium 9.4, Total Bilirubin 1.2, AST 20, ALT 25, Alkaline Phosphatase 116, Troponin I < 0.01, Total Protein 7.4, Albumin 4.4, Globulin 3.0, Albumin/ Globulin Ratio 1.5, Total Beta HCG NEGATIVE, CBC w Diff NO MAN DIFF REQ, RBC 4.82, MCV 78.3 L, MCH 25.3 L, MCHC 32.2 L, RDW 17.1 H, MPV 7.9, Gran % 66.6, Lymphocytes % 18.2 L, Monocytes % 5.2, Eosinophils % 9.5 H, Basophils % 0.5, Absolute Granulocytes 9.1 H, Absolute Lymphocytes 2.5, Absolute Monocytes 0.7 H, Absolute Eosinophils 1.3, Absolute Basophils 0.1 Microbiology 06/19 2034 BLOOD: Blood Culture - RECD 06/19 2034 BLOOD: Blood Culture - RECD 06/19 2029 NASOPHARYN: Influenza Virus A & B Rapid Smear - COMP Diagnostic Imaging: Viewed by Me: Radiology Read. Discussed w/RAD: Radiology Read. Radiology Impression: PATIENT: TERESA RODRIGEZ PRESENT AGE: 36 PATIENT ACCOUNT NO: [id number] : 81 LOCATION: [facility] ORDERING PHYSICIAN: Denver COSBY SERVICE DATE: 06/19/17 EXAM TYPE : RAD - XRY-PORTABLE CHEST XRAY EXAMINATION: XR PORTABLE CHEST CLINICAL INFORMATION: Shortness of breath COMPARISON: Chest CT 04/29/2017. Chest x-ray . TECHNIQUE: Portable frontal view of the chest was obtained. FINDINGS: Lung volumes are low. There is patchy hazy opacity at the lung bases which is more conspicuous than on the prior study. No dense focal consolidation. No pleural effusion. Heart size upper limits of normal. Normal pulmonary vascularity. Regional skeleton intact. IMPRESSION: Patchy hazy opacities at the lung bases are more conspicuous than on the prior study. Its unclear if this is technical or represents actual worsening of the airspace process present previously. Nonetheless, there is no dense focal consolidation seen. Prior studies given the history of cryptogenic organizing pneumonia. DICTATED BY: Sahil Nielsen MD DATE/TIME DICTATED:06/19/172114 MATERIAL MANAGER:NABOR DATE/TIME TRANSCRIBED:06/19/172114 CONFIDENTIAL, DO NOT COPY WITHOUT APPROPRIATE AUTHORIZATION. <Electronically signed in Other Vendor System> SIGNED BY: Sahil Nielsen MD 06/19/172118 Initial ED EKG: normal sinus rhythm, rate (90) (Denver Marrero) Departure Departure Disposition: STILL A PATIENT Condition: Stable Clinical Impression Primary Impression: Asthma exacerbation in COPD Referrals: James CHAPARRO,Socrates Mehta (PCP/Family) Departure Forms: Customer Survey General Discharge Information Observation Note Spoke With: Harish CHAPARRO,Jessica Physician Advisor Notified: SARYA ROUSE DO Place Patient In: Non-ED OBS Care Area Rationale for Observation: My rational for observation is as follows . Patient will require IV steroids. Oxygen. Pulmonary consult. Regular nebulizer treatments. Despite multiple treatments and steroids patient is still to Diaphoretic and has persistent tachypnea with wheezing and rhonchi. She has been admitted before. Medically not safe for discharge. She has failed outpatient treatment with oral steroids. (Denver Marrero) PA/BUILDING PRINCIPAL Co-Sign Statement Statement: ED Attending supervision documentation- x I saw and evaluated the patient. I have also reviewed all the pertinent lab results and diagnostic results. I agree with the findings and the plan of care as documented in the PA's/BUILDING PRINCIPAL's documentation. SOB, hypoxia improved with nebs and oxygen [] I have reviewed the ED Record and agree with the PA's/BUILDING PRINCIPAL's documentation. [] Additions or exceptions (if any) to the PAs/BUILDING PRINCIPAL's note and plan are summarized below: [] (Karma CHAPARRO,Kenneth) Critical Care Note Critical Care Note Critical Care Time: non-applicable (Denver Marrero)
[2017-06-19 20:51] LABS: ABSOLUTE BASOPHIL COUNT 0.1 /CUMM (0.0-0.2); ABSOLUTE EOSINOPHIL COUNT 1.3 /CUMM (0.0-0.7); ABSOLUTE GRANULOCYTE CT 9.1 /CUMM (1.4-6.5); ABSOLUTE LYMPH COUNT 2.5 /CUMM (1.2-3.4); ABSOLUTE MONOCYTE COUNT 0.7 /CUMM (0.10-0.60); BASOPHIL % 0.5 % (0.0-2.0); EOSINOPHIL % 9.5 % (0-5); GRANULOCYTE % 66.6 % (42.2-75.2); HEMATOCRIT 37.8 % (37-47); MEAN CORPUSCULAR HGB 25.3 PG (27.0-31.0); MEAN CORPUSCULAR HGB CONC 32.2 G/DL (33.0-37.0); MEAN CORPUSCULAR VOLUME 78.3 FL (81.0-99.0); MEAN PLATELET VOLUME 7.9 FL (7.4-10.4); PLATELET COUNT 353 /CUMM (130-400); RBC DISTRIBUTION WIDTH 17.1 % (11.5-14.5); RED BLOOD CELL CT 4.82 /CUMM (4.20-5.40); WHITE BLOOD CELL COUNT 13.6 /CUMM (4.8-10.8)
--- NOTE | 2017-06-19 21:19 | RADIOLOGY REPORT ---
EXAMINATION: XR PORTABLE CHEST CLINICAL INFORMATION: Shortness of breath COMPARISON: Chest CT 04/29/2017. Chest x-ray 05/23/2017. TECHNIQUE: Portable frontal view of the chest was obtained. FINDINGS: Lung volumes are low. There is patchy hazy opacity at the lung bases which is more conspicuous than on the prior study. No dense focal consolidation. No pleural effusion. Heart size upper limits of normal. Normal pulmonary vascularity. Regional skeleton intact. IMPRESSION: Patchy hazy opacities at the lung bases are more conspicuous than on the prior study. Its unclear if this is technical or represents actual worsening of the airspace process present previously. Nonetheless, there is no dense focal consolidation seen. Prior studies given the history of cryptogenic organizing pneumonia.
[2017-06-19] MEDS ORDERED: MUCINEX DM ER1 EACH PO (22:04)
--- NOTE | 2017-06-20 00:14 | History & Physical ---
Michoacano CHAPARRO,[facility] 06/20/17 0013: General Information and HPI MD Statement: I have seen and personally examined TERESA RODRIGEZ and documented this H&P. The patient is a 36 year old F who presented with a patient stated chief complaint of [SOB]. 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 She's presented to [place] ED on 06/17 with complaints of shortness of breath. The patient was in usual state of health until 2 weeks back when she had a viral illness with cold-like symptoms, cough, feeling rundown and fatigued and sleeping a lot. One week back patient went to her PCP Dr. Page, flu negative and was prescribed Mucinex, Robitussin and Z-Dominic. Patient states that her symptoms did not improve but got worse. She has been having unbearable cough and cannot bring up any phlegm. She feels congested, once or twice she did bring up some sputum which was light green in color. She has been sleeping most of the time during the day because she of fatigued. Patient reports having chest rib pain with deep breathing and cough, secondary to bouts of coughing. She also reports getting chills and diaphoresis which has been becoming more and more frequent since her illness started. Denies fever. The patient woke up today and felt like that she could not be she did her oxygen saturation which was up to 79%. She did a breathing treatment and which brought it out to 88% and decided to come to ED for further evaluation. Review of systems patient reports dizziness, lightheadedness, sinus tenderness, nausea and gagging. Patient reports sick contacts (nephew has flu, niece has croup). She did not get a flu shot never had pneumonia shot. She has never been intubated with the past. Of note patient was recently discharged from [facility] on 05/26 after being treated for acute hypoxic respiratory failure due to asthma versus COPD. She has had multiple admissions in the past for similar complaints roughly almost every month. She is currently on chronic steroid therapy prednisone 40 mg every day. Patient has an appointment at [place] [facility] for discussion of biopsy on July 10 to confirm cryptogenic pneumonia. On her last visit she was discharged on Bactrim 3 times a week for PCP prophylaxis considering chronic steroid therapy. She stopped taking Bactrim last week. Allergies/Medications Allergies: Coded Allergies: No Known Allergies (06/19/17) Home Med list Albuterol Sulfate (Proair Hfa) 90 MCG HFA.AER.AD 2 PUF INH Q4-6 PRN PRN RESPIRATORY (Reported) Budesonide/Formoterol Fumarate (Symbicort 160-4.5 Mcg Inhaler) 160 MCG-4.5 MCG/ ACTUATION HFA.AER.AD 2 PUF INH BID SOB (Reported) Guaifenesin 100 MG/5 ML LIQUID 10 ML PO Q4P PRN COUGH Guaifenesin/Dextromethorphan (Mucinex Dm ER 1,200-60 MG Tab) (Unknown Strength) TBMP.12HR (Unknown Dose) PO BID MUCUS/COUGH (Reported) Hydroxyzine HCl (hydrOXYzine HCl) 10 MG TABLET 10 MG PO DAILY PRN FOR INCREASED HEART RATE (Reported) Loratadine 10 MG TABLET 10 MG PO DAILY ASTHMA . Montelukast Sodium 10 MG TABLET 10 MG PO AT BEDTIME asthma . Oxycodone HCl 30 MG TABLET 1 TAB PO Q4H PRN PAIN (Reported) Paroxetine HCl 30 MG TABLET 2 TAB PO DAILY MENTAL HEALTH (Reported) Prednisone 20 MG TABLET 2 TAB PO DAILY SHORTNESS OF BREATH . Sulfamethoxazole/Trimethoprim (Sulfamethoxazole-Tmp Ds Tablet) 800 MG-160 MG TABLET 1 TAB PO Friday PCP PROPHYLAXIS (Reported) Tiotropium [place] (Spiriva) 18 MCG CAP.W.DEV 1 CAP INH DAILY ASTHMA ( Reported) Trazodone HCl 50 MG TABLET 3 TAB PO QPM SLEEP (Reported) Compliance With Home Meds: GOOD Past History Travel History Traveled to [place] past 21 day No Medical History Neurological: FIBROMYALGIA EENT: TMJ arthritis s/p jaw surgery at [facility] 2010 Cardiovascular: syncope (vasovagal(has had cardio eval)) Respiratory: asthma, bronchitis, pneumonia, CRYPTOGENIC ORGANIZING Gastrointestinal: constipation (IBS), irritable bowel syndrome Hepatic: NONE Renal: NONE Musculoskeletal: fibromyalgia Psychiatric: anxiety Endocrine: NONE Blood Disorders: NONE Cancer(s): NONE 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 FH: diabetes mellitus UNCLE-MATERNAL (BOOP). GRANDMOTHER-MATERNAL (CHF). Relation not specified for: FH: CAD (coronary artery disease) FH: HTN (hypertension) FH: ovarian cancer FH: uterine cancer Psychosocial History Where do you live? Home Who Do You Live With? parent Services at Home: None Primary Language: Greek Smoking Status: Never Smoked ETOH Use: denies use Illicit Drug Use: denies illicit drug use Functional Ability ADLs Independent: dressing, eating, toileting, bathing. Ambulation: independent IADLs Independent: shopping, housework, finances, food prep, telephone, transportation , medication admin. Review of Systems Review of Systems Constitutional: Reports: see HPI, chills, diaphoresis, malaise, weakness. Denies: fever. Cardiovascular: Reports: no symptoms. Respiratory: Reports: cough, short of breath, wheezing. Denies: hemoptysis, sputum production. GI: Reports: no symptoms. Genitourinary: Reports: no symptoms. Musculoskeletal: Reports: back pain. Skin: Reports: no symptoms. Neurological/Psychological: Reports: no symptoms. Exam & Diagnostic Data Last 24 Hrs of Vital Signs/I&O Vital Signs Date Time Temp Pulse Resp B/P B/P Pulse O2 O2 Flow FiO2 Mean Ox Delivery Rate 06/19 2231 98.5 85 19 121/72 97 Nasal 4.0L Cannula 06/19 2152 94 Nasal 4.0L Cannula 06/19 2035 Nasal 4.0L Cannula 06/19 2015 22 93 Nasal 4.0L Cannula 06/19 2004 120 30 128/81 79 Room Air Room Air Intake & Output 06/20 0800 06/20 0000 06/19 1600 Intake Total 0 Output Total Balance 0 Intake, Oral 0 Patient 170 lb Weight Physical Exam General Appearance Alert, Oriented X3, Cooperative, No Acute Distress HEENT Atraumatic, mild sinus tenderness can be 2/2 to fibromyalgia Neck Supple, No LAD Lymphatic Cervical nl Cardiovascular Normal S1, Normal S2, No Murmurs Lungs diffuse expiratory wheezes Abdomen Normal Bowel Sounds, Soft, No Tenderness, No Hepatospenomegaly Neurological Normal Speech Last 24 Hrs of Labs/Luke: Laboratory Tests 06/19/17 2315: Lactic Acid Cancelled 06/19/172034: Anion Gap 12, Estimated GFR > 60, BUN/Creatinine Ratio 14.3, Glucose 87, Lactic Acid 0.7, Calcium 9.4, Total Bilirubin 1.2, AST 20, ALT 25, Alkaline Phosphatase 116, Troponin I < 0.01, Total Protein 7.4, Albumin 4.4, Globulin 3.0, Albumin/ Globulin Ratio 1.5, Total Beta HCG NEGATIVE, CBC w Diff NO MAN DIFF REQ, RBC 4.82, MCV 78.3 L, MCH 25.3 L, MCHC 32.2 L, RDW 17.1 H, MPV 7.9, Gran % 66.6, Lymphocytes % 18.2 L, Monocytes % 5.2, Eosinophils % 9.5 H, Basophils % 0.5, Absolute Granulocytes 9.1 H, Absolute Lymphocytes 2.5, Absolute Monocytes 0.7 H, Absolute Eosinophils 1.3, Absolute Basophils 0.1 Microbiology 06/19 2034 BLOOD: Blood Culture - RECD 06/19 2034 BLOOD: Blood Culture - RECD 06/19 2029 NASOPHARYN: Influenza Virus A & B Rapid Smear - COMP Diagnostic Data EKG Results Sinus QTC 435 CXR Results IMPRESSION: Patchy hazy opacities at the lung bases are more conspicuous than on the prior study. Its unclear if this is technical or represents actual worsening of the airspace process present previously. Nonetheless, there is no dense focal consolidation seen. Prior studies given the history of cryptogenic organizing pneumonia. 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 She's presented to [place] ED on 06/17 with complaints of shortness of breath. -VS HR 120, RR 30, oxygen saturation 79% on room air -Pertinent labs WBC count 13.6, eosinophils 9.5, bicarbonate 32, flu negative -Chest x-ray findings dictated above -In ED at time of presentation patient was the setting of 79% and was put on 4 L to maintain oxygen saturation above 90%. She received ceftriaxone and azithromycin, Zofran, roxicodone and 125 mg of methylprednisone. 2 sets of blood cultures were drawn The patient is being admitted to general medicine floor and is being treated and evaluated for following conditions #Acute hypoxic respiratory failure multifactorial secondary to asthmatic exacerbation vs recurrent infections related to probable cryptogenic pneumonia versus allergic (peripheral eosinophilia) The patient is presenting with heart rate of 120, oxygen saturation of 79% on room air. She has diffuse wheezes on examination. She does have an elevated white count but that likely is secondary to chronic steroid therapy. Eosinophil count is 9.5 secondary to peripheral eosinophilia. Chest x-ray does not show any consolidation, but there was worsening of air space disease process. Patient remains afebrile which can be questioned in context of chronic steroids. -Monitor fever and WBC curve -TRC/ Duonebs -Oxygen supplementation to maintain oxygen saturation above 92% -Follow-up blood cultures -Sputum culture -Urine strep and Legionella antigen -Mucinex and Robitussin for cough -IV methylprednisone Q8 -Continue Spiriva and Symbicort -Continue singular and loratadine -Restart PCP prophylaxis with Bactrim M/W/F -Pulmonology consult in the morning with Dr. Verdugo -Monitor off antibiotics for now #Chronic medical conditions anxiety, fibromyalgia back pain, TMJ continue paroxetine, trazodone and oxycodone #FC/DVT prophylaxis with Lovenox/regular diet As Ranked By This Provider Problem List: 1. Asthma exacerbation 2. Cryptogenic organizing pneumonia Core Measures/Misc (02/09) Acute Coronary Syndrome ACS Diagnosis: No Congestive Heart Failure Congestive Heart Failure Diagnosis No Cerebrovascular Accident CVA/TIA Diagnosis: No VTE (View Protocol) VTE Risk Factors Immobility No Mechanical VTE Prophylaxis d/t N/A MechProphylax Ordered No VTE Pharm Prophylaxis d/t NA PharmProphylax ordered Sepsis (View protocol) Sepsis Present: No Earnest Cristina 06/20/17 0141: Resident Review Statement Resident Statement: discussed with internal controls manager Other Findings: 36-year-old woman with past medical history of mild COPD-asthma overlap syndrome , peripheral eosinophilia, presumable cryptogenic organizing pneumonia (no tissue diagnosis per patient wishes on chronic prednisone), 2 L of nocturnal oxygen at home, fibromyalgia, IBS-C, TMJ disorder, anxiety, multiple admissions in past due to hypoxic respiratory failure given her pulmonary issues, On PCP prophylaxis with Bactrim given chronic steroid use. She presents to ER with complaint of productive cough with greenish phlegm, intermittent chills and sweating, shortness of breath, rib pain due to persistent coughing for last 2 weeks and fatigue. She started having nausea and dry heaving today. Also complains of dizziness/lightheadedness. Positive sick contacts. She denies any vomiting, abdominal pain, diarrhea or constipation, urinary symptoms. She is scheduled to see a chief of safety and protection at [facility] [place] on July 10 for second opinion. Vitals on admission: Temperature 98.5, pulse 120, respiratory rate 30, blood pressure 128/81 and oxygen saturation 79% on room air. She was put on 4 L of oxygen via nasal cannula. Pertinent physical exam findings: Bilateral expiratory wheezes and crackles bilaterally. Tachycardia on heart auscultation. Pertinent labs: WBC count 13.6, eosinophils 9.5. Rapid flu negative Chest x-ray showed low lung volumes and patchy hazy opacity at the lung bases which is more conspicuous than on the prior study. No dense focal consolidation. No pleural effusion. In ER she was given respiratory treatment, IV steroids, Zofran, IV ceftriaxone and azithromycin. Problem list 1. Hypoxic respiratory failure secondary to underlying pulmonary disease and reported rotation incontinence pneumonia 2. Leukocytosis likely secondary to chronic steroid use PLAN - Admit on general medicine floor - Monitor vitals closely - Continue TRC nebs - Keep oxygen saturation more than 92% - Continue IV steroids - No Abx - Pulm consult in am - We will start PCP prophylaxis with Bactrim (MWF) given chronic steroid use - Pain management pathway - DVT prophylaxis - Full code Harish CHAPARRO, [facility] 06/20/17 0422: Attending MD Review Statement Attending Statement Attending MD Statement: examined this patient, discuss w/resident/PA/BUSHLER, agreed w/resident/PA/BUSHLER, reviewed images, amended to note Attending Assessment/Plan: 36 yo F nonsmoker with h/o asthma-COPD overlap on 2 L nocturnal O2, seasonal allergies, eosinophilia, 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 She reports flu like symptoms that started 2 weeks back, saw her PCP, did her flu swab that was negative, gave her Zpak with some relief. Today she fell asleep without her O2. When she woke up, she was dizzy, nauseous, short of breath, diaphoretic, checked her O2 sats ~ 78%, tried nebs and oxygen without relief so came to ER. Sick contacts++ (nerolly had croup, father/sister had flu). Of note, patient has also not been taking her PCP prophylaxis with bactrim for the past 2 weeks, she did not think she needed it anymore. She is due to seek a second opinion at the [facility] on Jul 10. Vitals: afebrile, HR 80-120, BP 100/60, sats 98% on 4 L --> 92% on 2L. Exam: AAO, diaphoretic, in mild distress due to nausea, dry mucous membranes, Neck supple, Chest b/l reduced air entry with expiratory wheeze++, Heart S1S2 regular, tachycardic. Labs: WBC 13.6 on steroids, eosinophils 9.5%, bicarb 32, lactic acid 1.2, trop neg. Flu swab negative. IgE is elevated 120 (Mar 2017). CXR: patchy hazy opacities at lung bases more conspicuous, no dense consolidation. PFT (2015): mild obstructive lung disease with reversible component, hyperinflation, airtrapping and resting desaturation. Echo (2017): EF 65-70% Assessment and plan: 1. Acute on chronic hypoxic respiratory failure 2. Asthma exacerbation with eosinophilia 3. Cryptogenic organizing pneumonia on chronic prednisone 4. Opiate dependence - 23 hour observation on general medicine - [facility] nebs - Sputum culture - IV solumedrol 40 Q8 for now - Patient received IV ceftriaxone and azithro in ER - Resume Bactrim three times a week for PCP prophylaxis while on steroids - No need for other antibiotics now. - Pulm consult Dr. Verdugo - Check urine tox screen DVT ppx Lovenox. Full code. Observation Initial Note - I have personally examined TERESA RODRIGEZ on 06/20/17 at 0422. The disposition of TERESA RODRIGEZ is uncertain at this time and before a determination can be made, she requires a period of observation for the following reasons [hypoxia, asthma exacerbation]
[2017-06-20] MEDS ORDERED: SULFAMETHOXAZO1 EAC1 PO (00:51)
[2017-06-20 03:05] VITALS: BP 92/70
--- NOTE | 2017-06-20 07:18 | PN-Observation ---
Pablo CHAPARRO,Idania 06/20/17 0718: Assessment/Plan Assessment: The patient is 36-year-old female with past medical history of persumable cryptogenic organizing pneumonia (not confirmed with biopsy), Mild COPD-asthma overlap syndrome and peripheral eosinophilia, on 2 L of nocturnal oxygen, allergic to dust, fibromyalgia, TMJ disorder, IBS and anxiety. She's presented to [place] ED on 06/17 with complaints of shortness of breath. Patient is awaiting second opinion at [facility] on June #Acute hypoxic respiratory failure multifactorial secondary to asthmatic exacerbation vs recurrent infections related to probable cryptogenic pneumonia versus allergic (peripheral eosinophilia) -Monitor fever and CBC -TRC/ Duonebs -Oxygen supplementation to maintain oxygen saturation above 92% -Follow-up blood cultures -Sputum culture -Urine strep and Legionella antigen -Mucinex and Robitussin for cough -IV methylprednisone Q8 -Continue Spiriva and Symbicort -Continue singular and loratadine -Restart PCP prophylaxis with Bactrim due to chronic steroid use -Monitor off antibiotics for now Full code Regular diet DVT prophylaxis with subcutaneous Lovenox Problem List: 1. Cryptogenic organizing pneumonia 2. Acute and chronic respiratory failure with hypoxia DVT/Prophylaxis: mechanical, pharmacological Subjective Follow-up For: 1. Asthma exacerbation 2. Cryptogenic organizing pneumonia Subjective: Patient was seen and examined at bedside, she complains of excessive sweating, cough, shortness of breath, severe nausea, denies chest pain, abdominal pain, vomiting or diarrhea Review of Systems Constitutional: Reports: diaphoresis, malaise, weakness. Cardiovascular: Denies: no symptoms. Respiratory: Reports: cough, short of breath, sputum production. Gastrointestinal: Denies: no symptoms. Genitourinary: Denies: no symptoms. Musculoskeletal: Denies: no symptoms. Skin: Denies: no symptoms. Objective Last 24 Hrs of Vital Signs/I&O Vital Signs Date Time Temp Pulse Resp B/P B/P Pulse O2 O2 Flow FiO2 Mean Ox Delivery Rate 06/20 1635 98.8 06/20 1600 Nasal 2.0L Cannula 06/20 1517 99.4 06/20 1508 99.4 06/20 1405 99.2 100 20 100/60 90 Nasal 2.0L Cannula 06/20 1221 Nasal 2.0L Cannula 06/20 0800 Nasal 2.0L Cannula 06/20 0305 98.6 83 20 92/70 92 Nasal 2.0L Cannula 06/20 0204 97.8 83 20 100/60 98 Nasal 4.0L Cannula 06/19 2231 98.5 85 19 121/72 97 Nasal 4.0L Cannula 06/19 2153 94 Nasal 4.0L Cannula 06/19 2035 Nasal 4.0L Cannula 06/19 2015 22 93 Nasal 4.0L Cannula 06/19 2004 120 30 128/81 79 Room Air Room Air Intake & Output 06/20 1600 06/20 0800 06/20 0000 Intake Total 350 120 0 Output Total Balance 350 120 0 Intake, IV 20 Intake, Oral 350 100 0 Patient 170 lb 170 lb Weight Physical Exam General Appearance: Alert, Oriented X3, Cooperative, No Acute Distress Skin: No Rashes, No Breakdown, No Significant Lesion HEENT: Atraumatic, PERRLA, EOMI, Mucous Membr. 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 Given Ceftriaxone and Azithromycin in ED along with Solumedrol. Mildly improved from overnight per patient. Plan - Continue as observation in general medicine - Pulmonary consult - Continue Solumedrol - Robitussin with codeine for cough suppression - Continue home medications - DVT PPx - Anticipated discharge tomorrow if improves
[2017-06-20 14:05] VITALS: BP 100/60
--- NOTE | 2017-06-20 14:44 | Cons- Pulmonary ---
General Information and HPI Consulting Request Date of Consult: 06/20/17 Requested By: Dyspnea Reason for Consult: Shortness of breath bronchitis Source of Information: patient Exam Limitations: no limitations History of Present Illness: 36 year old woman. History of asthma, peripheral eosinophilia. 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 She has been on chronic prednisone. Recently paused Bactrim. Awaiting second opinion at the [facility]. She remains hypoxemic on oxygen at home. CXR Patchy hazy opacities at the lung bases are more conspicuous than on the prior study. Its unclear if this is technical or represents actual worsening of the airspace process present previously. Nonetheless, there is no dense focal consolidation seen. Prior studies given the history of cryptogenic organizing pneumonia. eosinophilia Her IgE was elevated as high as 452 (last 120). She may qualify for Xolair therapy. She is currently on spiriva, paxil, claritin, proventil, trazadone, singulair, symbicort, bactrim DS, roxicodone Lovenox for DVT prophylaxis. IV solumedrol 40mg iv q8h No n/v/d/c. No cp. Dyspnea primarily on exertion, wheezing, coughing (dry). Occasional ONEILL, no joint pains or rashes. Allergies/Medications Allergies: Coded Allergies: No Known Allergies (06/19/17) Home Med List: Albuterol Sulfate (Proair Hfa) 90 MCG HFA.AER.AD 2 PUF INH Q4-6 PRN PRN RESPIRATORY (Reported) Budesonide/Formoterol Fumarate (Symbicort 160-4.5 Mcg Inhaler) 160 MCG-4.5 MCG/ ACTUATION HFA.AER.AD 2 PUF INH BID SOB (Reported) Guaifenesin/Dextromethorphan (Mucinex Dm ER 1,200-60 MG Tab) (Unknown Strength) TBMP.12HR (Unknown Dose) PO BID MUCUS/COUGH (Reported) Hydroxyzine HCl (hydrOXYzine HCl) 10 MG TABLET 10 MG PO DAILY PRN FOR INCREASED HEART RATE (Reported) Loratadine 10 MG TABLET 10 MG PO DAILY ASTHMA . Montelukast Sodium 10 MG TABLET 10 MG PO AT BEDTIME asthma . Oxycodone HCl 30 MG TABLET 1 TAB PO Q4H PRN PAIN (Reported) Paroxetine HCl 30 MG TABLET 2 TAB PO DAILY MENTAL HEALTH (Reported) Prednisone 20 MG TABLET 2 TAB PO DAILY SHORTNESS OF BREATH . Sulfamethoxazole/Trimethoprim (Sulfamethoxazole-Tmp Ds Tablet) 800 MG-160 MG TABLET 1 TAB PO Friday PCP PROPHYLAXIS (Reported) Tiotropium [place] (Spiriva) 18 MCG CAP.W.DEV 1 CAP INH DAILY ASTHMA ( Reported) Trazodone HCl 50 MG TABLET 3 TAB PO QPM SLEEP (Reported) Current Medications: Current Medications Sig/Nathan Start time Last Medication Dose Route Stop Time Status Admin Acetaminophen 650 MG Q8P PRN 06/20 0115 AC PO Albuterol Sulfate 3 ML TID 06/20 1100 AC 06/20 INH 1417 Albuterol Sulfate 3 ML ONCE ONE 06/190 DC 06/19 INH 06/19 2130 214 Azithromycin 500 MG ONCE ONE 06/19 2330 DC 06/19 Dextrose/Water 250 ML IV 06/20 0029 2356 Budesonide/ 2 PUF BID 06/20 1000 AC 06/20 Formoterol Fumarate INH 0813 Ceftriaxone Sodium 0 .STK-MED ONE 06/19 2345 DC .ROUTE Ceftriaxone Sodium 1,000 MG ONCE ONE 06/19 2330 DC 06/19 IV 06/19 2331 2356 Enoxaparin Sodium 40 MG DAILY 06/20 1000 AC 06/20 SC 0813 Guaifenesin 10 ML Q4P PRN 06/20 1400 AC PO Guaifenesin 10 ML Q4P PRN 06/20 1230 DC 06/20 PO 1221 Guaifenesin 600 MG Q12 06/20 1000 AC 06/20 PO 0812 Guaifenesin/Codeine 10 ML Q6P PRN 06/20 1400 CAN Phosphate PO Guaifenesin/Codeine 10 ML Q6P PRN 06/20 1215 DC Phosphate PO Ipratropium [place] 2.5 ML ONCE ONE 06/19 2130 DC 06/19 INH 06/19 2130 214 Loratadine 10 MG DAILY 06/20 1000 AC 06/20 PO 0813 Methylprednisolone 40 MG Q8 06/20 0600 AC 06/20 IV 0635 Methylprednisolone 0 .STK-MED ONE 06/19 2133 DC .ROUTE Methylprednisolone 125 MG ONCE ONE 06/19 2130 DC 06/19 IV 06/19 2130 213 Montelukast Sodium 10 MG AT BEDTIME 06/20 2200 AC PO Ondansetron HCl 4 MG Q6P PRN 06/20 0115 AC 06/20 IV 0251 Ondansetron HCl 4 MG ONCE ONE 06/19 2144 DC 06/19 IV 06/19 Ondansetron HCl 0 .STK-MED ONE 06/19 2140 DC .ROUTE Oxycodone HCl 30 MG Q4P PRN 06/20 0115 AC 06/20 PO 1214 Oxycodone HCl 0 .STK-MED ONE 06/19 2048 DC PO Oxycodone HCl 30 MG ONCE ONE 06/19 2030 DC 06/19 PO 06/19 Paroxetine HCl 60 MG DAILY 06/20 1000 AC 06/20 PO 0812 Tiotropium [place] 1 PUF DAILY 06/20 1000 AC 06/20 INH 0815 Trazodone HCl 150 MG QPM 06/20 220 AC PO Trimethoprim/ 1 TAB MoWeFr 06/20 1000 AC 06/20 Sulfamethoxazole PO 0813 Review of Systems Comments 18 point review of systems was performed and reviewed. Please see pertinent positives and pertinent negatives in the HPI. Otherwise ROS is negative. Past History Travel History Traveled to [place] past 21 day No Medical History Blood Transfusion Hx: No Neurological: FIBROMYALGIA EENT: TMJ arthritis s/p jaw surgery at [facility] 2010 Cardiovascular: syncope (vasovagal(has had cardio eval)) Respiratory: asthma, bronchitis, pneumonia, CRYPTOGENIC ORGANIZING PNA Gastrointestinal: constipation (IBS), irritable bowel syndrome Hepatic: NONE Renal: NONE Musculoskeletal: fibromyalgia Psychiatric: anxiety Endocrine: NONE Blood Disorders: NONE Cancer(s): NONE [employer]/Reproductive: miscarriage, 2016 Surgical History Surgical History: appendectomy, plantar wart removal jaw surgery for TMJ Family History Relations & Conditions If Any: FATHER (Asthma). FH: diabetes mellitus UNCLE-MATERNAL (BOOP). GRANDMOTHER-MATERNAL (CHF). Relation not specified for: FH: CAD (coronary artery disease) FH: HTN (hypertension) FH: ovarian cancer FH: uterine cancer Psychosocial History Where Do You Live? Home Who Do You Live With? parent Services at Home: None Primary Language: Belarusian Smoking Status: Never Smoked ETOH Use: denies use Illicit Drug Use: denies illicit drug use Functional Ability ADLs Independent: dressing, eating, toileting, bathing. Ambulation: independent IADLs Independent: shopping, housework, finances, food prep, telephone, transportation , medication admin. Exam & Diagnostic Data Last 24 Hrs of Vital Signs/I&O Vital Signs Date Time Temp Pulse Resp B/P B/P Pulse O2 O2 Flow FiO2 Mean Ox Delivery Rate 06/20 1405 99.2 100 20 100/60 90 Nasal 2.0L Cannula 06/20 1221 Nasal 2.0L Cannula 06/20 0800 Nasal 2.0L Cannula 06/20 0305 98.6 83 20 92/70 92 Nasal 2.0L Cannula 06/20 0204 97.8 83 20 100/60 98 Nasal 4.0L Cannula 06/19 2231 98.5 85 19 121/72 97 Nasal 4.0L Cannula 06/193 94 Nasal 4.0L Cannula 06/19 2035 Nasal 4.0L Cannula 06/19 93 Nasal 4.0L Cannula 06/19 2004 120 30 128/81 79 Room Air Room Air Intake & Output 06/20 1600 06/20 0800 06/20 0000 Intake Total 350 120 0 Output Total Balance 350 120 0 Intake, IV 20 Intake, Oral 350 100 0 Patient 170 lb 170 lb Weight Physical Exam Other Physical Findings: gen awake and alert heent ncat cvs s1, s2 lungs rhonchi scattered abd soft, elevated bmi ext without edema Last 48 Hrs of Labs/Luke: Laboratory Tests 06/19/172314: Lactic Acid Cancelled 06/19/172034: Anion Gap 12, Estimated GFR > 60, BUN/Creatinine Ratio 14.3, Glucose 87, Lactic Acid 0.7, Calcium 9.4, Total Bilirubin 1.2, AST 20, ALT 25, Alkaline Phosphatase 116, Troponin I < 0.01, Total Protein 7.4, Albumin 4.4, Globulin 3.0, Albumin/ Globulin Ratio 1.5, Total Beta HCG NEGATIVE, CBC w Diff NO MAN DIFF REQ, RBC 4.82, MCV 78.3 L, MCH 25.3 L, MCHC 32.2 L, RDW 17.1 H, MPV 7.9, Gran % 66.6, Lymphocytes % 18.2 L, Monocytes % 5.2, Eosinophils % 9.5 H, Basophils % 0.5, Absolute Granulocytes 9.1 H, Absolute Lymphocytes 2.5, Absolute Monocytes 0.7 H, Absolute Eosinophils 1.3, Absolute Basophils 0.1 Microbiology 06/19 2029 NASOPHARYN: Influenza Virus A & B Rapid Smear - COMP Assessment/Plan Impression/Plan: 36 year old woman. History of asthma, peripheral eosinophilia. 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 She has been on chronic prednisone. Recently paused Bactrim. Awaiting second opinion at the [facility]. She remains hypoxemic on oxygen at home. CXR Patchy hazy opacities at the lung bases are more conspicuous than on the prior study. Its unclear if this is technical or represents actual worsening of the airspace process present previously. Nonetheless, there is no dense focal consolidation seen. Prior studies given the history of cryptogenic organizing pneumonia. eosinophilia Her IgE was elevated as high as 452 (last 120). She may qualify for Xolair therapy. She is currently on spiriva, paxil, claritin, proventil, trazadone, singulair, symbicort, bactrim DS, roxicodone Lovenox for DVT prophylaxis. IV solumedrol 40mg iv q8h No n/v/d/c. No cp. Dyspnea primarily on exertion, wheezing, coughing (dry). Occasional ONEILL, no joint pains or rashes. Plan -cont solumedrol -bactrim for pcp prophylaxis given chronic steroid use -cont inhalers/trc/nebs -awaiting second opinion at [facility] [facility] June DVT prophylaxis at all times Consult Acknowledgment - Thank you for your consult request.
[2017-06-20] MEDS ORDERED: GUAIFENESI100 MG/5 M PO (17:10)
--- NOTE | 2017-06-20 17:11 | Patient Discharge Instructions ---
Discharge Instructions General Discharge Information You were seen/treated for: Acute hypoxic respiratory failure due to asthma exacerbation Special Instructions: 1-please follow-up with your PCP in 1 week of discharge 2-please follow-up with your cat skinner in 1 week of discharge Acute Coronary Syndrome Inclusion Criteria At DC or during hospital stay patient has or had the following: ACS DIAGNOSIS No Discharge Core Measures Meds if any: Prescribed or Continued at Discharge Meds if any: NOT Prescribed or Continued at Discharge Congestive Heart Failure Inclusion Criteria At DC or during hospital stay patient has or had the following: CHF DIAGNOSIS No Discharge Core Measures Meds if any: Prescribed or Continued at Discharge Meds if any: NOT Prescribed or Continued at Discharge Cerebrovascular accident Inclusion Criteria At DC or during hospital stay patient has or had the following: CVA/TIA Diagnosis No Discharge Core Measures Meds if any: Prescribed or Continued at Discharge Meds if any: NOT Prescribed or Continued at Discharge Venous thromboembolism Inclusion Criteria VTE Diagnosis No VTE Type NONE VTE Confirmed by (Test) NONE Discharge Core Measures - Per Current guidelines, there needs to be overlap - treatment for the first 5 days of Warfarin therapy. - If discharged on Warfarin prior to 5 days of - overlap therapy, the patient will need to be - assessed for post discharge needs including - *Post discharge parental anticoagulation - *Warfarin and/or parental anticoagulation education - *Follow up date to check INR post discharge At least 5 days overlap therapy as Inpatient No Meds if any: Prescribed or Continued at Discharge Note: Overlap Therapy is Warfarin and Anticoagulant Meds if any: NOT Prescribed or Continued at Discharge
[2017-06-20 21:55] VITALS: BP 116/70
[2017-06-20 21:56] VITALS: BP 116/70
[2017-06-21 06:00] VITALS: BP 112/68
--- NOTE | 2017-06-21 09:13 | PN-Observation ---
[facility] 0903: Observation Note Observation Note _ I have personally examined TERESA RODRIGEZ. her disposition is uncertain at this time. Before a determination can be made, she requires continued observation for the following reasons acute hypoxic respiratory failure.[]. 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 She's presented to [place] ED on 06/17 with complaints of shortness of breath. Patient is awaiting second opinion at [place] [facility] on June Acute on chronic hypoxic respiratory failure: -multifactorial secondary to asthmatic exacerbation vs recurrent infections related to probable cryptogenic pneumonia versus allergic (peripheral eosinophilia) -Oxygen supplementation to maintain oxygen saturation above 92% -Follow-up blood cultures -Sputum culture -Urine strep and Legionella antigen -Mucinex and Robitussin for cough -IV methylprednisone Q8 -Continue Spiriva and Symbicort -Continue singular and loratadine -Restart PCP prophylaxis with Bactrim due to chronic steroid use -Monitor off antibiotics for now Full code Regular diet DVT prophylaxis with subcutaneous Lovenox Problem List: 1. Asthma exacerbation in COPD 2. Cryptogenic organizing pneumonia Plan: Acute hypoxic respiratory failure: -multifactorial secondary to asthmatic exacerbation vs recurrent infections related to probable cryptogenic pneumonia versus allergic (peripheral eosinophilia) -Oxygen supplementation to maintain oxygen saturation above 92% -Follow-up blood cultures -Sputum culture -Urine strep and Legionella antigen -Mucinex and Robitussin for cough -IV methylprednisone Q8 -Continue Spiriva and Symbicort -Continue singular and loratadine -Restart PCP prophylaxis with Bactrim due to chronic steroid use -Monitor off antibiotics for now Full code Regular diet DVT prophylaxis with subcutaneous Lovenox Subjective Follow-up For: Acute on chronic hypoxic respiratory failure Asthma- COPD overlap Subjective: No overnight events. Patient remained afebrile overnight. seen and examined this morning. She is on 2 L of oxygen and maintaining saturation 91%. Patient reported dry cough and chest congestion. She denied any chest pain, palpitation , shortness of breath, abdominal pain, chills, fever and dysuria. Review of Systems Constitutional: Reports: no symptoms. EENTM: Reports: no symptoms. Cardiovascular: Reports: no symptoms. Respiratory: Reports: cough. Gastrointestinal: Reports: no symptoms. Genitourinary: Reports: no symptoms. Neurological/Psychological: Reports: no symptoms. Objective Last 24 Hrs of Vital Signs/I&O Vital Signs Date Time Temp Pulse Resp B/P B/P Pulse O2 O2 Flow FiO2 Mean Ox Delivery Rate 06/21 0600 97.9 67 20 112/68 91 Nasal 2.0L Cannula 06/21 0000 Nasal 2.0L Cannula 06/20 2156 98.4 72 20 116/70 93 06/20 2155 98.4 72 20 116/70 93 06/20 1635 98.8 06/20 1600 Nasal 2.0L Cannula 06/20 1517 99.4 06/20 1508 99.4 06/20 1405 99.2 100 20 100/60 90 Nasal 2.0L Cannula 06/20 1221 Nasal 2.0L Cannula Intake & Output 06/21 1600 06/21 0800 06/21 0000 Intake Total 120 700 Output Total 5 Balance 115 700 Intake, Oral 120 700 Output, 5 Drainage Physical Exam General Appearance: Alert, Oriented X3, Cooperative Skin Temp/Moisture Exam: Warm/Dry Sepsis Skin Exam (color): Normal for Ethnicity HEENT: Atraumatic, PERRLA, EOMI Neck: Supple Cardiovascular: Normal S1, Normal S2 Lungs: wheezing and crackles b/l Abdomen: Soft, No Tenderness Neurological: Normal Speech, Strength at 5/5 X4 Ext, Normal Tone, Sensation Intact Extremities: No Edema Stephan Belcher MD 06/21/17 1231: Addendum Addendum 36F PMH asthma-COPD overlap on 2 L nocturnal O2, seasonal allergies, eosinophilia, 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 Given Ceftriaxone and Azithromycin in ED along with Solumedrol. Mildly improved from overnight per patient. Plan - Continue as observation in general medicine - Pulmonary consult - Continue Solumedrol - Robitussin with codeine for cough suppression - Continue home medications - DVT PPx - Anticipated discharge tomorrow if improves
[2017-06-21 10:05] LABS: ABSOLUTE BASOPHIL COUNT 0 /CUMM (0.0-0.2); ABSOLUTE EOSINOPHIL COUNT 0 /CUMM (0.0-0.7); ABSOLUTE GRANULOCYTE CT 11.1 /CUMM (1.4-6.5); ABSOLUTE LYMPH COUNT 1.2 /CUMM (1.2-3.4); ABSOLUTE MONOCYTE COUNT 0.5 /CUMM (0.10-0.60); BASOPHIL % 0 % (0.0-2.0); EOSINOPHIL % 0 % (0-5); GRANULOCYTE % 87.3 % (42.2-75.2); HEMATOCRIT 34.9 % (37-47); MEAN CORPUSCULAR HGB 25.7 PG (27.0-31.0); MEAN CORPUSCULAR HGB CONC 32.5 G/DL (33.0-37.0); MEAN CORPUSCULAR VOLUME 79.2 FL (81.0-99.0); MEAN PLATELET VOLUME 8.9 FL (7.4-10.4); PLATELET COUNT 332 /CUMM (130-400); RBC DISTRIBUTION WIDTH 17.1 % (11.5-14.5); RED BLOOD CELL CT 4.41 /CUMM (4.20-5.40); WHITE BLOOD CELL COUNT 12.7 /CUMM (4.8-10.8)
--- NOTE | 2017-06-21 10:41 | PN- Pulmonary ---
Subjective HPI/Critical Care Issues: Patient feels weak and concern about going home as to family members have an influenza Objective Current Medications: Current Medications Sig/Nathan Start time Last Medication Dose Route Stop Time Status Admin Acetaminophen 500 MG Q6P PRN 06/20 1515 AC PO Acetaminophen 650 MG Q8P PRN 06/20 0115 AC 06/20 PO 1517 Albuterol Sulfate 3 ML TID 06/20 1100 AC 06/20 INH 1417 Budesonide/ 2 PUF BID 06/20 1000 AC 06/21 Formoterol Fumarate INH 0941 Enoxaparin Sodium 40 MG DAILY 06/20 1000 AC 06/21 SC 0941 Guaifenesin 10 ML Q4P PRN 06/20 1400 AC 06/20 PO 1300 Guaifenesin 10 ML Q4P PRN 06/20 1230 DC 06/20 PO 1221 Guaifenesin 600 MG Q12 06/20 1000 AC 06/21 PO 0941 Guaifenesin/Codeine 10 ML Q6P PRN 06/20 1400 CAN Phosphate PO Guaifenesin/Codeine 10 ML Q6P PRN 06/20 1215 DC Phosphate PO Loratadine 10 MG DAILY 06/20 1000 AC 06/21 PO 0941 Methylprednisolone 40 MG Q8 06/20 0600 AC 06/21 IV 0555 Montelukast Sodium 10 MG AT BEDTIME 06/20 2200 AC 06/20 PO 2030 Ondansetron HCl 4 MG Q6P PRN 06/20 0115 AC 06/20 IV 2035 Oxycodone HCl 30 MG Q4P PRN 06/20 0115 AC 06/21 PO 0940 Paroxetine HCl 60 MG DAILY 06/20 1000 AC 06/21 PO 0941 Tiotropium [place] 1 PUF DAILY 06/20 1000 AC 06/21 INH 0941 Trazodone HCl 150 MG QPM 06/20 2200 AC 06/20 PO 2029 Trimethoprim/ 1 TAB MoWeFr 06/20 1000 AC 06/20 Sulfamethoxazole PO 0813 Vital Signs & I&O Last 24 Hrs of Vitals and I&O: Vital Signs Date Time Temp Pulse Resp B/P B/P Pulse O2 O2 Flow FiO2 Mean Ox Delivery Rate 06/21 0600 97.9 67 20 112/68 91 Nasal 2.0L Cannula 06/21 0000 Nasal 2.0L Cannula 06/20 2155 98.4 72 20 116/70 93 06/20 2155 98.4 72 20 116/70 93 06/20 1635 98.8 06/20 1600 Nasal 2.0L Cannula 06/20 1517 99.4 06/20 1508 99.4 06/20 1405 99.2 100 20 100/60 90 Nasal 2.0L Cannula 06/20 1221 Nasal 2.0L Cannula Intake & Output 06/21 1600 06/21 0800 06/21 0000 Intake Total 120 700 Output Total 5 Balance 115 700 Intake, Oral 120 700 Output, 5 Drainage Oxygen saturation 2 L 91% exam for chest shows occasional crackles there are no wheezes cardiac exam shows a regular S1 and S2 without murmurs Impression/Plan Impression/Plan Impression/Plan: 36-year-old woman with occult interstitial lung disease admitted with increasing shortness of breath flu negative Recommendations: Continue current medical regimen. Assess saturations with ambulation. Follow- up with Dr. Verdugo post discharge
[2017-06-21 14:09] VITALS: BP 120/82
[2017-06-21 22:47] VITALS: BP 116/62
[2017-06-22 06:20] VITALS: BP 112/78
[2017-06-22 09:25] LABS: ABSOLUTE BASOPHIL COUNT 0 /CUMM (0.0-0.2); ABSOLUTE EOSINOPHIL COUNT 0 /CUMM (0.0-0.7); ABSOLUTE LYMPH COUNT 0.9 /CUMM (1.2-3.4); ABSOLUTE MONOCYTE COUNT 0.4 /CUMM (0.10-0.60); BASOPHIL % 0 % (0.0-2.0); EOSINOPHIL % 0 % (0-5); HEMATOCRIT 36.3 % (37-47); MEAN CORPUSCULAR HGB 25.4 PG (27.0-31.0); MEAN CORPUSCULAR HGB CONC 31.8 G/DL (33.0-37.0); MEAN CORPUSCULAR VOLUME 79.8 FL (81.0-99.0); MEAN PLATELET VOLUME 8.9 FL (7.4-10.4); PLATELET COUNT 342 /CUMM (130-400); RBC DISTRIBUTION WIDTH 17.4 % (11.5-14.5); RED BLOOD CELL CT 4.54 /CUMM (4.20-5.40); WHITE BLOOD CELL COUNT 12.3 /CUMM (4.8-10.8)
--- NOTE | 2017-06-22 10:39 | PN- Pulmonary ---
Subjective HPI/Critical Care Issues: Patient continues to complain of being weak Objective Current Medications: Current Medications Sig/Nathan Start time Last Medication Dose Route Stop Time Status Admin Acetaminophen 500 MG Q6P PRN 06/20 1515 AC PO Acetaminophen 650 MG Q8P PRN 06/20 0115 AC 06/20 PO 1517 Albuterol Sulfate 3 ML TID 06/20 1100 AC 06/21 INH 1923 Budesonide/ 2 PUF BID 06/20 1000 AC 06/22 Formoterol Fumarate INH 1008 Enoxaparin Sodium 40 MG DAILY 06/20 1000 AC 06/22 SC 1007 Guaifenesin 10 ML Q4P PRN 06/20 1400 DC 06/20 PO 1300 Guaifenesin 600 MG Q12 06/20 1000 AC 06/22 PO 1008 Guaifenesin/Codeine 10 ML Q6P PRN 06/21 1200 AC 06/21 Phosphate PO 1416 Loratadine 10 MG DAILY 06/20 1000 AC 06/22 PO 1008 Methylprednisolone 40 MG Q8 06/20 0600 AC 06/22 IV 0549 Montelukast Sodium 10 MG AT BEDTIME 06/20 2200 AC 06/21 PO 2114 Ondansetron HCl 4 MG .STK-MED ONE 06/21 1415 DC IM 06/21 1416 Ondansetron HCl 4 MG Q6P PRN 06/20 0115 AC 06/21 IV 1416 Oxycodone HCl 30 MG .STK-MED ONE 06/22 0026 DC PO 06/22 0027 Oxycodone HCl 30 MG Q4P PRN 06/20 0115 AC 06/22 PO 1010 Paroxetine HCl 60 MG DAILY 06/20 1000 AC 06/22 PO 1007 Tiotropium [place] 1 PUF DAILY 06/20 1000 AC 06/22 INH 1008 Trazodone HCl 150 MG QPM 06/20 2200 AC 06/21 PO 2114 Trimethoprim/ 1 TAB MoWeFr 06/20 1000 AC 06/20 Sulfamethoxazole PO 0813 Vital Signs & I&O Last 24 Hrs of Vitals and I&O: Vital Signs Date Time Temp Pulse Resp B/P B/P Pulse O2 O2 Flow FiO2 Mean Ox Delivery Rate 06/22 0620 98.5 60 18 112/78 92 Nasal Cannula 06/22 0000 Nasal 3.0L Cannula 06/21 2246 97.7 69 20 116/62 92 Nasal 2.0L Cannula 06/21 1925 88 Nasal 2.0L Cannula 06/21 1600 Nasal 2.0L Cannula 06/21 1409 98.4 74 20 120/82 91 Intake & Output 06/22 1600 06/22 0800 06/22 0000 Intake Total 220 120 Output Total Balance 220 120 Intake, IV 20 20 Intake, Oral 200 100 Oxygen increased to 3 L saturation 92% exam for chest shows scattered crackles cardiac exam shows regular S1 and S2 without murmurs Impression/Plan Impression/Plan Impression/Plan: 36-year-old woman with occult interstitial lung disease admitted with increasing shortness of breath flu negative. Respiratory status is unchanged with persistent dyspnea Recommendations: Continue current medical regimen. Assess saturations with ambulation. No new pulmonary suggestions
[2017-06-22] MEDS ORDERED: ZITHROMAX250 M2 PO (11:24)
[2017-06-22] MEDS ORDERED: PREDNISONE10 M2 PO (11:24)
[2017-06-22 11:45] LABS: GRANULOCYTE % 89.3 % (42.2-75.2)
--- NOTE | 2017-06-22 13:36 | PN- Att Addend ---
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 Given Ceftriaxone and Azithromycin in ED along with Solumedrol. Mildly improved from overnight per patient. Plan - Stable for discharge home - Outpatient pulmonary follow up - Prednisone taper - Complete Azithromycin - Robitussin with codeine for cough suppression - Continue home medications
[2017-06-22 15:12] VITALS: BP 130/68
== END 2017-06-22 15:45 | disposition home health service (06) ==
LOC: ERH 20:02 → 2NA 06-20 00:29 → ERHI 06-20 00:29 → ENRESERV 06-20 01:55 → 2NA 06-20 02:44 → ENPENDDIS 06-22 10:59 → ENTRNSPT 06-22 15:41 → 2NA 06-22 15:45 → CMPTRNSPT 06-22 15:52
PROVIDERS: Physician Assistant Medical; Student in an Organized Health Care Education/Training Program
DX: J96.01 Acute respiratory failure with hypoxia (principal); Z79.52 Long term (current) use of systemic steroids; F11.20 Opioid dependence, uncomplicated; D72.1 Eosinophilia; Z99.81 Dependence on supplemental oxygen; M79.7 Fibromyalgia; K58.1 Irritable bowel syndrome with constipation; F41.9 Anxiety disorder, unspecified
CPT/HCPCS: 1263; 1328; 1530; 36415; 71045; 80307; 82436; 87040; 87449; 87450; 87804; 87804-59; 93005; 93010; 96372; 96374; 96375; G0378; J0456; J0696; J1650; J2405; J2920; J2930; J3490; J7060

== ENCOUNTER 2017-07-17 11:36 | Inpatient (IN) | payer OTHER, MEDICARE ==
[~2017-07-17] VITALS: Ht 157.5 cm; Wt 79.4 kg
[~2017-07-17 11:36] MED LIST changes: +GUAIFENESI100 MG/5 M PO; +MUCINEX DM ER1 EACH PO; +ZITHROMAX250 M2 PO
--- NOTE | 2017-07-17 12:17 | ED DYSPNEA/ASTHMA COMPLAINT ---
History of Present Illness General Chief Complaint: Dyspnea (COPD, CHF, Other) Stated Complaint: DYSPNEA, WHEEZING Source: patient Exam Limitations: no limitations Vital Signs & Intake/Output Vital Signs & Intake/Output Vital Signs Date Time Temp Pulse Resp B/P B/P Pulse O2 O2 Flow FiO2 Mean Ox Delivery Rate 07/17 1306 20 98 Aerosol 8L Mask 07/17 1304 90 Room Air 07/17 1241 95 Nasal 3.0L Cannula 07/17 1151 93 Nasal 3.0L Cannula 07/17 1137 96.4 120 20 135/93 90 Room Air Allergies Coded Allergies: No Known Allergies (06/19/17) Reconcile Medications Albuterol Sulfate (Proair Hfa) 90 MCG HFA.AER.AD 2 PUF INH Q4-6 PRN PRN RESPIRATORY (Reported) Budesonide/Formoterol Fumarate (Symbicort 160-4.5 Mcg Inhaler) 160 MCG-4.5 MCG/ ACTUATION HFA.AER.AD 2 PUF INH BID SOB (Reported) Guaifenesin 100 MG/5 ML LIQUID 10 ML PO Q4P PRN COUGH Guaifenesin/Dextromethorphan (Mucinex Dm ER 1,200-60 MG Tab) (Unknown Strength) TBMP.12HR (Unknown Dose) PO BID MUCUS/COUGH (Reported) Hydroxyzine HCl (hydrOXYzine HCl) 10 MG TABLET 10 MG PO DAILY PRN FOR INCREASED HEART RATE (Reported) Loratadine 10 MG TABLET 10 MG PO DAILY ASTHMA . Montelukast Sodium 10 MG TABLET 10 MG PO AT BEDTIME asthma . Oxycodone HCl 30 MG TABLET 1 TAB PO Q4H PRN PAIN (Reported) Paroxetine HCl 30 MG TABLET 2 TAB PO DAILY MENTAL HEALTH (Reported) Tiotropium Willard (Spiriva) 18 MCG CAP.W.DEV 1 CAP INH DAILY ASTHMA ( Reported) Trazodone HCl 50 MG TABLET 3 TAB PO QPM SLEEP (Reported) Triage Note: PT TO ED C/O SOB WITH WHEEZING. H/O ASTHMA, BRONCHITIS, PNA. USED NEBS AND INHALERS AT HOME WITH NO RELIEF. AUDIBLE WHEEZES HEARD. RA SATS 90%. PT TAKEN TO ROOM 8 VIA W/C. Triage Nurses Notes Reviewed? 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 FH: diabetes mellitus UNCLE-MATERNAL (BOOP). GRANDMOTHER-MATERNAL (CHF). Relation not specified for: FH: CAD (coronary artery disease) FH: HTN (hypertension) FH: ovarian cancer FH: uterine cancer Hx Contributory? No Review of Systems Review of Systems Constitutional: Reports: no symptoms. EENTM: Reports: no symptoms. Respiratory: Reports: see HPI, cough, short of breath. Cardiovascular: Reports: no symptoms. GI: Reports: no symptoms. Genitourinary: Reports: no symptoms. Musculoskeletal: Reports: no symptoms. Skin: Reports: no symptoms. Neurological/Psychological: Reports: no symptoms. Hematologic/Endocrine: Reports: no symptoms. Immunologic/Allergic: Reports: no symptoms. All Other Systems: Reviewed and Negative Physical Exam Physical Exam General Appearance: no apparent distress, alert, comfortable Head: atraumatic Eyes: Bilateral: normal appearance, PERRL. Ears, Nose, Throat: normal pharynx Neck: normal inspection Respiratory: no respiratory distress, wheezing Cardiovascular: tachycardia Peripheral Pulses: 2+ radial (R) Extremities: normal inspection Skin: intact, normal color, warm/dry Core Measures ACS in differential dx? No CVA/TIA Diagnosis No Sepsis Present: No Sepsis Focused Exam Completed? No Progress Differential Diagnosis: asthma, AMI, bronchitis, costochondritis, CHF, COPD, musculoskeletal pain, pericarditis, pulmonary embolism, pneumonia, pneumothorax, unstable angina Plan of Care: Orders Procedure Date/time Status Regular Diet 07/17 D Active RAPID VIRAL INFLUENZA A 07/17 1338 Active TROPONIN LEVEL 07/17 1338 Complete HUMAN BETA HCG SCREEN 07/17 1338 Complete COMPREHENSIVE METABOLIC PANEL 07/17 1338 Complete CBC WITHOUT DIFFERENTIAL 07/17 1338 Complete EKG 07/17 1338 Active Current Medications Sig/Nathan Start time Last Medication Dose Stop Time Status Admin Magnesium Sulfate 1 GM ONCE ONE 07/17 1230 AC 07/17 (Mag Sulfate in D5) 07/17 1629 1302 Dextrose/Water 100 ML (D5W) Laboratory Tests 07/17/17 1349: Anion Gap 13, Estimated GFR > 60, BUN/Creatinine Ratio 12.5, Glucose 148 H, Calcium 9.3, Total Bilirubin 0.6, AST 20, ALT 30, Alkaline Phosphatase 87, Troponin I < 0.01, Total Protein 6.4, Albumin 3.8, Globulin 2.6, Albumin/ Globulin Ratio 1.5, Total Beta HCG NEGATIVE, CBC w Diff NO MAN DIFF REQ, RBC 4.53, MCV 78.1 L, MCH 25.7 L, MCHC 32.9 L, RDW 16.1 H, MPV 8.0, Gran % 55.9, Lymphocytes % 22.2, Monocytes % 7.3, Eosinophils % 14.1 H, Basophils % 0.5, Absolute Granulocytes 4.9, Absolute Lymphocytes 1.9, Absolute Monocytes 0.6, Absolute Eosinophils 1.2, Absolute Basophils 0 Microbiology 07/17 1338 NASOPHARYN: Influenza Virus A & B Rapid Smear - ORD Patient on initial examination was in no respiratory distress 2 L of nasal cannula was administered 95% room air persistent wheezing was noted low-flow one hour treatment of albuterol will be administered. After nebulizer treatments and steroids was administered patient still has no symptoms of relief of wheezing Patient has failed outpatient treatment prior to arrival Diagnostic Imaging: Viewed by Me: Radiology Read. CXR Impression: SEE COMMENTS Initial ED EK BPM,NSR Comments: PATIENT: TERESA RODRIGEZ PRESENT AGE: 36 PATIENT ACCOUNT NO: [id number] : 81 LOCATION: [facility] ORDERING PHYSICIAN: Binh COSBY SERVICE DATE: 07/17/17 EXAM TYPE: RAD - XRY-CHEST XRAY, TWO VIEWS EXAMINATION: XR CHEST CLINICAL INFORMATION: Wheezing and shortness of breath COMPARISON: Multiple chest x-rays most recent prior dated 06/19/2017 TECHNIQUE: 2 views of the chest were obtained. FINDINGS: Stable cardiomediastinal silhouette. Mild prominence of the bronchial markings with peribronchial cuffing right lower lung seen on the previous examination compatible with reactive airway disease or bronchitis/bronchiolitis. No acute airspace disease. No evidence of pleural effusion. Slightly improved aeration noted in the right lateral base. IMPRESSION: Reactive airway disease or superimposed bronchitis/bronchiolitis right lower lung with no significant interval change. DICTATED BY: Valentina Vo MD DATE/TIME DICTATED:07/17/171318 [employer] ERECTOR:NABRO DATE/TIME TRANSCRIBED:07/17/171318 Departure Departure Disposition: STILL A PATIENT Condition: Stable Clinical Impression Primary Impression: Asthma exacerbation Secondary Impressions: Bronchitis Referrals: Socrates Ramirez MD (PCP/Family) Departure Forms: Customer Survey General Discharge Information Admission Note Spoke With: Gumaro Garces MD Documentation of Exam: Documentation of any treatments & extenuating circumstances including Concerns Regarding Discharge (functional status, medication knowledge or non-compliance, living conditions, etc.) that warrant an admission rather than observation: [ Patient requires repeat nebulizer treatments IV steroids pulmonary consultation nasal cannula oxygen supplementation antibiotics outpatient treatment would be medically harmful due to prior to arrival failed outpatient treatment] Critical Care Note Critical Care Note Critical Care Time: 30-74 min
--- NOTE | 2017-07-17 13:24 | RADIOLOGY REPORT ---
EXAMINATION: XR CHEST CLINICAL INFORMATION: Wheezing and shortness of breath COMPARISON: Multiple chest x-rays most recent prior dated 06/19/2017 TECHNIQUE: 2 views of the chest were obtained. FINDINGS: Stable cardiomediastinal silhouette. Mild prominence of the bronchial markings with peribronchial cuffing right lower lung seen on the previous examination compatible with reactive airway disease or bronchitis/bronchiolitis. No acute airspace disease. No evidence of pleural effusion. Slightly improved aeration noted in the right lateral base. IMPRESSION: Reactive airway disease or superimposed bronchitis/bronchiolitis right lower lung with no significant interval change.
[2017-07-17 14:06] LABS: ABSOLUTE BASOPHIL COUNT 0 /CUMM (0.0-0.2); ABSOLUTE EOSINOPHIL COUNT 1.2 /CUMM (0.0-0.7); ABSOLUTE GRANULOCYTE CT 4.9 /CUMM (1.4-6.5); ABSOLUTE LYMPH COUNT 1.9 /CUMM (1.2-3.4); ABSOLUTE MONOCYTE COUNT 0.6 /CUMM (0.10-0.60); BASOPHIL % 0.5 % (0.0-2.0); EOSINOPHIL % 14.1 % (0-5); GRANULOCYTE % 55.9 % (42.2-75.2); HEMATOCRIT 35.4 % (37-47); MEAN CORPUSCULAR HGB 25.7 PG (27.0-31.0); MEAN CORPUSCULAR HGB CONC 32.9 G/DL (33.0-37.0); MEAN CORPUSCULAR VOLUME 78.1 FL (81.0-99.0); PLATELET COUNT 308 /CUMM (130-400); RBC DISTRIBUTION WIDTH 16.1 % (11.5-14.5); RED BLOOD CELL CT 4.53 /CUMM (4.20-5.40); WHITE BLOOD CELL COUNT 8.7 /CUMM (4.8-10.8)
--- NOTE | 2017-07-17 16:20 | History & Physical ---
Selvin Ann MD 07/17/17 5967: General Information and HPI MD Statement: I have seen and personally examined TERESA RODRIGEZ and documented this H&P. The patient is a 36 year old F who presented with a patient stated chief complaint of dyspnea and hypoxia Source of Information: patient, old records Exam Limitations: no limitations History of Present Illness: 36 year old female with past medical history significant for asthma/COPD, peripheral eosinophilia, and presumptive diagnosis of cryptogenic organizing pneumonia based on symptoms and radiographic findings without biopsy confirmation with multiple admissions over the past six months with dyspnea, wheezing, and acute hypoxic respiratory failure presents with similiar complaints of an upper respiratory infection, chest tightness, and hypoxia at home not responsive to her inhalers and nebulized albuterol. She has been on chronic prednisone for years, currently 40mg daily. She has been using nocturnal 2L but with her recent symptoms of worsening cough, congestion, sinus pressure, wheezing, cough productive of green sputum, chest tightness and dyspnea, she has been using oxygen continuously at 2L for the past two days. She denies fevers and chills and states she has had some post tussive nausea and dry heaving. She is also complaining of significant pleuritic chest and back pain worse with coughing and deep inspiration. She reportedly had a referral recently from Dr. Verdugo to a timber feller at [place] who recommended pulmonary function tests, bronchoscopy, possible transbronchial biopsy, and polysomnography for obstructive sleep apnea. She also has gain 40-50 pounds in the past six months from chronic steroids. She reports that her oxygen saturations were 82% on 2L supplemental oxygen at rest at home and that she felt like she was in bronchospasm. On arrival, according to the ED notes the patient was not in significant respiratory distress, room air SpO2% was 90% and 95% on 2L after nebulized albuterol treatments. Allergies/Medications Allergies: Coded Allergies: No Known Allergies (06/19/17) Home Med list Albuterol Sulfate (Proair Hfa) 90 MCG HFA.AER.AD 2 PUF INH Q4-6 PRN PRN RESPIRATORY (Reported) Budesonide/Formoterol Fumarate (Symbicort 160-4.5 Mcg Inhaler) 160 MCG-4.5 MCG/ ACTUATION HFA.AER.AD 2 PUF INH BID SOB (Reported) Guaifenesin 100 MG/5 ML LIQUID 10 ML PO Q4P PRN COUGH Guaifenesin/Dextromethorphan (Mucinex Dm ER 1,200-60 MG Tab) (Unknown Strength) TBMP.12HR (Unknown Dose) PO BID MUCUS/COUGH (Reported) Hydroxyzine HCl (hydrOXYzine HCl) 10 MG TABLET 10 MG PO DAILY PRN FOR INCREASED HEART RATE (Reported) Loratadine 10 MG TABLET 10 MG PO DAILY ASTHMA . Montelukast Sodium 10 MG TABLET 10 MG PO AT BEDTIME asthma . Oxycodone HCl 30 MG TABLET 1 TAB PO Q4H PRN PAIN (Reported) Paroxetine HCl 30 MG TABLET 2 TAB PO DAILY MENTAL HEALTH (Reported) Tiotropium Harmony (Spiriva) 18 MCG CAP.W.DEV 1 CAP INH DAILY ASTHMA ( Reported) Trazodone HCl 50 MG TABLET 3 TAB PO QPM SLEEP (Reported) Compliance With Home Meds: GOOD Past History Travel History Traveled to [facility] past 21 day No Medical History Neurological: FIBROMYALGIA EENT: TMJ arthritis s/p jaw surgery at [facility] 2010 Cardiovascular: syncope (vasovagal(has had cardio eval)) Respiratory: asthma, bronchitis, pneumonia, CRYPTOGENIC ORGANIZING PNA Gastrointestinal: constipation (IBS), irritable bowel syndrome Hepatic: NONE Renal: NONE Musculoskeletal: fibromyalgia Psychiatric: anxiety Endocrine: NONE Blood Disorders: NONE Cancer(s): NONE 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 FH: diabetes mellitus UNCLE-MATERNAL (BOOP). GRANDMOTHER-MATERNAL (CHF). Relation not specified for: FH: CAD (coronary artery disease) FH: HTN (hypertension) FH: ovarian cancer FH: uterine cancer Psychosocial History Who Do You Live With? parent Services at Home: None Primary Language: Slovenian ETOH Use: denies use Illicit Drug Use: denies illicit drug use Functional Ability ADLs Independent: dressing, eating, toileting, bathing. Ambulation: independent IADLs Independent: shopping, housework, finances, food prep, telephone, transportation , medication admin. Review of Systems Review of Systems Constitutional: Denies: chills, fever. EENTM: Reports: nasal congestion. Cardiovascular: Reports: chest pain. Denies: edema, palpitations, peripheral edema, syncope. Respiratory: Reports: cough, short of breath, sputum production, wheezing. GI: Denies: abdominal pain, diarrhea, nausea, vomiting. Genitourinary: Denies: dysuria, frequency. Musculoskeletal: Reports: back pain. Skin: Reports: no symptoms. Neurological/Psychological: Reports: anxiety. Hematologic/Endocrine: Reports: no symptoms. Immunologic/Allergic: Reports: no symptoms. All Other Systems: Reviewed and Negative Exam & Diagnostic Data Last 24 Hrs of Vital Signs/I&O Vital Signs Date Time Temp Pulse Resp B/P B/P Pulse O2 O2 Flow FiO2 Mean Ox Delivery Rate 07/17 2128 Nasal 3.0L Cannula 07/17 2055 Nasal 3.0L Cannula 07/17 2013 97.4 84 20 114/70 97 Nasal 3.0L Cannula 07/17 1828 96.2 74 20 118/66 97 Nasal 3.0L Cannula 07/17 1517 98.3 94 20 112/80 98 Nasal 3.0L Cannula 07/17 1306 20 98 Aerosol 8L Mask 07/17 1304 90 Room Air 07/17 1241 95 Nasal 3.0L Cannula 07/17 1151 93 Nasal 3.0L Cannula 07/17 1137 96.4 120 20 135/93 90 Room Air Intake & Output 07/17 1600 07/17 0800 07/17 0000 Intake Total 100 Output Total Balance 100 Intake, IV 100 Patient 79.379 kg Weight Weight Reported by Patient Measurement Method Physical Exam General Appearance Alert, Oriented X3, Cooperative, No Acute Distress, obese Cardiovascular Regular Rate, Normal S1, Normal S2, No Murmurs Lungs diminished but clear no audible wheezing or rhonchi Abdomen Normal Bowel Sounds, Soft, No Tenderness, No Masses Extremities No Clubbing, No Cyanosis, Normal Pulses, trace pedal edema Last 24 Hrs of Labs/Luke: Laboratory Tests 07/17/17 1349: Anion Gap 13, Estimated GFR > 60, BUN/Creatinine Ratio 12.5, Glucose 148 H, Calcium 9.3, Iron 17 L, TIBC 342, Ferritin 27.8, Total Bilirubin 0.6, AST 20, ALT 30, Alkaline Phosphatase 87, Troponin I < 0.01, Total Protein 6.4, Albumin 3.8, Globulin 2.6, Albumin/Globulin Ratio 1.5, Total Beta HCG NEGATIVE, CBC w Diff NO MAN DIFF REQ, RBC 4.53, MCV 78.1 L, MCH 25.7 L, MCHC 32.9 L, RDW 16.1 H, MPV 8.0, Gran % 55.9, Lymphocytes % 22.2, Monocytes % 7.3, Eosinophils % 14.1 H, Basophils % 0.5, Absolute Granulocytes 4.9, Absolute Lymphocytes 1.9, Absolute Monocytes 0.6, Absolute Eosinophils 1.2, Absolute Basophils 0 Microbiology 07/17 1729 NASOPHARYN: Influenza Virus A & B Rapid Smear - COMP Diagnostic Data CXR Results Stable cardiomediastinal silhouette. Mild prominence of the bronchial markings with peribronchial cuffing right lower lung seen on the previous examination compatible with reactive airway disease or bronchitis/bronchiolitis. No acute airspace disease. No evidence of pleural effusion. Slightly improved aeration noted in the right lateral base. Assessment/Plan Assessment: 36 year old female with PMH asthma/COPD, peripheral eosinophilia, cryptogenic organizing pneumonia without biopsy confirmation presents with complaints of recent URI, productive cough, and hypoxia despite supplemental oxygen not responsive to her inhalers and nebulized albuterol. 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 Acute and chronic respiratory failure with hypoxia 2. Cryptogenic organizing pneumonia 3. Asthma exacerbation in COPD 4. Bronchitis Core Measures/Misc (02/09) Acute Coronary Syndrome ACS Diagnosis: No Congestive Heart Failure Congestive Heart Failure Diagnosis No Cerebrovascular Accident CVA/TIA Diagnosis: No VTE (View Protocol) VTE Risk Factors Age>40 No Mechanical VTE Prophylaxis d/t N/A MechProphylax Ordered No VTE Pharm Prophylaxis d/t NA PharmProphylax ordered Sepsis (View protocol) Sepsis Present: No Dez CHAPARROSheridanfernanda 07/17/17 1635: Attending Review Statement Attending Statement Attending Statement: examined this patient, discuss w/resident/PA/REPORT CHECKER, agreed w/resident/PA/REPORT CHECKER, reviewed EMR data (avail), discussed with nursing, amended to note Attending Assessment/Plan: Patient is a pleasant 36-year-old female with medical history significant for COPD/asthma overlap syndrome, presumed cryptogenic organizing pneumonia although there is no tissue diagnosis on chronic steroid therapy, intermittent eosinophilia and steroid-induced obesity. She has had repeated hospitalizations for respiratory symptoms. She unfortunately appears to be hospitalized monthly due to this. She was just discharged last month after being managed for another exacerbation of her disease. She reports doing well at home after discharge until in the hours of this morning when she awoke from sleep with difficulty breathing and finally has saturation to be in the 80s despite utilizing her routine oxygen supplementation. She felt herself wheezing significantly and eventually came to the emergency room for evaluation. Patient reports that at baseline she has a chronic intermittent cough. She also reports that frequently at night Shell weeks with difficulty breathing. She states that occasionally she finds that her nasal, has been dislodged while sleeping. She reports feeling also covering her mouth and nose while she is asleep. She has been referred to an interstitial lung disease specialist at [facility] and she is scheduled to undergo pulmonary function testing, bronchoscopy and sleep study in the future. She reports compliance with her uncle dilator regimen and steroid therapy. She denies exposure to any known triggers. Emergency room she had a prolonged course of bronchodilator therapy in addition to systemic steroids and IV azithromycin. Saturation remained stable on oxygen supplementation and her wheezing improved however because she felt unwell she was referred to the inpatient medical service for further evaluation and management. When I evaluated emergency room I found her alert and oriented 3. Conversing appropriately. She was not in any respiratory distress whatsoever. She was afebrile and hemodynamically stable. She was saturating 97% on 3 L of oxygen. She had good entry bilaterally with some expiratory rhonchi. Abdomen soft and nontender. She had no peripheral edema. Problems: 1. Acute on chronic hypoxic respiratory failure (patient reports saturations were in the 80s at home.) 2. Exacerbation of her asthma/COPD overlap in the setting of presumed cryptogenic organizing pneumonia. 3. Eosinophilia; intermittently elevated. Chronic microcytic anemia. 4. Hypokalemia; likely secondary to bronchodilator therapy. 5. Chronic Pain Syndrome Plan: -Admit to the inpatient general medical service. -Continue bronchodilator therapy per TR. -Systemic steroid therapy with Solu-Medrol 40 mg IV every 12 hours. I believe she may be quickly transitioned to oral steroid therapy tomorrow. -Consultation with patient's timber feller. -Check iron profile. -Supplement potassium orally. Repeat serum chemistry in a.m. -No clinical evidence of an infectious process at present. We'll hold off antibiotic therapy for now unless recommended by her timber feller service. -DVT prophylaxis with heparin subcutaneous. -Patient may have a component of obstructive sleep apnea. Would recommend she follow-up with her timber feller service as an outpatient for a formal sleep study. -Patient would like to continue her opiods fr her chronic pain syndrome. Continue with cautions. Fanny CHAPARRO,[facility] 07/17/17 7312: General Information and HPI MD Statement: I have seen and personally examined TERESA RODRIGEZ and documented this H&P. The patient is a 36 year old F who presented with a patient stated chief complaint of []. Resident Review Statement Resident Statement: examined this patient, discussed with internet marketing analyst, agreed with internet marketing analyst Other Findings: 36-year-old female with PMH of COPD (on 2 L of O2 at home), asthma, questionable cryptogenic organization pneumonia, and peripheral eosinophilia who presented to [place] ED complaining of 2 days of progressive shortness of breath and wheezing.The patient denies fever, chills, cough, or chest pain. For the past week patient has been using Provera 3-4 time a day with no relief of her symptoms. Patient is taking 40 mg prednisone for the past few months. The patient has a chronic right jaw pain related to chronic TMJ joint pain, on oxycodone at home. On physical exam patient has a very mild wheezing, normal cardiac exam, normal abdominal exam, trace lower extremity edema. She saturating 97% on 3 L of oxygen, hemodynamically stable and afebrile. Assessment The patient presented with shortness breath and mild wheezing, her symptoms can be multifactorial in origin related to asthma, COPD, and possible none diagnosed obstructive sleep apnea. Even though patient presented with shortness breath during history taking she stressed the need for oxycodone for her jaw pain, and she seemed careless about her shortness breath. Plan * Admit to general medicine floor * Peak flow twice a day * IV slow Medrol 40 mg twice a day * Fingerstick glucose monitoring given the chronic steroid use * We will start calcium and vitamin D if she can continue using steroid * TRC/nebs * Continue home inhalers, montelukast, and loratadine * 1 dose of oxycodone, confirm pain medication the morning. * Consult timber feller in a.m. * Subcutaneous heparin * Diabetic diet * Full code
[2017-07-17 22:17] VITALS: BP 116/82
--- NOTE | 2017-07-18 07:26 | PN- Housestaff ---
See Addendum Subjective Follow-up For: acute on chronic hypoxic respiratory failure Subjective: patients dyspnea and chest tightness feel significantly improved today nonproductive cough and pleuritic pain remain remains on supplemental oxygen Review of Systems Constitutional: Reports: see HPI. Objective Last 24 Hrs of Vital Signs/I&O Vital Signs Date Time Temp Pulse Resp B/P B/P Pulse O2 O2 Flow FiO2 Mean Ox Delivery Rate 07/18 0800 95 Nasal 3.0L Cannula 07/18 0728 97.6 58 18 120/88 95 Nasal 3.0L Cannula 07/177 98.3 83 18 116/82 93 Nasal 3.0L Cannula 07/17 2128 Nasal 3.0L Cannula 07/17 2055 Nasal 3.0L Cannula 07/17 2013 97.4 84 20 114/70 97 Nasal 3.0L Cannula 07/17 1828 96.2 74 20 118/66 97 Nasal 3.0L Cannula 07/17 1517 98.3 94 20 112/80 98 Nasal 3.0L Cannula 07/17 1306 20 98 Aerosol 8L Mask 07/17 1304 90 Room Air 07/17 1241 95 Nasal 3.0L Cannula Intake & Output 07/18 1600 07/18 0800 07/18 0000 Intake Total 240 480 Output Total Balance 240 480 Intake, Oral 240 480 Patient 79.379 kg Weight Weight Reported by Patient Measurement Method Physical Exam General Appearance: Alert, Oriented X3, Cooperative, No Acute Distress Cardiovascular: Regular Rate, Normal S1, Normal S2, No Murmurs Lungs: Clear to Auscultation, diminished air movement but no audible wheezing Abdomen: Normal Bowel Sounds, Soft, No Tenderness, No Masses Extremities: No Clubbing, No Cyanosis, No Edema, Normal Pulses Current Medications: Current Medications Sig/Nathan Start time Last Medication Dose Route Stop Time Status Admin Albuterol Sulfate 3 ML Q6P PRN 07/17 1800 AC INH Budesonide/ 2 PUF BID 07/17 2199 AC 07/18 Formoterol Fumarate INH 1056 Calcium/Vitamin D 1 TAB BID 07/18 1233 UNVr PO Heparin Sodium 5,000 UNIT Q8 07/17 2199 AC 07/17 (Porcine) SC 2257 Hydroxyzine HCl 0 .STK-MED ONE 07/17 183 DC PO Hydroxyzine HCl 10 MG DAILY PRN 07/17 1815 AC 07/17 PO 1835 Influenza Virus 0.5 ML ONCE ONE 07/17 2130 DC Vaccine IM 07/17 2131 Loratadine 10 MG DAILY 07/18 1000 AC 07/18 PO 1056 Magnesium Sulfate 1 GM ONCE ONE 07/17 1230 DC 07/17 Dextrose/Water 100 ML IV 07/17 1629 1302 Methylprednisolone 40 MG Q12 07/17 2200 AC 07/18 IV 1055 Montelukast Sodium 10 MG AT BEDTIME 07/17 220 AC 07/17 PO 2257 Oxycodone HCl 30 MG Q4P PRN 07/17 2330 AC 07/18 PO 1103 Oxycodone HCl 30 MG .STK-MED ONE 07/17 2247 DC PO 07/17 2248 Oxycodone HCl 5 MG ONCE PRN 07/17 2199 DC PO Oxycodone HCl 0 .STK-MED ONE 07/17 1837 DC PO Oxycodone HCl 30 MG ONCE ONE 07/17 1830 DC 07/17 PO 07/17 1831 1835 Paroxetine HCl 60 MG DAILY 07/18 1000 AC 07/18 PO 1056 Potassium Chloride 40 MEQ ONCE ONE 07/17 2230 DC 07/17 PO 07/17 2231 2311 Potassium Chloride 0 .STK-MED ONE 07/17 1837 DC PO Potassium Chloride 20 MEQ ONCE ONE 07/17 1800 DC 07/17 PO 07/17 1801 1835 Prednisone 0 .STK-MED ONE 07/17 1241 DC PO Tiotropium [place] 1 PUF DAILY 07/18 1000 AC 07/18 INH 1056 Trazodone HCl 150 MG QPM 07/17 2199 AC 07/17 PO 2258 Last 24 Hrs of Lab/Luke Results Last 24 Hrs of Labs/Mics: Laboratory Tests 07/18/17 0705: Anion Gap 9, Estimated GFR > 60, BUN/Creatinine Ratio 13.3 07/17/17 1349: Anion Gap 13, Estimated GFR > 60, BUN/Creatinine Ratio 12.5, Glucose 148 H, Calcium 9.3, Iron 17 L, TIBC 342, Ferritin 27.8, Total Bilirubin 0.6, AST 20, ALT 30, Alkaline Phosphatase 87, Troponin I < 0.01, Total Protein 6.4, Albumin 3.8, Globulin 2.6, Albumin/Globulin Ratio 1.5, Total Beta HCG NEGATIVE, CBC w Diff NO MAN DIFF REQ, RBC 4.53, MCV 78.1 L, MCH 25.7 L, MCHC 32.9 L, RDW 16.1 H, MPV 8.0, Gran % 55.9, Lymphocytes % 22.2, Monocytes % 7.3, Eosinophils % 14.1 H, Basophils % 0.5, Absolute Granulocytes 4.9, Absolute Lymphocytes 1.9, Absolute Monocytes 0.6, Absolute Eosinophils 1.2, Absolute Basophils 0 Microbiology 07/17 1729 NASOPHARYN: Influenza Virus A & B Rapid Smear - COMP Assessment/Plan Assessment: 36 year old female with PMH asthma/COPD, peripheral eosinophilia, cryptogenic organizing pneumonia without biopsy confirmation presents with complaints of recent URI, productive cough, and hypoxia despite supplemental oxygen not responsive to her inhalers and nebulized albuterol. asthma exacerbation: Trend peak flow Received magnesium Despite chronic 40mg daily steroids Consider DEXA scan, calcium/Vit D supplementation for osteoporosis on steroids Accuchecks given hyperglycemia on chemistry and steroids Continue spiriva, symbicort, and singulair Chronic respiratory respiratory failure: Titrate supplemental oxygen to an SpO2 > 94% Solumedrol 40mg IV q12h, took 40mg PO at home prior to arrival TRC evaluation Convert to oral steroids Pulmonology consultation, follow up recommendations Hypokalemia: Replete potassium probably secondary to metabolic alkolosis with steroids 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 Cryptogenic organizing pneumonia 2. Asthma exacerbation in COPD 3. Bronchitis 4. Acute and chronic respiratory failure with hypoxia 5. Hypoxia Pain Ratin Pain Location: pleuritic chest pain Pain Goal: Pain 4 or less Pain Plan: prn Tomorrow's Labs & Rationales: none
[2017-07-18 07:28] VITALS: BP 120/88
[2017-07-18] MEDS ORDERED: PREDNISONE20 M1 PO ×2 (13:11→13:12)
--- NOTE | 2017-07-18 13:51 | Cons- Pulmonary ---
General Information and HPI Consulting Request Date of Consult: 07/18/17 Requested By: Dr. Belcher Reason for Consult: dyspnea Source of Information: patient Exam Limitations: no limitations History of Present Illness: 36 year old woman. History of asthma, peripheral eosinophilia. 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 She has been on chronic prednisone. Recently paused Bactrim. Awaiting second opinion at the [facility]. She remains hypoxemic on oxygen at home. CXR unchanged from prior eosinophilia Her IgE was elevated as high as 452 (last 120). She may qualify for Xolair therapy. She is currently on spiriva, paxil, claritin, proventil, trazadone, singulair, symbicort, bactrim DS, roxicodone Lovenox for DVT prophylaxis. IV solumedrol 40mg iv q12h No n/v/d/c. No cp. Dyspnea primarily on exertion, wheezing, coughing (dry). Occasional ONEILL, no joint pains or rashes. Patient has been to [facility] for a second opinion she is awaiting to complete their requested workup including bronchoscopy and sleep study which is pending, she has an appointment next week. Allergies/Medications Allergies: Coded Allergies: No Known Allergies (06/19/17) Home Med List: Albuterol Sulfate (Proair Hfa) 90 MCG HFA.AER.AD 2 PUF INH Q4-6 PRN PRN RESPIRATORY (Reported) Budesonide/Formoterol Fumarate (Symbicort 160-4.5 Mcg Inhaler) 160 MCG-4.5 MCG/ ACTUATION HFA.AER.AD 2 PUF INH BID SOB (Reported) Guaifenesin 100 MG/5 ML LIQUID 10 ML PO Q4P PRN COUGH Guaifenesin/Dextromethorphan (Mucinex Dm ER 1,200-60 MG Tab) (Unknown Strength) TBMP.12HR (Unknown Dose) PO BID MUCUS/COUGH (Reported) Hydroxyzine HCl (hydrOXYzine HCl) 10 MG TABLET 10 MG PO DAILY PRN FOR INCREASED HEART RATE (Reported) Loratadine 10 MG TABLET 10 MG PO DAILY ASTHMA . Montelukast Sodium 10 MG TABLET 10 MG PO AT BEDTIME asthma . Oxycodone HCl 30 MG TABLET 1 TAB PO Q4H PRN PAIN (Reported) Paroxetine HCl 30 MG TABLET 2 TAB PO DAILY MENTAL HEALTH (Reported) Prednisone 20 MG TABLET 2 TAB PO DAILY ASTHMA/COPD (Reported) Tiotropium [place] (Spiriva) 18 MCG CAP.W.DEV 1 CAP INH DAILY ASTHMA ( Reported) Trazodone HCl 50 MG TABLET 3 TAB PO QPM SLEEP (Reported) Current Medications: Current Medications Sig/Nathan Start time Last Medication Dose Route Stop Time Status Admin Albuterol Sulfate 3 ML BID 07/18 2199 UNV INH Albuterol Sulfate 3 ML Q6P PRN 07/17 1800 AC INH Budesonide/ 2 PUF BID 07/17 2200 AC 07/18 Formoterol Fumarate INH 1056 Calcium/Vitamin D 1 TAB BID 07/18 1233 AC PO Heparin Sodium 5,000 UNIT Q8 07/17 2199 AC 07/17 (Porcine) SC 2257 Hydroxyzine HCl 0 .STK-MED ONE 07/17 1836 DC PO Hydroxyzine HCl 10 MG DAILY PRN 07/17 1815 AC 07/17 PO 1835 Influenza Virus 0.5 ML ONCE ONE 07/17 2129 DC Vaccine IM 07/17 2130 Loratadine 10 MG DAILY 07/18 1000 AC 07/18 PO 1056 Magnesium Sulfate 1 GM ONCE ONE 07/17 1230 DC 07/17 Dextrose/Water 100 ML IV 07/17 1629 1302 Methylprednisolone 40 MG Q12 07/17 2200 AC 07/18 IV 1055 Montelukast Sodium 10 MG AT BEDTIME 07/17 2200 AC 07/17 PO 2257 Oxycodone HCl 30 MG Q4P PRN 07/17 2330 AC 07/18 PO 1103 Oxycodone HCl 30 MG .STK-MED ONE 07/17 2247 DC PO 07/17 2248 Oxycodone HCl 5 MG ONCE PRN 07/17 2199 DC PO Oxycodone HCl 0 .STK-MED ONE 07/17 1837 DC PO Oxycodone HCl 30 MG ONCE ONE 07/17 1830 DC 07/17 PO 07/17 183 1835 Paroxetine HCl 60 MG DAILY 07/18 1000 AC 07/18 PO 1056 Potassium Chloride 40 MEQ ONCE ONE 07/17 2230 DC 07/17 PO 07/17 2231 2311 Potassium Chloride 0 .STK-MED ONE 07/17 1837 DC PO Potassium Chloride 20 MEQ ONCE ONE 07/17 1800 DC 07/17 PO 07/17 1801 1835 Tiotropium [place] 1 PUF DAILY 07/18 1000 AC 07/18 INH 1056 Trazodone HCl 150 MG QPM 07/17 2200 AC 07/17 PO 2258 Review of Systems Comments 18 point review of systems was performed and reviewed. Please see pertinent positives and pertinent negatives in the HPI. Otherwise ROS is negative. 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 FH: diabetes mellitus UNCLE-MATERNAL (BOOP). GRANDMOTHER-MATERNAL (CHF). Relation not specified for: FH: CAD (coronary artery disease) FH: HTN (hypertension) FH: ovarian cancer FH: uterine cancer Psychosocial History Where Do You Live? Home Who Do You Live With? parent Services at Home: None Primary Language: Slovak Smoking Status: Never Smoked ETOH Use: denies use Illicit Drug Use: denies illicit drug use Functional Ability ADLs Independent: dressing, eating, toileting, bathing. Ambulation: independent IADLs Independent: shopping, housework, finances, food prep, telephone, transportation , medication admin. Exam & Diagnostic Data Last 24 Hrs of Vital Signs/I&O Vital Signs Date Time Temp Pulse Resp B/P B/P Pulse O2 O2 Flow FiO2 Mean Ox Delivery Rate 07/18 0800 95 Nasal 3.0L Cannula 07/18 0728 97.6 58 18 120/88 95 Nasal 3.0L Cannula 07/17 2216 98.3 83 18 116/82 93 Nasal 3.0L Cannula 07/17 2128 Nasal 3.0L Cannula 07/17 2055 Nasal 3.0L Cannula 07/17 2013 97.4 84 20 114/70 97 Nasal 3.0L Cannula 07/17 1827 96.2 74 20 118/66 97 Nasal 3.0L Cannula 07/17 1517 98.3 94 20 112/80 98 Nasal 3.0L Cannula Intake & Output 07/18 1600 07/18 0800 07/18 0000 Intake Total 240 480 Output Total Balance 240 480 Intake, Oral 240 480 Patient 175 lb Weight Weight Reported by Patient Measurement Method Physical Exam Other Physical Findings: gen awake and alert heent ncat cvs s1, s2 lungs rhonchi scattered abd soft, elevated bmi ext without edema Last 48 Hrs of Labs/Luke: Laboratory Tests 07/18/17 0705: Anion Gap 9, Estimated GFR > 60, BUN/Creatinine Ratio 13.3 07/17/17 1349: Anion Gap 13, Estimated GFR > 60, BUN/Creatinine Ratio 12.5, Glucose 148 H, Calcium 9.3, Iron 17 L, TIBC 342, Ferritin 27.8, Total Bilirubin 0.6, AST 20, ALT 30, Alkaline Phosphatase 87, Troponin I < 0.01, Total Protein 6.4, Albumin 3.8, Globulin 2.6, Albumin/Globulin Ratio 1.5, Total Beta HCG NEGATIVE, CBC w Diff NO MAN DIFF REQ, RBC 4.53, MCV 78.1 L, MCH 25.7 L, MCHC 32.9 L, RDW 16.1 H, MPV 8.0, Gran % 55.9, Lymphocytes % 22.2, Monocytes % 7.3, Eosinophils % 14.1 H, Basophils % 0.5, Absolute Granulocytes 4.9, Absolute Lymphocytes 1.9, Absolute Monocytes 0.6, Absolute Eosinophils 1.2, Absolute Basophils 0 Microbiology 07/17 1729 NASOPHARYN: Influenza Virus A & B Rapid Smear - COMP Assessment/Plan Impression/Plan: 36 year old woman. History of asthma, peripheral eosinophilia. 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 She has been on chronic prednisone. Recently paused Bactrim. Awaiting second opinion at the [facility]. She remains hypoxemic on oxygen at home. CXR unchanged from prior eosinophilia Her IgE was elevated as high as 452 (last 120). She may qualify for Xolair therapy. She is currently on spiriva, paxil, claritin, proventil, trazadone, singulair, symbicort, bactrim DS, roxicodone Lovenox for DVT prophylaxis. IV solumedrol 40mg iv q12h No n/v/d/c. No cp. Dyspnea primarily on exertion, wheezing, coughing (dry). Occasional ONEILL, no joint pains or rashes. Patient has been to [facility] for a second opinion she is awaiting to complete their requested workup including bronchoscopy and sleep study which is pending, she has an appointment next week. Consult Acknowledgment - Thank you for your consult request.
[2017-07-18 14:04] VITALS: BP 117/67
[2017-07-18 22:53] VITALS: BP 110/76
[2017-07-19 06:48] VITALS: BP 114/70
--- NOTE | 2017-07-19 11:27 | PN- Housestaff ---
See Addendum Subjective Follow-up For: COPD/Asthma Subjective: No overnight events. Patient says she is improving but not ready to go home. Breathing still not great. Also concerned about getting the flu from her dad who has it at home. Review of Systems Constitutional: Reports: no symptoms. EENTM: Reports: no symptoms. Cardiovascular: Reports: no symptoms. Respiratory: Reports: see HPI. Gastrointestinal: Reports: no symptoms. Genitourinary: Reports: no symptoms. Musculoskeletal: Reports: no symptoms. Skin: Reports: no symptoms. Neurological/Psychological: Reports: no symptoms. Hematologic/Endocrine: Reports: no symptoms. Immunologic/Allergic: Reports: no symptoms. Objective Last 24 Hrs of Vital Signs/I&O Vital Signs Date Time Temp Pulse Resp B/P B/P Pulse O2 O2 Flow FiO2 Mean Ox Delivery Rate 07/19 0648 97.8 62 18 114/70 96 Nasal 3.0L Cannula 07/19 0000 97 Nasal 3.0L Cannula 07/18 2253 98.0 88 20 110/76 95 Nasal 3.0L Cannula 07/18 1927 89 Nasal 3.0L Cannula 07/18 1404 98.7 72 16 117/67 94 Room Air Intake & Output 07/19 1600 07/19 0800 07/19 0000 Intake Total 240 480 Output Total Balance 240 480 Intake, Oral 240 480 Physical Exam General Appearance: Alert, Oriented X3, Cooperative, No Acute Distress Cardiovascular: Regular Rate, Normal S1, Normal S2, No Murmurs Lungs: mild wheezing Abdomen: Normal Bowel Sounds, Soft, No Tenderness Neurological: Normal Speech Extremities: No Edema, Normal Pulses, No Tenderness/Swelling Current Medications: Current Medications Sig/Nathan Start time Last Medication Dose Route Stop Time Status Admin Albuterol Sulfate 3 ML BID 07/18 INH 1924 Albuterol Sulfate 3 ML Q6P PRN 07/17 1800 AC INH Budesonide/ 2 PUF BID 07/17 220 AC 07/19 Formoterol Fumarate INH 0911 Calcium/Vitamin D 1 TAB BID 07/18 1233 AC 07/19 PO 0912 Heparin Sodium 5,000 UNIT Q8 07/17 2199 AC 07/18 (Porcine) SC 1627 Hydroxyzine HCl 10 MG DAILY PRN 07/17 1815 AC 07/17 PO 1835 Loratadine 10 MG DAILY 07/18 1000 AC 07/19 PO 0912 Methylprednisolone 40 MG Q12 07/17 2199 DC 07/18 IV 07/18 2300 2305 Montelukast Sodium 10 MG AT BEDTIME 07/17 2199 AC 07/18 PO 2304 Oxycodone HCl 30 MG Q4P PRN 07/17 2330 AC 07/19 PO 0911 Paroxetine HCl 60 MG DAILY 07/18 1000 AC 07/19 PO 0913 Prednisone 40 MG DAILY 07/19 1000 AC 07/19 PO 0913 Tiotropium [place] 1 PUF DAILY 07/18 1000 AC 07/19 INH 0911 Trazodone HCl 150 MG QPM 07/17 2199 AC 07/18 PO 2304 Assessment/Plan Assessment: 36 year old female with PMH asthma/COPD, peripheral eosinophilia, cryptogenic organizing pneumonia without biopsy confirmation presents with complaints of recent URI, productive cough, and hypoxia despite supplemental oxygen not responsive to her inhalers and nebulized albuterol. asthma exacerbation: Trend peak flow Received magnesium Despite chronic 40mg daily steroids Consider DEXA scan, calcium/Vit D supplementation for osteoporosis on steroids Accuchecks given hyperglycemia on chemistry and steroids Continue spiriva, symbicort, and singulair Will be following up at [facility] for full workup of pulm issues. Not ready for discharge today, wants to stay another day. Still having some mild wheezing. 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 Asthma exacerbation in COPD Pain Ratin Pain Location: no Pain Goal: Remain pain free Pain Plan: seea/p Tomorrow's Labs & Rationales: no
--- NOTE | 2017-07-19 12:27 | PN- Pulmonary ---
Subjective HPI/Critical Care Issues: Patient seen and examined this morning. She appears to be feeling better and she has minor wheezing. She is anticipating discharge shortly. Objective Current Medications: Current Medications Sig/Nathan Start time Last Medication Dose Route Stop Time Status Admin Albuterol Sulfate 3 ML BID 07/18 2200 AC 07/18 INH 1924 Albuterol Sulfate 3 ML Q6P PRN 07/17 1800 AC INH Budesonide/ 2 PUF BID 07/17 2200 AC 07/19 Formoterol Fumarate INH 0911 Calcium/Vitamin D 1 TAB BID 07/18 1233 AC 07/19 PO 0912 Heparin Sodium 5,000 UNIT Q8 07/17 2200 AC 07/18 (Porcine) SC 1627 Hydroxyzine HCl 10 MG DAILY PRN 07/17 1815 AC 07/17 PO 1835 Loratadine 10 MG DAILY 07/18 1000 AC 07/19 PO 0912 Methylprednisolone 40 MG Q12 07/17 2200 DC 07/18 IV 07/18 2300 2305 Montelukast Sodium 10 MG AT BEDTIME 07/17 2200 AC 07/18 PO 2304 Oxycodone HCl 30 MG Q4P PRN 07/17 2330 AC 07/19 PO 0911 Paroxetine HCl 60 MG DAILY 07/18 1000 AC 07/19 PO 0913 Prednisone 40 MG DAILY 07/19 1000 AC 07/19 PO 0913 Tiotropium [place] 1 PUF DAILY 07/18 1000 AC 07/19 INH 0911 Trazodone HCl 150 MG QPM 07/17 2200 AC 07/18 PO 2304 Vital Signs & I&O Last 24 Hrs of Vitals and I&O: Vital Signs Date Time Temp Pulse Resp B/P B/P Pulse O2 O2 Flow FiO2 Mean Ox Delivery Rate 07/19 1128 99 Nasal 3.0L Cannula 07/19 0648 97.8 62 18 114/70 96 Nasal 3.0L Cannula 07/19 0000 97 Nasal 3.0L Cannula 07/18 2253 98.0 88 20 110/76 95 Nasal 3.0L Cannula 07/18 1927 89 Nasal 3.0L Cannula 07/18 1404 98.7 72 16 117/67 94 Room Air Intake & Output 07/19 1600 07/19 0800 07/19 0000 Intake Total 240 480 Output Total Balance 240 480 Intake, Oral 240 480 Exam Other Physical Findings: gen awake and alert heent ncat cvs s1, s2 lungs rhonchi scattered abd soft, elevated bmi ext without edema Impression/Plan Impression/Plan Impression/Plan: Impression 36-year-old woman * History of cryptogenic pneumonia and asthma mild exacerbation significantly improved Plan -Reduce prednisone to 40 mg and discharge and 40 mg without a taper -Patient has been to [facility] for a second opinion she is awaiting to complete their requested workup including bronchoscopy and sleep study which is pending, she has an appointment next week. okay for dc from pulmonary perspective
[2017-07-19 14:51] VITALS: BP 118/60
--- NOTE | 2017-07-21 09:30 | Discharge Summary ---
Visit Information Visit Dates Admission Date: 07/17/17 Discharge Date: 07/19/17 Hospital Course Course Attending Physician: Stephan Belcher MD Primary Care Physician: Socrates Ramirez MD Hospital Course: 36 year old female with PMH asthma/COPD, peripheral eosinophilia, cryptogenic organizing pneumonia without biopsy confirmation presents with complaints of recent URI, productive cough, and hypoxia despite supplemental oxygen. The patient was admitted for increased work of breathing, wheezing, and persistent hypoxia that failed to improve after treatment with her inhalers and nebulized albuterol at home. The patient was admitted and treated for an asthma exacerbation. Pulmonology was consulted give her complicated history of lung disease and frequent hospitalizations. The patient was treated with nebulized albuterol and ipatropium, spiriva, singular, symbicort, and antitussives. The patient at baseline uses 2L of nocturnal oxygen but had increased requirement to 2L continuously the days prior to admission. The patient was started on 3L nasal cannula in the hospital and gradually titrated down to basline. She was treated with intravenous steroids for two days and converted to oral prednisone. The patient is on chronic steroids currently and was discharged on 40mg of prednisone with instructions to follow up with pulmonology. Given the patient's persistent requirement for steroids, she should take calcium and Vitamin D supplementation and should be screened in the future for osteoporosis. In regards to her elevated IgE and peripheral eosinophilia, she is planning to follow up with pulmonology for possible treatment with xolair. She is also scheduled for follow up at [facility] with plans for polysomnography and bronchoscopy. The day of discharge, the patient's cough, chest tightness, dyspnea, and hypoxia were all significantly improved and she was discharged home with plans to follow up with her primary care physician and pulmonology. Allergies: Coded Allergies: No Known Allergies (06/19/17) Disposition Summary Disposition Principal Diagnosis: Asthma exacerbation Additional Diagnosis: Recurrent pneumonia, possibly cryptogenic organizing pneumonia COPD/asthma Elevated IgE, peripheral eosinophilia Chronic pain Discharge Disposition: home health services Discharge Instructions General Discharge Information Code Status: Full Code Patient's Diet: Regular diet Patient's Activity: No limitations, as tolerated Follow-Up Instructions/Appts: Please follow up with your primary care physician and business improvement manager after discharge Medications at Discharge Discharge Medications: Continue taking these medications: Tiotropium [place] (Spiriva) 18 MCG CAP.W.DEV 1 Capsule Inhale through mouth DAILY Comments: Last Taken: 06/22/17 Time: 1000AM Trazodone HCl (Trazodone HCl) 50 MG TABLET 3 Tablet ORAL Every night Qty = 30 Comments: last given 07/18/17 @ 2300 Budesonide/Formoterol Fumarate (Symbicort 160-4.5 Mcg Inhaler) 160 MCG-4.5 MCG/ ACTUATION HFA.AER.AD 2 Puff Inhale through mouth TWICE DAILY Comments: last given 07/19/17 @ 0900 Albuterol Sulfate (Proair Hfa) 90 MCG HFA.AER.AD 2 Puff Inhale through mouth EVERY 4-6 HOURS NEEDED as needed for RESPIRATORY Comments: Last Taken: 06/21/17 Time: 1923 Paroxetine HCl (Paroxetine HCl) 30 MG TABLET 2 Tablet ORAL DAILY Comments: last given 07/19/17 @ 0900 Oxycodone HCl (Oxycodone HCl) 30 MG TABLET 1 Tablet ORAL Q4H as needed for PAIN Comments: last given 07/19/17 @ 1710 Loratadine (Loratadine) 10 MG TABLET 10 Milligram ORAL DAILY Qty = 30 Instructions: . Comments: last given 07/19/17 @ 0900 Montelukast Sodium (Montelukast Sodium) 10 MG TABLET 10 Milligram ORAL AT BEDTIME Qty = 30 Instructions: . Comments: last given 07/18/17/@2300 Hydroxyzine HCl (hydrOXYzine HCl) 10 MG TABLET 10 Milligram ORAL DAILY as needed for FOR INCREASED HEART RATE Qty = 30 Comments: last given 07/17/17 @1830 Guaifenesin/Dextromethorphan (Mucinex Dm ER 1,200-60 MG Tab) (Unknown Strength) TBMP.12HR Unknown Dose ORAL TWICE DAILY Comments: Not administered in hospital Guaifenesin (Guaifenesin) 100 MG/5 ML LIQUID 10 Milliliters ORAL EVERY 4 HOURS NEEDED as needed for COUGH Days = 28 Prednisone (Prednisone) 20 MG TABLET 2 Tablet ORAL DAILY Qty = 60 Comments: last given 07/19/17 @ 0900 Copies To: James CHAPARRO,Socrates Mehta; Lucina CHAPARRO,Quang Attending Review Statement Documenting Attending: Stephan Belcher MD
== END 2017-07-19 17:31 | disposition home health service (06) | DRG 190 ==
LOC: ERH 11:36 → 2NB 17:41 → ERHI 17:41 → 2NB 17:41 → ENRESERV 18:05 → CANRESERV 18:05 → ENRESERV 18:47 → ENTRNSPT 20:09 → EDTRNSPT 20:13 → EDTRNSPTSTS 20:13 → 2NB 20:24 → CMPTRNSPT 20:32 → ENPENDDIS 07-19 14:26 → 2NB 07-19 17:31
PROVIDERS: Physician Assistant
DX: J44.1 Chronic obstructive pulmonary disease with (acute) exacerbation (principal); J96.21 Acute and chronic respiratory failure with hypoxia; J84.116 Cryptogenic organizing pneumonia; Z99.81 Dependence on supplemental oxygen; D72.1 Eosinophilia; K58.1 Irritable bowel syndrome with constipation; M79.7 Fibromyalgia; E87.6 Hypokalemia; G89.4 Chronic pain syndrome
CPT/HCPCS: 2NBSP; 36415; 71046; 82436; 87804; 87804-59; 93005; 93010; 96374; 99291; J1644; J2920; J3490

== ENCOUNTER 2017-08-04 12:08 | Observation (INO) | payer OTHER, MEDICARE ==
[~2017-08-04] VITALS: Ht 157.5 cm; Wt 77.1 kg
--- NOTE | 2017-08-04 12:23 | ED DYSPNEA/ASTHMA COMPLAINT ---
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 Source: patient, old records Exam Limitations: no limitations Vital Signs & Intake/Output Vital Signs & Intake/Output Vital Signs Date Time Temp Pulse Resp B/P B/P Pulse O2 O2 Flow FiO2 Mean Ox Delivery Rate 08/05 0934 94 Nasal 3.5L Cannula 08/05 0800 93 Nasal 3.5L Cannula 08/05 0705 97.8 68 20 112/66 96 Room Air 08/05 0000 97 Nasal 3.5L Cannula 08/04 2128 Nasal 3.5L Cannula 08/04 1737 97 Nasal 3.5L Cannula 08/04 1737 98.4 93 20 110/60 97 Nasal 3.5L Cannula 08/04 1604 98.4 99 18 114/62 95 Nasal 3.5L Cannula 08/04 1439 93 Nasal 3.5L Cannula 08/04 1439 93 Nasal 3.5L Cannula 08/04 1251 93 Nasal 2.0L Cannula 08/04 1230 92 Nasal 3.5L Cannula 08/04 1219 97.4 102 24 145/81 91 Nasal 2.0L Cannula ED Intake and Output 08/05 0000 08/04 1200 Intake Total 1010 Output Total Balance 1010 Intake, IV 10 Intake, Oral 1000 Patient 170 lb Weight Weight Reported by Patient Measurement Method Allergies Coded Allergies: No Known Allergies (06/19/17) Reconcile Medications Albuterol Sulfate (Proair Hfa) 90 MCG HFA.AER.AD 2 PUF INH Q4-6 PRN PRN RESPIRATORY (Reported) Budesonide/Formoterol Fumarate (Symbicort 160-4.5 Mcg Inhaler) 160 MCG-4.5 MCG/ ACTUATION HFA.AER.AD 2 PUF INH BID SOB (Reported) Guaifenesin 100 MG/5 ML LIQUID 10 ML PO Q4P PRN COUGH Guaifenesin/Dextromethorphan (Mucinex Dm ER 1,200-60 MG Tab) (Unknown Strength) TBMP.12HR (Unknown Dose) PO BID MUCUS/COUGH (Reported) Hydroxyzine HCl (hydrOXYzine HCl) 10 MG TABLET 10 MG PO DAILY PRN FOR INCREASED HEART RATE (Reported) Loratadine 10 MG TABLET 10 MG PO DAILY ASTHMA . Montelukast Sodium 10 MG TABLET 10 MG PO AT BEDTIME asthma . Oxycodone HCl 30 MG TABLET 1 TAB PO Q4H PRN PAIN (Reported) Paroxetine HCl 30 MG TABLET 2 TAB PO DAILY MENTAL HEALTH (Reported) Prednisone 20 MG TABLET 2 TAB PO DAILY ASTHMA/COPD (Reported) Tiotropium Robinson (Spiriva) 18 MCG CAP.W.DEV 1 CAP INH DAILY ASTHMA ( Reported) Trazodone HCl 50 MG TABLET 3 TAB PO QPM SLEEP (Reported) Triage Note: PT TO ED C/O FEELING SOB SINCE LAST NIGHT. H/O ASTHMA, BRONCHITIS, PNA. HAS BEEN USING NEBS AND INHALERS WITH NO RELIEF. PT ON 2L NC. SATS 85%. PT TAKEN TO ROOM VIA W/C FOR EVAL. Triage Nurses Notes Reviewed? yes Onset: Gradual Duration: worse persistent since (2 DAYS) Timing: recent history Severity: moderate, severe Activities at Onset: none Prior Episodes/Possible Cause: frequent episodes Modifying Factors: Improves With: immobilization, rest. Associated Symptoms: cough, wheezing, CHILLS : No Patient currently breastfeeds: No HPI: Patient is a 36-year-old female with history of cryptogenic organizing pneumonia presenting to the emergency department complaining of increasing shortness of breath, dry cough and wheezing thing going on for the past 2 days. She reports several hospital stays over the past several months due to symptoms. Currently in transition to being seen by specialists for further evaluation. She has a sleep study scheduled up as well as a bronchoscopy ordered. No recent changes with medications or dosing. Currently on prednisone 40 mg daily. Last dose was this morning. She is been using her inhalers at home without relief in symptoms. She usually uses oxygen 2 L at night but has been requiring to use it during the day in excessive of 2 L. Patient denying any chest pain or palpitations. She was told by her furnace tender that if she ever requires more than 2 L at home during the day she should come into the emergency department for evaluation. Positive chills no fevers. She did not get the flu vaccine this year. No sick contacts or recent travel. Denies abdominal pain. No change in bowel habits. Denies any urinary symptoms. (Maranda Candelaria) Past History Travel History Traveled to [place] past 21 day No Medical History Any Pertinent Medical History? 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 FH: diabetes mellitus UNCLE-MATERNAL (BOOP). GRANDMOTHER-MATERNAL (CHF). Relation not specified for: FH: CAD (coronary artery disease) FH: HTN (hypertension) FH: ovarian cancer FH: uterine cancer Hx Contributory? No (Maranda Candelaria) Review of Systems Review of Systems Constitutional: Reports: see HPI, chills. Comments Review of systems: See HPI, All other systems negative. Constitutional, no fever or weight loss HEENT: No visual changes no sore throat Cardiovascular: No chest pain ,palpitation , orthopnea or ankle swelling Skin, no jaundice no rashes Respiratory: No sputum or hemoptysis GI: No nausea no vomiting : No dysuria No hematuria Muscle skeletal: no back pain, no neck pain, Neurologic: No numbness no confusion, no headaches Psych: No stress anxiety or depression,. Heme/endocrine: No bruising no bleeding no polyuria or polydipsia Immunology: No splenectomy or history of AIDS (Maranda Candelaria) Physical Exam Physical Exam General Appearance: well developed/nourished, alert, awake, mild distress Respiratory: accessory muscle use, wheezing Comments: Well-developed well-nourished person in mild distress HEENT: Pupils equally round and reactive to light and accommodation. Nose is atraumatic. External auditory canal and Tympanic membranes clear. Pharynx normal. No swelling or edema. Neck: Supple, no lymphadenopathy Back: Nontender Cardiovascular: Regular rate and rhythms no murmurs rubs or gallops Respiratory: Chest nontender. Mild to moderate respiratory distress.diffuse expiratory and inspiratory wheezing to auscultation bilaterally Extremity: No edema Neuro: Alert oriented x3 Skin: No appreciable rash on exposed skin, skin is warm and dry. Psych: Mood and affect is normal, memory and judgment is normal. Core Measures ACS in differential dx? Yes CVA/TIA Diagnosis No Sepsis Present: No Sepsis Focused Exam Completed? No (Maximo COSBY,Maranda) Progress Differential Diagnosis: asthma, AMI, bronchitis, costochondritis, CHF, COPD, pulmonary embolism, pneumonia, pneumothorax Plan of Care: Orders Procedure Date/time Status Heart Healthy Diet 08/05 B Active BASIC ELECTROLYTES PLUS BUN&CR 08/05 0600 Complete Regular Diet 08/04 L Complete RT: Evaluation 08/04 2126 Active Vital Signs 08/04 1733 Active Teach/Educate 08/04 1733 Active Pain Treatment and Response 08/04 1733 Active Nutritional Intake, Monitor 08/04 1733 Active Isolation 08/04 1733 Active Intake & Output 08/04 1733 Active Patient Care Conference 08/04 1733 Active Activity/Ambulation 08/04 1733 Active Intake & Output 08/04 1724 Active TRC EVALUATION (GEN) 08/04 1633 Active OXYGEN SETUP (GEN) 08/04 1633 Active Pathway - chart 08/04 1633 Active House Staff 08/04 1633 Active Code Status 08/04 1633 Active Patient Data 08/04 1625 Active TRC EVALUATION (GEN) 08/04 1518 Complete RT ED ORDERS 08/04 1518 Active Patient Data 08/[address] in observation 08/04 1515 Active ED Holding Orders 08/04 1515 Active Vital Signs 08/04 1515 Active Code Status 08/04 1515 Complete URINE 08/04 1514 Complete URINE DRUG SCREEN FOR ER ONLY 08/04 1514 Complete URINALYSIS 08/04 1514 Complete AEROSOL (GEN) 08/04 1439 Complete ARTERIAL BLOOD GAS (GEN) 08/04 1336 Active RAPID VIRAL INFLUENZA A 08/04 1252 Complete AEROSOL (GEN) 08/04 1238 Complete Telemetry/Technology Professional 08/04 1222 Complete TROPONIN LEVEL 08/04 1222 Complete PARTIAL THROMBOPLASTIN TIME 08/04 1222 Complete PROTHROMBIN TIME 08/04 1222 Complete COMPREHENSIVE METABOLIC PANEL 08/04 1222 Complete CBC WITHOUT DIFFERENTIAL 08/04 1222 Complete EKG 08/04 1222 Active OXYGEN SETUP CHG 08/04 UNK Complete OXYGEN 03/12 UNK Complete OXYGEN TRANSPORT 08/04 UNK Complete THERAPIST ORDERS 08/04 UNK Complete OXYGEN SETUP (GEN) 08/04 UNK Complete VTE Mechanical Prophylaxis 08/04 UNK Active MISSING MEDICATION FORM 08/04 UNK Active Current Medications Sig/Nathan Start time Last Medication Dose Stop Time Status Admin Enoxaparin Sodium 40 MG DAILY 08/05 1000 AC (Lovenox) Methylprednisolone 40 MG BID 08/05 1000 AC 08/05 (Solumedrol) 0912 Paroxetine HCl 60 MG DAILY 08/05 1000 AC 08/05 (Paxil) 0912 Albuterol Sulfate 3 ML BID 08/04 2200 AC 08/05 (Proventil) 0852 Budesonide/ 2 PUF BID 08/04 2200 AC 08/05 Formoterol Fumarate 0912 (Symbicort) Guaifenesin 600 MG Q12 08/04 2200 AC 08/05 (Mucinex) 0912 Montelukast Sodium 10 MG AT BEDTIME 08/04 2200 AC 08/04 (Singulair) 2144 Trazodone HCl 150 MG QPM 08/04 2200 AC 08/04 (Desyrel) 2121 Albuterol Sulfate 2 PUF Q4-6 PRN PRN 08/04 1630 AC (Ventolin) Guaifenesin 10 ML Q4P PRN 08/04 1630 AC 08/04 (Robitussin) 1938 Hydroxyzine HCl 10 MG DAILY PRN 08/04 1630 AC (Atarax) Ipratropium Robinson 2.5 ML Q4 HRS NEEDED PRN 08/04 1630 AC (Atrovent) Oxycodone HCl 30 MG Q4H PRN 08/04 1630 AC 08/05 (Roxicodone) 1118 Loratadine 10 MG DAILY 08/04 1500 AC 08/05 (Claritin) 0912 Laboratory Tests 08/05/17 0715: Anion Gap 10, Estimated GFR > 60, BUN/Creatinine Ratio 12.9 08/04/17 1753: Urine Opiates Screen > 4000.00 H, Methadone Screen < 40, Barbiturate Screen < 60, Ur Phencyclidine Scrn < 6.00, Amphetamines Screen < 100, U Benzodiazepines Scrn < 85, Urine Cocaine Screen 107, Urine Cannabis Screen < 5.00, Urine Color YEL, Urine Clarity CLEAR, Urine pH 6.0, Ur Specific Mccormick 1.015, Urine Protein NEG, Urine Ketones TRACE H, Urine Nitrite NEG, Urine Bilirubin NEG, Urine Urobilinogen 1.0, Ur Leukocyte Esterase TRACE H, Ur Microscopic SEDIMENT EXAMINED, Urine RBC RARE, Urine WBC 3-5 H, Ur Epithelial Cells MANY H, Urine Hemoglobin NEG, Urine Glucose >=1000 H, Urine Test NEGATIVE 08/04/17 1300: Anion Gap 11, Estimated GFR > 60, BUN/Creatinine Ratio 8.6, Glucose 95, Calcium 9.3, Total Bilirubin 1.4 H, AST 17, ALT 28, Alkaline Phosphatase 93, Troponin I < 0.01, Total Protein 6.7, Albumin 3.9, Globulin 2.8, Albumin/Globulin Ratio 1.4 , PT 13.1 H, INR 1.20 H, APTT 42 H, CBC w Diff NO MAN DIFF REQ, RBC 4.90, MCV 78.5 L, MCH 25.3 L, MCHC 32.2 L, RDW 15.9 H, MPV 8.0, Gran % 60.9, Lymphocytes % 23.9, Monocytes % 5.2, Eosinophils % 9.5 H, Basophils % 0.5, Absolute Granulocytes 7.5 H, Absolute Lymphocytes 3.0, Absolute Monocytes 0.6, Absolute Eosinophils 1.2, Absolute Basophils 0.1 Microbiology 08/04 1417 NASOPHARYN: Influenza Virus A & B Rapid Smear - COMP 08/04/2017 3:24:42 PM patient feeling improved slightly after serial breathing treatments, IV site Metro. Patient still has expiratory and respiratory wheezing on exam. No acute distress at this time. Oxygen saturation remaining around 91-92% on 2 L nasal cannula. Patient will be admitted for asthma exacerbation. Pulmonology consultation. Patient will need continued breathing treatments, IV steroids. Diagnostic Imaging: Viewed by Me: Radiology Read. Discussed w/RAD: Radiology Read. Radiology Impression: PATIENT: TERESA RODRIGEZ PRESENT AGE: 36 PATIENT ACCOUNT NO: [id number] : 81 LOCATION: [facility] ORDERING PHYSICIAN: Maranda COSBY SERVICE DATE: 08/04/17-1222 EXAM TYPE: RAD - XRY-PORTABLE CHEST XRAY EXAMINATION: XR PORTABLE CHEST CLINICAL INFORMATION: Shortness of breath and cough COMPARISON: CXR from 07/17/2017. Prior chest CT exams from 09/28/2016, 12/13/2016, 04/09/2017 and 04/29/2017. TECHNIQUE: Portable frontal view of the chest was obtained. FINDINGS: The lungs are symmetrically expanded. A ill-defined, hazy opacity in the medial right lung base observed on 07/17/2017 has either improved or resolved. There appears to be persistent, ill-defined hazy opacity in the left lung base. Note that there were bilateral groundglass pulmonary opacities on the multiple prior chest CT exams. No new pulmonary findings compared to the chest radiograph from 07/17/2017. No pleural effusion. Cardiac silhouette has normal size and contour. Bones are unremarkable. IMPRESSION: The ill-defined hazy, groundglass opacity in the medial right lung base has improved or resolved compared to 07/17/2017. In this patient with history of cryptogenic pneumonia, there appears to be persistent hazy opacity at the left base. No new cardiopulmonary findings compared to 07/17. DICTATED BY: Sal Deng MD DATE/TIME DICTATED:08/04/171411 ASSOCIATE MEDICAL DIRECTOR:NABOR DATE/TIME TRANSCRIBED:08/04/171411 CONFIDENTIAL, DO NOT COPY WITHOUT APPROPRIATE AUTHORIZATION. Initial ED EKG: SINUS TACHY 107 (Maranda Candelaria) Departure Departure Time of Disposition: 1513 Disposition: STILL A PATIENT Condition: Stable Clinical Impression Primary Impression: Asthma exacerbation Qualifiers: Asthma severity: moderate Asthma persistence: persistent Qualified Code: J45.41 - Moderate persistent asthma with (acute) exacerbation Referrals: Socrates Ramirez MD (PCP/Family) Departure Forms: Customer Survey General Discharge Information Observation Note Spoke With: Uriel Nascimento MD Physician Advisor Notified: MINA SCHULZ MD Place Patient In: Non-ED OBS Care Area Rationale for Observation: My rational for observation is as follows . Patient requiring serial DuoNeb treatments, IV steroids, requiring more oxygen than patient's baseline, pulmonology consultation, discharge at this time is medicalLY HAMRFUL. (Maranda Candelaria) PA/BENCH CARPENTER Co-Sign Statement Statement: ED Attending supervision documentation- [X] I saw and evaluated the patient. I have also reviewed all the pertinent lab results and diagnostic results. I agree with the findings and the plan of care as documented in the PA's/BENCH CARPENTER's documentation. [X] I have reviewed the ED Record and agree with the PA's/BENCH CARPENTER's documentation. [] Additions or exceptions (if any) to the PAs/BENCH CARPENTER's note and plan are summarized below: [] (Alessandro CHAPARRO,Yancy) Critical Care Note Critical Care Note Critical Care Time: 30-74 min (Maximo COSBY,Maranda)
[2017-08-04 13:12] LABS: ABSOLUTE BASOPHIL COUNT 0.1 /CUMM (0.0-0.2); ABSOLUTE EOSINOPHIL COUNT 1.2 /CUMM (0.0-0.7); ABSOLUTE GRANULOCYTE CT 7.5 /CUMM (1.4-6.5); ABSOLUTE MONOCYTE COUNT 0.6 /CUMM (0.10-0.60); BASOPHIL % 0.5 % (0.0-2.0); EOSINOPHIL % 9.5 % (0-5); GRANULOCYTE % 60.9 % (42.2-75.2); HEMATOCRIT 38.4 % (37-47); MEAN CORPUSCULAR HGB 25.3 PG (27.0-31.0); MEAN CORPUSCULAR HGB CONC 32.2 G/DL (33.0-37.0); MEAN CORPUSCULAR VOLUME 78.5 FL (81.0-99.0); PLATELET COUNT 280 /CUMM (130-400); RBC DISTRIBUTION WIDTH 15.9 % (11.5-14.5); WHITE BLOOD CELL COUNT 12.4 /CUMM (4.8-10.8)
[2017-08-04 13:24] LABS: PT 13.1 SEC (9.4-12.5); PTT 42 SEC (25-37)
--- NOTE | 2017-08-04 14:27 | RADIOLOGY REPORT ---
EXAMINATION: XR PORTABLE CHEST CLINICAL INFORMATION: Shortness of breath and cough COMPARISON: CXR from 07/17/2017. Prior chest CT exams from 09/28/2016, 12/13/2016, 04/09/2017 and 04/29/2017. TECHNIQUE: Portable frontal view of the chest was obtained. FINDINGS: The lungs are symmetrically expanded. A ill-defined, hazy opacity in the medial right lung base observed on 07/17/2017 has either improved or resolved. There appears to be persistent, ill-defined hazy opacity in the left lung base. Note that there were bilateral groundglass pulmonary opacities on the multiple prior chest CT exams. No new pulmonary findings compared to the chest radiograph from 07/17/2017. No pleural effusion. Cardiac silhouette has normal size and contour. Bones are unremarkable. IMPRESSION: The ill-defined hazy, groundglass opacity in the medial right lung base has improved or resolved compared to 07/17/2017. In this patient with history of cryptogenic pneumonia, there appears to be persistent hazy opacity at the left base. No new cardiopulmonary findings compared to 07/17/2017.
--- NOTE | 2017-08-04 15:36 | History & Physical ---
SaiSuzy 08/04/17 1535: General Information and HPI MD Statement: I have seen and personally examined TERESA RODRIGEZ and documented this H&P. The patient is a 36 year old F who presented with a patient stated chief complaint of []. Source of Information: patient, family, old records Exam Limitations: no limitations History of Present Illness: 36 year old female with PMH asthma/COPD, peripheral eosinophilia, cryptogenic organizing pneumonia without biopsy confirmation presents with complaints of increased oxygen demand and worsening shortness of breath. The patient was admitted (07/17-07/19) for persistent hypoxia secondary to asthma exacerbation that failed to improve after treatment with her inhalers and nebulized albuterol at home. The patient was admitted and treated for an asthma exacerbation and discharged home with a plan to follow up with [facility] for lung biopsy /bronchoscopy and a sleep study. Patient may contact with those aforementioned centers she had a sleep study scheduled for next week and pending lung biopsy after obtaining the sleep study. At her baseline she is on 2 L of nocturnal oxygen. For the past 2-3 days patient has noticed gradual but constant increasing oxygen demands and increasing usage of rescue albuterol. At her baseline she is able to ambulate without any limitation. Last 48 hours remained in bed due to severe shortness of breath and O2 dependence. Additionally she developed unproductive in frequents coughs about 2-3 days ago denies any malaise, symptoms of URI, fevers, reports occasional chills, no sick contact no recent travel, no GI/ symptoms. Allergies/Medications Allergies: Coded Allergies: No Known Allergies (06/19/17) Compliance With Home Meds: GOOD Past History Travel History Traveled to [place] past 21 day No Medical History Neurological: FIBROMYALGIA EENT: TMJ arthritis s/p jaw surgery at [facility] 2010 Cardiovascular: syncope (vasovagal(has had cardio eval)) Respiratory: asthma, bronchitis, pneumonia, CRYPTOGENIC ORGANIZING PNA Gastrointestinal: constipation (IBS), irritable bowel syndrome Hepatic: NONE Renal: NONE Musculoskeletal: fibromyalgia Psychiatric: anxiety Endocrine: NONE Blood Disorders: NONE Cancer(s): NONE [employer]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 FH: diabetes mellitus UNCLE-MATERNAL (BOOP). GRANDMOTHER-MATERNAL (CHF). Relation not specified for: FH: CAD (coronary artery disease) FH: HTN (hypertension) FH: ovarian cancer FH: uterine cancer Psychosocial History Who Do You Live With? parent Services at Home: None Primary Language: Luxembourger ETOH Use: denies use Illicit Drug Use: denies illicit drug use Functional Ability ADLs Independent: dressing, eating, toileting, bathing. Ambulation: independent IADLs Independent: shopping, housework, finances, food prep, telephone, transportation , medication admin. Review of Systems Review of Systems Constitutional: Reports: see HPI. EENTM: Reports: no symptoms. Cardiovascular: Reports: no symptoms. Respiratory: Reports: see HPI, cough, short of breath, wheezing. Denies: hemoptysis, orthopnea, sputum production. GI: Reports: no symptoms. Genitourinary: Reports: no symptoms. Musculoskeletal: Reports: no symptoms. Skin: Reports: no symptoms. All Other Systems: Reviewed and Negative Exam & Diagnostic Data Last 24 Hrs of Vital Signs/I&O Vital Signs Date Time Temp Pulse Resp B/P B/P Pulse O2 O2 Flow FiO2 Mean Ox Delivery Rate 08/04 1604 98.4 99 18 114/62 95 Nasal 3.5L Cannula 08/04 1439 93 Nasal 3.5L Cannula 08/04 1439 93 Nasal 3.5L Cannula 08/04 1251 93 Nasal 2.0L Cannula 08/04 1230 92 Nasal 3.5L Cannula 08/04 1219 97.4 102 24 145/81 91 Nasal 2.0L Cannula Intake & Output 08/04 1600 08/04 0800 08/04 0000 Intake Total Output Total Balance Patient 170 lb Weight Weight Reported by Patient Measurement Method Physical Exam General Appearance Alert, Oriented X3, Cooperative, No Acute Distress HEENT PERRLA, EOMI Neck Supple, No JVD Cardiovascular Normal S1, Normal S2, No Murmurs Lungs generalized end expiratory wheeze Abdomen Normal Bowel Sounds, Soft, No Masses Extremities No Edema Assessment/Plan Assessment: This is a 36-year-old woman with history of ??? Cryptogenic pneumonia pending final diagnosis with lung biopsy and multiple admissions for asthma exacerbation was admitted for acute hypoxic respiratory failure secondary to but it seems to be another episode of asthma exacerbation. Pertinent data Chest x-ray: The ill-defined hazy, groundglass opacity in the medial right lung base has improved or resolved compared to 07/17/2017. Labs WBC 12.4 with left shift no bandemia; H&H: 12 point 4/38, sodium 139, potassium 3.4, chloride 95, bicarbonate 34, T bili 1.4 INR 1.2 Issue to be considered for this hospitalization #1 acute hypoxic respiratory failure secondary to asthma exacerbation without evidence of infection; possibility of upper respiratory tract infection viral versus bacterial; remained afebrile (on 40 mg of by mouth prednisone); watch off antibiotics if patient spikes fever of 100.4 blood cultures sputum culture and start broad-spectrum antibiotic therapy considering her recent hospital discharge. #2 chronic pain due to TM joint fracture: Patient adamantly requested her home pain medication regimen which consists of oxycodone 30 mg every 4 as needed for severe pain #3 hypokalemia #4 anxiety and depression #5 insomnia #6 history of hyper hypereosinophilia and strong Hx of allergy; ?? allergic asthma Plan * Admit to general medical floor as an observation * Bedside peak flow * TRC nebulizer * Continue her home inhalers * IV Solu-Medrol 40 mg every 12 * Oxygen set up per TRC protocol; titrates as tolerated targets O2 saturation more than 90% * Watch off antibiotics; if patient spikes fever more than 100.4 send blood cultures and sputum cultures * Consult pulmonology * Continue loratadine * Continue Singulair * Norberto is seen 10 mL every 4 as needed * mucinex 600 mg extended release BID FC Enoxaprin housekeeping As Ranked By This Provider Problem List: 1. Asthma exacerbation in COPD 2. Cryptogenic organizing pneumonia Core Measures/Misc (02/09) Acute Coronary Syndrome ACS Diagnosis: No Congestive Heart Failure Congestive Heart Failure Diagnosis No Cerebrovascular Accident CVA/TIA Diagnosis: No VTE (View Protocol) VTE Risk Factors CHF or Resp Failure No Mechanical VTE Prophylaxis d/t N/A MechProphylax Ordered No VTE Pharm Prophylaxis d/t NA PharmProphylax ordered Sepsis (View protocol) Sepsis Present: No Resident Review Statement Resident Statement: examined this patient, discussed with consultant intern, agreed with consultant intern, discussed with family, reviewed EMR data (avail), discussed with nursing , discussed with case mgmt, reviewed images, amended to note Uriel Nascimento MD 08/04/17 1822: General Information and HPI Allergies/Medications Home Med list Albuterol Sulfate (Proair Hfa) 90 MCG HFA.AER.AD 2 PUF INH Q4-6 PRN PRN RESPIRATORY (Reported) Budesonide/Formoterol Fumarate (Symbicort 160-4.5 Mcg Inhaler) 160 MCG-4.5 MCG/ ACTUATION HFA.AER.AD 2 PUF INH BID SOB (Reported) Guaifenesin 100 MG/5 ML LIQUID 10 ML PO Q4P PRN COUGH Guaifenesin/Dextromethorphan (Mucinex Dm ER 1,200-60 MG Tab) (Unknown Strength) TBMP.12HR (Unknown Dose) PO BID MUCUS/COUGH (Reported) Hydroxyzine HCl (hydrOXYzine HCl) 10 MG TABLET 10 MG PO DAILY PRN FOR ALLERGY (Reported) Loratadine 10 MG TABLET 10 MG PO DAILY ASTHMA . Montelukast Sodium 10 MG TABLET 10 MG PO AT BEDTIME asthma . Oxycodone HCl 30 MG TABLET 1 TAB PO Q4H PRN PAIN (Reported) Paroxetine HCl 30 MG TABLET 2 TAB PO DAILY MENTAL HEALTH (Reported) Prednisone 20 MG TABLET 2 TAB PO DAILY ASTHMA/COPD (Reported) Tiotropium Martin (Spiriva) 18 MCG CAP.W.DEV 1 CAP INH DAILY ASTHMA ( Reported) Trazodone HCl 50 MG TABLET 3 TAB PO QPM SLEEP (Reported) Attending MD Review Statement Attending Statement Attending MD Statement: examined this patient, discuss w/resident/PA/CAR REPAIRMAN, agreed w/resident/PA/CAR REPAIRMAN, reviewed EMR data (avail), reviewed images, amended to note Attending Assessment/Plan: The patient is a 36 yo female with h/o cryptogenic organizing pneumonia, asthma/ COPD, ?BOOP with multiple prior [facility] admissions who presented in the ED with c/o progressive increasing oxygen needs and cough x several days. She had been recently discharged for treatment of same and initially did well. Has decreased dose of Prednisone to 40 mg daily over last 1 week. She is normally only on nasal oxygen 2L at night and has had to use during day and has needed increasing amounts to assist in breathing. She has also been using inhalers/ nebulizer more frequently than prescribed. She denies fever or chills. No chest pain. Now unable to ambulate to bathroom without severe dyspnea. She states she has been scheduled for an outpatient sleep study next week and will be going to [facility] for pulmonary evaluation ([place]). She is followed regularly by Dr. Verdugo. She continues to c/o jaw pain requiring oxycodone 30 mg q4h. Physical Exam: VS: T 98.4, P 99, R 18, BP 114/62, PO 95% on 3L (normally on RA at home except night) HEENT: eyes- PERRLA, EOMI cristino- moist mucosa w/o lesions/thrush Neck: no JVD, adenopathy Chest: moderate diffuse wheeze with occasional rhonchi, mild diminished breath sounds Cor: RRR nl S1, S2 w/o murm Abd: BS+, soft, NT Ext: no edema Labs/Tests as above Impression/Plan: #COPD/Asthma Exacerbation- with increasing symptoms over last week. She denies any antecedent infection, etc. She had tapered steroids to 40 mg daily prior to this event. Plan: Will bring into medical floor with OBServation status. IV Medrol - as per prior requirements. Nebulizer, etc. Pulmonary consult- Dr. Verdugo. Continue Singulair. Agree with Mucinex. #Acute on Chronic Hypoxic Respiratory Failure- as above, the patient is normally on RA during day and uses 2L nasal at night. Now with 3.5 L to maintain oxygen saturation in normal range. Plan: Will monitor pulse ox and follow. Continue respiratory support. #Chronic Jaw Pain- has been ongoing x 4+ year. The patient takes chronic ocycodone. Plan: Continue usual dose of narcotics at present. Follow pain.
[2017-08-04 17:37] VITALS: BP 110/60
[2017-08-05 07:05] VITALS: BP 112/66
--- NOTE | 2017-08-05 07:52 | PN- Housestaff ---
Tha Negron 08/05/17 0751: Subjective Follow-up For: Asthma exacerbation Subjective: Patient reports chest pain with deep inspiration. No acute events overnight Review of Systems Constitutional: Reports: see HPI. Objective Last 24 Hrs of Vital Signs/I&O Vital Signs Date Time Temp Pulse Resp B/P B/P Pulse O2 O2 Flow FiO2 Mean Ox Delivery Rate 08/05 0934 94 Nasal 3.5L Cannula 08/05 0800 93 Nasal 3.5L Cannula 08/05 0705 97.8 68 20 112/66 96 Room Air 08/05 0000 97 Nasal 3.5L Cannula 08/04 2128 Nasal 3.5L Cannula 08/04 1737 97 Nasal 3.5L Cannula 08/04 1737 98.4 93 20 110/60 97 Nasal 3.5L Cannula 08/04 1604 98.4 99 18 114/62 95 Nasal 3.5L Cannula 08/04 1439 93 Nasal 3.5L Cannula 08/04 1439 93 Nasal 3.5L Cannula 08/04 1251 93 Nasal 2.0L Cannula 08/04 1230 92 Nasal 3.5L Cannula 08/04 1219 97.4 102 24 145/81 91 Nasal 2.0L Cannula Intake & Output 08/05 1600 08/05 0800 08/05 0000 Intake Total 360 1010 Output Total Balance 360 1010 Intake, IV 10 Intake, Oral 360 1000 Patient 170 lb Weight Physical Exam General Appearance: Alert, Oriented X3, Cooperative, on 3LNC Cardiovascular: Regular Rate, Normal S1, Normal S2 Lungs: BL wheezing Abdomen: Normal Bowel Sounds, Soft, No Tenderness Current Medications: Current Medications Sig/Nathan Start time Last Medication Dose Route Stop Time Status Admin Albuterol Sulfate 3 ML BID 08/04 2199 AC 08/05 INH 0852 Albuterol Sulfate 2 PUF Q4-6 PRN PRN 08/04 1630 AC INH Albuterol Sulfate 3 ML ONCE ONE 08/04 1445 DC 08/04 INH 08/04 1446 1439 Albuterol Sulfate 3 ML ONCE ONE 08/04 1230 DC 08/04 INH 08/04 1231 1239 Budesonide/ 2 PUF BID 08/04 2199 08/05 Formoterol Fumarate INH 0912 Enoxaparin Sodium 40 MG DAILY 08/05 1000 AC SC Guaifenesin 600 MG Q12 08/04 2199 AC 08/05 PO 0912 Guaifenesin 10 ML Q4P PRN 08/04 1630 AC 08/04 PO 1938 Guaifenesin/Codeine 10 ML .STK-MED ONE 08/04 1935 DC Phosphate PO 08/04 1936 Hydroxyzine HCl 10 MG DAILY PRN 08/04 1630 AC PO Ipratropium [place] 2.5 ML Q4 HRS NEEDED PRN 08/04 1630 AC INH Ipratropium [place] 2.5 ML ONCE ONE 08/04 1230 DC 08/04 INH 08/04 1231 1239 Loratadine 10 MG DAILY 08/04 1500 AC 08/05 PO 0912 Methylprednisolone 40 MG BID 08/05 1000 AC 08/05 IV 0912 Methylprednisolone 40 MG DAILY 08/04 2033 DC 08/04 IV 2120 Methylprednisolone 0 .STK-MED ONE 08/04 1246 DC .ROUTE Methylprednisolone 125 MG ONCE ONE 08/04 1230 DC 08/04 IV 08/04 1231 1301 Montelukast Sodium 10 MG AT BEDTIME 08/04 2200 AC 08/04 PO 2144 Oxycodone HCl 0 .STK-MED ONE 08/04 1646 DC PO Oxycodone HCl 30 MG Q4H PRN 08/04 1630 AC 08/05 PO 0653 Paroxetine HCl 60 MG DAILY 08/05 1000 AC 08/05 PO 0912 Trazodone HCl 150 MG QPM 08/04 2200 AC 08/04 PO 2121 Trazodone HCl 150 MG .STK-MED ONE 08/047 DC PO 08/04 2117 Last 24 Hrs of Lab/Luke Results Last 24 Hrs of Labs/Mics: Laboratory Tests 08/05/17 0715: Anion Gap 10, Estimated GFR > 60, BUN/Creatinine Ratio 12.9 08/04/17 1753: Urine Opiates Screen > 4000.00 H, Methadone Screen < 40, Barbiturate Screen < 60, Ur Phencyclidine Scrn < 6.00, Amphetamines Screen < 100, U Benzodiazepines Scrn < 85, Urine Cocaine Screen 107, Urine Cannabis Screen < 5.00, Urine Color YEL, Urine Clarity CLEAR, Urine pH 6.0, Ur Specific [place] 1.015, Urine Protein NEG, Urine Ketones TRACE H, Urine Nitrite NEG, Urine Bilirubin NEG, Urine Urobilinogen 1.0, Ur Leukocyte Esterase TRACE H, Ur Microscopic SEDIMENT EXAMINED, Urine RBC RARE, Urine WBC 3-5 H, Ur Epithelial Cells MANY H, Urine Hemoglobin NEG, Urine Glucose >=1000 H, Urine Test NEGATIVE 08/04/17 1300: Anion Gap 11, Estimated GFR > 60, BUN/Creatinine Ratio 8.6, Glucose 95, Calcium 9.3, Total Bilirubin 1.4 H, AST 17, ALT 28, Alkaline Phosphatase 93, Troponin I < 0.01, Total Protein 6.7, Albumin 3.9, Globulin 2.8, Albumin/Globulin Ratio 1.4 , PT 13.1 H, INR 1.20 H, APTT 42 H, CBC w Diff NO MAN DIFF REQ, RBC 4.90, MCV 78.5 L, MCH 25.3 L, MCHC 32.2 L, RDW 15.9 H, MPV 8.0, Gran % 60.9, Lymphocytes % 23.9, Monocytes % 5.2, Eosinophils % 9.5 H, Basophils % 0.5, Absolute Granulocytes 7.5 H, Absolute Lymphocytes 3.0, Absolute Monocytes 0.6, Absolute Eosinophils 1.2, Absolute Basophils 0.1 Microbiology 08/04 1417 NASOPHARYN: Influenza Virus A & B Rapid Smear - COMP Assessment/Plan Assessment: Ms. Vásquez is a 36-year-old woman with history of ??? Cryptogenic pneumonia pending final diagnosis with lung biopsy and multiple admissions for asthma exacerbation was admitted for acute hypoxic respiratory failure secondary to but it seems to be another episode of asthma exacerbation. Problem list: Asthma exacerbation Plan: TRC/nebs PRN Oxygen supplementation as needed, goal O2 >92% Continue IV methylprednisolone 40 twice a day Prednisone taper to scheduled to begin in a.m. Watch off antibiotics, if spikes fever then panculture Pulmonology recommendations appreciated DVT prophylaxis: Refused Diet: Heart healthy Code: Full Problem List: 1. 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 Plan - Observation status, anticipated discharge tomorrow - Solumedrol with outpatient Prednisone - Continue home medications
--- NOTE | 2017-08-05 13:17 | Cons- Pulmonary ---
General Information and HPI Consulting Request Date of Consult: 08/05/17 Requested By: Dr. Belcher Reason for Consult: dyspnea Source of Information: patient Exam Limitations: no limitations History of Present Illness: 36 year old woman. History of asthma, peripheral eosinophilia. 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 She has been on chronic prednisone. Recently paused Bactrim. Awaiting second opinion at the [facility]. She remains hypoxemic on oxygen at home. CXR ill-defined hazy, ground glass opacity resolved since 07/17 eosinophilia Her IgE was elevated as high as 452 (last 120). She may qualify for Xolair therapy. She is currently on spiriva, paxil, claritin, proventil, trazadone, singulair, symbicort, bactrim DS, roxicodone Lovenox for DVT prophylaxis. IV solumedrol 40mg iv q12h No n/v/d/c. No cp. Dyspnea primarily on exertion, wheezing, coughing (dry). Occasional ONEILL, no joint pains or rashes. Patient has been to [facility] for a second opinion she is awaiting to complete their requested workup including bronchoscopy and sleep study which is pending. Allergies/Medications Allergies: Coded Allergies: No Known Allergies (06/19/17) Home Med List: Albuterol Sulfate (Proair Hfa) 90 MCG HFA.AER.AD 2 PUF INH Q4-6 PRN PRN RESPIRATORY (Reported) Budesonide/Formoterol Fumarate (Symbicort 160-4.5 Mcg Inhaler) 160 MCG-4.5 MCG/ ACTUATION HFA.AER.AD 2 PUF INH BID SOB (Reported) Guaifenesin 100 MG/5 ML LIQUID 10 ML PO Q4P PRN COUGH Guaifenesin/Dextromethorphan (Mucinex Dm ER 1,200-60 MG Tab) (Unknown Strength) TBMP.12HR (Unknown Dose) PO BID MUCUS/COUGH (Reported) Hydroxyzine HCl (hydrOXYzine HCl) 10 MG TABLET 10 MG PO DAILY PRN FOR INCREASED HEART RATE (Reported) Loratadine 10 MG TABLET 10 MG PO DAILY ASTHMA . Montelukast Sodium 10 MG TABLET 10 MG PO AT BEDTIME asthma . Oxycodone HCl 30 MG TABLET 1 TAB PO Q4H PRN PAIN (Reported) Paroxetine HCl 30 MG TABLET 2 TAB PO DAILY MENTAL HEALTH (Reported) Prednisone 20 MG TABLET 2 TAB PO DAILY ASTHMA/COPD (Reported) Tiotropium [place] (Spiriva) 18 MCG CAP.W.DEV 1 CAP INH DAILY ASTHMA ( Reported) Trazodone HCl 50 MG TABLET 3 TAB PO QPM SLEEP (Reported) Current Medications: Current Medications Sig/Nathan Start time Last Medication Dose Route Stop Time Status Admin Albuterol Sulfate 3 ML BID 08/04 2200 AC 08/05 INH 0852 Albuterol Sulfate 2 PUF Q4-6 PRN PRN 08/04 1630 AC INH Albuterol Sulfate 3 ML ONCE ONE 08/04 1445 DC 08/04 INH 08/04 1446 1439 Budesonide/ 2 PUF BID 08/04 2200 AC 08/05 Formoterol Fumarate INH 0912 Enoxaparin Sodium 40 MG DAILY 08/05 1000 AC SC Guaifenesin 600 MG Q12 08/04 2200 AC 08/05 PO 0912 Guaifenesin 10 ML Q4P PRN 08/04 1630 AC 08/04 PO 1938 Guaifenesin/Codeine 10 ML .STK-MED ONE 08/04 1935 DC Phosphate PO 08/04 1936 Hydroxyzine HCl 10 MG DAILY PRN 08/04 1630 AC PO Ipratropium [place] 2.5 ML Q4 HRS NEEDED PRN 08/04 1630 AC INH Loratadine 10 MG DAILY 08/04 1500 AC 08/05 PO 0912 Methylprednisolone 40 MG BID 08/05 1000 AC 08/05 IV 0912 Methylprednisolone 40 MG DAILY 08/04 2033 DC 08/04 IV 2120 Montelukast Sodium 10 MG AT BEDTIME 08/04 2200 AC 08/04 PO 2144 Oxycodone HCl 0 .STK-MED ONE 08/04 1646 DC PO Oxycodone HCl 30 MG Q4H PRN 08/04 1630 AC 08/05 PO 1118 Paroxetine HCl 60 MG DAILY 08/05 1000 AC 08/05 PO 0912 Trazodone HCl 150 MG QPM 08/04 2200 AC 08/04 PO 212 Trazodone HCl 150 MG .STK-MED ONE 08/04 2116 DC PO 08/04 2117 Review of Systems Comments 18 point review of systems was performed and reviewed. Please see pertinent positives and pertinent negatives in the HPI. Otherwise ROS is negative. 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 FH: diabetes mellitus UNCLE-MATERNAL (BOOP). GRANDMOTHER-MATERNAL (CHF). Relation not specified for: FH: CAD (coronary artery disease) FH: HTN (hypertension) FH: ovarian cancer FH: uterine cancer Psychosocial History Who Do You Live With? parent Services at Home: None Primary Language: Kiswahili Smoking Status: Never Smoked ETOH Use: denies use Illicit Drug Use: denies illicit drug use Functional Ability ADLs Independent: dressing, eating, toileting, bathing. Ambulation: independent IADLs Independent: shopping, housework, finances, food prep, telephone, transportation , medication admin. Exam & Diagnostic Data Last 24 Hrs of Vital Signs/I&O Vital Signs Date Time Temp Pulse Resp B/P B/P Pulse O2 O2 Flow FiO2 Mean Ox Delivery Rate 08/05 0934 94 Nasal 3.5L Cannula 08/05 0800 93 Nasal 3.5L Cannula 08/05 0705 97.8 68 20 112/66 96 Room Air 08/05 0000 97 Nasal 3.5L Cannula 08/04 2128 Nasal 3.5L Cannula 08/04 1737 97 Nasal 3.5L Cannula 08/04 1737 98.4 93 20 110/60 97 Nasal 3.5L Cannula 08/04 1604 98.4 99 18 114/62 95 Nasal 3.5L Cannula 08/04 1439 93 Nasal 3.5L Cannula 08/04 1439 93 Nasal 3.5L Cannula Intake & Output 08/05 1600 08/05 0800 08/05 0000 Intake Total 360 1010 Output Total Balance 360 1010 Intake, IV 10 Intake, Oral 360 1000 Patient 170 lb Weight Physical Exam Other Physical Findings: gen awake and alert heent ncat cvs s1, s2 lungs rhonchi scattered abd soft, elevated bmi ext without edema Last 48 Hrs of Labs/Luke: Laboratory Tests 08/05/17 0715: Anion Gap 10, Estimated GFR > 60, BUN/Creatinine Ratio 12.9 08/04/17 1753: Urine Opiates Screen > 4000.00 H, Methadone Screen < 40, Barbiturate Screen < 60, Ur Phencyclidine Scrn < 6.00, Amphetamines Screen < 100, U Benzodiazepines Scrn < 85, Urine Cocaine Screen 107, Urine Cannabis Screen < 5.00, Urine Color YEL, Urine Clarity CLEAR, Urine pH 6.0, Ur Specific Caroline 1.015, Urine Protein NEG, Urine Ketones TRACE H, Urine Nitrite NEG, Urine Bilirubin NEG, Urine Urobilinogen 1.0, Ur Leukocyte Esterase TRACE H, Ur Microscopic SEDIMENT EXAMINED, Urine RBC RARE, Urine WBC 3-5 H, Ur Epithelial Cells MANY H, Urine Hemoglobin NEG, Urine Glucose >=1000 H, Urine Test NEGATIVE 08/04/17 1300: Anion Gap 11, Estimated GFR > 60, BUN/Creatinine Ratio 8.6, Glucose 95, Calcium 9.3, Total Bilirubin 1.4 H, AST 17, ALT 28, Alkaline Phosphatase 93, Troponin I < 0.01, Total Protein 6.7, Albumin 3.9, Globulin 2.8, Albumin/Globulin Ratio 1.4 , PT 13.1 H, INR 1.20 H, APTT 42 H, CBC w Diff NO MAN DIFF REQ, RBC 4.90, MCV 78.5 L, MCH 25.3 L, MCHC 32.2 L, RDW 15.9 H, MPV 8.0, Gran % 60.9, Lymphocytes % 23.9, Monocytes % 5.2, Eosinophils % 9.5 H, Basophils % 0.5, Absolute Granulocytes 7.5 H, Absolute Lymphocytes 3.0, Absolute Monocytes 0.6, Absolute Eosinophils 1.2, Absolute Basophils 0.1 Microbiology 08/04 1417 NASOPHARYN: Influenza Virus A & B Rapid Smear - COMP Assessment/Plan Impression/Plan: Impression 36-year-old woman * History of cryptogenic pneumonia and asthma mild exacerbation significantly improved Plan -as of tomorrow begin prednisone at 60mg x 2 days, 50x2, then reduce prednisone to 40 mg and discharge and 40 mg without a taper -Patient has been to [facility] for a second opinion she is awaiting to complete their requested workup including bronchoscopy and sleep study which is pending. -dc planning for tomorrow DVT prophylaxis at all times Consult Acknowledgment - Thank you for your consult request.
[2017-08-05 14:19] VITALS: BP 120/77
[2017-08-05 21:14] VITALS: BP 119/75
[2017-08-06 05:50] VITALS: BP 116/77
--- NOTE | 2017-08-06 07:28 | PN- Housestaff ---
See Addendum Subjective Follow-up For: Asthma exacerbation Subjective: No complaints or acute events overnight Review of Systems Constitutional: Reports: see HPI. Objective Last 24 Hrs of Vital Signs/I&O Vital Signs Date Time Temp Pulse Resp B/P B/P Pulse O2 O2 Flow FiO2 Mean Ox Delivery Rate 08/06 0800 96 Nasal 2.0L Cannula 08/06 0550 97.7 69 20 116/77 95 Nasal 2.0L Cannula 08/06 0000 Nasal 2.0L Cannula 08/05 2114 97.6 108 20 119/75 95 08/05 2008 93 Nasal 2.0L Cannula 08/05 1906 Nasal 2.0L Cannula 08/05 1419 97.7 95 20 120/77 95 Nasal 3.5L Cannula Intake & Output 08/06 1600 08/06 0800 08/06 0000 Intake Total 240 900 Output Total Balance 240 900 Intake, Oral 240 900 Number 0 Bowel Movements Physical Exam General Appearance: Alert, Oriented X3, Cooperative, on 2LNC Cardiovascular: Regular Rate, Normal S1, Normal S2 Lungs: BL wheezing Abdomen: Normal Bowel Sounds, Soft, No Tenderness Current Medications: Current Medications Sig/Nathan Start time Last Medication Dose Route Stop Time Status Admin Albuterol Sulfate 3 ML BID 08/04 220 AC 08/05 INH 2005 Albuterol Sulfate 2 PUF Q4-6 PRN PRN 08/04 1630 AC INH Budesonide/ 2 PUF BID 08/04 2200 AC 08/06 Formoterol Fumarate INH 0946 Enoxaparin Sodium 40 MG DAILY 08/05 1000 AC SC Guaifenesin 600 MG Q12 08/04 2200 AC 08/06 PO 0944 Guaifenesin 10 ML Q4P PRN 08/04 1630 AC 08/04 PO 1938 Hydroxyzine HCl 10 MG DAILY PRN 08/04 1630 AC 08/05 PO 2130 Influenza Virus 0.5 ML ONCE ONE 08/05 1600 DC Vaccine IM 08/05 1601 Ipratropium Carmine 2.5 ML Q4 HRS NEEDED PRN 08/04 1630 AC INH Loratadine 10 MG DAILY 08/04 1500 AC 08/06 PO 0945 Methylprednisolone 40 MG BID 08/05 1000 DC 08/05 IV 08/06 1000 2131 Montelukast Sodium 10 MG AT BEDTIME 08/04 2200 AC 08/05 PO 2130 Oxycodone HCl 30 MG Q4H PRN 08/04 1630 AC 08/06 PO 0944 Paroxetine HCl 60 MG DAILY 08/05 1000 AC 08/06 PO 0944 Prednisone 40 MG DAILY 08/10 1000 AC PO 08/23 1001 Prednisone 50 MG DAILY 08/08 1000 AC PO 08/09 1001 Prednisone 60 MG DAILY 08/06 1000 CAN PO 08/24 0959 Prednisone 60 MG DAILY 08/06 1000 AC 08/06 PO 08/07 1001 0945 Trazodone HCl 150 MG QPM 08/04 2200 AC 08/05 PO 2131 Assessment/Plan Assessment: Ms. Vásquez is a 36-year-old woman with history of ??? Cryptogenic pneumonia pending final diagnosis with lung biopsy and multiple admissions for asthma exacerbation, noncompliant, was admitted for acute hypoxic respiratory failure secondary to but it seems to be another episode of asthma exacerbation. Problem list: Asthma exacerbation Plan: TRC/nebs PRN Oxygen supplementation as needed, goal O2 >92% Discontinue IV methylprednisolone 40 twice a day Start Prednisone taper today Watch off antibiotics, if spikes fever then panculture Pulmonology recommendations appreciated DVT prophylaxis: Refused Diet: Heart healthy Code: Full Problem List: 1. Asthma with acute exacerbation in adult Pain Ratin Pain Location: NA Pain Goal: Remain pain free Pain Plan: NA Tomorrow's Labs & Rationales: None
--- NOTE | 2017-08-06 11:33 | PN- Pulmonary ---
Subjective HPI/Critical Care Issues: pt seen and examined feeling better awaiting dc Objective Current Medications: Current Medications Sig/Nathan Start time Last Medication Dose Route Stop Time Status Admin Albuterol Sulfate 3 ML BID 08/04 2200 AC 08/05 INH 2005 Albuterol Sulfate 2 PUF Q4-6 PRN PRN 08/04 1630 AC INH Budesonide/ 2 PUF BID 08/04 2200 AC 08/06 Formoterol Fumarate INH 0946 Enoxaparin Sodium 40 MG DAILY 08/05 1000 AC SC Guaifenesin 600 MG Q12 08/04 2200 AC 08/06 PO 0944 Guaifenesin 10 ML Q4P PRN 08/04 1630 AC 08/04 PO 1938 Hydroxyzine HCl 10 MG DAILY PRN 08/04 1630 AC 08/05 PO 2130 Influenza Virus 0.5 ML ONCE ONE 08/05 1600 DC Vaccine IM 08/05 1601 Ipratropium [place] 2.5 ML Q4 HRS NEEDED PRN 08/04 1630 AC INH Loratadine 10 MG DAILY 08/04 1500 AC 08/06 PO 0945 Methylprednisolone 40 MG BID 08/05 1000 DC 08/05 IV 08/06 1000 2131 Montelukast Sodium 10 MG AT BEDTIME 08/04 2200 AC 08/05 PO 2130 Oxycodone HCl 30 MG Q4H PRN 08/04 1630 AC 08/06 PO 0944 Paroxetine HCl 60 MG DAILY 08/05 1000 AC 08/06 PO 0944 Prednisone 40 MG DAILY 08/10 1000 AC PO 08/23 1001 Prednisone 50 MG DAILY 08/08 1000 AC PO 08/09 1001 Prednisone 60 MG DAILY 08/06 1000 CAN PO 08/24 0959 Prednisone 60 MG DAILY 08/06 1000 AC 08/06 PO 08/07 1001 0945 Trazodone HCl 150 MG QPM 08/04 2200 AC 08/05 PO 2131 Vital Signs & I&O Last 24 Hrs of Vitals and I&O: Vital Signs Date Time Temp Pulse Resp B/P B/P Pulse O2 O2 Flow FiO2 Mean Ox Delivery Rate 08/06 1054 93 Nasal 2.0L Cannula 08/06 0800 96 Nasal 2.0L Cannula 08/06 0550 97.7 69 20 116/77 95 Nasal 2.0L Cannula 08/06 0000 Nasal 2.0L Cannula 08/05 2113 97.6 108 20 119/75 95 08/06 2007 93 Nasal 2.0L Cannula 08/05 1906 Nasal 2.0L Cannula 08/05 1419 97.7 95 20 120/77 95 Nasal 3.5L Cannula Intake & Output 08/06 1600 08/06 0800 08/06 0000 Intake Total 240 900 Output Total Balance 240 900 Intake, Oral 240 900 Number 0 Bowel Movements Exam Other Physical Findings: gen awake and alert heent ncat cvs s1, s2 lungs rhonchi scattered abd soft, elevated bmi ext without edema Impression/Plan Impression/Plan Impression/Plan: Impression 36-year-old woman * History of cryptogenic pneumonia and asthma mild exacerbation significantly improved Plan -as of tomorrow begin prednisone at 60mg x 2 days, 50x2, then reduce prednisone to 40 mg and discharge and 40 mg without a taper -Patient has been to [facility] for a second opinion she is awaiting to complete their requested workup including bronchoscopy and sleep study which is pending. DVT prophylaxis at all times okay for dc
--- NOTE | 2017-08-06 13:25 | Patient Discharge Instructions ---
Discharge Instructions General Discharge Information You were seen/treated for: Asthma exacerbation You had these procedures: none Special Instructions: Follow up with [facility] for bronchoscopy and sleep study Follow up with your PCP within 1-2 weeks after discharge Go to your outpatient psychiatry at appt [address] August 18 @9:15 Diet Recommended Diet: Heart Healthy Activity Other activity limits: As tolerated Acute Coronary Syndrome Inclusion Criteria At DC or during hospital stay patient has or had the following: ACS DIAGNOSIS No Discharge Core Measures Meds if any: Prescribed or Continued at Discharge Meds if any: NOT Prescribed or Continued at Discharge Congestive Heart Failure Inclusion Criteria At DC or during hospital stay patient has or had the following: CHF DIAGNOSIS No Discharge Core Measures Meds if any: Prescribed or Continued at Discharge Meds if any: NOT Prescribed or Continued at Discharge Cerebrovascular accident Inclusion Criteria At DC or during hospital stay patient has or had the following: CVA/TIA Diagnosis No Discharge Core Measures Meds if any: Prescribed or Continued at Discharge Meds if any: NOT Prescribed or Continued at Discharge Venous thromboembolism Inclusion Criteria VTE Diagnosis No VTE Type NONE VTE Confirmed by (Test) NONE Discharge Core Measures - Per Current guidelines, there needs to be overlap - treatment for the first 5 days of Warfarin therapy. - If discharged on Warfarin prior to 5 days of - overlap therapy, the patient will need to be - assessed for post discharge needs including - *Post discharge parental anticoagulation - *Warfarin and/or parental anticoagulation education - *Follow up date to check INR post discharge At least 5 days overlap therapy as Inpatient No Meds if any: Prescribed or Continued at Discharge Note: Overlap Therapy is Warfarin and Anticoagulant Meds if any: NOT Prescribed or Continued at Discharge
[2017-08-06] MEDS ORDERED: PREDNISONE10 M2 PO (13:28)
[2017-08-06] MEDS ORDERED: SPIRIVA18 MCG INH ×2 (14:17→15:13)
[2017-08-06] MEDS ORDERED: SYMBICORT 16010.2 GM INH ×2 (14:17→15:13)
[2017-08-06] MEDS ORDERED: PROAIR HFA8.5 GM INH ×2 (14:17→15:13)
[2017-08-06 15:00] VITALS: BP 134/86
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
== END 2017-08-06 16:43 ==
LOC: ERH 12:08 → 2NB 15:15 → ERHI 15:15 → ENRESERV 16:19 → ENTRNSPT 16:54 → 2NB 17:30 → EDTRNSPT 17:36 → EDTRNSPTSTS 17:36 → CMPTRNSPT 17:38 → 2NB 08-06 16:43
PROVIDERS: Physician Assistant
DX: J45.901 Unspecified asthma with (acute) exacerbation (principal); Z99.81 Dependence on supplemental oxygen; J96.01 Acute respiratory failure with hypoxia; G89.29 Other chronic pain; E87.6 Hypokalemia; F41.9 Anxiety disorder, unspecified; F32.9 Major depressive disorder, single episode, unspecified; G47.00 Insomnia, unspecified; D72.1 Eosinophilia; J30.2 Other seasonal allergic rhinitis; Z79.51 Long term (current) use of inhaled steroids; F11.20 Opioid dependence, uncomplicated; M79.7 Fibromyalgia; K59.00 Constipation, unspecified; K58.9 Irritable bowel syndrome, unspecified; Z91.14 Patient's other noncompliance with medication regimen; Z79.899 Other long term (current) drug therapy
CPT/HCPCS: 1263; 1328; 1425; 1530; 1748; 36592; 71045; 80307; 81001; 81025; 82436; 87804; 87804-59; 93005; 93010; 96374; 96376; 99291; G0378; J1650; J2920; J2930; J3490

== ENCOUNTER 2017-09-15 16:15 | Inpatient (IN) | payer OTHER, MEDICARE ==
[~2017-09-15] VITALS: Ht 157.5 cm; Wt 81.6 kg
--- NOTE | 2017-09-15 17:11 | ED DYSPNEA/ASTHMA COMPLAINT ---
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 Source: patient Exam Limitations: no limitations Vital Signs & Intake/Output Vital Signs & Intake/Output Vital Signs Date Time Temp Pulse Resp B/P B/P Pulse O2 O2 Flow FiO2 Mean Ox Delivery Rate 09/15 2217 98.1 97 18 110/80 92 Nasal 2.0L Cannula 09/15 2217 92 Nasal 2.0L Cannula 09/15 2202 97.8 106 20 128/73 94 Nasal 2.0L Cannula 09/15 1955 97.2 100 18 120/89 96 09/15 1842 94 Nasal 3.0L Cannula 09/15 1720 Room Air 09/15 1636 97 Aerosol 6.0L Mask 09/15 1621 97.8 130 20 138/87 84 Room Air ED Intake and Output 09/16 0000 09/15 1200 Intake Total 190 Output Total 0 Balance 190 Intake, IV 10 Intake, Oral 180 Number 0 Bowel Movements Output, Urine 0 Patient 180 lb Weight Weight Reported by Patient Measurement Method Allergies Coded Allergies: No Known Allergies (06/19/17) Triage Note: PT STATES SHE HAS ASTHMA AND IS FEELING SOB. PT 02 SAT 86 ON RA. PT BROUGHT INTO TRIAGE HARJEET GOPI IN ROOM FOR EVAL. PT DOES USE 02 PRN ARRIVES TO ED WITHOUT. PT HAS AUDIBLE WHEEZING IN TRIAGE. PT STATSE SHE IS UNABLE TO EXPECTORATE WITH HER COUGH. Triage Nurses Notes Reviewed? yes Onset: Gradual Duration: week(s):, constant, changing over time, continues in ED, getting worse , waxing and waning : No Patient currently breastfeeds: No HPI: Patient presents for evaluation of worsening dyspnea over the past 3 weeks. Patient states she has a combination of asthma and cryptogenic organizing pneumonia and has had no improvement with use of home nebulizers, prednisone and metered-dose inhalers. She states her oxygen saturations have been as low as 70 %. She denies any associated fever leg pain or leg swelling. She likewise denies any recent travel. She states she is experiencing a bilateral chest pain when she coughs. (Hamida CHAPARRO,Jackson Hu) Reconcile Medications Albuterol Sulfate (Proair Hfa) 90 MCG HFA.AER.AD 2 PUF INH Q4-6 PRN PRN RESPIRATORY . Budesonide/Formoterol Fumarate (Symbicort 160-4.5 Mcg Inhaler) 160 MCG-4.5 MCG/ ACTUATION HFA.AER.AD 2 PUF INH BID SOB . Gabapentin (Neurontin) 300 MG CAPSULE 1 CAP PO TID nerve pain (Reported) Hydroxyzine HCl (hydrOXYzine HCl) 10 MG TABLET 10 MG PO DAILY PRN FOR ALLERGY (Reported) Loratadine 10 MG TABLET 10 MG PO DAILY ASTHMA . Montelukast Sodium 10 MG TABLET 10 MG PO AT BEDTIME asthma . Oxycodone HCl 30 MG TABLET 1 TAB PO Q4H PRN PAIN (Reported) Paroxetine HCl 30 MG TABLET 2 TAB PO DAILY MENTAL HEALTH (Reported) Prednisone 10 MG TABLET 40 MG PO DAILY HAND WINDER (Reported) Tiotropium [place] (Spiriva) 18 MCG CAP.W.DEV 1 CAP INH DAILY ASTHMA . Trazodone HCl 50 MG TABLET 3 TAB PO QPM SLEEP (Reported) (Maximus CHAPARRO,Jose Rodgers) Past History Travel History Traveled to [place] past 21 day No Medical History Any Pertinent Medical History? 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 FH: diabetes mellitus UNCLE-MATERNAL (BOOP). GRANDMOTHER-MATERNAL (CHF). Relation not specified for: FH: CAD (coronary artery disease) FH: HTN (hypertension) FH: ovarian cancer FH: uterine cancer Hx Contributory? No (Hamida CHAPARRO,Jackson Hu) Review of Systems Review of Systems Constitutional: Reports: no symptoms. EENTM: Reports: no symptoms. Respiratory: Reports: see HPI. Cardiovascular: Reports: no symptoms. GI: Reports: no symptoms. Genitourinary: Reports: no symptoms. Musculoskeletal: Reports: no symptoms. Skin: Reports: no symptoms. Neurological/Psychological: Reports: no symptoms. Hematologic/Endocrine: Reports: no symptoms. Immunologic/Allergic: Reports: no symptoms. All Other Systems: Reviewed and Negative (Hamida CHAPARRO,Jackson Hu) Physical Exam Physical Exam Respiratory: SEE BELOW Comments: Gen.: Well-nourished, well-developed, no acute respiratory distress. Head: Normocephalic, atraumatic. Eyes: Normal inspection bilaterally Ears: Normal inspection bilaterally Nose: Normal inspection Throat/mouth : Moist mucosa Neck: Supple, full range of motion, no goiter Heart: Regular rate and rhythm, no murmurs rubs or gallops Lungs: Diffuse harsh breath sounds and end expiratory wheezing with bronchospastic cough Chest: Nontender Back: Normal range of motion Abdomen: Soft, nontender, nondistended, normal bowel sounds Extremities: Normal range of motion grossly, equal radial pulses, no cyanosis clubbing or edema Neurologic: Cranial nerves grossly intact, speech is clear Skin: warm and dry Psychiatric: Calm, cooperative, no apparent delusions or hallucinations Core Measures ACS in differential dx? No CVA/TIA Diagnosis No Sepsis Present: No Sepsis Focused Exam Completed? No (Hamida CHAPARRO,Jackson Hu) Progress Differential Diagnosis: ASTHMA, copd, BRONCHITIS, PNEUMONIA, EFFUSION, PULMONARY EMBOLISM Plan of Care: Orders Procedure Date/time Status CBC WITHOUT DIFFERENTIAL 09/16 06 Active BASIC ELECTROLYTES PLUS BUN&CR 09/16 06 Active Pathway - chart 09/15 2302 Active House Staff 09/15 2302 Active EKG 09/16 2231 Active Weight 09/15 2224 Active Vital Signs 09/15 2224 Active Teach/Educate 09/15 2224 Active Pain Treatment and Response 09/15 2224 Active Nutritional Intake, Monitor 09/15 2224 Active Isolation 09/15 2224 Active Intake & Output 09/15 2224 Active Patient Care Conference 09/15 2224 Active Activity/Ambulation 09/15 2224 Active Intake & Output 09/15 2202 Active Patient Data 09/15 2120 Active Misc Message 09/15 2105 Active ED Holding Orders 09/15 2105 Active Admit to inpatient 09/15 2105 Active Code Status 09/15 2105 Active Saline Lock 09/15 162 Active BLOOD CULTURE 09/15 1620 Active LACTIC ACID 09/15 1620 Complete COMPREHENSIVE METABOLIC PANEL 09/15 162 Complete CBC WITHOUT DIFFERENTIAL 09/15 162 Complete VTE Mechanical Prophylaxis 09/15 UNK Active Current Medications Sig/Nathan Start time Last Medication Dose Stop Time Status Admin Montelukast Sodium 10 MG AT BEDTIME 09/16 2099 AC (Singulair) Trazodone HCl 150 MG QPM 09/16 2099 AC (Desyrel) Enoxaparin Sodium 40 MG DAILY 09/16 899 AC (Lovenox) Gabapentin 300 MG TID 09/16 899 AC (Neurontin) Loratadine 10 MG DAILY 09/16 09 AC (Claritin) Paroxetine HCl 60 MG DAILY 09/16 899 AC (Paxil) Oxycodone HCl 30 MG Q4P PRN 09/15 224 AC 09/15 (Roxicodone) 2349 Laboratory Tests 09/15/17 1920: Lactic Acid Cancelled 09/15/17 1700: Anion Gap 11, Estimated GFR > 60, BUN/Creatinine Ratio 14.3, Glucose 89, Lactic Acid 1.2, Calcium 9.4, Total Bilirubin 0.8, AST 16, ALT 15, Alkaline Phosphatase 93, Total Protein 7.2, Albumin 4.2, Globulin 3.0, Albumin/Globulin Ratio 1.4, CBC w Diff NO MAN DIFF REQ, RBC 5.01, MCV 76.9 L, MCH 24.8 L, MCHC 32.2 L, RDW 15.4 H, MPV 8.8, Gran % 68.1, Lymphocytes % 19.8 L, Monocytes % 4.7, Eosinophils % 7.1 H, Basophils % 0.3, Absolute Granulocytes 10.1 H, Absolute Lymphocytes 2.9, Absolute Monocytes 0.7 H, Absolute Eosinophils 1.1, Absolute Basophils 0 Microbiology 09/15 1730 BLOOD: Blood Culture - RECD 09/15 170 BLOOD: Blood Culture - RECD Initial ED EKG: none Comments: 09/15/2017 5:52:01 PM patient's case discussed with Dr. Verdugo who agrees with nebulizers and steroids. He does not feel imaging studies are necessary at this time. 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 (Hamida CHAPARRO,Jackson Hu) Diagnostic Imaging: Viewed by Me: Radiology Read. Discussed w/RAD: Radiology Read. CXR Impression: PATIENT: TERESA RODRIGEZ PRESENT AGE : 36 PATIENT ACCOUNT NO: [id number] : 81 LOCATION: [facility] ORDERING PHYSICIAN: Jose Stroud MD SERVICE DATE: 09/15/17 EXAM TYPE: RAD - XRY-CHEST XRAY, TWO VIEWS EXAMINATION: XR CHEST CLINICAL INFORMATION: Dyspnea. COMPARISON: Chest x-ray from 08/04/2017. TECHNIQUE: 2 views of the chest were obtained. FINDINGS: There is mild indistinctness and prominence of the central vascular markings. There is patchy opacity along the right heart border inferiorly in the infrahilar region which was not visible on the prior study. The left lung is clear. No pleural effusions are seen. The cardiomediastinal silhouette is normal. No acute osseous abnormality is seen. IMPRESSION: Mild patchy opacity along the inferior right heart border is suspicious for developing right middle lobe pneumonia. Prominence and indistinctness of the central lung markings may be due to a mild degree of pulmonary vascular congestion; clinically correlate. Recommend follow-up imaging to resolution. DICTATED BY: Raúl Curiel MD DATE/TIME DICTATED:09/15/172045 DENTIST/OWNER:NABOR DATE/TIME TRANSCRIBED:09/15/172045 CONFIDENTIAL, DO NOT COPY WITHOUT APPROPRIATE AUTHORIZATION. <Electronically signed in Other Vendor System> SIGNED BY: Raúl Curiel MD 09/15/172051 (Maximus CHAPARRO,Jose Rodgers) Departure Departure Disposition: STILL A PATIENT Condition: Stable Clinical Impression Primary Impression: Asthma exacerbation Qualifiers: Asthma severity: severe Asthma persistence: persistent Qualified Code: J45.51 - Severe persistent asthma with (acute) exacerbation Referrals: James CHAPARRO,Socrates Mehta (PCP/Family) Departure Forms: Customer Survey General Discharge Information (Hamida CHAPARRO,Jackson Hu) Departure Comments 09/15/17, 20:06... Pt reports that she is feeling only marginally better... has an o2 requirement.... will check cxr and admit. Admission Note Spoke With: Zak Sky MD Documentation of Exam: Documentation of any treatments & extenuating circumstances including Concerns Regarding Discharge (functional status, medication knowledge or non-compliance, living conditions, etc.) that warrant an admission rather than observation: pt with crytogenic organizing pneumonia, dropped her 02 sat to 79% at home, was 84% in ED, requiring 02 supplementation... pt merits iv steroids, nebs, pulm consult in AM. cxr suspicious for pna... however, pt appears to have recurrent exacerbation... will defer abx to hospital team. (Maximus CHAPARRO,Jose Rodgers) Critical Care Note Critical Care Note Critical Care Time: 30-74 min (Hamida CHAPARRO,Jackson Hu)
[2017-09-15 17:20] LABS: ABSOLUTE BASOPHIL COUNT 0 /CUMM (0.0-0.2); ABSOLUTE EOSINOPHIL COUNT 1.1 /CUMM (0.0-0.7); ABSOLUTE GRANULOCYTE CT 10.1 /CUMM (1.4-6.5); ABSOLUTE LYMPH COUNT 2.9 /CUMM (1.2-3.4); ABSOLUTE MONOCYTE COUNT 0.7 /CUMM (0.10-0.60); BASOPHIL % 0.3 % (0.0-2.0); EOSINOPHIL % 7.1 % (0-5); GRANULOCYTE % 68.1 % (42.2-75.2); HEMATOCRIT 38.5 % (37-47); MEAN CORPUSCULAR HGB 24.8 PG (27.0-31.0); MEAN CORPUSCULAR HGB CONC 32.2 G/DL (33.0-37.0); MEAN CORPUSCULAR VOLUME 76.9 FL (81.0-99.0); MEAN PLATELET VOLUME 8.8 FL (7.4-10.4); PLATELET COUNT 343 /CUMM (130-400); RBC DISTRIBUTION WIDTH 15.4 % (11.5-14.5); RED BLOOD CELL CT 5.01 /CUMM (4.20-5.40); WHITE BLOOD CELL COUNT 14.8 /CUMM (4.8-10.8)
--- NOTE | 2017-09-15 20:52 | RADIOLOGY REPORT ---
EXAMINATION: XR CHEST CLINICAL INFORMATION: Dyspnea. COMPARISON: Chest x-ray from 08/04/2017. TECHNIQUE: 2 views of the chest were obtained. FINDINGS: There is mild indistinctness and prominence of the central vascular markings. There is patchy opacity along the right heart border inferiorly in the infrahilar region which was not visible on the prior study. The left lung is clear. No pleural effusions are seen. The cardiomediastinal silhouette is normal. No acute osseous abnormality is seen. IMPRESSION: Mild patchy opacity along the inferior right heart border is suspicious for developing right middle lobe pneumonia. Prominence and indistinctness of the central lung markings may be due to a mild degree of pulmonary vascular congestion; clinically correlate. Recommend follow-up imaging to resolution.
--- NOTE | 2017-09-15 21:23 | History & Physical ---
Tha Negron 09/15/173: General Information and HPI History of Present Illness: Ms. Vásquez is a 36 year old female with PMH of asthma/COPD on 2L home oxygen, peripheral eosinophilia, cryptogenic organizing pneumonia without biopsy, TMJ, multiple admissions for asthma exacerbation who presents to the ED with worsening SOB. Patient reports for the past 3 weeks after being discharged from the hospital for asthma exacerbation she has been short of breath with a oxygen saturation 89-90% at rest and while ambulating. Her home nebulizing treatments and rescue inhaler did not provide any relief. She also reports a sharp chest pain with deep inspiration, a cough with yellowish sputum production accompanied by chills and sweats. Today she had a syncopal episode that lasted approximately 2 minutes though no witnesses present. She broke her glasses but denies head trauma. She reports she has a history of syncopal episodes and is seen by a neurologist. Two days ago she had one episode of vomiting and has had a poor appetite. She has an upcoming appointment at [facility] . Two weeks ago she was placed on gabapentin by her neurologist for nerve pain, paresthesias and anxiety. Allergies/Medications Allergies: Coded Allergies: No Known Allergies (06/19/17) Past History Travel History Traveled to [place] past 21 day No Medical History Neurological: FIBROMYALGIA EENT: TMJ arthritis s/p jaw surgery at [facility] 2010 Cardiovascular: syncope (vasovagal(has had cardio eval)) Respiratory: asthma, bronchitis, pneumonia, CRYPTOGENIC ORGANIZING PNA Gastrointestinal: constipation (IBS), irritable bowel syndrome Hepatic: NONE Renal: NONE Musculoskeletal: fibromyalgia Psychiatric: anxiety Endocrine: NONE Blood Disorders: NONE Cancer(s): NONE [employer]/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 FH: diabetes mellitus UNCLE-MATERNAL (BOOP). GRANDMOTHER-MATERNAL (CHF). Relation not specified for: FH: CAD (coronary artery disease) FH: HTN (hypertension) FH: ovarian cancer FH: uterine cancer Psychosocial History Who Do You Live With? parent Services at Home: None Primary Language: Citizen Of [place] ETOH Use: occasional use Illicit Drug Use: denies illicit drug use Functional Ability ADLs Independent: dressing, eating, toileting, bathing. Ambulation: independent IADLs Independent: shopping, housework, finances, food prep, telephone, transportation , medication admin. Review of Systems Review of Systems Constitutional: Reports: see HPI. Exam & Diagnostic Data Last 24 Hrs of Vital Signs/I&O Vital Signs Date Time Temp Pulse Resp B/P B/P Pulse O2 O2 Flow FiO2 Mean Ox Delivery Rate 09/15 2217 98.1 97 18 110/80 92 Nasal 2.0L Cannula 09/15 2217 92 Nasal 2.0L Cannula 09/15 2202 97.8 106 20 128/73 94 Nasal 2.0L Cannula 09/15 1954 97.2 100 18 120/89 96 09/15 1842 94 Nasal 3.0L Cannula 09/15 1720 Room Air 09/15 1636 97 Aerosol 6.0L Mask 09/15 1621 97.8 130 20 138/87 84 Room Air Intake & Output 09/16 0800 09/16 0000 09/15 1600 Intake Total 190 Output Total 0 Balance 190 Intake, IV 10 Intake, Oral 180 Number 0 Bowel Movements Output, Urine 0 Patient 180 lb Weight Weight Reported by Patient Measurement Method Physical Exam General Appearance Alert, Oriented X3, Cooperative, on 3LNC, obese HEENT Atraumatic, PERRLA, EOMI, Mucous Membr. moist/pink Neck Supple, No JVD Cardiovascular Regular Rate, Normal S1, Normal S2, No Murmurs Lungs bilateral wheezing Abdomen Normal Bowel Sounds, Soft, No Tenderness Extremities No Edema, No Tenderness/Swelling Last 24 Hrs of Labs/Luke: Laboratory Tests 09/15/171919: Lactic Acid Cancelled 09/15/17 1700: Anion Gap 11, Estimated GFR > 60, BUN/Creatinine Ratio 14.3, Glucose 89, Lactic Acid 1.2, Calcium 9.4, Total Bilirubin 0.8, AST 16, ALT 15, Alkaline Phosphatase 93, Total Protein 7.2, Albumin 4.2, Globulin 3.0, Albumin/Globulin Ratio 1.4, CBC w Diff NO MAN DIFF REQ, RBC 5.01, MCV 76.9 L, MCH 24.8 L, MCHC 32.2 L, RDW 15.4 H, MPV 8.8, Gran % 68.1, Lymphocytes % 19.8 L, Monocytes % 4.7, Eosinophils % 7.1 H, Basophils % 0.3, Absolute Granulocytes 10.1 H, Absolute Lymphocytes 2.9, Absolute Monocytes 0.7 H, Absolute Eosinophils 1.1, Absolute Basophils 0 Microbiology 09/15 1730 BLOOD: Blood Culture - RECD 09/15 1700 BLOOD: Blood Culture - RECD Diagnostic Data CXR Results IMPRESSION: Mild patchy opacity along the inferior right heart border is suspicious for developing right middle lobe pneumonia. Prominence and indistinctness of the central lung markings may be due to a mild degree of pulmonary vascular congestion; clinically correlate. Recommend follow-up imaging to resolution. Assessment/Plan Assessment: Ms. Vásquez is a 36 year old female with PMH asthma/COPD on 2L home oxygen, peripheral eosinophilia, cryptogenic organizing pneumonia without biopsy, multiple admissions for asthma exacerbation who presents to the ED with worsening SOB. Problem list: Asthma exacerbation Plan: Admit to general [facility] for further evaluation and management TRC/nebs PRN IV methylprednisolone 40 mg q8 Resume home medications Pulm consult Diet: Regular DVT ppx: Enoxaparin Code:Full As Ranked By This Provider Problem List: 1. Asthma exacerbation Qualifiers Asthma severity: severe Asthma persistence: persistent Qualified Code: J45.51 - Severe persistent asthma with (acute) exacerbation Core Measures/Misc (02/09) Acute Coronary Syndrome ACS Diagnosis: No Congestive Heart Failure Congestive Heart Failure Diagnosis No Cerebrovascular Accident CVA/TIA Diagnosis: No VTE (View Protocol) VTE Risk Factors Obesity No Mechanical VTE Prophylaxis d/t N/A MechProphylax Ordered No VTE Pharm Prophylaxis d/t NA PharmProphylax ordered Sepsis (View protocol) Sepsis Present: No Ghislaine Barnes 09/16/17 0415: General Information and HPI Allergies/Medications Home Med list Albuterol Sulfate (Proair Hfa) 90 MCG HFA.AER.AD 2 PUF INH Q4-6 PRN PRN RESPIRATORY . Budesonide/Formoterol Fumarate (Symbicort 160-4.5 Mcg Inhaler) 160 MCG-4.5 MCG/ ACTUATION HFA.AER.AD 2 PUF INH BID SOB . Gabapentin (Neurontin) 100 MG CAPSULE 1 CAP PO TID pain (Reported) Hydroxyzine HCl (hydrOXYzine HCl) 10 MG TABLET 10 MG PO DAILY PRN FOR ALLERGY (Reported) Loratadine 10 MG TABLET 10 MG PO DAILY ASTHMA . Montelukast Sodium 10 MG TABLET 10 MG PO AT BEDTIME asthma . Oxycodone HCl 30 MG TABLET 1 TAB PO Q4H PRN PAIN (Reported) Paroxetine HCl 30 MG TABLET 2 TAB PO DAILY MENTAL HEALTH (Reported) Prednisone 10 MG TABLET 40 MG PO DAILY [employer] (Reported) Tiotropium Chelsea (Spiriva) 18 MCG CAP.W.DEV 1 CAP INH DAILY ASTHMA . Trazodone HCl 50 MG TABLET 3 TAB PO QPM SLEEP (Reported) Resident Review Statement Resident Statement: examined this patient, discussed with procurement internship, agreed with procurement internship, discussed with family, amended to note Other Findings: 36 YO lady woth PMH of assumed [employer] (not biopsied), allergy to dust, TMJ disorder ,chronic fibromyalgia, mild COPD with reversible terminal airway disease on 2 lit nocturnal O2 PRN, was been admitted to [facility] multiple times for shortness of breath and wheezing, came to the hospital with chief complaint of shortness of breath and wheezing. She be noted that patient was discharged about 1 months ago for the same chief complaint from the hospital. Patient reports that every time that she gets discharged from the hospital she has good respiratory status for 2 weeks and after that she develops shortness of breath on exertion and then at baseline and wheezing with low O2 saturation around 89-90% at rest at home. She reports she had mild sputum production with cough and mild chills recently. She also reported that she has history of syncopal episodes which been worked up by her neurologist. The last episode was in the morning, not witnessed and no head trauma. She is taking prednisone 40 mg daily Patient reports that she is supposed to go to [facility] this week. Vital signs in ED was initially notable for tachycardia and hypoxia which improved after getting the [facility] treatment and upon admission there was no fever, no T2 O2 saturation on 2 L, blood pressure 110/80 and heart rate were 97 Notable finding physical exam is bilateral expiratory wheezing Heart S1-S2 normal Abdomen nontender alert and oriented 3 Full details above Labs are notable for WBC 14.7,MCV 76.9, hemoglobin 12.4, HCO3 32, chloride 95 CXR Mild patchy opacity along the inferior right heart border is suspicious for developing right middle lobe pneumonia. Prominence and indistinctness of thecentral lung markings may be due to a mild degree of pulmonary vascular congestion; clinically correlate. Recommend follow-up imaging to resolution. no EKG Assessment # Shortness of breath due to COPD -Admit to general medicine floor -No abx -Consultation with Dr. Verdugo In the morning -IV Solu-Medrol 40 mg every 8 for now -TRC nebs and O2 therapy -Continue Symbicort and Spiriva -Continue Singulair, loratadine #History of TMJ pain, fibromyalgia,Insomnia -Continue oxycodone when necessary, paroxetine, trazodone, gabapentin #Full code, DVT prophylaxis is subQ Lovenox and mechanical, regular diet, oxycodone and Tylenol for pain Zak Sky 09/16/17 0438: Attending MD Review Statement Attending Statement Attending MD Statement: examined this patient, discuss w/resident/PA/BUS AND RAIL OPERATOR, agreed w/resident/PA/BUS AND RAIL OPERATOR, reviewed EMR data (avail), reviewed images, amended to note Attending Assessment/Plan: Cc: worsening of SOB PMH: Asthma, cryptogenic organizing pneumonia currently on steroid, Depression, Chronic jaw pain Patient comes to ER with 3 wk history of gradual worsening of shortness of breath, wheezing. She also endorses productive cough with yellowish sputum and chest pain with deep breathing. She denies fever or chills. Patient is chronically on steroid, currently on 40 mg PO. Her oxygen saturations dropped very low this morning so she came to ER. Otherwise ROS unremarkable. She has not followed up for bronchoscopy and biopsy yet. She fainted today when she got up from the bed all of a sudden and states that this happens to her often. Vitals: Temperature 97.8, tachycardic at 130 on arrival, pulse improved to 97, RR 20, blood pressure 144/94, saturating 84 % on arrival, improved to 94% on 2 L nasal cannula On exam: A O 3, mild respiratory distress, anxious, neck supple, no lymphadenopathy, mucosa dry, bilateral eardrum intact, no discharge or any fluid level. CVS: S1-S2, RRR. RS: Mild wheezing heard bilaterally with prolonged expiration. Abdomen soft, NT, ND, no guarding are rigidity, bowel sounds present. No focal neurological deficit. Peripheral pulses perfusion normal CXR: Mild patchy opacity along the inferior right heart border is suspicious for developing right middle lobe pneumonia. Prominence and indistinctness of the central lung markings may be due to a mild degree of pulmonary vascular congestion; clinically correlate. Recommend follow-up imaging to resolution. Assessment and plan 36-year-old female with extensive past medical history for presumed cryptogenic organizing pneumonia without any biopsy-proven diagnosis and asthma presented in ER for worsening of shortness of breath, pleuritic pain, productive cough, worsened over 3 weeks. She presented hypoxic at 84%, improved with O2 by nasal cannula and nebulization treatment. This appears in exacerbation of asthma, chest examination diffuse bilateral wheezing prolonged expiration with suspicion of cryptogenic organizing pneumonia or other interstitial lung disease. Patient is noncompliant about following up outpatient for biopsy or bronchoscopy . Leukocytosis can be secondary to steroid use. He would get pulmonology opinion for further recommendations. For now will continue IV steroids, no antibiotics, TRC nebs, oxygen support. Low probability of PE. # asthma exacerbation and presumed cryptogenic organizing pneumonia/ILD # Hx of chronic pain at left jaw, depression - Admit to GEN med - Continue methylprednisolone 40 mg every 8 hours - scheduled and when necessary albuterol nebulization, - continue oxygen by nasal cannula, weaned off gradually - No antibiotics for now - Pulmonary consult - ABG in a.m. if persistently hypoxic - continue her home doses of pain medications - DVT prophylaxis - Continue Accu-Cheks : Chronic prednisone use, significant weight gain As Ranked By This Provider Problem List: 1. Asthma exacerbation Qualifiers Asthma severity: severe Asthma persistence: persistent Qualified Code: J45.51 - Severe persistent asthma with (acute) exacerbation Core Measures/Misc (02/09) Acute Coronary Syndrome ACS Diagnosis: No Congestive Heart Failure Congestive Heart Failure Diagnosis No Cerebrovascular Accident CVA/TIA Diagnosis: No VTE (View Protocol) VTE Risk Factors Obesity No Mechanical VTE Prophylaxis d/t N/A MechProphylax Ordered No VTE Pharm Prophylaxis d/t NA PharmProphylax ordered Sepsis (View protocol) Sepsis Present: No Ghislaine Barnes 09/16/17 2662: General Information and HPI Allergies/Medications Home Med list Albuterol Sulfate (Proair Hfa) 90 MCG HFA.AER.AD 2 PUF INH Q4-6 PRN PRN RESPIRATORY . Budesonide/Formoterol Fumarate (Symbicort 160-4.5 Mcg Inhaler) 160 MCG-4.5 MCG/ ACTUATION HFA.AER.AD 2 PUF INH BID SOB . Gabapentin (Neurontin) 100 MG CAPSULE 1 CAP PO TID pain (Reported) Hydroxyzine HCl (hydrOXYzine HCl) 10 MG TABLET 10 MG PO DAILY PRN FOR ALLERGY (Reported) Loratadine 10 MG TABLET 10 MG PO DAILY ASTHMA . Montelukast Sodium 10 MG TABLET 10 MG PO AT BEDTIME asthma . Oxycodone HCl 30 MG TABLET 1 TAB PO Q4H PRN PAIN (Reported) Paroxetine HCl 30 MG TABLET 2 TAB PO DAILY MENTAL HEALTH (Reported) Prednisone 10 MG TABLET 40 MG PO DAILY [employer] (Reported) Tiotropium Chelsea (Spiriva) 18 MCG CAP.W.DEV 1 CAP INH DAILY ASTHMA . Trazodone HCl 50 MG TABLET 3 TAB PO QPM SLEEP (Reported) Resident Review Statement Resident Statement: examined this patient, discussed with procurement internship, agreed with procurement internship, discussed with family, amended to note Other Findings: 36 YO lady woth PMH of assumed [employer] (not biopsied), allergy to dust, TMJ disorder ,chronic fibromyalgia, mild COPD with reversible terminal airway disease on 2 lit nocturnal O2 PRN, was been admitted to [facility] multiple times for shortness of breath and wheezing, came to the hospital with chief complaint of shortness of breath and wheezing. She be noted that patient was discharged about 1 months ago for the same chief complaint from the hospital. Patient reports that every time that she gets discharged from the hospital she has good respiratory status for 2 weeks and after that she develops shortness of breath on exertion and then at baseline and wheezing with low O2 saturation around 89-90% at rest at home. She reports she had mild sputum production with cough and mild chills recently. She also reported that she has history of syncopal episodes which been worked up by her neurologist. The last episode was in the morning, not witnessed and no head trauma. She is taking prednisone 40 mg daily Patient reports that she is supposed to go to [facility] this week. Vital signs in ED was initially notable for tachycardia and hypoxia which improved after getting the [facility] treatment and upon admission there was no fever, no T2 O2 saturation on 2 L, blood pressure 110/80 and heart rate were 97 Notable finding physical exam is bilateral expiratory wheezing Heart S1-S2 normal Abdomen nontender alert and oriented 3 Full details above Labs are notable for WBC 14.7,MCV 76.9, hemoglobin 12.4, HCO3 32, chloride 95 CXR Mild patchy opacity along the inferior right heart border is suspicious for developing right middle lobe pneumonia. Prominence and indistinctness of thecentral lung markings may be due to a mild degree of pulmonary vascular congestion; clinically correlate. Recommend follow-up imaging to resolution. no EKG Assessment # Shortness of breath due to COPD -Admit to general medicine floor -No abx -Consultation with Dr. Verdugo In the morning -IV Solu-Medrol 40 mg every 8 for now -TRC nebs and O2 therapy -Continue Symbicort and Spiriva -Continue Singulair, loratadine #History of TMJ pain, fibromyalgia,Insomnia -Continue oxycodone when necessary, paroxetine, trazodone, gabapentin #Full code, DVT prophylaxis is subQ Lovenox and mechanical, regular diet, oxycodone and Tylenol for pain Zak Sky 09/16/17 0438: Attending MD Review Statement Attending Statement Attending MD Statement: examined this patient, discuss w/resident/PA/BUS AND RAIL OPERATOR, agreed w/resident/PA/BUS AND RAIL OPERATOR, reviewed EMR data (avail), reviewed images, amended to note Attending Assessment/Plan: Cc: worsening of SOB PMH: Asthma, cryptogenic organizing pneumonia currently on steroid, Depression, Chronic jaw pain Patient comes to ER with 3 wk history of gradual worsening of shortness of breath, wheezing. She also endorses productive cough with yellowish sputum and chest pain with deep breathing. She denies fever or chills. Patient is chronically on steroid, currently on 40 mg PO. Her oxygen saturations dropped very low this morning so she came to ER. Otherwise ROS unremarkable. She has not followed up for bronchoscopy and biopsy yet. She fainted today when she got up from the bed all of a sudden and states that this happens to her often. Vitals: Temperature 97.8, tachycardic at 130 on arrival, pulse improved to 97, RR 20, blood pressure 144/94, saturating 84 % on arrival, improved to 94% on 2 L nasal cannula On exam: A O 3, mild respiratory distress, anxious, neck supple, no lymphadenopathy, mucosa dry, bilateral eardrum intact, no discharge or any fluid level. CVS: S1-S2, RRR. RS: Mild wheezing heard bilaterally with prolonged expiration. Abdomen soft, NT, ND, no guarding are rigidity, bowel sounds present. No focal neurological deficit. Peripheral pulses perfusion normal CXR: Mild patchy opacity along the inferior right heart border is suspicious for developing right middle lobe pneumonia. Prominence and indistinctness of the central lung markings may be due to a mild degree of pulmonary vascular congestion; clinically correlate. Recommend follow-up imaging to resolution. Assessment and plan 36-year-old female with extensive past medical history for presumed cryptogenic organizing pneumonia without any biopsy-proven diagnosis and asthma presented in ER for worsening of shortness of breath, pleuritic pain, productive cough, worsened over 3 weeks. She presented hypoxic at 84%, improved with O2 by nasal cannula and nebulization treatment. This appears in exacerbation of asthma, chest examination diffuse bilateral wheezing prolonged expiration with suspicion of cryptogenic organizing pneumonia or other interstitial lung disease. Patient is noncompliant about following up outpatient for biopsy or bronchoscopy . Leukocytosis can be secondary to steroid use. He would get pulmonology opinion for further recommendations. For now will continue IV steroids, no antibiotics, TRC nebs, oxygen support. Low probability of PE. # asthma exacerbation and presumed cryptogenic organizing pneumonia/ILD # Hx of chronic pain at left jaw, depression - Admit to GEN med - Continue methylprednisolone 40 mg every 8 hours - scheduled and when necessary albuterol nebulization, - continue oxygen by nasal cannula, weaned off gradually - No antibiotics for now - Pulmonary consult - ABG in a.m. if persistently hypoxic - continue her home doses of pain medications - DVT prophylaxis - Continue Accu-Cheks : Chronic prednisone use, significant weight gain
[2017-09-15] MEDS ORDERED: NEURONTIN300 M1 PO (21:35)
[2017-09-15] MEDS ORDERED: PREDNISONE10 M2 PO (21:35)
[2017-09-15 22:18] VITALS: BP 110/80
[2017-09-16] MEDS ORDERED: NEURONTIN100 M1 PO (04:12)
--- NOTE | 2017-09-16 04:39 | Admission Certification ---
Admission Certification Certification Statement - As attending physician, I certify that at the time of - admission, based on clinical presentation, severity of - symptoms, need for further diagnostic testing and - therapeutic interventions, and risk of adverse outcomes - without in-hospital treatment, in my clinical assessment, - this patient requires an acute hospital stay for a minimum - of two nights or longer. I have also considered psychsocial - factors such as support system, advanced age, financial - issues, cognitive issues, and failed out-patient treatments, - past re-admission history, safety of patient, and lack of - compliance as applicable. Specific rationale supporting this admission is: Asthma exacerbation
[2017-09-16 07:00] VITALS: BP 106/76
--- NOTE | 2017-09-16 08:04 | PN- Housestaff ---
See Addendum Subjective Follow-up For: Dyspnea Subjective: The patient was seen and examined. Her dyspnea is the same since presentation. Reports chronic cough w/occasional white sputum. Denies any headache, dizziness, lightheadedness, n/v/abd pain. Afebrile, VSS. Review of Systems Constitutional: Denies: chills, diaphoresis, fever, malaise, weakness, unexplained weight loss. Objective Last 24 Hrs of Vital Signs/I&O Vital Signs Date Time Temp Pulse Resp B/P B/P Pulse O2 O2 Flow FiO2 Mean Ox Delivery Rate 09/16 07 97.5 87 18 106/76 92 09/16 0000 Nasal 2.0L Cannula 09/15 2217 98.1 97 18 110/80 92 Nasal 2.0L Cannula 09/15 2217 92 Nasal 2.0L Cannula 09/15 2202 97.8 106 20 128/73 94 Nasal 2.0L Cannula 09/15 1955 97.2 100 18 120/89 96 09/15 1842 94 Nasal 3.0L Cannula 09/15 1720 Room Air 09/15 1636 97 Aerosol 6.0L Mask 09/15 1621 97.8 130 20 138/87 84 Room Air Intake & Output 09/16 1600 09/16 0800 09/16 0000 Intake Total 270 190 Output Total 0 Balance 270 190 Intake, IV 30 10 Intake, Oral 240 180 Number 0 0 Bowel Movements Output, Urine 0 Patient 180 lb Weight Weight Reported by Patient Measurement Method Physical Exam General Appearance: Alert, Oriented X3, Cooperative, No Acute Distress Skin: No Rashes HEENT: Atraumatic, PERRLA, EOMI, Mucous Membr. moist/pink Neck: Supple Cardiovascular: Regular Rate, Normal S1, Normal S2, No Murmurs, Gallops, Rubs Lungs: expiratory wheezes, no rhonchi, mildly diminished breath sounds Abdomen: Normal Bowel Sounds, Soft, No Tenderness, No Hepatospenomegaly, No Masses Neurological: Normal Speech, Strength at 5/5 X4 Ext, Normal Tone, Sensation Intact Extremities: No Clubbing, No Cyanosis, No Edema, Normal Pulses, No Tenderness/ Swelling Vascular: Normal Pulses, Pulses Symmetrical Current Medications: Current Medications Sig/Nathan Start time Last Medication Dose Route Stop Time Status Admin Albuterol Sulfate 3 ML ONCE ONE 09/15 1814 DC 09/15 INH 04/23 1816 1842 Albuterol Sulfate 3 ML ONCE ONE 09/15 1630 DC 09/15 INH 09/15 1631 1629 Budesonide/ 2 PUF BID 09/16 09 AC 09/16 Formoterol Fumarate INH 08 Enoxaparin Sodium 40 MG DAILY 09/16 0900 AC SC Gabapentin 300 MG TID 09/16 0900 AC 09/16 PO 0819 Ipratropium [place] 2.5 ML ONCE ONE 09/15 1630 DC 09/15 INH 09/15 1631 1629 Loratadine 10 MG DAILY 09/16 0900 AC 09/16 PO 0819 Methylprednisolone 40 MG Q8H 09/16 08 AC 09/16 IV 0819 Methylprednisolone 40 MG Q8 09/16 06 DC IV Methylprednisolone 40 MG .STK-MED ONE 09/15 2347 DC IM 09/15 2348 Methylprednisolone 125 MG ONCE ONE 09/15 2245 DC 09/16 IV 09/15 224 0201 Methylprednisolone 0 .STK-MED ONE 09/15 1648 DC .ROUTE Methylprednisolone 125 MG ONCE ONE 09/15 1630 DC 09/15 IV 09/15 1631 1645 Montelukast Sodium 10 MG AT BEDTIME 09/16 2100 AC PO Ondansetron HCl 0 .STK-MED ONE 09/16 2131 DC PO Ondansetron HCl 4 MG ONCE ONE 09/15 2014 DC 09/15 PO 09/15 Oxycodone HCl 30 MG Q4P PRN 09/15 224 AC 09/16 PO 0820 Paroxetine HCl 60 MG DAILY 09/16 0900 AC 09/16 PO 0819 Trazodone HCl 150 MG QPM 09/16 2100 AC PO Last 24 Hrs of Lab/Luke Results Last 24 Hrs of Labs/Mics: Laboratory Tests 09/16/17 0627: Sodium Pending, Potassium Pending, Chloride Pending, Carbon Dioxide Pending, Anion Gap Pending, BUN Pending, Creatinine Pending, BUN/Creatinine Ratio Pending , CBC w Diff Pending, WBC Pending, RBC Pending, Hgb Pending, Hct Pending, MCV Pending, MCH Pending, MCHC Pending, RDW Pending, Plt Count Pending, MPV Pending 09/15/17 1920: Lactic Acid Cancelled 09/15/17 1700: Anion Gap 11, Estimated GFR > 60, BUN/Creatinine Ratio 14.3, Glucose 89, Lactic Acid 1.2, Calcium 9.4, Total Bilirubin 0.8, AST 16, ALT 15, Alkaline Phosphatase 93, Total Protein 7.2, Albumin 4.2, Globulin 3.0, Albumin/Globulin Ratio 1.4, CBC w Diff NO MAN DIFF REQ, RBC 5.01, MCV 76.9 L, MCH 24.8 L, MCHC 32.2 L, RDW 15.4 H, MPV 8.8, Gran % 68.1, Lymphocytes % 19.8 L, Monocytes % 4.7, Eosinophils % 7.1 H, Basophils % 0.3, Absolute Granulocytes 10.1 H, Absolute Lymphocytes 2.9, Absolute Monocytes 0.7 H, Absolute Eosinophils 1.1, Absolute Basophils 0 Microbiology 09/15 1729 BLOOD: Blood Culture - RECD 09/15 1699 BLOOD: Blood Culture - RECD Assessment/Plan Assessment: This is a 36 YO lady [facility] 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 She be noted that patient was discharged about 1 months ago for the same chief complaint from the hospital. Vital signs in ED: Initially tachycardia and hypoxia which improved after getting the TRC treatment and upon admission there was no fever, no T2 O2 saturation on 2 L, blood pressure 110/80 and heart rate were 97 Labs are notable for WBC 14.7,MCV 76.9, hemoglobin 12.4, HCO3 32, chloride 95 CXR Mild patchy opacity along the inferior right heart border is suspicious for developing right middle lobe pneumonia. Prominence and indistinctness of thecentral lung markings may be due to a mild degree of pulmonary vascular congestion; clinically correlate. Recommend follow-up imaging to resolution. no EKG Assessment/Plan: # Shortness of breath due to COPD -Continue to monitor off ABs -Consultation with Dr. Verdugo -IV Solu-Medrol 40 mg every 8 -C nebs and O2 therapy -Continue Symbicort and Spiriva -Continue Singulair, loratadine #History of TMJ pain, fibromyalgia,Insomnia -Continue oxycodone when necessary, paroxetine, trazodone, gabapentin #Full code, DVT prophylaxis is subQ Lovenox and mechanical, regular diet, oxycodone and Tylenol for pain Problem List: 1. Dyspnea Pain Ratin Pain Location: NA Pain Goal: Remain pain free Pain Plan: Home pain regimen;see assessment plan Tomorrow's Labs & Rationales: CBC to monitor leukocytosis
[2017-09-16 08:43] LABS: ABSOLUTE BASOPHIL COUNT 0 /CUMM (0.0-0.2); ABSOLUTE EOSINOPHIL COUNT 0 /CUMM (0.0-0.7); ABSOLUTE GRANULOCYTE CT 10.9 /CUMM (1.4-6.5); ABSOLUTE LYMPH COUNT 1.1 /CUMM (1.2-3.4); ABSOLUTE MONOCYTE COUNT 0 /CUMM (0.10-0.60); BASOPHIL % 0 % (0.0-2.0); EOSINOPHIL % 0.1 % (0-5); HEMATOCRIT 36.8 % (37-47); MEAN CORPUSCULAR HGB 25.2 PG (27.0-31.0); MEAN CORPUSCULAR HGB CONC 32.7 G/DL (33.0-37.0); MEAN CORPUSCULAR VOLUME 77.1 FL (81.0-99.0); MEAN PLATELET VOLUME 9.3 FL (7.4-10.4); PLATELET COUNT 357 /CUMM (130-400); RBC DISTRIBUTION WIDTH 15.1 % (11.5-14.5); RED BLOOD CELL CT 4.78 /CUMM (4.20-5.40)
[2017-09-16 10:05] LABS: GRANULOCYTE % 90.6 % (42.2-75.2)
--- NOTE | 2017-09-16 13:49 | Cons- Pulmonary ---
General Information and HPI Consulting Request Date of Consult: 09/16/17 Requested By: Dr. Sky Reason for Consult: Asthma exacerbation MILLER FIRST Source of Information: patient Exam Limitations: no limitations History of Present Illness: 36 year old woman. History of asthma, peripheral eosinophilia. Presumed dx of MILLER FIRST without a definitive dx per pt choice. She has been on chronic prednisone. Recently paused Bactrim. Awaiting second opinion at the [facility]. She remains hypoxemic on oxygen at home. CXR Mild patchy opacity along the inferior right heart border is suspicious for developing right middle lobe pneumonia. Prominence and indistinctness of the central lung markings may be due to a mild degree of pulmonary vascular congestion. eosinophilia Her IgE was elevated as high as 452 (last 120). She may qualify for Xolair therapy. She is currently on spiriva, paxil, claritin, proventil, trazadone, singulair, symbicort, bactrim DS, roxicodone Lovenox for DVT prophylaxis. No n/v/d/c. No cp. Dyspnea primarily on exertion, wheezing, coughing (dry). Occasional ONEILL, no joint pains or rashes. Patient has been to [facility] for a second opinion she is awaiting to complete their requested workup including bronchoscopy and sleep study which is pending. Allergies/Medications Allergies: Coded Allergies: No Known Allergies (06/19/17) Home Med List: Albuterol Sulfate (Proair Hfa) 90 MCG HFA.AER.AD 2 PUF INH Q4-6 PRN PRN RESPIRATORY . Budesonide/Formoterol Fumarate (Symbicort 160-4.5 Mcg Inhaler) 160 MCG-4.5 MCG/ ACTUATION HFA.AER.AD 2 PUF INH BID SOB . Gabapentin (Neurontin) 100 MG CAPSULE 1 CAP PO TID pain (Reported) Hydroxyzine HCl (hydrOXYzine HCl) 10 MG TABLET 10 MG PO DAILY PRN FOR ALLERGY (Reported) Loratadine 10 MG TABLET 10 MG PO DAILY ASTHMA . Montelukast Sodium 10 MG TABLET 10 MG PO AT BEDTIME asthma . Oxycodone HCl 30 MG TABLET 1 TAB PO Q4H PRN PAIN (Reported) Paroxetine HCl 30 MG TABLET 2 TAB PO DAILY MENTAL HEALTH (Reported) Prednisone 10 MG TABLET 40 MG PO DAILY MILLER FIRST (Reported) Tiotropium [place] (Spiriva) 18 MCG CAP.W.DEV 1 CAP INH DAILY ASTHMA . Trazodone HCl 50 MG TABLET 3 TAB PO QPM SLEEP (Reported) Current Medications: Current Medications Sig/Nathan Start time Last Medication Dose Route Stop Time Status Admin Albuterol Sulfate 3 ML EVERY 4 HRS/AWAKE 09/16 0900 AC 09/16 INH 1313 Albuterol Sulfate 3 ML ONCE ONE 09/15 1815 DC 09/15 INH 09/15 1816 1842 Albuterol Sulfate 3 ML ONCE ONE 09/15 1630 DC 09/15 INH 09/15 1631 1629 Budesonide/ 2 PUF BID 09/16 09 AC 09/16 Formoterol Fumarate INH 0819 Enoxaparin Sodium 40 MG DAILY 09/16 09 AC SC Gabapentin 300 MG TID 09/16 09 AC 09/16 PO 1334 Ipratropium [place] 2.5 ML ONCE ONE 09/15 1630 DC 09/15 INH 09/15 1631 1629 Loratadine 10 MG DAILY 09/16 09 AC 09/16 PO 0819 Methylprednisolone 40 MG Q8H 09/16 0800 AC 09/16 IV 0819 Methylprednisolone 40 MG Q8 09/16 06 DC IV Methylprednisolone 40 MG .STK-MED ONE 09/15 2347 DC IM 09/15 2348 Methylprednisolone 125 MG ONCE ONE 09/15 2245 DC 09/16 IV 09/15 224 0201 Methylprednisolone 0 .STK-MED ONE 09/15 1648 DC .ROUTE Methylprednisolone 125 MG ONCE ONE 09/15 1630 DC 09/15 IV 09/15 1631 1645 Montelukast Sodium 10 MG AT BEDTIME 09/16 2100 AC PO Ondansetron HCl 0 .STK-MED ONE 09/16 2131 DC PO Ondansetron HCl 4 MG ONCE ONE 09/15 2014 DC 09/15 PO 09/15 Oxycodone HCl 30 MG Q4P PRN 09/15 224 AC 09/16 PO 1231 Paroxetine HCl 60 MG DAILY 09/16 0900 AC 09/16 PO 0819 Trazodone HCl 150 MG QPM 09/16 2100 AC PO Review of Systems Comments 18 point review of systems was performed and reviewed. Please see pertinent positives and pertinent negatives in the HPI. Otherwise ROS is negative. 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 FH: diabetes mellitus UNCLE-MATERNAL (BOOP). GRANDMOTHER-MATERNAL (CHF). Relation not specified for: FH: CAD (coronary artery disease) FH: HTN (hypertension) FH: ovarian cancer FH: uterine cancer Psychosocial History Where Do You Live? Home Who Do You Live With? parent Services at Home: None Primary Language: Maltese Smoking Status: Never Smoked ETOH Use: occasional use Illicit Drug Use: denies illicit drug use Functional Ability ADLs Independent: dressing, eating, toileting, bathing. Ambulation: independent IADLs Independent: shopping, housework, finances, food prep, telephone, transportation , medication admin. Exam & Diagnostic Data Last 24 Hrs of Vital Signs/I&O Vital Signs Date Time Temp Pulse Resp B/P B/P Pulse O2 O2 Flow FiO2 Mean Ox Delivery Rate 09/16 0850 Nasal 2.0L Cannula 09/16 0800 94 Nasal 2.0L Cannula 09/16 0700 97.5 87 18 106/76 92 09/16 0000 Nasal 2.0L Cannula 09/15 2217 98.1 97 18 110/80 92 Nasal 2.0L Cannula 09/15 2217 92 Nasal 2.0L Cannula 09/15 2202 97.8 106 20 128/73 94 Nasal 2.0L Cannula 09/15 1954 97.2 100 18 120/89 96 09/15 1842 94 Nasal 3.0L Cannula 09/15 1720 Room Air 09/15 1636 97 Aerosol 6.0L Mask 09/15 1621 97.8 130 20 138/87 84 Room Air Intake & Output 09/16 1600 09/16 0800 09/16 0000 Intake Total 270 190 Output Total 0 Balance 270 190 Intake, IV 30 10 Intake, Oral 240 180 Number 0 0 Bowel Movements Output, Urine 0 Patient 180 lb Weight Weight Reported by Patient Measurement Method Physical Exam Other Physical Findings: gen awake and alert heent ncat cvs s1, s2 lungs bilateral rhonchi abd soft, elevated bmi ext without edema Last 48 Hrs of Labs/Luke: Laboratory Tests 09/16/17 0627: Anion Gap 13, Estimated GFR > 60, BUN/Creatinine Ratio 18.3, CBC w Diff NO MAN DIFF REQ, RBC 4.78, MCV 77.1 L, MCH 25.2 L, MCHC 32.7 L, RDW 15.1 H, MPV 9.3 , Gran % 90.6 H, Lymphocytes % 9.0 L, Monocytes % 0.3 L, Eosinophils % 0.1, Basophils % 0, Absolute Granulocytes 10.9 H, Absolute Lymphocytes 1.1 L, Absolute Monocytes 0 L, Absolute Eosinophils 0, Absolute Basophils 0 09/15/17 1920: Lactic Acid Cancelled 09/15/17 1700: Anion Gap 11, Estimated GFR > 60, BUN/Creatinine Ratio 14.3, Glucose 89, Lactic Acid 1.2, Calcium 9.4, Total Bilirubin 0.8, AST 16, ALT 15, Alkaline Phosphatase 93, Total Protein 7.2, Albumin 4.2, Globulin 3.0, Albumin/Globulin Ratio 1.4, CBC w Diff NO MAN DIFF REQ, RBC 5.01, MCV 76.9 L, MCH 24.8 L, MCHC 32.2 L, RDW 15.4 H, MPV 8.8, Gran % 68.1, Lymphocytes % 19.8 L, Monocytes % 4.7, Eosinophils % 7.1 H, Basophils % 0.3, Absolute Granulocytes 10.1 H, Absolute Lymphocytes 2.9, Absolute Monocytes 0.7 H, Absolute Eosinophils 1.1, Absolute Basophils 0 Assessment/Plan Impression/Plan: Impression 36-year-old woman * Exacerbation of asthma * History of cryptogenic pneumonia Plan -continue iv solumedrol -will taper with you -needs to f/u next week at [facility] for a second opinion she is awaiting to complete their requested workup including bronchoscopy and sleep study which is pending. -TRC/Nebs DVT prophylaxis at all times Consult Acknowledgment - Thank you for your consult request.
[2017-09-16 13:55] VITALS: BP 106/68
[2017-09-16 21:22] VITALS: BP 112/78
[2017-09-17 06:14] VITALS: BP 110/62
--- NOTE | 2017-09-17 08:42 | PN- Housestaff ---
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 She is resting comfortably in bed , still on oxygen via nasal cannula, but not in distress, and does not have any complaints currently. However, she mentioned that she had an exacerbation/ difficulty breathing last night and required her rescue inhaler. VSS otherwise and no nursing issues reported. Review of Systems Constitutional: Reports: see HPI. Objective Last 24 Hrs of Vital Signs/I&O Vital Signs Date Time Temp Pulse Resp B/P B/P Pulse O2 O2 Flow FiO2 Mean Ox Delivery Rate 09/17 0850 91 Nasal 2.0L Cannula 09/17 0800 94 Nasal 2.0L Cannula 09/17 0614 97.5 67 22 110/62 94 Nasal 2.0L Cannula 09/17 0000 92 Nasal 2.0L Cannula 09/16 2122 98.3 99 19 112/78 90 Nasal 2.0L Cannula 09/16 1616 96 Nasal 2.0L Cannula 09/16 1610 Nasal 2.0L Cannula Intake & Output 09/17 1600 09/17 0800 09/17 0000 Intake Total 920 120 760 Output Total Balance 920 120 760 Intake, IV 20 10 Intake, Oral 900 120 750 Physical Exam General Appearance: Alert, Oriented X3, Cooperative, No Acute Distress, on nasal canula, obese Other Physical Findings: Skin: No Rashes HEENT: Atraumatic, PERRLA, EOMI, Mucous Membr. moist/pink Neck: Supple Cardiovascular: Regular Rate, Normal S1, Normal S2, No Murmurs, Gallops, Rubs Lungs: b/l expiratory wheezes, no rhonchi, breath sounds MORE PROMINENT TODAY ( better) Abdomen: Normal Bowel Sounds, Soft, No Tenderness Neurological: grossly intact Extremities: No Clubbing, No Cyanosis, No Edema, Normal Pulses, No Tenderness/ Swelling Vascular: Normal Pulses, Pulses Symmetrical Current Medications: Current Medications Sig/Nathan Start time Last Medication Dose Route Stop Time Status Admin Albuterol Sulfate 3 ML EVERY 4 HRS/AWAKE 09/16 899 AC 09/17 INH 0855 Budesonide/ 2 PUF BID 09/16 899 AC 09/17 Formoterol Fumarate INH 08 Enoxaparin Sodium 40 MG DAILY 09/16 899 AC SC Gabapentin 300 MG TID 09/16 899 AC 09/17 PO 1350 Loratadine 10 MG DAILY 09/16 09 09/17 PO 0813 Methylprednisolone 40 MG Q8H 09/17 799 09/17 IV 0813 Montelukast Sodium 10 MG AT BEDTIME 09/16 2099 09/16 PO 2012 Oxycodone HCl 30 MG .STK-MED ONE 09/17 0327 DC PO 09/17 0328 Oxycodone HCl 30 MG Q4P PRN 09/15 2245 09/17 PO 1203 Paroxetine HCl 60 MG DAILY 09/16 899 09/17 PO 0812 Patient Medication 1 ED ONE ONE 09/17 1100 DC 09/17 Teaching ED 09/17 1101 1056 Patient Medication 1 ED ONE ONE 09/16 1700 GA 09/16 Teaching ED 09/16 Trazodone HCl 150 MG QPM 09/16 2099 09/16 PO 2012 Last 24 Hrs of Lab/Luke Results Last 24 Hrs of Labs/Mics: Laboratory Tests 09/17/1718: Anion Gap 14, Estimated GFR > 60, BUN/Creatinine Ratio 18.3, CBC w Diff NO MAN DIFF REQ, RBC 4.63, MCV 77.3 L, MCH 25.3 L, MCHC 32.7 L, RDW 15.7 H, MPV 9.7 , Gran % 88.5 H, Lymphocytes % 7.9 L, Monocytes % 3.6, Eosinophils % 0, Basophils % 0, Absolute Granulocytes 14.4 H, Absolute Lymphocytes 1.3, Absolute Monocytes 0.6, Absolute Eosinophils 0, Absolute Basophils 0 Assessment/Plan Assessment: 36 yo F with 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 She was discharged about 1 month ago for the same chief complaint from the hospital. She is currently admitted in the general medical floor for the management of following issues: Assessment/Plan: # Shortness of breath due to COPD Patient tolerated nasal cannula, seems to be better than yesterday. Her bilateral air entry is much better although she is wheezing, and also had to use her rescue inhaler last night, she seems to be improving, but still needs IV steroids and close monitoring for now. -Continue to monitor off ABs -Appreciate consultation with Dr. Verdugo -IV Solu-Medrol 40 mg every 8 hr given her persistent wheezing -TRC nebs and O2 therapy -Continue Symbicort and Spiriva -Continue Singulair, loratadine #History of TMJ pain, fibromyalgia,Insomnia -Continue oxycodone when necessary, paroxetine, trazodone, gabapentin #Full code, DVT prophylaxis is subQ Lovenox and mechanical, regular diet, oxycodone and Tylenol for pain Problem List: 1. Asthma exacerbation 2. Cryptogenic organizing pneumonia 3. Fibromyalgia Pain Ratin Pain Location: jaw, back Pain Goal: Pain 4 or less Pain Plan: prn as ordered, oxycodone Tomorrow's Labs & Rationales: Uriel Gupta MD 09/17/171923: Attending MD Review Statement Attending Statement Attending MD Statement: examined this patient, discuss w/resident/PA/VOCATIONAL REHABILITATION CONSULTANT, agreed w/resident/PA/VOCATIONAL REHABILITATION CONSULTANT, discussed with family, reviewed EMR data (avail), discussed with nursing, discussed with case mgmt, amended to note Attending Assessment/Plan: The patient was seen with house staff and discussed with nursing and case management. She did require rescue inhaler x 2 last pm, however improved today. Appreciate Pulmonary input. Lung exam shows increased air movement, however still with significant wheeze. Continue steroids as per pulmonary.
[2017-09-17 08:43] LABS: ABSOLUTE BASOPHIL COUNT 0 /CUMM (0.0-0.2); ABSOLUTE EOSINOPHIL COUNT 0 /CUMM (0.0-0.7); ABSOLUTE GRANULOCYTE CT 14.4 /CUMM (1.4-6.5); ABSOLUTE LYMPH COUNT 1.3 /CUMM (1.2-3.4); ABSOLUTE MONOCYTE COUNT 0.6 /CUMM (0.10-0.60); BASOPHIL % 0 % (0.0-2.0); EOSINOPHIL % 0 % (0-5); HEMATOCRIT 35.8 % (37-47); MEAN CORPUSCULAR HGB 25.3 PG (27.0-31.0); MEAN CORPUSCULAR HGB CONC 32.7 G/DL (33.0-37.0); MEAN CORPUSCULAR VOLUME 77.3 FL (81.0-99.0); MEAN PLATELET VOLUME 9.7 FL (7.4-10.4); PLATELET COUNT 379 /CUMM (130-400); RBC DISTRIBUTION WIDTH 15.7 % (11.5-14.5); RED BLOOD CELL CT 4.63 /CUMM (4.20-5.40); WHITE BLOOD CELL COUNT 16.2 /CUMM (4.8-10.8)
[2017-09-17 10:16] LABS: GRANULOCYTE % 88.5 % (42.2-75.2)
[2017-09-17 14:47] VITALS: BP 118/64
--- NOTE | 2017-09-17 14:49 | PN- Pulmonary ---
Subjective HPI/Critical Care Issues: Patient seen and examined this morning. She had an episode of an exacerbation worsening overnight however continues to improve today. Objective Current Medications: Current Medications Sig/Nathan Start time Last Medication Dose Route Stop Time Status Admin Albuterol Sulfate 3 ML EVERY 4 HRS/AWAKE 09/16 0900 AC 09/17 INH 0855 Budesonide/ 2 PUF BID 09/16 09 AC 09/17 Formoterol Fumarate INH 0812 Enoxaparin Sodium 40 MG DAILY 09/16 09 AC SC Gabapentin 300 MG TID 09/16 09 AC 09/17 PO 1350 Loratadine 10 MG DAILY 09/16 09 AC 09/17 PO 0813 Methylprednisolone 40 MG Q8H 09/16 08 AC 09/17 IV 0813 Montelukast Sodium 10 MG AT BEDTIME 09/16 2099 AC 09/16 PO 2013 Oxycodone HCl 30 MG .STK-MED ONE 09/17 0327 DC PO 09/17 0328 Oxycodone HCl 30 MG Q4P PRN 09/15 2245 AC 09/17 PO 1203 Paroxetine HCl 60 MG DAILY 09/16 09 09/17 PO 0812 Patient Medication 1 ED ONE ONE 09/17 1100 DC 09/17 Teaching ED 09/17 1101 1056 Patient Medication 1 ED ONE ONE 09/16 1700 DC 09/16 Teaching ED 09/16 1701 2013 Trazodone HCl 150 MG QPM 09/16 2100 AC 09/16 PO 2013 Vital Signs & I&O Last 24 Hrs of Vitals and I&O: Vital Signs Date Time Temp Pulse Resp B/P B/P Pulse O2 O2 Flow FiO2 Mean Ox Delivery Rate 09/17 0850 91 Nasal 2.0L Cannula 09/17 0800 94 Nasal 2.0L Cannula 09/17 0614 97.5 67 22 110/62 94 Nasal 2.0L Cannula 09/17 0000 92 Nasal 2.0L Cannula 09/162 98.3 99 19 112/78 90 Nasal 2.0L Cannula 09/16 1616 96 Nasal 2.0L Cannula 09/16 1610 Nasal 2.0L Cannula Intake & Output 09/17 1600 09/17 0800 09/17 0000 Intake Total 920 120 760 Output Total Balance 920 120 760 Intake, IV 20 10 Intake, Oral 900 120 750 Exam Other Physical Findings: awake alert wheezing improved no leg edema cardiac exam normal Results Last 24 Hrs of Lab Results: Laboratory Tests 09/17/17 0618: Anion Gap 14, Estimated GFR > 60, BUN/Creatinine Ratio 18.3, CBC w Diff NO MAN DIFF REQ, RBC 4.63, MCV 77.3 L, MCH 25.3 L, MCHC 32.7 L, RDW 15.7 H, MPV 9.7 , Gran % 88.5 H, Lymphocytes % 7.9 L, Monocytes % 3.6, Eosinophils % 0, Basophils % 0, Absolute Granulocytes 14.4 H, Absolute Lymphocytes 1.3, Absolute Monocytes 0.6, Absolute Eosinophils 0, Absolute Basophils 0 Impression/Plan Impression/Plan Impression/Plan: Impression 36-year-old woman * Exacerbation of asthma * History of cryptogenic pneumonia Plan -continue iv solumedrol today, dc planning 24-48 hrs -will taper with you -needs to f/u next week at [facility] for a second opinion she is awaiting to complete their requested workup including bronchoscopy and sleep study which is pending. -TRC/Nebs DVT prophylaxis at all times
[2017-09-17 21:28] VITALS: BP 118/74
[2017-09-18 06:50] VITALS: BP 105/71
--- NOTE | 2017-09-18 07:42 | PN- Housestaff ---
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 She is resting comfortably in bed , still on oxygen via nasal cannula, but not in distress, and does not have any complaints currently. She still had to use her rescue inhaler last night, but seems much better than yesterday. VSS otherwise and no nursing issues reported. Review of Systems Constitutional: Reports: see HPI. Objective Last 24 Hrs of Vital Signs/I&O Vital Signs Date Time Temp Pulse Resp B/P B/P Pulse O2 O2 Flow FiO2 Mean Ox Delivery Rate 09/18 0650 97.6 72 20 105/71 94 Room Air 09/18 0000 Nasal 2.0L Cannula 09/17 2128 98.0 86 20 118/74 97 09/17 1613 92 Nasal 2.0L Cannula 09/17 1600 Nasal 2.0L Cannula 09/17 1447 98.2 78 20 118/64 93 Nasal 2.0L Cannula 09/17 0850 91 Nasal 2.0L Cannula 09/17 0800 94 Nasal 2.0L Cannula Intake & Output 09/18 0800 09/18 0000 09/17 1600 Intake Total 900 920 Output Total Balance 900 920 Intake, IV 20 Intake, Oral 900 900 Number 0 Bowel Movements Physical Exam General Appearance: Alert, Oriented X3, Cooperative, No Acute Distress, on nasal canula, obese Other Physical Findings: Skin: No Rashes HEENT: Atraumatic, PERRLA, EOMI, Mucous Membr. moist/pink Neck: Supple Cardiovascular: Regular Rate, Normal S1, Normal S2, No Murmurs, Gallops, Rubs Lungs: b/l expiratory wheezes, no rhonchi Abdomen: Normal Bowel Sounds, Soft, No Tenderness Neurological: grossly intact Extremities: No Clubbing, No Cyanosis, No Edema, Normal Pulses, No Tenderness/ Swelling Vascular: Normal Pulses, Pulses Symmetrical Current Medications: Current Medications Sig/Nathan Start time Last Medication Dose Route Stop Time Status Admin Albuterol Sulfate 3 ML EVERY 4 HRS/AWAKE 09/16 899 AC 09/17 INH 1608 Budesonide/ 2 PUF BID 09/16 899 AC 09/17 Formoterol Fumarate INH 2020 Enoxaparin Sodium 40 MG DAILY 09/16 899 AC 09/17 SC 1529 Gabapentin 300 MG TID 09/16 899 AC 09/17 PO 2020 Loratadine 10 MG DAILY 09/16 899 AC 09/17 PO 08 Methylprednisolone 40 MG Q8H 09/17 799 AC 09/18 IV 0009 Montelukast Sodium 10 MG AT BEDTIME 09/16 2099 AC 09/17 PO 2020 Oxycodone HCl 30 MG Q4P PRN 09/15 2245 AC 09/18 PO 040 Paroxetine HCl 60 MG DAILY 09/16 899 AC 09/17 PO 08 Patient Medication 1 ED ONE ONE 09/17 1100 DC 09/17 Teaching ED 09/17 1101 1056 Trazodone HCl 150 MG QPM 09/16 2099 AC 09/17 PO 2020 Last 24 Hrs of Lab/Luke Results Last 24 Hrs of Labs/Mics: Laboratory Tests 09/18/17 0608: CBC w Diff Pending, WBC Pending, RBC Pending, Hgb Pending, Hct Pending, MCV Pending, MCH Pending, MCHC Pending, RDW Pending, Plt Count Pending, MPV Pending Assessment/Plan Assessment: 36 yo F with 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 She was discharged about 1 month ago for the same chief complaint from the hospital. She is currently admitted in the general medical floor for the management of following issues: Assessment/Plan: # Shortness of breath due to COPD Patient tolerated nasal cannula, seems to be better than yesterday. Her bilateral air entry is much better although she is wheezing, and also had to use her rescue inhaler last night once only, she seems to be improving, but still needs IV steroids and close monitoring for now. -Continue to monitor off ABs -Appreciate consultation with Dr. Verdugo -IV Solu-Medrol 40 mg changed from every 8 hr to every 12 hr today -Plan to switch to poral steroid (prednisone) tomorrow per Pulm recs -Continue TRC nebs and O2 therapy -Continue Symbicort and Spiriva -Continue Singulair, loratadine #History of TMJ pain, fibromyalgia,Insomnia -Continue oxycodone when necessary, paroxetine, trazodone, gabapentin #Full code, DVT prophylaxis is subQ Lovenox and mechanical, regular diet, oxycodone and Tylenol for pain Problem List: 1. Asthma exacerbation 2. Cryptogenic organizing pneumonia Pain Ratin Pain Location: jaw Pain Goal: Pain 4 or less Pain Plan: prn, oxycodone Tomorrow's Labs & Rationales: JOSE LUIS Nascimento MD,Uriel 09/18/172: Attending MD Review Statement Attending Statement Attending MD Statement: examined this patient, discuss w/resident/PA/FILTRATION SUPERVISOR, agreed w/resident/PA/FILTRATION SUPERVISOR, reviewed EMR data (avail), discussed with nursing, discussed with case mgmt, amended to note Attending Assessment/Plan: The patient was seen and discussed with house staff. Appreciate pulmonary input. Improved today with increased air movement and less wheezing, however still not at baseline. Had to use rescue inhaler x 1 last pm. Will decrease Solumedrol as per pulmonary and possibly change to po Prednisone tomorrow.
[2017-09-18 08:14] LABS: ABSOLUTE BASOPHIL COUNT 0 /CUMM (0.0-0.2); ABSOLUTE EOSINOPHIL COUNT 0 /CUMM (0.0-0.7); ABSOLUTE GRANULOCYTE CT 13.7 /CUMM (1.4-6.5); ABSOLUTE LYMPH COUNT 1.1 /CUMM (1.2-3.4); ABSOLUTE MONOCYTE COUNT 0.2 /CUMM (0.10-0.60); BASOPHIL % 0 % (0.0-2.0); EOSINOPHIL % 0.1 % (0-5); HEMATOCRIT 37.8 % (37-47); MEAN CORPUSCULAR HGB 24.9 PG (27.0-31.0); MEAN CORPUSCULAR HGB CONC 31.6 G/DL (33.0-37.0); MEAN CORPUSCULAR VOLUME 78.7 FL (81.0-99.0); MEAN PLATELET VOLUME 9.9 FL (7.4-10.4); PLATELET COUNT 361 /CUMM (130-400); RBC DISTRIBUTION WIDTH 15.3 % (11.5-14.5); RED BLOOD CELL CT 4.81 /CUMM (4.20-5.40); WHITE BLOOD CELL COUNT 15.1 /CUMM (4.8-10.8)
--- NOTE | 2017-09-18 11:04 | PN- Pulmonary ---
Subjective HPI/Critical Care Issues: pt seen and examined she has a visitor this am she is feeling better today with reduction in wheezing Objective Current Medications: Current Medications Sig/Nathan Start time Last Medication Dose Route Stop Time Status Admin Albuterol Sulfate 3 ML EVERY 4 HRS/AWAKE 09/16 09 AC 09/17 INH 1608 Budesonide/ 2 PUF BID 09/16 09 AC 09/18 Formoterol Fumarate INH 0824 Enoxaparin Sodium 40 MG DAILY 09/16 09 AC 09/17 SC 1529 Gabapentin 300 MG TID 09/16 09 AC 09/18 PO 0823 Loratadine 10 MG DAILY 09/16 09 AC 09/18 PO 0823 Methylprednisolone 40 MG Q8H 09/17 799 AC 09/18 IV 0823 Montelukast Sodium 10 MG AT BEDTIME 09/16 2100 AC 09/17 PO 202 Oxycodone HCl 30 MG Q4P PRN 09/15 2245 AC 09/18 PO 0823 Paroxetine HCl 60 MG DAILY 09/16 899 AC 09/18 PO 0824 Trazodone HCl 150 MG QPM 09/16 2100 AC 09/17 PO 2020 Vital Signs & I&O Last 24 Hrs of Vitals and I&O: Vital Signs Date Time Temp Pulse Resp B/P B/P Pulse O2 O2 Flow FiO2 Mean Ox Delivery Rate 09/18 0800 95 Nasal 2.0L Cannula 09/18 0650 97.6 72 20 105/71 94 Room Air 09/18 0000 Nasal 2.0L Cannula 09/17 2128 98.0 86 20 118/74 97 09/17 1613 92 Nasal 2.0L Cannula 09/17 1600 Nasal 2.0L Cannula 09/17 1447 98.2 78 20 118/64 93 Nasal 2.0L Cannula Intake & Output 09/18 1600 09/18 0800 09/18 0000 Intake Total 900 Output Total Balance 900 Intake, Oral 900 Number 0 Bowel Movements Exam Other Physical Findings: gen awake and alert heent nasal cannula cvs s1, s2 lungs reduced wheezing no edema Results Last 24 Hrs of Lab Results: Laboratory Tests 09/18/17 06: CBC w Diff NO MAN DIFF REQ, RBC 4.81, MCV 78.7 L, MCH 24.9 L, MCHC 31.6 L, RDW 15.3 H, MPV 9.9, Gran % 91.0 H, Lymphocytes % 7.4 L, Monocytes % 1.5 L, Eosinophils % 0.1, Basophils % 0, Absolute Granulocytes 13.7 H, Absolute Lymphocytes 1.1 L, Absolute Monocytes 0.2, Absolute Eosinophils 0, Absolute Basophils 0 Impression/Plan Impression/Plan Impression/Plan: Impression 36-year-old woman * Exacerbation of asthma * History of cryptogenic pneumonia Plan -reduce solumedrol to 40mg iv q12 -plan to reduce to prednisone tomorrow -f/u at [facility] upon dc -TRC/Nebs DVT prophylaxis at all times
[2017-09-18 14:06] VITALS: BP 110/65
--- NOTE | 2017-09-18 16:04 | Discharge Summary ---
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 Her exacerbations seem rather frequent which reportedly (by patient) has made it difficult to get the lung biopsy required for further management. She required a long course of IV steroid and seems to respond to slow taper. Mill Crane Operator Dr Quang Verdugo was on board to guide the management. She is supposed to follow up at [facility] upon discharge. Allergies: Coded Allergies: No Known Allergies (06/19/17) Pertinent Lab Results: CXR on presentation (please note, she had a recent respiratory infection and exacerbation): IMPRESSION: Mild patchy opacity along the inferior right heart border is suspicious for developing right middle lobe pneumonia. Prominence and indistinctness of the central lung markings may be due to a mild degree of pulmonary vascular congestion; clinically correlate. Recommend follow-up imaging to resolution. 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 Discharge Disposition: home or self care Discharge Instructions General Discharge Information Code Status: Full Code Patient's Diet: Regular diet Patient's Activity: As tolerated Follow-Up Instructions/Appts: Please follow up with Dr Verdugo (Mill Crane Operator) after your discharge. Please follow up with [facility] after your discharge. Medications at Discharge Discharge Medications: Stop taking the following medications: Prednisone (Prednisone) 10 MG TABLET ORAL DAILY Continue taking these medications: Trazodone HCl (Trazodone HCl) 50 MG TABLET 3 Tablet ORAL Every night Qty = 30 Comments: Last Taken:09/20/17 Time:945 PM Paroxetine HCl (Paroxetine HCl) 30 MG TABLET 2 Tablet ORAL DAILY Comments: Last Taken:09/21/17 Time:0745 AM Oxycodone HCl (Oxycodone HCl) 30 MG TABLET 1 Tablet ORAL Q4H as needed for PAIN Comments: Last Taken:09/21/17 Time:1000 AM Loratadine (Loratadine) 10 MG TABLET 10 Milligram ORAL DAILY Qty = 30 Instructions: . Comments: Last Taken:09/21/17 Time:0745 AM Montelukast Sodium (Montelukast Sodium) 10 MG TABLET 10 Milligram ORAL AT BEDTIME Qty = 30 Instructions: . Comments: Last Taken:09/21/17 Time:0745 AM Hydroxyzine HCl (hydrOXYzine HCl) 10 MG TABLET 10 Milligram ORAL DAILY as needed for FOR ALLERGY Qty = 30 Comments: NOT GIVEN IN HOSPITAL Budesonide/Formoterol Fumarate (Symbicort 160-4.5 Mcg Inhaler) 160 MCG-4.5 MCG/ ACTUATION HFA.AER.AD 2 Puff Inhale through mouth TWICE DAILY Qty = 3 Instructions: . Comments: Last Taken:09/21/17 Time:0745 AM Albuterol Sulfate (Proair Hfa) 90 MCG HFA.AER.AD 2 Puff Inhale through mouth EVERY 4-6 HOURS NEEDED as needed for RESPIRATORY Qty = 3 Instructions: . Comments: NOT GIVEN IN HOSPITAL Tiotropium [place] (Spiriva) 18 MCG CAP.W.DEV 1 Capsule Inhale through mouth DAILY Qty = 3 Instructions: . Comments: NOT GIVEN IN HOSPITAL Gabapentin (Neurontin) 100 MG CAPSULE 1 Capsule ORAL THREE TIMES DAILY Comments: Last Taken:09/21/17 Time:0745 AM Start taking the following new medications: Prednisone (Prednisone) 10 MG TABLET 0 ORAL See Instructions Qty = 101 No Refills Instructions: TAKE 60 MG ON 09/22 #6 TAKE 50 MG FROM 09/23- 09/25 #15 TAKE 40 MG FROM 09/26 ONWARDS #80 SEE LUNG DOCTOR Comments: Last Taken:09/21/17 Time:0745 AM 60 MG Copies To: James CHAPARRO,Socrates Mehta; Lucina CHAPARRO,Quang Attending MD Review Statement Documenting Attending: Uriel Nascimenot MD Other Findings: The patient was seen and agree with the plano f care assigned.
[2017-09-18 21:18] VITALS: BP 110/62
[2017-09-19 06:05] VITALS: BP 118/86
--- NOTE | 2017-09-19 07:37 | PN- Housestaff ---
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 She is resting comfortably in bed , still on oxygen via nasal cannula, but not in distress, and does not have any complaints currently. She still had to use her rescue inhaler last night once and appears like yesterday. VSS otherwise and no nursing issues reported. She is still on IV Steroids. Review of Systems Constitutional: Reports: see HPI. Objective Last 24 Hrs of Vital Signs/I&O Vital Signs Date Time Temp Pulse Resp B/P B/P Pulse O2 O2 Flow FiO2 Mean Ox Delivery Rate 09/19 0605 97.9 75 20 118/86 95 Nasal 2.0L Cannula 09/19 0000 Nasal 2.0L Cannula 09/18 2118 97.8 75 18 110/62 94 Nasal 2.0L Cannula 09/18 1848 95 Nasal 2.0L Cannula 09/18 1600 97 Nasal 2.0L Cannula 09/18 1406 98.0 99 17 110/65 93 Nasal 2.0L Cannula 09/18 1252 96 Nasal 2.0L Cannula 09/18 0800 95 Nasal 2.0L Cannula Intake & Output 09/19 0800 09/19 0000 09/18 1600 Intake Total 600 480 940 Output Total Balance 600 480 940 Intake, IV 40 Intake, Oral 600 480 900 Number 0 Bowel Movements Physical Exam General Appearance: Alert, Oriented X3, Cooperative, No Acute Distress, on nasal canula, obese Other Physical Findings: Skin: No Rashes HEENT: Atraumatic, PERRLA, EOMI, Mucous Membr. moist/pink Neck: Supple Cardiovascular: Regular Rate, Normal S1, Normal S2, No Murmurs, Gallops, Rubs Lungs: b/l expiratory wheezes, no rhonchi (PT HAS NOT RECEIVED STEROID TODAY YET - AM) Abdomen: Normal Bowel Sounds, Soft, No Tenderness Neurological: grossly intact Extremities: No Clubbing, No Cyanosis, No Edema, Normal Pulses, No Tenderness/ Swelling Vascular: Normal Pulses, Pulses Symmetrical Current Medications: Current Medications Sig/Nathan Start time Last Medication Dose Route Stop Time Status Admin Albuterol Sulfate 3 ML BID 09/18 2100 AC 09/18 INH 1848 Albuterol Sulfate 3 ML EVERY 4 HRS/AWAKE 09/16 0900 DC 09/18 INH 1248 Budesonide/ 2 PUF BID 09/16 899 AC 09/18 Formoterol Fumarate INH 2100 Enoxaparin Sodium 40 MG DAILY 09/16 899 AC 09/17 SC 1529 Gabapentin 300 MG TID 09/16 899 AC 09/18 PO 2100 Loratadine 10 MG DAILY 09/16 899 AC 09/18 PO 0823 Methylprednisolone 40 MG Q12 09/18 2099 AC 09/18 IV 2101 Methylprednisolone 40 MG Q8H 09/17 799 DC 09/18 IV 0823 Montelukast Sodium 10 MG AT BEDTIME 09/16 2099 AC 09/18 PO 2100 Oxycodone HCl 30 MG Q4P PRN 09/15 2244 AC 09/19 PO 06 Paroxetine HCl 60 MG DAILY 09/16 899 AC 09/18 PO 823 Trazodone HCl 150 MG QPM 09/16 2099 AC 09/18 PO 2099 Last 24 Hrs of Lab/Luke Results Last 24 Hrs of Labs/Mics: Laboratory Tests 09/19/17 06: CBC w Diff NO MAN DIFF REQ, RBC 5.03, MCV 78.1 L, MCH 24.5 L, MCHC 31.3 L, RDW 16.0 H, MPV 9.5, Gran % 87.1 H, Lymphocytes % 9.1 L, Monocytes % 3.8, Eosinophils % 0, Basophils % 0, Absolute Granulocytes 13.3 H, Absolute Lymphocytes 1.4, Absolute Monocytes 0.6, Absolute Eosinophils 0, Absolute Basophils 0 Assessment/Plan Assessment: 36 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 She was discharged about 1 month ago for the same chief complaint from the hospital. She is currently admitted in the general medical floor for the management of following issues: Assessment/Plan: # Shortness of breath due to COPD Patient tolerated nasal cannula, seems to be better than yesterday. Her bilateral air entry is much better although she is wheezing, and also had to use her rescue inhaler last night once only, she seems to be improving, but still needs IV steroids and close monitoring for now. -Continue to monitor off Abx -Appreciate consultation with Dr. Verdugo -Still continuing IV Solu-Medrol 40 mg every 12 hr today -Plan to switch to poral steroid (prednisone) tomorrow per Pulm recs -Continue TRC nebs and O2 therapy -Continue Symbicort and Spiriva -Continue Singulair, loratadine #History of TMJ pain, fibromyalgia,Insomnia -Continue oxycodone when necessary, paroxetine, trazodone, gabapentin #Full code, DVT prophylaxis is subQ Lovenox and mechanical, regular diet, oxycodone and Tylenol for pain Problem List: 1. Asthma exacerbation 2. Cryptogenic organizing pneumonia Pain Ratin Pain Location: jaw, back Pain Goal: Pain 4 or less Pain Plan: prn, oxycodone Tomorrow's Labs & Rationales: CBC, BEP
[2017-09-19 08:21] LABS: ABSOLUTE BASOPHIL COUNT 0 /CUMM (0.0-0.2); ABSOLUTE EOSINOPHIL COUNT 0 /CUMM (0.0-0.7); ABSOLUTE GRANULOCYTE CT 13.3 /CUMM (1.4-6.5); ABSOLUTE LYMPH COUNT 1.4 /CUMM (1.2-3.4); ABSOLUTE MONOCYTE COUNT 0.6 /CUMM (0.10-0.60); BASOPHIL % 0 % (0.0-2.0); EOSINOPHIL % 0 % (0-5); GRANULOCYTE % 87.1 % (42.2-75.2); HEMATOCRIT 39.3 % (37-47); MEAN CORPUSCULAR HGB 24.5 PG (27.0-31.0); MEAN CORPUSCULAR HGB CONC 31.3 G/DL (33.0-37.0); MEAN CORPUSCULAR VOLUME 78.1 FL (81.0-99.0); MEAN PLATELET VOLUME 9.5 FL (7.4-10.4); PLATELET COUNT 375 /CUMM (130-400); RED BLOOD CELL CT 5.03 /CUMM (4.20-5.40); WHITE BLOOD CELL COUNT 15.2 /CUMM (4.8-10.8)
--- NOTE | 2017-09-19 13:38 | PN- Pulmonary ---
Subjective HPI/Critical Care Issues: Patient seen and examined this morning. She has had continued wheezing somewhat improved from yesterday. Objective Current Medications: Current Medications Sig/Nathan Start time Last Medication Dose Route Stop Time Status Admin Albuterol Sulfate 3 ML BID 09/18 2100 AC 09/19 INH 0958 Albuterol Sulfate 3 ML EVERY 4 HRS/AWAKE 09/16 0900 DC 09/18 INH 1248 Budesonide/ 2 PUF BID 09/16 09 AC 09/19 Formoterol Fumarate INH 1004 Enoxaparin Sodium 40 MG DAILY 09/16 09 AC 09/17 SC 1529 Gabapentin 300 MG TID 09/16 09 AC 09/19 PO 1004 Loratadine 10 MG DAILY 09/16 09 AC 09/19 PO 1004 Methylprednisolone 40 MG Q12 09/18 2099 AC 09/19 IV 1004 Montelukast Sodium 10 MG AT BEDTIME 09/16 2100 AC 09/18 PO 2100 Oxycodone HCl 30 MG Q4P PRN 09/15 2245 AC 09/19 PO 1004 Paroxetine HCl 60 MG DAILY 09/16 09 AC 09/19 PO 1003 Patient Medication 1 ED ONE ONE 09/19 0915 DC 09/19 Teaching ED 09/19 0916 1010 Trazodone HCl 150 MG QPM 09/16 2099 AC 09/18 PO 2100 Vital Signs & I&O Last 24 Hrs of Vitals and I&O: Vital Signs Date Time Temp Pulse Resp B/P B/P Pulse O2 O2 Flow FiO2 Mean Ox Delivery Rate 09/19 1002 22 91 Nasal 1.0L Cannula 09/19 1002 20 93 Nasal 2.0L Cannula 09/19 0958 96 Nasal 2.0L Cannula 09/19 0800 93 Nasal 2.0L Cannula 09/19 0605 97.9 75 20 118/86 95 Nasal 2.0L Cannula 09/19 0000 Nasal 2.0L Cannula 09/18 2118 97.8 75 18 110/62 94 Nasal 2.0L Cannula 09/18 1848 95 Nasal 2.0L Cannula 09/18 1600 97 Nasal 2.0L Cannula 09/18 1406 98.0 99 17 110/65 93 Nasal 2.0L Cannula Intake & Output 09/19 1600 09/19 0800 09/19 0000 Intake Total 600 480 Output Total Balance 600 480 Intake, Oral 600 480 Exam Other Physical Findings: gen awake and alert heent nasal cannula cvs s1, s2 lungs reduced wheezing no edema Results Last 24 Hrs of Lab Results: Laboratory Tests 09/19/17 0600: CBC w Diff NO MAN DIFF REQ, RBC 5.03, MCV 78.1 L, MCH 24.5 L, MCHC 31.3 L, RDW 16.0 H, MPV 9.5, Gran % 87.1 H, Lymphocytes % 9.1 L, Monocytes % 3.8, Eosinophils % 0, Basophils % 0, Absolute Granulocytes 13.3 H, Absolute Lymphocytes 1.4, Absolute Monocytes 0.6, Absolute Eosinophils 0, Absolute Basophils 0 Impression/Plan Impression/Plan Impression/Plan: Impression 36-year-old woman * Exacerbation of asthma * History of cryptogenic pneumonia Plan -continue solumedrol to 40mg iv q12 -plan to reduce to prednisone tomorrow -f/u at [facility] upon dc -TRC/Nebs DVT prophylaxis at all times
[2017-09-19 13:46] VITALS: BP 106/80
--- NOTE | 2017-09-19 17:21 | Patient Discharge Instructions ---
Discharge Instructions General Discharge Information You were seen/treated for: Asthma Exacerbation Special Instructions: Please follow up with Dr Verdugo (Oil And Gas Field Technician) after your discharge. Please follow up with [facility] after your discharge. Diet Continue normal diet: Yes Recommended Diet: Heart Healthy Activity Full Activity/No Limits: No Activity Self Limited: Yes Acute Coronary Syndrome Inclusion Criteria At DC or during hospital stay patient has or had the following: ACS DIAGNOSIS No Discharge Core Measures Meds if any: Prescribed or Continued at Discharge Meds if any: NOT Prescribed or Continued at Discharge Congestive Heart Failure Inclusion Criteria At DC or during hospital stay patient has or had the following: CHF DIAGNOSIS No Discharge Core Measures Meds if any: Prescribed or Continued at Discharge Meds if any: NOT Prescribed or Continued at Discharge Cerebrovascular accident Inclusion Criteria At DC or during hospital stay patient has or had the following: CVA/TIA Diagnosis No Discharge Core Measures Meds if any: Prescribed or Continued at Discharge Meds if any: NOT Prescribed or Continued at Discharge Venous thromboembolism Inclusion Criteria VTE Diagnosis No VTE Type NONE VTE Confirmed by (Test) NONE Discharge Core Measures - Per Current guidelines, there needs to be overlap - treatment for the first 5 days of Warfarin therapy. - If discharged on Warfarin prior to 5 days of - overlap therapy, the patient will need to be - assessed for post discharge needs including - *Post discharge parental anticoagulation - *Warfarin and/or parental anticoagulation education - *Follow up date to check INR post discharge At least 5 days overlap therapy as Inpatient No Meds if any: Prescribed or Continued at Discharge Note: Overlap Therapy is Warfarin and Anticoagulant Meds if any: NOT Prescribed or Continued at Discharge
[2017-09-19 21:44] VITALS: BP 140/94
--- NOTE | 2017-09-20 04:23 | PN- Housestaff ---
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 Patient reports that wheezing is better. NO Fevers or chills overnight. Vital signs are stable. Review of Systems Constitutional: Reports: see HPI. Objective Last 24 Hrs of Vital Signs/I&O Vital Signs Date Time Temp Pulse Resp B/P B/P Pulse O2 O2 Flow FiO2 Mean Ox Delivery Rate 09/19 2144 97.5 98 18 140/94 96 Nasal 2.0L Cannula 09/19 1905 95 Nasal 1.0L Cannula 09/19 1600 Nasal 1.0L Cannula 09/19 1410 22 92 Nasal 1.0L Cannula 09/19 1346 97.8 90 20 106/80 92 Nasal Cannula 09/19 1002 22 91 Nasal 1.0L Cannula 09/19 1002 20 93 Nasal 2.0L Cannula 09/19 0958 96 Nasal 2.0L Cannula 09/19 0800 93 Nasal 2.0L Cannula 09/19 0605 97.9 75 20 118/86 95 Nasal 2.0L Cannula Intake & Output 09/20 0800 09/20 0000 09/19 1600 Intake Total 420 920 Output Total Balance 420 920 Intake, IV 20 Intake, Oral 420 900 Number 0 Bowel Movements Physical Exam General Appearance: Alert, Oriented X3, Cooperative, No Acute Distress Other Physical Findings: Skin: No Rashes HEENT: Atraumatic, PERRLA, EOMI, Mucous Membr. moist/pink Neck: Supple Cardiovascular: Regular Rate, Normal S1, Normal S2, No Murmurs, Gallops, Rubs Lungs: b/l expiratory wheezes, no rhonchi Abdomen: Normal Bowel Sounds, Soft, No Tenderness Neurological: grossly intact Extremities: No Clubbing, No Cyanosis, No Edema, Normal Pulses, No Tenderness/ Swelling Vascular: Normal Pulses, Pulses Symmetrical Current Medications: Current Medications Sig/Nathan Start time Last Medication Dose Route Stop Time Status Admin Albuterol Sulfate 3 ML BID 09/18 2099 AC 09/19 INH 1905 Budesonide/ 2 PUF BID 09/16 899 AC 09/19 Formoterol Fumarate INH 2037 Enoxaparin Sodium 40 MG DAILY 09/16 SC 1529 Gabapentin 300 MG TID 09/16 899 AC 09/19 PO 203 Loratadine 10 MG DAILY 09/16 0900 AC 09/19 PO 1004 Methylprednisolone 40 MG Q12 09/18 2099 AC 09/19 IV 2037 Montelukast Sodium 10 MG AT BEDTIME 09/16 2099 AC 09/19 PO 2037 Oxycodone HCl 30 MG Q4P PRN 09/15 2245 AC 09/20 PO 0233 Paroxetine HCl 60 MG DAILY 09/16 0900 AC 09/19 PO 1003 Patient Medication 1 ED ONE ONE 09/19 0815 DC 09/19 Teaching ED 09/19 0916 1010 Trazodone HCl 150 MG QPM 09/16 2099 AC 09/19 PO 2037 Assessment/Plan Assessment: 36 yo F with pmh of 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 She was discharged about 1 month ago for the same chief complaint from the hospital. She is currently admitted in the general medical floor for the management of following issues: Assessment/Plan: # Shortness of breath due to COPD -Labs pending for today -Continue to monitor off Abx -we will follow consultation with Dr. Verdugo -on IV Solu-Medrol 40 mg every 12 hr, we changed it to prednisone 60 mg today -wean off oxygen -Continue TRC nebs and O2 therapy -Continue Symbicort and Spiriva -Continue Singulair, loratadine -Patient needs to follow-up at [facility] after discharge #History of TMJ pain, fibromyalgia,Insomnia -Continue oxycodone when necessary, paroxetine, trazodone, gabapentin #Full code, DVT prophylaxis is subQ Lovenox and mechanical, regular diet, oxycodone and Tylenol for pain Problem List: 1. Asthma exacerbation Pain Ratin Pain Location: no pain Pain Goal: Remain pain free Pain Plan: same Tomorrow's Labs & Rationales: cbc bep Lucina CHAPARRO,Quang 09/20/17 1147: Attending Review Statement Attending Statement Attending MD Statement: examined this patient, discuss w/resident/PA/CHICKEN BUYER, agreed w/resident/PA/CHICKEN BUYER, discussed with family, reviewed EMR data (avail), discussed with nursing, discussed with case mgmt, reviewed images, amended to note Attending Assessment/Plan: Quang Spencer M.D. have examined this patient, reviewed available EMR data, personally reviewed images, discussed with resident/PA/CHICKEN BUYER, discussed management plan with housestaff and nursing staff, discussed managment plan all of healthcare providers, discussed management plan with patient and/or family, agreed with resident/PA/CHICKEN BUYER. The past history and parts of the chart have been autopopulated. Impression 36-year-old woman * Exacerbation of asthma * History of cryptogenic pneumonia Plan -Solu-Medrol discontinued began on prednisone 60 mg HI daily taper by 10 mg every 3 days to her baseline -f/u at [facility] upon dc -TRC/Nebs DVT prophylaxis at all times
[2017-09-20 06:04] VITALS: BP 116/88
[2017-09-20 10:42] LABS: ABSOLUTE BASOPHIL COUNT 0 /CUMM (0.0-0.2); ABSOLUTE EOSINOPHIL COUNT 0 /CUMM (0.0-0.7); ABSOLUTE GRANULOCYTE CT 14.1 /CUMM (1.4-6.5); ABSOLUTE MONOCYTE COUNT 0.5 /CUMM (0.10-0.60); BASOPHIL % 0 % (0.0-2.0); EOSINOPHIL % 0.1 % (0-5); GRANULOCYTE % 84.6 % (42.2-75.2); HEMATOCRIT 41.9 % (37-47); MEAN CORPUSCULAR HGB 24.6 PG (27.0-31.0); MEAN CORPUSCULAR HGB CONC 31.6 G/DL (33.0-37.0); MEAN CORPUSCULAR VOLUME 77.8 FL (81.0-99.0); MEAN PLATELET VOLUME 9.3 FL (7.4-10.4); PLATELET COUNT 403 /CUMM (130-400); RBC DISTRIBUTION WIDTH 15.7 % (11.5-14.5); RED BLOOD CELL CT 5.38 /CUMM (4.20-5.40); WHITE BLOOD CELL COUNT 16.6 /CUMM (4.8-10.8)
[2017-09-20 14:57] VITALS: BP 140/78
[2017-09-20 21:21] VITALS: BP 120/80
[2017-09-21 06:06] VITALS: BP 108/80
[2017-09-21 08:42] LABS: ABSOLUTE BASOPHIL COUNT 0 /CUMM (0.0-0.2); ABSOLUTE EOSINOPHIL COUNT 0.2 /CUMM (0.0-0.7); ABSOLUTE GRANULOCYTE CT 11.1 /CUMM (1.4-6.5); ABSOLUTE LYMPH COUNT 3.7 /CUMM (1.2-3.4); ABSOLUTE MONOCYTE COUNT 0.9 /CUMM (0.10-0.60); BASOPHIL % 0.1 % (0.0-2.0); EOSINOPHIL % 1.3 % (0-5); GRANULOCYTE % 69.5 % (42.2-75.2); MEAN CORPUSCULAR HGB 24.5 PG (27.0-31.0); MEAN CORPUSCULAR HGB CONC 31.4 G/DL (33.0-37.0); MEAN CORPUSCULAR VOLUME 77.9 FL (81.0-99.0); MEAN PLATELET VOLUME 9.3 FL (7.4-10.4); PLATELET COUNT 362 /CUMM (130-400); RBC DISTRIBUTION WIDTH 15.5 % (11.5-14.5); RED BLOOD CELL CT 5.39 /CUMM (4.20-5.40)
--- NOTE | 2017-09-21 09:37 | PN- Housestaff ---
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 States feeling much better today. No breathing issues overnight. She did report having some tachycardia to 140s while walking. States her baseline heart rate is 110-120. Reports no anxiety. No cough or fevers overnight. Review of Systems Constitutional: Reports: see HPI. Objective Last 24 Hrs of Vital Signs/I&O Vital Signs Date Time Temp Pulse Resp B/P B/P Pulse O2 O2 Flow FiO2 Mean Ox Delivery Rate 09/21 0823 98 Room Air 09/21 0606 98.0 73 20 108/80 97 09/21 0000 94 Nasal 2.0L Cannula 09/20 2121 98.7 84 18 120/80 94 Room Air 09/20 1600 92 Nasal 0.5L Cannula 09/20 1457 98.1 82 20 140/78 92 Nasal Cannula 09/20 0956 93 Nasal 0.5L Cannula Intake & Output 09/21 1600 09/21 0800 09/21 0000 Intake Total 120 240 Output Total Balance 120 240 Intake, Oral 120 240 Physical Exam General Appearance: Alert, Oriented X3, Cooperative Cardiovascular: Regular Rate, Normal S1, Normal S2 Lungs: Clear to Auscultation, Normal Air Movement Abdomen: Soft Extremities: No Clubbing, No Cyanosis, No Edema Current Medications: Current Medications Sig/Nathan Start time Last Medication Dose Route Stop Time Status Admin Albuterol Sulfate 3 ML BID 09/18 INH 0819 Budesonide/ 2 PUF BID 09/16 Formoterol Fumarate INH 0742 Enoxaparin Sodium 40 MG DAILY 09/16 SC 1529 Gabapentin 300 MG TID 09/16 899 AC 09/21 PO 0743 Loratadine 10 MG DAILY 09/16 PO 0743 Montelukast Sodium 10 MG AT BEDTIME 09/16 PO 2148 Oxycodone HCl 30 MG Q4P PRN 09/15 PO 0625 Paroxetine HCl 60 MG DAILY 09/16 899 AC 09/21 PO 0743 Prednisone 60 MG DAILY 09/20 PO 0743 Trazodone HCl 150 MG QPM 09/16 PO 2147 Last 24 Hrs of Lab/Luke Results Last 24 Hrs of Labs/Mics: Laboratory Tests 09/21/17 0724: Anion Gap 14, Estimated GFR > 60, BUN/Creatinine Ratio 21.3, CBC w Diff NO MAN DIFF REQ, RBC 5.39, MCV 77.9 L, MCH 24.5 L, MCHC 31.4 L, RDW 15.5 H, MPV 9.3 , Gran % 69.5, Lymphocytes % 23.5, Monocytes % 5.6, Eosinophils % 1.3, Basophils % 0.1, Absolute Granulocytes 11.1 H, Absolute Lymphocytes 3.7 H, Absolute Monocytes 0.9 H, Absolute Eosinophils 0.2, Absolute Basophils 0 Assessment/Plan Assessment: 36-year-old woman with family history of cryptogenic organizing pneumonia ( maternal uncle), then BOOP (although there exists no genetic predisposition to developing COPD), other pulmonary issues in maternal side of family here for exacerbation of her asthma. 1. Acute asthma exacerbation. By mouth prednisone taper. Labs reviewed and stable. Follow-up with [facility] as an outpatient. Follow-up with Dr. Verdugo as an outpatient. Stable for discharge. 2. TMJ pain, fibromyalgia and insomnia. Continue narcotics when necessary. Continue paroxetine, trazodone and gabapentin. Full code. DVT prophylaxis with subcutaneous Lovenox. Regular diet. Problem List: 1. Cryptogenic organizing pneumonia Pain Ratin Pain Location: None Pain Goal: Remain pain free Pain Plan: Narcotics and Tylenol when necessary Tomorrow's Labs & Rationales: Not needed. Discharge Plan Stable for Discharge? Yes Quang Verdugo MD 09/21/17 1343: Attending MD Review Statement Attending Statement Attending Statement: examined this patient, discuss w/resident/PA/INCOMING INSPECTOR, agreed w/resident/PA/INCOMING INSPECTOR, discussed with family, reviewed EMR data (avail), discussed with nursing, discussed with case mgmt, reviewed images, amended to note Attending Assessment/Plan: Quang Spencer M.D. have examined this patient, reviewed available EMR data, personally reviewed images, discussed with resident/PA/INCOMING INSPECTOR, discussed management plan with housestaff and nursing staff, discussed managment plan all of healthcare providers, discussed management plan with patient and/or family, agreed with resident/PA/INCOMING INSPECTOR. The past history and parts of the chart have been autopopulated. Impression 36-year-old woman * Exacerbation of asthma * History of cryptogenic pneumonia Plan -prednisone 60 mg PO daily taper by 10 mg every 3 days to her baseline (40mg) -f/u at [facility] upon dc -TRC/Nebs DVT prophylaxis at all times Discharge today
[2017-09-21] MEDS ORDERED: PREDNISONE10 M2 PO ×2 (09:46→11:03)
== END 2017-09-21 12:00 | DRG 202 ==
LOC: ERH 16:15 → 2NB 21:06 → ERHI 21:06 → ENRESERV 21:31 → ENTRNSPT 22:06 → 2NB 22:18 → EDTRNSPT 22:25 → EDTRNSPTSTS 22:25 → CMPTRNSPT 22:33 → 2NB 09-16 12:57 → ENPENDDIS 09-21 11:05 → 2NB 09-21 12:00
PROVIDERS: Internal Medicine; Physician Assistant Medical; Student in an Organized Health Care Education/Training Program
DX: J45.51 Severe persistent asthma with (acute) exacerbation (principal); J84.116 Cryptogenic organizing pneumonia; D72.1 Eosinophilia; Z99.81 Dependence on supplemental oxygen; R09.02 Hypoxemia; F41.9 Anxiety disorder, unspecified; M26.609 Unspecified temporomandibular joint disorder, unspecified side; M79.7 Fibromyalgia; K58.1 Irritable bowel syndrome with constipation; Z90.49 Acquired absence of other specified parts of digestive tract; G47.00 Insomnia, unspecified; F32.9 Major depressive disorder, single episode, unspecified
CPT/HCPCS: 2NBSP; 36592; 71046; 82436; 87040; 93005; 93010; 96374; 99291; J1650; J2920; J2930; J3101; J3490

== ENCOUNTER 2017-10-18 18:26 | Inpatient (IN) | payer OTHER, MEDICARE ==
[~2017-10-18] VITALS: Ht 157.5 cm; Wt 83.6 kg
[~2017-10-18 18:26] MED LIST changes: +NEURONTIN100 M1 PO; +NEURONTIN300 M1 PO
--- NOTE | 2017-10-18 18:41 | ED GENERAL ADULT ---
History of Present Illness General Chief Complaint: Dyspnea (COPD, CHF, Other) Stated Complaint: BIBA SOB Source: patient Exam Limitations: no limitations Vital Signs & Intake/Output Vital Signs & Intake/Output Vital Signs Date Time Temp Pulse Resp B/P B/P Pulse O2 O2 Flow FiO2 Mean Ox Delivery Rate 10/18 1929 94 Nasal 4.0L Cannula 10/19 1843 90 Nasal 2.0L Cannula 10/19 1835 91 Aerosol 5.0L Mask 10/18 1832 97.7 117 24 144/77 91 Aerosol 5.0L Mask Allergies Coded Allergies: No Known Allergies (06/19/17) Reconcile Medications Albuterol Sulfate (Proair Hfa) 90 MCG HFA.AER.AD 2 PUF INH Q4-6 PRN PRN RESPIRATORY . Budesonide/Formoterol Fumarate (Symbicort 160-4.5 Mcg Inhaler) 160 MCG-4.5 MCG/ ACTUATION HFA.AER.AD 2 PUF INH BID SOB . Gabapentin (Neurontin) 100 MG CAPSULE 1 CAP PO TID pain (Reported) Hydroxyzine HCl (hydrOXYzine HCl) 10 MG TABLET 10 MG PO DAILY PRN FOR ALLERGY (Reported) Loratadine 10 MG TABLET 10 MG PO DAILY ASTHMA . Montelukast Sodium 10 MG TABLET 10 MG PO AT BEDTIME asthma . Oxycodone HCl 30 MG TABLET 1 TAB PO Q4H PRN PAIN (Reported) Paroxetine HCl 30 MG TABLET 2 TAB PO DAILY MENTAL HEALTH (Reported) Prednisone 10 MG TABLET 0 PO SI BREATHING TAKE 60 MG ON 09/22 #6 TAKE 50 MG FROM 09/23- 09/25 #15 TAKE 40 MG FROM 09/26 ONWARDS #80 SEE LUNG DOCTOR Tiotropium [place] (Spiriva) 18 MCG CAP.W.DEV 1 CAP INH DAILY ASTHMA . Trazodone HCl 50 MG TABLET 3 TAB PO QPM SLEEP (Reported) Triage Note: INS AND EXP WHEEZING NOTED WITH O2 SAT AT 88% RA WITIH RR 38. PT BROUGHT TO ROOM 10, ATTENDING CALLED TO THE BEDSIDE AND RESP THERAPIST PAGED Triage Nurses Notes Reviewed? yes Onset: Abrupt Duration: hour(s): Timing: recent history : No Patient currently breastfeeds: No HPI: 10/18/17 36-year-old female presents to the emergency department complaining of difficulty breathing. The patient has a history of severe asthma and acute necrotizing pneumonia. She is seen by Dr. Verdugo. She presents with severe difficulty breathing that began this afternoon. She used her rescue inhaler with minimal relief. She admits to difficulty breathing but denies fever. (Jackson Hardin DO) Past History Travel History Traveled to [place] past 21 day No Medical History Any Pertinent Medical History? see below for history Neurological: FIBROMYALGIA EENT: TMJ arthritis s/p jaw surgery at [facility] 2010 Cardiovascular: syncope (vasovagal(has had cardio eval)) Respiratory: asthma, bronchitis, pneumonia, CRYPTOGENIC ORGANIZING PNA Gastrointestinal: constipation (IBS), irritable bowel syndrome Hepatic: NONE Renal: NONE Musculoskeletal: fibromyalgia Psychiatric: anxiety Endocrine: NONE Blood Disorders: NONE Cancer(s): NONE [employer]/Reproductive: miscarriage, 2016 History of MRSA: No History of VRE: No History of CDIFF: No Influenza Vaccine: 05/06/16 Surgical History Surgical History: appendectomy, plantar wart removal jaw surgery for TMJ Psychosocial History Who do you live with Family Services at Home None What is your primary language French Tobacco Use: Never used ETOH Use: occasional use Illicit Drug Use: denies illicit drug use Family History Family History, If Any: FATHER (Asthma). FH: diabetes mellitus UNCLE-MATERNAL (BOOP). GRANDMOTHER-MATERNAL (CHF). Relation not specified for: FH: CAD (coronary artery disease) FH: HTN (hypertension) FH: ovarian cancer FH: uterine cancer Hx Contributory? No (Jackson Hardin DO) Review of Systems Review of Systems Constitutional: Denies: fever. EENTM: Denies: visual changes. Respiratory: Reports: short of breath. Cardiovascular: Denies: chest pain. GI: Denies: abdominal pain. Genitourinary: Reports: no symptoms. Musculoskeletal: Reports: no symptoms. Skin: Reports: no symptoms. Neurological/Psychological: Reports: no symptoms. Hematologic/Endocrine: Reports: no symptoms. Immunologic/Allergic: Reports: no symptoms. (Jackson Hardin DO) Physical Exam Physical Exam General Appearance: alert, awake, anxious, severe distress Head: atraumatic, normal appearance Eyes: Bilateral: normal appearance, PERRL, EOMI. Ears, Nose, Throat: normal pharynx, normal ENT inspection Neck: normal inspection, supple, full range of motion Respiratory: accessory muscle use, wheezing Cardiovascular: tachycardia Peripheral Pulses: 4+ radial (R), 4+ radial (L) Gastrointestinal: soft, non-tender Back: decreased range of motion Extremities: pedal edema Neurologic/Psych: no motor/sensory deficits, awake, alert, oriented x 3 Skin: intact, normal color, warm/dry Core Measures ACS in differential dx? No CVA/TIA Diagnosis: No Sepsis Present: No Sepsis Focused Exam Completed? No (Jackson Hardin DO) Progress Differential Diagnoses I considered the following diagnoses in my evaluation of the patient: [Asthma, pneumonia, pulmonary embolism, pneumothorax] Plan of Care: Orders Procedure Date/time Status Regular Diet 10/19 B Active ED Holding Orders 10/18 2004 Active Admit to inpatient 10/18 2004 Active Vital Signs 10/18 2004 Active Code Status 10/18 2004 Active Add-on Test (ER Only) 10/18 185 Active TROPONIN LEVEL 10/18 183 Active D-DIMER 10/18 183 Complete OXYGEN SETUP (GEN) 10/18 183 Active COMPREHENSIVE METABOLIC PANEL 10/18 183 Active CBC WITHOUT DIFFERENTIAL 10/19 1831 Complete EKG 10/18 183 Active Current Medications Sig/Nathan Start time Last Medication Dose Stop Time Status Admin Magnesium Sulfate 1 GM ONCE ONE 10/19 1999 UNVr (Mag Sulfate in D5) 10/18 2359 Dextrose/Water 100 ML (D5W) Laboratory Tests 10/18/171927: Sodium Pending, Potassium Pending, Chloride Pending, Carbon Dioxide Pending, Anion Gap Pending, BUN Pending, Creatinine Pending, BUN/Creatinine Ratio Pending , Glucose Pending, Calcium Pending, Total Bilirubin Pending, AST Pending, ALT Pending, Alkaline Phosphatase Pending, Troponin I Pending, Total Protein Pending , Albumin Pending, Globulin Pending, Albumin/Globulin Ratio Pending 10/18/17 1834: D-Dimer High Sensitivty 229, CBC w Diff NO MAN DIFF REQ, RBC 4.74, MCV 75.7 L, MCH 25.2 L, MCHC 33.3, RDW 16.9 H, MPV 8.2, Gran % 66.5, Lymphocytes % 21.7, Monocytes % 6.3, Eosinophils % 5.0, Basophils % 0.5, Absolute Granulocytes 8.6 H, Absolute Lymphocytes 2.8, Absolute Monocytes 0.8 H, Absolute Eosinophils 0.6 , Absolute Basophils 0.1 Initial ED EKG: sinus tach (Jackson Hardin DO) Comments: Patient is still wheezing with saturations of 89%. Patient states that magnesium sometimes does help her. Patient is very received nebulizers as well as IV steroids. Patient states continuous nebs have only made her jittery the past without helping her breathing. We'll give IV magnesium and admit to the hospital. (Cullen CHAPARRO,Raúl Camarena) Departure Departure Disposition: STILL A PATIENT Condition: Stable Referrals: James CHAPARRO,Socrates Mehta (PCP/Family) Departure Forms: Customer Survey General Discharge Information Comments 10/18/17 7 PM The patient was signed out to Dr. Berman at 7 PM. (Jackson Hardin DO) Departure Clinical Impression Primary Impression: Status asthmaticus Admission [facility] Documentation of Exam: Documentation of any treatments & extenuating circumstances including Concerns Regarding Discharge (functional status, medication knowledge or non-compliance, living conditions, etc.) that warrant an admission rather than observation: [ Admitted for nebulizers, respiratory treatments, IV steroids, pulmonary consultation, patient is at high risk with discharge to early.] (Cullen CHAPARRO,Raúl Camarena) Critical Care Note Critical Care Note Critical Care Time: 30-74 min (Jackson Hardin DO)
[2017-10-18 19:08] LABS: ABSOLUTE BASOPHIL COUNT 0.1 /CUMM (0.0-0.2); ABSOLUTE EOSINOPHIL COUNT 0.6 /CUMM (0.0-0.7); ABSOLUTE GRANULOCYTE CT 8.6 /CUMM (1.4-6.5); ABSOLUTE LYMPH COUNT 2.8 /CUMM (1.2-3.4); ABSOLUTE MONOCYTE COUNT 0.8 /CUMM (0.10-0.60); BASOPHIL % 0.5 % (0.0-2.0); GRANULOCYTE % 66.5 % (42.2-75.2); HEMATOCRIT 35.8 % (37-47); MEAN CORPUSCULAR HGB 25.2 PG (27.0-31.0); MEAN CORPUSCULAR HGB CONC 33.3 G/DL (33.0-37.0); MEAN CORPUSCULAR VOLUME 75.7 FL (81.0-99.0); MEAN PLATELET VOLUME 8.2 FL (7.4-10.4); PLATELET COUNT 469 /CUMM (130-400); RBC DISTRIBUTION WIDTH 16.9 % (11.5-14.5); RED BLOOD CELL CT 4.74 /CUMM (4.20-5.40)
--- NOTE | 2017-10-18 19:15 | RADIOLOGY REPORT ---
EXAMINATION: XR PORTABLE CHEST CLINICAL INFORMATION: Shortness of breath COMPARISON: August 2017 TECHNIQUE: Portable frontal view of the chest was obtained. FINDINGS: Infiltrates at lung base RIGHT lower lobe is improving however not completely cleared yet. There is no pleural effusion. Mediastinum and linda unchanged. IMPRESSION: Right lower lobe infiltrate is improving, has not completely cleared yet.
[2017-10-18] MEDS ORDERED: NEURONTIN300 M1 PO (20:13)
--- NOTE | 2017-10-18 20:21 | History & Physical ---
TrippBernie Dusty Horn 10/18/17 2016: General Information and HPI MD Statement: I have seen and personally examined TERESA RODRIGEZ and documented this H&P. The patient is a 36 year old F who presented with a patient stated chief complaint of [SOB]. Source of Information: patient, old records Exam Limitations: no limitations History of Present Illness: Ms. Rodrigez is a 36yo F w/ PMH of fibromyalgia, asthma on nocturnal oxygen of 2 L , cryptogenic pneumonia, syncope episodes on Paxil off label use (tilt-table positive since age of 20), s/p appendectomy 2016, anxiety, TMJ with pain controlled by oxycodone, presented to ER with cc of severe difficulty breathing. Patient was discharged from [facility] a month ago, and had been doing well for 2-3 weeks, starting last week she started to have symptoms of acute bronchitis including nonproductive cough, shortness of breath, and some ongoing chills/questionable fever of 99 (patient's baseline body temperature was around 93-94), and some inspiratory bilateral shoulder blade pain, along with cold sweats. Patient was trying all her home medications including ProAir inhalers, that she try pro-air for 5 times today, and found that her oxygen desat into 82% , and subsequently presented to the ER for further evaluation. Patient was supposed to be follow-up with [facility] a few for pulmonary biopsy to further diagnose of her cryptogenic pneumonia, however her appointment was postponed to second week of October. Patient finished the last tapering of prednisone from previous admission, and is currently on prednisone 40 mg daily. Patient is compliant with all home medications. Patient also endorsed some ongoing tachycardia for a long time, and once she was admitted to the telemetry floor, and saw Dr. Lozano for echocardiogram not ordered cardiac workup, however was found to be negative. During our clinical interaction, patient denied night sweat/weight change/ abdominal pain/bowel movement or urinary abnormality, or other skin/ musculoskeletal/neurological/mood disorders, or dietary/appetite change. -Smoking: Never -Alcohol: Never -Rec Drugs: Never Allergies/Medications Allergies: Coded Allergies: No Known Allergies (06/19/17) Past History Travel History Traveled to [place] past 21 day No Medical History Neurological: FIBROMYALGIA EENT: TMJ arthritis s/p jaw surgery at [facility] 2010 Cardiovascular: syncope (vasovagal(has had cardio eval)) Respiratory: asthma, bronchitis, pneumonia, CRYPTOGENIC ORGANIZING PNA Gastrointestinal: constipation (IBS), irritable bowel syndrome Hepatic: NONE Renal: NONE Musculoskeletal: fibromyalgia Psychiatric: anxiety Endocrine: NONE Blood Disorders: NONE Cancer(s): NONE 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 FH: diabetes mellitus UNCLE-MATERNAL (BOOP). GRANDMOTHER-MATERNAL (CHF). Relation not specified for: FH: CAD (coronary artery disease) FH: HTN (hypertension) FH: ovarian cancer FH: uterine cancer Psychosocial History Who Do You Live With? parent Services at Home: None Primary Language: Belizean Smoking Status: Never Smoked ETOH Use: occasional use Illicit Drug Use: denies illicit drug use Functional Ability ADLs Independent: dressing, eating, toileting, bathing. Ambulation: independent IADLs Independent: shopping, housework, finances, food prep, telephone, transportation , medication admin. Review of Systems Review of Systems Constitutional: Reports: see HPI. Exam & Diagnostic Data Last 24 Hrs of Vital Signs/I&O Vital Signs Date Time Temp Pulse Resp B/P B/P Pulse O2 O2 Flow FiO2 Mean Ox Delivery Rate 10/19 2007 99.2 99 20 116/73 95 Nasal 4.0L Cannula 10/18 1929 94 Nasal 4.0L Cannula 10/18 1844 90 Nasal 2.0L Cannula 10/18 183 91 Aerosol 5.0L Mask 10/18 1832 97.7 117 24 144/77 91 Aerosol 5.0L Mask Physical Exam General Appearance Alert, Oriented X3, Cooperative, No Acute Distress Skin No Rashes, No Breakdown, No Significant Lesion Skin Temp/Moisture Exam: Warm/Dry Sepsis Skin Exam (color): Normal for Ethnicity HEENT Atraumatic, PERRLA Neck Supple, No JVD Lymphatic Axillary nl, Cervical nl Cardiovascular tachycardia Lungs severe bilateral expiratory wheezing in all lung regions Abdomen Normal Bowel Sounds, Soft, No Tenderness Neurological Normal Speech, Strength at 5/5 X4 Ext, Sensation Intact Extremities No Clubbing, No Cyanosis, No Edema, Normal Pulses Last 24 Hrs of Labs/Luke: Laboratory Tests 05/26/18 1928: Anion Gap 9, Estimated GFR > 60, BUN/Creatinine Ratio 13.8, Glucose 111 H, Calcium 8.5, Total Bilirubin 0.6, AST 15, ALT 25, Alkaline Phosphatase 89, Troponin I < 0.01, Total Protein 6.0 L, Albumin 3.4 L, Globulin 2.6, Albumin/ Globulin Ratio 1.3 10/18/17 1834: D-Dimer High Sensitivty 229, CBC w Diff NO MAN DIFF REQ, RBC 4.74, MCV 75.7 L, MCH 25.2 L, MCHC 33.3, RDW 16.9 H, MPV 8.2, Gran % 66.5, Lymphocytes % 21.7, Monocytes % 6.3, Eosinophils % 5.0, Basophils % 0.5, Absolute Granulocytes 8.6 H, Absolute Lymphocytes 2.8, Absolute Monocytes 0.8 H, Absolute Eosinophils 0.6 , Absolute Basophils 0.1 Assessment/Plan Assessment: On admission, Vitals: Afebrile, tachycardia/tachypnea, BP 141/77, 94% on 4 L -CBC: Mild leukocytosis 14.0 likely for use of chronic steroids, H/H 11.9/25.8, PLT 469, MCV 75.7 -BMP: Unremarkable except CO2 31, likely from asthma exacerbation -CXR: Right lower lobe infiltrate is improving, has not completely cleared yet. -EKG: Sinus tach -Interventions in ER: Nebulizer plus IV Solu-Medrol 1251 Problem list & Assessment: #Asthma exacerbation #Cryptogenic pneumonia, currently stable with improved CXR #PMH of fibromyalgia, syncope episodes, anxiety, TMJ Hospital Course: - Admit to general medicine, vitals per protocol #Supplemental oxygen, currently 4 L to keep the patient around 91%, TRC/ nebulizer as needed DVT prophylaxis Lovenox + ALPS Regular Diet Full Code As Ranked By This Provider Problem List: 1. Dyspnea 2. Cryptogenic organizing pneumonia 3. Asthma with acute exacerbation in adult Core Measures/Misc (02/09) Acute Coronary Syndrome ACS Diagnosis: No Congestive Heart Failure Congestive Heart Failure Diagnosis No Cerebrovascular Accident CVA/TIA Diagnosis: No VTE (View Protocol) VTE Risk Factors Acute Medical Illness No Mechanical VTE Prophylaxis d/t N/A MechProphylax Ordered No VTE Pharm Prophylaxis d/t NA PharmProphylax ordered Sepsis (View protocol) Sepsis Present: No If YES complete Sepsis Event Note If YES complete Sepsis Event Note Olga Bosch 10/18/176: General Information and HPI Allergies/Medications Home Med list Albuterol Sulfate (Proair Hfa) 90 MCG HFA.AER.AD 2 PUF INH Q4-6 PRN PRN RESPIRATORY . Budesonide/Formoterol Fumarate (Symbicort 160-4.5 Mcg Inhaler) 160 MCG-4.5 MCG/ ACTUATION HFA.AER.AD 2 PUF INH BID SOB . Gabapentin (Neurontin) 300 MG CAPSULE 1 CAP PO TID NERVE PAIN (Reported) Hydroxyzine HCl (hydrOXYzine HCl) 10 MG TABLET 10 MG PO DAILY PRN FOR ALLERGY (Reported) Loratadine 10 MG TABLET 10 MG PO DAILY ASTHMA . Montelukast Sodium 10 MG TABLET 10 MG PO AT BEDTIME asthma . Oxycodone HCl 30 MG TABLET 1 TAB PO DAILY PRN PAIN (Reported) Paroxetine HCl 30 MG TABLET 1 TAB PO DAILY MENTAL HEALTH (Reported) Prednisone 10 MG TABLET 4 TAB PO DAILY BREATHING Tiotropium [place] (Spiriva) 18 MCG CAP.W.DEV 1 CAP INH DAILY ASTHMA . Trazodone HCl 50 MG TABLET 3 TAB PO QPM SLEEP (Reported) Core Measures/Misc (02/09) Sepsis (View protocol) If YES complete Sepsis Event Note If YES complete Sepsis Event Note Resident Review Statement Resident Statement: examined this patient, discussed with administration intern Other Findings: Ms Rodrigez is a 36-year-old female with a PMHx of cryptogenic organizing pneumonia ( biopsy not done yet), asthma on 2 L of nocturnal oxygen , peripheral eosinophilia, elevated IgE, fibromyalgia, syncope, TMJ disorder, multiple recent hospitalizations to [facility] for asthma exacerbations, was last discharged 09/18/17 for exacerbation of asthma on tapering dose of steroids currently maintained on prednisone 40 mg daily came to the hospital with a chief concern of acute onset of dyspnea that started on the day of ER presentation. She has been using rescue inhaler up to 5 times a day lately, and had an episode of acute onset of dyspnea this afternoon when she was sitting in her chair-non exertional; and was found to be hypoxemic up to 80s when she checked her pulse ox. Has been having nonproductive cough for the last few days. He reported shoulder pain, but did not have any chest tightness. Reported chills and felt hot, but temperature was normal. No wheezing, palpitations, sick contacts, orthopnea or PND. No prolonged immobility in the recent past. She was due to get biopsy of the lung done at [facility], for the diagnosis of cryptogenic organizing pneumonia. Unfortunately due to her frequent exacerbations of asthma, it was not done. At the time of admission-temperature 97.7, pulse rate 107, this patient 24, blood pressure 144/77, 91% on 5 L oxygen. At the time of arrival, she was found to have expiratory wheezing and not oxygen saturation of 88% on room air. She was given albuterol, ipratropium, magnesium sulfate and also Solu-Medrol. General Exam: AAOx3, No acute distress, and was speaking in complete sentences, but did not use any accessory muscles. Skin: No rashes, no breakdown; HEENT: PERRLA, EOMI; Neck: Supple, No JVD, slight fullness in supraclavicular regions, but no hump, no prox muscle weakness; No cervical lymphadenopathy; CVS: Reg Rate , Normal S1,S2, No MGR; Resp: decreased air entry, no ronchi/rales, b/l wheezes ;Abdomen: Soft, No tenderness, Normal Bowel Sounds;Neuro: Normal Speech, Strength 5/5 b/l x 4 extremities, Sensation intact, CN III-XII NL, Reflexes 2+; Extremities: No cyanosis, no pedal edema Pertinent Findings: WBC 13.0 (likely because of steroids), hemoglobin 11.9(last check 13.2 09/21/17), MCV 75.7, platelets 469. Sodium 137 potassium 3.9, chloride 97, bicarbonate 31. Renal function-BUN 11, creatinine 0.8, Anion gap 9. D-dimer 229. Chest x-ray-10/18/2017-Right lower lobe infiltrate is improving, has not completely cleared yet. EKG reveals sinus tachycardia, with no ST-T wave changes. Last echocardiogram done on 08/22/2016- 1. This was a technically difficult examination. 2. The aortic valve is trileaflet and normal. 3. Mild thickening of the mitral leaflets is present with minimal mitral insufficiency. 4. A very small pericardial effusion is present. 5. The left ventricular chamber size and systolic function are normal with no resting wall motion abnormalities. 6. The rigth heart structures are grossly normal. Minimal tricuspid insufficiency is present. The RV systolic pressure could not be accurately assessed on this examination. Last pulmonary function test done on 04/24/2015 The subdivisions of lung volume show an increased TLC, RV. FRC, FVC are normal. FEV1 is normal. CHA56-92 is reduced. The FEV1/FVC ratio is normal. There is significant improvement following bronchodilators. Diffusing capacity is normal. Room air oximetry is reduced. There is desaturation with ambulation. Mild obstructive lung disease primarily of the small airways with a reversible component, hyperinflation, airtrapping and resting desaturation. Etiology in her case is likely asthma exacerbation, with frequent use of rescue inhaler and recent exacerbations requiring hospitalizations. She has a possible diagnosis of cryptogenic organizing pneumonia, with history of peripheral eosinophilia and hyper IgE also. Other differentials such as chronic eosinophilic pneumonia, interstitial lung disease are not completely ruled out. Underlying lung pathology could be contributing to her symptoms, also. It is unlikely that she has any pneumonia from an infective cause at this time, requiring any antibiotics. In regards to tachycardia, which was investigated by the federal java developer is likely sinus tachycardia. PE was considered and differentials, but low d-dimer and will score rule it out. She does have some cushingoid features, likely due to chronic prednisone use which needs to be worked up as an outpatient. Problem list: #1 acute exacerbation of asthma, acute hypoxic respiratory failure #2 leukocytosis-likely reactive #3 history of eosinophilia #4 history of possible cryptogenic organizing pneumonia #5 elevated IgE #6 class II obesity #7 sinus tachycardia #8 microcytic anemia She should be admitted to general medicine service for the management of acute exacerbation of asthma and acute hypoxic respiratory failure. Plan: #1 for the treatment of acute exacerbation of asthma, she should be continued on intravenous Solu-Medrol 40 mg every 6 which should be tapered down to every 8 in the next 24 hours. She was on prednisone 40 mg daily, which should be continued at the time of discharge after taper. She also needs beta agonist, anticholinergics while she is in the hospital. Continue montelukast, Singulair. She is currently stable, but would check her vitals closely given her history of frequent exacerbations. At this time, she does not need any intubation/ BiPAP. #2 tachycardia seems to be adequately controlled, and she is not on any beta maciel at this time. If she has any worsening symptoms, transferring to telemetry could be considered. At this time she is stable. #3 leukocytosis is likely reactive. Check CBCs in the a.m. No antibiotics are indicated at this time. Although she has leukocytosis, tachycardia which are unlikely from an infective source. #4 microcytic anemia-likely nutritional, iron deficiency or familial. Iron 17, TIBC 342, ferritin 27.8 done on 06/2017. Housekeeping checklist- #1 DVT prophylaxis-subcutaneous heparin #2 GI prophylaxis-Protonix if needed. #3 CODE STATUS-full code, discussed with the patient. #4 consults-none at this time. Pulmonology if needed. #5 pain management-Tylenol and oxycodone as needed. CTPMP checked. #6 medication reconciliation-done. 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 This was associated with low grade temps, lightheadedness and sweating. She tried her inhalers without relief. She noted her sats were in the low 80's on RA. No sick contacts or recent travel. 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 She was also intermittently on Bactrim for PJP prophylaxis but is not on it anymore. Vitals: afebrile, tachycardic, BP 102/66, sats 95% on 4L. Exam: AAO, diaphoretic , in mild respiratory distress, Neck supple, Chest b/l reduced air entry with prolonged expiratory wheeze++, Heart S1S2 regular, tachycardic. Labs: WBC 13 on steroids, microcytic anemia, eosinophils 5%, bicarb 31, trop neg. IgE is elevated 120 (Mar 2017). CXR: right lower lobe infiltrate is improving, not cleared yet. PFT (2015): mild obstructive lung disease with reversible component, hyperinflation, airtrapping and resting desaturation. Echo (2017): EF 65-70% EKG: sinus tachycardia Assessment and plan: 1. Acute on chronic hypoxic respiratory failure 2. Severe persistent asthma with exacerbation with eosinophilia 3. Cryptogenic organizing pneumonia on chronic prednisone 4. Leukocytosis 2/2 steroid use 5. Microcytic anemia - Admit to General medicine - Scheduled and PRN albuterol and ipratropium nebs - O2 supplementation - Sputum culture - IV solumedrol 40 Q6 and then taper - Accuchecks while on steroids - CXR suggests resolving RLL infiltrate, will watch off antibiotics - Pulm consult - Outpatient follow up with [facility] - Work up anemia DVT ppx Lovenox. Full code.
--- NOTE | 2017-10-18 20:22 | Admission Certification ---
Admission Certification Certification Statement - As attending physician, I certify that at the time of - admission, based on clinical presentation, severity of - symptoms, need for further diagnostic testing and - therapeutic interventions, and risk of adverse outcomes - without in-hospital treatment, in my clinical assessment, - this patient requires an acute hospital stay for a minimum - of two nights or longer. I have also considered psychsocial - factors such as support system, advanced age, financial - issues, cognitive issues, and failed out-patient treatments, - past re-admission history, safety of patient, and lack of - compliance as applicable. Specific rationale supporting this admission is: Acute hypoxic respiratory failure, asthma exacerbation, history of cryptogenic pneumonia.
[2017-10-18] MEDS ORDERED: PREDNISONE10 M2 PO (21:22)
[2017-10-18 22:00] VITALS: BP 102/66
[2017-10-18 22:32] VITALS: BP 102/66
[2017-10-19 06:49] VITALS: BP 108/62
--- NOTE | 2017-10-19 08:41 | PN- Housestaff ---
Subjective Follow-up For: Asthma exacerbation History of cryptogenic organizing pneumonia; patient will be following at [facility] in early October History of fibromyalgia History of anxiety disorder History of TMJ Subjective: Patient seen and examined. She states that she is is feeling better compared to yesterday. She denies any chest pain fever chills overnight. She is on 4 L nasal cannula and saturating well. Denies any nausea vomiting or abdominal pain. The patient still complains of wheezing. Review of Systems Constitutional: Reports: no symptoms. EENTM: Reports: no symptoms. Cardiovascular: Reports: no symptoms. Respiratory: Reports: cough, short of breath, wheezing. Gastrointestinal: Reports: no symptoms. Genitourinary: Reports: no symptoms. Musculoskeletal: Reports: no symptoms, joint pain. Skin: Reports: no symptoms. Neurological/Psychological: Reports: no symptoms. Objective Last 24 Hrs of Vital Signs/I&O Vital Signs Date Time Temp Pulse Resp B/P B/P Pulse O2 O2 Flow FiO2 Mean Ox Delivery Rate 10/19 1550 97.3 71 20 110/60 92 Nasal Cannula 10/19 1056 Nasal 4.0L Cannula 10/19 0800 97 Nasal 4.0L Cannula 10/19 0649 97.5 69 20 108/62 91 10/18 2234 93 Nasal 4.0L Cannula 10/19 2231 98.5 89 20 102/66 93 10/18 2200 98.9 89 20 102/66 93 Nasal 4.0L Cannula 10/187 98.7 90 18 115/57 95 Nasal 4.0L Cannula 10/19 2007 99.2 99 20 116/73 95 Nasal 4.0L Cannula 10/18 1930 94 Nasal 4.0L Cannula 10/18 1844 90 Nasal 2.0L Cannula 10/18 1836 91 Aerosol 5.0L Mask 10/18 1833 97.7 117 24 144/77 91 Aerosol 5.0L Mask Intake & Output 10/19 1600 10/19 0800 10/19 0000 Intake Total 477 623 3752 Output Total Balance 278 634 1808 Intake, IV 1000 Intake, Oral 740 100 100 Number 0 Bowel Movements Patient 184 lb 190 lb Weight Weight Bed scale Reported by Patient Measurement Method Physical Exam General Appearance: Alert, Oriented X3, Cooperative, No Acute Distress Skin: No Rashes, No Breakdown, No Significant Lesion Skin Temp/Moisture Exam: Warm/Dry HEENT: Atraumatic, PERRLA, EOMI, Mucous Membr. moist/pink, right TMJ pain that is worse on palpation Neck: Supple, No JVD Cardiovascular: Regular Rate, Normal S1, Normal S2, No Murmurs Lungs: wheezing throughout Abdomen: Normal Bowel Sounds, Soft, No Tenderness, No Hepatospenomegaly Neurological: Normal Speech Extremities: No Clubbing, No Cyanosis, No Edema, Normal Pulses Vascular: Normal Pulses Current Medications: Current Medications Sig/Nathan Start time Last Medication Dose Route Stop Time Status Admin Acetaminophen 650 MG Q8P PRN 10/18 223 AC PO Albuterol Sulfate 3 ML BID 10/19 1055 AC 10/19 INH 1055 Albuterol Sulfate 2 PUF Q4-6 PRN PRN 10/18 213 AC INH Albuterol Sulfate 3 ML ONCE ONE 10/18 184 DC 10/18 INH 10/18 184 193 Albuterol Sulfate 3 ML ONCE ONE 10/18 183 DC 10/18 INH 10/18 183 184 Budesonide/ 2 PUF BID 10/18 2199 AC 10/19 Formoterol Fumarate INH 0802 Gabapentin 300 MG TID 10/18 2199 AC 10/19 PO 1421 Heparin Sodium 5,000 UNIT Q8 10/18 2199 AC 10/19 (Porcine) SC 0537 Ipratropium [place] 2.5 ML ONCE ONE 10/18 183 DC 10/18 INH 10/18 183 193 Ipratropium [place] 2.5 ML ONCE ONE 10/18 183 DC 10/18 INH 10/18 183 184 Loratadine 10 MG DAILY 10/19 09 AC 10/19 PO 0803 Magnesium Sulfate 1 GM ONCE ONE 10/19 1999 OK 10/18 Dextrose/Water 100 ML IV 10/18 Methylprednisolone 40 MG Q6 10/19 06 AC 10/19 IV 1147 Methylprednisolone 125 MG ONCE ONE 10/18 184 DC 10/18 IV 10/18 184 184 Methylprednisolone 0 .STK-MED ONE 10/18 184 DC .ROUTE Montelukast Sodium 10 MG 0 10/18 2199 AC 10/18 PO 2333 Oxycodone HCl 30 MG Q4 HRS NEEDED PRN 10/19 2214 DC PO Oxycodone HCl 30 MG DAILY 10/19 09 DC PO Oxycodone HCl 30 MG Q4 HRS NEEDED PRN 10/18 2245 AC 10/19 PO 1420 Paroxetine HCl 30 MG DAILY 10/19 0900 AC 10/19 PO 0759 Sodium Chloride 500 ML BOLUS ONE 10/18 1844 DC 10/18 IV 10/18 Tiotropium [place] 1 PUF DAILY 10/19 0900 AC 10/19 INH 0801 Trazodone HCl 150 MG QPM 10/18 2200 AC 10/18 PO 2334 Last 24 Hrs of Lab/Luke Results Last 24 Hrs of Labs/Mics: Laboratory Tests 10/19/17 0745: Anion Gap 9, Estimated GFR > 60, BUN/Creatinine Ratio 18.3, CBC w Diff NO MAN DIFF REQ, RBC 4.50, MCV 76.7 L, MCH 24.7 L, MCHC 32.2 L, RDW 16.6 H, MPV 7.9 , Gran % 86.2 H, Lymphocytes % 12.2 L, Monocytes % 1.1 L, Eosinophils % 0.2, Basophils % 0.3, Absolute Granulocytes 10.0 H, Absolute Lymphocytes 1.4, Absolute Monocytes 0.1, Absolute Eosinophils 0, Absolute Basophils 0 10/18/171927: Anion Gap 9, Estimated GFR > 60, BUN/Creatinine Ratio 13.8, Glucose 111 H, Calcium 8.5, Total Bilirubin 0.6, AST 15, ALT 25, Alkaline Phosphatase 89, Troponin I < 0.01, Total Protein 6.0 L, Albumin 3.4 L, Globulin 2.6, Albumin/ Globulin Ratio 1.3 10/18/17 1834: D-Dimer High Sensitivty 229, CBC w Diff NO MAN DIFF REQ, RBC 4.74, MCV 75.7 L, MCH 25.2 L, MCHC 33.3, RDW 16.9 H, MPV 8.2, Gran % 66.5, Lymphocytes % 21.7, Monocytes % 6.3, Eosinophils % 5.0, Basophils % 0.5, Absolute Granulocytes 8.6 H, Absolute Lymphocytes 2.8, Absolute Monocytes 0.8 H, Absolute Eosinophils 0.6 , Absolute Basophils 0.1 Assessment/Plan Assessment: Ms. Vásquez is a 36yo F w/ PMH of fibromyalgia, asthma on nocturnal oxygen of 2 L , cryptogenic pneumonia, syncope episodes on Paxil off label use (tilt-table positive since age of 20), s/p appendectomy 2016, anxiety, TMJ with pain controlled by oxycodone, presented to ER with cc of severe difficulty breathing. Patient was discharged from [facility] a month ago, and had been doing well for 2-3 weeks, starting last week she started to have symptoms of acute bronchitis including nonproductive cough, shortness of breath, and some ongoing chills/questionable fever of 99 (patient's baseline body temperature was around 93-94), and some inspiratory bilateral shoulder blade pain, along with cold sweats. Patient was trying all her home medications including ProAir inhalers, that she try pro-air for 5 times today, and found that her oxygen desat into 82% , and subsequently presented to the ER for further evaluation. Patient was supposed to be follow-up with [facility] a few for pulmonary biopsy to further diagnose of her cryptogenic pneumonia, however her appointment was postponed to second week of October. Patient finished the last tapering of prednisone from previous admission, and is currently on prednisone 40 mg daily. Patient is compliant with all home medications. Patient also endorsed some ongoing tachycardia for a long time, and once she was admitted to the telemetry floor, and saw Dr. Lozano for echocardiogram not ordered cardiac workup, however was found to be negative. On admission, Vitals: Afebrile, tachycardia/tachypnea, BP 141/77, 94% on 4 L -CBC: Mild leukocytosis 14.0 likely for use of chronic steroids, H/H 11.9/25.8, PLT 469, MCV 75.7 -BMP: Unremarkable except CO2 31, likely from asthma exacerbation -CXR: Right lower lobe infiltrate is improving, has not completely cleared yet. -EKG: Sinus tach -Interventions in ER: Nebulizer plus IV Solu-Medrol 1251 Problem list & Assessment: #Asthma exacerbation #Cryptogenic pneumonia, currently stable with improved CXR #PMH of fibromyalgia, syncope episodes, anxiety, TMJ Hospital Course: -Admit to general medicine, vitals per protocol -TRC nebs -Supplemental oxygen, currently 4 L to keep the patient around 91%, TRC/ nebulizer as needed prednisone tomorrow depending upon clinical course -We will defer pulmonary consult as the patient has been worked up on previous admissions and is currently pursuing outpatient workup with [place]. This patient is a patient of Dr. Verdugo's. DVT prophylaxis Lovenox + ALPS Regular Diet Full Code Problem List: 1. Dyspnea 2. Bronchitis 3. Cryptogenic organizing pneumonia Pain Ratin Pain Location: TMJ Pain Goal: Pain 4 or less Pain Plan: Oxycodone Tomorrow's Labs & Rationales: na
[2017-10-19 09:11] LABS: ABSOLUTE BASOPHIL COUNT 0 /CUMM (0.0-0.2); ABSOLUTE EOSINOPHIL COUNT 0 /CUMM (0.0-0.7); ABSOLUTE LYMPH COUNT 1.4 /CUMM (1.2-3.4); ABSOLUTE MONOCYTE COUNT 0.1 /CUMM (0.10-0.60); BASOPHIL % 0.3 % (0.0-2.0); EOSINOPHIL % 0.2 % (0-5); HEMATOCRIT 34.5 % (37-47); MEAN CORPUSCULAR HGB 24.7 PG (27.0-31.0); MEAN CORPUSCULAR HGB CONC 32.2 G/DL (33.0-37.0); MEAN CORPUSCULAR VOLUME 76.7 FL (81.0-99.0); MEAN PLATELET VOLUME 7.9 FL (7.4-10.4); PLATELET COUNT 405 /CUMM (130-400); RBC DISTRIBUTION WIDTH 16.6 % (11.5-14.5); WHITE BLOOD CELL COUNT 11.6 /CUMM (4.8-10.8)
[2017-10-19 09:55] LABS: GRANULOCYTE % 86.2 % (42.2-75.2)
--- NOTE | 2017-10-19 13:22 | PN- Att Addend ---
Attending Addendum Attending Brief Note Patient seen and examined. Plan of care discussed with the medical team and the patient. Available lab work and radiology test reports were reviewed. Patient is feeling better compared to yesterday. She denies a any chest pain fever chills overnight. Denies any nausea vomiting or abdominal pain. She remains on oxygen and still complains of wheezing. Exam: General: Patient awake alert oriented without any distress CVS: S1 plus S2 without any murmur or gallops Chest: Bilateral expiratory wheezing There is no respiratory distress. Abdomen: Soft non-tender, bowel sound present, no guarding or rebound FAMILY SERVICES COORDINATOR: Awake alert oriented without any focal neuro deficit and follows commands appropriately Extremities: No edema; no clubbing or cyanosis noted Assessment and problem list * Asthma exacerbation * History of cryptogenic organizing pneumonia; patient will be following at [facility] in early October * History of fibromyalgia * History of anxiety disorder * History of TMJ Plan * Continue Solu-Medrol * We'll try to switch to oral prednisone tomorrow * Continue oxygen and taper as tolerated * Out of bed and ambulate * Avoid further radiology testing since patient will be worked up to [place] Current Medications Sig/Nathan Start time Last Medication Dose Route Stop Time Status Admin Acetaminophen 650 MG Q8P PRN 10/18 2230 AC PO Albuterol Sulfate 3 ML BID 10/19 1055 AC 10/19 INH 1055 Albuterol Sulfate 2 PUF Q4-6 PRN PRN 10/18 2130 AC INH Albuterol Sulfate 3 ML ONCE ONE 10/18 1845 DC 10/18 INH 10/18 1846 1930 Albuterol Sulfate 3 ML ONCE ONE 10/18 1830 DC 10/18 INH 10/18 1831 1843 Budesonide/ 2 PUF BID 10/18 2200 AC 10/19 Formoterol Fumarate INH 0802 Gabapentin 300 MG TID 10/18 2200 AC 10/19 PO 0800 Heparin Sodium 5,000 UNIT Q8 10/18 2199 AC 10/19 (Porcine) SC 0537 Ipratropium [place] 2.5 ML ONCE ONE 10/18 1830 DC 10/18 INH 10/18 183 1930 Ipratropium [place] 2.5 ML ONCE ONE 10/18 1830 DC 10/18 INH 10/18 183 1843 Loratadine 10 MG DAILY 10/19 0900 AC 10/19 PO 0803 Magnesium Sulfate 1 GM ONCE ONE 10/19 1999 DC 10/18 Dextrose/Water 100 ML IV 10/18 Methylprednisolone 40 MG Q6 10/19 0600 AC 10/19 IV 1147 Methylprednisolone 125 MG ONCE ONE 10/18 1844 DC 10/18 IV 10/18 184 184 Methylprednisolone 0 .STK-MED ONE 10/18 1844 DC .ROUTE Montelukast Sodium 10 MG 10/18 AC 10/18 PO 2333 Oxycodone HCl 30 MG Q4 HRS NEEDED PRN 10/19 2214 DC PO Oxycodone HCl 30 MG DAILY 10/19 09 DC PO Oxycodone HCl 30 MG Q4 HRS NEEDED PRN 10/18 224 AC 10/19 PO 0946 Paroxetine HCl 30 MG DAILY 10/19 09 AC 10/19 PO 0759 Sodium Chloride 500 ML BOLUS ONE 10/18 1844 DC 10/18 IV 10/18 194 184 Tiotropium [place] 1 PUF DAILY 10/19 09 AC 10/19 INH 0801 Trazodone HCl 150 MG QPM 10/18 2199 AC 10/18 PO 2334 Laboratory Tests 10/19/17 0745: Anion Gap 9, Estimated GFR > 60, BUN/Creatinine Ratio 18.3, CBC w Diff NO MAN DIFF REQ, RBC 4.50, MCV 76.7 L, MCH 24.7 L, MCHC 32.2 L, RDW 16.6 H, MPV 7.9 , Gran % 86.2 H, Lymphocytes % 12.2 L, Monocytes % 1.1 L, Eosinophils % 0.2, Basophils % 0.3, Absolute Granulocytes 10.0 H, Absolute Lymphocytes 1.4, Absolute Monocytes 0.1, Absolute Eosinophils 0, Absolute Basophils 0 10/18/171927: Anion Gap 9, Estimated GFR > 60, BUN/Creatinine Ratio 13.8, Glucose 111 H, Calcium 8.5, Total Bilirubin 0.6, AST 15, ALT 25, Alkaline Phosphatase 89, Troponin I < 0.01, Total Protein 6.0 L, Albumin 3.4 L, Globulin 2.6, Albumin/ Globulin Ratio 1.3 10/18/171833: D-Dimer High Sensitivty 229, CBC w Diff NO MAN DIFF REQ, RBC 4.74, MCV 75.7 L, MCH 25.2 L, MCHC 33.3, RDW 16.9 H, MPV 8.2, Gran % 66.5, Lymphocytes % 21.7, Monocytes % 6.3, Eosinophils % 5.0, Basophils % 0.5, Absolute Granulocytes 8.6 H, Absolute Lymphocytes 2.8, Absolute Monocytes 0.8 H, Absolute Eosinophils 0.6 , Absolute Basophils 0.1 Vital Signs Date Time Temp Pulse Resp B/P B/P Pulse O2 O2 Flow FiO2 Mean Ox Delivery Rate 10/19 1056 Nasal 4.0L Cannula 10/19 0800 97 Nasal 4.0L Cannula 10/19 0649 97.5 69 20 108/62 91 10/18 2233 93 Nasal 4.0L Cannula 10/19 2231 98.5 89 20 102/66 93 10/18 2199 98.9 89 20 102/66 93 Nasal 4.0L Cannula 10/18 2136 98.7 90 18 115/57 95 Nasal 4.0L Cannula 10/19 2007 99.2 99 20 116/73 95 Nasal 4.0L Cannula 10/18 1930 94 Nasal 4.0L Cannula 10/18 1844 90 Nasal 2.0L Cannula 10/18 1836 91 Aerosol 5.0L Mask 10/18 1832 97.7 117 24 144/77 91 Aerosol 5.0L Mask Intake & Output 10/19 1600 10/19 0800 10/19 0000 Intake Total 100 1100 Output Total Balance 100 1100 Intake, IV 1000 Intake, Oral 100 100 Patient 184 lb 190 lb Weight Weight Bed scale Reported by Patient Measurement Method
[2017-10-19 15:50] VITALS: BP 110/60
[2017-10-19 22:15] VITALS: BP 122/80
[2017-10-20 06:50] VITALS: BP 106/74
[2017-10-20 09:22] LABS: ABSOLUTE BASOPHIL COUNT 0 /CUMM (0.0-0.2); ABSOLUTE EOSINOPHIL COUNT 0 /CUMM (0.0-0.7); ABSOLUTE GRANULOCYTE CT 14.6 /CUMM (1.4-6.5); ABSOLUTE LYMPH COUNT 2.1 /CUMM (1.2-3.4); ABSOLUTE MONOCYTE COUNT 0.5 /CUMM (0.10-0.60); BASOPHIL % 0.2 % (0.0-2.0); EOSINOPHIL % 0 % (0-5); HEMATOCRIT 32.9 % (37-47); MEAN CORPUSCULAR HGB 24.8 PG (27.0-31.0); MEAN CORPUSCULAR HGB CONC 32.2 G/DL (33.0-37.0); MEAN CORPUSCULAR VOLUME 77.2 FL (81.0-99.0); MEAN PLATELET VOLUME 8.3 FL (7.4-10.4); PLATELET COUNT 434 /CUMM (130-400); RBC DISTRIBUTION WIDTH 16.5 % (11.5-14.5); RED BLOOD CELL CT 4.27 /CUMM (4.20-5.40); WHITE BLOOD CELL COUNT 17.3 /CUMM (4.8-10.8)
[2017-10-20 10:33] LABS: GRANULOCYTE % 84.7 % (42.2-75.2)
--- NOTE | 2017-10-20 10:38 | PN- Housestaff ---
Subjective Follow-up For: Asthma exacerbation History of cryptogenic organizing pneumonia; patient will be following at [facility] in early October History of fibromyalgia History of anxiety disorder History of TMJ Subjective: Patient states that she feels better, notes that her breathing is better. She has been decreased from 4 L to 3 L of oxygen. She does note that she has some muscular pain in her chest and back from coughing. She also has some inspiratory pain behind her left shoulder blade. Otherwise patient feels good and has no other complaints. Review of Systems Constitutional: Reports: no symptoms. EENTM: Reports: no symptoms. Cardiovascular: Reports: no symptoms. Respiratory: Reports: cough. Gastrointestinal: Reports: no symptoms. Genitourinary: Reports: no symptoms. Musculoskeletal: Reports: back pain, muscle pain. Objective Last 24 Hrs of Vital Signs/I&O Vital Signs Date Time Temp Pulse Resp B/P B/P Pulse O2 O2 Flow FiO2 Mean Ox Delivery Rate 10/20 0855 94 Nasal 3.0L Cannula 10/20 0800 99 Nasal 2.0L Cannula 10/20 0650 97.8 71 20 106/74 91 10/20 0000 Nasal 3.0L Cannula 10/19 2215 98.3 81 20 122/80 88 10/19 1550 97.3 71 20 110/60 92 Nasal Cannula Intake & Output 10/20 1600 10/20 0800 10/20 0000 Intake Total 480 480 Output Total Balance 480 480 Intake, Oral 480 480 Physical Exam General Appearance: Alert, Oriented X3, Cooperative, No Acute Distress Skin: No Rashes Sepsis Skin Exam (color): Normal for Ethnicity HEENT: Atraumatic, EOMI, Mucous Membr. moist/pink Neck: Supple, No JVD Cardiovascular: Regular Rate, Normal S1, Normal S2, No Murmurs Lungs: mild wheezing at lung bases Abdomen: Normal Bowel Sounds, Soft, No Tenderness Neurological: Normal Gait Extremities: No Clubbing, No Cyanosis, No Edema Current Medications: Current Medications Sig/Nathan Start time Last Medication Dose Route Stop Time Status Admin Acetaminophen 650 MG Q8P PRN 10/18 2230 AC PO Albuterol Sulfate 3 ML BID 10/19 1055 AC 10/20 INH 0835 Albuterol Sulfate 2 PUF Q4-6 PRN PRN 10/18 2130 AC INH Budesonide/ 2 PUF BID 10/18 2200 AC 10/20 Formoterol Fumarate INH 0915 Gabapentin 300 MG TID 10/18 2199 AC 10/20 PO 1349 Heparin Sodium 5,000 UNIT Q8 10/18 2199 AC 10/20 (Porcine) SC 0526 Loratadine 10 MG DAILY 10/19 09 AC 10/20 PO 0915 Methylprednisolone 40 MG Q6 10/19 0600 DC 10/20 IV 1247 Montelukast Sodium 10 MG 10/18 AC 10/19 PO 2030 Oxycodone HCl 30 MG Q4 HRS NEEDED PRN 10/18 224 AC 10/20 PO 1041 Paroxetine HCl 30 MG DAILY 10/19 09 AC 10/20 PO 0915 Prednisone 60 MG DAILY 10/21 09 AC PO Tiotropium [place] 1 PUF DAILY 10/19 899 AC 10/20 INH 0915 Trazodone HCl 150 MG QPM 10/18 2199 AC 10/19 PO 2030 Last 24 Hrs of Lab/Luke Results Last 24 Hrs of Labs/Mics: Laboratory Tests 10/20/17 0745: CBC w Diff NO MAN DIFF REQ, RBC 4.27, MCV 77.2 L, MCH 24.8 L, MCHC 32.2 L, RDW 16.5 H, MPV 8.3, Gran % 84.7 H, Lymphocytes % 11.9 L, Monocytes % 3.2, Eosinophils % 0, Basophils % 0.2, Absolute Granulocytes 14.6 H, Absolute Lymphocytes 2.1, Absolute Monocytes 0.5, Absolute Eosinophils 0, Absolute Basophils 0 Assessment/Plan Assessment: Ms. Vásquez is a 36yo F w/ PMH of fibromyalgia, asthma on nocturnal oxygen of 2 L , cryptogenic pneumonia, syncope episodes on Paxil off label use (tilt-table positive since age of 20), s/p appendectomy 2016, anxiety, TMJ with pain controlled by oxycodone, presented to ER with cc of severe difficulty breathing. Patient was discharged from [facility] a month ago, and had been doing well for 2-3 weeks, starting last week she started to have symptoms of acute bronchitis including nonproductive cough, shortness of breath, and some ongoing chills/questionable fever of 99 (patient's baseline body temperature was around 93-94), and some inspiratory bilateral shoulder blade pain, along with cold sweats. Patient was trying all her home medications including ProAir inhalers, that she try pro-air for 5 times today, and found that her oxygen desat into 82% , and subsequently presented to the ER for further evaluation. Patient was supposed to be follow-up with [facility] a few for pulmonary biopsy to further diagnose of her cryptogenic pneumonia, however her appointment was postponed to second week of October. Patient finished the last tapering of prednisone from previous admission, and is currently on prednisone 40 mg daily at the time of admission. Patient is compliant with all home medications. Patient also endorsed some ongoing tachycardia for a long time, and once she was admitted to the telemetry floor, and saw Dr. Lozano for echocardiogram and cardiac workup, however was found to be negative. On admission, Vitals: Afebrile, tachycardia/tachypnea, BP 141/77, 94% on 4 L -CBC: Mild leukocytosis 14.0 likely for use of chronic steroids, H/H 11.9/25.8, PLT 469, MCV 75.7 -BMP: Unremarkable except CO2 31, likely from asthma exacerbation -CXR: Right lower lobe infiltrate is improving, has not completely cleared yet. -EKG: Sinus tach -Interventions in ER: Nebulizer plus IV Solu-Medrol 1251 Problem list & Assessment: #Asthma exacerbation #Cryptogenic pneumonia, currently stable with improved CXR #PMH of fibromyalgia, syncope episodes, anxiety, TMJ Hospital Course: -Admit to general medicine, vitals per protocol -TRC nebs -Supplemental oxygen, currently 3 L to keep the patient at least 90%, TRC/ nebulizer as needed -WBCs have increased but this likely secondary to steroids as patient feels clinically better. -We will defer pulmonary consult as the patient has been worked up on previous admissions and is currently pursuing outpatient workup with [place]. This patient is a patient of Dr. Verdugo's. DVT prophylaxis Lovenox + ALPS Regular Diet Full Code Problem List: 1. Dyspnea 2. Cryptogenic organizing pneumonia Pain Ratin Pain Location: chest Pain Goal: Pain 4 or less Pain Plan: prn Tomorrow's Labs & Rationales: no labs
--- NOTE | 2017-10-20 11:57 | PN- Att Addend ---
Attending Addendum Attending Brief Note Patient seen and examined. Plan of care discussed with the medical team and the patient. Available lab work and radiology test reports were reviewed. Patient is feeling better compared to yesterday. She denies a any chest pain fever chills overnight. Denies any nausea vomiting or abdominal pain. She remains on oxygen . Exam: General: Patient awake alert oriented without any distress CVS: S1 plus S2 without any murmur or gallops Chest: Bilateral expiratory wheezing There is no respiratory distress. Abdomen: Soft non-tender, bowel sound present, no guarding or rebound CLIENT SERVICE SUPERVISOR: Awake alert oriented without any focal neuro deficit and follows commands appropriately Extremities: No edema; no clubbing or cyanosis noted Assessment and problem list * Asthma exacerbation- improved * History of cryptogenic organizing pneumonia; patient will be following at [facility] in early October * History of fibromyalgia * History of anxiety disorder * History of TMJ * Elevated WBC count likely from steroids patient currently stable does not exhibit any signs of infection Plan * Switched to prednisone today * Continue oxygen and taper as tolerated * Out of bed and ambulate * Avoid further radiology testing since patient will be worked up to [place] * Plan for discharge home tomorrow * No need to check labs tomorrow Current Medications Sig/Nathan Start time Last Medication Dose Route Stop Time Status Admin Acetaminophen 650 MG Q8P PRN 10/18 2230 AC PO Albuterol Sulfate 3 ML BID 10/19 1055 AC 10/20 INH 0835 Albuterol Sulfate 2 PUF Q4-6 PRN PRN 10/18 2130 AC INH Budesonide/ 2 PUF BID 10/18 2200 AC 10/20 Formoterol Fumarate INH 0915 Gabapentin 300 MG TID 10/18 2200 AC 10/20 PO 0915 Heparin Sodium 5,000 UNIT Q8 10/18 2200 AC 10/20 (Porcine) SC 0526 Loratadine 10 MG DAILY 10/19 0900 AC 10/20 PO 0915 Methylprednisolone 40 MG Q6 10/19 0600 AC 10/20 IV 0525 Montelukast Sodium 10 MG 10/18 2200 AC 10/19 PO 2030 Oxycodone HCl 30 MG Q4 HRS NEEDED PRN 10/18 2245 AC 10/20 PO 1041 Paroxetine HCl 30 MG DAILY 10/19 0900 AC 10/20 PO 0915 Tiotropium [place] 1 PUF DAILY 10/19 0900 AC 10/20 INH 0915 Trazodone HCl 150 MG QPM 10/18 2200 10/19 PO 2030 Laboratory Tests 10/20/17 0745: CBC w Diff NO MAN DIFF REQ, RBC 4.27, MCV 77.2 L, MCH 24.8 L, MCHC 32.2 L, RDW 16.5 H, MPV 8.3, Gran % 84.7 H, Lymphocytes % 11.9 L, Monocytes % 3.2, Eosinophils % 0, Basophils % 0.2, Absolute Granulocytes 14.6 H, Absolute Lymphocytes 2.1, Absolute Monocytes 0.5, Absolute Eosinophils 0, Absolute Basophils 0 10/19/17 0745: Anion Gap 9, Estimated GFR > 60, BUN/Creatinine Ratio 18.3, CBC w Diff NO MAN DIFF REQ, RBC 4.50, MCV 76.7 L, MCH 24.7 L, MCHC 32.2 L, RDW 16.6 H, MPV 7.9 , Gran % 86.2 H, Lymphocytes % 12.2 L, Monocytes % 1.1 L, Eosinophils % 0.2, Basophils % 0.3, Absolute Granulocytes 10.0 H, Absolute Lymphocytes 1.4, Absolute Monocytes 0.1, Absolute Eosinophils 0, Absolute Basophils 0 10/18/17 1928: Anion Gap 9, Estimated GFR > 60, BUN/Creatinine Ratio 13.8, Glucose 111 H, Calcium 8.5, Total Bilirubin 0.6, AST 15, ALT 25, Alkaline Phosphatase 89, Troponin I < 0.01, Total Protein 6.0 L, Albumin 3.4 L, Globulin 2.6, Albumin/ Globulin Ratio 1.3 10/18/17 1834: D-Dimer High Sensitivty 229, CBC w Diff NO MAN DIFF REQ, RBC 4.74, MCV 75.7 L, MCH 25.2 L, MCHC 33.3, RDW 16.9 H, MPV 8.2, Gran % 66.5, Lymphocytes % 21.7, Monocytes % 6.3, Eosinophils % 5.0, Basophils % 0.5, Absolute Granulocytes 8.6 H, Absolute Lymphocytes 2.8, Absolute Monocytes 0.8 H, Absolute Eosinophils 0.6 , Absolute Basophils 0.1 Vital Signs Date Time Temp Pulse Resp B/P B/P Pulse O2 O2 Flow FiO2 Mean Ox Delivery Rate 10/20 0855 94 Nasal 3.0L Cannula 10/20 0800 99 Nasal 2.0L Cannula 10/20 0650 97.8 71 20 106/74 91 10/20 0000 Nasal 3.0L Cannula 10/19 2215 98.3 81 20 122/80 88 10/19 1550 97.3 71 20 110/60 92 Nasal Cannula Intake & Output 10/20 1600 10/20 0800 10/20 0000 Intake Total 480 480 Output Total Balance 480 480 Intake, Oral 480 480
[2017-10-20 15:27] VITALS: BP 121/75
[2017-10-20 22:44] VITALS: BP 121/70
[2017-10-21 06:34] VITALS: BP 120/80
--- NOTE | 2017-10-21 10:37 | Patient Discharge Instructions ---
Discharge Instructions General Discharge Information You were seen/treated for: asthma exacerbation Special Instructions: 1. please follow up with PCP in one week 2. please follow up with Dr. Verdugo in one to two weeks 3. please take full course of antibiotics 4. please follow up with COPD (wellness/pulmonary) clinic at the instruction of Dr. Verdugo Diet Continue normal diet: Yes Activity Full Activity/No Limits: Yes Acute Coronary Syndrome Inclusion Criteria At DC or during hospital stay patient has or had the following: ACS DIAGNOSIS No Discharge Core Measures Meds if any: Prescribed or Continued at Discharge Meds if any: NOT Prescribed or Continued at Discharge Congestive Heart Failure Inclusion Criteria At DC or during hospital stay patient has or had the following: CHF DIAGNOSIS No Discharge Core Measures Meds if any: Prescribed or Continued at Discharge Meds if any: NOT Prescribed or Continued at Discharge Cerebrovascular accident Inclusion Criteria At DC or during hospital stay patient has or had the following: CVA/TIA Diagnosis No Discharge Core Measures Meds if any: Prescribed or Continued at Discharge Meds if any: NOT Prescribed or Continued at Discharge Venous thromboembolism Inclusion Criteria VTE Diagnosis No VTE Type NONE VTE Confirmed by (Test) NONE Discharge Core Measures - Per Current guidelines, there needs to be overlap - treatment for the first 5 days of Warfarin therapy. - If discharged on Warfarin prior to 5 days of - overlap therapy, the patient will need to be - assessed for post discharge needs including - *Post discharge parental anticoagulation - *Warfarin and/or parental anticoagulation education - *Follow up date to check INR post discharge At least 5 days overlap therapy as Inpatient No Meds if any: Prescribed or Continued at Discharge Note: Overlap Therapy is Warfarin and Anticoagulant Meds if any: NOT Prescribed or Continued at Discharge
[2017-10-21] MEDS ORDERED: PREDNISONE10 M2 PO ×3 (10:47→11:44)
--- NOTE | 2017-10-21 13:20 | PN- Att Addend ---
Attending Addendum Attending Brief Note Patient seen and examined. Resting comfortably and not in any acute distress. No issues overnight reported by nursing staff. She reports feeling better compared to presentation. She has had recurrent hospitalizations for her respiratory condition. She reports doing well for a few weeks at home before having another flareup requiring hospitalization. She currently follows with doctors at another facility what he is looking to transfer her care back to the [facility]. She is also willing to follow-up in our COPD clinic. On examination she is maintaining saturation on 2 L. She uses oxygen intermittently at home on at nighttime. She has adequate entry bilaterally with no added sounds. She is medically stable to be discharged home. She will be discharged on a prednisone taper and will be tapered down to her baseline 40 mg daily. She will follow-up with the COPD clinic and with circuit rider Quang Verdugo MD in the outpatient setting. He has been advised to return to the ER should her symptoms worsen.
--- NOTE | 2017-10-21 13:22 | PN- Housestaff ---
Subjective Follow-up For: Asthma exacerbation History of cryptogenic organizing pneumonia; patient will be following at [facility] in early October History of fibromyalgia History of anxiety disorder History of TMJ Subjective: The patient states that she feels good today. She continues to experience very mild wheezing. No other complaints. Review of Systems Constitutional: Reports: no symptoms. EENTM: Reports: no symptoms. Cardiovascular: Reports: no symptoms. Respiratory: Reports: wheezing. Gastrointestinal: Reports: no symptoms. Genitourinary: Reports: no symptoms. Musculoskeletal: Reports: no symptoms. Skin: Reports: no symptoms. Objective Last 24 Hrs of Vital Signs/I&O Vital Signs Date Time Temp Pulse Resp B/P B/P Pulse O2 O2 Flow FiO2 Mean Ox Delivery Rate 10/21 1419 98.0 76 20 116/76 97 Room Air 10/21 0800 95 Nasal 2.0L Cannula 10/21 0634 97.6 71 20 120/80 94 Nasal 2.0L Cannula 10/21 0000 92 Nasal 2.0L Cannula 10/20 2300 92 Nasal 2.0L Cannula 10/20 2244 97.7 94 20 121/70 86 Nasal 4.0L Cannula 10/20 1944 96 Nasal 4.0L Cannula Intake & Output 10/21 1600 10/21 0800 10/21 0000 Intake Total 600 490 610 Output Total 600 Balance 600 490 10 Intake, IV 10 10 Intake, Oral 600 480 600 Number 0 Bowel Movements Output, Urine 600 Physical Exam General Appearance: Alert, Oriented X3, Cooperative, No Acute Distress Skin: No Rashes, No Breakdown, No Significant Lesion Skin Temp/Moisture Exam: Warm/Dry Sepsis Skin Exam (color): Normal for Ethnicity Cardiovascular: Regular Rate, Normal S1, Normal S2, No Murmurs Lungs: Clear to Auscultation Abdomen: Normal Bowel Sounds, Soft, No Tenderness Current Medications: Current Medications Sig/Nathan Start time Last Medication Dose Route Stop Time Status Admin Acetaminophen 650 MG Q8P PRN 10/18 2230 DCD PO Albuterol Sulfate 3 ML BID 10/19 1055 DCD 10/20 INH 1941 Albuterol Sulfate 2 PUF Q4-6 PRN PRN 10/180 DCD INH Budesonide/ 2 PUF BID 10/180 DCD 10/21 Formoterol Fumarate INH 0953 Gabapentin 300 MG TID 10/180 DCD 10/21 PO 1428 Heparin Sodium 5,000 UNIT Q8 10/18 2199 DCD 10/20 (Porcine) SC 0526 Loratadine 10 MG DAILY 10/19 899 DCD 10/21 PO 0953 Montelukast Sodium 10 MG 10/18 DCD 10/20 PO 2104 Oxycodone HCl 30 MG Q4 HRS NEEDED PRN 10/18 2244 DCD 10/21 PO 1428 Paroxetine HCl 30 MG DAILY 10/19 899 DCD 10/21 PO 0953 Prednisone 60 MG DAILY 10/21 899 DCD 10/21 PO 0953 Tiotropium [place] 1 PUF DAILY 10/19 899 DCD 10/21 INH 0953 Trazodone HCl 150 MG QPM 10/18 2199 DCD 10/20 PO 2006 Assessment/Plan Assessment: Ms. Vásquez is a 36yo F w/ PMH of fibromyalgia, asthma on nocturnal oxygen of 2 L , cryptogenic pneumonia, syncope episodes on Paxil off label use (tilt-table positive since age of 20), s/p appendectomy 2015, anxiety, TMJ with pain controlled by oxycodone, presented to ER with cc of severe difficulty breathing. Patient was discharged from [facility] a month ago, and had been doing well for 2-3 weeks, starting last week she started to have symptoms of acute bronchitis including nonproductive cough, shortness of breath, and some ongoing chills/questionable fever of 99 (patient's baseline body temperature was around 93-94), and some inspiratory bilateral shoulder blade pain, along with cold sweats. Patient was trying all her home medications including ProAir inhalers, that she try pro-air for 5 times today, and found that her oxygen desat into 82% , and subsequently presented to the ER for further evaluation. Patient was supposed to be follow-up with [facility] a few for pulmonary biopsy to further diagnose of her cryptogenic pneumonia, however her appointment was postponed to second week of October. Patient finished the last tapering of prednisone from previous admission, and is currently on prednisone 40 mg daily at the time of admission. Patient is compliant with all home medications. Patient also endorsed some ongoing tachycardia for a long time, and once she was admitted to the telemetry floor, and saw Dr. Lozano for echocardiogram and cardiac workup, however was found to be negative. On admission, Vitals: Afebrile, tachycardia/tachypnea, BP 141/77, 94% on 4 L -CBC: Mild leukocytosis 14.0 likely for use of chronic steroids, H/H 11.9/25.8, PLT 469, MCV 75.7 -BMP: Unremarkable except CO2 31, likely from asthma exacerbation -CXR: Right lower lobe infiltrate is improving, has not completely cleared yet. -EKG: Sinus tach -Interventions in ER: Nebulizer plus IV Solu-Medrol 1251 Problem list & Assessment: #Asthma exacerbation #Cryptogenic pneumonia, currently stable with improved CXR #PMH of fibromyalgia, syncope episodes, anxiety, TMJ Plan: -Admitted to general medicine, vitals per protocol -TRC nebs -Supplemental oxygen, currently 1-2 L to keep the patient at least 90%, TRC/ nebulizer as needed taper of prednisone, 3 day taper 50 mg prednisone, followed by continuation of her baseline 40 mg prednisone. -Ambulatory O2 sats are 93-94% on room air. -She will follow-up with Dr. Verdugo and also with the wellness clinic for her cryptogenic pneumonia -Patient states that she sometimes experiences feelings of food bolus in her throat. We have consulted with speech and swallow, she has passed swallow evaluation and is set to be discharged home. DVT prophylaxis Lovenox + ALPS Regular Diet Full Code Problem List: 1. Dyspnea 2. Cryptogenic organizing pneumonia Pain Ratin Pain Location: na Pain Goal: Remain pain free Pain Plan: na Tomorrow's Labs & Rationales: na
[2017-10-21 14:19] VITALS: BP 116/76
== END 2017-10-21 15:00 | DRG 189 ==
LOC: ERH 18:26 → ERHI 20:05 → 2NB 20:05 → ENRESERV 21:03 → ENTRNSPT 21:31 → EDTRNSPTSTS 21:39 → 2NB 22:03 → CMPTRNSPT 22:05 → CANRESERV 23:41 → ENRESERV 23:41 → ENPENDDIS 10-21 11:54 → 2NB 10-21 15:00
PROVIDERS: Emergency Medicine; Internal Medicine Endocrinology, Diabetes & Metabolism; Student in an Organized Health Care Education/Training Program
DX: J96.21 Acute and chronic respiratory failure with hypoxia (principal); J45.51 Severe persistent asthma with (acute) exacerbation; J84.116 Cryptogenic organizing pneumonia; M79.7 Fibromyalgia; M26.609 Unspecified temporomandibular joint disorder, unspecified side; D72.1 Eosinophilia; D50.9 Iron deficiency anemia, unspecified; F41.9 Anxiety disorder, unspecified; D72.828 Other elevated white blood cell count; T38.0X5A Adverse effect of glucocorticoids and synthetic analogues, initial encounter; E66.8 Other obesity; Z68.34 Body mass index [BMI] 34.0-34.9, adult; Z90.49 Acquired absence of other specified parts of digestive tract
CPT/HCPCS: 2NBSP; 36415; 36592; 71045; 82436; 93005; 93010; 96361; 96374; 99291; J1644; J2920; J2930; J3490; J7040

== ENCOUNTER 2017-11-11 11:00 | Inpatient (IN) | payer OTHER, MEDICARE ==
[~2017-11-11] VITALS: Ht 157.5 cm; Wt 79.4 kg
--- NOTE | 2017-11-11 11:10 | ED DYSPNEA/ASTHMA COMPLAINT ---
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 Source: patient Exam Limitations: no limitations Vital Signs & Intake/Output Vital Signs & Intake/Output Vital Signs Date Time Temp Pulse Resp B/P B/P Pulse O2 O2 Flow FiO2 Mean Ox Delivery Rate 11/11 1300 98.5 101 20 111/59 93 Nasal 2.0L Cannula 11/11 1140 96 Nasal 4.0L Cannula 11/11 1102 97.7 120 24 110/76 86 Room Air Allergies Coded Allergies: No Known Allergies (06/19/17) Reconcile Medications Albuterol Sulfate (Proair Hfa) 90 MCG HFA.AER.AD 2 PUF INH Q4-6 PRN PRN RESPIRATORY . Budesonide/Formoterol Fumarate (Symbicort 160-4.5 Mcg Inhaler) 160 MCG-4.5 MCG/ ACTUATION HFA.AER.AD 2 PUF INH BID SOB . Gabapentin (Neurontin) 300 MG CAPSULE 1 CAP PO TID NERVE PAIN (Reported) Hydroxyzine HCl (hydrOXYzine HCl) 10 MG TABLET 10 MG PO DAILY PRN FOR ALLERGY (Reported) Loratadine 10 MG TABLET 10 MG PO DAILY ASTHMA . Montelukast Sodium 10 MG TABLET 10 MG PO AT BEDTIME asthma . Oxycodone HCl 30 MG TABLET 1 TAB PO DAILY PRN PAIN (Reported) Paroxetine HCl 30 MG TABLET 1 TAB PO DAILY MENTAL HEALTH (Reported) Prednisone 20 MG TABLET 1 TAB PO DAILY BREATHING PROBLEMS (Reported) Tiotropium [place] (Spiriva) 18 MCG CAP.W.DEV 1 CAP INH DAILY ASTHMA . Trazodone HCl 50 MG TABLET 3 TAB PO QPM SLEEP (Reported) Triage Note: PT AMBULATED TO TRIAGE SOB 02 SAT 86 ON RA HR 126 PT WITH HX OF ASTHMA STATES SHE JUST USED HER INHALER WITH NO RELIED. PT HAS AUABLE WHEEZING IN TRIAGE. Triage Nurses Notes Reviewed? 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 Patient states that prior to arrival she was 77% room air Past History Travel History Traveled to [place] past 21 day No Medical History Any Pertinent Medical History? 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 FH: diabetes mellitus UNCLE-MATERNAL (BOOP). GRANDMOTHER-MATERNAL (CHF). Relation not specified for: FH: CAD (coronary artery disease) FH: HTN (hypertension) FH: ovarian cancer FH: uterine cancer Hx Contributory? No Review of Systems Review of Systems Constitutional: Reports: see HPI. EENTM: Reports: no symptoms. Respiratory: Reports: see HPI, cough, short of breath, wheezing. Cardiovascular: Reports: no symptoms. GI: Reports: no symptoms. Genitourinary: Reports: no symptoms. Musculoskeletal: Reports: no symptoms. Skin: Reports: no symptoms. Neurological/Psychological: Reports: no symptoms. Hematologic/Endocrine: Reports: no symptoms. Immunologic/Allergic: Reports: no symptoms. All Other Systems: Reviewed and Negative Physical Exam Physical Exam General Appearance: mild distress Head: atraumatic Eyes: Bilateral: normal appearance. Ears, Nose, Throat: normal pharynx, normal ENT inspection Respiratory: chest non-tender, wheezing, respiratory distress Cardiovascular: tachycardia Gastrointestinal: normal bowel sounds, soft, non-tender Neurologic/Psych: no motor/sensory deficits, awake, alert Skin: intact, normal color, warm/dry Core Measures ACS in differential dx? No CVA/TIA Diagnosis No Sepsis Present: No Sepsis Focused Exam Completed? No Progress Differential Diagnosis: asthma, AMI, bronchitis, costochondritis, CHF, COPD, musculoskeletal pain, pericarditis, pulmonary embolism, pneumonia, pneumothorax, unstable angina Plan of Care: Orders Procedure Date/time Status Regular Diet 11/11 D Active Misc Message 11/11 1331 Active ED Holding Orders 11/11 1331 Active Vital Signs 11/11 1331 Active Code Status 11/[address] in observation 11/11 1326 Active LOWER RESPIRATORY CULTURE 11/11 1321 Active EKG 11/11 1247 Active HUMAN BETA HCG SCREEN 11/11 1219 Complete TROPONIN LEVEL 11/11 1142 Complete COMPREHENSIVE METABOLIC PANEL 11/11 1142 Complete CBC WITHOUT DIFFERENTIAL 11/11 1142 Complete Current Medications Sig/Nathan Start time Last Medication Dose Stop Time Status Admin Gabapentin 300 MG TID 11/11 1400 AC 11/11 (Neurontin) 1428 Oxycodone HCl 30 MG DAILY PRN 11/11 1245 UNVr (Roxicodone) Laboratory Tests 11/11/17 1219: Anion Gap 9, Estimated GFR > 60, BUN/Creatinine Ratio 12.5, Glucose 112 H, Calcium 9.1, Total Bilirubin 0.6, AST 18, ALT 17, Alkaline Phosphatase 90, Troponin I < 0.01, Total Protein 6.5, Albumin 3.5, Globulin 3.0, Albumin/ Globulin Ratio 1.2, Total Beta HCG NEGATIVE, CBC w Diff MAN DIFF ORDERED, RBC 4.53, MCV 76.3 L, MCH 24.5 L, MCHC 32.1 L, RDW 16.5 H, MPV 8.2, Gran % 51.3, Lymphocytes % 20.7, Monocytes % 5.0, Eosinophils % 22.6 H, Basophils % 0.4, Absolute Granulocytes 5.7, Absolute Lymphocytes 2.3, Absolute Monocytes 0.6, Absolute Eosinophils 2.5, Absolute Basophils 0, Platelet Estimate VERIFIED BY SMEAR, Polychromasia , Hypochromic-Microcytic 1+, Anisocytosis 1+, Microcytic Cells 1+, Stomatocytes 1+ 11/11/17 1158: Total Beta HCG Cancelled Microbiology 11/11 1321 LOWER RESP: Respiratory Culture - ORD 11/11 1321 LOWER RESP: Gram Stain - ORD Patient on initial examination was noted to be in bronchospasms and coughing patient was given 6 L of oxygen supplementation and had 98% oxygen saturation, patient does arrive at 86% I discussed patient's presentation with Dr. Verdugo was aware of patient's admission states he saw patient yesterday and advised patient to presents emergency room yesterday patient also was advised to receive blood work and chest x-ray and nebulizer and steroids by him and I will call back if no improvement and with the results Patient on arrival was 86% room air After nebulizer and steroids patient did have mild improvement of symptoms I discussed chest x-ray findings and patient's clinical presentation after nebulizer was administered with Dr. Verdugo who advised patient should stay in the hospital, case management was aware of patient's presentation in emergency room and advised at this time placement in observation Discussed patient's disposition who agrees and has no questions Diagnostic Imaging: Viewed by Me: Radiology Read. Radiology Impression: acute abnormality Initial ED EKG: SINUS TACHYCARDIA 101 BPM Comments: PATIENT: TERESA RODRIGEZ PRESENT AGE: 37 PATIENT ACCOUNT NO: [id number] : 81 LOCATION: ER ORDERING PHYSICIAN: Binh COSBY SERVICE DATE: 11/11/17 EXAM TYPE: RAD - XRY-CHEST XRAY, TWO VIEWS EXAMINATION: XR CHEST CLINICAL INFORMATION: SOB and cough. COMPARISON: Chest 10/18/2017 TECHNIQUE: 2 views of the chest were obtained. FINDINGS: The lungs are well-expanded with patchy density seen in the left midlung region question lingular infiltrate/atelectasis or fissural thickening. Rest of lungs are clear. The heart size and pulmonary vascularity is normal. No gross bony abnormality seen. IMPRESSION: Patchy horizontal opacity left midlung question infiltrate versus atelectasis. It is new since 10/18/2017 exam. DICTATED BY: Winston Geller MD DATE/TIME DICTATED:11/11/171235 TRAVELER CHANGER:NABOR DATE/TIME TRANSCRIBED:11/11/171235 CONFIDENTIAL, DO NOT COPY WITHOUT Departure Departure Disposition: STILL A PATIENT Condition: Stable Clinical Impression Primary Impression: Asthma exacerbation Secondary Impressions: Bronchitis Referrals: James CHAPARRO,Socrates Mehta (PCP/Family) Departure Forms: Customer Survey General Discharge Information Observation Note Spoke With: Simi CHAPARRO,Stephan Physician Advisor Notified: MIRYAM CHAPARRO,VANE [address] Patient In: Non-ED OBS Care Area Rationale for Observation: My rational for observation is as follows [patient requires IV Solu-Medrol IV antibiotics pulmonary consultation case management consultation and repeat labs sputum culture pending]. Critical Care Note Critical Care Note Critical Care Time: 30-74 min
[2017-11-11] MEDS ORDERED: PREDNISONE20 M1 PO (12:04)
[2017-11-11 12:41] LABS: ABSOLUTE BASOPHIL COUNT 0 /CUMM (0.0-0.2); ABSOLUTE EOSINOPHIL COUNT 2.5 /CUMM (0.0-0.7); ABSOLUTE GRANULOCYTE CT 5.7 /CUMM (1.4-6.5); ABSOLUTE LYMPH COUNT 2.3 /CUMM (1.2-3.4); ABSOLUTE MONOCYTE COUNT 0.6 /CUMM (0.10-0.60); BASOPHIL % 0.4 % (0.0-2.0); EOSINOPHIL % 22.6 % (0-5); GRANULOCYTE % 51.3 % (42.2-75.2); HEMATOCRIT 34.6 % (37-47); MEAN CORPUSCULAR HGB 24.5 PG (27.0-31.0); MEAN CORPUSCULAR HGB CONC 32.1 G/DL (33.0-37.0); MEAN CORPUSCULAR VOLUME 76.3 FL (81.0-99.0); MEAN PLATELET VOLUME 8.2 FL (7.4-10.4); PLATELET COUNT 378 /CUMM (130-400); RBC DISTRIBUTION WIDTH 16.5 % (11.5-14.5); RED BLOOD CELL CT 4.53 /CUMM (4.20-5.40); WHITE BLOOD CELL COUNT 11.1 /CUMM (4.8-10.8)
--- NOTE | 2017-11-11 12:41 | RADIOLOGY REPORT ---
EXAMINATION: XR CHEST CLINICAL INFORMATION: SOB and cough. COMPARISON: Chest 10/18/2017 TECHNIQUE: 2 views of the chest were obtained. FINDINGS: The lungs are well-expanded with patchy density seen in the left midlung region question lingular infiltrate/atelectasis or fissural thickening. Rest of lungs are clear. The heart size and pulmonary vascularity is normal. No gross bony abnormality seen. IMPRESSION: Patchy horizontal opacity left midlung question infiltrate versus atelectasis. It is new since 10/18/2017 exam.
--- NOTE | 2017-11-11 15:48 | History & Physical ---
Jayson CHAPARRO,[facility] 11/11/17 1547: General Information and HPI MD Statement: I have seen and personally examined TERESA RODRIGEZ and documented this H&P. The patient is a 37 year old F who presented with a patient stated chief complaint of [Hypoxia]. Source of Information: patient Exam Limitations: no limitations History of Present Illness: Ms. Rodrigez is a 36yo F w/ PMH of fibromyalgia, asthma on nocturnal oxygen of 2 L , cryptogenic pneumonia, syncope episodes on Paxil off label use, anxiety, TMJ pain controlled by oxycodone, presented to ER with chief complaint of hypoxia and difficulty breathing. She was recently discharged from [facility] couple of weeks ago after being treated for asthma exacerbation. She has been doing okay since then when on she started having difficulty breathing. This morning she woke up with trouble breathing, her O2 sats were 77% on room air. She tried the breathing treatments and her inhalers without any relief. She spoke with Dr. Verdugo over the phone this morning, and because of her breathing and audible wheezing she advised her to go to the ER if her breathing gets worse. She also reports cough without any significant sputum production. She denies any fever/ chills. Endorses muscular chest pain with cough. She also vomited twice today and denies any abdominal pain, diarrhea/constipation, recent travel or sick contacts. Allergies/Medications Allergies: Coded Allergies: No Known Allergies (06/19/17) Past History Travel History Traveled to [place] past 21 day No Medical History Neurological: FIBROMYALGIA EENT: TMJ arthritis s/p jaw surgery at [facility] 2010 ARTHROCENTESIS 2014 (DRAINED/ FLUSHED JAWS) Cardiovascular: syncope (vasovagal(has had cardio eval)) Respiratory: asthma, bronchitis, pneumonia, CRYPTOGENIC ORGANIZING PNA Gastrointestinal: constipation (IBS), irritable bowel syndrome Hepatic: NONE Renal: NONE Musculoskeletal: fibromyalgia Psychiatric: anxiety Endocrine: NONE Blood Disorders: NONE Cancer(s): 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 FH: diabetes mellitus UNCLE-MATERNAL (BOOP). GRANDMOTHER-MATERNAL (CHF). Relation not specified for: FH: CAD (coronary artery disease) FH: HTN (hypertension) FH: ovarian cancer FH: uterine cancer Psychosocial History Who Do You Live With? parent Services at Home: None Primary Language: Gambian ETOH Use: denies use Illicit Drug Use: denies illicit drug use Functional Ability ADLs Independent: dressing, eating, toileting, bathing. Ambulation: independent IADLs Independent: shopping, housework, finances, food prep, telephone, transportation , medication admin. Review of Systems Review of Systems Constitutional: Reports: no symptoms. EENTM: Reports: no symptoms. Cardiovascular: Reports: chest pain. Respiratory: Reports: cough, short of breath. GI: Reports: no symptoms. Genitourinary: Reports: no symptoms. Musculoskeletal: Reports: no symptoms. Skin: Reports: no symptoms. Neurological/Psychological: Reports: no symptoms. Hematologic/Endocrine: Reports: no symptoms. Immunologic/Allergic: Reports: no symptoms. All Other Systems: Reviewed and Negative Exam & Diagnostic Data Last 24 Hrs of Vital Signs/I&O Vital Signs Date Time Temp Pulse Resp B/P B/P Pulse O2 O2 Flow FiO2 Mean Ox Delivery Rate 11/11 1739 94 Nasal 2.0L Cannula 11/11 1739 98.1 75 18 110/74 94 Nasal 2.0L Cannula 11/11 1300 98.5 101 20 111/59 93 Nasal 2.0L Cannula 11/11 1140 96 Nasal 4.0L Cannula 11/11 1102 97.7 120 24 110/76 86 Room Air Intake & Output 11/11 1600 11/11 0800 11/11 0000 Intake Total Output Total Balance Patient 175 lb Weight Weight Reported by Patient Measurement Method Physical Exam General Appearance Alert, Oriented X3, Cooperative, No Acute Distress Skin No Rashes, No Breakdown Cardiovascular Regular Rate, Normal S1, Normal S2 Lungs Bilateral wheezing, Abdomen Normal Bowel Sounds, Soft, No Tenderness Extremities No Clubbing, No Cyanosis, No Edema Last 24 Hrs of Labs/Luke: Laboratory Tests 11/11/17 1219: Anion Gap 9, Estimated GFR > 60, BUN/Creatinine Ratio 12.5, Glucose 112 H, Calcium 9.1, Total Bilirubin 0.6, AST 18, ALT 17, Alkaline Phosphatase 90, Troponin I < 0.01, Total Protein 6.5, Albumin 3.5, Globulin 3.0, Albumin/ Globulin Ratio 1.2, Total Beta HCG NEGATIVE, CBC w Diff MAN DIFF ORDERED, RBC 4.53, MCV 76.3 L, MCH 24.5 L, MCHC 32.1 L, RDW 16.5 H, MPV 8.2, Gran % 51.3, Lymphocytes % 20.7, Monocytes % 5.0, Eosinophils % 22.6 H, Basophils % 0.4, Absolute Granulocytes 5.7, Absolute Lymphocytes 2.3, Absolute Monocytes 0.6, Absolute Eosinophils 2.5, Absolute Basophils 0, Platelet Estimate VERIFIED BY SMEAR, Polychromasia , Hypochromic-Microcytic 1+, Anisocytosis 1+, Microcytic Cells 1+, Stomatocytes 1+ 11/11/17 1158: Total Beta HCG Cancelled Microbiology 11/11 1321 LOWER RESP: Respiratory Culture - ORD 11/11 1321 LOWER RESP: Gram Stain - ORD Diagnostic Data CXR Results FINDINGS: The lungs are well-expanded with patchy density seen in the left midlung region question lingular infiltrate/atelectasis or fissural thickening. Rest of lungs are clear. The heart size and pulmonary vascularity is normal. No gross bony abnormality seen. IMPRESSION: Patchy horizontal opacity left midlung question infiltrate versus atelectasis. It is new since 10/18/2017 exam. Assessment/Plan Assessment: Ms. Rodrigez is a 36yo F w/ PMH of fibromyalgia, asthma on nocturnal oxygen of 2 L , cryptogenic pneumonia, syncope episodes on Paxil off label use, anxiety, TMJ pain controlled by oxycodone, presented to ER with chief complaint of hypoxia and difficulty breathing. Problem List; 1. Asthma Exacerbation 2. ?? 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 Chronic Medical Conditions - We will observe the patient on general medicine floor for 24-48 hours. - Patient will receive 1 dose of IV Solu-Medrol in the ER. Will continue. - She was also given 1 dose of ceftriaxone and azithromycin, will continue for now. We'll discuss with pulmonology in the morning regarding continuing antibiotics. - Pulmonology Consultation in am. - Continue supplemental oxygen - TRC nebs - Continue home medications. DVT prophylaxis; subcutaneous Lovenox and Alps Patient is full code. As Ranked By This Provider Problem List: 1. Asthma exacerbation Core Measures/Misc (02/09) Acute Coronary Syndrome ACS Diagnosis: No Congestive Heart Failure Congestive Heart Failure Diagnosis No Cerebrovascular Accident CVA/TIA Diagnosis: No VTE (View Protocol) VTE Risk Factors Acute Medical Illness No Mechanical VTE Prophylaxis d/t N/A MechProphylax Ordered No VTE Pharm Prophylaxis d/t NA PharmProphylax ordered Sepsis (View protocol) Sepsis Present: No If YES complete Sepsis Event Note If YES complete Sepsis Event Note Carson CHAPARRO,[facility] 11/11/17 7735: General Information and HPI Allergies/Medications Home Med list Albuterol Sulfate (Proair Hfa) 90 MCG HFA.AER.AD 2 PUF INH Q4-6 PRN PRN RESPIRATORY . Budesonide/Formoterol Fumarate (Symbicort 160-4.5 Mcg Inhaler) 160 MCG-4.5 MCG/ ACTUATION HFA.AER.AD 2 PUF INH BID SOB . Gabapentin (Neurontin) 300 MG CAPSULE 1 CAP PO TID NERVE PAIN (Reported) Loratadine 10 MG TABLET 10 MG PO DAILY ASTHMA . Montelukast Sodium 10 MG TABLET 10 MG PO AT BEDTIME asthma . Oxycodone HCl 30 MG TABLET 1 TAB PO DAILY PRN PAIN (Reported) Paroxetine HCl 30 MG TABLET 1 TAB PO DAILY MENTAL HEALTH (Reported) Prednisone 20 MG TABLET 1 TAB PO DAILY BREATHING PROBLEMS (Reported) Tiotropium [place] (Spiriva) 18 MCG CAP.W.DEV 1 CAP INH DAILY ASTHMA . Trazodone HCl 50 MG TABLET 3 TAB PO QPM SLEEP (Reported) Core Measures/Misc (02/09) Sepsis (View protocol) If YES complete Sepsis Event Note If YES complete Sepsis Event Note Resident Review Statement Resident Statement: examined this patient, discussed with regulatory affairs intern, agreed with regulatory affairs intern Other Findings: This is a 37-year-old female with past medical history significant for fibromyalgia, cryptogenic organizing pneumonia, anxiety, TMJ, syncope, who comes in for chief complaint of shortness of breath and wheezing. Notably, she was discharged about 2.5 weeks ago for similar chief complaints. Patient spoke with her diagnostics tech Dr. Verdugo yesterday. Apparently she was feeling more short of breath than usual. This a.m. when she woke up she stated that she felt short of breath and her pulse ox was about 77% on room air. She self-administered her nebulizers and routine medications but the highest her sats red rubber between 84-85% on room air. Given persistently low saturation she came to ED for further evaluation. She states that the last few days she's noticed worsening cough, and wheezing accompanied by a choking sensation. She states that these symptoms occur frequently at least once or twice a month and that this feels likethis is her "usual exacerbation." She denies any feve or productive cough. She does endorse nausea, positive vomiting, frequent headache, palpitations, anxiety, cough, wheezing, and shortness of breath. In the ED she was noted to be saturating around 86% on room air. Vitals: 97.7, heart rate 101-120, respiratory rate 20-24, blood pressure 111/59 to 110/76, saturating between 86 and 93% Physical exam HEENT: Pupils equal and reactive. EOMI Cardiovascular: Nml s1/s2; no murmurs Skin: no erythema, rash or wounds present. Respiratory: Diffuse wheezing and decreased air entry bilaterally. GI: BSX4, No tenderness on palpation. EXT: No edema Laboratory workup: White count 11.1, hemoglobin 11.1, hematocrit 34.6, platelet 378. BEP bicarb 35. Glucose 112. Normal LFT. Negative troponin. Negative beta hCG. X-ray: Shows patchy opacities in left midlung, infiltrate versus atelectasis. Assessment: This is a 37-year-old female past medical history significant for fibromyalgia, cryptogenic organizing pneumonia, syncope, anxiety, TMJ, who comes in for chief complaint of shortness of breath. Given that she is on chronic steroid therapy for her cryptogenic organizing pneumonia, her white count of 11.1 and lack of fever are not helpful markers of infection. She does have patchy opacities in her long but given history of COPD it is difficult to differentiate infiltrate versus atelectasis. After nebulization patient states she feels much better. At this time will treat patient for asthma exacerbation versus acute infectious process such as bronchitis or pneumonia. Plan: Shortness of breath: * O2 for sats above 92% * TRC * Continue Symbicort * Continue montelukast * Continue ipratropium * She got 1 dose of ceftriaxone and azithromycin in the ED. Reevaluate in a.m. for continued antibiotics * Solu-Medrol * LRC * Appreciate Pulm recs Cryptogenic organizing pneumonia: * Patient received 125 of IV Solu-Medrol in ED. 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 Patient is comfortable, speaking in full sentences, but does appear out of breath at times. Plan: Observation in general medicine, Solumedrol, Ceftriaxone, Azithromycin, sputum culture, pulmonary consult, nebulizer treatments, continue home medications, DVT PPx.
[2017-11-11 17:39] VITALS: BP 110/74
[2017-11-11 21:50] VITALS: BP 110/74
[2017-11-12 07:07] VITALS: BP 116/66
--- NOTE | 2017-11-12 07:12 | PN- Housestaff ---
Subjective Follow-up For: Asthma exacerbation Cryptogenic organizing pneumonia Subjective: Patient said she was able to sleep last night, because of improvement in her breathing. She has a dry cough but feels congested and is not bringing up much phlegm. Denies any fever/chills Review of Systems Constitutional: Reports: no symptoms. EENTM: Reports: no symptoms. Cardiovascular: Reports: no symptoms. Respiratory: Reports: cough, short of breath. Gastrointestinal: Reports: no symptoms. Genitourinary: Reports: no symptoms. Musculoskeletal: Reports: no symptoms. Skin: Reports: no symptoms. Neurological/Psychological: Reports: no symptoms. Hematologic/Endocrine: Reports: no symptoms. Immunologic/Allergic: Reports: no symptoms. Objective Last 24 Hrs of Vital Signs/I&O Vital Signs Date Time Temp Pulse Resp B/P B/P Pulse O2 O2 Flow FiO2 Mean Ox Delivery Rate 11/12 1419 97.9 82 18 112/60 96 Nasal 2.5L Cannula 11/12 1029 91 Nasal 2.5L Cannula 11/12 0800 93 Nasal 2.5L Cannula 11/12 0707 98.2 60 18 116/66 92 06 0000 93 Nasal 2.5L Cannula 11/11 2150 98.1 83 18 110/74 93 Nasal 2.5L Cannula 11/11 2050 Nasal 2.5L Cannula 11/11 1739 94 Nasal 2.0L Cannula 11/11 1739 98.1 75 18 110/74 94 Nasal 2.0L Cannula Intake & Output 11/12 1600 11/12 0800 11/12 0000 Intake Total 480 800 Output Total Balance 480 800 Intake, Oral 480 800 Patient 175 lb Weight Physical Exam General Appearance: Alert, Oriented X3, Cooperative, No Acute Distress Skin: No Rashes, No Breakdown Cardiovascular: Regular Rate, Normal S1, Normal S2 Lungs: wheezing on bilateral lung vargas Abdomen: Normal Bowel Sounds, Soft, No Tenderness Extremities: No Clubbing, No Cyanosis, No Edema Current Medications: Current Medications Sig/Nathan Start time Last Medication Dose Route Stop Time Status Admin Acetaminophen 650 MG Q6P PRN 11/11 1615 AC PO Albuterol Sulfate 3 ML BID 11/11 2100 AC 11/12 INH 1025 Azithromycin 500 MG Q24H 11/12 1400 CAN Sodium Chloride 250 ML IV Azithromycin 500 MG ONCE ONE 11/11 1330 DC 11/11 Sodium Chloride 250 ML IV 11/11 1429 1428 Benzonatate 100 MG TID PRN 11/12 1000 AC 11/12 PO 1208 Budesonide/ 2 PUF BID 11/11 2100 AC 11/12 Formoterol Fumarate INH 0927 Ceftriaxone Sodium 1,000 MG Q24H 11/12 1400 CAN IV Enoxaparin Sodium 40 MG DAILY@1600 11/11 1607 AC 11/11 SC 2018 Gabapentin 100 MG Q8P PRN 11/11 2115 AC PO Gabapentin 300 MG TID 11/11 2100 AC 11/12 PO 0927 Gabapentin 0 .STK-MED ONE 11/11 1459 DC PO Gabapentin 300 MG TID 11/11 1400 DC 11/11 PO 1428 Guaifenesin 10 ML Q4P PRN 11/12 1000 AC PO Hydroxyzine HCl 10 MG DAILY NEEDED PRN 11/11 1615 DC PO Loratadine 10 MG DAILY 11/11 1612 AC 11/12 PO 0927 Methylprednisolone 40 MG Q8 11/12 0800 AC 11/12 IV 0927 Montelukast Sodium 10 MG AT BEDTIME 11/11 2100 AC 11/11 PO 2018 Morphine Sulfate 2 MG Q4P PRN 11/11 1615 DC IV Oxycodone HCl 30 MG Q4 HRS NEEDED PRN 11/11 2115 AC 11/12 PO 0939 Oxycodone HCl 30 MG Q6PRN PRN 11/11 2045 DC PO Oxycodone HCl 5 MG Q6P PRN 11/11 1615 AC PO Oxycodone HCl 30 MG DAILY NEEDED PRN 11/11 1245 DC 11/11 PO 1830 Patient Medication 1 ED ONE ONE 11/12 1200 DC Teaching ED 11/12 1201 Trazodone HCl 150 MG QPM 11/11 2100 AC 11/11 PO 2018 Trimethoprim/ 1 TAB DAILY 11/12 1402 AC Sulfamethoxazole PO Last 24 Hrs of Lab/Luke Results Last 24 Hrs of Labs/Mics: Laboratory Tests 11/12/17 0640: Anion Gap 10, Estimated GFR > 60, BUN/Creatinine Ratio 16.7, CBC w Diff NO MAN DIFF REQ, RBC 4.40, MCV 75.3 L, MCH 24.5 L, MCHC 32.5 L, RDW 16.6 H, MPV 8.5 , Gran % 83.1 H, Lymphocytes % 14.2 L, Monocytes % 2.3, Eosinophils % 0.1, Basophils % 0.3, Absolute Granulocytes 7.9 H, Absolute Lymphocytes 1.3, Absolute Monocytes 0.2, Absolute Eosinophils 0, Absolute Basophils 0 Microbiology 11/11 2110 LOWER RESP: Respiratory Culture - CAN Cancelled: SPECIMEN NOT RECEIVED IN LABORATORY 11/11 2110 LOWER RESP: Gram Stain - CAN Cancelled: SPECIMEN NOT RECEIVED IN LABORATORY Assessment/Plan Assessment: Ms. Vásquez is a 36yo F w/ PMH of fibromyalgia, asthma on nocturnal oxygen of 2 L , cryptogenic pneumonia, syncope episodes on Paxil off label use, anxiety, TMJ pain controlled by oxycodone, presented to ER with chief complaint of hypoxia and difficulty breathing. Problem List; 1. 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 Chronic Medical Conditions - Continue to observe the patient on general medicine floor for 24-48 hours. - Continue IV Solu-Medrol 40 mg every 8, change to every 12 tomorrow. - Discontinue ceftriaxone and azithromycin and watch off antibiotics. - Bactrim for PCP prophylaxis. - Appreciate Pulmonology recommendations. - Continue supplemental oxygen - [facility] nebs - Continue home medications. DVT prophylaxis; subcutaneous Lovenox and Alps Patient is full code. Problem List: 1. Asthma with acute exacerbation in adult 2. Cryptogenic organizing pneumonia Pain Ratin Pain Location: None Pain Goal: Remain pain free Pain Plan: NA Tomorrow's Labs & Rationales: None
[2017-11-12 07:54] LABS: ABSOLUTE BASOPHIL COUNT 0 /CUMM (0.0-0.2); ABSOLUTE EOSINOPHIL COUNT 0 /CUMM (0.0-0.7); ABSOLUTE GRANULOCYTE CT 7.9 /CUMM (1.4-6.5); ABSOLUTE LYMPH COUNT 1.3 /CUMM (1.2-3.4); ABSOLUTE MONOCYTE COUNT 0.2 /CUMM (0.10-0.60); BASOPHIL % 0.3 % (0.0-2.0); EOSINOPHIL % 0.1 % (0-5); HEMATOCRIT 33.1 % (37-47); MEAN CORPUSCULAR HGB 24.5 PG (27.0-31.0); MEAN CORPUSCULAR HGB CONC 32.5 G/DL (33.0-37.0); MEAN CORPUSCULAR VOLUME 75.3 FL (81.0-99.0); MEAN PLATELET VOLUME 8.5 FL (7.4-10.4); PLATELET COUNT 366 /CUMM (130-400); RBC DISTRIBUTION WIDTH 16.6 % (11.5-14.5)
[2017-11-12 08:11] LABS: GRANULOCYTE % 83.1 % (42.2-75.2)
[2017-11-12 08:41] LABS: WHITE BLOOD CELL COUNT 9.5 /CUMM (4.8-10.8)
--- NOTE | 2017-11-12 11:50 | PN- Att Addend ---
Attending Addendum Attending Brief Note Patient seen and examined, claims that she is feeling better than yesterday but still pretty wheezy. Has dry cough. Vital Signs Date Time Temp Pulse Resp B/P B/P Pulse O2 O2 Flow FiO2 Mean Ox Delivery Rate 11/12 1029 91 Nasal 2.5L Cannula 11/12 0707 98.2 60 18 116/66 92 11/12 0000 93 Nasal 2.5L Cannula 11/11 2150 98.1 83 18 110/74 93 Nasal 2.5L Cannula 11/11 2050 Nasal 2.5L Cannula 11/11 1739 94 Nasal 2.0L Cannula 11/11 173 98.1 75 18 110/74 94 Nasal 2.0L Cannula 11/11 1300 98.5 101 20 111/59 93 Nasal 2.0L Cannula on exam; aox3, nad. cv; s1,s2, rrr resp; + exp wheeze b/l abd; soft, nt, bs+ ext; no edema Laboratory Tests 11/12 11/11 0640 1219 Chemistry Sodium (137 - 145 mmol/L) 140 142 Potassium (3.5 - 5.1 mmol/L) 4.7 4.1 Chloride (98 - 107 mmol/L) 102 98 Carbon Dioxide (22 - 30 mmol/L) 28 35 H Anion Gap (5 - 16) 10 9 BUN (7 - 17 mg/dL) 10 10 Creatinine (0.5 - 1.0 mg/dL) 0.6 0.8 Estimated GFR (>60 ml/min) > 60 > 60 BUN/Creatinine Ratio (7 - 25 %) 16.7 12.5 Glucose (65 - 99 mg/dL) 112 H Calcium (8.4 - 10.2 mg/dL) 9.1 Total Bilirubin (0.2 - 1.3 mg/dL) 0.6 AST (14 - 36 U/L) 18 ALT (9 - 52 U/L) 17 Alkaline Phosphatase (<127 U/L) 90 Troponin I (< 0.11 ng/ml) < 0.01 Total Protein (6.3 - 8.2 g/dL) 6.5 Albumin (3.5 - 5.0 g/dL) 3.5 Globulin (1.9 - 4.2 gm/dL) 3.0 Albumin/Globulin Ratio (1.1 - 2.2 %) 1.2 Total Beta HCG (NEGATIVE) NEGATIVE Hematology CBC w Diff NO MAN DIFF REQ MAN DIFF ORDERED WBC (4.8 - 10.8 /CUMM) 9.5 11.1 H RBC (4.20 - 5.40 /CUMM) 4.40 4.53 Hgb (12.0 - 16.0 G/DL) 10.8 L 11.1 L Hct (37 - 47 %) 33.1 L 34.6 L MCV (81.0 - 99.0 FL) 75.3 L 76.3 L MCH (27.0 - 31.0 PG) 24.5 L 24.5 L MCHC (33.0 - 37.0 G/DL) 32.5 L 32.1 L RDW (11.5 - 14.5 %) 16.6 H 16.5 H Plt Count (130 - 400 /CUMM) 366 378 MPV (7.4 - 10.4 FL) 8.5 8.2 Gran % (42.2 - 75.2 %) 83.1 H 51.3 Lymphocytes % (20.5 - 51.1 %) 14.2 L 20.7 Monocytes % (1.7 - 9.3 %) 2.3 5.0 Eosinophils % (0 - 5 %) 0.1 22.6 H Basophils % (0.0 - 2.0 %) 0.3 0.4 Absolute Granulocytes (1.4 - 6.5 /CUMM) 7.9 H 5.7 Absolute Lymphocytes (1.2 - 3.4 /CUMM) 1.3 2.3 Absolute Monocytes (0.10 - 0.60 /CUMM) 0.2 0.6 Absolute Eosinophils (0.0 - 0.7 /CUMM) 0 2.5 Absolute Basophils (0.0 - 0.2 /CUMM) 0 0 Platelet Estimate (ADEQUATE) VERIFIED BY SMEAR Polychromasia Hypochromic-Microcytic 1+ Anisocytosis 1+ Microcytic Cells 1+ Stomatocytes 1+ 11/11 1158 Chemistry Total Beta HCG Cancelled A/P: 37 y/o F with pmh sig for fibromyalgia, asthma on nocturnal oxygen of 2 L, cryptogenic pneumonia, syncope episodes on Paxil off label use, anxiety, TMJ pain controlled by oxycodone, admitted with acute respiratory failure likely secondary to acute asthma exacerbation. Patient did receive antibiotics in the emergency room but she is afebrile and she has no active cough. She is a dry cough. At this point we'll stop antibiotics and watch off and biotics. Continue IV steroids and TRC nebs. Pulmonology consult is recommended. Continue inhalers and the rest of the medications. Patient on Lovenox for DVT prophylaxis. She is not medically stable for discharge yet. Still requiring 2.5 lits of O2 and IV steroids.
--- NOTE | 2017-11-12 11:56 | Cons- Pulmonary ---
General Information and HPI Consulting Request Date of Consult: 11/12/17 Requested By: Dr. Coon Reason for Consult: asthma exac Source of Information: patient Exam Limitations: no limitations History of Present Illness: 37 year old woman. History of asthma, peripheral eosinophilia. 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 She has been on chronic prednisone and bactrim for prophylaxis. [facility] - being evaluated for 2nd opinion and possible lung bx. Presents with dyspnea worsened over past few days. CXR Patchy horizontal opacity left midlung question infiltrate versus atelectasis. eosinophilia Her IgE was elevated as high as 452 (last 120). She may qualify for Xolair therapy in future. She is currently on spiriva, paxil, claritin, proventil, trazadone, singulair, symbicort, bactrim DS, roxicodone Lovenox for DVT prophylaxis. No n/v/d/c. No cp. Dyspnea primarily on exertion, wheezing, coughing (dry). Occasional ONEILL, no joint pains or rashes. Patient has been to [facility] for a second opinion she is awaiting to complete their requested workup including bronchoscopy and sleep study which is pending. Allergies/Medications Allergies: Coded Allergies: No Known Allergies (06/19/17) Home Med List: Albuterol Sulfate (Proair Hfa) 90 MCG HFA.AER.AD 2 PUF INH Q4-6 PRN PRN RESPIRATORY . Budesonide/Formoterol Fumarate (Symbicort 160-4.5 Mcg Inhaler) 160 MCG-4.5 MCG/ ACTUATION HFA.AER.AD 2 PUF INH BID SOB . Gabapentin (Neurontin) 300 MG CAPSULE 1 CAP PO TID NERVE PAIN (Reported) Loratadine 10 MG TABLET 10 MG PO DAILY ASTHMA . Montelukast Sodium 10 MG TABLET 10 MG PO AT BEDTIME asthma . Oxycodone HCl 30 MG TABLET 1 TAB PO DAILY PRN PAIN (Reported) Paroxetine HCl 30 MG TABLET 1 TAB PO DAILY MENTAL HEALTH (Reported) Prednisone 20 MG TABLET 1 TAB PO DAILY BREATHING PROBLEMS (Reported) Tiotropium [place] (Spiriva) 18 MCG CAP.W.DEV 1 CAP INH DAILY ASTHMA . Trazodone HCl 50 MG TABLET 3 TAB PO QPM SLEEP (Reported) Current Medications: Current Medications Sig/Nathan Start time Last Medication Dose Route Stop Time Status Admin Acetaminophen 650 MG Q6P PRN 11/11 1615 AC PO Albuterol Sulfate 3 ML BID 11/11 2100 AC 11/12 INH 1025 Azithromycin 500 MG Q24H 11/12 1400 CAN Sodium Chloride 250 ML IV Azithromycin 500 MG ONCE ONE 11/11 1330 DC 11/11 Sodium Chloride 250 ML IV 11/11 1429 1428 Benzonatate 100 MG TID PRN 11/12 1000 AC PO Budesonide/ 2 PUF BID 11/11 2100 AC 11/12 Formoterol Fumarate INH 0927 Ceftriaxone Sodium 1,000 MG Q24H 11/12 1400 CAN IV Ceftriaxone Sodium 0 .STK-MED ONE 11/11 1352 DC .ROUTE Ceftriaxone Sodium 1,000 MG ONCE ONE 11/11 1330 DC 11/11 IV 11/11 1331 1428 Enoxaparin Sodium 40 MG DAILY@1600 11/11 1607 AC 11/11 SC 2018 Gabapentin 100 MG Q8P PRN 11/11 2115 AC PO Gabapentin 300 MG TID 11/11 2100 AC 11/12 PO 0927 Gabapentin 0 .STK-MED ONE 11/11 1459 DC PO Gabapentin 300 MG TID 11/11 1400 DC 11/11 PO 1428 Guaifenesin 10 ML Q4P PRN 11/12 1000 AC PO Hydroxyzine HCl 10 MG DAILY NEEDED PRN 11/11 1615 DC PO Loratadine 10 MG DAILY 11/11 1612 AC 11/12 PO 0927 Methylprednisolone 40 MG Q8 11/12 0800 AC 11/12 IV 0927 Methylprednisolone 0 .STK-MED ONE 11/11 1223 DC .ROUTE Montelukast Sodium 10 MG AT BEDTIME 11/11 2100 AC 11/11 PO 2018 Morphine Sulfate 2 MG Q4P PRN 11/11 1615 DC IV Oxycodone HCl 30 MG Q4 HRS NEEDED PRN 11/11 2115 AC 11/12 PO 0939 Oxycodone HCl 30 MG Q6PRN PRN 11/11 2045 DC PO Oxycodone HCl 5 MG Q6P PRN 11/11 1615 AC PO Oxycodone HCl 0 .STK-MED ONE 11/11 1352 DC PO Oxycodone HCl 30 MG DAILY NEEDED PRN 11/11 1245 DC 11/11 PO 1830 Paroxetine HCl 30 MG ONCE ONE 11/11 1415 DC 11/11 PO 11/11 1416 1428 Patient Medication 1 ED ONE ONE 11/12 1200 AC Teaching ED 11/12 1201 Trazodone HCl 150 MG QPM 11/11 2100 AC 11/11 PO 2018 Review of Systems Comments 18 point review of systems was performed and reviewed. Please see pertinent positives and pertinent negatives in the HPI. Otherwise ROS is negative. Past History Travel History Traveled to [place] past 21 day No Medical History Blood Transfusion Hx: No Neurological: FIBROMYALGIA EENT: TMJ arthritis s/p jaw surgery at [facility] 2010 ARTHROCENTESIS 2014 (DRAINED/ FLUSHED JAWS) Cardiovascular: syncope (vasovagal(has had cardio eval)) Respiratory: asthma, bronchitis, pneumonia, CRYPTOGENIC ORGANIZING PNA Gastrointestinal: constipation (IBS), irritable bowel syndrome Hepatic: NONE Renal: NONE Musculoskeletal: fibromyalgia Psychiatric: anxiety Endocrine: NONE Blood Disorders: NONE Cancer(s): NONE LAST PULLER/Reproductive: miscarriage, 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 FH: diabetes mellitus UNCLE-MATERNAL (BOOP). GRANDMOTHER-MATERNAL (CHF). Relation not specified for: FH: CAD (coronary artery disease) FH: HTN (hypertension) FH: ovarian cancer FH: uterine cancer Psychosocial History Who Do You Live With? parent Services at Home: None Primary Language: Georgian Smoking Status: Never Smoked ETOH Use: denies use Illicit Drug Use: denies illicit drug use Functional Ability ADLs Independent: dressing, eating, toileting, bathing. Ambulation: independent IADLs Independent: shopping, housework, finances, food prep, telephone, transportation , medication admin. Exam & Diagnostic Data Last 24 Hrs of Vital Signs/I&O Vital Signs Date Time Temp Pulse Resp B/P B/P Pulse O2 O2 Flow FiO2 Mean Ox Delivery Rate 11/12 1029 91 Nasal 2.5L Cannula 11/12 0707 98.2 60 18 116/66 92 11/12 0000 93 Nasal 2.5L Cannula 11/11 2150 98.1 83 18 110/74 93 Nasal 2.5L Cannula 11/11 2050 Nasal 2.5L Cannula 11/11 1739 94 Nasal 2.0L Cannula 11/11 1739 98.1 75 18 110/74 94 Nasal 2.0L Cannula 11/11 1300 98.5 101 20 111/59 93 Nasal 2.0L Cannula Intake & Output 11/12 1600 11/12 0800 11/12 0000 Intake Total 480 800 Output Total Balance 480 800 Intake, Oral 480 800 Patient 175 lb Weight Physical Exam Other Physical Findings: gen awake and alert heent ncat cvs s1, s2 lungs bilateral rhonchi abd soft, elevated bmi ext without edema Last 48 Hrs of Labs/Luke: Laboratory Tests 11/12/17 0640: Anion Gap 10, Estimated GFR > 60, BUN/Creatinine Ratio 16.7, CBC w Diff NO MAN DIFF REQ, RBC 4.40, MCV 75.3 L, MCH 24.5 L, MCHC 32.5 L, RDW 16.6 H, MPV 8.5 , Gran % 83.1 H, Lymphocytes % 14.2 L, Monocytes % 2.3, Eosinophils % 0.1, Basophils % 0.3, Absolute Granulocytes 7.9 H, Absolute Lymphocytes 1.3, Absolute Monocytes 0.2, Absolute Eosinophils 0, Absolute Basophils 0 11/11/17 1219: Anion Gap 9, Estimated GFR > 60, BUN/Creatinine Ratio 12.5, Glucose 112 H, Calcium 9.1, Total Bilirubin 0.6, AST 18, ALT 17, Alkaline Phosphatase 90, Troponin I < 0.01, Total Protein 6.5, Albumin 3.5, Globulin 3.0, Albumin/ Globulin Ratio 1.2, Total Beta HCG NEGATIVE, CBC w Diff MAN DIFF ORDERED, RBC 4.53, MCV 76.3 L, MCH 24.5 L, MCHC 32.1 L, RDW 16.5 H, MPV 8.2, Gran % 51.3, Lymphocytes % 20.7, Monocytes % 5.0, Eosinophils % 22.6 H, Basophils % 0.4, Absolute Granulocytes 5.7, Absolute Lymphocytes 2.3, Absolute Monocytes 0.6, Absolute Eosinophils 2.5, Absolute Basophils 0, Platelet Estimate VERIFIED BY SMEAR, Polychromasia , Hypochromic-Microcytic 1+, Anisocytosis 1+, Microcytic Cells 1+, Stomatocytes 1+ 11/11/17 1158: Total Beta HCG Cancelled Assessment/Plan Impression/Plan: 36-year-old woman * Exacerbation of asthma * History of cryptogenic pneumonia Plan -continue iv solumedrol 40mg iv q8h, taper to q12 tomorrow if no events -add home bactrim for pcp prophylaxis -needs to f/u next week at [facility] for a second opinion she is awaiting to complete their requested workup including bronchoscopy and sleep study which is pending. -TRC/Nebs DVT prophylaxis at all times Consult Acknowledgment - Thank you for your consult request.
[2017-11-12 14:19] VITALS: BP 112/60
[2017-11-12 21:56] VITALS: BP 120/70
[2017-11-13 06:55] VITALS: BP 108/62
--- NOTE | 2017-11-13 07:29 | PN- Housestaff ---
Subjective Follow-up For: Asthma exacerbation Cryptogenic organizing pneumonia Subjective: Patient does not notice any improvement in breathing. Cough also remains the same but she is not bringing up any phlegm. Denies any fever/chills. Review of Systems Constitutional: Reports: no symptoms. EENTM: Reports: no symptoms. Cardiovascular: Reports: no symptoms. Respiratory: Reports: cough, short of breath, wheezing. Gastrointestinal: Reports: no symptoms. Genitourinary: Reports: no symptoms. Musculoskeletal: Reports: no symptoms. Skin: Reports: no symptoms. Neurological/Psychological: Reports: no symptoms. Hematologic/Endocrine: Reports: no symptoms. Immunologic/Allergic: Reports: no symptoms. Objective Last 24 Hrs of Vital Signs/I&O Vital Signs Date Time Temp Pulse Resp B/P B/P Pulse O2 O2 Flow FiO2 Mean Ox Delivery Rate 11/13 1042 96 Nasal 2.0L Cannula 11/13 0844 94 Nasal 2.5L Cannula 11/13 0800 95 Room Air 2.5L 11/13 0655 97.8 59 18 108/62 94 Nasal 2.5L Cannula 11/13 0000 96 Nasal 2.0L Cannula 11/12 2156 99.2 105 20 120/70 96 Nasal 2.5L Cannula 11/12 1853 98 Nasal 2.5L Cannula Intake & Output 11/13 1600 11/13 0800 11/13 0000 Intake Total 450 774 Output Total Balance 450 774 Intake, IV 50 30 Intake, Oral 400 744 Patient 175 lb Weight Weight Reported by Patient Measurement Method Physical Exam General Appearance: Alert, Oriented X3, Cooperative, No Acute Distress Skin: No Rashes, No Breakdown Cardiovascular: Regular Rate, Normal S1, Normal S2 Lungs: wheezing bilaterally Abdomen: Normal Bowel Sounds, Soft, No Tenderness Extremities: No Clubbing, No Cyanosis, No Edema Current Medications: Current Medications Sig/Nathan Start time Last Medication Dose Route Stop Time Status Admin Acetaminophen 650 MG Q6P PRN 11/11 1615 AC PO Albuterol Sulfate 3 ML BID 11/11 2100 AC 11/13 INH 0843 Benzonatate 100 MG TID PRN 11/12 1000 AC 11/12 PO 1208 Budesonide/ 2 PUF BID 11/11 2100 AC 11/13 Formoterol Fumarate INH 0852 Enoxaparin Sodium 40 MG DAILY@1600 11/11 1607 AC 11/11 SC 2018 Gabapentin 100 MG Q8P PRN 11/11 211 AC PO Gabapentin 300 MG TID 11/11 2100 AC 11/13 PO 1327 Guaifenesin 10 ML Q4P PRN 11/12 1000 AC 11/12 PO 1628 Loratadine 10 MG DAILY 11/11 1612 AC 11/13 PO 0851 Methylprednisolone 40 MG Q8 11/12 0800 AC 11/13 IV 1327 Montelukast Sodium 10 MG AT BEDTIME 11/11 2100 AC 11/12 PO 2031 Oxycodone HCl 30 MG Q4 HRS NEEDED PRN 11/11 2115 AC 11/13 PO 1027 Oxycodone HCl 5 MG Q6P PRN 11/11 1615 AC 11/12 PO 1727 Phenol 2 SPRAY Q2P PRN 11/13 0930 AC 11/13 EXT 1328 Trazodone HCl 150 MG QPM 11/11 2100 AC 11/12 PO 2031 Trimethoprim/ 1 TAB DAILY 11/12 1402 AC 11/13 Sulfamethoxazole PO 0851 Assessment/Plan Assessment: Ms. Vásquez is a 36yo F w/ PMH of fibromyalgia, asthma on nocturnal oxygen of 2 L , cryptogenic pneumonia, syncope episodes on Paxil off label use, anxiety, TMJ pain controlled by oxycodone, presented to ER with chief complaint of hypoxia and difficulty breathing. Problem List; 1. 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 Chronic Medical Conditions - Patient remians symptomatic requiring IV solumedrol, will convert to full admit. - Continue IV Solu-Medrol 40 mg every 8. - Continue to watch off antibiotics. - Bactrim for PCP prophylaxis. - Appreciate Pulmonology recommendations. - Continue supplemental oxygen, will try top taper down. - [facility] nebs - Continue home medications. DVT prophylaxis; subcutaneous Lovenox and Alps Patient is full code. Problem List: 1. Asthma exacerbation 2. Cryptogenic organizing pneumonia Pain Ratin Pain Location: NA Pain Goal: Remain pain free Pain Plan: Pain Pathway Tomorrow's Labs & Rationales: None
--- NOTE | 2017-11-13 08:40 | Patient Discharge Instructions ---
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 Diet Continue normal diet: Yes Activity Full Activity/No Limits: Yes Acute Coronary Syndrome Inclusion Criteria At DC or during hospital stay patient has or had the following: ACS DIAGNOSIS No Discharge Core Measures Meds if any: Prescribed or Continued at Discharge Meds if any: NOT Prescribed or Continued at Discharge Congestive Heart Failure Inclusion Criteria At DC or during hospital stay patient has or had the following: CHF DIAGNOSIS No Discharge Core Measures Meds if any: Prescribed or Continued at Discharge Meds if any: NOT Prescribed or Continued at Discharge Cerebrovascular accident Inclusion Criteria At DC or during hospital stay patient has or had the following: CVA/TIA Diagnosis No Discharge Core Measures Meds if any: Prescribed or Continued at Discharge Meds if any: NOT Prescribed or Continued at Discharge Venous thromboembolism Inclusion Criteria VTE Diagnosis No VTE Type NONE VTE Confirmed by (Test) NONE Discharge Core Measures - Per Current guidelines, there needs to be overlap - treatment for the first 5 days of Warfarin therapy. - If discharged on Warfarin prior to 5 days of - overlap therapy, the patient will need to be - assessed for post discharge needs including - *Post discharge parental anticoagulation - *Warfarin and/or parental anticoagulation education - *Follow up date to check INR post discharge At least 5 days overlap therapy as Inpatient No Meds if any: Prescribed or Continued at Discharge Note: Overlap Therapy is Warfarin and Anticoagulant Meds if any: NOT Prescribed or Continued at Discharge
--- NOTE | 2017-11-13 11:31 | PN- Att Addend ---
Attending Addendum Attending Brief Note Patient seen and examined, not feeling much better. She had a rapid response last evening due to her shortness of breath and intractable cough. She still very wheezy. She was requiring 2.5 L of oxygen. Vital Signs Date Time Temp Pulse Resp B/P B/P Pulse O2 O2 Flow FiO2 Mean Ox Delivery Rate 11/13 1042 96 Nasal 2.0L Cannula 11/13 0844 94 Nasal 2.5L Cannula 11/13 0655 97.8 59 18 108/62 94 Nasal 2.5L Cannula 11/13 0000 96 Nasal 2.0L Cannula 11/12 2156 99.2 105 20 120/70 96 Nasal 2.5L Cannula 11/12 1853 98 Nasal 2.5L Cannula 11/12 1419 97.9 82 18 112/60 96 Nasal 2.5L Cannula on exam; aox3, nad. cv; s1,s2, rrr resp; + exp wheeze b/l abd; soft, nt, bs+ ext; no edema no labs today. A/P; 37 y/o F with pmh sig for fibromyalgia, asthma on nocturnal oxygen of 2 L, cryptogenic pneumonia, syncope episodes, anxiety, TMJ pain controlled by oxycodone, admitted with acute respiratory failure likely secondary to acute asthma exacerbation. We'll keep the patient on current dose of steroids. Appreciate pulmonology input. We'll resume patient on her Bactrim for PCP prophylaxis. We'll try to taper her oxygen. Continue TRC nebs, all the inhalers and antihistamines. Patient on Lovenox for DVT prophylaxis. She was encouraged to ambulate. She is not medically stable for discharge. Therefore she will be converted to full inpatient admission.
--- NOTE | 2017-11-13 11:45 | PN- Pulmonary ---
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 for bronchospasm feeling better today, but still not recovered Objective Current Medications: Current Medications Sig/Nathan Start time Last Medication Dose Route Stop Time Status Admin Acetaminophen 650 MG Q6P PRN 11/11 1615 AC PO Albuterol Sulfate 3 ML BID 11/11 2100 AC 11/13 INH 0843 Benzonatate 100 MG TID PRN 11/12 1000 AC 11/12 PO 1208 Budesonide/ 2 PUF BID 11/11 2100 AC 11/13 Formoterol Fumarate INH 0852 Enoxaparin Sodium 40 MG DAILY@1600 11/11 1607 AC 11/11 SC 2018 Gabapentin 100 MG Q8P PRN 11/11 2115 AC PO Gabapentin 300 MG TID 11/11 2100 AC 11/13 PO 0850 Guaifenesin 10 ML Q4P PRN 11/12 1000 AC 11/12 PO 1628 Loratadine 10 MG DAILY 11/11 1612 AC 11/13 PO 0851 Methylprednisolone 40 MG Q8 11/12 0800 AC 11/13 IV 0623 Montelukast Sodium 10 MG AT BEDTIME 11/11 2100 AC 11/12 PO 2031 Oxycodone HCl 30 MG Q4 HRS NEEDED PRN 11/11 2115 AC 11/13 PO 1027 Oxycodone HCl 5 MG Q6P PRN 11/11 1615 AC 11/12 PO 1727 Patient Medication 1 ED ONE ONE 11/12 1200 DC 11/12 Teaching ED 11/12 1201 1431 Phenol 2 SPRAY Q2P PRN 11/13 0930 AC EXT Trazodone HCl 150 MG QPM 11/11 2100 AC 11/12 PO 2031 Trimethoprim/ 1 TAB DAILY 11/12 1402 AC 11/13 Sulfamethoxazole PO 0851 Vital Signs & I&O Last 24 Hrs of Vitals and I&O: Vital Signs Date Time Temp Pulse Resp B/P B/P Pulse O2 O2 Flow FiO2 Mean Ox Delivery Rate 11/13 1042 96 Nasal 2.0L Cannula 11/13 0844 94 Nasal 2.5L Cannula 11/13 0800 95 Room Air 2.5L 11/13 0655 97.8 59 18 108/62 94 Nasal 2.5L Cannula 11/13 0000 96 Nasal 2.0L Cannula 11/12 2156 99.2 105 20 120/70 96 Nasal 2.5L Cannula 11/12 1853 98 Nasal 2.5L Cannula 11/12 1419 97.9 82 18 112/60 96 Nasal 2.5L Cannula Intake & Output 11/13 1600 11/13 0800 11/13 0000 Intake Total 450 774 Output Total Balance 450 774 Intake, IV 50 30 Intake, Oral 400 744 Patient 175 lb Weight Weight Reported by Patient Measurement Method Exam Other Physical Findings: gen awake and alert heent ncat cvs s1, s2 lungs bilateral rhonchi abd soft, elevated bmi ext without edema Impression/Plan Impression/Plan Impression/Plan: 36-year-old woman * Exacerbation of asthma * History of cryptogenic pneumonia Plan -continue iv solumedrol 40mg iv q8h for now -add home bactrim for pcp prophylaxis -needs to f/u next week at [facility] for a second opinion she is awaiting to complete their requested workup including bronchoscopy and sleep study which is pending. -TRC/Nebs DVT prophylaxis at all times
[2017-11-13 15:18] VITALS: BP 118/78
[2017-11-13 22:01] VITALS: BP 107/70
[2017-11-14 06:57] VITALS: BP 112/64
--- NOTE | 2017-11-14 07:20 | PN- Housestaff ---
Subjective Follow-up For: Asthma exacerbation Cryptogenic organizing pneumonia Subjective: Patient feels improvment in her breathing and also the cough. No fever/chills or phlegm production. Review of Systems Constitutional: Reports: no symptoms. EENTM: Reports: no symptoms. Cardiovascular: Reports: no symptoms. Respiratory: Reports: cough, short of breath. Gastrointestinal: Reports: no symptoms. Genitourinary: Reports: no symptoms. Musculoskeletal: Reports: no symptoms. Skin: Reports: no symptoms. Neurological/Psychological: Reports: no symptoms. Hematologic/Endocrine: Reports: no symptoms. Immunologic/Allergic: Reports: no symptoms. Objective Last 24 Hrs of Vital Signs/I&O Vital Signs Date Time Temp Pulse Resp B/P B/P Pulse O2 O2 Flow FiO2 Mean Ox Delivery Rate 11/14 0800 96 Nasal 1.5L Cannula 11/14 0657 97.6 62 18 112/64 98 Nasal 2.0L Cannula 11/14 0000 Nasal 2.0L Cannula 11/13 2201 97.8 67 18 107/70 93 Nasal 2.0L Cannula 11/13 1845 96 Nasal 2.0L Cannula 11/13 1600 97 Nasal 2.0L Cannula 11/13 1518 97.7 77 20 118/78 97 Nasal 2.0L Cannula Intake & Output 11/14 1600 11/14 0800 11/14 0000 Intake Total 240 600 Output Total Balance 240 600 Intake, Oral 240 600 Physical Exam General Appearance: Alert, Oriented X3, Cooperative, No Acute Distress Skin: No Rashes, No Breakdown Cardiovascular: Regular Rate, Normal S1, Normal S2 Lungs: Wheezing on bilateral lung vargas. Abdomen: Normal Bowel Sounds, Soft, No Tenderness Extremities: No Clubbing, No Cyanosis, No Edema Current Medications: Current Medications Sig/Nathan Start time Last Medication Dose Route Stop Time Status Admin Acetaminophen 650 MG Q6P PRN 11/11 1615 AC PO Albuterol Sulfate 3 ML BID 11/11 2100 11/13 INH 1845 Benzonatate 100 MG TID PRN 11/12 1000 AC 11/12 PO 1208 Budesonide/ 2 PUF BID 11/11 2100 11/14 Formoterol Fumarate INH 1031 Enoxaparin Sodium 40 MG DAILY@1600 11/11 1607 AC 11/11 SC 2018 Gabapentin 100 MG Q8P PRN 11/11 2115 AC PO Gabapentin 300 MG TID 11/11 2100 AC 11/14 PO 1030 Guaifenesin 10 ML Q4P PRN 11/12 1000 AC 11/12 PO 1628 Loratadine 10 MG DAILY 11/11 1612 AC 11/14 PO 1029 Methylprednisolone 40 MG Q12 11/14 2100 AC IV Methylprednisolone 40 MG Q8 11/12 0800 DC 11/14 IV 0528 Montelukast Sodium 10 MG AT BEDTIME 11/11 2100 AC 11/13 PO 2106 Oxycodone HCl 30 MG Q4 HRS NEEDED PRN 11/11 2115 AC 11/14 PO 1041 Oxycodone HCl 5 MG Q6P PRN 11/11 1615 AC 11/12 PO 1727 Phenol 2 SPRAY Q2P PRN 11/13 0930 AC 11/13 EXT 1328 Trazodone HCl 150 MG QPM 11/11 2100 AC 11/13 PO 2106 Trimethoprim/ 1 TAB DAILY 11/12 1402 AC 11/14 Sulfamethoxazole PO 1030 Assessment/Plan Assessment: Ms. Vásquez is a 36yo F w/ PMH of fibromyalgia, asthma on nocturnal oxygen of 2 L , cryptogenic pneumonia, syncope episodes on Paxil off label use, anxiety, TMJ pain controlled by oxycodone, presented to ER with chief complaint of hypoxia and difficulty breathing. Problem List; 1. 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 Chronic Medical Conditions - Continue IV Solu-Medrol 40 mg, decrease frequency to Q12. - Continue to watch off antibiotics. - Bactrim for PCP prophylaxis. - Appreciate Pulmonology recommendations. - Continue supplemental oxygen, will try to taper down. - TRC nebs - Continue home medications. DVT prophylaxis; subcutaneous Lovenox and Alps Patient is full code. Problem List: 1. Asthma exacerbation 2. Cryptogenic organizing pneumonia Pain Ratin Pain Location: NA Pain Goal: Remain pain free Pain Plan: Pain Pathway Tomorrow's Labs & Rationales: None
--- NOTE | 2017-11-14 08:50 | PN- Pulmonary ---
Subjective HPI/Critical Care Issues: pt seen and examined no overnight events afebrile dyspnea improving no davis, no cp, no n/v/d/c Objective Current Medications: Current Medications Sig/Nathan Start time Last Medication Dose Route Stop Time Status Admin Acetaminophen 650 MG Q6P PRN 11/11 1615 AC PO Albuterol Sulfate 3 ML BID 11/11 2100 AC 11/13 INH 1845 Benzonatate 100 MG TID PRN 11/12 1000 AC 11/12 PO 1208 Budesonide/ 2 PUF BID 11/11 2100 AC 11/13 Formoterol Fumarate INH 2106 Enoxaparin Sodium 40 MG DAILY@1600 11/11 1607 AC 11/11 SC 2018 Gabapentin 100 MG Q8P PRN 11/11 2115 AC PO Gabapentin 300 MG TID 11/11 2100 AC 11/13 PO 2106 Guaifenesin 10 ML Q4P PRN 11/12 1000 AC 11/12 PO 1628 Loratadine 10 MG DAILY 11/11 1612 AC 11/13 PO 0851 Methylprednisolone 40 MG Q8 11/12 0800 AC 11/14 IV 0528 Montelukast Sodium 10 MG AT BEDTIME 11/11 2100 AC 11/13 PO 2106 Oxycodone HCl 30 MG Q4 HRS NEEDED PRN 11/11 2115 AC 11/14 PO 0528 Oxycodone HCl 5 MG Q6P PRN 11/11 1615 AC 11/12 PO 1727 Phenol 2 SPRAY Q2P PRN 11/13 0930 AC 11/13 EXT 1328 Trazodone HCl 150 MG QPM 11/11 2100 AC 11/13 PO 2106 Trimethoprim/ 1 TAB DAILY 11/12 1402 AC 11/13 Sulfamethoxazole PO 0851 Vital Signs & I&O Last 24 Hrs of Vitals and I&O: Vital Signs Date Time Temp Pulse Resp B/P B/P Pulse O2 O2 Flow FiO2 Mean Ox Delivery Rate 11/14 0657 97.6 62 18 112/64 98 Nasal 2.0L Cannula 11/14 0000 Nasal 2.0L Cannula 11/131 97.8 67 18 107/70 93 Nasal 2.0L Cannula 11/13 1845 96 Nasal 2.0L Cannula 11/13 1600 97 Nasal 2.0L Cannula 11/13 1518 97.7 77 20 118/78 97 Nasal 2.0L Cannula 11/13 1042 96 Nasal 2.0L Cannula Intake & Output 11/14 1600 11/14 0800 11/14 0000 Intake Total 240 600 Output Total Balance 240 600 Intake, Oral 240 600 Exam Other Physical Findings: gen awake and alert heent ncat cvs s1, s2 lungs bilateral rhonchi abd soft, elevated bmi ext without edema Impression/Plan Impression/Plan Impression/Plan: 36-year-old woman * Exacerbation of asthma * History of cryptogenic pneumonia Plan -REDUCE iv solumedrol 40mg iv q12 -CONTINUE bactrim for pcp prophylaxis indefinitely while on prednisone -pt to re-call [facility] for continued follow up and further workup -TRC/Nebs DVT prophylaxis at all times
--- NOTE | 2017-11-14 11:50 | PN- Att Addend ---
Attending Addendum Attending Brief Note Patient seen and examined, overall doing better. Breathing has improved. Vital Signs Date Time Temp Pulse Resp B/P B/P Pulse O2 O2 Flow FiO2 Mean Ox Delivery Rate 11/14 0657 97.6 62 18 112/64 98 Nasal 2.0L Cannula 11/14 0000 Nasal 2.0L Cannula 11/13 2201 97.8 67 18 107/70 93 Nasal 2.0L Cannula 11/13 1845 96 Nasal 2.0L Cannula 11/13 1600 97 Nasal 2.0L Cannula 11/13 1518 97.7 77 20 118/78 97 Nasal 2.0L Cannula on exam; aox3, nad. cv; s1,s2, rrr resp; + b/l wheeze but improved than before. abd; soft, nt, bs+ ext; no edema no labs. A/P; 37 y/o F with pmh sig for fibromyalgia, asthma on nocturnal oxygen of 2 L, cryptogenic pneumonia, syncope episodes, anxiety, TMJ pain controlled by oxycodone, admitted with acute hypoxic respiratory failure likely secondary to acute asthma exacerbation. Will decrease the steroids to every 12 today. Continue inhalers, TRC nebs, Bactrim for PCP prophylaxis. Continue the Unasyn management. Patient on Lovenox for DVT prophylaxis. If continues to improve and likely discharge home on oral prednisone over the weekend. Please confirm with pulmonology about prednisone dosing.
[2017-11-14 14:16] VITALS: BP 129/79
[2017-11-14 22:08] VITALS: BP 118/76
[2017-11-15 07:00] VITALS: BP 120/74
[2017-11-15] MEDS ORDERED: BENZONATATE100 M1 PO ×2 (10:09→14:05)
[2017-11-15] MEDS ORDERED: SULFAMETHOXAZO1 EAC1 PO (10:10)
[2017-11-15] MEDS ORDERED: PREDNISONE10 M2 PO ×2 (10:48→14:05)
--- NOTE | 2017-11-15 11:56 | PN- Pulmonary ---
Subjective HPI/Critical Care Issues: pt seen and examined. feels much better. minimal wheezing. awaiting for dc. Objective Current Medications: Current Medications Sig/Nathan Start time Last Medication Dose Route Stop Time Status Admin Acetaminophen 650 MG Q6P PRN 11/11 1615 AC PO Albuterol Sulfate 3 ML BID 11/11 2100 AC 11/14 INH 1950 Benzocaine/Menthol 1 MARKEL Q2P PRN 11/15 0900 AC PO Benzonatate 100 MG TID PRN 11/12 1000 AC 11/12 PO 1208 Budesonide/ 2 PUF BID 11/11 2100 AC 11/15 Formoterol Fumarate INH 0831 Enoxaparin Sodium 40 MG DAILY@1600 11/11 1607 AC 11/11 SC 2018 Gabapentin 100 MG Q8P PRN 11/11 2115 AC PO Gabapentin 300 MG TID 11/11 2100 AC 11/15 PO 0831 Guaifenesin 10 ML Q4P PRN 11/12 1000 AC 11/12 PO 1628 Loratadine 10 MG DAILY 11/11 1612 AC 11/15 PO 0831 Methylprednisolone 40 MG Q12 11/14 2100 AC 11/15 IV 0831 Montelukast Sodium 10 MG AT BEDTIME 11/11 2100 AC 11/14 PO 2026 Oxycodone HCl 30 MG Q4 HRS NEEDED PRN 11/11 2115 AC 11/15 PO 0921 Oxycodone HCl 5 MG Q6P PRN 11/11 1615 AC 11/12 PO 1727 Paroxetine HCl 60 MG 2100 11/14 2100 AC 11/15 PO 0031 Patient Medication 1 ED ONE ONE 11/14 1430 DC 11/14 Teaching ED 11/14 1431 1500 Phenol 2 SPRAY Q2P PRN 11/13 0930 AC 11/13 EXT 1328 Sodium Chloride 2 SPRAY Q4P PRN 11/15 0900 AC NEETA Trazodone HCl 150 MG QPM 11/11 2100 AC 11/14 PO 2026 Trimethoprim/ 1 TAB DAILY 11/16 0900 AC Sulfamethoxazole PO 11/17 0859 Trimethoprim/ 1 TAB DAILY 11/12 1402 AC 11/15 Sulfamethoxazole PO 0831 Vital Signs & I&O Last 24 Hrs of Vitals and I&O: Vital Signs Date Time Temp Pulse Resp B/P B/P Pulse O2 O2 Flow FiO2 Mean Ox Delivery Rate 11/15 0700 98.0 61 18 120/74 94 11/15 0000 96 Nasal 1.0L Cannula 11/14 2208 98.4 74 18 118/76 95 Nasal 1.0L Cannula 11/14 1951 95 Nasal 1.0L Cannula 11/14 1416 98.0 83 18 129/79 96 Room Air Intake & Output 11/15 1600 11/15 0800 11/15 0000 Intake Total 320 320 Output Total Balance 320 320 Intake, IV 20 20 Intake, Oral 300 300 Exam Other Physical Findings: gen awake and alert heent ncat cvs s1, s2 lungs bilateral rhonchi abd soft, elevated bmi ext without edema Impression/Plan Impression/Plan Impression/Plan: 36-year-old woman * Exacerbation of asthma * History of cryptogenic pneumonia Plan -dc home today -prednisone 60mg x 1 week, 50mg x 1 week, resume 40mg and f/u with [place] -CONTINUE bactrim for pcp prophylaxis indefinitely while on prednisone -pt to re-call [facility] for continued follow up and further workup -TRC/Nebs DVT prophylaxis at all times
--- NOTE | 2017-11-15 12:06 | PN- Housestaff ---
Jayson CHAPARRO,[facility] 11/15/17 1205: Subjective Follow-up For: Asthma exacerbation Cryptogenic organizing pneumonia Subjective: Patient feels she is back to her baseline, cough has improved significantly. She does not feel short of breath anymore, was ambulating without oxygen last night and also the wheezing has gone. Denies any fever/chills. Review of Systems Constitutional: Reports: no symptoms. EENTM: Reports: no symptoms. Cardiovascular: Reports: no symptoms. Respiratory: Reports: no symptoms. Gastrointestinal: Reports: no symptoms. Genitourinary: Reports: no symptoms. Musculoskeletal: Reports: no symptoms. Skin: Reports: no symptoms. Neurological/Psychological: Reports: no symptoms. Hematologic/Endocrine: Reports: no symptoms. Immunologic/Allergic: Reports: no symptoms. Objective Last 24 Hrs of Vital Signs/I&O Vital Signs Date Time Temp Pulse Resp B/P B/P Pulse O2 O2 Flow FiO2 Mean Ox Delivery Rate 11/15 0800 95 11/15 0700 98.0 61 18 120/74 94 11/15 0000 96 Nasal 1.0L Cannula 11/148 98.4 74 18 118/76 95 Nasal 1.0L Cannula 11/14 1951 95 Nasal 1.0L Cannula Intake & Output 11/15 1600 11/15 0800 11/15 0000 Intake Total 750 320 320 Output Total Balance 750 320 320 Intake, IV 30 20 20 Intake, Oral 720 300 300 Physical Exam General Appearance: Alert, Oriented X3, Cooperative Skin: No Rashes, No Breakdown Cardiovascular: Regular Rate, Normal S1, Normal S2 Lungs: Clear to Auscultation, Normal Air Movement Abdomen: Normal Bowel Sounds, Soft, No Tenderness Extremities: No Clubbing, No Cyanosis, No Edema Current Medications: Current Medications Sig/Nathan Start time Last Medication Dose Route Stop Time Status Admin Acetaminophen 650 MG Q6P PRN 11/11 1615 DCD PO Albuterol Sulfate 3 ML BID 11/11 2100 DCD 11/14 INH 1950 Benzocaine/Menthol 1 MARKEL Q2P PRN 11/15 0900 DCD PO Benzonatate 100 MG TID PRN 11/12 1000 DCD 11/12 PO 1208 Budesonide/ 2 PUF BID 11/11 2100 DCD 11/15 Formoterol Fumarate INH 0831 Enoxaparin Sodium 40 MG DAILY@1600 11/11 1607 DCD 11/11 SC 2018 Gabapentin 100 MG Q8P PRN 11/11 2114 DCD PO Gabapentin 300 MG TID 11/11 2100 DCD 11/15 PO 1318 Guaifenesin 10 ML Q4P PRN 11/12 1000 DCD 11/12 PO 1628 Loratadine 10 MG DAILY 11/11 1612 DCD 11/15 PO 0831 Methylprednisolone 40 MG Q12 11/14 2100 DCD 11/15 IV 0831 Montelukast Sodium 10 MG AT BEDTIME 11/11 2099 DCD 11/14 PO 202 Oxycodone HCl 30 MG Q4 HRS NEEDED PRN 11/11 211 DCD 11/15 PO 1353 Oxycodone HCl 5 MG Q6P PRN 11/11 161 DCD 11/12 PO 1727 Paroxetine HCl 60 MG 2100 11/14 2099 DCD 11/15 PO 0031 Phenol 2 SPRAY Q2P PRN 11/13 0930 DCD 11/13 EXT 1328 Sodium Chloride 2 SPRAY Q4P PRN 11/15 0900 DCD NEETA Trazodone HCl 150 MG QPM 11/11 2100 DCD 11/14 PO 2026 Trimethoprim/ 1 TAB DAILY 11/16 0900 DCD Sulfamethoxazole PO 11/17 0859 Trimethoprim/ 1 TAB DAILY 11/12 1402 DCD 11/15 Sulfamethoxazole PO 0831 Assessment/Plan Assessment: Ms. Vásquez is a 36yo F w/ PMH of fibromyalgia, asthma on nocturnal oxygen of 2 L , cryptogenic pneumonia, syncope episodes on Paxil off label use, anxiety, TMJ pain controlled by oxycodone, presented to ER with chief complaint of hypoxia and difficulty breathing. Problem List; 1. 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 Chronic Medical Conditions - Continue IV Solu-Medrol 40 mg, will receive last dose today. Will be discharged home on prednisone taper with 60 mg 1 week, 50 mg 1 week and continue 40 mg after that. - Continue to watch off antibiotics. - Bactrim for PCP prophylaxis. - Appreciate Pulmonology recommendations. - Disontinue supplemental oxygen. - TRC nebs - Continue home medications. DVT prophylaxis; subcutaneous Lovenox and Alps Patient is full code. Problem List: 1. Asthma exacerbation 2. Cryptogenic organizing pneumonia Pain Ratin Pain Location: None Pain Goal: Remain pain free Pain Plan: Pain pathway Tomorrow's Labs & Rationales: None Shaggy MD,Darling 11/15/17 1316: Attending MD Review Statement Attending Statement Attending MD Statement: examined this patient, discuss w/resident/PA/CASING CLEANER, agreed w/resident/PA/CASING CLEANER, reviewed EMR data (avail), discussed with nursing, discussed with case mgmt, amended to note Attending Assessment/Plan: Patient seen and examined, overall doing much better. Not requiring any oxygen. She can be switched to oral prednisone which can be tapered down to her home dose of 40 mg. Continue the rest of her home medications. Patient seen by Dr. Verdugo. Medically stable for discharge home today.
--- NOTE | 2017-11-15 18:22 | Discharge Summary ---
Visit Information Visit Dates Admission Date: 11/13/17 Discharge Date: 11/15/17 Hospital Course Course Attending Physician: Darling Coon MD Primary Care Physician: James CHAPARRO,Socrates Mehta Hospital Course: Ms. Vásquez is a 36yo F w/ PMH of fibromyalgia, asthma on nocturnal oxygen of 2 L , cryptogenic pneumonia, syncope episodes on Paxil off label use, anxiety, TMJ pain controlled by oxycodone, presented to ER with chief complaint of hypoxia and difficulty breathing. Problem List; 1. 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 Chronic Medical Conditions Pulmonology consult was obtained. Patient was started on IV solumedrol which was gradually tappered and she was sent home on a quick steroid taper to her home dose of Prednisone 40mg daily. She was watch off antibiotics. She also required supplemental oxygen initially which was tapered down on discharge. Bactrim was continued for PCP prophylaxis. Her home medications were continued. Allergies: Coded Allergies: No Known Allergies (06/19/17) Significant Procedures: XRY-CHEST XRAY, TWO VIEWS FINDINGS: The lungs are well-expanded with patchy density seen in the left midlung region question lingular infiltrate/atelectasis or fissural thickening. Rest of lungs are clear. The heart size and pulmonary vascularity is normal. No gross bony abnormality seen. IMPRESSION: Patchy horizontal opacity left midlung question infiltrate versus atelectasis. It is new since 10/18/2017 exam. Disposition Summary Disposition Principal Diagnosis: Asthma exacerbation Cryptogenic organizing pneumonia Additional Diagnosis: As above Discharge Disposition: home or self care Discharge Instructions General Discharge Information Code Status: Full Code Patient's Diet: Regular Patient's Activity: As tolerated Follow-Up Instructions/Appts: Please follow up with your PCP and Data Processing Equipment Repairer within a week after discharge. Medications at Discharge Discharge Medications: Stop taking the following medications: Hydroxyzine HCl (hydrOXYzine HCl) 10 MG TABLET ORAL DAILY as needed for FOR ALLERGY Qty = 30 Prednisone (Prednisone) 20 MG TABLET ORAL DAILY Continue taking these medications: Trazodone HCl (Trazodone HCl) 50 MG TABLET 3 Tablet ORAL Every night Qty = 30 Comments: Last Taken: 11/14/17 Time: 8:26 PM Paroxetine HCl (Paroxetine HCl) 30 MG TABLET 1 Tablet ORAL DAILY Comments: Last Taken:11/15/17 Time:12:30 AM Oxycodone HCl (Oxycodone HCl) 30 MG TABLET 1 Tablet ORAL DAILY as needed for PAIN Comments: Last Taken:11/15/17 Time:1:45 PM Loratadine (Loratadine) 10 MG TABLET 10 Milligram ORAL DAILY Qty = 30 Instructions: . Comments: Last Taken:11/15/17 Time:08:31 AM Montelukast Sodium (Montelukast Sodium) 10 MG TABLET 10 Milligram ORAL AT BEDTIME Qty = 30 Instructions: . Comments: Last Taken:11/14/17 Time:08:26 PM Budesonide/Formoterol Fumarate (Symbicort 160-4.5 Mcg Inhaler) 160 MCG-4.5 MCG/ ACTUATION HFA.AER.AD 2 Puff Inhale through mouth TWICE DAILY Qty = 3 Instructions: . Comments: Last Taken:11/15/17 Time:8:31 AM Albuterol Sulfate (Proair Hfa) 90 MCG HFA.AER.AD 2 Puff Inhale through mouth EVERY 4-6 HOURS NEEDED as needed for RESPIRATORY Qty = 3 Instructions: . Comments: NOT GIVEN IN HOSPITAL Tiotropium [place] (Spiriva) 18 MCG CAP.W.DEV 1 Capsule Inhale through mouth DAILY Qty = 3 Instructions: . Comments: NOT GIVEN IN HOSPITAL Gabapentin (Neurontin) 300 MG CAPSULE 1 Capsule ORAL THREE TIMES DAILY Comments: Last Taken:11/15/17 Time:8:31 AM Sulfamethoxazole/Trimethoprim (Sulfamethoxazole-Tmp Ds Tablet) 800 MG-160 MG TABLET 1 Tablet ORAL DAILY Comments: Last Taken:11/15/17 Time:8:31 AM Start taking the following new medications: Prednisone (Prednisone) 10 MG TABLET 1 Tablet ORAL TWICE DAILY Qty = 90 No Refills Instructions: On Take 11/16-11/22 60 MG 11/23-11/29 50 MG 11/30 continue taking 40mg daily. Benzonatate (Benzonatate) 100 MG CAPSULE 1 Tablet ORAL THREE TIMES DAILY as needed for COUGH Qty = 15 No Refills Instructions: . Comments: Last Taken:11/12/17 Time:12:09 PM Copies To: James CHAPARRO,Socrates Mehta; Lucina CHAPARRO,Quang
== END 2017-11-15 14:05 | DRG 189 ==
LOC: ERH 11:00 → 2NB 13:26 → ERHI 13:26 → ENRESERV 16:13 → ENTRNSPT 17:29 → EDTRNSPT 17:34 → EDTRNSPTSTS 17:34 → 2NB 17:39 → CMPTRNSPT 17:47 → 2NB 11-12 07:26 → ENPENDDIS 11-15 11:41 → 2NB 11-15 14:05
PROVIDERS: Internal Medicine; Physician Assistant
DX: J96.90 Respiratory failure, unspecified, unspecified whether with hypoxia or hypercapnia (principal); J45.901 Unspecified asthma with (acute) exacerbation; J84.116 Cryptogenic organizing pneumonia; Z99.81 Dependence on supplemental oxygen; M79.7 Fibromyalgia; F41.9 Anxiety disorder, unspecified; K58.1 Irritable bowel syndrome with constipation; M26.603 Bilateral temporomandibular joint disorder, unspecified; Z79.51 Long term (current) use of inhaled steroids; Z79.52 Long term (current) use of systemic steroids
CPT/HCPCS: 2NBSP; 36592; 71046; 82436; 87070; 93005; 93010; 94799; 96374; J0456; J0696; J1650; J2920; J2930; J3490; J7040

== ENCOUNTER 2017-12-24 20:24 | Inpatient (IN) | payer OTHER, MEDICARE ==
[~2017-12-24] VITALS: Ht 157.5 cm; Wt 88.2 kg
[~2017-12-24 20:24] MED LIST changes: +BENZONATATE100 M1 PO
--- NOTE | 2017-12-24 20:35 | ED DYSPNEA/ASTHMA COMPLAINT ---
History of Present Illness General Chief Complaint: Dyspnea (COPD, CHF, Other) Stated Complaint: DIFF BREATHING Source: patient, old records Exam Limitations: no limitations Vital Signs & Intake/Output Vital Signs & Intake/Output Vital Signs Date Time Temp Pulse Resp B/P B/P Pulse O2 O2 Flow FiO2 Mean Ox Delivery Rate 12/24 2257 99.6 12/24 2257 81 17 103/56 96 Nasal 4.0L Cannula 12/25 2215 99.0 94 20 99/53 94 Nasal 4.0L Cannula 12/24 2158 100.0 12/24 2049 98 Non 100% ReBreather 12/24 2033 Non ReBreather 12/25 2031 98 Non ReBreather 12/24 2028 100.0 111 25 140/82 85 Room Air Allergies Coded Allergies: No Known Allergies (06/19/17) Reconcile Medications Albuterol Sulfate (Proair Hfa) 90 MCG HFA.AER.AD 2 PUF INH Q4-6 PRN PRN RESPIRATORY . Benzonatate 100 MG CAPSULE 1 TAB PO TID PRN COUGH . Budesonide/Formoterol Fumarate (Symbicort 160-4.5 Mcg Inhaler) 160 MCG-4.5 MCG/ ACTUATION HFA.AER.AD 2 PUF INH BID SOB . Gabapentin (Neurontin) 300 MG CAPSULE 1 CAP PO TID NERVE PAIN (Reported) Loratadine 10 MG TABLET 10 MG PO DAILY ASTHMA . Montelukast Sodium 10 MG TABLET 10 MG PO AT BEDTIME asthma . Oxycodone HCl 30 MG TABLET 1 TAB PO DAILY PRN PAIN (Reported) Paroxetine HCl 30 MG TABLET 1 TAB PO DAILY MENTAL HEALTH (Reported) Prednisone 10 MG TABLET 1 TAB PO BID asthma On Take 11/16-11/22 60 MG 11/23-11/29 50 MG 11/30 continue taking 40mg daily. 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 Trazodone HCl 50 MG TABLET 3 TAB PO QPM SLEEP (Reported) Triage Note: PT TO ED WITH WORSENING SOB BEGINNING TODAY. HX ASTHMA. AUDIBLE WHEEZING ON ARRIVAL, SPEAKING IN SHORT SENTENCES. 02 SAT 85% RA. Triage Nurses Notes Reviewed? yes Onset: Morning Duration: hour(s):, constant, continues in ED Timing: recent history Severity: severe Activities at Onset: rest Prior Episodes/Possible Cause: frequent episodes Modifying Factors: Worsens With: movement. Associated Symptoms: lightheadedness, wheezing, weakness LMP (ages 10-50): unknown : No Patient currently breastfeeds: No HPI: 1 week prior to admission patient reports redness and swelling to left elbow with limited range of motion lasting 5 days. 3 days prior to admission patient complains of nasal congestion and chills. 2 days prior to admission she complains of diarrhea. One day prior to admission patient complains of progressive wheezing shortness of breath with increased work of breathing. She denies fever nausea vomiting abdominal pain chest pain headache dysuria bleeding. Past History Travel History Traveled to [place] past 21 day No Medical History Any Pertinent Medical History? 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 FH: diabetes mellitus UNCLE-MATERNAL (BOOP). GRANDMOTHER-MATERNAL (CHF). Relation not specified for: FH: CAD (coronary artery disease) FH: HTN (hypertension) FH: ovarian cancer FH: uterine cancer Hx Contributory? No Review of Systems Review of Systems Constitutional: Reports: see HPI, chills, malaise. EENTM: Reports: see HPI, nasal congestion. Respiratory: Reports: see HPI, short of breath. Cardiovascular: Reports: no symptoms. GI: Reports: no symptoms. Genitourinary: Reports: no symptoms. Musculoskeletal: Reports: no symptoms. Skin: Reports: no symptoms. Neurological/Psychological: Reports: no symptoms. Hematologic/Endocrine: Reports: no symptoms. Immunologic/Allergic: Reports: no symptoms. All Other Systems: Reviewed and Negative Physical Exam Physical Exam General Appearance: well developed/nourished, alert, awake, anxious, severe distress, obese Head: atraumatic, normal appearance Eyes: Bilateral: normal appearance, PERRL, EOMI. Ears, Nose, Throat: normal pharynx, hearing grossly normal, nasal congestion Neck: normal inspection, supple, full range of motion, lymphadenopathy (R), lymphadenopathy (L) Respiratory: chest non-tender, wheezing, respiratory distress Cardiovascular: regular rate/rhythm, normal peripheral pulses, tachycardia, norml femoral pulses equa Peripheral Pulses: 4+ carotid (R), 4+ carotid (L) Gastrointestinal: normal bowel sounds, soft, non-tender, no organomegaly Extremities: normal inspection, normal capillary refill, normal range of motion, no edema Neurologic/Psych: no motor/sensory deficits, awake, alert, oriented x 3, normal mood/affect, mis specialist II-XII nml as tested Skin: intact, rash, fine erythematous rash over dorsal surface of left forearm and upper arm Lymphatic: adenopathy Core Measures ACS in differential dx? No CVA/TIA Diagnosis No Sepsis Present: No Sepsis Focused Exam Completed? No Progress Differential Diagnosis: bronchitis, COPD, pneumonia Plan of Care: Orders Procedure Date/time Status Regular Diet 12/25 B Active Patient Data 12/24 2234 Active OXYGEN SETUP (GEN) 12/24 2145 Active Saline Lock 12/24 2145 Active Admit to inpatient 12/24 2145 Active Vital Signs 12/24 2145 Active Activity/Ambulation 12/24 2145 Active Code Status 12/24 2145 Active BLOOD CULTURE 12/24 2141 Active BLOOD CULTURE 12/24 2038 Active Intake & Output 12/24 2032 Active ARTERIAL BLOOD GAS (GEN) 12/24 2030 Active MAGNESIUM 12/24 2030 Complete COMPREHENSIVE METABOLIC PANEL 12/24 2030 Complete CBC WITHOUT DIFFERENTIAL 12/24 2030 Complete EKG 12/24 2025 Active Current Medications Sig/Nathan Start time Last Medication Dose Stop Time Status Admin Magnesium Sulfate 1 GM Q2H 12/24 2029 AC 12/24 (Mag Sulfate in D5) 12/25 0029 2152 Dextrose/Water 100 ML (D5W) Laboratory Tests 12/24/172035: Anion Gap 10, Estimated GFR > 60, BUN/Creatinine Ratio 14.3, Glucose 106 H, Calcium 9.3, Magnesium 1.8, Total Bilirubin 0.6, AST 22, ALT 26, Alkaline Phosphatase 105, Total Protein 7.4, Albumin 4.4, Globulin 3.0, Albumin/Globulin Ratio 1.5, CBC w Diff NO MAN DIFF REQ, RBC 5.53 H, MCV 75.9 L, MCH 24.1 L, MCHC 31.7 L, RDW 17.4 H, MPV 8.0, Gran % 62.6, Lymphocytes % 22.5, Monocytes % 7.4, Eosinophils % 7.0 H, Basophils % 0.5, Absolute Granulocytes 8.7 H, Absolute Lymphocytes 3.1, Absolute Monocytes 1.0 H, Absolute Eosinophils 1.0, Absolute Basophils 0.1 Microbiology 12/24 2206 BLOOD: Blood Culture - RECD 12/24 2040 BLOOD: Blood Culture - RECD Diagnostic Imaging: Viewed by Me: Radiology Read. Discussed w/RAD: Radiology Read. CXR Impression: Coarse interstitial opacities again seen at the lung bases. These could be seen acutely in the setting of acute bronchitis or interstitial pneumonitis, chronically with chronic bronchitis or reactive airways disease. Initial ED EKG: normal axis, normal intervals, normal p-waves, normal QRS complex, normal sinus rhythm, no ST T wave changes Prior EKG: unchanged Rhythm Strip: sinus tachycardia Departure Departure Disposition: STILL A PATIENT Condition: Fair Clinical Impression Primary Impression: Asthma with acute exacerbation in adult Secondary Impressions: Pneumonia Referrals: James CHAPARRO,Socrates Mehta (PCP/Family) Departure Forms: Customer Survey General Discharge Information Admission Note Spoke With: Lola Vo MD Documentation of Exam: Documentation of any treatments & extenuating circumstances including Concerns Regarding Discharge (functional status, medication knowledge or non-compliance, living conditions, etc.) that warrant an admission rather than observation: IV antibiotics IV steroids supplemental oxygen serial beta agonist nebs pulmonary evaluation medication adjustment follow cultures continuing care discharge planning Critical Care Note Critical Care Note Critical Care Time: 30-74 min (45)
[2017-12-24 20:44] LABS: ABSOLUTE BASOPHIL COUNT 0.1 /CUMM (0.0-0.2); ABSOLUTE GRANULOCYTE CT 8.7 /CUMM (1.4-6.5); ABSOLUTE LYMPH COUNT 3.1 /CUMM (1.2-3.4); BASOPHIL % 0.5 % (0.0-2.0); GRANULOCYTE % 62.6 % (42.2-75.2); MEAN CORPUSCULAR HGB 24.1 PG (27.0-31.0); MEAN CORPUSCULAR HGB CONC 31.7 G/DL (33.0-37.0); MEAN CORPUSCULAR VOLUME 75.9 FL (81.0-99.0); PLATELET COUNT 438 /CUMM (130-400); RBC DISTRIBUTION WIDTH 17.4 % (11.5-14.5); RED BLOOD CELL CT 5.53 /CUMM (4.20-5.40); WHITE BLOOD CELL COUNT 13.9 /CUMM (4.8-10.8)
--- NOTE | 2017-12-24 21:03 | RADIOLOGY REPORT ---
EXAMINATION: XR PORTABLE CHEST CLINICAL INFORMATION: Wheezing, hypoxia COMPARISON: 11/11/2017 TECHNIQUE: Portable frontal view of the chest was obtained. FINDINGS: Coarse interstitial opacity again seen at the lung bases. No focal consolidation or mass. No pleural effusion or pneumothorax. Cardiac mediastinal silhouette unchanged. Normal pulmonary vascularity. No acute osseous abnormality. IMPRESSION: Coarse interstitial opacities again seen at the lung bases. These could be seen acutely in the setting of acute bronchitis or interstitial pneumonitis, chronically with chronic bronchitis or reactive airways disease.
--- NOTE | 2017-12-24 23:35 | History & Physical ---
Reymundo Gonzalez 12/24/17 2334: General Information and HPI MD Statement: I have seen and personally examined TERESA RODRIGEZ and documented this H&P. The patient is a 37 year old F who presented with a patient stated chief complaint of [asthma exacerbation]. Source of Information: patient, old records Exam Limitations: no limitations History of Present Illness: Ms. Rodrigez is a 37yo F with PMH of Asthma on 2l O2 at night Prednisone 40mg daily, PCP prophylaxis with questionable compliance, Cryptogenic PNA without biopsy, Syncope on Paxil for off label use, Anxiety, TMJ pain who presents with a 1 day history of wheezing, shortness of breath, O2 sats in the 70s, bronchospams that brought her into the ED for treatment. Symptoms were preceded two weeks ago by an erythematous painful rash on her left chest that resolved spontaneously, followed by erythematous painful swollen left wrist 2 weeks ago, erythematous painful swollen "hot" left elbow 1 week ago which resolved today, and three day history of nasal congestion, chills, nausea/vomiting that progressed to a fever of 102 and necessity of using her home oxygen throughout the day to relieve her shortness of breath. Upon presentation she complained of wheezing, shortness of breath, dyspnea with low O2 sats; she states that she has been at the hospital so much as she knew it was time to come in. She does state that she had some night sweats yesterday, also states decreased p.o. intake. She was recently admitted in the hospital on November 15 for an asthma exacerbation, and was also admitted back in September, as well as admissions prior to that in August. She does have cryptogenic pneumonia, which she has not undergone biopsy at, and has missed several appointments outpatient. She was unsure of her PCP prophylaxis that she is on 40 mg daily of steroids, states that she recently completed a 20 day course and was under the impression that she did not have to take any more Bactrim. Past medical history: As above Allergies: NKDA Surgeries: TMJ surgery in 2010, aspiration of TMJ 2014, appendectomy Social history: Denies smoking alcohol use, drug usage, is currently on disability Healthcare maintenance: Follows Dr. 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 Primary care is Dr. Page. Review of systems is negative for any diarrhea or urinary symptoms, sick contacts. Allergies/Medications Allergies: Coded Allergies: No Known Allergies (06/19/17) Past History Travel History Traveled to [place] past 21 day No Medical History Neurological: FIBROMYALGIA EENT: TMJ arthritis s/p jaw surgery at [facility] 2010 ARTHROCENTESIS 2015 (DRAINED/ FLUSHED JAWS) Cardiovascular: syncope (vasovagal(has had cardio eval)) Respiratory: asthma, bronchitis, pneumonia, CRYPTOGENIC ORGANIZING PNA Gastrointestinal: constipation (IBS), irritable bowel syndrome Hepatic: NONE Renal: NONE Musculoskeletal: fibromyalgia Psychiatric: anxiety Endocrine: NONE Blood Disorders: NONE Cancer(s): 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 FH: diabetes mellitus UNCLE-MATERNAL (BOOP). GRANDMOTHER-MATERNAL (CHF). Relation not specified for: FH: CAD (coronary artery disease) FH: HTN (hypertension) FH: ovarian cancer FH: uterine cancer Psychosocial History Who Do You Live With? parent Services at Home: None Primary Language: Chinese Functional Ability ADLs Independent: dressing, eating, toileting, bathing. Ambulation: independent IADLs Independent: shopping, housework, finances, food prep, telephone, transportation , medication admin. Review of Systems Review of Systems Constitutional: Reports: see HPI. Exam & Diagnostic Data Last 24 Hrs of Vital Signs/I&O Vital Signs Date Time Temp Pulse Resp B/P B/P Pulse O2 O2 Flow FiO2 Mean Ox Delivery Rate 12/25 0034 97.5 71 20 100/66 97 Nasal Cannula 12/24 2357 Nasal 4.0L Cannula 12/24 2257 99.6 12/24 2257 81 17 103/56 96 Nasal 4.0L Cannula 12/25 2215 99.0 94 20 99/53 94 Nasal 4.0L Cannula 12/24 2158 100.0 12/24 2049 98 Non 100% ReBreather 12/24 2033 Non ReBreather 12/25 2031 98 Non ReBreather 12/24 2028 100.0 111 25 140/82 85 Room Air Intake & Output 12/25 0800 12/25 0000 12/24 1600 Intake Total 1000 Output Total Balance 1000 Intake, IV 1000 Patient 196 lb Weight Weight Bed scale Measurement Method Physical Exam General Appearance Alert, Oriented X3, Cooperative, No Acute Distress Skin mild texture changes to L elbow w/o rash Skin Temp/Moisture Exam: Warm/Dry Cardiovascular Regular Rate, Normal S1, Normal S2 Lungs LL base + apex exp wheeze; RML RLL wheeze Abdomen Soft, No Tenderness Neurological Strength at 5/5 X4 Ext, Sensation Intact Extremities marked tenderness to L elbow in olecranon fossa; FROM without pain Last 24 Hrs of Labs/Luke: Laboratory Tests 12/24/172035: Anion Gap 10, Estimated GFR > 60, BUN/Creatinine Ratio 14.3, Glucose 106 H, Calcium 9.3, Magnesium 1.8, Total Bilirubin 0.6, AST 22, ALT 26, Alkaline Phosphatase 105, Total Protein 7.4, Albumin 4.4, Globulin 3.0, Albumin/Globulin Ratio 1.5, CBC w Diff NO MAN DIFF REQ, RBC 5.53 H, MCV 75.9 L, MCH 24.1 L, MCHC 31.7 L, RDW 17.4 H, MPV 8.0, Gran % 62.6, Lymphocytes % 22.5, Monocytes % 7.4, Eosinophils % 7.0 H, Basophils % 0.5, Absolute Granulocytes 8.7 H, Absolute Lymphocytes 3.1, Absolute Monocytes 1.0 H, Absolute Eosinophils 1.0, Absolute Basophils 0.1 Microbiology 12/26 255 LOWER RESP: Respiratory Culture - ORD 12/26 255 LOWER RESP: Gram Stain - ORD 12/25 29 URINE ROUT: Legionella Antigen - ORD 12/25 29 URINE ROUT: Streptococcus pneumoniae Antigen (M - ORD 12/24 2206 BLOOD: Blood Culture - RECD 12/24 2040 BLOOD: Blood Culture - RECD Assessment/Plan Assessment: Mrs. Rodrigez is a 37F with PMH peripheral eosinophilia, cryptogenic organizing pneumonia (biopsy not done due to patient's choice), asthma on 2 L of nocturnal oxygen , fibromyalgia, TMJ disorder, on chronic prednisone/Bactrim for PCP PPx, presented to ER w/ SOB/Bronchospasm/O2 desatting to 70% at home, and Tmax 102 at home. 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 w/ Tmax 102 at home) that could contribute to astham exacerbation #Left elbow swelling/erythema questionable bursitis?, resolved on admission #Leukocytosis likely 2/2 chronic prednisone use/reactive #PMH of cryptogenic organizing pneumonia ( biopsy not done yet), asthma on 2 L of nocturnal oxygen , questionable fibromyalgia, TMJ disorder on oxycodone, peripheral eosinophilia, syncopy spells on Paroxetine (off-label) #Asthma exacerbation home prednisone DVT prophylaxis Pharm PPX + ALPS Regular Diet IV Access: Peripheral IV Full Code As Ranked By This Provider Problem List: 1. Asthma with acute exacerbation in adult 2. Acute and chronic respiratory failure with hypoxia Core Measures/Misc (02/09) Acute Coronary Syndrome ACS Diagnosis: No Congestive Heart Failure Congestive Heart Failure Diagnosis No Cerebrovascular Accident CVA/TIA Diagnosis: No VTE (View Protocol) VTE Risk Factors Acute Medical Illness No Mechanical VTE Prophylaxis d/t N/A MechProphylax Ordered No VTE Pharm Prophylaxis d/t NA PharmProphylax ordered Sepsis (View protocol) Sepsis Present: No If YES complete Sepsis Event Note If YES complete Sepsis Event Note Bernie Almaguer 12/24/17 2351: General Information and HPI Allergies/Medications Home Med list Albuterol Sulfate (Proair Hfa) 90 MCG HFA.AER.AD 2 PUF INH Q4-6 PRN PRN RESPIRATORY . Benzonatate 100 MG CAPSULE 1 TAB PO TID PRN COUGH . Budesonide/Formoterol Fumarate (Symbicort 160-4.5 Mcg Inhaler) 160 MCG-4.5 MCG/ ACTUATION HFA.AER.AD 2 PUF INH BID SOB . Gabapentin (Neurontin) 300 MG CAPSULE 1 CAP PO TID NERVE PAIN (Reported) Loratadine 10 MG TABLET 10 MG PO DAILY ASTHMA . Montelukast Sodium 10 MG TABLET 10 MG PO AT BEDTIME asthma . Oxycodone HCl 30 MG TABLET 1 TAB PO DAILY PRN PAIN (Reported) Paroxetine HCl 30 MG TABLET 1 TAB PO DAILY MENTAL HEALTH (Reported) Prednisone 10 MG TABLET 1 TAB PO BID asthma On Take 11/16-11/22 60 MG 11/23-11/29 50 MG 11/30 continue taking 40mg daily. Tiotropium [place] (Spiriva) 18 MCG CAP.W.DEV 1 CAP INH DAILY ASTHMA . Trazodone HCl 50 MG TABLET 3 TAB PO QPM SLEEP (Reported) Core Measures/Misc (02/09) Sepsis (View protocol) If YES complete Sepsis Event Note If YES complete Sepsis Event Note Resident Review Statement Resident Statement: examined this patient, discussed with international accounting manager, agreed with international accounting manager, discussed with family, reviewed EMR data (avail), discussed with nursing , discussed with case mgmt, reviewed images, amended to note Other Findings: Ms Rodrigez is a 36-year-old female with a PMHx of peripheral eosinophilia, cryptogenic organizing pneumonia (biopsy not done due to patient's choice), asthma on 2 L of nocturnal oxygen , fibromyalgia, TMJ disorder, on chronic prednisone/Bactrim for PCP PPx, presented to ER w/ SOB/Bronchospasm/O2 desatting to 70% at home, and Tmax 102 at home. Ptient was recently discharged from [facility] in 11/15/2017 for exacerbation of asthma on tapering dose of steroids currently maintained on prednisone 40 mg daily. She had sudden onset of bronchospasm without particular trigger and has been using her rescue inhaler q4hr around the clock without significant relief. Also noticing fever of 102 and resolved with tylenol, and found herself to be hypoxemic at 70%s on oximetry. She endorsed some non-productive cough with possible sputum at throat. Of note, she also started have swelling L elbow that was "twice the size of normal" without compromised ROM. She put ice on it and resovled gradually and was almost at normal size when she came in. She also c/o subsequent L wrist swelling but now resolved. Patient stated that she was compliant with all her home meds, except that she ran out of Bactrim after 20days from last discharge from [facility], and was unsure whether she should be on it chronically. She also had not followup with Dr. Verdugo but had a pulmonary test at [facility] and she is willing to receive biopsy in near future for diagnose of TEXT TRANSCRIBER. During our clinical interaction, patient denied recent travel/sick contacts, lightheadedness/diaphoresis/night sweat/weight change/Abdominal pain/bowel movement or urinary abnormality, or other skin/musculoskeletal/neurological/mood disorders, or dietary/appetite change. -Smoking: never -Alcohol: never -Rec Drugs: never On admission, Vitals: T-max 100 -> 99.6, tachycardia 101 decreased to 81, RR 25->17, BP 140/82 ->103/56, D satting 85% on room air, was placed on nonrebreather and then decreased nasal cannula 4 L saturating at 96% Physical exam as above, notable bilateral expiratory wheezing more at L lung. L elbow grossly normal on ROM/Strength/sensation, with very tiny rash at skin. 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 w/ Tmax 102 at home) that could contribute to astham exacerbation #Left elbow swelling/erythema questionable bursitis?, resolved on admission #Leukocytosis likely 2/2 chronic prednisone use/reactive #PMH of cryptogenic organizing pneumonia ( biopsy not done yet), asthma on 2 L of nocturnal oxygen , questionable fibromyalgia, TMJ disorder on oxycodone, peripheral eosinophilia, syncopy spells on Paroxetine (off-label) - Admit to general med floor - Vitals per protocol, monitor I&O per protocol. - TRC/DuoNeb/Oxygen per resp therapy, maintain >92% O2 Sat. - Continue Solumedrol 40mg q8 IV and taper per clinical course, hold home meds of oral prednisone. - At this point, alix's CXR was similar from previous CXR, without any new onset fever/productive coughing/SIRS/toxic signs. Patient received Vanco/ ceftazidime x 1 for belle-coverage. At this point, will hold off ABx but only placed on Azithromycin for 5-day course to cover atypical/antiinflammatory. - Would blood culture again if spikes fever. - Hold on Bactrim for now pending pulm input - Pending pulmonary consult in the AM - Pending cultures including blood/urine/sputum, urine antigens, etc. - Pain per pathway DVT prophylaxis Pharm PPX + ALPS Regular Diet IV Access: Peripheral IV Full Code Tavo CHAPARRO,Lola 12/25/17 0326: Core Measures/Misc (02/09) Sepsis (View protocol) If YES complete Sepsis Event Note If YES complete Sepsis Event Note Attending MD Review Statement Attending Statement Attending MD Statement: examined this patient, discuss w/resident/PA/RN ENT, agreed w/resident/PA/RN ENT Attending Assessment/Plan: This is a 37-year-old female with a past medical history significant for asthma diagnosed as a child presenting to the hospital with acute hypoxic respiratory failure secondary to moderate to severe persistent asthma exacerbation likely due to environmental trigger plus or minus acute on chronic bronchitis. Her triggers include humidity and dust. The patient states that she was told a few years ago that she had a diagnosis of cryptogenic pneumonia and was scheduled to have a biopsy which was not done. She is on chronic prednisone and reports subjective fevers at home and had a T-max of 100.0 in the emergency department ( which could be suppressed due to her chronic steroid usage). She also had a chest x-ray done which appeared similar to her prior chest x-ray in October of this year. Patient states that she has had multiple hospitalizations for asthma exacerbation however denies ever being intubated. Her baseline peak flows approximately 300. The patient also described erythema 1-2 days ago over her left olecranon joint which looks unremarkable on physical examination. In the emergency department patient was given vancomycin and ceftaz. Plan: Monitor peak flow DuoNeb every 4 hours [id number] Continue IV Solu-Medrol 40 mg every 8 hours Try to obtain sputum culture Pulmonary consultation in the morning Would discontinue vancomycin and ceftaz but continue azithromycin given recurrent exacerbations Continue Bactrim for PCP PPX
[2017-12-25 00:34] VITALS: BP 100/66
[2017-12-25 06:31] VITALS: BP 110/58
[2017-12-25 07:00] VITALS: BP 110/58
[2017-12-25 08:29] LABS: ABSOLUTE BASOPHIL COUNT 0 /CUMM (0.0-0.2); ABSOLUTE EOSINOPHIL COUNT 0 /CUMM (0.0-0.7); ABSOLUTE LYMPH COUNT 0.9 /CUMM (1.2-3.4); ABSOLUTE MONOCYTE COUNT 0.1 /CUMM (0.10-0.60); BASOPHIL % 0.2 % (0.0-2.0); EOSINOPHIL % 0.1 % (0-5); MEAN CORPUSCULAR HGB 24.7 PG (27.0-31.0); MEAN CORPUSCULAR HGB CONC 32.7 G/DL (33.0-37.0); MEAN CORPUSCULAR VOLUME 75.7 FL (81.0-99.0); MEAN PLATELET VOLUME 8.6 FL (7.4-10.4); PLATELET COUNT 336 /CUMM (130-400); RBC DISTRIBUTION WIDTH 17.2 % (11.5-14.5); RED BLOOD CELL CT 4.82 /CUMM (4.20-5.40)
[2017-12-25 08:41] LABS: HEMATOCRIT 36.5 % (37-47)
[2017-12-25 09:25] LABS: GRANULOCYTE % 90.9 % (42.2-75.2)
--- NOTE | 2017-12-25 10:36 | Cons- Pulmonary ---
General Information and HPI Consulting Request Date of Consult: 12/25/17 Requested By: Dr. Abdullahi Reason for Consult: dyspnea, asthma, cryptogenic organizing pneumonia Source of Information: patient Exam Limitations: no limitations History of Present Illness: 37 year old woman. History of asthma, peripheral eosinophilia. 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 She has been on chronic prednisone and bactrim for prophylaxis. [facility] - being evaluated for 2nd opinion and possible lung bx. Presents for exacerbation of asthma. Treated with steroids with improvement. CXR unchanged eosinophilia Her IgE was elevated as high as 452 (last 120). She may qualify for Xolair therapy in future. She is currently on spiriva, paxil, claritin, proventil, trazadone, singulair, symbicort, bactrim DS (recently ran out and will reorder), roxicodone Lovenox for DVT prophylaxis. No n/v/d/c. No cp. Dyspnea primarily on exertion, wheezing, coughing (dry). Occasional ONEILL, no rashes. She is following at [facility] for a second opinion. She is awaiting a likely open lung biopsy. Allergies/Medications Allergies: Coded Allergies: No Known Allergies (06/19/17) Home Med List: Albuterol Sulfate (Proair Hfa) 90 MCG HFA.AER.AD 2 PUF INH Q4-6 PRN PRN RESPIRATORY . Benzonatate 100 MG CAPSULE 1 TAB PO TID PRN COUGH . Budesonide/Formoterol Fumarate (Symbicort 160-4.5 Mcg Inhaler) 160 MCG-4.5 MCG/ ACTUATION HFA.AER.AD 2 PUF INH BID SOB . Gabapentin (Neurontin) 300 MG CAPSULE 1 CAP PO TID NERVE PAIN (Reported) Loratadine 10 MG TABLET 10 MG PO DAILY ASTHMA . Montelukast Sodium 10 MG TABLET 10 MG PO AT BEDTIME asthma . Oxycodone HCl 30 MG TABLET 1 TAB PO DAILY PRN PAIN (Reported) Paroxetine HCl 30 MG TABLET 1 TAB PO DAILY MENTAL HEALTH (Reported) Prednisone 10 MG TABLET 1 TAB PO BID asthma On Take 11/16-11/22 60 MG 11/23-11/29 50 MG 11/30 continue taking 40mg daily. Tiotropium [place] (Spiriva) 18 MCG CAP.W.DEV 1 CAP INH DAILY ASTHMA . Trazodone HCl 50 MG TABLET 3 TAB PO QPM SLEEP (Reported) Current Medications: Current Medications Sig/Nathan Start time Last Medication Dose Route Stop Time Status Admin Acetaminophen 0 .STK-MED ONE 12/24 2157 DC PO Acetaminophen 975 MG ONCE ONE 12/24 2144 DC 12/24 PO 12/24 Albuterol Sulfate 3 ML TID 12/25 926 AC 12/25 INH 28 Albuterol Sulfate 15 ML ONCE ONE 12/24 2044 DC 12/24 INH 12/24 Azithromycin 250 MG DAILY 12/26 899 AC PO Azithromycin 500 MG ONCE ONE 12/25 299 DC 12/25 Sodium Chloride 250 ML IV 12/25 0359 0430 Benzonatate 100 MG TID PRN 12/25 299 AC PO Ceftazidime 0 .STK-MED ONE 12/24 2241 DC .ROUTE Ceftazidime 1,000 MG ONCE ONE 12/24 2144 DC 12/24 IV 12/24 2145 225 Enoxaparin Sodium 40 MG DAILY 12/25 899 AC 12/25 SC 0840 Gabapentin 300 MG TID 12/25 0249 AC 12/25 PO 0839 Ipratropium [place] 2.5 ML TID 12/25 926 AC 12/25 INH 0928 Ipratropium [place] 2.5 ML ONCE ONE 12/24 2044 DC 12/24 INH 12/24 Loratadine 10 MG DAILY 12/25 899 AC 12/25 PO 0839 Magnesium Sulfate 1 GM Q2H 12/24 2029 DC 12/24 Dextrose/Water 100 ML IV 12/25 28 215 Methylprednisolone 40 MG Q8 12/25 599 AC 12/25 IV 0634 Methylprednisolone 125 MG ONCE ONE 12/24 2029 DC 12/24 IV 12/24 Methylprednisolone 0 .STK-MED ONE 12/24 2029 DC .ROUTE Montelukast Sodium 10 MG AT BEDTIME 12/25 2100 AC PO Oxycodone HCl 30 MG DAILY PRN 12/25 0300 AC 12/25 PO 0320 Oxymetazoline HCl 2 SPRAY ONCE ONE 12/24 2144 DC 12/24 NEETA 12/24 2145 215 Paroxetine HCl 30 MG DAILY 12/25 899 AC 12/25 PO 0839 Sodium Chloride 1,000 ML BOLUS ONE 12/24 2029 DC 12/24 IV 12/24 Trazodone HCl 150 MG QPM 12/25 2100 AC PO Vancomycin HCl 0 .STK-MED ONE 12/24 2241 DC .ROUTE Vancomycin HCl 1,000 MG ONCE ONE 12/24 2144 DC 12/24 Sodium Chloride 250 ML IV 12/25 2243 225 Review of Systems Comments 18 point review of systems was performed and reviewed. Please see pertinent positives and pertinent negatives in the HPI. Otherwise ROS is negative. 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 FH: diabetes mellitus UNCLE-MATERNAL (BOOP). GRANDMOTHER-MATERNAL (CHF). Relation not specified for: FH: CAD (coronary artery disease) FH: HTN (hypertension) FH: ovarian cancer FH: uterine cancer Psychosocial History Where Do You Live? Home Who Do You Live With? parent Services at Home: None Primary Language: Telugu Smoking Status: Never Smoked Functional Ability ADLs Independent: dressing, eating, toileting, bathing. Ambulation: independent IADLs Independent: shopping, housework, finances, food prep, telephone, transportation , medication admin. Exam & Diagnostic Data Last 24 Hrs of Vital Signs/I&O Vital Signs Date Time Temp Pulse Resp B/P B/P Pulse O2 O2 Flow FiO2 Mean Ox Delivery Rate 12/25 0930 Nasal 2.0L Cannula 12/25 08 Nasal 2.0L Cannula 12/25 0700 97.4 60 20 110/58 96 Nasal 2.0L Cannula 12/25 0631 97.4 60 20 110/58 96 Nasal Cannula 12/25 0034 97.5 71 20 100/66 97 Nasal Cannula 12/24 2358 Nasal 4.0L Cannula 12/24 2257 99.6 12/24 2257 81 17 103/56 96 Nasal 4.0L Cannula 12/25 2215 99.0 94 20 99/53 94 Nasal 4.0L Cannula 12/24 2158 100.0 12/24 2049 98 Non 100% ReBreather 12/24 2033 Non ReBreather 12/25 2031 98 Non ReBreather 12/24 2028 100.0 111 25 140/82 85 Room Air Intake & Output 12/25 1600 12/25 0800 12/25 0000 Intake Total 450 1000 Output Total 200 Balance 250 1000 Intake, IV 250 1000 Intake, Oral 200 Output, Urine 200 Patient 196 lb 196 lb Weight Weight Bed scale Measurement Method Physical Exam Other Physical Findings: gen awake and alert heent ncat cvs s1, s2 lungs bilateral rhonchi/wheezing abd soft, elevated bmi ext without edema Last 48 Hrs of Labs/Luke: Laboratory Tests 12/25/17 0718: Anion Gap 7, Estimated GFR > 60, BUN/Creatinine Ratio 16.0, CBC w Diff NO MAN DIFF REQ, RBC 4.82, MCV 75.7 L, MCH 24.7 L, MCHC 32.7 L, RDW 17.2 H, MPV 8.6 , Gran % 90.9 H, Lymphocytes % 8.3 L, Monocytes % 0.5 L, Eosinophils % 0.1, Basophils % 0.2, Absolute Granulocytes 10.0 H, Absolute Lymphocytes 0.9 L, Absolute Monocytes 0.1, Absolute Eosinophils 0, Absolute Basophils 0 12/25/17 0650: Urine Color YEL, Urine Clarity CLEAR, Urine pH 6.5, Ur Specific [place] 1.015, Urine Protein NEG, Urine Ketones 15 H, Urine Nitrite NEG, Urine Bilirubin NEG, Urine Urobilinogen 0.2, Ur Leukocyte Esterase SMALL H, Ur Microscopic SEDIMENT EXAMINED, Urine WBC 1-3 H, Ur Epithelial Cells FEW, Urine Hemoglobin NEG, Urine Glucose NEG 12/24/172035: Anion Gap 10, Estimated GFR > 60, BUN/Creatinine Ratio 14.3, Glucose 106 H, Calcium 9.3, Magnesium 1.8, Total Bilirubin 0.6, AST 22, ALT 26, Alkaline Phosphatase 105, Total Protein 7.4, Albumin 4.4, Globulin 3.0, Albumin/Globulin Ratio 1.5, CBC w Diff NO MAN DIFF REQ, RBC 5.53 H, MCV 75.9 L, MCH 24.1 L, MCHC 31.7 L, RDW 17.4 H, MPV 8.0, Gran % 62.6, Lymphocytes % 22.5, Monocytes % 7.4, Eosinophils % 7.0 H, Basophils % 0.5, Absolute Granulocytes 8.7 H, Absolute Lymphocytes 3.1, Absolute Monocytes 1.0 H, Absolute Eosinophils 1.0, Absolute Basophils 0.1 Microbiology 12/25 0650 URINE ROUT: Legionella Antigen - COMP 12/25 0650 URINE ROUT: Streptococcus pneumoniae Antigen (M - COMP Assessment/Plan Impression/Plan: Impression 37-year-old woman * Exacerbation of asthma * History of cryptogenic pneumonia * eosinophilia/IgE elevation Plan -continue iv solumedrol 40mg iv q8h, taper to q12 tomorrow if no events -add home bactrim for pcp prophylaxis -needs to f/u at [facility] for a second opinion regarding open lung biopsy -TRC/Nebs -she maybe a candidate for biologic tx for her eosinophilia DVT prophylaxis at all times Consult Acknowledgment - Thank you for your consult request.
--- NOTE | 2017-12-25 12:05 | PN- Att Addend ---
See Addendum Attending Addendum Attending Brief Note 37-year-old female with a past medical history of cryptogenic pneumonia, asthma diagnosed as a child presenting to the hospital with acute hypoxic respiratory failure secondary to moderate to severe persistent asthma exacerbation. She is on chronic prednisone at home and follows chikis Verdugo as outpatient. Overnight c/o pain and requesting pain meds. Not in acute distress, no accessory muscles usage. PE unremarkable Chest xray with no acute changes. Her baseline peak flows approximately 300. ASSESSMENT 1. Asthma exacerbation with multple hospitlaisatons 2. chronic pain on opiates dependency 3. H/o Jaw Osteonecrosis 4. Peripheral eosinophilia. 5. Chronic predniosne PLAN Admit to inpatient medical services Monitor peak flow, TRCS Continue IV Solu-Medrol 40 mg every 8 hours, add bactrim. Pain control. Try to obtain sputum culture Pulmonary f/u. Admission Lab Results I reviewed the following labs: Laboratory Tests 12/25 12/25 0718 0650 Chemistry Sodium (137 - 145 mmol/L) 135 L Potassium (3.5 - 5.1 mmol/L) 4.7 Chloride (98 - 107 mmol/L) 99 Carbon Dioxide (22 - 30 mmol/L) 29 Anion Gap (5 - 16) 7 BUN (7 - 17 mg/dL) 8 Creatinine (0.5 - 1.0 mg/dL) 0.5 Estimated GFR (>60 ml/min) > 60 BUN/Creatinine Ratio (7 - 25 %) 16.0 Hematology CBC w Diff NO MAN DIFF REQ WBC (4.8 - 10.8 /CUMM) 11.0 H RBC (4.20 - 5.40 /CUMM) 4.82 Hgb (12.0 - 16.0 G/DL) 11.9 L Hct (37 - 47 %) 36.5 L MCV (81.0 - 99.0 FL) 75.7 L MCH (27.0 - 31.0 PG) 24.7 L MCHC (33.0 - 37.0 G/DL) 32.7 L RDW (11.5 - 14.5 %) 17.2 H Plt Count (130 - 400 /CUMM) 336 MPV (7.4 - 10.4 FL) 8.6 Gran % (42.2 - 75.2 %) 90.9 H Lymphocytes % (20.5 - 51.1 %) 8.3 L Monocytes % (1.7 - 9.3 %) 0.5 L Eosinophils % (0 - 5 %) 0.1 Basophils % (0.0 - 2.0 %) 0.2 Absolute Granulocytes (1.4 - 6.5 /CUMM) 10.0 H Absolute Lymphocytes (1.2 - 3.4 /CUMM) 0.9 L Absolute Monocytes (0.10 - 0.60 /CUMM) 0.1 Absolute Eosinophils (0.0 - 0.7 /CUMM) 0 Absolute Basophils (0.0 - 0.2 /CUMM) 0 Urines Urine Color (YEL,AMB,STR) YEL Urine Clarity (CLEAR) CLEAR Urine pH (5.0 - 8.0) 6.5 Ur Specific [place] (1.001 - 1.035) 1.015 Urine Protein (NEG,<30 MG/DL) NEG Urine Ketones (NEG) 15 H Urine Nitrite (NEG) NEG Urine Bilirubin (NEG) NEG Urine Urobilinogen (0.1 - 1.0 EU/dl) 0.2 Ur Leukocyte Esterase (NEG) SMALL H Ur Microscopic SEDIMENT EXAMINED Urine WBC (0 - 2 /HPF) 1-3 H Ur Epithelial Cells (NONE,FEW) FEW Urine Hemoglobin (NEG) NEG Urine Glucose (N MG/DL) NEG 12/25 2035 Chemistry Sodium (137 - 145 mmol/L) 137 Potassium (3.5 - 5.1 mmol/L) 4.2 Chloride (98 - 107 mmol/L) 95 L Carbon Dioxide (22 - 30 mmol/L) 33 H Anion Gap (5 - 16) 10 BUN (7 - 17 mg/dL) 10 Creatinine (0.5 - 1.0 mg/dL) 0.7 Estimated GFR (>60 ml/min) > 60 BUN/Creatinine Ratio (7 - 25 %) 14.3 Glucose (65 - 99 mg/dL) 106 H Calcium (8.4 - 10.2 mg/dL) 9.3 Magnesium (1.6 - 2.3 mg/dL) 1.8 Total Bilirubin (0.2 - 1.3 mg/dL) 0.6 AST (14 - 36 U/L) 22 ALT (9 - 52 U/L) 26 Alkaline Phosphatase (<127 U/L) 105 Total Protein (6.3 - 8.2 g/dL) 7.4 Albumin (3.5 - 5.0 g/dL) 4.4 Globulin (1.9 - 4.2 gm/dL) 3.0 Albumin/Globulin Ratio (1.1 - 2.2 %) 1.5 Hematology CBC w Diff NO MAN DIFF REQ WBC (4.8 - 10.8 /CUMM) 13.9 H RBC (4.20 - 5.40 /CUMM) 5.53 H Hgb (12.0 - 16.0 G/DL) 13.3 Hct (37 - 47 %) 42.0 MCV (81.0 - 99.0 FL) 75.9 L MCH (27.0 - 31.0 PG) 24.1 L MCHC (33.0 - 37.0 G/DL) 31.7 L RDW (11.5 - 14.5 %) 17.4 H Plt Count (130 - 400 /CUMM) 438 H MPV (7.4 - 10.4 FL) 8.0 Gran % (42.2 - 75.2 %) 62.6 Lymphocytes % (20.5 - 51.1 %) 22.5 Monocytes % (1.7 - 9.3 %) 7.4 Eosinophils % (0 - 5 %) 7.0 H Basophils % (0.0 - 2.0 %) 0.5 Absolute Granulocytes (1.4 - 6.5 /CUMM) 8.7 H Absolute Lymphocytes (1.2 - 3.4 /CUMM) 3.1 Absolute Monocytes (0.10 - 0.60 /CUMM) 1.0 H Absolute Eosinophils (0.0 - 0.7 /CUMM) 1.0 Absolute Basophils (0.0 - 0.2 /CUMM) 0.1 Admission Meds I reviewed the following Meds: Current Medications Sig/Nathan Start time Last Medication Dose Stop Time Status Admin Albuterol Sulfate 3 ML TID 12/25 926 AC 12/25 (Proventil) 927 Azithromycin 250 MG DAILY 12/26 899 AC (Zithromax) Benzonatate 100 MG TID PRN 12/25 0300 AC (Tessalon Capsule) Enoxaparin Sodium 40 MG DAILY 12/25 09 AC 12/25 (Lovenox) 08 Gabapentin 300 MG TID 12/25 0249 AC 12/25 (Neurontin) 0839 Ipratropium [place] 2.5 ML TID 12/25 926 AC 12/25 (Atrovent) 09 Loratadine 10 MG DAILY 12/25 09 AC 12/25 (Claritin) 0839 Methylprednisolone 40 MG Q8 12/25 06 AC 12/25 (Solumedrol) 0634 Montelukast Sodium 10 MG AT BEDTIME 12/25 2100 AC (Singulair) Ondansetron HCl 4 MG Q4-6 PRN PRN 12/25 1045 AC 12/25 (Zofran) 1110 Oxycodone HCl 30 MG DAILY PRN 12/25 0300 AC 12/25 (Roxicodone) 0320 Paroxetine HCl 30 MG DAILY 12/25 0900 AC 12/25 (Paxil) 0839 Trazodone HCl 150 MG QPM 12/25 2100 AC (Desyrel)
[2017-12-25 14:37] VITALS: BP 99/60
--- NOTE | 2017-12-25 21:19 | PN- Housestaff ---
Subjective Follow-up For: Acute asthma exacerbation, cryptogenic pneumonia Complaints: pain scale (0-10) (10) Subjective: Patient seen and examined on bed. She has no acute distress. She is only complaining about jaw pain and shortness of breath when she is moving from her bed. She denies headache, chest pain, palpitation, abdominal pain, constipation , burning micturition, weight loss, fever, chills. Review of Systems Constitutional: Reports: see HPI. Objective Last 24 Hrs of Vital Signs/I&O Vital Signs Date Time Temp Pulse Resp B/P B/P Pulse O2 O2 Flow FiO2 Mean Ox Delivery Rate 12/25 1600 Nasal 1.5L Cannula 12/25 1437 97.8 96 20 99/60 94 Nasal 2.0L Cannula 12/25 0930 Nasal 2.0L Cannula 12/25 08 Nasal 2.0L Cannula 12/25 0700 97.4 60 20 110/58 96 Nasal 2.0L Cannula 12/25 0631 97.4 60 20 110/58 96 Nasal Cannula 12/25 0034 97.5 71 20 100/66 97 Nasal Cannula 12/24 2358 Nasal 4.0L Cannula 12/24 2258 99.6 12/24 2258 81 17 103/56 96 Nasal 4.0L Cannula 12/24 2216 99.0 94 20 99/53 94 Nasal 4.0L Cannula 12/24 2159 100.0 Intake & Output 12/25 1600 12/25 0800 12/25 0000 Intake Total 465 178 9024 Output Total 200 Balance 292 370 6662 Intake, IV 250 1000 Intake, Oral 440 200 Output, Urine 200 Patient 196 lb 196 lb Weight Weight Bed scale Measurement Method Physical Exam General Appearance: Alert, Oriented X3, Cooperative Cardiovascular: Normal S1, Normal S2, No Murmurs Lungs: Normal Air Movement, Bilateral wheeze Abdomen: Normal Bowel Sounds, Soft, No Tenderness, No Hepatospenomegaly, No Masses Current Medications: Current Medications Sig/Nathan Start time Last Medication Dose Route Stop Time Status Admin Acetaminophen 0 .STK-MED ONE 12/24 2157 DC PO Acetaminophen 975 MG ONCE ONE 12/24 2144 DC 12/24 PO 12/24 2145 215 Albuterol Sulfate 3 ML TID 12/25 926 AC 12/25 INH 1353 Azithromycin 250 MG DAILY 12/26 899 AC PO Azithromycin 500 MG ONCE ONE 12/25 0300 DC 12/25 Sodium Chloride 250 ML IV 12/25 0359 0430 Benzonatate 100 MG TID PRN 12/25 0300 AC PO Ceftazidime 0 .STK-MED ONE 12/24 2241 DC .ROUTE Ceftazidime 1,000 MG ONCE ONE 12/24 2145 DC 12/24 IV 12/24 2146 2255 Enoxaparin Sodium 40 MG DAILY 12/25 899 AC 12/25 SC 0840 Gabapentin 300 MG TID 12/25 0249 AC 12/25 PO 1342 Ipratropium [place] 2.5 ML TID 12/25 926 AC 12/25 INH 1354 Loratadine 10 MG DAILY 12/25 09 AC 12/25 PO 0839 Magnesium Sulfate 1 GM Q2H 12/24 2030 DC 12/24 Dextrose/Water 100 ML IV 12/25 0029 2152 Methylprednisolone 40 MG Q8 12/25 06 AC 12/25 IV 1342 Montelukast Sodium 10 MG AT BEDTIME 12/25 2100 AC PO Ondansetron HCl 4 MG Q4-6 PRN PRN 12/25 1045 AC 12/25 IV 1110 Oxycodone HCl 30 MG Q4P PRN 12/25 1745 AC 12/25 PO 1738 Oxycodone HCl 30 MG Q6P PRN 12/25 1730 DC PO Oxycodone HCl 30 MG Q8P PRN 12/25 1215 DC 12/25 PO 1214 Oxycodone HCl 30 MG DAILY PRN 12/25 0300 DC 12/25 PO 0320 Oxymetazoline HCl 2 SPRAY ONCE ONE 12/24 2145 DC 12/24 NEETA 12/24 2146 2159 Paroxetine HCl 30 MG DAILY 12/25 09 AC 12/25 PO 0839 Patient Medication 1 ED ONE ONE 12/25 1430 DC 12/25 Teaching ED 12/25 1431 1739 Sodium Chloride 1,000 ML BOLUS ONE 12/24 2030 DC 12/24 IV 12/24 2128 203 Trazodone HCl 150 MG QPM 12/25 2100 AC PO Trimethoprim/ 1 TAB DAILY 12/25 1206 AC 12/25 Sulfamethoxazole PO 1342 Vancomycin HCl 0 .STK-MED ONE 12/24 224 DC .ROUTE Vancomycin HCl 1,000 MG ONCE ONE 12/24 2144 DC 12/24 Sodium Chloride 250 ML IV 12/24 2693 7361 Last 24 Hrs of Lab/Luke Results Last 24 Hrs of Labs/Mics: Laboratory Tests 12/25/17 0718: Anion Gap 7, Estimated GFR > 60, BUN/Creatinine Ratio 16.0, CBC w Diff NO MAN DIFF REQ, RBC 4.82, MCV 75.7 L, MCH 24.7 L, MCHC 32.7 L, RDW 17.2 H, MPV 8.6 , Gran % 90.9 H, Lymphocytes % 8.3 L, Monocytes % 0.5 L, Eosinophils % 0.1, Basophils % 0.2, Absolute Granulocytes 10.0 H, Absolute Lymphocytes 0.9 L, Absolute Monocytes 0.1, Absolute Eosinophils 0, Absolute Basophils 0 12/25/17 0650: Urine Color YEL, Urine Clarity CLEAR, Urine pH 6.5, Ur Specific [place] 1.015, Urine Protein NEG, Urine Ketones 15 H, Urine Nitrite NEG, Urine Bilirubin NEG, Urine Urobilinogen 0.2, Ur Leukocyte Esterase SMALL H, Ur Microscopic SEDIMENT EXAMINED, Urine WBC 1-3 H, Ur Epithelial Cells FEW, Urine Hemoglobin NEG, Urine Glucose NEG Microbiology 12/25 649 URINE ROUT: Legionella Antigen - COMP 12/25 0550 URINE ROUT: Streptococcus pneumoniae Antigen (M - COMP 12/26 255 LOWER RESP: Respiratory Culture - COLB 12/26 255 LOWER RESP: Gram Stain - COLB 12/24 2206 BLOOD: Blood Culture - RES Assessment/Plan Assessment: 37-year-old female past medical history of peripheral eosinophilia, cryptogenic organizing pneumonia, asthma on 2 L nocturnal oxygen, fibromyalgia, TMJ disorder presented to ER with a complaint of shortness of breath. Problems list: -Asthma exacerbation -TMJ pain -Cryptogenic organizing pneumonia -Chronic prednisone use -Eosinophilia, raised IgE level Plan: -Oxycodone for pain every 4 hourly as needed for pain control. -IV Solu-Medrol 40 mg every Q8 hourly than Q12 from tomorrow. -Admit to inpatient medical service -Sputum culture -Follow-up with pulmonology -DVT prophylaxis -GI prophylaxis -Full code -Monitor peak flow -Normal diet. Problem List: 1. Pneumonia 2. Asthma exacerbation Pain Ratin Pain Location: jaw Pain Goal: Remain pain free Pain Plan: opoid Tomorrow's Labs & Rationales: peak flow
[2017-12-25 21:45] VITALS: BP 120/90
[2017-12-26 06:49] VITALS: BP 100/64
[2017-12-26 08:07] LABS: ABSOLUTE BASOPHIL COUNT 0 /CUMM (0.0-0.2); ABSOLUTE EOSINOPHIL COUNT 0 /CUMM (0.0-0.7); ABSOLUTE GRANULOCYTE CT 11.6 /CUMM (1.4-6.5); ABSOLUTE LYMPH COUNT 1.2 /CUMM (1.2-3.4); ABSOLUTE MONOCYTE COUNT 0.5 /CUMM (0.10-0.60); BASOPHIL % 0.1 % (0.0-2.0); EOSINOPHIL % 0 % (0-5); MEAN CORPUSCULAR HGB 24.5 PG (27.0-31.0); MEAN CORPUSCULAR HGB CONC 32.1 G/DL (33.0-37.0); MEAN CORPUSCULAR VOLUME 76.3 FL (81.0-99.0); MEAN PLATELET VOLUME 9.3 FL (7.4-10.4); PLATELET COUNT 323 /CUMM (130-400); RBC DISTRIBUTION WIDTH 17.6 % (11.5-14.5); RED BLOOD CELL CT 4.59 /CUMM (4.20-5.40); WHITE BLOOD CELL COUNT 13.3 /CUMM (4.8-10.8)
--- NOTE | 2017-12-26 08:29 | PN- Housestaff ---
Subjective Follow-up For: Asthma exacerbation, Jaw pain Complaints: pain scale (0-10) Subjective: Patient seen and examined in bed. There was no overnight event. Her chest pain subsided after changing opioids from q8 to q4. Her shortness of breath improved a lot. She is on 2 L of oxygen oxygen saturation is 91. she denies any fever, chills, chest pain, abdominal pain, burning micturition, palpitations. Review of Systems Constitutional: Reports: see HPI. Objective Last 24 Hrs of Vital Signs/I&O Vital Signs Date Time Temp Pulse Resp B/P B/P Pulse O2 O2 Flow FiO2 Mean Ox Delivery Rate 12/26 1507 9.8 67 16 110/80 96 Nasal Cannula 12/26 0828 91 Nasal 2.0L Cannula 12/26 08 96 Nasal 2.5L Cannula 12/26 0649 98.2 64 20 100/64 93 12/26 0000 Nasal 1.5L Cannula 12/25 2145 98.3 65 12 120/90 97 Nasal Cannula Intake & Output 12/26 1600 12/26 0800 12/26 0000 Intake Total 300 300 Output Total Balance 300 300 Intake, Oral 300 300 Physical Exam General Appearance: Oriented X3, Cooperative Assessment/Plan Assessment: 37-year-old female with past medical history of asthma on 2 L of oxygen and with multiple hospital visit, cryptogenic organizing pneumonia, fibromyalgia, TMJ disorder she presented to ER with shortness of breath since one day and acute hypoxic respiratory failure secondary to asthma exacerbation. Problems list: Asthma exacerbation Hypoxic respiratory failure secondary to asthma TMJ pain management may be because of osteonecrosis of TMJ joint Suspected cryptogenic organizing pneumonia Lungs opacities on chest x-ray without any change compared to the previous. -Ketonuria may be its due to steroid induced hyperglycemia, her random blood sugar is 211 today, we started on low dose regular novolog insuling on sliding scale as needed. Plan: She is improved a lot compared to yesterday. Her jaw pain subsided after increasing opiate dose. Her shortness of breath is on her baseline, she is still on 2 L of oxygen, she used 2 L oxygen at night at home. She is counseled regarding her pain to consult pain management doctor' Pulmonology recommended to reduce solumedrol 40mg iv to q12. Begin prednisone 60 tomorrow for 2 days, then 50mg x 2 days, then maintain on 40mg daily -Bactrim for pcp prophylaxis and make it sure patient has prescription upon discharge for Bactrim -She will follow up [facility] for a second opinion regarding open lung biopsy -He also added that she might need biological agent for her eosinophilia and raised IgE level -Ketonuria may be its due to steroid induced hyperglycemia, her random blood sugar is 211mg/dl today, we started on low dose regular novolog insulin on sliding scale as needed. -Anticipated discharge in next 24 hours -Normal diet -DVT prophylaxsis/GI prophylaxsis Problem List: 1. Fibromyalgia 2. Asthma exacerbation Pain Ratin Pain Location: Jaw Pain Goal: Remain pain free Pain Plan: Pain killer Tomorrow's Labs & Rationales: RBS ACCU check
[2017-12-26 09:29] LABS: GRANULOCYTE % 87.4 % (42.2-75.2)
--- NOTE | 2017-12-26 11:50 | PN- Att Addend ---
Attending Addendum Attending Brief Note 37-year-old female with a past medical history of cryptogenic pneumonia, asthma diagnosed as a child presenting to the hospital with acute hypoxic respiratory failure secondary to moderate to severe persistent asthma exacerbation. She is on chronic prednisone at home and follows chikis Verdugo as outpatient. Feeling better. Not in acute distress, no accessory muscles usage. PE unremarkable Chest xray with no acute changes. Her baseline peak flows approximately 300. ASSESSMENT 1. Asthma exacerbation with multple hospitlaisatons 2. chronic pain on opiates dependency 3. H/o TM joint pain 4. Peripheral eosinophilia. 5. Chronic predniosne PLAN Continue current care Monitor peak flow, TRCS Taper IV Solu-Medrol 40 mg every 12 hours, c/w bactrim. Pain control. Pulmonary f/u. anticipate discharge in next 24-48 hrs Admission Lab Results I reviewed the following labs: Laboratory Tests 12/26 0657 Chemistry Sodium (137 - 145 mmol/L) 137 Potassium (3.5 - 5.1 mmol/L) 4.6 Chloride (98 - 107 mmol/L) 100 Carbon Dioxide (22 - 30 mmol/L) 29 Anion Gap (5 - 16) 7 BUN (7 - 17 mg/dL) 13 Creatinine (0.5 - 1.0 mg/dL) 0.6 Estimated GFR (>60 ml/min) > 60 BUN/Creatinine Ratio (7 - 25 %) 21.7 Hematology CBC w Diff NO MAN DIFF REQ WBC (4.8 - 10.8 /CUMM) 13.3 H RBC (4.20 - 5.40 /CUMM) 4.59 Hgb (12.0 - 16.0 G/DL) 11.2 L Hct (37 - 47 %) 35.0 L MCV (81.0 - 99.0 FL) 76.3 L MCH (27.0 - 31.0 PG) 24.5 L MCHC (33.0 - 37.0 G/DL) 32.1 L RDW (11.5 - 14.5 %) 17.6 H Plt Count (130 - 400 /CUMM) 323 MPV (7.4 - 10.4 FL) 9.3 Gran % (42.2 - 75.2 %) 87.4 H Lymphocytes % (20.5 - 51.1 %) 9.1 L Monocytes % (1.7 - 9.3 %) 3.4 Eosinophils % (0 - 5 %) 0 Basophils % (0.0 - 2.0 %) 0.1 Absolute Granulocytes (1.4 - 6.5 /CUMM) 11.6 H Absolute Lymphocytes (1.2 - 3.4 /CUMM) 1.2 Absolute Monocytes (0.10 - 0.60 /CUMM) 0.5 Absolute Eosinophils (0.0 - 0.7 /CUMM) 0 Absolute Basophils (0.0 - 0.2 /CUMM) 0 Admission Meds I reviewed the following Meds: Current Medications Sig/Nathan Start time Last Medication Dose Stop Time Status Admin Albuterol Sulfate 3 ML TID 12/25 926 AC 12/26 (Proventil) 08 Azithromycin 250 MG DAILY 12/26 09 AC 12/26 (Zithromax) 0843 Benzonatate 100 MG TID PRN 12/25 0300 AC (Tessalon Capsule) Enoxaparin Sodium 40 MG DAILY 12/25 0900 AC 12/26 (Lovenox) 0842 Gabapentin 300 MG TID 12/25 0249 AC 12/26 (Neurontin) 0843 Ipratropium [place] 2.5 ML TID 12/25 0927 AC 12/26 (Atrovent) 0827 Loratadine 10 MG DAILY 12/25 0900 AC 12/26 (Claritin) 0843 Methylprednisolone 40 MG Q12H 12/26 1800 AC (Solumedrol) Montelukast Sodium 10 MG AT BEDTIME 12/25 2100 AC 12/25 (Singulair) 2143 Ondansetron HCl 4 MG Q4-6 PRN PRN 12/25 1045 AC 12/25 (Zofran) 1110 Oxycodone HCl 30 MG Q4P PRN 12/25 1745 AC 12/26 (Roxicodone) 0842 Paroxetine HCl 30 MG DAILY 12/25 0900 AC 12/26 (Paxil) 0843 Trazodone HCl 150 MG QPM 12/25 2100 AC 12/25 (Desyrel) 2144 Trimethoprim/ 1 TAB DAILY 12/25 1206 AC 12/26 Sulfamethoxazole 0842 (Bactrim DS)
--- NOTE | 2017-12-26 12:50 | PN- Pulmonary ---
Subjective HPI/Critical Care Issues: pt seen and examined feeling better will reduce steroids pain is controlled Objective Current Medications: Current Medications Sig/Nathan Start time Last Medication Dose Route Stop Time Status Admin Albuterol Sulfate 3 ML TID 12/25 926 AC 12/26 INH 0827 Azithromycin 250 MG DAILY 12/26 09 AC 12/26 PO 0843 Benzonatate 100 MG TID PRN 12/25 0300 AC PO Enoxaparin Sodium 40 MG DAILY 12/25 09 AC 12/26 SC 0842 Gabapentin 300 MG TID 12/25 0249 AC 12/26 PO 0843 Ipratropium [place] 2.5 ML TID 12/25 926 AC 12/26 INH 0827 Loratadine 10 MG DAILY 12/25 09 AC 12/26 PO 0843 Methylprednisolone 40 MG Q12H 12/26 1800 AC IV Methylprednisolone 40 MG Q8 12/25 0600 DC 12/26 IV 0527 Montelukast Sodium 10 MG AT BEDTIME 12/25 2100 AC 12/25 PO 2143 Ondansetron HCl 4 MG Q4-6 PRN PRN 12/25 1045 AC 12/25 IV 1110 Oxycodone HCl 30 MG Q4P PRN 12/25 1745 AC 12/26 PO 0842 Oxycodone HCl 30 MG Q6P PRN 12/25 1730 DC PO Oxycodone HCl 30 MG Q8P PRN 12/25 1215 DC 12/25 PO 1214 Paroxetine HCl 30 MG DAILY 12/25 09 AC 12/26 PO 0843 Patient Medication 1 ED ONE ONE 12/25 1430 DC 12/25 Teaching ED 12/25 1431 1739 Trazodone HCl 150 MG QPM 12/25 2100 AC 12/25 PO 2144 Trimethoprim/ 1 TAB DAILY 12/25 1206 AC 12/26 Sulfamethoxazole PO 0842 Vital Signs & I&O Last 24 Hrs of Vitals and I&O: Vital Signs Date Time Temp Pulse Resp B/P B/P Pulse O2 O2 Flow FiO2 Mean Ox Delivery Rate 12/27 827 91 Nasal 2.0L Cannula 12/26 0649 98.2 64 20 100/64 93 / 0000 Nasal 1.5L Cannula 12/25 2145 98.3 65 12 120/90 97 Nasal Cannula 12/25 1600 Nasal 1.5L Cannula 12/25 143 97.8 96 20 99/60 94 Nasal 2.0L Cannula Intake & Output 12/26 1600 12/26 0800 12/26 0000 Intake Total 300 300 Output Total Balance 300 300 Intake, Oral 300 300 Exam Other Physical Findings: gen awake and alert heent ncat cvs s1, s2 lungs bilateral rhonchi/wheezing abd soft, elevated bmi ext without edema Results Last 24 Hrs of Lab Results: Laboratory Tests 12/26/17 0657: Anion Gap 7, Estimated GFR > 60, BUN/Creatinine Ratio 21.7, CBC w Diff NO MAN DIFF REQ, RBC 4.59, MCV 76.3 L, MCH 24.5 L, MCHC 32.1 L, RDW 17.6 H, MPV 9.3 , Gran % 87.4 H, Lymphocytes % 9.1 L, Monocytes % 3.4, Eosinophils % 0, Basophils % 0.1, Absolute Granulocytes 11.6 H, Absolute Lymphocytes 1.2, Absolute Monocytes 0.5, Absolute Eosinophils 0, Absolute Basophils 0 Impression/Plan Impression/Plan Impression/Plan: Impression 37-year-old woman * Exacerbation of asthma * History of cryptogenic pneumonia * eosinophilia/IgE elevation Plan -REDUCE solumedrol 40mg iv to q12, begin prednisone 60 tomorrow for 2 days, then 50mg x 2 days, then maintain on 40mg daily -bactrim for pcp prophylaxis - ensure patient has prescription upon discharge -needs to f/u at [facility] for a second opinion regarding open lung biopsy -TRC/Felix -she maybe a candidate for biologic tx for her eosinophilia DVT prophylaxis at all times will sign off for now dc planning when pt ready over the weekend
[2017-12-26 15:07] VITALS: BP 110/80
[2017-12-26 23:08] VITALS: BP 92/60
[2017-12-27] MEDS ORDERED: PREDNISONE20 M1 PO (02:00)
[2017-12-27] MEDS ORDERED: SULFAMETHOXAZO1 EAC1 PO (02:00)
--- NOTE | 2017-12-27 02:02 | Patient Discharge Instructions ---
Discharge Instructions General Discharge Information You were seen/treated for: Asthma Exacerbation Special Instructions: Please follow up with your PCP within 1 week Please follow up with Dr Verdugo within 1 week Please seek medical attention if you have an asthma attack Acute Coronary Syndrome Inclusion Criteria At DC or during hospital stay patient has or had the following: ACS DIAGNOSIS No Discharge Core Measures Meds if any: Prescribed or Continued at Discharge Meds if any: NOT Prescribed or Continued at Discharge Congestive Heart Failure Inclusion Criteria At DC or during hospital stay patient has or had the following: CHF DIAGNOSIS No Discharge Core Measures Meds if any: Prescribed or Continued at Discharge Meds if any: NOT Prescribed or Continued at Discharge Cerebrovascular accident Inclusion Criteria At DC or during hospital stay patient has or had the following: CVA/TIA Diagnosis No Discharge Core Measures Meds if any: Prescribed or Continued at Discharge Meds if any: NOT Prescribed or Continued at Discharge Venous thromboembolism Inclusion Criteria VTE Diagnosis No VTE Type NONE VTE Confirmed by (Test) NONE Discharge Core Measures - Per Current guidelines, there needs to be overlap - treatment for the first 5 days of Warfarin therapy. - If discharged on Warfarin prior to 5 days of - overlap therapy, the patient will need to be - assessed for post discharge needs including - *Post discharge parental anticoagulation - *Warfarin and/or parental anticoagulation education - *Follow up date to check INR post discharge At least 5 days overlap therapy as Inpatient No Meds if any: Prescribed or Continued at Discharge Note: Overlap Therapy is Warfarin and Anticoagulant Meds if any: NOT Prescribed or Continued at Discharge
--- NOTE | 2017-12-27 05:13 | PN- Housestaff ---
Paul CHAPARRO,[facility] 12/27/17 0513: Subjective Follow-up For: Asthma exacerbation Subjective: Pt seen and examined while laying comfortably in bed. She reports that her breathing has improved compared to previous days. She denies any new acute onset of shortness of breath, fever, chills, chest pain, palpitation, cough. Review of Systems Constitutional: Reports: see HPI. Objective Last 24 Hrs of Vital Signs/I&O Vital Signs Date Time Temp Pulse Resp B/P B/P Pulse O2 O2 Flow FiO2 Mean Ox Delivery Rate 12/27 0000 98 Nasal 2.5L Cannula 12/26 2308 98.4 69 16 92/60 98 Nasal 2.5L Cannula 12/26 2120 92 Nasal 2.5L Cannula 12/26 1600 04 Nasal 3.0L Cannula 12/26 1507 9.8 67 16 110/80 96 Nasal Cannula 12/26 0828 91 Nasal 2.0L Cannula 12/26 0800 96 Nasal 2.5L Cannula 12/26 0649 98.2 64 20 100/64 93 Intake & Output 12/27 0800 12/27 0000 12/26 1600 Intake Total 240 Output Total Balance 240 Intake, Oral 240 Number 0 Bowel Movements Physical Exam General Appearance: Alert, Oriented X3, Cooperative Lungs: very minimal wheezes compared to previous days Abdomen: Normal Bowel Sounds, No Tenderness, No Hepatospenomegaly Assessment/Plan Assessment: 37-year-old female with a past medical history of asthma on 2 L oxygen, cryptogenic denies pneumonia, TMJ disorder, fibromyalgia admitted for acute hypoxic respiratory failure due to asthma exacerbation. Impression and plan Asthma exacerbation which appears to be improving compared to previous days. Patient is responding well to steroids, will switch to oral prednisone 60 mg today. She seems to be achieving peak flows of 300 which are her baseline. She will follow taper schedule per pulmonology recommendation which involves patient being on a baseline 40 mg for a while. We have also started her on Bactrim to be taken daily for prophylaxis and prevention of further hospitalization. Patient appears stable and is amenable to discharge with instructions to follow- up with Dr. Verdugo. Problem List: 1. Asthma exacerbation 2. TMJ (temporomandibular joint syndrome) Pain Ratin Pain Location: TMJ Pain Goal: Pain 4 or less Pain Plan: Per pathway Tomorrow's Labs & Rationales: NONE-discharge to [facility] Sarath Abdullahi 12/27/17 1017: Attending MD Review Statement Attending Statement Attending MD Statement: examined this patient, discuss w/resident/PA/[employer] FINAL INSPECTOR, agreed w/resident/PA/[employer] FINAL INSPECTOR, discussed with family, reviewed EMR data (avail), discussed with nursing, discussed with case mgmt, reviewed images, amended to note Attending Assessment/Plan: Patient feeling much better. She uses oxygen at nght time. She is without use of accessory muscles. She can be discharged in stable condition. Follow up with outpatient Dr Verdugo in 1-2 weeks and she has appointment at [facility] for second opinon for lung biopsy for possible cryptogenic penumonia.
[2017-12-27 06:34] VITALS: BP 94/60
--- NOTE | 2017-12-30 15:29 | Discharge Summary ---
Visit Information Visit Dates Admission Date: 12/24/17 Discharge Date: 12/27/17 Hospital Course Course Attending Physician: Sarath Abdullahi MD Primary Care Physician: James CHAPARRO,Socrates Mehta Other Care Providers: Dr. Verdugo corporate communications intern, Consulting Request: Consulting Specialty: Pulmonary Disease Consulting Physician: , for hypoxic respiratory failure Hospital Course: 37-year-old female with past medical history of asthma on 2 L of oxygen and with multiple hospital visit, cryptogenic organizing pneumonia, fibromyalgia, TMJ disorder she presented to ER with shortness of breath since one day and acute hypoxic respiratory failure secondary to asthma exacerbation. Initially his saturation was 70% at emergency after starting her on IV steroids antibiotic and 4L oxygen she started to improving. Shortness of breath improved, she came to her baseline 2 L oxygen which was her baseline at home. She was stable ON 2L. Shifted to general medical floor. Pulmonology consult placed he recommended to reduce solumedrol 40mg iv to q12. Begin prednisone 60 tomorrow for 2 days, then 50mg x 2 days, then maintain on 40mg daily -Bactrim for pneumonia prophylaxis prescribed at discharge. -She advised to follow follow up [facility] for a second opinion regarding open lung biopsy She also had ketonuria may be its due to steroid induced hyperglycemia, her random blood sugar is 211 today, we started on low dose regular novolog insuling on sliding scale as needed. She discussed with primary care physician and discontinue insulin once steroid dose taper off or discontinued. She is doing well. She will be discharged home after touch based with corporate communications intern who recommended to taper off her steroid dose. Allergies: Coded Allergies: No Known Allergies (06/19/17) Disposition Summary Disposition Principal Diagnosis: Acute on chronic respiratory failure secondary to asthma exacerbation. Additional Diagnosis: Acute hypoxic respiratory failure, cryptogenic organizing pneumonia, TMJ disorder,fibromyalgia Discharge Disposition: home or self care Discharge Instructions General Discharge Information Code Status: Full Code Patient's Diet: Regular healthy diet Patient's Activity: Ambulate up to her comfort level. Follow-Up Instructions/Appts: Follow-up with corporate communications intern Follow-up with primary care physician. Follow-up with pain management doctor for opioid prescription. Medications at Discharge Discharge Medications: Stop taking the following medications: Sulfamethoxazole/Trimethoprim (Sulfamethoxazole-Tmp Ds Tablet) 800 MG-160 MG TABLET ORAL DAILY Prednisone (Prednisone) 10 MG TABLET ORAL TWICE DAILY Qty = 90 Continue taking these medications: Trazodone HCl (Trazodone HCl) 50 MG TABLET 3 Tablet ORAL Every night Qty = 30 Comments: Last Taken: 12/27/17 Time: 9:00 PM Paroxetine HCl (Paroxetine HCl) 30 MG TABLET 1 Tablet ORAL DAILY Comments: Last Taken: 12/27/17 Time: 9:00 AM Oxycodone HCl (Oxycodone HCl) 30 MG TABLET 1 Tablet ORAL DAILY as needed for PAIN Comments: Last Taken: 12/27/17 Time: 11:45 AM Loratadine (Loratadine) 10 MG TABLET 10 Milligram ORAL DAILY Qty = 30 Instructions: . Comments: Last Taken: 12/27/17 Time: 9:00 AM Montelukast Sodium (Montelukast Sodium) 10 MG TABLET 10 Milligram ORAL AT BEDTIME Qty = 30 Instructions: . Comments: Last Taken: 12/27/17 Time: 9 PM Budesonide/Formoterol Fumarate (Symbicort 160-4.5 Mcg Inhaler) 160 MCG-4.5 MCG/ ACTUATION HFA.AER.AD 2 Puff Inhale through mouth TWICE DAILY Qty = 3 Instructions: . Comments: NOT TAKEN IN HOSPITAL Albuterol Sulfate (Proair Hfa) 90 MCG HFA.AER.AD 2 Puff Inhale through mouth EVERY 4-6 HOURS NEEDED as needed for RESPIRATORY Qty = 3 Instructions: . Comments: NOT GIVEN IN HOSPITAL Tiotropium [place] (Spiriva) 18 MCG CAP.W.DEV 1 Capsule Inhale through mouth DAILY Qty = 3 Instructions: . Comments: NOT GIVEN IN HOSPITAL Gabapentin (Neurontin) 300 MG CAPSULE 1 Capsule ORAL THREE TIMES DAILY Comments: Last Taken: 12/27/17 Time: 9:00 AM Benzonatate (Benzonatate) 100 MG CAPSULE 1 Tablet ORAL THREE TIMES DAILY as needed for COUGH Qty = 15 Instructions: . Comments: NOT TAKEN IN HOSPITAL Start taking the following new medications: Sulfamethoxazole/Trimethoprim (Sulfamethoxazole-Tmp Ds Tablet) 800 MG-160 MG TABLET 1 Tablet ORAL DAILY Qty = 30 No Refills Prednisone (Prednisone) 20 MG TABLET 20 Milligram ORAL SEE INSTRUCTIONS Qty = 35 No Refills Instructions: 60 MG ON 12/28, 50 MG ON 12/29-12/30, THEN 40 MG DAILY THEREAFTER DISPENSE 30 DS Comments: LAST TAKEN: 60 MG 11/26/17 9 AM Qty = 15 Instructions: . Comments: NOT TAKEN IN HOSPITAL Start taking the following new medications: Sulfamethoxazole/Trimethoprim (Sulfamethoxazole-Tmp Ds Tablet) 800 MG-160 MG TABLET 1 Tablet ORAL DAILY Qty = 30 No Refills Prednisone (Prednisone) 20 MG TABLET 20 Milligram ORAL SEE INSTRUCTIONS Qty = 35 No Refills Instructions: 60 MG ON 12/28, 50 MG ON 12/29-12/30, THEN 40 MG DAILY THEREAFTER DISPENSE 30 DS Comments: LAST TAKEN: 60 MG 11/26/17 9 AM
== END 2017-12-27 14:04 | DRG 202 ==
LOC: ERH 20:24 → ERHI 21:46 → 2NA 21:46 → ENRESERV 23:26 → 2NA 12-25 00:01 → ENPENDDIS 12-27 10:51 → 2NA 12-27 14:04
PROVIDERS: Emergency Medicine; Student in an Organized Health Care Education/Training Program
DX: J45.901 Unspecified asthma with (acute) exacerbation (principal); J96.21 Acute and chronic respiratory failure with hypoxia; J84.116 Cryptogenic organizing pneumonia; Z99.81 Dependence on supplemental oxygen; J20.8 Acute bronchitis due to other specified organisms; D72.1 Eosinophilia; M26.609 Unspecified temporomandibular joint disorder, unspecified side; R55 Syncope and collapse; M79.7 Fibromyalgia; Z79.51 Long term (current) use of inhaled steroids; Z79.52 Long term (current) use of systemic steroids; F41.9 Anxiety disorder, unspecified
CPT/HCPCS: 2NAP; ERO; 36592; 71045; 81001; 81003; 82436; 87040; 87070; 87449; 87450; 93005; 93010; 96374; 96375; 99291; J0456; J0713; J1650; J2405; J2920; J2930; J3370; J7040

== ENCOUNTER 2018-01-20 18:36 | Inpatient (IN) | payer OTHER, MEDICARE ==
[~2018-01-20] VITALS: Ht 160 cm; Wt 88.5 kg
--- NOTE | 2018-01-20 18:52 | ED DYSPNEA/ASTHMA COMPLAINT ---
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 Source: patient, old records Exam Limitations: no limitations Vital Signs & Intake/Output Vital Signs & Intake/Output Vital Signs Date Time Temp Pulse Resp B/P B/P Pulse O2 O2 Flow FiO2 Mean Ox Delivery Rate 01/20 2117 98.8 94 18 145/75 96 Nasal 3.0L Cannula 01/21 1844 90 Nasal 3.0L Cannula 01/20 1837 98.9 120 22 155/77 90 Nasal 3.0L Cannula Allergies Coded Allergies: No Known Allergies (06/19/17) Reconcile Medications Albuterol Sulfate (Proair Hfa) 90 MCG HFA.AER.AD 2 PUF INH Q4-6 PRN PRN RESPIRATORY . Benzonatate 100 MG CAPSULE 1 TAB PO TID PRN COUGH . Budesonide/Formoterol Fumarate (Symbicort 160-4.5 Mcg Inhaler) 160 MCG-4.5 MCG/ ACTUATION HFA.AER.AD 2 PUF INH BID SOB . Gabapentin (Neurontin) 300 MG CAPSULE 1 CAP PO TID NERVE PAIN (Reported) Loratadine 10 MG TABLET 10 MG PO DAILY ASTHMA . Montelukast Sodium 10 MG TABLET 10 MG PO AT BEDTIME asthma . Oxycodone HCl 30 MG TABLET 1 TAB PO DAILY PRN PAIN (Reported) Paroxetine HCl 30 MG TABLET 1 TAB PO DAILY MENTAL HEALTH (Reported) Prednisone 20 MG TABLET 20 MG PO SEE ADMIN CRITERIA ASTHMA 60 MG ON 12/28, 50 MG ON 12/29-12/30, THEN 40 MG DAILY THEREAFTER DISPENSE 30 DS Sulfamethoxazole/Trimethoprim (Sulfamethoxazole-Tmp Ds Tablet) 800 MG-160 MG TABLET 1 TAB PO DAILY PPX Tiotropium [place] (Spiriva) 18 MCG CAP.W.DEV 1 CAP INH DAILY ASTHMA . Trazodone HCl 50 MG TABLET 3 TAB PO QPM SLEEP (Reported) Triage Nurses Notes Reviewed? yes HPI: 37 yo female with a history of cryptogenic organizing pneumonia, fibromyalgia presents today for dyspnea that began mid-day yesterday. 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 Patient states she has a cough, dyspnea, fever, malaise, and hemoptysis. Hemoptysis is mixed in with sputum and is minimal. Currently uses a rescue inhaler and albuterol for acute management but denies being of any help to her this time. She broke out in sweats with a dry cough. States she feels nauseous, had vomit last night, chest pain with inspiration, headadche, and dizziness. Denies any diarrhea and abdominal pain. She also has a diffuse erythematous rash with macules that are 0.3 x 0.3 cm on her left posterior elbow with pain at the base of her olecranon process. She reports that is was more swollen and erythematous last week but has subsided since then, and was treated as potential cellulitis on her prior admission 4 weeks prior. She has a uncle that also passed from [facility]. (Stephan Belcher MD) Past History Medical History Any Pertinent Medical History? 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 FH: diabetes mellitus UNCLE-MATERNAL (BOOP). GRANDMOTHER-MATERNAL (CHF). Relation not specified for: FH: CAD (coronary artery disease) FH: HTN (hypertension) FH: ovarian cancer FH: uterine cancer Hx Contributory? No (Stephan Belcher MD) Review of Systems Review of Systems Constitutional: Reports: no symptoms. EENTM: Reports: no symptoms. Respiratory: Reports: no symptoms. Cardiovascular: Reports: no symptoms. GI: Reports: no symptoms. Genitourinary: Reports: no symptoms. Musculoskeletal: Reports: no symptoms. Skin: Reports: no symptoms. Neurological/Psychological: Reports: no symptoms. Hematologic/Endocrine: Reports: no symptoms. Immunologic/Allergic: Reports: no symptoms. All Other Systems: Reviewed and Negative (Stephan Belcher MD) Physical Exam Physical Exam General Appearance: well developed/nourished, moderate distress Head: atraumatic, normal appearance Eyes: Bilateral: normal appearance. Ears, Nose, Throat: normal pharynx, hearing grossly normal Neck: normal inspection, supple, full range of motion Respiratory: wheezing Cardiovascular: regular rate/rhythm Gastrointestinal: soft, non-tender Extremities: normal inspection, normal range of motion Neurologic/Psych: awake, alert, oriented x 3, normal mood/affect Skin: intact, normal color, warm/dry Core Measures ACS in differential dx? No CVA/TIA Diagnosis No Sepsis Present: No Sepsis Focused Exam Completed? No (Stephan Belcher MD) Progress Differential Diagnosis: asthma, AMI, altitude sickness, bronchitis, costochondritis, CHF, COPD, musculoskeletal pain, pericarditis, pulmonary embolism, pneumonia, pneumothorax, rib fracture, unstable angina Plan of Care: Orders Procedure Date/time Status Regular Diet 01/21 B Active CBC WITHOUT DIFFERENTIAL 01/21 600 Active BASIC ELECTROLYTES PLUS BUN&CR 01/21 600 Active TRC EVALUATION (GEN) 01/20 2101 Active Pathway - chart 01/20 2101 Active House Staff 01/20 2101 Active Patient Data 01/20 2101 Active Code Status 01/20 2101 Active Patient Data 01/20 2001 Active ED Holding Orders 01/20 193 Active Admit to inpatient 01/20 193 Active Vital Signs 01/20 193 Active Code Status 01/20 193 Complete COMPREHENSIVE METABOLIC PANEL 01/20 1838 Complete CBC WITHOUT DIFFERENTIAL 01/20 1838 Complete VTE Mechanical Prophylaxis 01/20 UNK Active Vital Signs 01/20 UNK Active Activity/Ambulation 01/20 UNK Active Current Medications Sig/Nathan Start time Last Medication Dose Stop Time Status Admin Montelukast Sodium 10 MG AT BEDTIME 01/21 2100 AC (Singulair) Trazodone HCl 150 MG QPM 01/21 2100 AC (Desyrel) Enoxaparin Sodium 40 MG DAILY 01/21 900 AC (Lovenox) Loratadine 10 MG DAILY 01/21 900 AC (Claritin) Paroxetine HCl 60 MG DAILY 01/21 900 AC (Paxil) Tiotropium [place] 1 PUF DAILY 01/21 900 AC (Spiriva) Trimethoprim/ 1 TAB DAILY 01/21 900 AC Sulfamethoxazole (Bactrim DS) Methylprednisolone 40 MG Q8 01/20 2200 AC (Solumedrol) Albuterol Sulfate 2 PUF Q4-6 PRN PRN 01/20 2115 AC (Ventolin) Oxycodone HCl 30 MG Q4-6 PRN PRN 01/20 2115 AC (Roxicodone) Budesonide/ 2 PUF BID 01/20 2103 AC Formoterol Fumarate (Symbicort) Gabapentin 300 MG TID 01/20 2103 AC (Neurontin) Acetaminophen 650 MG Q6P PRN 01/20 2100 AC (Tylenol) Laboratory Tests 01/20/181914: Anion Gap 8, Estimated GFR > 60, BUN/Creatinine Ratio 18.6, Glucose 93, Calcium 9.5, Total Bilirubin 0.4, AST 22, ALT 41, Alkaline Phosphatase 95, Total Protein 6.9, Albumin 4.2, Globulin 2.7, Albumin/Globulin Ratio 1.6, CBC w Diff NO MAN DIFF REQ, RBC 5.07, MCV 75.5 L, MCH 24.4 L, MCHC 32.3 L, RDW 17.8 H, MPV 7.7 , Gran % 57.6, Lymphocytes % 27.6, Monocytes % 4.9, Eosinophils % 9.4 H, Basophils % 0.5, Absolute Granulocytes 5.8, Absolute Lymphocytes 2.8, Absolute Monocytes 0.5, Absolute Eosinophils 1.0, Absolute Basophils 0.1 Diagnostic Imaging: Viewed by Me: Radiology Read. Discussed w/RAD: Radiology Read. Radiology Impression: PATIENT: TERESA RODRIGEZ PRESENT AGE: 37 PATIENT ACCOUNT NO: [id number] : 81 LOCATION: [facility] ORDERING PHYSICIAN: Stephan Belcher MD SERVICE DATE: 01/20/18 EXAM TYPE : RAD - XRY-PORTABLE CHEST XRAY EXAMINATION: XR PORTABLE CHEST CLINICAL INFORMATION: History of cryptogenic organizing pneumonia with shortness of breath. COMPARISON: Chest x-ray 12/24/2017 TECHNIQUE: Portable frontal view of the chest was obtained. FINDINGS: Stable cardiac silhouette. The lungs are adequately aerated. Subtle patchy/interstitial opacities are again identified at the lung bases. No gross lobar consolidation. No large pleural effusion or pneumothorax. IMPRESSION: Subtle patchy/interstitial opacities are again identified at the lung bases which remain nonspecific in nature. DICTATED BY: Xavier Cisneros MD DATE/TIME DICTATED:01/20/181904 FUR FARMER:NABOR DATE/TIME TRANSCRIBED:01/20/181904 CONFIDENTIAL, DO NOT COPY WITHOUT APPROPRIATE AUTHORIZATION. <Electronically signed in Other Vendor System> SIGNED BY: Xavier Cisneros MD 01/20/181910 Initial ED EKG: none (Stephan Belcher MD) Departure Departure Disposition: STILL A PATIENT Condition: Stable Clinical Impression Primary Impression: Asthma exacerbation Qualifiers: Asthma severity: moderate Asthma persistence: persistent Qualified Code: J45.41 - Moderate persistent asthma with (acute) exacerbation Secondary Impressions: Cryptogenic organizing pneumonia Referrals: James CHAPARRO,Socrates Mehta (PCP/Family) Departure Forms: Customer Survey General Discharge Information (Stephan Belcher MD) Admission Note Spoke With: Stephan Belcher MD Documentation of Exam: Documentation of any treatments & extenuating circumstances including Concerns Regarding Discharge (functional status, medication knowledge or non-compliance, living conditions, etc.) that warrant an admission rather than observation: [ Patient to be admitted for severe asthma exacerbation in the setting of the profound teeth. Patient will be nebulizer, respiratory therapy, IV steroids, pulmonary consultation is] (Raúl Berman MD) Critical Care Note Critical Care Note Critical Care Time: non-applicable (Raúl Berman MD)
--- NOTE | 2018-01-20 19:11 | RADIOLOGY REPORT ---
EXAMINATION: XR PORTABLE CHEST CLINICAL INFORMATION: History of cryptogenic organizing pneumonia with shortness of breath. COMPARISON: Chest x-ray 12/24/2017 TECHNIQUE: Portable frontal view of the chest was obtained. FINDINGS: Stable cardiac silhouette. The lungs are adequately aerated. Subtle patchy/interstitial opacities are again identified at the lung bases. No gross lobar consolidation. No large pleural effusion or pneumothorax. IMPRESSION: Subtle patchy/interstitial opacities are again identified at the lung bases which remain nonspecific in nature.
[2018-01-20 19:23] LABS: ABSOLUTE BASOPHIL COUNT 0.1 /CUMM (0.0-0.2); ABSOLUTE GRANULOCYTE CT 5.8 /CUMM (1.4-6.5); ABSOLUTE LYMPH COUNT 2.8 /CUMM (1.2-3.4); ABSOLUTE MONOCYTE COUNT 0.5 /CUMM (0.10-0.60); BASOPHIL % 0.5 % (0.0-2.0); EOSINOPHIL % 9.4 % (0-5); GRANULOCYTE % 57.6 % (42.2-75.2); HEMATOCRIT 38.3 % (37-47); MEAN CORPUSCULAR HGB 24.4 PG (27.0-31.0); MEAN CORPUSCULAR HGB CONC 32.3 G/DL (33.0-37.0); MEAN CORPUSCULAR VOLUME 75.5 FL (81.0-99.0); MEAN PLATELET VOLUME 7.7 FL (7.4-10.4); PLATELET COUNT 362 /CUMM (130-400); RBC DISTRIBUTION WIDTH 17.8 % (11.5-14.5); RED BLOOD CELL CT 5.07 /CUMM (4.20-5.40); WHITE BLOOD CELL COUNT 10.1 /CUMM (4.8-10.8)
--- NOTE | 2018-01-20 20:25 | History & Physical ---
Mckenna Vo 01/20/182023: General Information and HPI MD Statement: I have seen and personally examined TERESA RODRIGEZ and documented this H&P. The patient is a 37 year old F who presented with a patient stated chief complaint of SOB and bronchospasm. 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 Pt was doing fine, when yesterday afternoon she started having SOB, trouble breathing & a dry cough. She used her rescue inhaler and it didnt help with her breathing. She attributes her worsening breathing to the inc. himidity & weather. She denies: sick contacts, fever, chills, myalgias, arthralgias, CP, exposure to known allergens(dust) She does complain of a left elbow rashX 2 months. States that her left elbow gets swollen and painful, achy pain, resolves on its own and with analgesics, also has a rash on extensor surface of elbow. She was recently d/c on Dec 27, 2017 after a 3 day hospital stay for acute on chronic respiratory failure secondary to asthma exacerbation. Allergies/Medications Allergies: Coded Allergies: No Known Allergies (06/19/17) Home Med list Albuterol Sulfate (Proair Hfa) 90 MCG HFA.AER.AD 2 PUF INH Q4-6 PRN PRN RESPIRATORY . Benzonatate 100 MG CAPSULE 1 TAB PO TID PRN COUGH . Budesonide/Formoterol Fumarate (Symbicort 160-4.5 Mcg Inhaler) 160 MCG-4.5 MCG/ ACTUATION HFA.AER.AD 2 PUF INH BID SOB . Gabapentin (Neurontin) 300 MG CAPSULE 1 CAP PO TID NERVE PAIN (Reported) Loratadine 10 MG TABLET 10 MG PO DAILY ASTHMA . Montelukast Sodium 10 MG TABLET 10 MG PO AT BEDTIME asthma . Oxycodone HCl 30 MG TABLET 1 TAB PO DAILY PRN PAIN (Reported) Paroxetine HCl 30 MG TABLET 1 TAB PO DAILY MENTAL HEALTH (Reported) Prednisone 20 MG TABLET 20 MG PO SEE ADMIN CRITERIA ASTHMA 60 MG ON 12/28, 50 MG ON 12/29-12/30, THEN 40 MG DAILY THEREAFTER DISPENSE 30 DS Sulfamethoxazole/Trimethoprim (Sulfamethoxazole-Tmp Ds Tablet) 800 MG-160 MG TABLET 1 TAB PO DAILY PPX Tiotropium [place] (Spiriva) 18 MCG CAP.W.DEV 1 CAP INH DAILY ASTHMA . Trazodone HCl 50 MG TABLET 3 TAB PO QPM SLEEP (Reported) Past History Travel History Traveled to [place] past 21 day No Medical History Neurological: FIBROMYALGIA EENT: TMJ arthritis s/p jaw surgery at [facility] 2010 ARTHROCENTESIS 2014 (DRAINED/ FLUSHED JAWS) Cardiovascular: syncope (vasovagal(has had cardio eval)) Respiratory: asthma, bronchitis, pneumonia, CRYPTOGENIC ORGANIZING PNA Gastrointestinal: constipation (IBS), irritable bowel syndrome Hepatic: NONE Renal: NONE Musculoskeletal: fibromyalgia Psychiatric: anxiety Endocrine: NONE Blood Disorders: NONE Cancer(s): NONE 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 FH: diabetes mellitus UNCLE-MATERNAL (BOOP). GRANDMOTHER-MATERNAL (CHF). Relation not specified for: FH: CAD (coronary artery disease) FH: HTN (hypertension) FH: ovarian cancer FH: uterine cancer Psychosocial History Where do you live? Home Who Do You Live With? parent Services at Home: None Primary Language: [place] Smoking Status: Never Smoked ETOH Use: occasional use Illicit Drug Use: denies illicit drug use Functional Ability ADLs Independent: dressing, eating, toileting, bathing. Ambulation: independent IADLs Independent: shopping, housework, finances, food prep, telephone, transportation , medication admin. Review of Systems Review of Systems Constitutional: Reports: see HPI. EENTM: Reports: see HPI. Cardiovascular: Reports: see HPI. Respiratory: Reports: see HPI. GI: Reports: no symptoms. Genitourinary: Reports: no symptoms. Musculoskeletal: Reports: no symptoms. Skin: Reports: see HPI, rash. Neurological/Psychological: Reports: no symptoms. Hematologic/Endocrine: Reports: no symptoms. Immunologic/Allergic: Reports: no symptoms. All Other Systems: Reviewed and Negative Exam & Diagnostic Data Last 24 Hrs of Vital Signs/I&O Vital Signs Date Time Temp Pulse Resp B/P B/P Pulse O2 O2 Flow FiO2 Mean Ox Delivery Rate 01/20 2353 Room Air 3.0L 01/20 2333 98.6 85 20 136/76 96 Nasal 3.0L Cannula 01/20 2117 98.8 94 18 145/75 96 Nasal 3.0L Cannula 01/20 1844 90 Nasal 3.0L Cannula 01/20 1837 98.9 120 22 155/77 90 Nasal 3.0L Cannula Intake & Output 01/21 0800 01/21 0000 01/20 1600 Intake Total Output Total Balance Patient 150 lb Weight Weight Estimated Measurement Method Physical Exam General Appearance Alert, Oriented X3, Cooperative, No Acute Distress Skin Rash: round erythematous lesions on extensor surface of left elbow Skin Temp/Moisture Exam: Cool/Dry Sepsis Skin Exam (color): Normal for Ethnicity HEENT Atraumatic, EOMI, Mucous Membr. moist/pink Neck Supple, No JVD, No thryomegaly Cardiovascular Regular Rate, Normal S1, Normal S2, No Murmurs Lungs Normal Air Movement, b/l wheezes , prolonged expiration Abdomen Normal Bowel Sounds, Soft, No Tenderness, No Hepatospenomegaly, No Masses Neurological Normal Speech, Strength at 5/5 X4 Ext, Normal Tone, Sensation Intact, Cranial Nerves 3-12 NL, Reflexes 2+ Extremities No Clubbing, No Cyanosis, No Edema, Normal Pulses, No Tenderness/ Swelling Vascular Normal Pulses, Pulses Symmetrical Last 24 Hrs of Labs/Luke: Laboratory Tests 01/20/18 1915: Anion Gap 8, Estimated GFR > 60, BUN/Creatinine Ratio 18.6, Glucose 93, Calcium 9.5, Total Bilirubin 0.4, AST 22, ALT 41, Alkaline Phosphatase 95, Total Protein 6.9, Albumin 4.2, Globulin 2.7, Albumin/Globulin Ratio 1.6, CBC w Diff NO MAN DIFF REQ, RBC 5.07, MCV 75.5 L, MCH 24.4 L, MCHC 32.3 L, RDW 17.8 H, MPV 7.7 , Gran % 57.6, Lymphocytes % 27.6, Monocytes % 4.9, Eosinophils % 9.4 H, Basophils % 0.5, Absolute Granulocytes 5.8, Absolute Lymphocytes 2.8, Absolute Monocytes 0.5, Absolute Eosinophils 1.0, Absolute Basophils 0.1 Microbiology 01/20 2230 LOWER RESP: Respiratory Culture - ORD 01/20 2230 LOWER RESP: Gram Stain - ORD Diagnostic Data EKG Results Not done Assessment/Plan Assessment: 37 YO F with a past medical history of asthma(On 40 mg Prednisone PO daily & 2L oxygen at night time at home), 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 Problems: # Acute hypoxic respiratory failure #Asthma exacerbation #TMJ dysfunction A & P: #Acute hypoxic respiratory failure/Asthma exacerbation: The Acute hypoxemic resp failure is most likely due to asthma exacerbation. CXR did not show any acute changes compared to previous CXR. -Monitor VS Q shift -Jo Ann. 3L oxygen NC, keeping sat >95% -Jo Ann. IV Solumedrol 40 mg Q8. -TRC/Nebs -Jo Ann. spiriva & symbicort -Jo Ann. PO BActrim DS for PCP Px -Jo Ann. montelukast -Follow up LRT Cx -Pulm consult #Anxiety/Insomnia: -Jo Ann. Trazodone, Gabapentin #TMJ Dysfunction: Jo Ann. percocet, roxicodone #Fibromyalgia: Jo Ann. gabapentin & paroxetine DVT PX: Enoxaparin & ALPS Diet: Regulart diet Code: Full code As Ranked By This Provider Problem List: 1. Asthma exacerbation Qualifiers Asthma severity: moderate Asthma persistence: persistent Qualified Code: J45.41 - Moderate persistent asthma with (acute) exacerbation 2. TMJ (temporomandibular joint syndrome) 3. Cryptogenic organizing pneumonia 4. Acute and chronic respiratory failure with hypoxia Core Measures/Misc (02/09) Acute Coronary Syndrome ACS Diagnosis: No Congestive Heart Failure Congestive Heart Failure Diagnosis No Cerebrovascular Accident CVA/TIA Diagnosis: No VTE (View Protocol) VTE Risk Factors Obesity No Mechanical VTE Prophylaxis d/t N/A MechProphylax Ordered No VTE Pharm Prophylaxis d/t NA PharmProphylax ordered Sepsis (View protocol) Sepsis Present: No If YES complete Sepsis Event Note If YES complete Sepsis Event Note Patricio Flores 01/20/18 2221: Core Measures/Misc (02/09) Sepsis (View protocol) If YES complete Sepsis Event Note If YES complete Sepsis Event Note Resident Review Statement Resident Statement: examined this patient, discussed with clinical nursing intern, agreed with clinical nursing intern, discussed with family, reviewed EMR data (avail), discussed with nursing , discussed with case mgmt, reviewed images, amended to note Other Findings: This is a 37-year-old female with past medical history significant for cryptogenic organizing pneumonia(NOT biopsy-proven), asthma, fibromyalgia, TMJ arthritis, syncope, IBS, asthma on 2 L nocturnal oxygen, nerve pain, depression, insomnia presented to the hospital with chief complaint of worsening shortness of breath for 1 day. Patient has history of cryptogenic organizing pneumonia not biopsy-proven and asthma, takes 2 L oxygen at nighttime. She was last admitted to [place] in December 2017 for asthma exacerbation. She has been taking prednisone 40 mg daily as per pulmonology recommendations. She is also on Bactrim DS for PCP prophylaxis. Patient reports sudden onset of shortness of breath associated with cough since yesterday morning. Denied any fever, chills, sick contact exposure or recent travel history. She denied any chest pain, palpitations. Of note she uses only 2 L oxygen at nighttime. However her oxygen requirement and inhaler requirement increased since yesterday, which made her to come to the emergency room for further evaluation He denied any nausea, vomiting, abdominal pain, change in bladder or bowel habits. She denies smoking, alcohol abuse, illicit drug abuse. She reports a rash over her left elbow which is chronic. ------- Vitals afebrile, heart rate 120, respiratory 22, blood pressure 155/70, saturating at 90 on room air Labs WBC 10, hemoglobin 12, hematocrit 38, platelets 362 Sodium 139, potassium 4, BUN 13 and creatinine 0.7 Chest x-ray showed some patchy opacities at lung bases #Acute hypoxemic respiratory failure/asthma exacerbation 36-year-old female with extensive past medical history for presumed cryptogenic organizing pneumonia without any biopsy-proven diagnosis and asthma presented in ER for worsening of shortness of breath, dry persistent cough. Patient was significantly tachycardic tachypneic hypoxic at arrival with O2 saturation in 90s, improved with O2 supp by nasal cannula and nebulization treatment. Appears in exacerbation of asthma, chest examination diminished air entry bilaterally, prolonged expiration and wheezing. No evidence of pneumonia on cxr. 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 She is on Bactrim double strength for PCP prophylaxis * Continue Bactrim double strength daily * total respiratory care * Nebulizer treatments as needed and scheduled * Continue Symbicort and spiriva * F/U Lower respiratory culture * Pulmonary consult with Dr. Verdugo * Continue to maintain on supplemental oxygen to maintain saturations were 95%. 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 DVT prophylaxis lovenox Diet regular Code Status Full Code Pain pathway Tylenol and her home medication oxycodone was ordered Stephan Belcher MD 01/21/18 0054: Core Measures/Misc (02/09) Sepsis (View protocol) If YES complete Sepsis Event Note If YES complete Sepsis Event Note Attending MD Review Statement Attending Statement Attending MD Statement: examined this patient, discuss w/resident/PA/DIRECTOR OF STRATEGY & MOBILE, agreed w/resident/PA/DIRECTOR OF STRATEGY & MOBILE, reviewed EMR data (avail) Attending Assessment/Plan: 37F PMH moderate persistent asthma, chronic eosinophilia, cryptogenic organizing pneumonia, fibromyalgia presenting with 2 days of progressive dyspnea on exertion and today with shortness of breath at rest. Patient does not have air conditioning in her home and the temperature was well over 100 degrees today, and her SOB was continually worsening despite multiple home nebulizer and rescue inhaler treatments. On arrival to ED she was SOB and could not speak, hypoxic 82%, with poor air entry. She improved with nebulizer treatments and was able to speak, oxygen saturation came up to 94% on 4L. She remains dyspneic on exertion but comfortable and speaking in full sentences at rest. Bilateral wheezing on exam. 1. Asthma exacerbation 2. Acute hypoxemic respiratory failure Plan - Admit to general medicine - Solumedrol - Nebulizer treatments - Pulmonary consult - Restart home Bactrim - Continue home medications - DVT PPx
[2018-01-21 06:05] LABS: ABSOLUTE BASOPHIL COUNT 0 /CUMM (0.0-0.2); ABSOLUTE EOSINOPHIL COUNT 0 /CUMM (0.0-0.7); ABSOLUTE GRANULOCYTE CT 8.7 /CUMM (1.4-6.5); ABSOLUTE LYMPH COUNT 0.7 /CUMM (1.2-3.4); ABSOLUTE MONOCYTE COUNT 0.1 /CUMM (0.10-0.60); BASOPHIL % 0.1 % (0.0-2.0); EOSINOPHIL % 0.1 % (0-5); HEMATOCRIT 35.2 % (37-47); MEAN CORPUSCULAR HGB 24.6 PG (27.0-31.0); MEAN CORPUSCULAR HGB CONC 32.5 G/DL (33.0-37.0); MEAN CORPUSCULAR VOLUME 75.7 FL (81.0-99.0); MEAN PLATELET VOLUME 7.8 FL (7.4-10.4); PLATELET COUNT 370 /CUMM (130-400); RBC DISTRIBUTION WIDTH 17.9 % (11.5-14.5); RED BLOOD CELL CT 4.65 /CUMM (4.20-5.40); WHITE BLOOD CELL COUNT 9.5 /CUMM (4.8-10.8)
[2018-01-21 06:37] LABS: GRANULOCYTE % 91.6 % (42.2-75.2)
--- NOTE | 2018-01-21 06:56 | PN- Housestaff ---
See Addendum Subjective Follow-up For: Asthma Exacerbation Subjective: Patient seen and examined at bedside this morning. She is currently on 3LNC saturting well. Does not usually use home O2. Patient continues to have a productive cough unable to bring up the contents. She states she has had chest heaviness and a sore throat. Coughing increases her chest discomfort. Review of Systems Constitutional: Denies: see HPI. Objective Last 24 Hrs of Vital Signs/I&O Vital Signs Date Time Temp Pulse Resp B/P B/P Pulse O2 O2 Flow FiO2 Mean Ox Delivery Rate 01/21 08 97.5 100 20 135/80 94 Nasal 3.0L Cannula 01/21 0817 97.5 100 20 135/80 94 Nasal 3.0L Cannula 01/21 0800 94 Nasal 3.0L Cannula 01/21 0546 Room Air 01/21 0536 97.7 88 20 117/65 94 Nasal 3.0L Cannula 01/20 2353 Room Air 3.0L 01/20 2333 98.6 85 20 136/76 96 Nasal 3.0L Cannula 01/20 2117 98.8 94 18 145/75 96 Nasal 3.0L Cannula 01/20 1844 90 Nasal 3.0L Cannula 01/20 1837 98.9 120 22 155/77 90 Nasal 3.0L Cannula Intake & Output 01/21 1600 01/21 0800 01/21 0000 Intake Total Output Total Balance Patient 150 lb Weight Weight Estimated Measurement Method Physical Exam General Appearance: Alert, Oriented X3, Mild Distress HEENT: PERRLA, EOMI, Mucous Membr. moist/pink Cardiovascular: Regular Rate, Normal S1, Normal S2 Lungs: Wheezing in upper and lower lung vargas on 3L NC Abdomen: Normal Bowel Sounds, Soft, No Tenderness Extremities: No Clubbing, No Cyanosis, No Edema Vascular: Normal Pulses, Pulses Symmetrical Current Medications: Current Medications Sig/Nathan Start time Last Medication Dose Route Stop Time Status Admin Acetaminophen 650 MG Q6P PRN 01/20 2100 AC PO Albuterol Sulfate 2 PUF Q4-6 PRN PRN 01/20 2115 AC INH Albuterol Sulfate 3 ML ONCE ONE 01/20 1845 DC 01/20 INH 01/20 184 184 Budesonide/ 2 PUF BID 01/20 210 AC 01/21 Formoterol Fumarate INH 0825 Enoxaparin Sodium 40 MG DAILY 01/21 09 AC 01/21 SC 0825 Gabapentin 0 .STK-MED ONE 01/21 0814 DC PO Gabapentin 0 .STK-MED ONE 01/20 223 DC PO Gabapentin 300 MG TID 01/20 2103 AC 01/21 PO 0825 Ipratropium [place] 2.5 ML ONCE ONE 01/20 1845 DC 01/20 INH 01/20 184 184 Loratadine 10 MG DAILY 01/21 900 AC 01/21 PO 0825 Methylprednisolone 0 .STK-MED ONE 01/21 0541 DC .ROUTE Methylprednisolone 40 MG Q8 01/20 2200 AC 01/21 IV 0546 Methylprednisolone 40 MG ONCE ONE 01/20 193 DC 01/20 IV 01/20 Montelukast Sodium 10 MG AT BEDTIME 01/21 2100 AC PO Morphine Sulfate 0 .STK-MED ONE 01/20 1957 DC .ROUTE Morphine Sulfate 4 MG ONCE ONE 01/20 1930 DC 01/20 IV 01/20 193 1950 Oxycodone HCl 0 .STK-MED ONE 01/22 0815 DC PO Oxycodone HCl 0 .STK-MED ONE 01/20 2345 DC PO Oxycodone HCl 30 MG Q4-6 PRN PRN 01/20 211 AC 01/21 PO 0825 Paroxetine HCl 60 MG DAILY 01/21 900 AC 01/21 PO 0825 Tiotropium [place] 1 PUF DAILY 01/21 09 AC 01/21 INH 0825 Trazodone HCl 150 MG QPM 01/21 2100 DC PO Trazodone HCl 150 MG QPM 01/20 2359 AC 01/20 PO 2346 Trazodone HCl 0 .STK-MED ONE 01/20 2345 DC PO Trimethoprim/ 1 TAB DAILY 01/21 09 AC 01/21 Sulfamethoxazole PO 0825 Last 24 Hrs of Lab/Luke Results Last 24 Hrs of Labs/Mics: Laboratory Tests 01/21/18 0538: Anion Gap 9, Estimated GFR > 60, BUN/Creatinine Ratio 26.0 H, CBC w Diff NO MAN DIFF REQ, RBC 4.65, MCV 75.7 L, MCH 24.6 L, MCHC 32.5 L, RDW 17.9 H, MPV 7.8 , Gran % 91.6 H, Lymphocytes % 7.6 L, Monocytes % 0.6 L, Eosinophils % 0.1, Basophils % 0.1, Absolute Granulocytes 8.7 H, Absolute Lymphocytes 0.7 L, Absolute Monocytes 0.1, Absolute Eosinophils 0, Absolute Basophils 0 01/20/181914: Anion Gap 8, Estimated GFR > 60, BUN/Creatinine Ratio 18.6, Glucose 93, Calcium 9.5, Total Bilirubin 0.4, AST 22, ALT 41, Alkaline Phosphatase 95, Total Protein 6.9, Albumin 4.2, Globulin 2.7, Albumin/Globulin Ratio 1.6, CBC w Diff NO MAN DIFF REQ, RBC 5.07, MCV 75.5 L, MCH 24.4 L, MCHC 32.3 L, RDW 17.8 H, MPV 7.7 , Gran % 57.6, Lymphocytes % 27.6, Monocytes % 4.9, Eosinophils % 9.4 H, Basophils % 0.5, Absolute Granulocytes 5.8, Absolute Lymphocytes 2.8, Absolute Monocytes 0.5, Absolute Eosinophils 1.0, Absolute Basophils 0.1 Microbiology 01/20 2230 LOWER RESP: Respiratory Culture - COLB 01/20 2230 LOWER RESP: Gram Stain - COLB Assessment/Plan Assessment: This is a 37-year-old female with past medical history significant for cryptogenic organizing pneumonia(NOT biopsy-proven), asthma, fibromyalgia, TMJ arthritis, syncope, IBS, asthma on 2 L nocturnal oxygen, nerve pain, depression, insomnia presented to the hospital with chief complaint of worsening shortness of breath for 1 day. Patient has been taking 40mg daily prednisone as per pulmoonology. Takes Bactrim DS for PCP prophylaxis. Cough and SOB for one day since yesterday morning. Oxygen requirement increased since yesterday which made her come to [facility] ED. NO Smoking history. ED: afebrile, heart rate 120, respiratory 22, blood pressure 155/70, saturating at 90 on room air Chest x-ray showed some patchy opacities at lung bases PROBLEM LIST: 1. Asthma Exacerbation 2. Asthma 3. Fibromyalgia/Depression 4. Insomnia 5. TMJ Arthritis Asthma Exacerbation 36-year-old female with extensive past medical history for presumed cryptogenic organizing pneumonia without any biopsy-proven diagnosis and asthma presented in ER for worsening of shortness of breath, dry persistent cough. Patient was significantly tachycardic tachypneic hypoxic at arrival with O2 saturation in 90s, improved with O2 supp by nasal cannula and nebulization treatment. Appears in exacerbation of asthma, chest examination diminished air entry bilaterally, prolonged expiration and wheezing. No evidence of pneumonia on cxr. * IV Methylprednisone 40mg q8 hrs * Continue Bactrim double strength daily for PCP Prophylaxis * Nebulizer treatments as needed and scheduled * Continue Symbicort and spiriva * F/U Lower respiratory culture * Pulmonary contacted with Dr. Verdugo * Continue to maintain on supplemental oxygen for now Asthma * Continue on Albuterol, Symbicort, Spiriva, Montelukast, and Loratidine Fibromyalgia/Depression * Continue on home medication of Paroxetine 60mg daily * Gabapentin q8 hrs Insomnia * Home medication trazadone 150mg at bedtime TMJ Arthritis * continue home medication oxycodone 30 q4-6 prn DVT prophylaxis: lovenox Diet regular Code Status Full Code Pain pathway Tylenol and her home medication oxycodone was ordered Problem List: 1. TMJ (temporomandibular joint syndrome) 2. Cryptogenic organizing pneumonia 3. Asthma exacerbation Pain Ratin Pain Location: pain on cough and congestion Pain Goal: Pain 4 or less Pain Plan: as per pain pathway Tomorrow's Labs & Rationales: cbc bep
[2018-01-21 08:20] VITALS: BP 135/80
--- NOTE | 2018-01-21 13:10 | Cons- Pulmonary ---
General Information and HPI Consulting Request Date of Consult: 01/21/18 Requested By: Dr. Belcher Reason for Consult: dyspnea, hypoxemia, asthma exacerbation Source of Information: patient Exam Limitations: no limitations History of Present Illness: 37 year old woman. Returns to the ER. Recent admission earlier in December. History of asthma, peripheral eosinophilia. 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 She has been on chronic prednisone and bactrim for prophylaxis. [facility] - being evaluated for 2nd opinion and possible lung bx. Presents for exacerbation of asthma. Treated with steroids with improvement. Her air conditioning broke and she has had temperatures into the 100's. CXR with non-specific changes eosinophilia Her IgE was elevated as high as 452 (last 120). She may qualify for Xolair therapy in future. She is currently on spiriva, paxil, claritin, proventil, trazadone, singulair, symbicort, bactrim DS (recently ran out and will reorder), roxicodone Lovenox for DVT prophylaxis. No n/v/d/c. No cp. Dyspnea primarily on exertion, wheezing, coughing (dry). Occasional ONEILL, no rashes. She is following at [facility] for a second opinion. She is awaiting a likely open lung biopsy. Allergies/Medications Allergies: Coded Allergies: No Known Allergies (06/19/17) Home Med List: Albuterol Sulfate (Proair Hfa) 90 MCG HFA.AER.AD 2 PUF INH Q4-6 PRN PRN RESPIRATORY . Benzonatate 100 MG CAPSULE 1 TAB PO TID PRN COUGH . Budesonide/Formoterol Fumarate (Symbicort 160-4.5 Mcg Inhaler) 160 MCG-4.5 MCG/ ACTUATION HFA.AER.AD 2 PUF INH BID SOB . Gabapentin (Neurontin) 300 MG CAPSULE 1 CAP PO TID NERVE PAIN (Reported) Loratadine 10 MG TABLET 10 MG PO DAILY ASTHMA . Montelukast Sodium 10 MG TABLET 10 MG PO AT BEDTIME asthma . Oxycodone HCl 30 MG TABLET 1 TAB PO DAILY PRN PAIN (Reported) Paroxetine HCl 30 MG TABLET 1 TAB PO DAILY MENTAL HEALTH (Reported) Prednisone 20 MG TABLET 20 MG PO SEE ADMIN CRITERIA ASTHMA 60 MG ON 12/28, 50 MG ON 12/29-12/30, THEN 40 MG DAILY THEREAFTER DISPENSE 30 DS Sulfamethoxazole/Trimethoprim (Sulfamethoxazole-Tmp Ds Tablet) 800 MG-160 MG TABLET 1 TAB PO DAILY PPX Tiotropium [place] (Spiriva) 18 MCG CAP.W.DEV 1 CAP INH DAILY ASTHMA . Trazodone HCl 50 MG TABLET 3 TAB PO QPM SLEEP (Reported) Current Medications: Current Medications Sig/Nathan Start time Last Medication Dose Route Stop Time Status Admin Acetaminophen 650 MG Q6P PRN 01/20 2100 AC PO Albuterol Sulfate 2 PUF Q4-6 PRN PRN 01/20 211 AC INH Albuterol Sulfate 3 ML ONCE ONE 01/20 1845 DC 01/20 INH 01/20 184 1843 Budesonide/ 2 PUF BID 01/20 2103 AC 01/21 Formoterol Fumarate INH 0825 Enoxaparin Sodium 40 MG DAILY 01/21 09 AC 01/21 SC 0825 Gabapentin 0 .STK-MED ONE 01/22 0814 DC PO Gabapentin 0 .STK-MED ONE 01/20 2233 DC PO Gabapentin 300 MG TID 01/20 2103 AC 01/21 PO 0825 Ipratropium [place] 2.5 ML ONCE ONE 01/20 1845 DC 01/20 INH 01/20 184 1843 Loratadine 10 MG DAILY 01/21 09 AC 01/21 PO 0825 Methylprednisolone 0 .STK-MED ONE 01/21 0541 DC .ROUTE Methylprednisolone 40 MG Q8 01/20 2200 AC 01/21 IV 0546 Methylprednisolone 40 MG ONCE ONE 01/20 1930 DC 01/20 IV 01/20 Montelukast Sodium 10 MG AT BEDTIME 01/21 2100 AC PO Morphine Sulfate 0 .STK-MED ONE 01/20 1957 DC .ROUTE Morphine Sulfate 4 MG ONCE ONE 01/20 1930 DC 01/20 IV 01/20 193 1950 Oxycodone HCl 0 .STK-MED ONE 01/21 0815 DC PO Oxycodone HCl 0 .STK-MED ONE 01/20 2345 DC PO Oxycodone HCl 30 MG Q4-6 PRN PRN 01/20 2115 AC 01/21 PO 0825 Paroxetine HCl 60 MG DAILY 01/21 09 AC 01/21 PO 0825 Tiotropium [place] 1 PUF DAILY 01/21 09 AC 01/21 INH 0825 Trazodone HCl 150 MG QPM 01/21 2100 DC PO Trazodone HCl 150 MG QPM 01/20 2359 AC 01/20 PO 2346 Trazodone HCl 0 .STK-MED ONE 01/20 2345 DC PO Trimethoprim/ 1 TAB DAILY 01/21 0900 AC 01/21 Sulfamethoxazole PO 0825 Review of Systems Comments 18 point review of systems was performed and reviewed. Please see pertinent positives and pertinent negatives in the HPI. Otherwise ROS is negative. 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 FH: diabetes mellitus UNCLE-MATERNAL (BOOP). GRANDMOTHER-MATERNAL (CHF). Relation not specified for: FH: CAD (coronary artery disease) FH: HTN (hypertension) FH: ovarian cancer FH: uterine cancer Psychosocial History Where Do You Live? Home Who Do You Live With? parent Services at Home: None Primary Language: Kazakh Smoking Status: Never Smoked ETOH Use: occasional use Illicit Drug Use: denies illicit drug use Functional Ability ADLs Independent: dressing, eating, toileting, bathing. Ambulation: independent IADLs Independent: shopping, housework, finances, food prep, telephone, transportation , medication admin. Exam & Diagnostic Data Last 24 Hrs of Vital Signs/I&O Vital Signs Date Time Temp Pulse Resp B/P B/P Pulse O2 O2 Flow FiO2 Mean Ox Delivery Rate 01/22 820 97.5 100 20 135/80 94 Nasal 3.0L Cannula 01/21 0817 97.5 100 20 135/80 94 Nasal 3.0L Cannula 01/21 0800 94 Nasal 3.0L Cannula 01/21 0546 Room Air 01/21 0536 97.7 88 20 117/65 94 Nasal 3.0L Cannula 01/20 2353 Room Air 3.0L 01/20 2333 98.6 85 20 136/76 96 Nasal 3.0L Cannula 01/20 2117 98.8 94 18 145/75 96 Nasal 3.0L Cannula 01/20 1844 90 Nasal 3.0L Cannula 01/20 1837 98.9 120 22 155/77 90 Nasal 3.0L Cannula Intake & Output 01/21 1600 01/21 0800 01/21 0000 Intake Total Output Total Balance Patient 150 lb Weight Weight Estimated Measurement Method Physical Exam Other Physical Findings: gen awake and alert heent ncat, on oxygen cvs s1, s2 lungs bilateral rhonchi/wheezing abd soft, elevated bmi ext without edema Last 48 Hrs of Labs/Luke: Laboratory Tests 01/21/18 0538: Anion Gap 9, Estimated GFR > 60, BUN/Creatinine Ratio 26.0 H, CBC w Diff NO MAN DIFF REQ, RBC 4.65, MCV 75.7 L, MCH 24.6 L, MCHC 32.5 L, RDW 17.9 H, MPV 7.8 , Gran % 91.6 H, Lymphocytes % 7.6 L, Monocytes % 0.6 L, Eosinophils % 0.1, Basophils % 0.1, Absolute Granulocytes 8.7 H, Absolute Lymphocytes 0.7 L, Absolute Monocytes 0.1, Absolute Eosinophils 0, Absolute Basophils 0 01/20/18 1915: Anion Gap 8, Estimated GFR > 60, BUN/Creatinine Ratio 18.6, Glucose 93, Calcium 9.5, Total Bilirubin 0.4, AST 22, ALT 41, Alkaline Phosphatase 95, Total Protein 6.9, Albumin 4.2, Globulin 2.7, Albumin/Globulin Ratio 1.6, CBC w Diff NO MAN DIFF REQ, RBC 5.07, MCV 75.5 L, MCH 24.4 L, MCHC 32.3 L, RDW 17.8 H, MPV 7.7 , Gran % 57.6, Lymphocytes % 27.6, Monocytes % 4.9, Eosinophils % 9.4 H, Basophils % 0.5, Absolute Granulocytes 5.8, Absolute Lymphocytes 2.8, Absolute Monocytes 0.5, Absolute Eosinophils 1.0, Absolute Basophils 0.1 Assessment/Plan Impression/Plan: Impression 37-year-old woman * Exacerbation of asthma * History of cryptogenic pneumonia * eosinophilia/IgE elevation Plan -continue iv solumedrol 40mg iv q8h, taper to q12 tomorrow if no events -continue home bactrim for pcp prophylaxis -needs to f/u at [facility] - has apt 02/05 - for a second opinion regarding open lung biopsy -TRC/Maurilios -she maybe a candidate for biologic tx for her eosinophilia DVT prophylaxis at all times Consult Acknowledgment - Thank you for your consult request.
[2018-01-21 21:34] VITALS: BP 127/89
[2018-01-22 05:45] VITALS: BP 114/72
--- NOTE | 2018-01-22 07:07 | PN- Housestaff ---
Brenna Vaughn 01/22/18 0706: Subjective Follow-up For: Asthma Exacerbatiopn Subjective: Patient on 3L NC saturating well. Claims she feels like she has less wheezing today but continuous to have a non-productive cough. Patient depressed about her illness. She has been advised to follow up outpatient at [facility] on 02/05/18 for a second opinion regarding open lung biopsy and to be evaluated by allergy/immunology given hx of eosinophils and IgE elevation. Otherwise patient denies any fevers, chills, nausea, vomiting. Review of Systems Constitutional: Denies: see HPI. Objective Last 24 Hrs of Vital Signs/I&O Vital Signs Date Time Temp Pulse Resp B/P B/P Pulse O2 O2 Flow FiO2 Mean Ox Delivery Rate 01/22 1440 97.4 104 18 119/90 93 Nasal 3.0L Cannula 01/22 0820 93 Nasal 3.0L Cannula 01/22 0800 98 Nasal 3.0L Cannula 01/22 0545 97.6 85 18 114/72 94 Nasal 3.0L Cannula 01/22 0000 97 Nasal 3.0L Cannula 01/21 2134 97.6 105 22 127/89 97 Nasal 3.0L Cannula 01/21 2117 Nasal 3.0L Cannula 01/21 2116 92 Nasal 3.0L Cannula 01/21 1805 Nasal 3.0L Cannula 01/21 1606 97.5 85 18 115/58 92 Nasal 3.5L Cannula 01/21 1600 Nasal 3.0L Cannula Intake & Output 01/22 1600 01/22 0800 01/22 0000 Intake Total 1000 240 120 Output Total 1 300 Balance 999 240 -180 Intake, IV 20 Intake, Oral 1000 240 100 Number 0 Bowel Movements Output, Stool 1 Output, Urine 300 Patient 195 lb Weight Physical Exam General Appearance: Alert, Oriented X3, Cooperative Skin: No Rashes, No Breakdown HEENT: PERRLA, EOMI, Mucous Membr. moist/pink Cardiovascular: Regular Rate, Normal S1, Normal S2 Lungs: Wheezing present in lung vargas; improved from previous adm Assessment/Plan Assessment: This is a 37-year-old female with past medical history significant for cryptogenic organizing pneumonia(NOT biopsy-proven), asthma, fibromyalgia, TMJ arthritis, syncope, IBS, asthma on 2 L nocturnal oxygen, nerve pain, depression, insomnia presented to the hospital with chief complaint of worsening shortness of breath for 1 day. Patient has been taking 40mg daily prednisone as per pulmoonology. Takes Bactrim DS for PCP prophylaxis. Cough and SOB for one day since yesterday morning. Oxygen requirement increased since yesterday which made her come to the [facility]. NO Smoking history. 01/22: Patient continuing to improve and still on 3L NC. She has been afebrile with normal vital signs. Patients IV solumedrol reduced to 40mg IV q12 today. PROBLEM LIST: 1. Asthma Exacerbation 2. Fibromyalgia/Depression 3. Insomnia 4. TMJ Arthritis Asthma Exacerbation * IV Methylprednisone 40mg q12 Hrs * Continue Bactrim double strength daily for PCP Prophylaxis * Nebulizer treatments as needed and scheduled * Continue Symbicort and spiriva * F/U Lower respiratory culture * Dr. Verdugo following patient closely * Continue to maintain on supplemental oxygen for now * Continue on Albuterol, Symbicort, Spiriva, Montelukast, and Loratidine History of Cryptogenic Pneumonia * needs to f/u at [facility] - has apt 02/05 - for a second opinion regarding open lung biopsy Eosinophilia/IgE Elevation * Make sure to be evaluated by allergy/immunology given hx of eosinophils and IgE elevation on discharge Fibromyalgia/Depression * Continue on home medication of Paroxetine 60mg daily * Gabapentin q8 hrs Insomnia * Home medication trazadone 150mg at bedtime TMJ Arthritis * continue home medication oxycodone 30 q4-6 prn DVT prophylaxis: lovenox Diet regular Code Status Full Code Problem List: 1. Asthma exacerbation 2. Cryptogenic organizing pneumonia 3. TMJ (temporomandibular joint syndrome) Pain Ratin Pain Location: chest tightness on inspiration Pain Goal: Pain 4 or less Pain Plan: as per pain pathway Tomorrow's Labs & Rationales: cbc charop Uriel Nascimento MD 01/22/18 1722: Attending MD Review Statement Attending Statement Attending MD Statement: examined this patient, discuss w/resident/PA/MEDICAL PHOTOGRAPHER, agreed w/resident/PA/MEDICAL PHOTOGRAPHER, reviewed EMR data (avail), discussed with nursing, discussed with case mgmt, amended to note Attending Assessment/Plan: The patient was seen and discussed with house staff. Pulmonary input appreciated. Will continue IV steroids and follow exam. Still with significant wheezing.
--- NOTE | 2018-01-22 13:34 | PN- Pulmonary ---
Subjective HPI/Critical Care Issues: pt seen and examined wheezing improved still with dyspnea, but getting better she is depressed regarding her overall illness progress she also notes a fluctuation/cystic structure ontop of her head by her hair. Objective Current Medications: Current Medications Sig/Nathan Start time Last Medication Dose Route Stop Time Status Admin Acetaminophen 650 MG Q6P PRN 01/20 2100 AC PO Albuterol Sulfate 3 ML BID 01/22 09 AC 01/22 INH 0818 Albuterol Sulfate 2 PUF Q4-6 PRN PRN 01/20 2115 AC INH Budesonide/ 2 PUF BID 01/20 2103 AC 01/22 Formoterol Fumarate INH 0906 Enoxaparin Sodium 40 MG DAILY 01/21 09 AC 01/22 SC 0905 Gabapentin 0 .STK-MED ONE 01/21 1410 DC PO Gabapentin 300 MG TID 01/20 2103 AC 01/22 PO 0903 Loratadine 10 MG DAILY 01/21 09 AC 01/22 PO 0903 Methylprednisolone 40 MG Q8 01/20 2200 AC 01/22 IV 0505 Montelukast Sodium 10 MG AT BEDTIME 01/21 2100 AC 01/21 PO 2157 Oxycodone HCl 0 .STK-MED ONE 01/21 1410 DC PO Oxycodone HCl 30 MG Q4-6 PRN PRN 01/20 2115 AC 01/22 PO 1310 Paroxetine HCl 60 MG DAILY 01/21 09 AC 01/22 PO 0903 Tiotropium [place] 1 PUF DAILY 01/21 09 AC 01/22 INH 0904 Trazodone HCl 150 MG QPM 01/20 2359 AC 01/21 PO 2025 Trimethoprim/ 1 TAB DAILY 01/21 09 AC 01/22 Sulfamethoxazole PO 0903 Vital Signs & I&O Last 24 Hrs of Vitals and I&O: Vital Signs Date Time Temp Pulse Resp B/P B/P Pulse O2 O2 Flow FiO2 Mean Ox Delivery Rate 01/22 0820 93 Nasal 3.0L Cannula 01/22 08 98 Nasal 3.0L Cannula 01/22 0545 97.6 85 18 114/72 94 Nasal 3.0L Cannula 01/22 0000 97 Nasal 3.0L Cannula 01/21 2134 97.6 105 22 127/89 97 Nasal 3.0L Cannula 01/21 2117 Nasal 3.0L Cannula 01/22 2116 92 Nasal 3.0L Cannula 01/21 1805 Nasal 3.0L Cannula 01/21 1606 97.5 85 18 115/58 92 Nasal 3.5L Cannula 01/21 1600 Nasal 3.0L Cannula Intake & Output 01/22 1600 01/22 0800 01/22 0000 Intake Total 240 120 Output Total 300 Balance 240 -180 Intake, IV 20 Intake, Oral 240 100 Number 0 Bowel Movements Output, Urine 300 Patient 195 lb Weight Exam Other Physical Findings: gen awake and alert heent ncat, on oxygen cvs s1, s2 lungs bilateral rhonchi/wheezing abd soft, elevated bmi ext without edema likely cystic/follicular structure top of head by hair. Impression/Plan Impression/Plan Impression/Plan: Impression 37-year-old woman * Exacerbation of asthma * History of cryptogenic pneumonia * eosinophilia/IgE elevation Plan -continue iv solumedrol - REDUCE to 40mg iv q12h -continue home bactrim for pcp prophylaxis -needs to f/u at [facility] - has apt 02/05 - for a second opinion regarding open lung biopsy - also to be evaluated by allergy/immunology given hx of eosinophils and IgE elevation -TRC/Nebs -she maybe a candidate for biologic tx for her eosinophilia DVT prophylaxis at all times Regarding cystic structure if doesn't go away in a few weeks she should see dermatology/surgery
[2018-01-22 14:40] VITALS: BP 119/90
[2018-01-22 21:21] VITALS: BP 106/65
[2018-01-23 05:53] VITALS: BP 122/84
--- NOTE | 2018-01-23 07:34 | PN- Housestaff ---
See Addendum Subjective Follow-up For: Asthma Exacerbation Subjective: Patient seen and examined at bedside this morning. She claims to be feeling great and was not on nasal cannula oxygen during my assessment. Patient claims she is ready to go home. Continues to have cough, but no fevers, chills, nausea, vomiting. Will discharge patient as per Dr. Bhat pulmonology recommendations accordingly. Review of Systems Constitutional: Denies: see HPI. Objective Last 24 Hrs of Vital Signs/I&O Vital Signs Date Time Temp Pulse Resp B/P B/P Pulse O2 O2 Flow FiO2 Mean Ox Delivery Rate 01/23 1033 96 Room Air 01/23 0800 95 Nasal 2.0L Cannula 01/23 0553 97.7 73 18 122/84 93 Room Air 01/23 0000 Nasal 2.0L Cannula 01/221 98.1 81 20 106/65 97 Nasal 3.0L Cannula 01/22 2050 95 Nasal 2.0L Cannula 01/22 1600 95 Nasal 3.0L Cannula 01/22 1440 97.4 104 18 119/90 93 Nasal 3.0L Cannula Intake & Output 01/23 1600 01/23 0800 01/23 0000 Intake Total 720 990 Output Total Balance 720 990 Intake, IV 0 30 Intake, Oral 720 960 Number 0 0 Bowel Movements Physical Exam General Appearance: Alert, Oriented X3, Cooperative Skin: No Rashes, No Breakdown Neck: No JVD, No thryomegaly, +2 Carotid Pulse wo Bruit Cardiovascular: Regular Rate, Normal S1, Normal S2 Lungs: Clear to Auscultation, Normal Air Movement, improved air sounds; minimal wheezing Abdomen: Normal Bowel Sounds, Soft, No Tenderness Vascular: Normal Pulses, Pulses Symmetrical Current Medications: Current Medications Sig/Nathan Start time Last Medication Dose Route Stop Time Status Admin Acetaminophen 650 MG Q6P PRN 01/20 2100 AC PO Albuterol Sulfate 3 ML BID 01/22 INH 1031 Albuterol Sulfate 2 PUF Q4-6 PRN PRN 01/20 2115 AC INH Budesonide/ 2 PUF BID 01/20 Formoterol Fumarate INH 1006 Enoxaparin Sodium 40 MG DAILY 01/21 0901/23 SC 1008 Gabapentin 300 MG TID 01/20 PO 1008 Loratadine 10 MG DAILY 01/21 0900 AC 01/23 PO 1008 Methylprednisolone 40 MG Q12 01/22 2100 AC 01/23 IV 1008 Methylprednisolone 40 MG Q8 01/20 2200 DC 01/22 IV 0505 Montelukast Sodium 10 MG AT BEDTIME 01/21 2100 AC 01/22 PO 2102 Oxycodone HCl 30 MG Q4-6 PRN PRN 01/20 2115 AC 01/23 PO 1008 Paroxetine HCl 60 MG DAILY 01/21 09 AC 01/23 PO 1008 Patient Medication 1 ED ONE ONE 01/22 1530 DC 01/22 Teaching ED 01/22 1531 1520 Tiotropium [place] 1 PUF DAILY 01/21 09 AC 01/23 INH 1007 Trazodone HCl 150 MG QPM 01/20 2359 AC 01/22 PO 2101 Trimethoprim/ 1 TAB DAILY 01/21 09 AC 01/23 Sulfamethoxazole PO 1007 Assessment/Plan Assessment: This is a 37-year-old female with past medical history significant for cryptogenic organizing pneumonia(NOT biopsy-proven), asthma, fibromyalgia, TMJ arthritis, syncope, IBS, asthma on 2 L nocturnal oxygen, nerve pain, depression, insomnia presented to the hospital with chief complaint of worsening shortness of breath for 1 day. Patient has been taking 40mg daily prednisone as per pulmoonology. Takes Bactrim DS for PCP prophylaxis. Cough and SOB for one day since yesterday morning. Oxygen requirement increased since yesterday which made her come to [facility]. NO Smoking history. 01/23: Patient claims she is ready for discharge. Not requiring nasal cannula, saturating well on room air. Breath sounds significantly improved as well as air entry. Patient will be discharged on proper pulmonology recommendations accordingly. Advised to follow up with pulmonology outpatient as well as immunology in terms of her eosinophilia/IgE elevation. PROBLEM LIST: 1. Asthma Exacerbation 2. Eosinophilia/IgE Elevation 3. Fibromyalgia/Depression 4. Insomnia 5. TMJ Arthritis Asthma Exacerbation * Discharging patient on prednisone 60x2, 50x2, remain on 40mg afterwards * Continue Bactrim double strength daily for PCP Prophylaxis * Nebulizer treatments as needed and scheduled * Continue Symbicort and spiriva * Dr. Verdugo following patient closely and okay with discharge plan * Continue to maintain on supplemental oxygen for now * Continue on Albuterol, Symbicort, Spiriva, Montelukast, and Loratidine History of Cryptogenic Pneumonia * Advised that she needs to f/u at [facility] - has apt 02/05 - for a second opinion regarding open lung biopsy Eosinophilia/IgE Elevation * Make sure to be evaluated by allergy/immunology given hx of eosinophils and IgE elevation on discharge Fibromyalgia/Depression * Continue on home medication of Paroxetine 60mg daily * Gabapentin q8 hrs Insomnia * Home medication trazadone 150mg at bedtime TMJ Arthritis * continue home medication oxycodone 30 q4-6 prn DVT prophylaxis: lovenox Diet regular Code Status Full Code Problem List: 1. Asthma exacerbation 2. TMJ (temporomandibular joint syndrome) Pain Ratin Pain Location: no pain reported today Pain Goal: Remain pain free Pain Plan: as per pain pathway Tomorrow's Labs & Rationales: discharge
--- NOTE | 2018-01-23 07:39 | Patient Discharge Instructions ---
Discharge Instructions General Discharge Information You were seen/treated for: Asthma Exacerbation/acute hypoxemic respiratory failure Special Instructions: Please follow up with PCP within 1-2 weeks of discharge. Please follow up with Fermentation Operator within 1-2 weeks of discharge. Continue Prednisone Taper: 60mg a day for 2 days 50mg a day for 2 days remain on 40mg afterwards -continue home bactrim for pcp prophylaxis Patient needs to follow up at [facility] - has apt 02/05 - for a second opinion regarding open lung biopsy Please be evaluated by allergy/immunology given history of eosinophils and IgE elevation Return to ED with worsening shortness of breath, cough, fevers, chills, nauea, vomiting, chest pain Acute Coronary Syndrome Inclusion Criteria At DC or during hospital stay patient has or had the following: ACS DIAGNOSIS No Discharge Core Measures Meds if any: Prescribed or Continued at Discharge Meds if any: NOT Prescribed or Continued at Discharge Congestive Heart Failure Inclusion Criteria At DC or during hospital stay patient has or had the following: CHF DIAGNOSIS No Discharge Core Measures Meds if any: Prescribed or Continued at Discharge Meds if any: NOT Prescribed or Continued at Discharge Cerebrovascular accident Inclusion Criteria At DC or during hospital stay patient has or had the following: CVA/TIA Diagnosis No Discharge Core Measures Meds if any: Prescribed or Continued at Discharge Meds if any: NOT Prescribed or Continued at Discharge Venous thromboembolism Inclusion Criteria VTE Diagnosis No VTE Type NONE VTE Confirmed by (Test) NONE Discharge Core Measures - Per Current guidelines, there needs to be overlap - treatment for the first 5 days of Warfarin therapy. - If discharged on Warfarin prior to 5 days of - overlap therapy, the patient will need to be - assessed for post discharge needs including - *Post discharge parental anticoagulation - *Warfarin and/or parental anticoagulation education - *Follow up date to check INR post discharge At least 5 days overlap therapy as Inpatient No Meds if any: Prescribed or Continued at Discharge Note: Overlap Therapy is Warfarin and Anticoagulant Meds if any: NOT Prescribed or Continued at Discharge
--- NOTE | 2018-01-23 09:10 | PN- Pulmonary ---
Subjective HPI/Critical Care Issues: pt seen and examined feeling better afebrile no n/v/d/c no cp no davis Objective Current Medications: Current Medications Sig/Nathan Start time Last Medication Dose Route Stop Time Status Admin Acetaminophen 650 MG Q6P PRN 01/20 2100 AC PO Albuterol Sulfate 3 ML BID 01/22 09 AC 01/22 INH 2050 Albuterol Sulfate 2 PUF Q4-6 PRN PRN 01/20 2115 AC INH Budesonide/ 2 PUF BID 01/20 2103 AC 01/22 Formoterol Fumarate INH 2100 Enoxaparin Sodium 40 MG DAILY 01/21 09 AC 01/22 SC 0905 Gabapentin 300 MG TID 01/20 2103 AC 01/22 PO 210 Loratadine 10 MG DAILY 01/21 09 AC 01/22 PO 0903 Methylprednisolone 40 MG Q12 01/22 2100 AC 01/22 IV 2101 Methylprednisolone 40 MG Q8 01/20 2200 DC 01/22 IV 0505 Montelukast Sodium 10 MG AT BEDTIME 01/21 2100 AC 01/22 PO 210 Oxycodone HCl 30 MG Q4-6 PRN PRN 01/20 211 AC 01/23 PO 0553 Paroxetine HCl 60 MG DAILY 01/21 09 AC 01/22 PO 0903 Patient Medication 1 ED ONE ONE 01/22 1530 DC 01/22 Teaching ED 01/22 1531 1520 Tiotropium [place] 1 PUF DAILY 01/21 09 AC 01/22 INH 0904 Trazodone HCl 150 MG QPM 01/20 2359 AC 01/22 PO 2101 Trimethoprim/ 1 TAB DAILY 01/21 09 AC 01/22 Sulfamethoxazole PO 0903 Vital Signs & I&O Last 24 Hrs of Vitals and I&O: Vital Signs Date Time Temp Pulse Resp B/P B/P Pulse O2 O2 Flow FiO2 Mean Ox Delivery Rate 01/23 08 95 Nasal 2.0L Cannula 01/23 0553 97.7 73 18 122/84 93 Room Air 01/23 0000 Nasal 2.0L Cannula 01/22 2121 98.1 81 20 106/65 97 Nasal 3.0L Cannula 01/22 2050 95 Nasal 2.0L Cannula 01/22 1600 95 Nasal 3.0L Cannula 01/22 1440 97.4 104 18 119/90 93 Nasal 3.0L Cannula Intake & Output 01/23 1600 01/23 0800 01/23 0000 Intake Total 720 990 Output Total Balance 720 990 Intake, IV 0 30 Intake, Oral 720 960 Number 0 0 Bowel Movements Exam Other Physical Findings: gen awake and alert heent ncat, on oxygen cvs s1, s2 lungs bilateral rhonchi/wheezing abd soft, elevated bmi ext without edema likely cystic/follicular structure top of head by hair. Impression/Plan Impression/Plan Impression/Plan: Impression 37-year-old woman * Exacerbation of asthma * History of cryptogenic pneumonia * eosinophilia/IgE elevation Plan -solumedrol while inpatient - upon dc - prednisone 60x2, 50x2, remain on 40mg afterwards -continue home bactrim for pcp prophylaxis -needs to f/u at [facility] - has apt 02/05 - for a second opinion regarding open lung biopsy - also to be evaluated by allergy/immunology given hx of eosinophils and IgE elevation -TRC/Nebs -she maybe a candidate for biologic tx for her eosinophilia DVT prophylaxis at all times Regarding cystic structure if doesn't go away in a few weeks she should see dermatology/surgery
--- NOTE | 2018-01-23 10:43 | Discharge Summary ---
Visit Information Visit Dates Admission Date: 01/20/18 Discharge Date: 01/23/18 Hospital Course Course Attending Physician: Uriel Nascimento MD Primary Care Physician: James CHAPARRO,Socrates Mehta Hospital Course: HOSPITAL COURSE: This is a 37-year-old female with past medical history significant for cryptogenic organizing pneumonia(NOT biopsy-proven), asthma, eosinophilia/ elevated IgE, fibromyalgia, TMJ arthritis, syncope, IBS, asthma on 2 L nocturnal oxygen, nerve pain, depression, insomnia presented to the hospital with chief complaint of worsening shortness of breath for 1 day. She was last admitted to [facility] in December 2017 for asthma exacerbation. She has been taking prednisone 40 mg daily as per pulmonology recommendations. She is also on Bactrim DS for PCP prophylaxis. Patient reports sudden onset of shortness of breath associated with cough since yesterday morning. Denied any fever, chills, sick contact exposure or recent travel history. She denied any chest pain, palpitations. Of note she uses only 2 L oxygen at nighttime. However her oxygen requirement and inhaler requirement increased since yesterday, which made her to come to the emergency room for further evaluation Follows closely with Dr. Verdugo of Pulmonology PCP: Dr. Ramirez EMERGENCY DEPARTMENT: Vitals afebrile, heart rate 120, respiratory 22, blood pressure 155/70, saturating at 90 on room air Labs WBC 10, hemoglobin 12, hematocrit 38, platelets 362 Sodium 139, potassium 4, BUN 13 and creatinine 0.7 Chest x-ray showed some patchy opacities at lung bases GENERAL MEDICINE ADMISSION: Patient admitted for evaluation and treatment of the following problems: PROBLEM LIST: 1. Asthma Exacerbation 2. Eosinophilia/IgE Elevation 3. Fibromyalgia/Depression 4. Insomnia 5. TMJ Arthritis Asthma Exacerbation/Acute Hypoxemic Respiratory Failure 36-year-old female with extensive past medical history for presumed cryptogenic organizing pneumonia without any biopsy-proven diagnosis and asthma presented in ER for worsening of shortness of breath, dry persistent cough. Patient was significantly tachycardic tachypneic hypoxic at arrival with O2 saturation in 90s, improved with O2 supp by nasal cannula and nebulization treatment. Appeared in exacerbation of asthma, chest examination diminished air entry bilaterally, prolonged expiration and wheezing. No evidence of pneumonia on cxr. Patient initially on nasal cannula 2-3L at begenning of stay and weaned off to room air prior to discharge. Dr. Verdugo with close follow up during her admsssion. Patient continued on home medications. Discharging patient on prednisone 60x2, 50x2, remain on 40mg afterwards Continue Bactrim double strength daily for PCP Prophylaxis. Advised to follow up out patient with Dr. Verdugo accordingly. Patient advised to fullow up at [facility] for opinion on possible lung biopsy. Advised to follow up with allergy/immunology for eosinophilia/IgE Elevation. History of Cryptogenic Pneumonia * Advised that she needs to f/u at [facility] - has apt 02/05 - for a second opinion regarding open lung biopsy Eosinophilia/IgE Elevation * Make sure to be evaluated by allergy/immunology given hx of eosinophils and IgE elevation on discharge Fibromyalgia/Depression * Continue on home medication of Paroxetine 60mg daily * Gabapentin q8 hrs Insomnia * Home medication trazadone 150mg at bedtime TMJ Arthritis * continue home medication oxycodone 30 q4-6 prn DVT prophylaxis: lovenox Diet regular Code Status Full Code Allergies: Coded Allergies: No Known Allergies (06/19/17) Disposition Summary Disposition Principal Diagnosis: Asthma Exacerbation Additional Diagnosis: Eosinophilia/IgE Elevation Discharge Disposition: home or self care Discharge Instructions General Discharge Information Code Status: Full Code Patient's Diet: Regular Diet Patient's Activity: as tolerated Follow-Up Instructions/Appts: Please follow up with PCP within 1-2 weeks of discharge. Please follow up with pulmonology within 1-2 weeks of discharge. Please follow up at [facility] - has apt 02/05 - for a second opinion regarding open lung biopsy Consider evaluation by allergy/immunology given hx of eosinophils and IgE elevation Continue Prednisone Taper as prescribed: prednisone 60x2, 50x2, remain on 40mg afterwards Continue home bactrim for pcp prophylaxis Medications at Discharge Discharge Medications: Stop taking the following medications: Prednisone (Prednisone) 20 MG TABLET ORAL SEE INSTRUCTIONS Qty = 35 Continue taking these medications: Trazodone HCl (Trazodone HCl) 50 MG TABLET 3 Tablet ORAL Every night Qty = 30 Comments: Last Taken: 01/23/18 Time: 9:00 PM Paroxetine HCl (Paroxetine HCl) 30 MG TABLET 1 Tablet ORAL DAILY Comments: Last Taken: 01/23/18 Time: 10:00 AM Oxycodone HCl (Oxycodone HCl) 30 MG TABLET 1 Tablet ORAL EVERY 4-6 HOURS NEEDED as needed for PAIN Comments: Last Taken: 01/23/18 Time: 2:00 PM Loratadine (Loratadine) 10 MG TABLET 10 Milligram ORAL DAILY Qty = 30 Instructions: . Comments: Last Taken: 01/23/18 Time: 10:00 AM Montelukast Sodium (Montelukast Sodium) 10 MG TABLET 10 Milligram ORAL AT BEDTIME Qty = 30 Instructions: . Comments: Last Taken: 01/22/18 Time: 9:00 PM Budesonide/Formoterol Fumarate (Symbicort 160-4.5 Mcg Inhaler) 160 MCG-4.5 MCG/ ACTUATION HFA.AER.AD 2 Puff Inhale through mouth TWICE DAILY Qty = 3 Instructions: . Comments: Last Taken: 01/23/18 Time: 10:00 AM Albuterol Sulfate (Proair Hfa) 90 MCG HFA.AER.AD 2 Puff Inhale through mouth EVERY 4-6 HOURS NEEDED as needed for RESPIRATORY Qty = 3 Instructions: . Comments: NOT GIVEN IN HOSPITAL Tiotropium [place] (Spiriva) 18 MCG CAP.W.DEV 1 Capsule Inhale through mouth DAILY Qty = 3 Instructions: . Comments: Last Taken: 01/23/18 Time: 10:00 AM Gabapentin (Neurontin) 300 MG CAPSULE 1 Capsule ORAL THREE TIMES DAILY Comments: Last Taken: 01/23/18 Time: 2:00 PM Benzonatate (Benzonatate) 100 MG CAPSULE 1 Tablet ORAL THREE TIMES DAILY as needed for COUGH Qty = 15 Instructions: . Comments: NOT TAKEN IN HOSPITAL Sulfamethoxazole/Trimethoprim (Sulfamethoxazole-Tmp Ds Tablet) 800 MG-160 MG TABLET 1 Tablet ORAL DAILY Qty = 30 Comments: Last Taken: 01/23/18 Time: 10:00 AM This prescription has been renewed Start taking the following new medications: Prednisone (Prednisone) 10 MG TABLET 0 ORAL SEE INSTRUCTIONS Qty = 120 No Refills Instructions: START ON 01/24: 60MG FOR 2 DAYS 50MG FOR 2 DAYS 40MG DAILY AFTERWARDS. Comments: NOT GIVEN IN HOSPITAL Copies To: James CHAPARRO,Socrates Mehta; Lucina CHAPARRO,Quang Garcia MD Review Statement Other Findings: Agree with the above summary of care and plan of care upon discharge.
[2018-01-23] MEDS ORDERED: PREDNISONE20 M1 PO (11:32)
[2018-01-23] MEDS ORDERED: PREDNISONE10 M2 PO ×2 (13:12→14:00)
[2018-01-23] MEDS ORDERED: SULFAMETHOXAZO1 EAC1 PO (14:00)
== END 2018-01-23 14:30 | DRG 202 ==
LOC: ERH 18:36 → 2NB 19:39 → ERHI 19:39 → ENRESERV 01-21 18:46 → ENTRNSPT 01-21 19:33 → 2NB 01-21 19:40 → EDTRNSPTSTS 01-21 19:47 → EDTRNSPT 01-21 19:47 → 2NB 01-21 19:55 → CMPTRNSPT 01-21 20:04 → ENPENDDIS 01-23 14:09 → 2NB 01-23 14:30
PROVIDERS: Hospitalist; Internal Medicine
DX: J45.31 Mild persistent asthma with (acute) exacerbation (principal); J96.11 Chronic respiratory failure with hypoxia; J84.116 Cryptogenic organizing pneumonia; D72.1 Eosinophilia; Z99.81 Dependence on supplemental oxygen; M79.7 Fibromyalgia; M26.609 Unspecified temporomandibular joint disorder, unspecified side; K58.1 Irritable bowel syndrome with constipation; F41.9 Anxiety disorder, unspecified; G47.00 Insomnia, unspecified; Z90.49 Acquired absence of other specified parts of digestive tract
CPT/HCPCS: 2NBSP; ERO; 71045; 82436; 87070; J1650; J2920; J2930; J3490

== ENCOUNTER 2018-02-18 13:11 | Inpatient (IN) | payer OTHER, MEDICARE ==
[~2018-02-18] VITALS: Ht 154.9 cm; Wt 91.8 kg
--- NOTE | 2018-02-18 13:25 | ED GENERAL ADULT ---
History of Present Illness General Chief Complaint: Wheezing/Asthma Stated Complaint: ASTHMA Source: patient Exam Limitations: no limitations Vital Signs & Intake/Output Vital Signs & Intake/Output Vital Signs Date Time Temp Pulse Resp B/P B/P Pulse O2 O2 Flow FiO2 Mean Ox Delivery Rate 02/18 190 98.4 91 18 136/96 97 Nasal 2.0L Cannula 02/18 1900 97 Nasal 2.0L Cannula 02/18 1739 94 20 141/77 96 Nasal 2.0L Cannula 02/18 1350 95 Nasal 2.0L Cannula 02/18 1342 96 Nasal 6.0L Cannula 02/18 1326 96 Nasal 6.0L Cannula 02/18 1320 98.4 122 18 113/84 86 Room Air Allergies Coded Allergies: No Known Allergies (06/19/17) Reconcile Medications Albuterol Sulfate (Proair Hfa) 90 MCG HFA.AER.AD 2 PUF INH Q4-6 PRN PRN RESPIRATORY . Budesonide/Formoterol Fumarate (Symbicort 160-4.5 Mcg Inhaler) 160 MCG-4.5 MCG/ ACTUATION HFA.AER.AD 2 PUF INH BID SOB . Gabapentin (Neurontin) 300 MG CAPSULE 1 CAP PO TID NERVE PAIN (Reported) Loratadine 10 MG TABLET 10 MG PO DAILY ASTHMA . Montelukast Sodium 10 MG TABLET 10 MG PO AT BEDTIME asthma . Oxycodone HCl 30 MG TABLET 1 TAB PO Q4-6 PRN PRN PAIN (Reported) Paroxetine HCl 30 MG TABLET 1 TAB PO DAILY MENTAL HEALTH (Reported) Prednisone 20 MG TABLET 2 TAB PO DAILY ASTHMA (Reported) Tiotropium [place] (Spiriva) 18 MCG CAP.W.DEV 1 CAP INH DAILY ASTHMA . Trazodone HCl 50 MG TABLET 3 TAB PO QPM SLEEP (Reported) Triage Note: 37 YO FEMALE TO ER FOR ASTHMA EXACERBATION X2 DAYS. NOTED WITH INS/EXP AUDIBLE WHEEZES. PT TO ER MATIAS B. PLACED ON OXYGEN, RESP CALLED FOR TREATMENT. RA CINDI 86% Triage Nurses Notes Reviewed? yes Onset: Gradual Duration: day(s): Timing: recent history : No Patient currently breastfeeds: No HPI: 37 year old female presents to the emergency department with shortness of breath. She states that it feels like pneumonia, not her usual asthma attack. She has a long-standing history of asthma requiring admission. Past History Travel History Traveled to [place] past 21 day No Medical History Any Pertinent Medical History? 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 FH: diabetes mellitus UNCLE-MATERNAL (BOOP). GRANDMOTHER-MATERNAL (CHF). Relation not specified for: FH: CAD (coronary artery disease) FH: HTN (hypertension) FH: ovarian cancer FH: uterine cancer Hx Contributory? No Review of Systems Review of Systems Constitutional: Reports: see HPI. Denies: fever. EENTM: Reports: no symptoms. Denies: blurred vision, double vision, visual changes. Respiratory: Reports: see HPI, short of breath. Denies: hemoptysis. Cardiovascular: Reports: no symptoms. GI: Reports: no symptoms. Genitourinary: Reports: no symptoms. Musculoskeletal: Reports: no symptoms. Skin: Reports: no symptoms. Neurological/Psychological: Reports: no symptoms. Hematologic/Endocrine: Reports: no symptoms. Immunologic/Allergic: Reports: no symptoms. Physical Exam Physical Exam General Appearance: well developed/nourished, alert, awake, anxious, mild distress Head: atraumatic, normal appearance Eyes: Bilateral: normal appearance, PERRL, EOMI. Ears, Nose, Throat: normal ENT inspection Neck: full range of motion Respiratory: accessory muscle use, wheezing, respiratory distress Cardiovascular: regular rate/rhythm Peripheral Pulses: 4+ radial (R), 4+ radial (L) Gastrointestinal: soft, non-tender Back: normal range of motion Extremities: normal inspection Neurologic/Psych: no motor/sensory deficits, awake, alert, oriented x 3 Skin: intact, normal color, warm/dry Core Measures ACS in differential dx? No CVA/TIA Diagnosis: No Sepsis Present: No Sepsis Focused Exam Completed? No Progress Differential Diagnoses I considered the following diagnoses in my evaluation of the patient: [Asthma, pneumonia, pulmonary embolism] Plan of Care: Orders Procedure Date/time Status Regular Diet 02/19 B Active CBC WITHOUT DIFFERENTIAL 02/19 06 Active BASIC ELECTROLYTES PLUS BUN&CR 02/19 06 Active Heart Healthy Diet 02/18 D Complete Weight 02/19 1936 Active Teach/Educate 02/19 1936 Active Pain Treatment and Response 02/19 1936 Active Nutritional Intake, Monitor 02/19 1936 Active Isolation 02/19 1936 Active Patient Care Conference 02/19 1936 Active URINALYSIS 02/18 181 Active SPECIMEN TO BE OBTAINED 02/18 180 Active Pathway - chart 02/18 180 Active House Staff 02/18 180 Active Patient Data 02/18 1559 Active ED Holding Orders 02/18 1558 Active Admit to inpatient 02/18 1558 Active Vital Signs 02/18 1558 Complete Code Status 02/18 1558 Active URINE DRUG SCREEN FOR ER ONLY 02/18 1553 Active D-DIMER 02/18 1425 Complete Saline Lock 02/18 1423 Active COMPREHENSIVE METABOLIC PANEL 02/18 1423 Complete CBC WITHOUT DIFFERENTIAL 02/18 1423 Complete Intake & Output 02/18 1340 Active TRC EVALUATION (GEN) 02/18 UNK Active OXYGEN SETUP (GEN) 02/18 UNK Active VTE Mechanical Prophylaxis 02/18 UNK Active Vital Signs 02/18 UNK Active Intake & Output 02/18 UNK Complete FingerStick- Glucose 02/18 UNK Active Activity/Ambulation 02/18 UNK Active Current Medications Sig/Nathan Start time Last Medication Dose Stop Time Status Admin Paroxetine HCl 30 MG DAILY 02/19 09 AC (Paxil) Tiotropium [place] 1 PUF DAILY 02/19 09 AC (Spiriva) Insulin Aspart 0 TIDAC 02/19 08 CAN (NovoLOG) Methylprednisolone 40 MG Q8 02/19 06 AC (Solumedrol) Heparin Sodium 5,000 UNIT Q8 02/18 2200 AC (Porcine) Budesonide/ 2 PUF BID 02/18 2100 AC 02/18 Formoterol Fumarate 2021 (Symbicort) Gabapentin 300 MG TID 02/18 2100 AC 02/18 (Neurontin) 2019 Influenza Virus 0.5 ML ONCE ONE 02/18 2100 AC Vaccine 02/18 2101 (Flucelvax) Montelukast Sodium 10 MG AT BEDTIME 02/18 2100 AC 02/18 (Singulair) 2019 Trazodone HCl 150 MG QPM 02/18 2100 AC 02/18 (Desyrel) 2020 Trimethoprim/ 1 TAB BID 02/18 2100 AC Sulfamethoxazole (Bactrim DS) Loratadine 10 MG DAILY 02/19 2000 AC 02/18 (Claritin) 2019 Albuterol Sulfate 2 PUF Q4 PRN 02/18 1815 AC (Ventolin) Oxycodone HCl 30 MG Q4-6 PRN PRN 02/18 1815 AC 02/18 (Roxicodone) 2020 Laboratory Tests 02/18/18 1452: Anion Gap 9, Estimated GFR > 60, BUN/Creatinine Ratio 18.3, Glucose 109 H, Calcium 9.0, Total Bilirubin 0.4, AST 20, ALT 33, Alkaline Phosphatase 80, Total Protein 6.5, Albumin 4.0, Globulin 2.5, Albumin/Globulin Ratio 1.6, D-Dimer High Sensitivty < 200, CBC w Diff NO MAN DIFF REQ, RBC 4.67, MCV 75.3 L, MCH 24.3 L , MCHC 32.3 L, RDW 17.5 H, MPV 7.9, Gran % 62.8, Lymphocytes % 18.5 L, Monocytes % 4.6, Eosinophils % 13.5 H, Basophils % 0.6, Absolute Granulocytes 6.6 H, Absolute Lymphocytes 1.9, Absolute Monocytes 0.5, Absolute Eosinophils 1.4, Absolute Basophils 0.1 Initial ED EKG: none Departure Departure Disposition: STILL A PATIENT Condition: Stable Clinical Impression Primary Impression: Asthma Secondary Impressions: Pneumonia Referrals: James CHAPARRO,Socrates Mehta (PCP/Family) Departure Forms: Customer Survey General Discharge Information Comments PATIENT: TERESA RODRIGEZ PRESENT AGE: 37 PATIENT ACCOUNT NO: [id number] : 81 LOCATION: [facility] ORDERING PHYSICIAN: Son Nielson MD SERVICE DATE: 02/18/18 EXAM TYPE: RAD - XRY-CHEST XRAY, TWO VIEWS EXAMINATION: XR CHEST CLINICAL INFORMATION: Asthma exacerbation COMPARISON: 01/20/2018, 11/11/2017 TECHNIQUE: 2 views of the chest were obtained. FINDINGS: There is consolidation at the right base posteriorly, appearing progressive from the priors. There is also some mild platelike opacity at the left base, increased in conspicuity. The cardiomediastinal silhouette appears stable. There is no evidence of pulmonary edema, pleural effusion, or pneumothorax. There are mild degenerative changes of the spine without evidence of acute osseous abnormality. IMPRESSION: Progressive airspace opacity at the right base and probably also the left, possibly reflective of multifocal pneumonia in the correct clinical setting. DICTATED BY: Wan Silveira MD DATE/TIME DICTATED:02/18/181416 SPA MANAGER:NABOR DATE/TIME TRANSCRIBED:02/18/181416 CONFIDENTIAL, DO NOT COPY WITHOUT APPROPRIATE AUTHORIZATION. <Electronically signed in Other Vendor System> SIGNED BY: Wan Silveira MD 02/18/18 1429 Admission Note Spoke With: Donna Landa MD Documentation of Exam: Documentation of any treatments & extenuating circumstances including Concerns Regarding Discharge (functional status, medication knowledge or non-compliance, living conditions, etc.) that warrant an admission rather than observation: [ Patient needs admission for IV steroids, IV antibiotics, nebulizer treatments every 4-6 hours, oxygen] Critical Care Note Critical Care Note Critical Care Time: non-applicable
--- NOTE | 2018-02-18 14:23 | RADIOLOGY REPORT ---
EXAMINATION: XR CHEST CLINICAL INFORMATION: Asthma exacerbation COMPARISON: 01/20/2018, 11/11/2017 TECHNIQUE: 2 views of the chest were obtained. FINDINGS: There is consolidation at the right base posteriorly, appearing progressive from the priors. There is also some mild platelike opacity at the left base, increased in conspicuity. The cardiomediastinal silhouette appears stable. There is no evidence of pulmonary edema, pleural effusion, or pneumothorax. There are mild degenerative changes of the spine without evidence of acute osseous abnormality. IMPRESSION: Progressive airspace opacity at the right base and probably also the left, possibly reflective of multifocal pneumonia in the correct clinical setting.
[2018-02-18] MEDS ORDERED: PREDNISONE20 M1 PO (14:31)
[2018-02-18 15:02] LABS: ABSOLUTE BASOPHIL COUNT 0.1 /CUMM (0.0-0.2); ABSOLUTE EOSINOPHIL COUNT 1.4 /CUMM (0.0-0.7); ABSOLUTE GRANULOCYTE CT 6.6 /CUMM (1.4-6.5); ABSOLUTE LYMPH COUNT 1.9 /CUMM (1.2-3.4); ABSOLUTE MONOCYTE COUNT 0.5 /CUMM (0.10-0.60); BASOPHIL % 0.6 % (0.0-2.0); EOSINOPHIL % 13.5 % (0-5); GRANULOCYTE % 62.8 % (42.2-75.2); HEMATOCRIT 35.2 % (37-47); MEAN CORPUSCULAR HGB 24.3 PG (27.0-31.0); MEAN CORPUSCULAR HGB CONC 32.3 G/DL (33.0-37.0); MEAN CORPUSCULAR VOLUME 75.3 FL (81.0-99.0); MEAN PLATELET VOLUME 7.9 FL (7.4-10.4); PLATELET COUNT 441 /CUMM (130-400); RBC DISTRIBUTION WIDTH 17.5 % (11.5-14.5); RED BLOOD CELL CT 4.67 /CUMM (4.20-5.40); WHITE BLOOD CELL COUNT 10.4 /CUMM (4.8-10.8)
--- NOTE | 2018-02-18 16:05 | History & Physical ---
Axel Stephens 02/18/18 1604: General Information and HPI MD Statement: I have seen and personally examined TERESA RODRIGEZ and documented this H&P. The patient is a 37 year old F who presented with a patient stated chief complaint of [worsening shortness of breath]. 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 She has been admitted to [facility] on multiple occasions recently for similar complaints, most recently discharge on 12/27. Currently, on Wednesday 02/14 she first started feeling impending shortness of breath that has preceded her recent hospitalizations to the point where she found it difficult to ambulate without becoming profoundly SOB. Her dyspnea continued to worsen in spite of increased use of her inhaler at home, and she presented to the [facility] ED for relief. She reports productive cough, denies chest pain, fever or chills, nausea or vomiting. She denies sick contacts at home, but reports that this episode feels more like a pneumonia to her than an asthma exacerbation. The patient also endorses fatigue, upper extremity muscle soreness and a significant weight gain associated with her use of chronic steroids. She lives alone, has never smoked tobacco, denied ETOH use or illicit drug use. Allergies/Medications Allergies: Coded Allergies: No Known Allergies (06/19/17) Compliance With Home Meds: GOOD Past History Travel History Traveled to [place] past 21 day No Medical History Neurological: FIBROMYALGIA EENT: TMJ arthritis s/p jaw surgery at [facility] 2010 ARTHROCENTESIS 2014 (DRAINED/ FLUSHED JAWS) Cardiovascular: syncope (vasovagal(has had cardio eval)) Respiratory: asthma, bronchitis, pneumonia, CRYPTOGENIC ORGANIZING PNA Gastrointestinal: constipation (IBS), irritable bowel syndrome Hepatic: NONE Renal: NONE Musculoskeletal: fibromyalgia Psychiatric: anxiety Endocrine: NONE Blood Disorders: NONE Cancer(s): NONE 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 FH: diabetes mellitus UNCLE-MATERNAL (BOOP). GRANDMOTHER-MATERNAL (CHF). Relation not specified for: FH: CAD (coronary artery disease) FH: HTN (hypertension) FH: ovarian cancer FH: uterine cancer Psychosocial History Who Do You Live With? parent Services at Home: None Primary Language: Urdu Functional Ability ADLs Independent: dressing, eating, toileting, bathing. Ambulation: independent IADLs Independent: shopping, housework, finances, food prep, telephone, transportation , medication admin. Review of Systems Review of Systems Constitutional: Denies: chills, diaphoresis, fever, weakness. Cardiovascular: Reports: syncope. Denies: chest pain, palpitations. Respiratory: Reports: cough, short of breath, sputum production, wheezing. GI: Denies: constipation, diarrhea, nausea, vomiting. Musculoskeletal: Reports: back pain. Date of LMP: 02/18/17 (over 1 year ago) Exam & Diagnostic Data Last 24 Hrs of Vital Signs/I&O Vital Signs Date Time Temp Pulse Resp B/P B/P Pulse O2 O2 Flow FiO2 Mean Ox Delivery Rate 02/19 0000 94 Nasal 2.0L Cannula 02/18 2321 2.0L 02/18 2229 97.9 92 20 108/57 95 Nasal 2.0L Cannula 02/18 1900 98.4 91 18 136/96 97 Nasal 2.0L Cannula 02/18 1900 97 Nasal 2.0L Cannula 02/18 1739 94 20 141/77 96 Nasal 2.0L Cannula 02/18 1350 95 Nasal 2.0L Cannula 02/18 1342 96 Nasal 6.0L Cannula 02/18 1326 96 Nasal 6.0L Cannula 02/18 1320 98.4 122 18 113/84 86 Room Air Intake & Output 02/19 0800 02/19 0000 02/18 1600 Intake Total 500 Output Total Balance 500 Intake, Oral 500 Patient 85.275 kg Weight Weight Estimated Measurement Method Physical Exam General Appearance Alert, Oriented X3, Cooperative, No Acute Distress HEENT Atraumatic, PERRLA, EOMI, Mucous Membr. moist/pink Cardiovascular Regular Rate, Normal S1, Normal S2 Lungs Diffuse wheezing appreciated Abdomen Normal Bowel Sounds, Soft, No Tenderness Neurological Normal Speech, Normal Tone, Sensation Intact Extremities No Clubbing, No Cyanosis, No Edema Last 24 Hrs of Labs/Luke: Laboratory Tests 02/18/18 1452: Anion Gap 9, Estimated GFR > 60, BUN/Creatinine Ratio 18.3, Glucose 109 H, Calcium 9.0, Total Bilirubin 0.4, AST 20, ALT 33, Alkaline Phosphatase 80, Total Protein 6.5, Albumin 4.0, Globulin 2.5, Albumin/Globulin Ratio 1.6, D-Dimer High Sensitivty < 200, CBC w Diff NO MAN DIFF REQ, RBC 4.67, MCV 75.3 L, MCH 24.3 L , MCHC 32.3 L, RDW 17.5 H, MPV 7.9, Gran % 62.8, Lymphocytes % 18.5 L, Monocytes % 4.6, Eosinophils % 13.5 H, Basophils % 0.6, Absolute Granulocytes 6.6 H, Absolute Lymphocytes 1.9, Absolute Monocytes 0.5, Absolute Eosinophils 1.4, Absolute Basophils 0.1 Assessment/Plan Assessment: 37 year old female with past medical history of of asthma on chronic high-dose PO prednisone and 2L O2 at night, DIRECTOR IMAGING (awaiting biopsy), fibromyalgia, TMJ, presenting for worsening shortness of breath. CXR showed: Progressive airspace opacity at the right base and probably also the left, possibly reflective of multifocal pneumonia in the correct clinical setting. Problems: #Asthma exacerbation #History of DIRECTOR IMAGING vs. CAP Plan: -Admit the patient to general medical service -Consult pulmonology -Follow-up urine, blood, stool and sputum cultures -Solu-medrol 40mg IV Q8 hours -TRC for Duonebs Full code Heparin & ALPS As Ranked By This Provider Problem List: 1. Asthma exacerbation 2. Pneumonia 3. Cryptogenic organizing pneumonia 4. Dyspnea Core Measures/Misc (02/09) Acute Coronary Syndrome ACS Diagnosis: No Congestive Heart Failure Congestive Heart Failure Diagnosis No Cerebrovascular Accident CVA/TIA Diagnosis: No VTE (View Protocol) VTE Risk Factors Acute Medical Illness No Mechanical VTE Prophylaxis d/t N/A MechProphylax Ordered No VTE Pharm Prophylaxis d/t NA PharmProphylax ordered Sepsis (View protocol) Sepsis Present: No If YES complete Sepsis Event Note If YES complete Sepsis Event Note Syeda CHAPARRO,Donna 02/18/18 6866: General Information and HPI Allergies/Medications Home Med list Albuterol Sulfate (Proair Hfa) 90 MCG HFA.AER.AD 2 PUF INH Q4-6 PRN PRN RESPIRATORY . Budesonide/Formoterol Fumarate (Symbicort 160-4.5 Mcg Inhaler) 160 MCG-4.5 MCG/ ACTUATION HFA.AER.AD 2 PUF INH BID SOB . Gabapentin (Neurontin) 300 MG CAPSULE 1 CAP PO TID NERVE PAIN (Reported) Loratadine 10 MG TABLET 10 MG PO DAILY ASTHMA . Montelukast Sodium 10 MG TABLET 10 MG PO AT BEDTIME asthma . Oxycodone HCl 30 MG TABLET 1 TAB PO Q4-6 PRN PRN PAIN (Reported) Paroxetine HCl 30 MG TABLET 1 TAB PO DAILY MENTAL HEALTH (Reported) Prednisone 20 MG TABLET 2 TAB PO DAILY ASTHMA (Reported) Tiotropium [employer] (Spiriva) 18 MCG CAP.W.DEV 1 CAP INH DAILY ASTHMA . Trazodone HCl 50 MG TABLET 3 TAB PO QPM SLEEP (Reported) Core Measures/Misc (02/09) Sepsis (View protocol) If YES complete Sepsis Event Note If YES complete Sepsis Event Note Attending MD Review Statement Attending Statement Attending MD Statement: examined this patient, discuss w/resident/PA/CHRONIC DISEASE MANAGER, agreed w/resident/PA/CHRONIC DISEASE MANAGER, reviewed EMR data (avail), reviewed images Attending Assessment/Plan: 37-year-old female past medical history of non biopsy-proven cryptogenic organizing pneumonia with asthma and hyper eosinophilia. She has had multiple admissions at [facility] most recently was here in December and discharged on January 23. In review of her medical record she has been here in early December ( discharged 12/27), October (11/15), September (10/21), August (09/25) and June (07/19) just to name admissions in the last few months. She was scheduled to follow-up for a second opinion of her lung condition. She has chronic steroid and opiate dependence. And her past medical history also includes fibromyalgia, TMJ and anxiety. She comes in with complaints of shortness of breath -nonresponsive to her usual inhalers. In the ED she had audible wheezing and a chest x-ray which is very difficult to interpret was read as bibasilar opacities suspicious for multifocal pneumonia. Will bring her into general medicine, give her IV steroids, TRC with nebs. She already got antibiotics in the ED, will follow up on cultures and call pulmonary eval- Dr. Verdugo knows her well. Olga Bosch 02/18/18 1802: Core Measures/Misc (02/09) Sepsis (View protocol) If YES complete Sepsis Event Note If YES complete Sepsis Event Note Resident Review Statement Resident Statement: examined this patient, discussed with manufacturing engineering intern, agreed with manufacturing engineering intern Other Findings: Ms Rodrigez is a 37-year-old woman w/ a PMHx of fibromyalgia, TMJ arthritis s/p surgery, asthma on 2L noctural oxygen, DIRECTOR IMAGING(didnt get biopsy yet), eosinophilia and elevated IgE, who came to the hospital with a chief concern of acute onset of dyspnea 2 days. She also reported to have increased wheezing, and has been using rescue inhaler up to 10 times per day recently. She follows up with Dr. Verdugo, and was scheduled to get an open lung biopsy at [facility], which has been deferred for later. She is also on TMP-SMX for PJP prophylaxis. At the time of admission-temperature 98.4, pulse rate 122, respiration 18, blood pressure 113/84, pulse ox 86% on room air, which improved to General Exam: AAOx3, No acute distress, Skin: No rashes, no breakdown;HEENT: PERRLA, EOMI;Neck: Supple, No JVD; No cervical lymphadenopathy;CVS: Reg Rate, Normal S1,S2, No MGR;Resp: decreased air entry, ronchi/rales +;Abdomen: Soft, No tenderness, Normal Bowel Sounds;Neuro: Normal Speech, Strength 5/5 b/l x 4 extremities, Sensation intact, CN III-XII NL, Reflexes 2+;Extremities: No cyanosis, no pedal edema. No accessory muscles. Pertinent lab findings: WBC 10.4, Hb 11.4, platelets 441. Eos 13% Sodium 139, K 4.0, HCO3 31. D-dimer < 200. Chest x ray- Progressive airspace opacity at the right base and probably also the left, possibly reflective of multifocal pneumonia in the correct clinical setting. Etiology in her case of acute asthma exacerbation, in the setting of possible cryptogenic organizing pneumonia is likely worsening of her DIRECTOR IMAGING or an etiology that may have exacerbated asthma such as allergies. Community acquired pneumonia needs to be ruled out with appropriate cultures. PJP pneumonia is in the differential. Problem list: - Asthma exacerbation - history of DIRECTOR IMAGING - rule out CAP - Acute hypoxic respiratory failure. Plan: - Admit the pt to general medicine service, given frequent exacberations. - Iv solumedrol 40mg q8 for now. - Scheduled beta agonist tx - Continue PJP prophylaxis with bactrim. Defer the decision to test for PJP to the tabulating supervisor. - She was given ceftriaxone+azithromycin pending cultures. Will defer the decision to the tabulating supervisor at this time. No abx for now. - DVT PPx with heparin sc + ALPS.
--- NOTE | 2018-02-18 16:28 | Admission Certification ---
Admission Certification Certification Statement - As attending physician, I certify that at the time of - admission, based on clinical presentation, severity of - symptoms, need for further diagnostic testing and - therapeutic interventions, and risk of adverse outcomes - without in-hospital treatment, in my clinical assessment, - this patient requires an acute hospital stay for a minimum - of two nights or longer. I have also considered psychsocial - factors such as support system, advanced age, financial - issues, cognitive issues, and failed out-patient treatments, - past re-admission history, safety of patient, and lack of - compliance as applicable. Specific rationale supporting this admission is: Underlying HIM CLERK with acute exacerbation
[2018-02-18 19:00] VITALS: BP 136/96
[2018-02-18 22:29] VITALS: BP 108/57
[2018-02-18 23:21] VITALS: BP 133/79
--- NOTE | 2018-02-19 05:16 | PN- Housestaff ---
Axel Stephens 02/19/18 0515: Subjective Follow-up For: Dyspnea Subjective: Patient seen resting comfortably in the bed, breathing heavily and on the nasal cannula. She endorsed shortness of breath, mostly unchanged from last night. She has not yet been able to produce enough sputum for sample, reports she is still coughing. She does report one episode of sweating overnight, along with difficulty sleeping. But she has been afebrile she denies chest pain, fever or chills but does report nausea that has been bothering her. Review of Systems Constitutional: Reports: diaphoresis. Denies: chills, fever. Cardiovascular: Denies: chest pain, orthopena, palpitations. Respiratory: Reports: cough, short of breath, sputum production. Gastrointestinal: Denies: abdominal pain, diarrhea, nausea, vomiting. Objective Last 24 Hrs of Vital Signs/I&O Vital Signs Date Time Temp Pulse Resp B/P B/P Pulse O2 O2 Flow FiO2 Mean Ox Delivery Rate 02/19 0818 Nasal 2.0L Cannula 02/19 0630 98.3 79 20 122/70 89 Nasal 2.0L Cannula 02/19 0000 94 Nasal 2.0L Cannula 02/18 2321 2.0L 02/18 2229 97.9 92 20 108/57 95 Nasal 2.0L Cannula 02/18 1900 98.4 91 18 136/96 97 Nasal 2.0L Cannula 02/18 1900 97 Nasal 2.0L Cannula 02/18 1739 94 20 141/77 96 Nasal 2.0L Cannula 02/18 1350 95 Nasal 2.0L Cannula 02/18 1342 96 Nasal 6.0L Cannula 02/18 1326 96 Nasal 6.0L Cannula Intake & Output 02/19 1600 02/19 0800 02/19 0000 Intake Total 120 500 Output Total Balance 120 500 Intake, Oral 120 500 Patient 91.767 kg 85.275 kg Weight Weight Bed scale Estimated Measurement Method Physical Exam General Appearance: Alert, Oriented X3, Cooperative, No Acute Distress Cardiovascular: Regular Rate, Normal S1, Normal S2 Lungs: Diffuse wheezes, with coarse breath sounds throughout Abdomen: Normal Bowel Sounds, Soft, No Tenderness Current Medications: Current Medications Sig/Nathan Start time Last Medication Dose Route Stop Time Status Admin Albuterol Sulfate 3 ML BID 02/19 2100 AC INH Albuterol Sulfate 2 PUF Q4 PRN 02/18 1815 AC INH Albuterol Sulfate 3 ML ONCE ONE 02/18 1430 DC INH 02/18 1431 Albuterol Sulfate 3 ML ONCE ONE 02/18 1430 DC INH 02/18 1431 Albuterol Sulfate 3 ML ONCE ONE 02/18 1350 DC 02/18 INH 02/18 1351 1350 Albuterol Sulfate 3 ML ONCE ONE 02/18 1330 DC 02/18 INH 02/18 1331 1326 Alprazolam 0.25 MG STAT STA 02/18 1424 DC PO 02/18 1425 Azithromycin 500 MG ONCE ONE 02/18 1530 DC 02/18 Sodium Chloride 250 ML IV 02/18 1629 1647 Budesonide/ 2 PUF BID 02/18 2100 AC 02/19 Formoterol Fumarate INH 0846 Ceftriaxone Sodium 0 .STK-MED ONE 02/18 1629 DC .ROUTE Ceftriaxone Sodium 1,000 MG ONCE ONE 02/18 1530 DC 02/18 IV 02/18 1531 1646 Gabapentin 300 MG TID 02/18 2100 AC 02/19 PO 0846 Heparin Sodium 5,000 UNIT Q8 02/18 2200 AC (Porcine) SC Influenza Virus 0.5 ML ONCE ONE 02/18 2100 DC Vaccine IM 02/18 210 Insulin Aspart 0 TIDAC 02/19 0800 CAN SC Ipratropium [place] 2.5 ML ONCE ONE 02/18 1430 DC INH 02/18 1431 Ipratropium [place] 2.5 ML ONCE ONE 02/18 1330 DC 02/18 INH 02/18 1331 1326 Loratadine 10 MG DAILY 02/18 2000 AC 02/19 PO 0846 Methylprednisolone 40 MG Q8 02/19 0600 AC 02/19 IV 0502 Methylprednisolone 0 .STK-MED ONE 02/18 1629 DC .ROUTE Methylprednisolone 125 MG ONCE ONE 02/18 1530 DC 02/18 IV 02/18 1531 1647 Metoclopramide HCl 10 MG ONCE ONE 02/19 0945 DC 02/19 IM 02/19 0946 1017 Montelukast Sodium 10 MG AT BEDTIME 02/18 2100 AC 02/18 PO 2020 Omeprazole 40 MG DAILY AC 02/19 0919 AC 02/19 PO 1014 Oxycodone HCl 30 MG Q4-6 PRN PRN 02/18 1815 AC 02/19 PO 0912 Oxycodone HCl 0 .STK-MED ONE 02/18 1556 DC PO Oxycodone HCl 30 MG STAT STA 02/18 1522 DC 02/18 PO 02/18 1523 1555 Paroxetine HCl 30 MG DAILY 02/19 09 AC 02/19 PO 0846 Sodium Chloride 1,000 ML BOLUS ONE 02/18 1430 DC 02/18 IV 02/18 1629 1646 Tiotropium [place] 1 PUF DAILY 02/19 09 AC 02/19 INH 0846 Trazodone HCl 150 MG QPM 02/18 2100 AC 02/18 PO 2020 Trimethoprim/ 1 TAB BID 02/18 2100 AC 02/19 Sulfamethoxazole PO 08 Last 24 Hrs of Lab/Luke Results Last 24 Hrs of Labs/Mics: Laboratory Tests 02/19/18 0709: Anion Gap 9, Estimated GFR > 60, BUN/Creatinine Ratio 16.7, CBC w Diff NO MAN DIFF REQ, RBC 4.74, MCV 75.1 L, MCH 23.8 L, MCHC 31.7 L, RDW 17.5 H, MPV 8.4 , Gran % 86.2 H, Lymphocytes % 13.0 L, Monocytes % 0.8 L, Eosinophils % 0, Basophils % 0, Absolute Granulocytes 6.7 H, Absolute Lymphocytes 1.0 L, Absolute Monocytes 0.1, Absolute Eosinophils 0, Absolute Basophils 0 02/18/18 1452: Anion Gap 9, Estimated GFR > 60, BUN/Creatinine Ratio 18.3, Glucose 109 H, Calcium 9.0, Total Bilirubin 0.4, AST 20, ALT 33, Alkaline Phosphatase 80, Total Protein 6.5, Albumin 4.0, Globulin 2.5, Albumin/Globulin Ratio 1.6, D-Dimer High Sensitivty < 200, CBC w Diff NO MAN DIFF REQ, RBC 4.67, MCV 75.3 L, MCH 24.3 L , MCHC 32.3 L, RDW 17.5 H, MPV 7.9, Gran % 62.8, Lymphocytes % 18.5 L, Monocytes % 4.6, Eosinophils % 13.5 H, Basophils % 0.6, Absolute Granulocytes 6.6 H, Absolute Lymphocytes 1.9, Absolute Monocytes 0.5, Absolute Eosinophils 1.4, Absolute Basophils 0.1 Assessment/Plan Assessment: 37 year old female with past medical history of of asthma on chronic high-dose PO prednisone and 2L O2 at night, 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 Patient's CBCs demonstrate eosinophilia yesterday with improved pulmonology may consider a eosinophilic granulomatosis in the differential. Patient has been seen repeatedly [facility] for similar complaints and has been referred for biopsy to confirm SUPERVISOR ROLLER PRINTING diagnosis. Patient on chronic steroids, abdominal pain is possibly due to reflux. Problems: #Asthma exacerbation #History of SUPERVISOR ROLLER PRINTING vs. CAP Plan: -F/u Pulmonology recommendations, consultation appreciated -Follow-up sputum cultures -Solu-medrol 40mg IV Q8 hours -TRC for Duonebs -Omeprazole added GI prophylaxis -CT chest without contrast to evaluate possible pneumonia Full code Heparin & ALPS Problem List: 1. Asthma exacerbation 2. Pneumonia 3. TMJ (temporomandibular joint syndrome) Pain Ratin Pain Location: None Pain Goal: Pain 4 or less Pain Plan: per pathway Tomorrow's Labs & Rationales: Anca, IgE Sarath Abdullahi 02/19/18 1131: Attending MD Review Statement Attending Statement Attending MD Statement: examined this patient, discuss w/resident/PA/OIL SPRAYER, agreed w/resident/PA/OIL SPRAYER, discussed with family, reviewed EMR data (avail), discussed with nursing, discussed with case mgmt, reviewed images, amended to note Attending Assessment/Plan: 37-year-old female past medical history of non biopsy-proven cryptogenic organizing pneumonia with asthma, fibromyalgia, TMJ and hyper eosinophilia. She has had multiple admissions at [facility] most recently was here in December and discharged on January 23. She has chronic steroid and opiate dependence presents with shortness of breath -nonresponsive to her usual inhalers. Overnight felt nausea. Minimal use of accessory muscles. Admit to general medicine for asthma exacerbation with hypoxia, Continue IV steroids, TRC with nebs. Pulmonary consult. Pain control. Start bactrim for prophyalxis as per pulmonary recommendations in past. PPI daily with iv reglan 1 dose now. Continue rest of home meds. GI prophyalxis
[2018-02-19 06:30] VITALS: BP 122/70
[2018-02-19 09:09] LABS: ABSOLUTE BASOPHIL COUNT 0 /CUMM (0.0-0.2); ABSOLUTE EOSINOPHIL COUNT 0 /CUMM (0.0-0.7); ABSOLUTE GRANULOCYTE CT 6.7 /CUMM (1.4-6.5); ABSOLUTE MONOCYTE COUNT 0.1 /CUMM (0.10-0.60); BASOPHIL % 0 % (0.0-2.0); EOSINOPHIL % 0 % (0-5); HEMATOCRIT 35.6 % (37-47); MEAN CORPUSCULAR HGB 23.8 PG (27.0-31.0); MEAN CORPUSCULAR HGB CONC 31.7 G/DL (33.0-37.0); MEAN CORPUSCULAR VOLUME 75.1 FL (81.0-99.0); MEAN PLATELET VOLUME 8.4 FL (7.4-10.4); PLATELET COUNT 441 /CUMM (130-400); RBC DISTRIBUTION WIDTH 17.5 % (11.5-14.5); RED BLOOD CELL CT 4.74 /CUMM (4.20-5.40); WHITE BLOOD CELL COUNT 7.8 /CUMM (4.8-10.8)
[2018-02-19 10:55] LABS: GRANULOCYTE % 86.2 % (42.2-75.2)
--- NOTE | 2018-02-19 12:45 | Cons- Pulmonary ---
General Information and HPI Consulting Request Date of Consult: 02/19/18 Requested By: Dr. 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 She has been followed at the [place] [facility] however has had issues with follow-up given illnesses. She has had multiple admissions. She has not had any biopsy proven histological evidence of cryptogenic pneumonia however this is presumed. She presents to the hospital with severe dyspnea, wheezing, coughing, desaturation. She is on home oxygen and bronchodilators. Her chest x-ray shows some changes in the concern for a right basilar infiltrate. She does not have any obvious signs of any infection at this time. She has no sick contacts no travel history. She remains on prednisone 40 mg daily at baseline. She sporadically takes her pneumocystis prophylaxis with Bactrim given high dose of prednisone. She has no hemoptysis. She had a recent accidental fall with a bruise that has healed on her left side. Allergies/Medications Allergies: Coded Allergies: No Known Allergies (06/19/17) Home Med List: Albuterol Sulfate (Proair Hfa) 90 MCG HFA.AER.AD 2 PUF INH Q4-6 PRN PRN RESPIRATORY . Budesonide/Formoterol Fumarate (Symbicort 160-4.5 Mcg Inhaler) 160 MCG-4.5 MCG/ ACTUATION HFA.AER.AD 2 PUF INH BID SOB . Gabapentin (Neurontin) 300 MG CAPSULE 1 CAP PO TID NERVE PAIN (Reported) Loratadine 10 MG TABLET 10 MG PO DAILY ASTHMA . Montelukast Sodium 10 MG TABLET 10 MG PO AT BEDTIME asthma . Oxycodone HCl 30 MG TABLET 1 TAB PO Q4-6 PRN PRN PAIN (Reported) Paroxetine HCl 30 MG TABLET 1 TAB PO DAILY MENTAL HEALTH (Reported) Prednisone 20 MG TABLET 2 TAB PO DAILY ASTHMA (Reported) Tiotropium Thor (Spiriva) 18 MCG CAP.W.DEV 1 CAP INH DAILY ASTHMA . Trazodone HCl 50 MG TABLET 3 TAB PO QPM SLEEP (Reported) Current Medications: Current Medications Sig/Nathan Start time Last Medication Dose Route Stop Time Status Admin Albuterol Sulfate 3 ML BID 02/19 2100 AC INH Albuterol Sulfate 2 PUF Q4 PRN 02/18 1815 AC INH Albuterol Sulfate 3 ML ONCE ONE 02/18 1430 DC INH 02/18 1431 Albuterol Sulfate 3 ML ONCE ONE 02/18 1430 DC INH 02/18 1431 Albuterol Sulfate 3 ML ONCE ONE 02/18 1350 DC 02/18 INH 02/18 1351 1350 Albuterol Sulfate 3 ML ONCE ONE 02/18 1330 DC 02/18 INH 02/18 1331 1326 Alprazolam 0.25 MG STAT STA 02/18 1424 DC PO 02/18 1425 Azithromycin 500 MG ONCE ONE 02/18 1530 DC 02/18 Sodium Chloride 250 ML IV 02/18 1629 1647 Budesonide/ 2 PUF BID 02/18 2100 AC 02/19 Formoterol Fumarate INH 0846 Ceftriaxone Sodium 0 .STK-MED ONE 02/18 1629 DC .ROUTE Ceftriaxone Sodium 1,000 MG ONCE ONE 02/18 1530 DC 02/18 IV 02/18 1531 1646 Gabapentin 300 MG TID 02/18 2100 AC 02/19 PO 0846 Heparin Sodium 5,000 UNIT Q8 02/18 2200 AC (Porcine) SC Influenza Virus 0.5 ML ONCE ONE 02/18 2100 DC Vaccine IM 02/18 210 Insulin Aspart 0 TIDAC 02/19 0800 CAN SC Ipratropium Thor 2.5 ML ONCE ONE 02/18 1430 DC INH 02/18 1431 Ipratropium Thor 2.5 ML ONCE ONE 02/18 1330 DC 02/18 INH 02/18 1331 1326 Loratadine 10 MG DAILY 02/18 2000 AC 02/19 PO 0846 Methylprednisolone 40 MG Q8 02/19 0600 AC 02/19 IV 0502 Methylprednisolone 0 .STK-MED ONE 02/18 1629 DC .ROUTE Methylprednisolone 125 MG ONCE ONE 02/18 1530 DC 02/18 IV 02/18 1531 1647 Metoclopramide HCl 10 MG ONCE ONE 02/19 0945 DC 02/19 IM 02/19 0946 1017 Montelukast Sodium 10 MG AT BEDTIME 02/18 2100 AC 02/18 PO 2020 Omeprazole 40 MG DAILY AC 02/19 0919 AC 02/19 PO 1014 Oxycodone HCl 30 MG Q4-6 PRN PRN 02/18 1815 AC 02/19 PO 0912 Oxycodone HCl 0 .STK-MED ONE 02/18 1556 DC PO Oxycodone HCl 30 MG STAT STA 02/18 1522 DC 02/18 PO 02/18 1523 1555 Paroxetine HCl 30 MG DAILY 02/19 0900 AC 02/19 PO 0846 Sodium Chloride 1,000 ML BOLUS ONE 02/18 1430 DC 02/18 IV 02/18 1629 1646 Tiotropium [place] 1 PUF DAILY 02/19 0900 AC 02/19 INH 0846 Trazodone HCl 150 MG QPM 02/18 2100 AC 02/18 PO 202 Trimethoprim/ 1 TAB BID 02/18 2100 AC 02/19 Sulfamethoxazole PO 0846 Review of Systems Comments 18 point review of systems was performed and reviewed. Please see pertinent positives and pertinent negatives in the HPI. Otherwise ROS is negative. 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 FH: diabetes mellitus UNCLE-MATERNAL (BOOP). GRANDMOTHER-MATERNAL (CHF). Relation not specified for: FH: CAD (coronary artery disease) FH: HTN (hypertension) FH: ovarian cancer FH: uterine cancer Psychosocial History Who Do You Live With? parent Services at Home: None Primary Language: Samoan Smoking Status: Never Smoked Functional Ability ADLs Independent: dressing, eating, toileting, bathing. Ambulation: independent IADLs Independent: shopping, housework, finances, food prep, telephone, transportation , medication admin. Exam & Diagnostic Data Last 24 Hrs of Vital Signs/I&O Vital Signs Date Time Temp Pulse Resp B/P B/P Pulse O2 O2 Flow FiO2 Mean Ox Delivery Rate 02/19 1512 97.4 94 18 119/81 94 Room Air 02/19 0818 Nasal 2.0L Cannula 02/19 0630 98.3 79 20 122/70 89 Nasal 2.0L Cannula 02/19 0000 94 Nasal 2.0L Cannula 02/18 2321 2.0L 02/18 2229 97.9 92 20 108/57 95 Nasal 2.0L Cannula 02/18 1900 98.4 91 18 136/96 97 Nasal 2.0L Cannula 02/18 1900 97 Nasal 2.0L Cannula 02/18 1739 94 20 141/77 96 Nasal 2.0L Cannula Intake & Output 02/19 1600 02/19 0800 02/19 0000 Intake Total 120 500 Output Total Balance 120 500 Intake, Oral 120 500 Patient 202 lb 188 lb Weight Weight Bed scale Estimated Measurement Method Physical Exam Other Physical Findings: Generally - Awake, alert Head and neck - normocephalic, atraumatic, EOMI grossly intact Cardiovascular - S1, S2, no murmurs, rubs or gallops Lungs -bilateral wheezing with a prolonged end expiratory phase Abdomen - Bowel sounds positive, soft, non-tender Extremities - without edema Last 48 Hrs of Labs/Luke: Laboratory Tests 02/19/18 0709: Anion Gap 9, Estimated GFR > 60, BUN/Creatinine Ratio 16.7, CBC w Diff NO MAN DIFF REQ, RBC 4.74, MCV 75.1 L, MCH 23.8 L, MCHC 31.7 L, RDW 17.5 H, MPV 8.4 , Gran % 86.2 H, Lymphocytes % 13.0 L, Monocytes % 0.8 L, Eosinophils % 0, Basophils % 0, Absolute Granulocytes 6.7 H, Absolute Lymphocytes 1.0 L, Absolute Monocytes 0.1, Absolute Eosinophils 0, Absolute Basophils 0 02/18/18 1815: Urine Color Cancelled, Urine Clarity Cancelled, Urine pH Cancelled, Ur Specific [place] Cancelled, Urine Protein Cancelled, Urine Ketones Cancelled, Urine Nitrite Cancelled, Urine Bilirubin Cancelled, Urine Urobilinogen Cancelled, Ur Leukocyte Esterase Cancelled, Ur Microscopic Cancelled, Urine Hemoglobin Cancelled, Urine Glucose Cancelled 02/18/18 1452: Anion Gap 9, Estimated GFR > 60, BUN/Creatinine Ratio 18.3, Glucose 109 H, Calcium 9.0, Total Bilirubin 0.4, AST 20, ALT 33, Alkaline Phosphatase 80, Total Protein 6.5, Albumin 4.0, Globulin 2.5, Albumin/Globulin Ratio 1.6, D-Dimer High Sensitivty < 200, CBC w Diff NO MAN DIFF REQ, RBC 4.67, MCV 75.3 L, MCH 24.3 L , MCHC 32.3 L, RDW 17.5 H, MPV 7.9, Gran % 62.8, Lymphocytes % 18.5 L, Monocytes % 4.6, Eosinophils % 13.5 H, Basophils % 0.6, Absolute Granulocytes 6.6 H, Absolute Lymphocytes 1.9, Absolute Monocytes 0.5, Absolute Eosinophils 1.4, Absolute Basophils 0.1 Assessment/Plan Impression/Plan: Impression 37-year-old woman * 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 * 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 Plan -Given changes in x-ray please obtain CAT scan without contrast -Please check p-ANCA, c-ANCA, this is to rule out eosinophilic granulomatosis/ vasculitis -The patient has been reluctant to pursue lung biopsies and has had issues with follow-up with [place] [facility] -Given the above information she would be a good candidate to begin Nucala on an outpt basis -TRC/nebs -Continue Solu-Medrol 40 mg IV every 8 hours -Continue Bactrim pneumocystis prophylaxis DVT prophylaxis at all times Consult Acknowledgment - Thank you for your consult request.
[2018-02-19 15:12] VITALS: BP 119/81
[2018-02-19 23:28] VITALS: BP 125/67
--- NOTE | 2018-02-19 23:39 | CT SCAN REPORT ---
EXAMINATION: CT CHEST WITHOUT CONTRAST CLINICAL INFORMATION: Shortness of breath. 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 PA lateral chest 02/18/2018 TECHNIQUE: Multidetector volumetric CT imaging of the chest was done. Axial MIP volume rendering provided. Sagittal and coronal reformatted images were obtained. DLP: 418.69 mGy-cm FINDINGS: LUNGS: There are scattered geographic areas of groundglass opacities in both lungs. These have been seen on multiple prior CAT scans. There is bibasilar linear atelectasis at both lung bases. There is a small focus of consolidation at the left posterior costophrenic angle with air bronchograms. This focus of consolidation is new since prior studies. MEDIASTINUM: There are multiple small shotty lymph nodes in the mediastinum. Lymph nodes are subcentimeter. There is no bulky lymphadenopathy. There is no pericardial effusion. PLEURA: There is no pleural effusion. No pleural mass or thickening. AXILLA: No lymphadenopathy. UPPER ABDOMEN: Unremarkable. OSSEOUS STRUCTURES: Unremarkable. IMPRESSION: 1. Chronic geographic groundglass opacities throughout both lungs similar to multiple prior exams. 2. Focus of consolidation with air bronchogram at the left posterior costophrenic angle which is new since prior exam.
--- NOTE | 2018-02-20 05:22 | PN- Housestaff ---
Axel Stephens 02/20/18 0521: Subjective Follow-up For: Dyspnea Subjective: Patient seen resting comfortably in the bed. She reports feeling slightly improved shortness of breath from yesterday. She denied fever, chills, chest pain. Reported mild nausea, but also improved from yesterday. Review of Systems Constitutional: Denies: chills, diaphoresis, fever. Cardiovascular: Denies: chest pain. Respiratory: Reports: short of breath, sputum production, wheezing. Denies: hemoptysis. Gastrointestinal: Reports: nausea. Denies: bloating, vomiting. Objective Last 24 Hrs of Vital Signs/I&O Vital Signs Date Time Temp Pulse Resp B/P B/P Pulse O2 O2 Flow FiO2 Mean Ox Delivery Rate 02/21 0000 Nasal 2.0L Cannula 02/20 2155 97.7 75 20 123/80 96 Nasal 2.0L Cannula 02/20 1850 94 Nasal 2.0L Cannula 02/20 1600 Nasal 2.0L Cannula 02/20 1458 98.2 100 18 126/78 95 Nasal 2.0L Cannula 02/20 0920 95 Nasal 2.0L Cannula 02/20 0800 Nasal 2.0L Cannula 02/20 0700 98.0 93 20 122/90 95 Nasal 2.0L Cannula Intake & Output 02/21 0800 02/21 0000 02/20 1600 Intake Total 600 720 Output Total Balance 600 720 Intake, Oral 600 720 Physical Exam General Appearance: Alert, Oriented X3, Cooperative, No Acute Distress Cardiovascular: Regular Rate, Normal S1, Normal S2 Lungs: Diffuse wheezes throughout, coarse breath sounds in the lower lung vargas Current Medications: Current Medications Sig/Nathan Start time Last Medication Dose Route Stop Time Status Admin Albuterol Sulfate 3 ML BID 02/19 INH 1929 Albuterol Sulfate 2 PUF Q4 PRN 02/18 1815 AC INH Amoxicillin/ 875 MG Q12 02/20 1135 AC 02/20 Clavulanate Potassium PO 2157 Budesonide/ 2 PUF BID 02/18 2100 AC 02/20 Formoterol Fumarate INH 2157 Gabapentin 300 MG TID 02/18 2100 AC 02/20 PO 2157 Heparin Sodium 5,000 UNIT Q8 02/18 2200 AC (Porcine) SC Loratadine 10 MG DAILY 02/19 2000 AC 02/20 PO 906 Methylprednisolone 40 MG Q12 02/20 2100 AC 02/20 IV 2158 Methylprednisolone 40 MG Q8 02/19 0600 DC 02/20 IV 1416 Metoclopramide HCl 0 .STK-MED ONE 02/20 1903 DC .ROUTE Metoclopramide HCl 10 MG ONCE ONE 02/20 1900 DC 02/20 IM 02/20 1901 190 Montelukast Sodium 10 MG AT BEDTIME 02/18 2100 02/20 PO 2157 Omeprazole 40 MG DAILY AC 02/19 0919 AC 02/20 PO 0601 Oxycodone HCl 30 MG Q4-6 PRN PRN 02/18 1815 AC 02/21 PO 0256 Paroxetine HCl 60 MG DAILY 02/21 09 AC PO Paroxetine HCl 30 MG ONCE ONE 02/20 0930 DC 02/20 PO 02/20 0931 1024 Paroxetine HCl 30 MG DAILY 02/19 09 DC 02/20 PO 0907 Patient Medication 1 ED ONE ONE 02/21 2000 RI Teaching ED 02/20 2001 Tiotropium [place] 1 PUF DAILY 02/19 09 AC 02/20 INH 0908 Trazodone HCl 150 MG QPM 02/20 2100 AC 02/20 PO 2157 Trazodone HCl 150 MG QPM 02/18 2100 DC 02/19 PO 2206 Trimethoprim/ 1 TAB DAILY 02/20 09 AC 02/20 Sulfamethoxazole PO 09 Last 24 Hrs of Lab/Luke Results Last 24 Hrs of Labs/Mics: Laboratory Tests 02/20/18 1530: Anion Gap 12, Estimated GFR > 60, BUN/Creatinine Ratio 22.9 02/20/18 1530: Sodium Cancelled, Potassium Cancelled, Chloride Cancelled, Carbon Dioxide Cancelled, Anion Gap Cancelled, BUN Cancelled, Creatinine Cancelled, BUN/ Creatinine Ratio Cancelled, CBC w Diff NO MAN DIFF REQ, RBC 4.82, MCV 74.5 L, MCH 23.8 L, MCHC 31.9 L, RDW 18.0 H, MPV 8.3, Gran % 87.6 H, Lymphocytes % 9.1 L, Monocytes % 3.3, Eosinophils % 0, Basophils % 0, Absolute Granulocytes 11.7 H, Absolute Lymphocytes 1.2, Absolute Monocytes 0.4, Absolute Eosinophils 0, Absolute Basophils 0, IgE Pending, ANCA Pending 02/20/18 1500: IgE Cancelled 02/20/18 1000: ANCA Cancelled 02/20/18 0600: CBC w Diff Cancelled, WBC Cancelled, RBC Cancelled, Hgb Cancelled, Hct Cancelled , MCV Cancelled, MCH Cancelled, MCHC Cancelled, RDW Cancelled, Plt Count Cancelled, MPV Cancelled Microbiology 02/20 727 LOWER RESP: Respiratory Culture - ORD 02/20 727 LOWER RESP: Gram Stain - ORD Assessment/Plan Assessment: 37 year old female with past medical history of of asthma on chronic high-dose PO prednisone and 2L O2 at night, 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 Patient has been seen repeatedly [facility] for similar complaints and has been referred for biopsy to confirm BLOOD BANK TECHNOLOGIST diagnosis. Patient on chronic steroids, abdominal pain is possibly due to reflux. Chest CT showed new focus of consolidation with air bronchogram at the left posterior costophrenic angle suggested, could possibly suggest aspiration pneumonia. Problems: #Asthma exacerbation #History of BLOOD BANK TECHNOLOGIST vs. CAP Plan: -F/u Pulmonology recommendations, consultation appreciated -Follow-up sputum cultures -Solu-medrol changed to 40mg IV Q12 hours -TRC for Duonebs -Omeprazole for GI prophylaxis -Augmentin added for possible aspiration PNA -Paxil changed to 60mg PO daily, this is the patient's home dose Full code Heparin & ALPS Problem List: 1. Asthma exacerbation 2. Multifocal pneumonia Pain Ratin Pain Location: none Pain Goal: Remain pain free Pain Plan: per pathway Tomorrow's Labs & Rationales: cbc Pablo CHAPARRO,Idania 02/20/18 1106: Subjective Subjective: C0. . . Review of Systems Constitutional: Denies: see HPI. Objective Last 24 Hrs of Vital Signs/I&O Vital Signs Date Time Temp Pulse Resp B/P B/P Pulse O2 O2 Flow FiO2 Mean Ox Delivery Rate 02/20 1850 94 Nasal 2.0L Cannula 02/20 1600 Nasal 2.0L Cannula 02/20 1458 98.2 100 18 126/78 95 Nasal 2.0L Cannula 02/20 0920 95 Nasal 2.0L Cannula 02/20 0800 Nasal 2.0L Cannula 02/20 0700 98.0 93 20 122/90 95 Nasal 2.0L Cannula 02/20 0000 88 02/20 0000 Nasal 2.0L Cannula 02/19 2328 98.1 108 20 125/67 93 Nasal 2.0L Cannula Intake & Output 02/20 1600 02/20 0800 02/20 0000 Intake Total 720 510 Output Total Balance 720 510 Intake, IV 30 Intake, Oral 720 480 Number 0 Bowel Movements Physical Exam General Appearance: Alert, Oriented X3, Cooperative Assessment/Plan Problem List: 1. Asthma exacerbation Pain Ratin Pain Location: n/a Pain Goal: Remain pain free Pain Plan: pathay Tomorrow's Labs & Rationales: cbc Attending MD Review Statement Attending Statement Attending MD Statement: examined this patient, discuss w/resident/PA/GLUING MACHINE OPERATOR AUTOMATIC, agreed w/resident/PA/GLUING MACHINE OPERATOR AUTOMATIC, discussed with family, reviewed EMR data (avail), discussed with nursing, discussed with case mgmt, reviewed images, amended to note Attending Assessment/Plan: Overnight felt better. Nausea improved. Minimal use of accessory muscles. CT chest noted with bilateral ground glass opacities. Plan will be to Continue IV steroids, TRC with nebs. Follow Pulmonary recommendations for taper and review CT chest findings if abx needed. Follow cultures. Pain control. bactrim for prophyalxis as per pulmonary recommendations in past. PPI daily for steroid induced gastritis. Continue rest of home meds. GI prophyalxis Sarath Abdullahi 02/20/18 1125: Attending MD Review Statement Attending Statement Attending MD Statement: examined this patient, discuss w/resident/PA/GLUING MACHINE OPERATOR AUTOMATIC, agreed w/resident/PA/GLUING MACHINE OPERATOR AUTOMATIC, discussed with family, reviewed EMR data (avail), discussed with nursing, discussed with case mgmt, reviewed images, amended to note
[2018-02-20 07:00] VITALS: BP 122/90
[2018-02-20] MEDS ORDERED: PAROXETINE HCL30 M1 PO (12:43)
--- NOTE | 2018-02-20 12:45 | Patient Discharge Instructions ---
Discharge Instructions General Discharge Information You were seen/treated for: PNEUMONIA Watch for these problems: WITH WORSENIGN SHORTNESS OF BREATH, CHEST PAIN, PLEASE BE SEEN BY YOUR DOCTOR OR GO TO YOUR NEAREST EMERGENCY DEPARTMENT Special Instructions: PLEASE FOLLOW-UP WITH YOUR COMMERCIAL ROOFING ESTIMATOR ABOUT YOUR RECENT HOSPITALIZATION Diet Continue normal diet: Yes Recommended Diet: Regular Activity Full Activity/No Limits: No Activity Self Limited: Yes Acute Coronary Syndrome Inclusion Criteria At DC or during hospital stay patient has or had the following: ACS DIAGNOSIS No Discharge Core Measures Meds if any: Prescribed or Continued at Discharge Meds if any: NOT Prescribed or Continued at Discharge Congestive Heart Failure Inclusion Criteria At DC or during hospital stay patient has or had the following: CHF DIAGNOSIS No Discharge Core Measures Meds if any: Prescribed or Continued at Discharge Meds if any: NOT Prescribed or Continued at Discharge Cerebrovascular accident Inclusion Criteria At DC or during hospital stay patient has or had the following: CVA/TIA Diagnosis No Discharge Core Measures Meds if any: Prescribed or Continued at Discharge Meds if any: NOT Prescribed or Continued at Discharge Venous thromboembolism Inclusion Criteria VTE Diagnosis No VTE Type NONE VTE Confirmed by (Test) NONE Discharge Core Measures - Per Current guidelines, there needs to be overlap - treatment for the first 5 days of Warfarin therapy. - If discharged on Warfarin prior to 5 days of - overlap therapy, the patient will need to be - assessed for post discharge needs including - *Post discharge parental anticoagulation - *Warfarin and/or parental anticoagulation education - *Follow up date to check INR post discharge At least 5 days overlap therapy as Inpatient No Meds if any: Prescribed or Continued at Discharge Note: Overlap Therapy is Warfarin and Anticoagulant Meds if any: NOT Prescribed or Continued at Discharge
--- NOTE | 2018-02-20 12:58 | PN- Pulmonary ---
Subjective HPI/Critical Care Issues: Patient seen and examined this morning. She appears to be feeling better. No nausea no vomiting no diarrhea no constipation. No fevers no chills. Objective Current Medications: Current Medications Sig/Nathan Start time Last Medication Dose Route Stop Time Status Admin Albuterol Sulfate 3 ML BID 02/19 2100 AC 02/20 INH 0919 Albuterol Sulfate 2 PUF Q4 PRN 02/18 1815 AC INH Amoxicillin/ 875 MG Q12 02/20 1135 AC Clavulanate Potassium PO Budesonide/ 2 PUF BID 02/18 2100 AC 02/20 Formoterol Fumarate INH 0908 Gabapentin 300 MG TID 02/18 2100 AC 02/20 PO 0907 Heparin Sodium 5,000 UNIT Q8 02/18 2200 AC (Porcine) SC Loratadine 10 MG DAILY 02/19 2000 AC 02/20 PO 0907 Methylprednisolone 40 MG Q8 02/19 0600 AC 02/20 IV 0601 Montelukast Sodium 10 MG AT BEDTIME 02/18 2100 AC 02/19 PO 2204 Omeprazole 40 MG DAILY AC 02/19 0919 AC 02/20 PO 0601 Oxycodone HCl 30 MG Q4-6 PRN PRN 02/18 1815 AC 02/20 PO 1024 Paroxetine HCl 60 MG DAILY 02/21 09 AC PO Paroxetine HCl 30 MG ONCE ONE 02/20 0930 DC 02/20 PO 02/20 0931 1024 Paroxetine HCl 30 MG DAILY 02/19 0900 DC 02/20 PO 0907 Tiotropium [place] 1 PUF DAILY 02/19 0900 AC 02/20 INH 0908 Trazodone HCl 150 MG QPM 02/20 2100 AC PO Trazodone HCl 150 MG QPM 02/18 2100 DC 02/19 PO 2206 Trimethoprim/ 1 TAB DAILY 02/20 0900 AC 02/20 Sulfamethoxazole PO 0907 Trimethoprim/ 1 TAB BID 02/18 2100 DC 02/19 Sulfamethoxazole PO 0846 Vital Signs & I&O Last 24 Hrs of Vitals and I&O: Vital Signs Date Time Temp Pulse Resp B/P B/P Pulse O2 O2 Flow FiO2 Mean Ox Delivery Rate 02/20 0920 95 Nasal 2.0L Cannula 02/20 0800 Nasal 2.0L Cannula 02/20 0700 98.0 93 20 122/90 95 Nasal 2.0L Cannula 02/20 0000 88 02/20 0000 Nasal 2.0L Cannula 02/19 2328 98.1 108 20 125/67 93 Nasal 2.0L Cannula 02/19 2105 95 Nasal 2.0L Cannula 02/20 1600 Nasal 2.0L Cannula 02/19 1512 97.4 94 18 119/81 94 Room Air Intake & Output 02/20 1600 02/20 0800 02/20 0000 Intake Total 510 Output Total Balance 510 Intake, IV 30 Intake, Oral 480 Number 0 Bowel Movements Exam Other Physical Findings: Generally - Awake, alert Head and neck - normocephalic, atraumatic, EOMI grossly intact Cardiovascular - S1, S2, no murmurs, rubs or gallops Lungs -bilateral wheezing with a prolonged end expiratory phase Abdomen - Bowel sounds positive, soft, non-tender Extremities - without edema Impression/Plan Impression/Plan Impression/Plan: Impression 37-year-old woman * 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 * 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 * left sided infiltrate likely secondary to aspiration after a recent fall Plan -course of Augmentin -f/u check p-ANCA, c-ANCA, this is to rule out eosinophilic granulomatosis/ vasculitis -The patient has been reluctant to pursue lung biopsies and has had issues with follow-up with [place] [facility] -Given the above information she would be a good candidate to begin Nucala on an outpt basis -TRC/nebs -Change Solu-Medrol 40 mg IV every 12 hours -Continue Bactrim pneumocystis prophylaxis DVT prophylaxis at all times
[2018-02-20 14:58] VITALS: BP 126/78
[2018-02-20 16:19] LABS: ABSOLUTE BASOPHIL COUNT 0 /CUMM (0.0-0.2); ABSOLUTE EOSINOPHIL COUNT 0 /CUMM (0.0-0.7); ABSOLUTE GRANULOCYTE CT 11.7 /CUMM (1.4-6.5); ABSOLUTE LYMPH COUNT 1.2 /CUMM (1.2-3.4); ABSOLUTE MONOCYTE COUNT 0.4 /CUMM (0.10-0.60); BASOPHIL % 0 % (0.0-2.0); EOSINOPHIL % 0 % (0-5); HEMATOCRIT 35.9 % (37-47); MEAN CORPUSCULAR HGB 23.8 PG (27.0-31.0); MEAN CORPUSCULAR HGB CONC 31.9 G/DL (33.0-37.0); MEAN CORPUSCULAR VOLUME 74.5 FL (81.0-99.0); MEAN PLATELET VOLUME 8.3 FL (7.4-10.4); PLATELET COUNT 483 /CUMM (130-400); RED BLOOD CELL CT 4.82 /CUMM (4.20-5.40)
[2018-02-20 16:22] LABS: WHITE BLOOD CELL COUNT 13.4 /CUMM (4.8-10.8)
[2018-02-20 16:23] LABS: GRANULOCYTE % 87.6 % (42.2-75.2)
[2018-02-20 21:55] VITALS: BP 123/80
[2018-02-21 06:00] VITALS: BP 126/76
--- NOTE | 2018-02-21 06:06 | PN- Housestaff ---
See Addendum Subjective Follow-up For: Asthma exacerbation Subjective: Patient was seen and examined, she is sitting comfortably in bed, denies any complaints, no overnight events, stable vital signs, still on IV Solu-Medrol Review of Systems Constitutional: Reports: see HPI. Objective Last 24 Hrs of Vital Signs/I&O Vital Signs Date Time Temp Pulse Resp B/P B/P Pulse O2 O2 Flow FiO2 Mean Ox Delivery Rate 02/21 0812 96 Nasal 2.0L Cannula 02/21 0600 98.1 63 18 126/76 96 Nasal 2.0L Cannula 02/21 0000 Nasal 2.0L Cannula 02/20 2155 97.7 75 20 123/80 96 Nasal 2.0L Cannula 02/20 1850 94 Nasal 2.0L Cannula 02/20 1600 Nasal 2.0L Cannula 02/20 1458 98.2 100 18 126/78 95 Nasal 2.0L Cannula 02/20 0920 95 Nasal 2.0L Cannula Intake & Output 02/21 1600 02/21 0800 02/21 0000 Intake Total 120 600 Output Total Balance 120 600 Intake, IV 20 Intake, Oral 100 600 Physical Exam General Appearance: Alert, Oriented X3, Cooperative HEENT: Atraumatic, PERRLA, EOMI, Mucous Membr. 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 Patient has been seen repeatedly [facility] for similar complaints and has been referred for biopsy to confirm SCREED OPERATOR diagnosis. Patient on chronic steroids, abdominal pain is possibly due to reflux. Chest CT showed new focus of consolidation with air bronchogram at the left posterior costophrenic angle suggested, could possibly suggest aspiration pneumonia. Problems: #Asthma exacerbation #History of SCREED OPERATOR vs. CAP Plan: -F/u Pulmonology recommendations, consultation appreciated -Follow-up sputum cultures -Solu-medrol changed to 40mg IV Q12 hours, will taper according to pulmonology recommendation ANCA and IgE still pending -TRC for Duonebs -Omeprazole for GI prophylaxis -Continue Augmentin for possible aspiration PNA -Continue Paxil 60mg PO daily, this is the patient's home dose Full code Heparin & ALP Problem List: 1. Asthma exacerbation Pain Ratin Pain Location: N/A Pain Goal: Remain pain free Pain Plan: PATHWAY Tomorrow's Labs & Rationales: CBC BEP
[2018-02-21 08:25] LABS: ABSOLUTE BASOPHIL COUNT 0 /CUMM (0.0-0.2); ABSOLUTE EOSINOPHIL COUNT 0 /CUMM (0.0-0.7); ABSOLUTE GRANULOCYTE CT 11.7 /CUMM (1.4-6.5); ABSOLUTE LYMPH COUNT 1.7 /CUMM (1.2-3.4); ABSOLUTE MONOCYTE COUNT 0.6 /CUMM (0.10-0.60); BASOPHIL % 0 % (0.0-2.0); EOSINOPHIL % 0.1 % (0-5); MEAN CORPUSCULAR HGB 23.7 PG (27.0-31.0); MEAN CORPUSCULAR HGB CONC 31.6 G/DL (33.0-37.0); MEAN CORPUSCULAR VOLUME 75.1 FL (81.0-99.0); MEAN PLATELET VOLUME 8.4 FL (7.4-10.4); PLATELET COUNT 493 /CUMM (130-400); RBC DISTRIBUTION WIDTH 18.1 % (11.5-14.5); RED BLOOD CELL CT 4.93 /CUMM (4.20-5.40)
[2018-02-21 09:33] LABS: GRANULOCYTE % 83.6 % (42.2-75.2)
--- NOTE | 2018-02-21 13:41 | PN- Pulmonary ---
See Addendum Subjective HPI/Critical Care Issues: Patient seen and examined this morning. She appears to be doing much better today the wheezing has significantly been reduced. There is no nausea no vomiting no diarrhea no constipation. Mild headaches periodically. No chest pain. Objective Current Medications: Current Medications Sig/Nathan Start time Last Medication Dose Route Stop Time Status Admin Albuterol Sulfate 3 ML BID 02/19 2100 AC 02/20 INH 1929 Albuterol Sulfate 2 PUF Q4 PRN 02/18 1815 AC INH Amoxicillin/ 875 MG Q12 02/20 1135 AC 02/21 Clavulanate Potassium PO 1035 Budesonide/ 2 PUF BID 02/18 2100 AC 02/21 Formoterol Fumarate INH 1034 Gabapentin 300 MG TID 02/18 2100 AC 02/21 PO 1329 Heparin Sodium 5,000 UNIT Q8 02/18 2200 AC (Porcine) SC Loratadine 10 MG DAILY 02/19 2000 AC 02/21 PO 1035 Methylprednisolone 40 MG Q12 02/20 2100 AC 02/21 IV 1035 Methylprednisolone 40 MG Q8 02/19 0600 DC 02/20 IV 1416 Metoclopramide HCl 0 .STK-MED ONE 02/20 1903 DC .ROUTE Metoclopramide HCl 10 MG ONCE ONE 02/20 190 DC 02/20 IM 02/20 1901 1901 Montelukast Sodium 10 MG AT BEDTIME 02/18 2100 AC 02/20 PO 2157 Omeprazole 40 MG DAILY AC 02/19 0919 AC 02/21 PO 0609 Oxycodone HCl 30 MG Q4-6 PRN PRN 02/18 1815 AC 02/21 PO 1040 Paroxetine HCl 60 MG DAILY 02/21 09 AC 02/21 PO 1035 Patient Medication 1 ED ONE ONE 02/21 2000 [place] Teaching ED 02/20 2001 Tiotropium Ol[place] 1 PUF DAILY 02/19 09 AC 02/21 INH 1034 Trazodone HCl 150 MG QPM 02/20 2100 AC 02/20 PO 2157 Trimethoprim/ 1 TAB DAILY 02/20 09 AC 02/21 Sulfamethoxazole PO 1035 Vital Signs & I&O Last 24 Hrs of Vitals and I&O: Vital Signs Date Time Temp Pulse Resp B/P B/P Pulse O2 O2 Flow FiO2 Mean Ox Delivery Rate 02/22 812 96 Nasal 2.0L Cannula 02/21 0800 96 Nasal 2.0L Cannula 02/21 0600 98.1 63 18 126/76 96 Nasal 2.0L Cannula 02/21 0000 Nasal 2.0L Cannula 02/20 2155 97.7 75 20 123/80 96 Nasal 2.0L Cannula 02/20 1850 94 Nasal 2.0L Cannula 02/20 1600 Nasal 2.0L Cannula 02/20 1458 98.2 100 18 126/78 95 Nasal 2.0L Cannula Intake & Output 02/21 1600 02/21 0800 02/21 0000 Intake Total 120 600 Output Total Balance 120 600 Intake, IV 20 Intake, Oral 100 600 Exam Other Physical Findings: Generally - Awake, alert Head and neck - normocephalic, atraumatic, EOMI grossly intact Cardiovascular - S1, S2, no murmurs, rubs or gallops Lungs -improved bilateral wheezing with a prolonged end expiratory phase Abdomen - Bowel sounds positive, soft, non-tender Extremities - without edema Results Last 24 Hrs of Lab Results: Laboratory Tests 02/21/18 0702: Anion Gap 13, Estimated GFR > 60, BUN/Creatinine Ratio 25.7 H, CBC w Diff NO MAN DIFF REQ, RBC 4.93, MCV 75.1 L, MCH 23.7 L, MCHC 31.6 L, RDW 18.1 H, MPV 8.4, Gran % 83.6 H, Lymphocytes % 11.8 L, Monocytes % 4.5, Eosinophils % 0.1, Basophils % 0, Absolute Granulocytes 11.7 H, Absolute Lymphocytes 1.7, Absolute Monocytes 0.6, Absolute Eosinophils 0, Absolute Basophils 0 02/20/18 1530: Anion Gap 12, Estimated GFR > 60, BUN/Creatinine Ratio 22.9 02/20/18 1530: Sodium Cancelled, Potassium Cancelled, Chloride Cancelled, Carbon Dioxide Cancelled, Anion Gap Cancelled, BUN Cancelled, Creatinine Cancelled, BUN/ Creatinine Ratio Cancelled, CBC w Diff NO MAN DIFF REQ, RBC 4.82, MCV 74.5 L, MCH 23.8 L, MCHC 31.9 L, RDW 18.0 H, MPV 8.3, Gran % 87.6 H, Lymphocytes % 9.1 L, Monocytes % 3.3, Eosinophils % 0, Basophils % 0, Absolute Granulocytes 11.7 H, Absolute Lymphocytes 1.2, Absolute Monocytes 0.4, Absolute Eosinophils 0, Absolute Basophils 0, IgE Pending, ANCA Pending 02/20/18 1500: IgE Cancelled Impression/Plan Impression/Plan Impression/Plan: Impression 37-year-old woman * 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 * 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 * left sided infiltrate likely secondary to aspiration after a recent fall Plan -course of Augmentin for 7 days -f/u check p-ANCA, c-ANCA, this is to rule out eosinophilic granulomatosis/ vasculitis -The patient has been reluctant to pursue lung biopsies and has had issues with follow-up with [place] [facility] -Given the above information she would be a good candidate to begin Nucala on an outpt basis -TRC/nebs -Discontinue Solu-Medrol and begin prednisone 40 mg daily without a taper -Continue Bactrim pneumocystis prophylaxis DVT prophylaxis at all times Okay for discharge from a pulmonary perspective the patient has an appointment on March 02
[2018-02-21 14:03] VITALS: BP 134/87
[2018-02-21] MEDS ORDERED: OXYCODONE HCL30 M1 PO (15:04)
[2018-02-21] MEDS ORDERED: AUGMENTIN 500-1 EACH PO (15:04)
--- NOTE | 2018-02-22 08:36 | Discharge Summary ---
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 She has been admitted to [facility] on multiple occasions recently for similar complaints, most recently discharge on . On Wednesday 02/14 she first started feeling impending shortness of breath that has preceded her recent hospitalizations to the point where she found it difficult to ambulate without becoming profoundly SOB. Her dyspnea continued to worsen in spite of increased use of her inhaler at home, and she presented to the [facility] ED for relief. She reported productive cough, denied chest pain, fever or chills, nausea or vomiting. She denied sick contacts at home, but reported that this episode feels more like a pneumonia to her than an asthma exacerbation. She was admitted to the general medicine floor and started on Solu-medrol 40mg IV Q8h. She was also started on Bactrim for PCP PNA prophylaxis. CT chest findings were suggestive of possible aspiration PNA and the patient was also started on Augmentin. The patient had a high eosinophil count upon admission, and IgE and ANCA titers were sent out. As her SOB began to improve, her solu- medrol was reduced to be given every 12 hours. She was clinically monitored, and as she began to return to her baseline oxygen requirements and sympomatology, she was prepared for discharge on a course of PO augmentin, to resume her chronic PO steroid dose. Allergies: Coded Allergies: No Known Allergies (06/19/17) Pertinent Lab Results: CT Chest showed: 1. Chronic geographic groundglass opacities throughout both lungs similar to multiple prior exams. 2. Focus of consolidation with air bronchogram at the left posterior costophrenic angle which is new since prior exam. CXR showed: Progressive airspace opacity at the right base and probably also the left, possibly reflective of multifocal pneumonia in the correct clinical setting. 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 Comments: Last Taken: 02/21/18 Time: 10:30 AM Montelukast Sodium (Montelukast Sodium) 10 MG TABLET 10 Milligram ORAL AT BEDTIME Qty = 30 Instructions: . Comments: Last Taken: 02/20/18 Time: 10:00 PM Budesonide/Formoterol Fumarate (Symbicort 160-4.5 Mcg Inhaler) 160 MCG-4.5 MCG/ ACTUATION HFA.AER.AD 2 Puff Inhale through mouth TWICE DAILY Qty = 3 Instructions: . Comments: Last Taken: 02/21/18 Time: 10:30 AM Albuterol Sulfate (Proair Hfa) 90 MCG HFA.AER.AD 2 Puff Inhale through mouth EVERY 4-6 HOURS NEEDED as needed for RESPIRATORY Qty = 3 Instructions: . Comments: NOT GIVEN IN HOSPITAL Tiotropium Freedom (Spiriva) 18 MCG CAP.W.DEV 1 Capsule Inhale through mouth DAILY Qty = 3 Instructions: . Comments: Last Taken: 02/21/18 Time: 10:30 AM Gabapentin (Neurontin) 300 MG CAPSULE 1 Capsule ORAL THREE TIMES DAILY Comments: Last Taken: 02/21/18 Time: 1:30 PM Prednisone (Prednisone) 20 MG TABLET 2 Tablet ORAL DAILY Comments: NOT GIVEN IN HOSPITAL Oxycodone HCl (Oxycodone HCl) 30 MG TABLET 1 Tablet ORAL EVERY 4-6 HOURS NEEDED as needed for PAIN Qty = 5 Comments: Last Taken: 02/21/18 Time: 2:45 PM This prescription has been renewed Start taking the following new medications: Augmentin (Augmentin 500-125 Tablet) 500 MG-125 MG TABLET 1 Tablet ORAL TWICE DAILY Qty = 11 No Refills Comments: Last Taken:02/21/18 Time:1030 AM 875 MG DOSE GIVEN IN HOSPITAL The following medications have been changed: Old: Paroxetine HCl (Paroxetine HCl) 30 MG TABLET 1 Tablet ORAL DAILY New: Paroxetine HCl (Paroxetine HCl) 30 MG TABLET 2 Tablet ORAL DAILY Qty = 60 Comments: Last Taken: 02/21/18 Time: 10:30 AM Copies To: James CHAPARRO,Socrates Mehta; Lucina CHAPARRO,Quang Attending Review Statement Documenting Attending: Kaylen CHAPARRO,Sarath Other Findings: Patient to follow up with Pulmoan[facility] Dr Verdugo as outpatient in 1--2 weeks of discharge.
== END 2018-02-21 17:09 | DRG 202 ==
LOC: ERH 13:11 → ERHI 15:58 → 2NB 15:58 → ENRESERV 17:04 → ENTRNSPT 18:19 → EDTRNSPTSTS 18:33 → 2NB 18:43 → CMPTRNSPT 18:45 → 2NB 02-19 08:35
PROVIDERS: Emergency Medicine; Internal Medicine Endocrinology, Diabetes & Metabolism; Student in an Organized Health Care Education/Training Program
DX: J45.901 Unspecified asthma with (acute) exacerbation (principal); J69.0 Pneumonitis due to inhalation of food and vomit; J84.116 Cryptogenic organizing pneumonia; M79.7 Fibromyalgia; F41.9 Anxiety disorder, unspecified; D72.1 Eosinophilia; R09.02 Hypoxemia; Z79.52 Long term (current) use of systemic steroids; Z79.51 Long term (current) use of inhaled steroids; M26.609 Unspecified temporomandibular joint disorder, unspecified side
CPT/HCPCS: 2NBSP; 86021; 36415; 36592; 71046; 80307; 82436; 87070; J0456; J0696; J1644; J2765; J2920; J2930; J3490; J7040